=== PATIENT | male | born 1955 | race Caucasian/White ===

== ENCOUNTER → 2016-06-10 | Outpatient (CLI) | payer MEDICARE, BC ==
--- NOTE | 2016-06-11 08:43 | XR ---
Cervical spine HISTORY: Degenerative disc disease 5 views of the cervical spine on 6 images Comparison to previous exam 24 August thousand 13 Patient is status post anterior cervical fusion and discectomy at C5-C7. There is anatomic alignment. Prevertebral soft tissues are normal. Foraminal encroachment due to lateral extension of endplates i s present at C3-4 bilaterally. Cervical vertebral bodies show preserved height and bone mineralizatio n. There is likely facet arthropathy change. IMPRESSION: Postop changes, foraminal encroachment.
== END | disposition home or self-care (01) ==
LOC: RADXRYALE 11:09
PROVIDERS: ATTEND Physical Medicine & Rehabilitation
DX: M50.30 Other cervical disc degeneration, unspecified cervical region (principal); Z98.890 Other specified postprocedural states
CPT/HCPCS: 72050

== ENCOUNTER → 2016-07-29 | Outpatient (CLI) | payer MEDICARE, BC ==
[2016-07-29 11:00] LABS: Basophils % (A) 1 %; CH 27.2; CHCM 32.8; Eosinophils # (A) 0.2 k/uL (0-0.7); Eosinophils % (A) 3 %; HCT 35.3 % (39.0-53.0); HDW 3.25; HGB 11.9 gm/dL (13.0-17.5); Luc # (Auto) 0.16; Luc % (Auto) 2; Lymphocytes # (A) 2.8 k/uL (1.0-4.8); Lymphocytes % (A) 37 %; MCH 28.2 pg (25.0-35.0); MCHC 33.9 g/dL (31.0-37.0); MCV 83.4 fL (80.0-100.0); Mean Platelet Volume 6.6; Monocytes # (A) 0.5 k/uL (0-1.0); Monocytes % (A) 7 %; Neutrophils # (A) 3.8 k/uL (1.3-7.7); Neutrophils % (A) 51 %; RBC 4.23 m/uL (4.30-5.90); RDW 14.1 % (11.5-15.5); WBC 7.5 k/uL (3.8-10.6); WBC (Perox) 7.36
[2016-07-29 11:16] LABS: ALT 19 U/L (21-72); AST 13 U/L (17-59); Alkaline Phosphatase 113 U/L (38-126); Anion Gap 11 mmol/L; Blood Urea Nitrogen 11 mg/dL (9-20); Calcium 8.8 mg/dL (8.4-10.2); Carbon Dioxide 22 mmol/L (22-30); Chloride 106 mmol/L (98-107); Glucose 182 mg/dL (74-99); Non-African American GFR(MDRD) >60 (>60 ml/min/1.73 sqM); Potassium 3.8 mmol/L (3.5-5.1); Sodium 139 mmol/L (137-145); Total Bilirubin 0.5 mg/dL (0.2-1.3); Total Protein 7.6 g/dL (6.3-8.2)
== END | disposition home or self-care (01) ==
LOC: LABWHC1 10:15
PROVIDERS: ATTEND Internal Medicine Gastroenterology
DX: K50.819 Crohn's disease of both small and large intestine with unspecified complications (principal)
CPT/HCPCS: 36415; 80053; 85025; 86480

== ENCOUNTER 2016-08-22 23:13 | Emergency (ER) | payer MEDICARE, BC ==
[~2016-08-22 23:13] MED LIST: LORazepam 2 MG/ML SYRINGE ONE; METOCLOPRAMIDE 5 MG/ML 2 ML VIAL ONE; SODIUM CHLORIDE 0.9% 1,000 ML BAG ONE
[2016-08-23 00:41] LABS: Basophils # (A) 0.1 k/uL (0-0.2); Basophils % (A) 0 %; CH 27.3; CHCM 31.5; Eosinophils % (A) 0 %; HCT 43.4 % (39.0-53.0); HGB 13.5 gm/dL (13.0-17.5); Hypochromasia Slight; Luc % (Auto) 2; Lymphocytes # (A) 2.6 k/uL (1.0-4.8); Lymphocytes % (A) 13 %; MCHC 31.1 g/dL (31.0-37.0); Mean Platelet Volume 6.6; Monocytes % (A) 5 %; Neutrophils # (A) 15.6 k/uL (1.3-7.7); Neutrophils % (A) 80 %; RBC 4.99 m/uL (4.30-5.90); RDW 14.9 % (11.5-15.5); WBC 19.6 k/uL (3.8-10.6); WBC (Perox) 19.58
[2016-08-23 00:42] LABS: Prothrombin Time 10.1 sec (9.0-12.0)
[2016-08-23 00:43] LABS: Partial Thromboplastin Time 21.7 sec (22.0-30.0)
[2016-08-23 00:44] LABS: Creatine Kinase 98 U/L (55-170); Creatine Kinase MB <0.2 ng/mL (0.0-2.4); Troponin I 0.013 ng/mL (0.000-0.034)
[2016-08-23 00:45] LABS: ALT 28 U/L (21-72); AST 29 U/L (17-59); Alkaline Phosphatase 175 U/L (38-126); Amylase 60 U/L (30-110); Anion Gap 24 mmol/L; Blood Urea Nitrogen 15 mg/dL (9-20); Carbon Dioxide 11 mmol/L (22-30); Chloride 104 mmol/L (98-107); Non-African American GFR(MDRD) 44 (>60 ml/min/1.73 sqM); Sodium 139 mmol/L (137-145); Total Bilirubin 0.5 mg/dL (0.2-1.3); Total Protein 8.4 g/dL (6.3-8.2)
[2016-08-23 00:46] LABS: Glucose 451 mg/dL (74-99)
[2016-08-23 00:55] LABS: Amorphous Sediment,Urine Rare /hpf; Appearance,Urine Cloudy (Clear); Bilirubin,Urine Negative (Negative); Glucose,Urine (UA) 4+ (Negative); Granular Casts,Urine 24 /lpf (0); Ketones,Urine Negative (Negative); Leukocyte Esterase,Urine Negative (Negative); Mucus,Urine Rare /hpf; Nitrite,Urine Negative (Negative); PH, Urine 5.5 (5.0-8.0); Particle Count 8661; Protein,Urine 2+ (Negative); RBC,Urine 5 /hpf (0-5); Specific Gravity,Urine 1.017 (1.001-1.035); UA Billing (MACRO vs. MICRO) MICRO; Urobilinogen,Urine <2.0 mg/dL (<2.0); WBC,Urine 10 /hpf (0-5)
[2016-08-23] MEDS ORDERED: INSULIN REGULAR 100 UNIT/ML VIAL ONE (01:00)
[2016-08-23] MEDS ORDERED: HYDROCORTISONE SUCCINATE 100 MG/2 ML VIAL ONE (01:00)
[2016-08-23] MEDS ORDERED: POTASSIUM CHLORIDE 10 MEQ in WATER FOR INJECTION 1 100ML.BAG IVPB SCH (02:00)
[2016-08-23] MEDS ORDERED: HYDROCORTISONE SUCCINATE 100 MG/2 ML VIAL IV STA (02:00)
[2016-08-23 02:22] LABS: ABG Base Excess -5.3 mmol/L; ABG HCO3 19 mmol/L (21-25); ABG PCO2 33 mmHg (35-45); ABG PH 7.38 (7.35-7.45); ABG PO2 115 mmHg (83-108); ABG TCO2 20 mmol/L (19-24)
[2016-08-23] MEDS ORDERED: LORazepam 2 MG/ML SYRINGE ONE (02:52)
--- NOTE | 2016-08-23 03:59 | XR ---
EXAM: XR Chest, 1 View CLINICAL HISTORY: Altered mental status. TECHNIQUE: Frontal view of the chest. COMPARISON: CXR dated 04/24/2016. FINDINGS: Lungs: Slightly low lung volumes with mild prominence of interstitial markings. Retrocardiac opacity. Pleural space: Blunting of costophrenic angles which may represent pleural effusions or pleural-parenchymal disease, also present on prior CXR. No evidence of pneumothorax. Heart: Cardiac silhouette size within normal limits. Mediastinum: Stable postsurgical changes along the left mediastinum. Bones/joints: Stable osseous structures. Anterior spinal fusion hardware in the lower cervical spine. IMPRESSION: 1. Slightly low lung volumes with mild prominence of interstitial markings. 2. Retrocardiac opacity, possibly atelectasis. 3. Blunting of costophrenic angles which may represent small pleural effusions or pleural-parenchymal disease.
[2016-08-23 04:42] LABS: Glucose,Whole Blood 484 mg/dL (75-99)
--- NOTE | 2016-08-23 06:00 | CT ---
EXAM: CT Head Without Intravenous Contrast CLINICAL HISTORY: AMS, restless. TECHNIQUE: Axial computed tomography images of the head/brain without intravenous contrast. Coronal and sagittal reformations provided. DOSE INFORMATION: CTDI is 60.30 mGy and DLP is 1180.90 mGy-cm. This CT exam was performed using one or more of the following dose reduction techniques: automated exposure control, adjustment of the mA and/or kV according to patient size, and/or use of iterative reconstruction technique. COMPARISON: No relevant prior studies available. FINDINGS: Brain: Hyperdense 6 mm focus in the left temporal lobe. Motion artifact somewhat limits evaluation of the supratentorial brain. There is apparent loss of ibarra-white differentiation/sulcation in the right frontal lobe which is favored to be artifactual. Additionally, there is faintly increased attenuation of right frontal sulci which also may be artifactual. No significant white matter disease. No mass effect or midline shift. Ventricles: Unremarkable. No ventriculomegaly. Bones/joints: Unremarkable. No acute fracture. Soft tissues: Unremarkable. Sinuses: Opacity/debris in the left maxillary sinus with air-fluid level. Mild mucosal thickening in the ethmoid sinuses. Remainder of paranasal sinuses otherwise clear. Mastoid air cells: Unremarkable as visualized. No mastoid effusion. IMPRESSION: 1. Hyperdense 6 mm focus in the left temporal lobe. This finding has the appearance of a small cavernous malformation although other lesion or focus of hemorrhage not excluded. MRI with and without contrast recommended for further evaluation. 2. Somewhat limited examination of supratentorial brain due to motion with apparent loss of ibarra-white differentiation/sulcation in the right frontal lobe which may be artifactual. Additionally, there is faintly increased attenuation of right frontal sulci which also may be artifactual with other etiologies such as leptomeningeal vascular congestion or subarachnoid hemorrhage considered less likely. If there is clinical concern for right MCA infarct, CTA and/or MRI can be obtained. 3. Opacity/debris in the left maxillary sinus with air-fluid level. Correlate for acute sinusitis.
== END 2016-08-23 04:23 | disposition other institution (70) ==
LOC: EC 23:46
DX: G40.89 Other seizures (principal); E11.649 Type 2 diabetes mellitus with hypoglycemia without coma; E87.6 Hypokalemia; R41.82 Altered mental status, unspecified; R11.2 Nausea with vomiting, unspecified; Z91.030 Bee allergy status; Z88.8 Allergy status to other drugs, medicaments and biological substances
CPT/HCPCS: 99285; 96374; 96375 ×3; 96361 ×3; 96372; 36415; 36600; 93005; 80053; 82150; 82550; 82553; 82805; 82009; 83690; 84484; 85025; 85610; 85730; 81001; 80306; 71010; 70450; J2060 ×2; J2765; J1720; J3480

== ENCOUNTER → 2017-05-03 | Outpatient (CLI) | payer MEDICARE, BC ==
[2017-05-03 09:12] LABS: HCT 37.6 % (39.0-53.0); HGB 11.3 gm/dL (13.0-17.5); Hypochromasia Moderate; MCH 25.8 pg (25.0-35.0); MCHC 30.2 g/dL (31.0-37.0); MCV 85.3 fL (80.0-100.0); Mean Platelet Volume 6.2; Platelet Count 216 k/uL (150-450); RDW 14.9 % (11.5-15.5); WBC 7.3 k/uL (3.8-10.6)
[2017-05-03 09:30] LABS: Anion Gap 11 mmol/L; Blood Urea Nitrogen 19 mg/dL (9-20); Carbon Dioxide 25 mmol/L (22-30); Chloride 104 mmol/L (98-107); Potassium 3.7 mmol/L (3.5-5.1); Sodium 140 mmol/L (137-145)
== END | disposition home or self-care (01) ==
LOC: LABPAT 08:36 → CATHCVL 09:11
PROVIDERS: ATTEND Internal Medicine Cardiovascular Disease
DX: Z01.812 Encounter for preprocedural laboratory examination (principal); I25.10 Atherosclerotic heart disease of native coronary artery without angina pectoris
CPT/HCPCS: 80051; 82565; 84520; 85027

== ENCOUNTER → 2017-05-03 | Day surgery (SDC) | payer MEDICARE, BC ==
[2017-04-26 09:39] VITALS: BMI 28.3
[~2017-05-03] MED LIST changes: +ALPRAZolam 0.25 MG TAB PO PRN; +ALPRAZolam 0.5 MG TAB PO PRN; +ATORVASTATIN 80 MG TAB PO STA; +HYDROcodone/APAP 5-325MG 1 EACH TAB PO PRN; +HYDROmorphone 0.5 MG/0.5 ML SYRINGE IVP STA; +IOHEXOL 350 MG/ML 125ML BOTTLE INJ ONE; +LIDOCAINE 2% INJ 20 MG/ML (20 ML MDV) ONE; +LIDOCAINE 2% INJ 20 MG/ML SQ ONE; -LORazepam 2 MG/ML SYRINGE ONE; -METOCLOPRAMIDE 5 MG/ML 2 ML VIAL ONE; +MIDAZOLAM 2 MG/2 ML VIAL IV ONE; +MIDAZOLAM 2 MG/2 ML VIAL ONE; +NITROGLYCERIN SL TABS 0.4 MG TAB SUBLINGUAL PRN; +RX INFO: IV CONTRAST WAS GIVEN 1 EACH MISC MISCELLANE PRN; -SODIUM CHLORIDE 0.9% 1,000 ML BAG ONE; +SODIUM CHLORIDE 0.9% 1,000 ML IV SCH; +SODIUM CHLORIDE 0.9% 1,000 ML in EMPTY BAG 1 BAG IV ONE; +fentaNYL (PF) 50 MCG/ML 2 ML AMP IV ONE; +fentaNYL (PF) 50 MCG/ML 2 ML AMP ONE
[2017-05-03 10:29] VITALS: RESP 18
[2017-05-03 10:44] LABS: Glucose,Whole Blood 136 mg/dL (75-99)
[2017-05-03 11:18] LABS: INR 1.1 (<1.2); Prothrombin Time 10.5 sec (9.0-12.0)
--- NOTE | 2017-05-03 13:03 | P.PCN ---
Date of Procedure: 05/03/17 Preoperative Diagnosis: Recurrent chest pains in her multiple risk factors Postoperative Diagnosis: No significant coronary artery disease except mild ectasia in the proximal LAD Procedure(s) Performed: Left heart catheterization without left ventriculography Description of Procedure: HISTORY: This is a 61-year-old gentleman with multiple risk factors including hypertension hypercholesterolemia and diabetes who has been having recurrent chest pains. Though his nuclear stress test was negative, patient was advised to have a cardiac catheterization by Dr. Quispe to rule out underlying ischemic heart disease. CONSENT:I have discussed the risks, benefits and alternative therapies for the above-mentioned procedure and for both sedation/analgesia as well as necessary blood product administration, if indicated, as they pertain to this patient. The patient has indicated understanding and acceptance of the risks and procedures discussed. [] PROCEDURE: Patient was brought to the lab in a fasting state. Patient was given some IV sedation. The right groin is infiltrated with lidocaine and right femoral artery was entered using Seldinger technique. A 6-Indian catheter was left in place and selective coronary arteriography was performed. Patient tolerated the procedure well. Femoral angiogram was performed and Angio-Seal was applied for hemostasis. No immediate complications were noted and patient was transferred to [facility] in a stable condition Conscious Sedation: Versed 1 mg Fentanyl 50 g Duration 18 minutes HEMODYNAMICS: The aortic pressure is about 120/70. Left with an end-diastolic pressure is about 5-10. There was no gradient across the aortic valve SELECTIVE CORONARY ARTERIOGRAPHY: LEFT MAIN: Almost nonexistent with a separate origin of the LAD and circumflex THE LEFT ANTERIOR DESCENDING CORONARY ARTERY:. This is a good caliber vessel with mild to moderate ectatic changes in the proximal portion. No significant focal occlusive disease noted in LAD or its branches. This a good caliber vessel THE LEFT CIRCUMFLEX AND IS CORONARY ARTERY:. This is a good caliber vessel. Free of occlusive disease . circumflex is a dominant vessel THE RIGHT CORONARY ARTERY: Nondominant vessel free of any occlusive disease LEFT VENTRICULOGRAPHY:. Not performed FINAL IMPRESSION:, Mild coronary artery disease with ectasia of the proximal LAD without any significant focal occlusive lesions PLAN: Medical therapy and risk factor modification PROGNOSIS: Fair
[2017-05-03 13:16] LABS: Glucose,Whole Blood 121 mg/dL (75-99)
[2017-05-03 18:04] VITALS: BP 131/79; PULSE 72; TEMP 97.8
== END ==
LOC: CATHCVL 10:30
PROVIDERS: ATTEND Internal Medicine Cardiovascular Disease
DX: I25.10 Atherosclerotic heart disease of native coronary artery without angina pectoris (principal); I42.8 Other cardiomyopathies; I10 Essential (primary) hypertension; Z87.891 Personal history of nicotine dependence; E78.00 Pure hypercholesterolemia, unspecified; E78.5 Hyperlipidemia, unspecified; E11.9 Type 2 diabetes mellitus without complications; Z79.4 Long term (current) use of insulin; Z86.73 Personal history of transient ischemic attack (TIA), and cerebral infarction without residual deficits; J45.909 Unspecified asthma, uncomplicated; Z82.49 Family history of ischemic heart disease and other diseases of the circulatory system; Z79.899 Other long term (current) drug therapy; Z79.51 Long term (current) use of inhaled steroids; Z79.52 Long term (current) use of systemic steroids; Z88.6 Allergy status to analgesic agent; Z88.5 Allergy status to narcotic agent; Z88.0 Allergy status to penicillin; Z88.8 Allergy status to other drugs, medicaments and biological substances
CPT/HCPCS: 93458; 85610; C1760; C1894; C1769; J2001; J2250; J3010; Q9967; J1170; 80051; 82565; 84520; 85027

== ENCOUNTER 2017-06-05 11:38 | Inpatient (IN) | payer MEDICARE, BC ==
[2017-06-05] MEDS ORDERED: IPRATROPIUM-ALBUTEROL 3 ML NEB INHALATION STA (11:58)
[2017-06-05] MEDS ORDERED: SODIUM CHLORIDE 0.9% 1,000 ML IV STA ×2 (11:58)
--- NOTE | 2017-06-05 12:01 | ED ---
Dizziness HPI - General Chief Complaint: Dizziness Stated Complaint: stroke-like symptoms; hx of previous stroke Time Seen by Provider: 06/05/17 11:45 Source: patient, RN notes reviewed Mode of arrival: wheelchair Limitations: no limitations - History of Present Illness Initial Comments: This is a 61-year-old male with a history of a hemorrhagic stroke this previous year who presents with 4 days of onset of lightheadedness dizziness generalized weakness he also states when he tries ambulate he drifts off to the left. He states it feels identical to his previous hemorrhagic stroke that he had last year. He denies any focal deficits to his arms or legs. He does have a generalized headache he also does report that his INR was elevated at over 4 with the last couple days. He is instructed to rest and not take his Coumadin. He is also decreased oral intake he's had nausea vomiting no diarrhea he does however state when he vomits he has been vomiting up dark blood. MD Complaint: dizziness, lightheadedness, difficulty walking, other - Related Data Home Medications Medication Instructions Recorded Confirmed Budesonide-Formot 160-4.5 Mcg 2 puff INHALATION RT-BID 11/13/13 06/05/17 [Symbicort 160-4.5 Mcg Inhaler] Sulfamethox-Tmp 800-160Mg [Bactrim 1 tab PO DAILY 11/13/13 06/05/17 DS 800-160 mg] Tiotropium 18 Mcg/Puff [Spiriva] 1 puff INHALATION RT-DAILY 11/13/13 06/05/17 Promethazine [Phenergan] 25 mg PO Q8HR PRN 02/20/14 06/05/17 Albuterol Inhaler [Ventolin Hfa 2 puff INHALATION RT-Q4H PRN 02/22/17 06/05/17 Inhaler] Atorvastatin [Lipitor] 20 mg PO HS 02/22/17 06/05/17 Esomeprazole Magnesium [NexIUM] 40 mg PO BID 02/22/17 06/05/17 HYDROcodone/APAP 5-325MG [[place] 1 tab PO Q6HR PRN 02/22/17 06/05/17 5-325] Insulin Glargine [Lantus] 24 unit SQ HS 02/22/17 06/05/17 Insulin Lispro [humaLOG Kwikpen] 17 unit SQ QAM 02/22/17 06/05/17 Warfarin [Coumadin] 5 mg PO DAILY 02/22/17 06/05/17 levETIRAcetam [Keppra] 500 mg PO QAM 02/22/17 06/05/17 levETIRAcetam [Keppra] 1,000 mg PO HS 03/10/17 06/05/17 Albuterol Nebulized [Ventolin 2.5 mg INHALATION RT-Q4H PRN 04/26/17 06/05/17 Nebulized] Insulin Lispro [humaLOG Kwikpen] 16 unit SQ W/SUPPER 04/26/17 06/05/17 Insulin Lispro [humaLOG Kwikpen] 17 unit SQ W/LUNCH 04/26/17 06/05/17 LORazepam [Ativan] 0.5 mg PO Q6HR PRN 04/26/17 06/05/17 Nitroglycerin Sl Tabs [Nitrostat] 0.4 mg SUBLINGUAL Q5M PRN 04/26/17 06/05/17 Zolpidem [Ambien] 10 mg PO HS PRN 04/26/17 06/05/17 Allergies Allergy/AdvReac Type Severity Reaction Status Date / Time aspirin Allergy Swelling Verified 06/05/17 12:41 nalbuphine HCl [From Nubain] Allergy Vomiting Verified 06/05/17 12:41 ondansetron HCl [From Zofran] Allergy Unknown Verified 06/05/17 12:41 penicillin G Allergy Rash/Hives Verified 06/05/17 12:41 venom-wasp [Wasp Venom] Allergy Anaphylaxis Verified 06/05/17 12:41 Review of Systems ROS Statement: Those systems with pertinent positive or pertinent negative responses have been documented in the HPI. ROS Other: All systems not noted in ROS Statement are negative. Past Medical History Past Medical History: Asthma, CVA/TIA, Diabetes Mellitus, Deep Vein Thrombosis ( DVT), GERD/Reflux, Osteoarthritis (OA), Skin Disorder Additional Past Medical History / Comment(s): HX OF KIDNEY STONES, CROHNS DISEASE, HX OF BLOOD CLOT RT ARM AND BEHIND RT KNEE, TIA/seizure/brain bleed 2016, see Dr Wright H&P, "spots of dry skin", hx anemia History of Any Multi-Drug Resistant Organisms: MRSA Date of last positivie culture/infection: 2006 MDRO Source:: nose Past Surgical History: Appendectomy, Back Surgery, Bowel Resection, Cholecystectomy, Heart Catheterization, Prostate Surgery Additional Past Surgical History / Comment(s): BOWEL RESECTION X 5, SPINAL SURGERIES X3, LEFT LOBECTOMY. lithotripsy, TURP, neck fusion Past Anesthesia/Blood Transfusion Reactions: No Reported Reaction Past Psychological History: No Psychological Hx Reported Smoking Status: Former smoker Past Alcohol Use History: None Reported Past Drug Use History: None Reported - Past Family History Mother Family Medical History: Deep Vein Thrombosis (DVT) General Exam - General Exam Comments Initial Comments: This is a well-developed well-nourished awake alert oriented 3 male Limitations: no limitations General appearance: alert, in no apparent distress Head exam: Present: atraumatic, normocephalic, normal inspection Eye exam: Present: PERRL, EOMI, other (He does demonstrate some lateral gaze to his right eye which he states is normal for him.). Absent: scleral icterus, conjunctival injection, periorbital swelling ENT exam: Present: mucous membranes dry Neck exam: Present: normal inspection. Absent: tenderness, meningismus, lymphadenopathy Respiratory exam: Present: normal lung sounds bilaterally. Absent: respiratory distress, wheezes, rales, rhonchi, stridor Cardiovascular Exam: Present: normal rhythm, tachycardia, normal heart sounds. Absent: systolic murmur, diastolic murmur, rubs, gallop, clicks GI/Abdominal exam: Present: soft, tenderness (Mild epigastric pain no guarding or rebound), normal bowel sounds. Absent: distended, guarding, rebound, rigid Extremities exam: Present: normal inspection, full ROM, normal capillary refill. Absent: tenderness, pedal edema, joint swelling, calf tenderness Back exam: Present: normal inspection Neurological exam: Present: alert, oriented X3, CN II-XII intact Psychiatric exam: Present: normal affect, normal mood Skin exam: Present: warm, dry, intact, normal color. Absent: rash Course Vital Signs 06/05/17 06/05/17 06/05/17 11:41 12:46 12:54 Temperature 98.1 F Pulse Rate 103 H 100 104 H Respiratory 20 Rate Blood Pressure 92/64 O2 Sat by Pulse 98 Oximetry 06/05/17 13:17 Temperature Pulse Rate 97 Respiratory 20 Rate Blood Pressure 90/52 O2 Sat by Pulse 97 Oximetry EKG Findings - EKG Results: EKG: interpreted by ERMD (Sinus tachycardia rate of 103 appear of 01 76 QRS 96 QT since QTC of 350/468 nonspecific inferior configuration.) Medical Decision Making - Medical Decision Making I did discuss findings with the patient family members patient will be admitted for evaluation he does demonstrate addition to the dizziness dehydration acute renal failure syndrome hypo-ketonemia hypomagnesemia. He did have an episode of hypotension. - Lab Data Result diagrams: 06/05/17 12:20 06/05/17 12:20 Lab Results 06/05/17 06/05/17 06/05/17 Range/Units 12:17 12:20 12:20 WBC (3.8-10.6) k/uL RBC (4.30-5.90) m/uL Hgb (13.0-17.5) gm/dL Hct (39.0-53.0) % MCV (80.0-100.0) fL MCH (25.0-35.0) pg MCHC (31.0-37.0) g/dL RDW (11.5-15.5) % Plt Count (150-450) k/uL Neutrophils % % Lymphocytes % % Monocytes % % Eosinophils % % Basophils % % Neutrophils # (1.3-7.7) k/uL Lymphocytes # (1.0-4.8) k/uL Monocytes # (0-1.0) k/uL Eosinophils # (0-0.7) k/uL Basophils # (0-0.2) k/uL Poikilocytosis Microcytosis PT 29.7 H (9.0-12.0) sec INR 3.3 H (<1.2) Sodium (137-145) mmol/L Potassium (3.5-5.1) mmol/L Chloride (98-107) mmol/L Carbon Dioxide (22-30) mmol/L Anion Gap mmol/L BUN (9-20) mg/dL Creatinine (0.66-1.25) mg/dL Est GFR (MDRD) Af Amer (>60 ml/min/1.73 sqM) Est GFR (MDRD) Non-Af (>60 ml/min/1.73 sqM) Glucose (74-99) mg/dL POC Glucose (mg/dL) 218 H (75-99) mg/dL POC Glu Access Rn ID Alicja Hernández Calcium (8.4-10.2) mg/dL Magnesium (1.6-2.3) mg/dL Total Bilirubin (0.2-1.3) mg/dL AST (17-59) U/L ALT (21-72) U/L Alkaline Phosphatase (38-126) U/L Total Creatine Kinase (55-170) U/L CK-MB (CK-2) (0.0-2.4) ng/mL CK-MB (CK-2) Rel Index Troponin I (0.000-0.034) ng/mL NT-Pro-B Natriuret Pep 46 pg/mL Total Protein (6.3-8.2) g/dL Albumin (3.5-5.0) g/dL Amylase (30-110) U/L Lipase (23-300) U/L 06/05/17 06/05/17 06/05/17 Range/Units 12:20 12:20 12:20 WBC 11.3 H (3.8-10.6) k/uL RBC 5.38 (4.30-5.90) m/uL Hgb 13.3 (13.0-17.5) gm/dL Hct 41.1 (39.0-53.0) % MCV 76.5 L D (80.0-100.0) fL MCH 24.7 L (25.0-35.0) pg MCHC 32.3 (31.0-37.0) g/dL RDW 14.8 (11.5-15.5) % Plt Count 458 H D (150-450) k/uL Neutrophils % 53 % Lymphocytes % 35 % Monocytes % 9 % Eosinophils % 1 % Basophils % 0 % Neutrophils # 5.9 (1.3-7.7) k/uL Lymphocytes # 4.0 (1.0-4.8) k/uL Monocytes # 1.0 (0-1.0) k/uL Eosinophils # 0.2 (0-0.7) k/uL Basophils # 0.1 (0-0.2) k/uL Poikilocytosis Slight Microcytosis Slight PT (9.0-12.0) sec INR (<1.2) Sodium 140 (137-145) mmol/L Potassium 3.2 L (3.5-5.1) mmol/L Chloride 107 (98-107) mmol/L Carbon Dioxide 13 L (22-30) mmol/L Anion Gap 20 mmol/L BUN 45 H (9-20) mg/dL Creatinine 2.11 H (0.66-1.25) mg/dL Est GFR (MDRD) Af Amer 39 (>60 ml/min/1.73 sqM) Est GFR (MDRD) Non-Af 32 (>60 ml/min/1.73 sqM) Glucose 229 H (74-99) mg/dL POC Glucose (mg/dL) (75-99) mg/dL POC Glu Access Rn ID Calcium 10.1 (8.4-10.2) mg/dL Magnesium 1.4 L (1.6-2.3) mg/dL Total Bilirubin 0.7 (0.2-1.3) mg/dL AST 17 (17-59) U/L ALT 22 (21-72) U/L Alkaline Phosphatase 182 H (38-126) U/L Total Creatine Kinase 75 (55-170) U/L CK-MB (CK-2) 0.5 (0.0-2.4) ng/mL CK-MB (CK-2) Rel Index 0.7 Troponin I <0.012 (0.000-0.034) ng/mL NT-Pro-B Natriuret Pep pg/mL Total Protein 8.4 H (6.3-8.2) g/dL Albumin 4.4 (3.5-5.0) g/dL Amylase 56 (30-110) U/L Lipase 214 (23-300) U/L - Radiology Data Radiology results: report reviewed (I did review the imaging and reports no acute findings no evidence of bleed.), image reviewed Critical Care Time Critical Care Time: Yes Critical Care Time: 31 minutes of critical care time which includes initial presentation with history physical labs x-rays reevaluation the patient and discussed with patient family members regarding findings. Discussion with the main physician documentation the above and admission orders. Disposition Clinical Impression: Orthostatic hypotension, Dehydration, Acute renal failure, Hypokalemia, Hypomagnesemia Disposition: ADMITTED IP TO THIS HOSP Condition: Stable Referrals: Adela Lorenz MD [Primary Care Provider] - 1-2 days
--- NOTE | 2017-06-05 12:25 | CT ---
EXAMINATION TYPE: CT brain wo con DATE OF EXAM: 06/05/2017 COMPARISON: Previous study dated 08/23/2016 HISTORY: Weakness, stroke like symptoms CT DLP: 1029 mGycm Automated exposure control for dose reduction was used. FINDINGS: Hyperdense focus in the left temporal lobe has resolved. Central structures are midline. There is no evidence of hydrocephalus. No acute focal lesion, mass ef fect or midline shift is seen. I do not see evidence of intracranial blood. There is a chronic, 2.2 cm retention cyst or polyp in the left maxillary sinus. Visualized portions o f the paranasal sinuses and mastoids are otherwise clear. The bony calvarium is intact. IMPRESSION: 1. NO ACUTE INTRACRANIAL ABNORMALITY. 2. CHRONIC LEFT MAXILLARY SINUS MUCOSAL DISEASE.
[2017-06-05 12:27] LABS: Glucose,Whole Blood 218 mg/dL (75-99)
--- NOTE | 2017-06-05 12:38 | XR ---
EXAMINATION TYPE: XR chest 1V portable DATE OF EXAM: 06/05/2017 HISTORY: pain. REFERENCE: Previous study dated 04/29/2017. FINDINGS: There is a chronic right pleural reaction which may represent pleural fluid or thickening. There is a partial eventration of the right hemidiaphragm. The left lung is clear. Heart size is norm al. Note is made of a previous ACDF in the lower cervical spine. IMPRESSION: CHRONIC RIGHT PLEURAL REACTION.
[2017-06-05 12:45] LABS: INR 3.3 (<1.2); Prothrombin Time 29.7 sec (9.0-12.0)
[2017-06-05] MEDS ORDERED: HYDROmorphone 0.5 MG/0.5 ML SYRINGE IVP STA (13:19)
[2017-06-05] MEDS ORDERED: PROMETHAZINE INJ 25 MG in SODIUM CHLORIDE 0.9% 50 ML IVPB STA (13:26)
[2017-06-05 13:55] LABS: Basophils # (A) 0.1 k/uL (0-0.2); Basophils % (A) 0 %; Eosinophils # (A) 0.2 k/uL (0-0.7); Eosinophils % (A) 1 %; HCT 41.1 % (39.0-53.0); HGB 13.3 gm/dL (13.0-17.5); Lymphocytes % (A) 35 %; MCH 24.7 pg (25.0-35.0); MCHC 32.3 g/dL (31.0-37.0); Microcytosis Slight; Monocytes % (A) 9 %; Neutrophils # (A) 5.9 k/uL (1.3-7.7); Neutrophils % (A) 53 %; Poikilocytosis Slight; RBC 5.38 m/uL (4.30-5.90); RDW 14.8 % (11.5-15.5); WBC 11.3 k/uL (3.8-10.6)
[2017-06-05 14:01] LABS: Creatine Kinase 75 U/L (55-170)
[2017-06-05 14:02] LABS: Albumin 4.4 g/dL (3.5-5.0); Calcium 10.1 mg/dL (8.4-10.2); Magnesium 1.4 mg/dL (1.6-2.3); Potassium 3.2 mmol/L (3.5-5.1); Total Bilirubin 0.7 mg/dL (0.2-1.3); Total Protein 8.4 g/dL (6.3-8.2)
[2017-06-05 14:14] LABS: Creatine Kinase MB 0.5 ng/mL (0.0-2.4); Troponin I <0.012 ng/mL (0.000-0.034)
[2017-06-05 14:20] LABS: MCV 76.5 fL (80.0-100.0)
[2017-06-05 14:21] LABS: Platelet Count 458 k/uL (150-450)
[2017-06-05] MEDS ORDERED: MAGNESIUM SULFATE-D5W PMX 1 GM in DEXTROSE/WATER 1 100ML.BAG IVPB ONE (14:29)
[2017-06-05] MEDS ORDERED: NALOXONE 0.4 MG/ML 1 ML VIAL IV PRN (14:34)
[2017-06-05] MEDS ORDERED: ZOLPIDEM 10 MG TAB PO PRN (14:37)
[2017-06-05] MEDS ORDERED: NITROGLYCERIN SL TABS 0.4 MG TAB SUBLINGUAL PRN (14:37)
[2017-06-05] MEDS ORDERED: LORazepam 0.5 MG TAB PO PRN (14:37)
[2017-06-05] MEDS ORDERED: ALBUTEROL NEBULIZED 2.5 MG/3 ML INHALATION PRN (14:37)
[2017-06-05] MEDS ORDERED: HYDROcodone/APAP 5-325MG 1 EACH TAB PO PRN (14:37)
[2017-06-05] MEDS ORDERED: ALBUTEROL INHALER 60 PUFF/8 GM INHALER INHALATION PRN (17:05)
[2017-06-05 18:30] LABS: Glucose,Whole Blood 169 mg/dL (75-99)
[2017-06-05] MEDS: INSULIN ASPART 100 UNIT/ML 1 ML 10 ML VIAL SQ SCH (18:36)
[2017-06-05] MEDS: 0.9% NACL WITH KCL 20 MEQ/L 1,000 ML IV SCH (19:12)
[2017-06-05] MEDS: HYDROcodone/APAP 10-325MG 1 EACH TAB PO PRN (19:12)
[2017-06-05] MEDS: SYMBICORT 160-4.5 MCG INHALER INHALATION SCH (20:50)
[2017-06-05] MEDS: IPRATROPIUM 0.5 MG/2.5 ML NEBU INHALATION SCH (20:51)
[2017-06-05 21:02] LABS: Glucose,Whole Blood 200 mg/dL (75-99)
[2017-06-05] MEDS: SODIUM BICARBONATE TAB 650 MG TAB PO SCH (22:23)
[2017-06-05] MEDS: PANTOPRAZOLE 40 MG TABLET PO SCH (22:23)
[2017-06-05] MEDS: levETIRAcetam 500 MG TAB PO SCH (22:23)
[2017-06-05] MEDS: ATORVASTATIN 20 MG TAB PO SCH (22:23)
[2017-06-05] MEDS: INSULIN DETEMIR 100 UNIT/ML 10 ML VIAL SQ SCH (22:24)
--- NOTE | 2017-06-05 22:58 | HP ---
HISTORY AND PHYSICAL DATE OF SERVICE: 06/05/2017 CHIEF COMPLAINTS: Dizziness. HISTORY OF PRESENT ILLNESS: This 61-year-old gentleman with a past medical history of multiple problems including asthma, CVA, TIA, history of DVT, GERD, DJD being followed by Dr. Lorenz in the outpatient setting, not feeling well today. For the last 3 or 4 days patient had lightheadedness and dizziness and the patient was in the left side and because of concerns of new stroke, the patient came to [facility] and was admitted to the hospital for further evaluation and treatment. Orthostatic hypotension was suspected. Brain CT showed no acute abnormality. There is no history of fever, rigors or chills. No history of headache, loss of consciousness, seizures. PAST MEDICAL HISTORY: History of fall, CVA, TIA, asthma, diabetes, DVT, GERD, EGD. MEDICATIONS: Prior to admission home medications are: 1. Ambien 10 mg q.h.s. 2. Coumadin 5 mg p.o. daily. 3. Spiriva 1 puff daily. 4. Bactrim DS 1 p.o. daily. 5. Phenergan 25 mg q.8h p.r.n. 6. Nitrostat 0.4 mg sublingual p.r.n. 7. Ativan 0.5 mg every 6 hours p.r.n. 8. Keppra 1000 mg q.h.s. and 500 q.a.m. 9. Humalog 17 units with lunch, 16 with supper, 17 units q.a.m., 24 units subcu q.h.s. 10.Lantus. 11.[place] 5 mg q.6 p.r.n. 12.Nexium 40 mg p.o. b.i.d. 13.Symbicort 160/4.5 two puffs b.i.d. 14.Lipitor 20 mg. 15.Ventolin 2.5 q.4h p.r.n. ALLERGIES: ASPIRIN, NUBAIN, ZOFRAN, PENICILLIN G. WASP VENOM. FAMILY HISTORY: Family history of DVT in the family. SOCIAL HISTORY: Previous history of smoking. No history of current smoking, alcohol intake. REVIEW OF SYSTEMS: ENT: No diminished hearing or vision. CARDIOVASCULAR: No angina or palpitations. Respiratory: No cough or hemoptysis. GI no nausea. no dysuria. Nervous system: As mentioned earlier. Immunology/Allergies: No asthma or hayfever. Musculoskeletal: As mentioned earlier. Hematology/Oncology: No history of anemia. Endocrine: Diabetes. Constitutional: As mentioned. Dermatology: Negative. Rheumatology: Negative. Psychiatric: As mentioned earlier. PHYSICAL EXAMINATION: The patient is alert and oriented times three. Pulse 97, blood pressure 95/52, respiration 20, temperature 98.1, pulse ox 97% on 2 L. HEENT was conjunctivae normal. Oral mucosa moist. Neck is no jugular venous distention. No carotid bruit. No thyroid enlargement. Cardiovascular System: S1, S2 muffled. Respirations: Breath sounds diminished in the bases. No rhonchi. No crackles. ABDOMEN: Soft, nontender. No mass palpable. Legs: No edema and no swelling. Nervous system: Higher functions as mentioned earlier. Moves all 4 limbs. No focal deficits. Lymphatics: No lymph nodes palpable in the neck, axillae or groin. Skin no ulcer, rashes or bleeding. LABS: At this time shows WBC 11.3, hemoglobin is 13.2, sodium 140, potassium 3.2. Creatinine is 2.11. ASSESSMENT: 1. Dizziness and weakness for evaluation possibly dehydration secondary to dehydration. 2. Acute renal failure. 3. Hypomagnesemia. 4. Increased WBC. 5. History of asthma. 6. History of cerebrovascular accident, transient ischemic attack. 7. Diabetes type 2. 8. History of deep vein thrombosis. 9. Gastroesophageal reflux disease. 10.Degenerative joint disease. 11.History of kidney stones. 12.History of Crohn's disease. 13.History of back pain, history of degenerative joint disease. 14.History of seizure disorder. 15.History of intracranial bleed. 16.Remote history of nicotine dependence. RECOMMENDATIONS AND DISCUSSION: In this 61-year-old gentleman who presented with multiple complex medical issues , we will monitor the patient closely, continue the current medications, management and symptomatic treatment. Otherwise, I would recommend cautious IV hydration. Repeat labs. I will hold the Bactrim and I would also recommend nephrology evaluation and repeat labs will be ordered for tomorrow. Orthostatic vitals. Otherwise, there is no indication for an acute stroke, but however, we will monitor the patient closely. Neuro checks. Prognosis guarded because of multiple complex medical issues and further recommendations to follow. The exact etiology of renal failure is not known at this time. I would repeat lytes as well the prognosis guarded because of multiple complex medical issues. Discussed with the patient, understands and agrees. Further recommendations to follow. PIEDAD / IJN: [id number] / RIA
[2017-06-06] MEDS: 0.9% NACL WITH KCL 20 MEQ/L 1,000 ML IV SCH ×2 (06:02→06:34)
[2017-06-06 06:04] LABS: Glucose,Whole Blood 126 mg/dL (75-99)
[2017-06-06] MEDS: HYDROcodone/APAP 10-325MG 1 EACH TAB PO PRN ×2 (06:20→12:31)
[2017-06-06 06:22] LABS: Basophils # (A) 0.1 k/uL (0-0.2); Basophils % (A) 1 %; Eosinophils # (A) 0.3 k/uL (0-0.7); Eosinophils % (A) 3 %; HCT 41.3 % (39.0-53.0); HGB 12.3 gm/dL (13.0-17.5); Hypochromasia Slight; Lymphocytes # (A) 2.8 k/uL (1.0-4.8); Lymphocytes % (A) 32 %; MCH 24.4 pg (25.0-35.0); MCHC 29.8 g/dL (31.0-37.0); Mean Platelet Volume 6.5; Monocytes # (A) 0.8 k/uL (0-1.0); Monocytes % (A) 9 %; Neutrophils # (A) 4.5 k/uL (1.3-7.7); Neutrophils % (A) 52 %; Platelet Count 382 k/uL (150-450); RBC 5.04 m/uL (4.30-5.90); RDW 15.2 % (11.5-15.5); WBC 8.6 k/uL (3.8-10.6)
[2017-06-06] MEDS: PROMETHAZINE 25 MG TAB PO PRN (06:34)
[2017-06-06 06:35] LABS: Calcium 9.1 mg/dL (8.4-10.2); Magnesium 1.9 mg/dL (1.6-2.3); Phosphorus 4.9 mg/dL (2.5-4.5); Potassium 3.3 mmol/L (3.5-5.1)
[2017-06-06] MEDS: IPRATROPIUM 0.5 MG/2.5 ML NEBU INHALATION SCH ×4 (07:02→20:21)
[2017-06-06] MEDS: SYMBICORT 160-4.5 MCG INHALER INHALATION SCH ×2 (07:03→20:21)
[2017-06-06] MEDS ORDERED: SULFAMETHOX-TMP 800-160MG 1 EACH TAB PO SCH (09:00)
[2017-06-06] MEDS: PANTOPRAZOLE 40 MG TABLET PO SCH ×2 (09:22→20:21)
[2017-06-06] MEDS: levETIRAcetam 500 MG TAB PO SCH ×2 (09:22→20:21)
[2017-06-06] MEDS: SODIUM BICARBONATE TAB 650 MG TAB PO SCH ×2 (09:23→20:20)
[2017-06-06] MEDS: INSULIN ASPART 100 UNIT/ML 1 ML 10 ML VIAL SQ SCH ×3 (09:23→20:17)
[2017-06-06] MEDS ORDERED: POTASSIUM CHLORIDE ER 20 MEQ TAB.ER PO STA (09:27)
--- NOTE | 2017-06-06 09:53 | P.NPCON ---
History of Present Illness - Reason for Consult acute renal failure - History of Present Illness Reason for consultation: Acute kidney injury History of present illness: Patient is a 61-year-old male seen in renal consultation for acute kidney injury. His baseline creatinine is 1. Was elevated at 2.1 on admission and is 1.83 today. Patient presented to the hospital with dizziness and gait imbalance. Patient states every time he stood up he was drifting to the left. 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 He is currently maintained on normal saline at 80 mL an hour. Admits to good urine output. No hematuria or dysuria. Denies any chest pain or shortness of breath. Oral intake is good. Denies use of NSAIDs. His blood pressure has been running on the lower side in the systolic 80s to 90s and was a little better at 107/64 this morning. I don't see any diuretics or antihypertensives and his home medications. He does take Bactrim every day which he states his for prophylaxis for lung infection. Denies any family history of renal disease. Vital signs are stable. General: The patient appeared well nourished and normally developed. HEENT: Head exam is unremarkable. Neck is without jugular venous distension. LUNGS: Lungs are clear to auscultation and percussion. Breath sounds decreased. HEART: Rate and Rhythm are regular. First and second heart sounds normal. No murmurs, rubs or gallops. ABDOMEN: Abdominal exam reveals normal bowel sounds. Non-tender and non- distended. No evidence of peritonitis. EXTREMITITES: No clubbing, cyanosis, or edema. Past Medical History Past Medical History: Asthma, CVA/TIA, Diabetes Mellitus, Deep Vein Thrombosis ( DVT), GERD/Reflux, Osteoarthritis (OA), Skin Disorder Additional Past Medical History / Comment(s): HX OF KIDNEY STONES, CROHNS DISEASE, HX OF BLOOD CLOT RT ARM AND BEHIND RT KNEE, TIA/seizure/brain bleed 2016, see Dr Wright H&P, "spots of dry skin", hx anemia History of Any Multi-Drug Resistant Organisms: MRSA Date of last positivie culture/infection: 2006 MDRO Source:: nose Past Surgical History: Appendectomy, Back Surgery, Bowel Resection, Cholecystectomy, Heart Catheterization, Prostate Surgery Additional Past Surgical History / Comment(s): BOWEL RESECTION X 5, SPINAL SURGERIES X3, LEFT LOBECTOMY. lithotripsy, TURP, neck fusion Past Anesthesia/Blood Transfusion Reactions: No Reported Reaction Past Psychological History: No Psychological Hx Reported Smoking Status: Former smoker Past Alcohol Use History: None Reported Additional Past Alcohol Use History / Comment(s): quit smoking 2005, smoked for > 30 yrs. 1-2 PPD Past Drug Use History: None Reported - Past Family History Mother Family Medical History: Deep Vein Thrombosis (DVT) Medications and Allergies Home Medications Medication Instructions Recorded Confirmed Type Budesonide-Formot 160-4.5 Mcg 2 puff INHALATION RT-BID 11/13/13 06/05/17 History [Symbicort 160-4.5 Mcg Inhaler] Sulfamethox-Tmp 800-160Mg [Bactrim 1 tab PO DAILY 11/13/13 06/05/17 History DS 800-160 mg] Tiotropium 18 Mcg/Puff [Spiriva] 1 puff INHALATION RT-DAILY 11/13/13 06/05/17 History Promethazine [Phenergan] 25 mg PO Q8HR PRN 02/20/14 06/05/17 History Albuterol Inhaler [Ventolin Hfa 2 puff INHALATION RT-Q4H PRN 02/22/17 06/05/17 History Inhaler] Atorvastatin [Lipitor] 20 mg PO HS 02/22/17 06/05/17 History Esomeprazole Magnesium [NexIUM] 40 mg PO BID 02/22/17 06/05/17 History HYDROcodone/APAP 5-325MG [[place] 1 tab PO Q6HR PRN 02/22/17 06/05/17 History 5-325] Insulin Glargine [Lantus] 24 unit SQ HS 02/22/17 06/05/17 History Insulin Lispro [humaLOG Kwikpen] 17 unit SQ QAM 02/22/17 06/05/17 History Warfarin [Coumadin] 5 mg PO DAILY 02/22/17 06/05/17 History levETIRAcetam [Keppra] 500 mg PO QAM 02/22/17 06/05/17 History levETIRAcetam [Keppra] 1,000 mg PO HS 03/10/17 06/05/17 History Albuterol Nebulized [Ventolin 2.5 mg INHALATION RT-Q4H PRN 04/26/17 06/05/17 History Nebulized] Insulin Lispro [humaLOG Kwikpen] 16 unit SQ W/SUPPER 04/26/17 06/05/17 History Insulin Lispro [humaLOG Kwikpen] 17 unit SQ W/LUNCH 04/26/17 06/05/17 History LORazepam [Ativan] 0.5 mg PO Q6HR PRN 04/26/17 06/05/17 History Nitroglycerin Sl Tabs [Nitrostat] 0.4 mg SUBLINGUAL Q5M PRN 04/26/17 06/05/17 History Zolpidem [Ambien] 10 mg PO HS PRN 04/26/17 06/05/17 History Allergies Allergy/AdvReac Type Severity Reaction Status Date / Time aspirin Allergy Swelling Verified 06/05/17 12:41 nalbuphine HCl [From Nubain] Allergy Vomiting Verified 06/05/17 12:41 ondansetron HCl [From Zofran] Allergy Unknown Verified 06/05/17 12:41 penicillin G Allergy Rash/Hives Verified 06/05/17 12:41 venom-wasp [Wasp Venom] Allergy Anaphylaxis Verified 06/05/17 12:41 Physical Exam Vitals: Vital Signs Temp Pulse Pulse Resp BP BP Pulse Ox 06/06/17 08:00 97 F L 85 16 107/64 98 06/06/17 07:14 86 06/06/17 07:05 82 96 06/06/17 06:11 93 18 86/50 91 L 06/06/17 06:10 52 L 14 94/64 100 06/06/17 06:09 75 10 L 102/62 97 06/06/17 04:00 96.4 F L 81 12 97/61 99 06/06/17 00:00 96.4 F L 77 10 L 98/63 97 06/05/17 21:03 88 06/05/17 20:50 88 06/05/17 20:00 96.9 F L 86 14 102/66 97 06/05/17 17:00 98.4 F 97 16 114/70 97 06/05/17 16:06 64 18 117/64 95 06/05/17 15:25 97.0 F L 87 16 109/66 96 06/05/17 14:31 90 18 104/70 97 06/05/17 13:17 97 20 90/52 97 06/05/17 12:54 104 H 06/05/17 12:46 100 06/05/17 11:41 98.1 F 103 H 20 92/64 98 Intake and Output 06/05/17 06/06/17 06/06/17 22:59 06:59 14:59 Intake Total 75 360 Balance 75 360 Intake: Intake, IV Titration 75 Amount Sodium Chloride 0.9% 1, 75 000 ml @ 75 mls/hr IV . [id number] STA Rx#:[id number] Oral 360 Other: # Voids 1 1 Weight 97.5 kg 84.1 kg Results - Lab Results Most recent lab results Calcium 9.1 mg/dL (8.4-10.2) 06/06/17 05:52 Phosphorus 4.9 mg/dL (2.5-4.5) H 06/06/17 05:52 Magnesium 1.9 mg/dL (1.6-2.3) 06/06/17 05:52 06/06/17 05:52 06/06/17 05:52 Assessment and Plan Plan: Assessment: #1. Nonoliguric acute kidney injury mostly prerenal secondary to hypotension. Creatinine was 2.1 on admission and is 1.83 today. #2. Metabolic acidosis secondary to acute kidney injury. Improved. #3. Hypokalemia secondary to hypomagnesemia. #4. Hypomagnesemia status post replacement. Improved. #5. Hypotension. Likely related to intravascular volume depletion. Rule out adrenal insufficiency. #6. Insulin-dependent diabetes mellitus. #7. History of hemorrhagic CVA. Plan: Continue normal saline to be run at 80 mL an hour. Replace potassium. 40 mEq today. Maintain oral sodium bicarbonate 1300 mg twice daily. Check orthostatic vital signs. Check TSH and cortisol level. Check urinalysis. Repeat electrolytes in the morning. Encouraged oral intake. Thank you for the consultation. I will continue to follow the patient with you during his hospital stay.
[2017-06-06 11:37] LABS: Glucose,Whole Blood 105 mg/dL (75-99)
[2017-06-06 12:03] LABS: Appearance,Urine Clear (Clear); Bilirubin,Urine Negative (Negative); Blood,Urine Large (Negative); Cellular Casts,Urine 4 /lpf (0); Color,Urine Yellow; Glucose,Urine (UA) Negative (Negative); Hyaline Casts,Urine 14 /lpf (0-2); Ketones,Urine Negative (Negative); Leukocyte Esterase,Urine Negative (Negative); Mucus,Urine Rare /hpf; Nitrite,Urine Negative (Negative); Protein,Urine 1+ (Negative); RBC,Urine >182 /hpf (0-5); Specific Gravity,Urine 1.018 (1.001-1.035); Squamous Epithelial Cell,Urine <1 /hpf (0-4); Urobilinogen,Urine <2.0 mg/dL (<2.0); WBC,Urine 3 /hpf (0-5)
[2017-06-06 16:36] LABS: Glucose,Whole Blood 74 mg/dL (75-99)
[2017-06-06] MEDS: ATORVASTATIN 20 MG TAB PO SCH (20:21)
[2017-06-06 21:08] LABS: Glucose,Whole Blood 192 mg/dL (75-99)
[2017-06-06] MEDS: INSULIN DETEMIR 100 UNIT/ML 10 ML VIAL SQ SCH (21:34)
[2017-06-07 06:18] LABS: Glucose,Whole Blood 119 mg/dL (75-99)
[2017-06-07 06:34] LABS: Basophils % (A) 1 %; Eosinophils # (A) 0.2 k/uL (0-0.7); Eosinophils % (A) 3 %; HCT 35.2 % (39.0-53.0); HGB 10.9 gm/dL (13.0-17.5); Hypochromasia Moderate; Lymphocytes # (A) 2.3 k/uL (1.0-4.8); Lymphocytes % (A) 31 %; MCH 25.2 pg (25.0-35.0); MCHC 31.1 g/dL (31.0-37.0); Mean Platelet Volume 6.6; Monocytes # (A) 0.5 k/uL (0-1.0); Monocytes % (A) 6 %; Neutrophils # (A) 4.2 k/uL (1.3-7.7); Neutrophils % (A) 57 %; Platelet Count 314 k/uL (150-450); RBC 4.34 m/uL (4.30-5.90); RDW 14.7 % (11.5-15.5); WBC 7.3 k/uL (3.8-10.6)
[2017-06-07 06:55] LABS: Anion Gap 11 mmol/L; Blood Urea Nitrogen 38 mg/dL (9-20); Calcium 8.7 mg/dL (8.4-10.2); Carbon Dioxide 19 mmol/L (22-30); Chloride 114 mmol/L (98-107); Glucose 124 mg/dL (74-99); Magnesium 1.6 mg/dL (1.6-2.3); Potassium 3.9 mmol/L (3.5-5.1); Sodium 144 mmol/L (137-145)
[2017-06-07] MEDS: SYMBICORT 160-4.5 MCG INHALER INHALATION SCH (07:45)
[2017-06-07] MEDS: IPRATROPIUM 0.5 MG/2.5 ML NEBU INHALATION SCH ×3 (07:45→16:13)
--- NOTE | 2017-06-07 08:07 | PN ---
PROGRESS NOTE DATE OF SERVICE: 06/06/2017 This 61-year-old gentleman admitted with dizziness no orthostatic hypotension also had acute renal failure. Patient is on IV fluids. The blood pressure is improving. No chest pain or palpitations. Patient is feeling much better. REVIEW OF SYSTEMS: ENT: No diminished hearing or diminished vision. CARDIOVASCULAR SYSTEM: No angina. RESPIRATORY SYSTEM: As mentioned earlier. GI: As mentioned earlier. : As mentioned earlier. MEDICATIONS: The current medications were reviewed and include: 1. [place] 10 mg q.6 p.r.n. 2. Ventolin q.i.d. p.r.n. 3. Lipitor 20 mg q.h.s. 4. Symbicort 160/4.5 two puffs b.i.d. 5. NovoLog scale. 6. Levemir 24 units subcutaneous q.h.s. 7. Albuterol. 8. Keppra 1000 mg q.h.s. 9. Ativan 0.5 mg q.6 p.r.n. 10.Narcan 0.2 q.2. 11.Protonix. 12.Phenergan. 13.Ambien. PHYSICAL EXAM: On exam, alert and oriented x3. Pulse 78, blood pressure 111/64, respiration 14, temperature 96.1, pulse ox 98% on room air. HEENT: Conjunctivae normal. Oral mucosa moist. Neck is no jugular venous distention. No carotid bruit. No lymph node enlargement. CARDIOVASCULAR: S1 and S2 muffled. No S3, no S4. RESPIRATORY: Breath sounds diminished at the bases. No rhonchi, no crackles. ABDOMEN: Soft, nontender. No mass palpable. LEGS: No edema, no swelling. NERVOUS SYSTEM: Higher functions as mentioned earlier, moves all 4 limbs. No focal deficits. LYMPHATICS: No lymphadenopathy of the neck, axillae or groin. SKIN: No ulcer, rash or bleeding. LABS: WBC ntd .Creatinine is to 1.83. UA noted. ASSESSMENT: 1. Dizziness, weakness, possibly dehydration secondary to poor oral intake and orthostatic hypotension. 2. Acute renal failure possibly prerenal renal failure and acute tubular necrosis. 3. Hypomagnesemia. 4. Hypokalemia. 5. Increased WBC. 6. History of asthma. 7. History of cerebrovascular accident, transient ischemic attack. 8. Diabetes mellitus type 2. 9. History of deep venous thrombosis. 10.History of gastroesophageal reflux disease. 11.History of degenerative joint disease. 12.History of kidney stones. 13.History of Crohn disease. 14.History of back pain, degenerative joint disease. 15.History of seizure disorder. 16.History intracranial bleed. 17.Remote history of nicotine dependence. RECOMMENDATIONS AND DISCUSSION: In this 61-year-old gentleman who presented with multiple complex medical issues , will monitor the patient closely. Continue current medications, IV fluids. Monitor blood pressure closely. Otherwise monitor and supplement lytes. Resume the rest of the medications. The creatinine is improved to 1.83 at this time, but will monitor. The patient's magnesium is 1.9 today. Repeat labs. Patient has got hematuria of undetermined significance. Will closely monitor. Prognosis guarded because of multiple complex medical issues. Further recommendations to follow. Daily magnesium has been recommended. Dr. Gerer is following the patient closely. MMODL / IJN: [id number] / MTDD
[2017-06-07] MEDS: PANTOPRAZOLE 40 MG TABLET PO SCH (09:28)
[2017-06-07] MEDS: SODIUM BICARBONATE TAB 650 MG TAB PO SCH (09:28)
[2017-06-07] MEDS: levETIRAcetam 500 MG TAB PO SCH (09:29)
[2017-06-07] MEDS: INSULIN ASPART 100 UNIT/ML 1 ML 10 ML VIAL SQ SCH ×3 (09:29→17:38)
[2017-06-07] MEDS: HYDROcodone/APAP 10-325MG 1 EACH TAB PO PRN ×2 (09:30→15:25)
[2017-06-07] MEDS: PROMETHAZINE 25 MG TAB PO PRN (09:44)
[2017-06-07] MEDS: 0.9% NACL WITH KCL 20 MEQ/L 1,000 ML IV SCH (09:45)
--- NOTE | 2017-06-07 10:17 | P.PN ---
Subjective Patient is seen in follow-up for acute kidney injury. His creatinine was 2.1 on admission and is down to 1.0 today. He is currently maintained on normal saline at 80 mL an hour. He still feels a little dizzy when he stands up. His supine blood pressure was noted to be 112/65 and did drop to 98/62 while standing. No vomiting or diarrhea. Oral intake is good. Vital signs are stable. General: The patient appeared well nourished and normally developed. HEENT: Head exam is unremarkable. Neck is without jugular venous distension. LUNGS: Lungs are clear to auscultation and percussion. Breath sounds decreased. HEART: Rate and Rhythm are regular. First and second heart sounds normal. No murmurs, rubs or gallops. ABDOMEN: Abdominal exam reveals normal bowel sounds. Non-tender and non- distended. No evidence of peritonitis. EXTREMITITES: No clubbing, cyanosis, or edema. Objective - Vital Signs Vital signs: Vital Signs Temp 97 F L 06/07/17 04:00 Pulse 78 06/07/17 07:55 Resp 12 06/07/17 07:52 BP 112/65 06/07/17 06:00 Pulse Ox 96 06/07/17 07:47 Intake & Output 06/06/17 06/07/17 06/07/17 18:59 06:59 18:59 Intake Total 1124 1140 Balance 1124 1140 Weight 85.5 kg Intake: Intake, IV Titration 320 840 Amount 0.9% NaCl with KCl 20 Meq 320 840 /l 1,000 ml @ 80 mls/hr IV .[id number] MONA Rx#: [id number] Sodium Chloride 0.9% 1, 0 000 ml @ 75 mls/hr IV . [id number] STA Rx#:[id number] Oral 804 300 Other: # Voids 2 2 # Bowel Movements 0 - Labs CBC & Chem 7: 06/07/17 05:55 06/07/17 05:55 Labs: Abnormal Lab Results - Last 24 Hours (Table) 06/06/17 06/06/17 06/06/17 Range/Units 11:25 11:33 16:34 Hgb (13.0-17.5) gm/dL Hct (39.0-53.0) % Chloride (98-107) mmol/L Carbon Dioxide (22-30) mmol/L BUN (9-20) mg/dL Glucose (74-99) mg/dL POC Glucose (mg/dL) 105 H 74 L (75-99) mg/dL Urine Protein 1+ H (Negative) Urine Blood Large H (Negative) Urine RBC >182 H (0-5) /hpf Hyaline Casts 14 H (0-2) /lpf Urine Mucus Rare H (None) /hpf 06/06/17 06/07/17 06/07/17 Range/Units 21:07 05:55 05:55 Hgb 10.9 L (13.0-17.5) gm/dL Hct 35.2 L (39.0-53.0) % Chloride 114 H (98-107) mmol/L Carbon Dioxide 19 L (22-30) mmol/L BUN 38 H (9-20) mg/dL Glucose 124 H (74-99) mg/dL POC Glucose (mg/dL) 192 H (75-99) mg/dL Urine Protein (Negative) Urine Blood (Negative) Urine RBC (0-5) /hpf Hyaline Casts (0-2) /lpf Urine Mucus (None) /hpf 06/07/17 Range/Units 06:16 Hgb (13.0-17.5) gm/dL Hct (39.0-53.0) % Chloride (98-107) mmol/L Carbon Dioxide (22-30) mmol/L BUN (9-20) mg/dL Glucose (74-99) mg/dL POC Glucose (mg/dL) 119 H (75-99) mg/dL Urine Protein (Negative) Urine Blood (Negative) Urine RBC (0-5) /hpf Hyaline Casts (0-2) /lpf Urine Mucus (None) /hpf Assessment and Plan Plan: Assessment: #1. Nonoliguric acute kidney injury mostly prerenal secondary to hypotension. Creatinine was 2.1 on admission and is 1.0 today. #2. Metabolic acidosis secondary to acute kidney injury. #3. Hypokalemia secondary to hypomagnesemia. #4. Hypomagnesemia status post replacement. Magnesium level I.6 today. #5. Hypotension. Likely related to intravascular volume depletion. Cortisol level X. #6. Insulin-dependent diabetes mellitus. #7. History of hemorrhagic CVA. #8. Rule out CKD. He does have proteinuria on urinalysis which is likely due to underlying diabetic kidney disease. Will further quantify proteinuria as an outpatient. Plan: Continue normal saline to be run at 80 mL an hour. Maintain oral sodium bicarbonate 1300 mg twice daily. Repeat electrolytes in the morning. Encouraged oral intake. Replace magnesium. 2 g IV today.
[2017-06-07 10:34] VITALS: BMI 25.5
[2017-06-07] MEDS: MAGNESIUM SULFATE-D5W PMX 1 GM in DEXTROSE/WATER 1 100ML.BAG IVPB SCH ×2 (11:25→13:30)
[2017-06-07 12:57] LABS: Glucose,Whole Blood 44 mg/dL (75-99)
[2017-06-07 12:57] LABS: Glucose,Whole Blood 49 mg/dL (75-99)
[2017-06-07] MEDS ORDERED: FLUDROCORTISONE 0.1 MG TAB PO SCH (13:00)
[2017-06-07 14:12] LABS: Glucose,Whole Blood 102 mg/dL (75-99)
[2017-06-07 15:43] VITALS: BP 112/70; RESP 16; TEMP 97.1
[2017-06-07 16:15] VITALS: PULSE 72
[2017-06-07 17:19] LABS: Glucose,Whole Blood 126 mg/dL (75-99)
--- NOTE | 2017-06-08 01:03 | DS ---
DISCHARGE SUMMARY FINAL DIAGNOSES: 1. Dizziness, weakness, possibly dehydration secondary to poor oral intake and orthostatic hypotension. 2. Acute renal failure. possibly prerenal renal failure and acute tubular necrosis, improved. 3. Hypomagnesemia. 4. Hypokalemia. 5. Increased white blood count. 6. History of asthma. 7. History of cerebrovascular accident, transient ischemic attack. 8. Diabetes mellitus type 2. 9. History of deep venous thrombosis. 10.History of gastroesophageal reflux disease. 11.History of degenerative joint disease. 12.History of kidney stones. 13.History of Crohn's disease. 14.History of back pain. 15.Degenerative joint disease. 16.History of seizure disorder. 17.History intracranial bleed. 18.Remote history of nicotine dependence. DISCHARGE DISPOSITION: The patient being discharged in stable condition with guarded prognosis. HISTORY OF PRESENT ILLNESS: This 61-year-old gentleman with a past medical history of multiple medical problems including dizziness, hypotension, renal failure IV fluids. Patient improved significantly. Creatinine improved to 1 and the patient was monitored closely. The patient will be discharged in stable condition with guarded prognosis. On exam, vitals are stable. Cardiovascular: S1 and S2. abdomen is soft. Nervous system: No focal deficits. DISCHARGE ADVICE: 1. Diet is cardiac diet. 2. Activity limited until followup. 3. Followup with Dr. Lorenz in 2-3 days. 4. Followup with Nephrology, Dr. Greer. 5. Followup labs as advised. MEDICATION: 1. Albuterol p.r.n. 2. Albuterol Ventolin 2.5 b.i.d. 3. Lipitor 20 mg q.h.s. 5. Nexium 40 mg p.o. b.i.d. 6. Florinef 0.1 p.o. b.i.d. 7. [place] 5 mg q.6h p.r.n. 8. Lantus 24 units subcu q.h.s. 9. Insulin Humalog 17 units subcu q.a.m. and 16 units with supper and 17 units with lunch. 10.Keppra 500 mg q.a.m. and 1000 mg q.h.s. 11.Ativan 0.5 mg q.h.s. p.r.n. 12.Nitrostat 0.4 mg p.r.n. 13.Phenergan 25 mg q.8h p.r.n. 14.Sodium bicarb 1300 mg p.o. b.i.d. 15.Spiriva 1 puff daily. 16.Coumadin 5 mg p.o. daily. 17.Ambien 10 mg q.h.s. p.r.n. Followup labs CBC, PT/INR with Dr. Lorenz. Once again, the patient will be discharged in stable condition with guarded prognosis. MMODL / IJN: [id number] / MTDD
== END 2017-06-07 18:50 | disposition home or self-care (01) | DRG 683 ==
LOC: EC 11:38 → 6SEL 14:34
PROVIDERS: ADMIT Hospitalist; ATTEND Hospitalist
DX: N17.0 Acute kidney failure with tubular necrosis (principal); E87.2 Acidosis; E11.29 Type 2 diabetes mellitus with other diabetic kidney complication; E83.42 Hypomagnesemia; K50.90 Crohn's disease, unspecified, without complications; E86.9 Volume depletion, unspecified; E87.6 Hypokalemia; G40.909 Epilepsy, unspecified, not intractable, without status epilepticus; Z79.4 Long term (current) use of insulin; Z79.51 Long term (current) use of inhaled steroids; Z79.899 Other long term (current) drug therapy; Z88.0 Allergy status to penicillin; Z88.8 Allergy status to other drugs, medicaments and biological substances; Z88.6 Allergy status to analgesic agent; Z91.030 Bee allergy status; J45.909 Unspecified asthma, uncomplicated; K21.9 Gastro-esophageal reflux disease without esophagitis; M19.90 Unspecified osteoarthritis, unspecified site; Z79.01 Long term (current) use of anticoagulants; Z82.49 Family history of ischemic heart disease and other diseases of the circulatory system; Z86.718 Personal history of other venous thrombosis and embolism; Z86.73 Personal history of transient ischemic attack (TIA), and cerebral infarction without residual deficits; Z87.442 Personal history of urinary calculi; Z87.891 Personal history of nicotine dependence; Z98.1 Arthrodesis status
CPT/HCPCS: 36415; 70450; 71045; 80048; 80053; 81001; 82150; 82533; 82550; 82553; 83690; 83735; 83880; 84100; 84443; 84484; 85025; 85610; 93005; 94640; 94760; 96361; 96365; 96375; 99291

== ENCOUNTER → 2017-06-24 | Outpatient (CLI) | payer BC, MEDICARE ==
[2017-06-24 14:18] LABS: ALT 20 U/L (21-72); AST 15 U/L (17-59); Albumin 3.3 g/dL (3.5-5.0); Alkaline Phosphatase 97 U/L (38-126); Anion Gap 12 mmol/L; Blood Urea Nitrogen 14 mg/dL (9-20); Calcium 8.1 mg/dL (8.4-10.2); Carbon Dioxide 22 mmol/L (22-30); Chloride 108 mmol/L (98-107); Glucose 144 mg/dL (74-99); Potassium 3.4 mmol/L (3.5-5.1); Sodium 142 mmol/L (137-145); Total Bilirubin 0.3 mg/dL (0.2-1.3); Total Protein 6.6 g/dL (6.3-8.2)
[2017-06-24 14:19] LABS: Anisocytosis Slight; Basophils % (A) 0 %; Eosinophils # (A) 0.2 k/uL (0-0.7); Eosinophils % (A) 3 %; HCT 31.2 % (39.0-53.0); HGB 9.8 gm/dL (13.0-17.5); Hypochromasia Moderate; Lymphocytes # (A) 2.2 k/uL (1.0-4.8); Lymphocytes % (A) 33 %; MCH 25.4 pg (25.0-35.0); MCHC 31.4 g/dL (31.0-37.0); Mean Platelet Volume 6.5; Monocytes # (A) 0.4 k/uL (0-1.0); Monocytes % (A) 6 %; Neutrophils # (A) 3.6 k/uL (1.3-7.7); Neutrophils % (A) 56 %; Platelet Count 260 k/uL (150-450); RBC 3.85 m/uL (4.30-5.90); RDW 16.7 % (11.5-15.5); WBC 6.5 k/uL (3.8-10.6)
== END | disposition home or self-care (01) ==
LOC: LABWHC1 13:29
PROVIDERS: ATTEND Internal Medicine Gastroenterology
DX: K50.811 Crohn's disease of both small and large intestine with rectal bleeding (principal)
CPT/HCPCS: 36415; 80053; 85025

== ENCOUNTER → 2017-09-16 | Outpatient (CLI) | payer MEDICARE ==
[2017-09-16 13:02] LABS: Anisocytosis Slight; HGB 10.7 gm/dL (13.0-17.5); MCH 26.8 pg (25.0-35.0); MCHC 32.3 g/dL (31.0-37.0); Mean Platelet Volume 6.7; Platelet Count 275 k/uL (150-450); RBC 3.97 m/uL (4.30-5.90); RDW 16.9 % (11.5-15.5); WBC 8.1 k/uL (3.8-10.6)
[2017-09-16 13:21] LABS: ALT 26 U/L (21-72); AST 17 U/L (17-59); Albumin 4.1 g/dL (3.5-5.0); Alkaline Phosphatase 109 U/L (38-126); Anion Gap 14 mmol/L; Blood Urea Nitrogen 12 mg/dL (9-20); Calcium 8.6 mg/dL (8.4-10.2); Carbon Dioxide 22 mmol/L (22-30); Chloride 105 mmol/L (98-107); Glucose 142 mg/dL (74-99); Potassium 4.3 mmol/L (3.5-5.1); Sodium 141 mmol/L (137-145); Total Bilirubin 0.3 mg/dL (0.2-1.3); Total Protein 7.2 g/dL (6.3-8.2)
== END | disposition home or self-care (01) ==
LOC: LABWHC1 12:06
PROVIDERS: ATTEND Psychiatry & Neurology Neurology
DX: G40.909 Epilepsy, unspecified, not intractable, without status epilepticus (principal)
CPT/HCPCS: 36415; 80053; 80177; 85027

== ENCOUNTER → 2018-09-26 | Outpatient (CLI) | payer MEDICARE ==
[2018-09-26 18:14] LABS: Anisocytosis Slight; HCT 36.5 % (39.0-53.0); HGB 11.6 gm/dL (13.0-17.5); Hypochromasia Slight; MCH 29.9 pg (25.0-35.0); MCHC 31.7 g/dL (31.0-37.0); MCV 94.2 fL (80.0-100.0); Platelet Count 210 k/uL (150-450); RBC 3.87 m/uL (4.30-5.90); RDW 17.1 % (11.5-15.5); WBC 7.6 k/uL (3.8-10.6)
[2018-09-26 19:22] LABS: Erythrocyte Sedimentation Rate 31 mm/hr (0-15)
[2018-09-27 00:47] LABS: ALT 17 U/L (10-49); AST 18 U/L (14-35); African American GFR (CKD) 104.2 (60.0-200.0); Albumin/Globulin Ratio 1.26 (1.60-3.17); Alkaline Phosphatase 112 U/L (41-126); BUN/Creat Ratio 16.67 Ratio (12.00-20.00); C Reactive Protein <0.4 mg/dL (0.0-0.8); Calcium 9.1 mg/dL (8.7-10.3); Carbon Dioxide 25.6 mmol/L (21.6-31.8); Chloride 102 mmol/L (96-109); Globulin 3.4 g/dL (1.6-3.3); Glucose 115 mg/dL (70-110); Potassium 3.9 mmol/L (3.5-5.5); Sodium 139 mmol/L (135-145); Total Bilirubin 0.8 mg/dL (0.3-1.2); Total Protein 7.7 g/dL (6.2-8.2)
== END | disposition home or self-care (01) ==
LOC: LABWHC1 17:12
DX: K50.90 Crohn's disease, unspecified, without complications (principal)
CPT/HCPCS: 36415; 80053; 82306; 85027; 85652; 86140

== ENCOUNTER → 2018-11-04 | Outpatient (CLI) | payer MEDICARE ==
--- NOTE | 2018-11-04 13:26 | XR ---
EXAMINATION TYPE: XR Hip Complete RT DATE OF EXAM: 11/04/2018 CLINICAL HISTORY: pain TECHNIQUE: AP and frogleg views of the right hip are obtained. COMPARISON: None. FINDINGS: There is no acute fracture/dislocation evident. The joint space appears mild degenerativ e joint space narrowing noted.. The overlying soft tissue appears unremarkable. IMPRESSION: 1. There is no acute fracture or dislocation. ICD 10 NO FRACTURE, INITIAL EVALUATION
--- NOTE | 2018-11-04 13:28 | XR ---
EXAMINATION TYPE: XR lumbosacral spine min 4V DATE OF EXAM: 11/04/2018 CLINICAL HISTORY: pain COMPARISON: NONE TECHNIQUE: Frontal, lateral, and oblique images of the lumbar spine are obtained. FINDINGS: There are 5 lumbar type vertebral bodies identified. The lumbar spine shows satisfactory alignment without evidence of acute fracture or dislocation. Vertebral body heights are within normal limits. Postoperative changes of lumbar fusion L5-S1 with normal alignment. Mild degenerative narrow ing L4-5. Mild scattered ventral spondylosis. Bilateral nephrolithiasis. The overlying soft tissue appears unremarkable. IMPRESSION: No acute fracture or dislocation is seen in the lumbar spine.ICD 10 NO FRACTURE, INITIAL EVALUATION
== END | disposition home or self-care (01) ==
LOC: RADXRYALE 11:58
PROVIDERS: ATTEND Internal Medicine
DX: M54.41 Lumbago with sciatica, right side (principal); R10.31 Right lower quadrant pain
CPT/HCPCS: 72110; 73502

== ENCOUNTER → 2019-02-14 | Outpatient (CLI) | payer MEDICARE ==
--- NOTE | 2019-02-14 15:38 | XR ---
Left knee HISTORY: Pain 2 views of the left knee Bone mineralization, joint spaces and alignment are maintained. No fracture or dislocation. Intimal j oint effusion suspected. IMPRESSION: Small joint effusion
== END | disposition home or self-care (01) ==
LOC: RADXRYALE 10:55
PROVIDERS: ATTEND Internal Medicine
DX: M25.462 Effusion, left knee (principal)

== ENCOUNTER 2019-06-16 11:10 | Emergency (ER) | payer MEDICARE ==
[2019-06-16 10:24] LABS: African American GFR (CKD) >90 (>60 ml/min/1.73 sqM); Blood Urea Nitrogen 19 mg/dL (9-20); Non-African American GFR(CKD) >90 (>60 ml/min/1.73 sqM)
[2019-06-16 11:25] VITALS: RESP 20; TEMP 97.8
--- NOTE | 2019-06-16 11:54 | ED ---
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 Patient is having left-sided chest pain worse with deep inspiration. This is been ongoing for several months. No fever. No significant dyspnea. No central chest pain. Patient had been sent for an outpatient CT however IV was not able to be established and the patient was sent to the emergency department for IV access and CT angiography. - Related Data Home Medications Medication Instructions Recorded Confirmed Budesonide-Formot 160-4.5 Mcg 2 puff INHALATION RT-BID 11/13/13 06/05/17 [Symbicort 160-4.5 Mcg Inhaler] Tiotropium 18 Mcg/Puff [Spiriva] 1 puff INHALATION RT-DAILY 11/13/13 06/05/17 Promethazine [Phenergan] 25 mg PO Q8HR PRN 02/20/14 06/05/17 Albuterol Inhaler [Ventolin Hfa 2 puff INHALATION RT-Q4H PRN 02/22/17 06/05/17 Inhaler] Atorvastatin [Lipitor] 20 mg PO HS 02/22/17 06/05/17 Esomeprazole Magnesium [NexIUM] 40 mg PO BID 02/22/17 06/05/17 HYDROcodone/APAP 5-325MG [[place] 1 tab PO Q6HR PRN 02/22/17 06/05/17 5-325] Insulin Glargine [Lantus] 24 unit SQ HS 02/22/17 06/05/17 Insulin Lispro [humaLOG Kwikpen] 17 unit SQ QAM 02/22/17 06/05/17 Warfarin [Coumadin] 5 mg PO DAILY 02/22/17 06/05/17 levETIRAcetam [Keppra] 500 mg PO QAM 02/22/17 06/05/17 levETIRAcetam [Keppra] 1,000 mg PO HS 03/10/17 06/05/17 Albuterol Nebulized [Ventolin 2.5 mg INHALATION RT-Q4H PRN 04/26/17 06/05/17 Nebulized] Insulin Lispro [humaLOG Kwikpen] 16 unit SQ W/SUPPER 04/26/17 06/05/17 Insulin Lispro [humaLOG Kwikpen] 17 unit SQ W/LUNCH 04/26/17 06/05/17 LORazepam [Ativan] 0.5 mg PO Q6HR PRN 04/26/17 06/05/17 Nitroglycerin Sl Tabs [Nitrostat] 0.4 mg SUBLINGUAL Q5M PRN 04/26/17 06/05/17 Zolpidem [Ambien] 10 mg PO HS PRN 04/26/17 06/05/17 Previous Rx's Medication Instructions Recorded Fludrocortisone [Florinef] 0.1 mg PO BID #60 tab 06/07/17 Sodium Bicarbonate Tab 1,300 mg PO BID #60 tab 06/07/17 Allergies Allergy/AdvReac Type Severity Reaction Status Date / Time aspirin Allergy Swelling Verified 06/16/19 11:25 nalbuphine HCl [From Nubain] Allergy Vomiting Verified 06/16/19 11:25 ondansetron HCl [From Zofran] Allergy Unknown Verified 06/16/19 11:25 penicillin G Allergy Rash/Hives Verified 06/16/19 11:25 venom-wasp [Wasp Venom] Allergy Anaphylaxis Verified 06/16/19 11:25 Review of Systems ROS Statement: Those systems with pertinent positive or pertinent negative responses have been documented in the HPI. ROS Other: All systems not noted in ROS Statement are negative. Past Medical History Past Medical History: Asthma, CVA/TIA, Diabetes Mellitus, Deep Vein Thrombosis (DVT), GERD/Reflux, Osteoarthritis (OA), Skin Disorder Additional Past Medical History / Comment(s): HX OF KIDNEY STONES, CROHNS DISEASE, HX OF BLOOD CLOT RT ARM AND BEHIND RT KNEE, TIA/seizure/brain bleed 08/2016, see Dr Wright H&P, "spots of dry skin", hx anemia History of Any Multi-Drug Resistant Organisms: MRSA Date of last positivie culture/infection: 2006 MDRO Source:: nose Past Surgical History: Appendectomy, Back Surgery, Bowel Resection, Cholecystectomy, Heart Catheterization, Prostate Surgery Additional Past Surgical History / Comment(s): BOWEL RESECTION X 5, SPINAL SURGERIES X3, LEFT LOBECTOMY. lithotripsy, TURP, neck fusion Past Anesthesia/Blood Transfusion Reactions: No Reported Reaction Past Psychological History: No Psychological Hx Reported Smoking Status: Former smoker Past Alcohol Use History: None Reported Past Drug Use History: None Reported - Past Family History Mother Family Medical History: Deep Vein Thrombosis (DVT) General Exam Limitations: no limitations General appearance: alert, in no apparent distress Head exam: Present: atraumatic, normocephalic Eye exam: Present: normal appearance, PERRL ENT exam: Present: normal exam Neck exam: Present: normal inspection. Absent: tenderness, meningismus Respiratory exam: Present: normal lung sounds bilaterally. Absent: respiratory distress, wheezes Cardiovascular Exam: Present: regular rate, normal rhythm GI/Abdominal exam: Present: soft. Absent: distended, tenderness, guarding Extremities exam: Present: normal inspection, normal capillary refill. Absent: pedal edema, calf tenderness Neurological exam: Present: alert, oriented X3, CN II-XII intact. Absent: motor sensory deficit Psychiatric exam: Present: normal affect, normal mood Skin exam: Present: warm, dry, intact. Absent: cyanosis, diaphoretic Course Vital Signs 06/16/19 11:23 Temperature 97.8 F Pulse Rate 79 Respiratory 20 Rate Blood Pressure 132/75 O2 Sat by Pulse 99 Oximetry Medical Decision Making - Medical Decision Making 63-year-old male with 2 months of left pleuritic chest pain. Patient sent for outpatient CT angiography. IV was unable to be established and patient was sent to the emergency department for IV access. I did establish a left upper extremi ty ultrasound guided IV. Patient went for CT angiography which was negative. Patient's bus mechanic Dr. Qureshi has been paged. He will continue to follow this patient on an outpatient basis. Patient is eager for discharge. - Lab Data Result diagrams: 06/16/19 09:51 Lab Results 06/16/19 Range/Units 09:51 BUN 19 (9-20) mg/dL Creatinine 0.59 L (0.66-1.25) mg/dL Est GFR (CKD-EPI)AfAm >90 (>60 ml/min/1.73 sqM) Est GFR (CKD-EPI)NonAf >90 (>60 ml/min/1.73 sqM) Disposition Clinical Impression: Pleuritic chest pain Disposition: HOME SELF-CARE Condition: Good Instructions (If sedation given, give patient instructions): Chest Pain (ED) Is patient prescribed a controlled substance at d/c from ED?: No Referrals: Adela Lorenz MD [Primary Care Provider] - 1-2 days Tevin Qureshi MD [STAFF PHYSICIAN] - 1-2 days Time of Disposition: 13:54
--- NOTE | 2019-06-16 13:19 | CT ---
CT CHEST FOR PULMONARY EMBOLISM. EXAMINATION TYPE: CT angio chest DATE OF EXAM: 06/16/2019 INDICATION: Shortness of breath. CT DLP: 429.1 mGycm, Automated exposure control for dose reduction was used. CONTRAST: Patient injected with 100 mL of Isovue 370. COMPARISON: None TECHNIQUE: CT of the chest is performed on a spiral scan at 2 mm thick sections. Study is performed with intravenous contrast timed for evaluation for pulmonary embolism. This will limit additional po rtions of the evaluation. 3-D MIP images reconstructed by the technologist are reviewed on the compu ter in the coronal and sagittal planes. FINDINGS: No persistent filling defects are evident to suggest an acute pulmonary embolism. No mediastinal or hilar adenopathy enlarged by CT criteria is evident. The ascending aorta diameter at the level of the main pulmonary artery is 3.1 cm. The main pulmonary artery diameter at the bifur cation is 2.4 cm. No suspicious consolidations are evident. Emphysematous changes are present. No suspicious nodules. Limited CT section through the upper abdomen are unremarkable. IMPRESSIONS: 1. No acute pulmonary embolism.
[2019-06-16 14:28] VITALS: BP 128/77; PULSE 75
== END 2019-06-16 14:28 | disposition home or self-care (01) ==
LOC: EC 11:10 → EDSTATUS 11:20 → EC 14:28
DX: R07.81 Pleurodynia (principal); J45.909 Unspecified asthma, uncomplicated; K21.9 Gastro-esophageal reflux disease without esophagitis; M19.90 Unspecified osteoarthritis, unspecified site; Z87.891 Personal history of nicotine dependence; Z88.0 Allergy status to penicillin; Z88.5 Allergy status to narcotic agent; Z88.6 Allergy status to analgesic agent; Z88.8 Allergy status to other drugs, medicaments and biological substances; Z91.038 Other insect allergy status; Z79.01 Long term (current) use of anticoagulants; Z79.4 Long term (current) use of insulin; Z79.51 Long term (current) use of inhaled steroids; Z79.891 Long term (current) use of opiate analgesic; Z79.899 Other long term (current) drug therapy; Z86.73 Personal history of transient ischemic attack (TIA), and cerebral infarction without residual deficits; Z86.718 Personal history of other venous thrombosis and embolism; Z86.14 Personal history of Methicillin resistant Staphylococcus aureus infection; Z98.1 Arthrodesis status
CPT/HCPCS: 82565; 84520; 71275; 99284; Q9967

== ENCOUNTER 2019-06-27 06:15 | Day surgery (SDC) | payer MEDICARE ==
[2019-06-23 12:35] VITALS: BMI 28.3
[~2019-06-27 06:15] MED LIST changes: -ALPRAZolam 0.25 MG TAB PO PRN; -ALPRAZolam 0.5 MG TAB PO PRN; -ATORVASTATIN 80 MG TAB PO STA; -HYDROcodone/APAP 5-325MG 1 EACH TAB PO PRN; -HYDROmorphone 0.5 MG/0.5 ML SYRINGE IVP STA; -IOHEXOL 350 MG/ML 125ML BOTTLE INJ ONE; +LACTATED RINGERS 1,000 ML IV SCH; -LIDOCAINE 2% INJ 20 MG/ML (20 ML MDV) ONE; -LIDOCAINE 2% INJ 20 MG/ML SQ ONE; -MIDAZOLAM 2 MG/2 ML VIAL IV ONE; -MIDAZOLAM 2 MG/2 ML VIAL ONE; -NITROGLYCERIN SL TABS 0.4 MG TAB SUBLINGUAL PRN; -RX INFO: IV CONTRAST WAS GIVEN 1 EACH MISC MISCELLANE PRN; -SODIUM CHLORIDE 0.9% 1,000 ML IV SCH; -SODIUM CHLORIDE 0.9% 1,000 ML in EMPTY BAG 1 BAG IV ONE; -fentaNYL (PF) 50 MCG/ML 2 ML AMP IV ONE; -fentaNYL (PF) 50 MCG/ML 2 ML AMP ONE
[2019-06-27 06:47] VITALS: TEMP 97.5
[2019-06-27] MEDS ORDERED: LIDOCAINE 1% (10MG/ML) FOR IV START INTRADERMA ONE (07:13)
[2019-06-27] MEDS ORDERED: HYDROCORTISONE SUCCINATE 100 MG/2 ML VIAL IV ONE (07:18)
[2019-06-27 07:22] LABS: Glucose,Whole Blood 111 mg/dL (75-99)
[2019-06-27 07:22] LABS: Glucose,Whole Blood 79 mg/dL (75-99)
[2019-06-27 07:22] LABS: Glucose,Whole Blood 119 mg/dL (75-99)
[2019-06-27] MEDS ORDERED: PROPOFOL 10 MG/ML 20 ML VIAL IV ONE (07:33)
[2019-06-27] MEDS ORDERED: IV FLUID CONTINUATION 600 ML IV ONE (08:12)
--- NOTE | 2019-06-27 08:17 | P.PCN ---
Date of Procedure: 06/27/19 Description of Procedure: BRIEF HISTORY: Patient is a 63-year-old male with a long-standing history of Crohn's disease presenting for outpatient colonoscopy. The patient reports a history of stricturing Crohn's disease of the small bowel requiring 5 surgeries in the past. Previously the patient had been on biologic therapy with Entyvio and currently is being treated with Entocort. PROCEDURE PERFORMED: Colonoscopy with biopsy. PREOPERATIVE DIAGNOSIS: Crohn's disease. ESTIMATED BLOOD LOSS: Minimal. IV sedation per Anesthesia. PROCEDURE: After informed consent was obtained, the patient, was brought into the endoscopy unit. IV sedation was administered by Anesthesia under continuous monitoring. Digital rectal examination was normal. Initially the Olympus CF-190 flexible video colonoscope was then inserted in the rectum, gradually advanced to ileocolonic anastomosis and then into the neoterminal ileum.. Careful examination was performed as the scope was gradually being withdrawn. There were multiple ulcers in the neoterminal ileum suggestive of moderate ileitis with ulcerations at the anastomotic site also noted with multiple biopsies taken of the ileum. Prep was excellent. Mucosa of the ascending colon, transverse colon, descending colon, sigmoid colon, and rectum appeared normal, with biopsies taken of the transverse colon, descending colon, sigmoid colon and rectum. Retroflexion was performed in the rectum and no lesions were seen. The patient tolerated the procedure well. IMPRESSION: Moderate ileitis with multiple superficial ulcerations noted in the ileum and at the ileocolonic anastomosis with biopsies of ileum taken. Otherwise normal appearing colon with biopsies taken of the transverse colon, descending colon, sigmoid colon and rectum. RECOMMENDATIONS: Findings of this examination were discussed with the patient and his . Okay to resume diet. Okay to resume medications. Continue current medical regimen. Consideration for escalation in therapy in the future if patient continues to have symptoms and inflammatory markers consistent with evidence of moderate ileitis on colonoscopy. Await pathology from biopsies. Would recommend repeat colonoscopy in 2 years for surveillance.
[2019-06-27 08:34] VITALS: BP 97/53; PULSE 63; RESP 20
== END 2019-06-27 09:04 | disposition home or self-care (01) ==
LOC: ORWHC2ENDO 06:15
PROVIDERS: ATTEND Internal Medicine
DX: K50.00 Crohn's disease of small intestine without complications (principal); K52.9 Noninfective gastroenteritis and colitis, unspecified; E11.9 Type 2 diabetes mellitus without complications; I10 Essential (primary) hypertension; J44.9 Chronic obstructive pulmonary disease, unspecified; R56.9 Unspecified convulsions; K21.9 Gastro-esophageal reflux disease without esophagitis; Z88.8 Allergy status to other drugs, medicaments and biological substances; Z88.6 Allergy status to analgesic agent; Z88.0 Allergy status to penicillin; Z88.5 Allergy status to narcotic agent; Z87.891 Personal history of nicotine dependence; Z91.038 Other insect allergy status; Z79.899 Other long term (current) drug therapy; Z79.4 Long term (current) use of insulin; Z79.51 Long term (current) use of inhaled steroids; Z90.49 Acquired absence of other specified parts of digestive tract; Z98.890 Other specified postprocedural states; Z90.2 Acquired absence of lung [part of]; Z97.2 Presence of dental prosthetic device (complete) (partial); Z86.73 Personal history of transient ischemic attack (TIA), and cerebral infarction without residual deficits; Z98.0 Intestinal bypass and anastomosis status; Z82.49 Family history of ischemic heart disease and other diseases of the circulatory system
CPT/HCPCS: 88305; 45380; J1720; J2704

== ENCOUNTER → 2019-07-07 | Outpatient (CLI) | payer MEDICARE ==
[2019-07-07 08:39] LABS: Basophils % (A) 0 %; Eosinophils # (A) 0.2 k/uL (0-0.7); Eosinophils % (A) 3 %; HCT 36.1 % (39.0-53.0); HGB 11.7 gm/dL (13.0-17.5); Lymphocytes # (A) 1.7 k/uL (1.0-4.8); Lymphocytes % (A) 26 %; MCH 31.2 pg (25.0-35.0); MCHC 32.5 g/dL (31.0-37.0); MCV 95.8 fL (80.0-100.0); Mean Platelet Volume 7.1; Monocytes # (A) 0.4 k/uL (0-1.0); Monocytes % (A) 6 %; Neutrophils # (A) 3.9 k/uL (1.3-7.7); Neutrophils % (A) 62 %; Platelet Count 190 k/uL (150-450); RBC 3.77 m/uL (4.30-5.90); RDW 14.9 % (11.5-15.5); WBC 6.4 k/uL (3.8-10.6)
--- NOTE | 2019-07-07 09:41 | XR ---
Left shoulder HISTORY: Decreased range of motion left arm 4 views of left shoulder Arthropathy is present at the acromioclavicular joint. Left lung apex as visualized is normal. Surgic al clips are present in the chest. Bone mineralization and alignment are maintained. There is mild sp urring glenohumeral joint. No fracture or dislocation. IMPRESSION: There are findings of osteoarthritis.
[2019-07-07 16:28] LABS: African American GFR (CKD) 115.6 (60.0-200.0); Albumin 4.1 g/dL (3.80-4.90); Albumin/Globulin Ratio 1.41 (1.60-3.17); Anion Gap 8.3 mmol/L (4.00-12.00); BUN/Creat Ratio 24.29 Ratio (12.00-20.00); Calcium 8.7 mg/dL (8.7-10.3); Carbon Dioxide 24.7 mmol/L (21.6-31.8); Chol/HDL Ratio 3.47; Globulin 2.9 g/dL (1.6-3.3); LDL Cholesterol,Calculated 26.2 mg/dL (0.0-131.0); Non-African American GFR(CKD) 99.7 (60.0-200.0); Potassium 3.7 mmol/L (3.5-5.5); Total Bilirubin 0.4 mg/dL (0.3-1.2); VLDL Calculation 62.8 mg/dL (5.00-40.00)
[2019-07-07 17:21] LABS: Hemoglobin A1C 8.9 % (4.0-6.0)
== END | disposition home or self-care (01) ==
LOC: LABWHC1 07:55
PROVIDERS: ATTEND Internal Medicine
DX: M19.012 Primary osteoarthritis, left shoulder (principal); E78.00 Pure hypercholesterolemia, unspecified; E11.9 Type 2 diabetes mellitus without complications; I10 Essential (primary) hypertension
CPT/HCPCS: 36415; 80053; 80061; 83036; 85025

== ENCOUNTER → 2019-10-06 | Outpatient (CLI) | payer MEDICARE ==
[2019-10-06 12:42] LABS: Basophils % (A) 1 %; Eosinophils # (A) 0.3 k/uL (0-0.7); Eosinophils % (A) 5 %; HCT 37.8 % (39.0-53.0); HGB 12.1 gm/dL (13.0-17.5); Lymphocytes # (A) 1.5 k/uL (1.0-4.8); Lymphocytes % (A) 29 %; MCH 31.7 pg (25.0-35.0); MCHC 32.1 g/dL (31.0-37.0); MCV 98.8 fL (80.0-100.0); Mean Platelet Volume 6.7; Monocytes # (A) 0.3 k/uL (0-1.0); Monocytes % (A) 7 %; Neutrophils # (A) 2.9 k/uL (1.3-7.7); Neutrophils % (A) 57 %; Platelet Count 200 k/uL (150-450); RBC 3.83 m/uL (4.30-5.90); RDW 14.8 % (11.5-15.5); WBC 5.2 k/uL (3.8-10.6)
[2019-10-06 19:15] LABS: African American GFR (CKD) 108.6 (60.0-200.0); Albumin 3.9 g/dL (3.80-4.90); Albumin/Globulin Ratio 1.39 (1.60-3.17); Anion Gap 7.1 mmol/L (4.00-12.00); BUN/Creat Ratio 17.5 Ratio (12.00-20.00); Calcium 8.7 mg/dL (8.7-10.3); Carbon Dioxide 26.9 mmol/L (21.6-31.8); Chol/HDL Ratio 4.48; Globulin 2.8 g/dL (1.6-3.3); LDL Cholesterol,Calculated 7.4 mg/dL (0.0-131.0); Non-African American GFR(CKD) 93.7 (60.0-200.0); Potassium 4.2 mmol/L (3.5-5.5); Total Bilirubin 0.6 mg/dL (0.2-1.2); Total Protein 6.7 g/dL (6.2-8.2); VLDL Calculation 79.6 mg/dL (5.00-40.00)
[2019-10-06 21:12] LABS: Hemoglobin A1C 10.6 % (4.0-6.0)
== END | disposition home or self-care (01) ==
LOC: LABWHC1 11:58
PROVIDERS: ATTEND Internal Medicine
DX: E11.9 Type 2 diabetes mellitus without complications (principal); E78.00 Pure hypercholesterolemia, unspecified; K50.018 Crohn's disease of small intestine with other complication; F41.1 Generalized anxiety disorder; I10 Essential (primary) hypertension
CPT/HCPCS: 36415; 80053; 80061; 83036; 85025

== ENCOUNTER → 2019-10-31 | Outpatient (CLI) | payer MEDICARE | END | disposition home or self-care (01) | LOC: LABWHC1 13:24 | PROVIDERS: ATTEND Internal Medicine | DX: E11.9 Type 2 diabetes mellitus without complications (principal) | CPT/HCPCS: 36415; 82947; 84681 ==

== ENCOUNTER 2020-01-20 22:25 | Inpatient (IN) | payer MEDICARE ==
[2020-01-20 23:21] LABS: Basophils # (A) 0.1 k/uL (0-0.2); Basophils % (A) 1 %; Eosinophils # (A) 0.2 k/uL (0-0.7); Eosinophils % (A) 2 %; HCT 34.2 % (39.0-53.0); HGB 11.7 gm/dL (13.0-17.5); Lymphocytes # (A) 2.1 k/uL (1.0-4.8); Lymphocytes % (A) 30 %; MCH 34.2 pg (25.0-35.0); MCHC 34.3 g/dL (31.0-37.0); MCV 99.7 fL (80.0-100.0); Macrocytosis Slight; Mean Platelet Volume 10.2; Monocytes # (A) 0.5 k/uL (0-1.0); Monocytes % (A) 7 %; Neutrophils % (A) 58 %; Platelet Count 103 k/uL (150-450); RBC 3.43 m/uL (4.30-5.90); RDW 15.9 % (11.5-15.5); WBC 6.8 k/uL (3.8-10.6)
[2020-01-20] MEDS ORDERED: METOCLOPRAMIDE 5 MG/ML 2 ML VIAL IVP STA (23:21)
--- NOTE | 2020-01-20 23:28 | ED ---
Abdominal Pain HPI - General Chief Complaint: Abdominal Pain Stated Complaint: Chrons Flare up - Abd Pain Time Seen by Provider: 01/20/20 23:27 Source: patient Mode of arrival: ambulatory Limitations: no limitations - History of Present Illness Initial Comments: Ky is a very pleasant 64-year-old male with a history of Crohn's disease for which she follows with Dr. Wade and has been relatively well controlled for the past year. Patient presents the ER today for intractable nausea vomiting diarrhea and crampy abdominal pain. Patient reports this is identical to previous Crohn's flares. He is not been on any recent antibiotics or steroids. He's been compliant with all his home medications. He had a colonoscopy in May that was as he reports unremarkable. Patient reports multiple episodes of nonbloody nonbilious emesis and multiple episodes of watery nonbloody diarrhea today. - Related Data Home Medications Medication Instructions Recorded Confirmed Budesonide-Formot 160-4.5 Mcg 2 puff INHALATION RT-BID 11/13/13 06/27/19 [Symbicort 160-4.5 Mcg Inhaler] Tiotropium 18 Mcg/Puff [Spiriva] 1 puff INHALATION RT-DAILY 11/13/13 06/27/19 Promethazine [Phenergan] 25 mg PO Q8HR PRN 02/20/14 06/27/19 Albuterol Inhaler (Mhu) [Ventolin 2 puff INHALATION RT-Q4H PRN 02/22/17 06/27/19 Hfa Inhaler (Mhu)] Atorvastatin [Lipitor] 20 mg PO HS 02/22/17 06/27/19 Esomeprazole Magnesium [NexIUM] 40 mg PO BID 02/22/17 06/27/19 Insulin Glargine [Lantus] 20 unit SQ HS 02/22/17 06/27/19 Insulin Lispro [humaLOG Kwikpen] 4 unit SQ QAM 02/22/17 06/27/19 levETIRAcetam [Keppra] 500 mg PO QAM 02/22/17 06/27/19 levETIRAcetam [Keppra] 1,000 mg PO HS 03/10/17 06/27/19 Albuterol Nebulized [Ventolin 2.5 mg INHALATION RT-Q4H PRN 04/26/17 06/27/19 Nebulized] Insulin Lispro [humaLOG Kwikpen] 5 unit SQ W/LUNCH 04/26/17 06/27/19 Insulin Lispro [humaLOG Kwikpen] 5 unit SQ W/SUPPER 04/26/17 06/27/19 LORazepam [Ativan] 0.5 mg PO Q6HR PRN 04/26/17 06/27/19 Nitroglycerin Sl Tabs [Nitrostat] 0.4 mg SUBLINGUAL Q5M PRN 04/26/17 06/27/19 Nortriptyline [Pamelor] 10 mg PO DAILY 01/21/20 01/21/20 Allergies Allergy/AdvReac Type Severity Reaction Status Date / Time aspirin Allergy Swelling Verified 01/20/20 22:38 nalbuphine HCl [From Nubain] Allergy Vomiting Verified 01/20/20 22:38 ondansetron HCl [From Zofran] Allergy Unknown Verified 01/20/20 22:38 penicillin G Allergy Rash/Hives Verified 01/20/20 22:38 venom-wasp [Wasp Venom] Allergy Anaphylaxis Verified 01/20/20 22:38 Review of Systems ROS Statement: Those systems with pertinent positive or pertinent negative responses have been documented in the HPI. ROS Other: All systems not noted in ROS Statement are negative. Past Medical History Past Medical History: Asthma, CVA/TIA, Diabetes Mellitus, Deep Vein Thrombosis (DVT), GERD/Reflux, Osteoarthritis (OA), Skin Disorder Additional Past Medical History / Comment(s): HX OF KIDNEY STONES, CROHNS DISEASE, HX OF BLOOD CLOT RT ARM AND BEHIND RT KNEE, TIA/seizure/brain bleed 08/2016, see Dr Wright H&P, "spots of dry skin", hx anemia History of Any Multi-Drug Resistant Organisms: MRSA Date of last positivie culture/infection: 2006 MDRO Source:: nose Past Surgical History: Appendectomy, Back Surgery, Bowel Resection, Cholecystectomy, Heart Catheterization, Prostate Surgery Additional Past Surgical History / Comment(s): BOWEL RESECTION X 5, SPINAL SURGERIES X3, LEFT LOBECTOMY. lithotripsy, TURP, neck fusion Past Anesthesia/Blood Transfusion Reactions: No Reported Reaction Past Psychological History: No Psychological Hx Reported Past Alcohol Use History: None Reported Past Drug Use History: None Reported - Past Family History Mother Family Medical History: Deep Vein Thrombosis (DVT) General Exam - General Exam Comments Initial Comments: Physical Exam GENERAL: Patient is well-developed and well-nourished. Patient is nontoxic and well-hydrated and is in no distress. HENT: Normocephalic, Atraumatic. EYES: PERRL, EOMI PULMONARY: Unlabored respirations. No audible rales rhonchi or wheezing was noted. CARDIOVASCULAR: There is a regular rate and rhythm without any murmurs gallops or rubs. ABDOMEN: Multiple surgical scars SKIN: Skin is clear with no lesions or rashes and otherwise unremarkable. : Deferred NEUROLOGIC: Patient is alert and oriented x3. Moving all extremities spontaneously MUSCULOSKELETAL: Normal extremities with adequate strength and full range of motion. No lower extremity swelling or edema. No calf tenderness. PSYCHIATRIC: Normal psychiatric evaluation. Limitations: no limitations Course Vital Signs 01/20/20 01/21/20 01/21/20 22:26 01:08 01:26 Temperature 98.0 F 98.3 F Pulse Rate 105 H 65 Pulse Rate [ 98 Pulse Oximetery ] Respiratory 18 18 16 Rate Blood Pressure 222/90 160/85 Blood Pressure 178/88 [Left Arm] O2 Sat by Pulse 97 98 98 Oximetry Medical Decision Making - Medical Decision Making The patient was seen and evaluated history is obtained from the patient, labs and IV fluids were ordered Patient with an ALLERGY to Zofran will be treated with Reglan Upon reevaluation patient has persistent nausea, has persistent abdominal pain Benadryl was ordered for the nausea and Dilaudid for pain Labs are relatively unremarkable however given the patient's history a computed tomography scan was ordered CT scan with no acute findings Patient will be admitted for Crohn's flair with consult to GI - Lab Data Result diagrams: 01/20/20 23:08 01/20/20 23:08 Lab Results 01/20/20 01/20/20 Range/Units 23:08 23:08 WBC 6.8 (3.8-10.6) k/uL RBC 3.43 L (4.30-5.90) m/uL Hgb 11.7 L (13.0-17.5) gm/dL Hct 34.2 L (39.0-53.0) % MCV 99.7 (80.0-100.0) fL MCH 34.2 (25.0-35.0) pg MCHC 34.3 (31.0-37.0) g/dL RDW 15.9 H (11.5-15.5) % Plt Count 103 L (150-450) k/uL Neutrophils % 58 % Lymphocytes % 30 % Monocytes % 7 % Eosinophils % 2 % Basophils % 1 % Neutrophils # 4.0 (1.3-7.7) k/uL Lymphocytes # 2.1 (1.0-4.8) k/uL Monocytes # 0.5 (0-1.0) k/uL Eosinophils # 0.2 (0-0.7) k/uL Basophils # 0.1 (0-0.2) k/uL Macrocytosis Slight Sodium 136 L (137-145) mmol/L Potassium 3.8 (3.5-5.1) mmol/L Chloride 101 (98-107) mmol/L Carbon Dioxide 27 (22-30) mmol/L Anion Gap 8 mmol/L BUN 14 (9-20) mg/dL Creatinine 0.69 (0.66-1.25) mg/dL Est GFR (CKD-EPI)AfAm >90 (>60 ml/min/1.73 sqM) Est GFR (CKD-EPI)NonAf >90 (>60 ml/min/1.73 sqM) Glucose 151 H (74-99) mg/dL Calcium 9.0 (8.4-10.2) mg/dL Total Bilirubin 0.7 (0.2-1.3) mg/dL AST 19 (17-59) U/L ALT 16 (4-49) U/L Alkaline Phosphatase 95 (38-126) U/L Total Protein 7.2 (6.3-8.2) g/dL Albumin 4.1 (3.5-5.0) g/dL Amylase 68 (30-110) U/L Lipase 175 (23-300) U/L Disposition Clinical Impression: Crohn's disease Disposition: ADMITTED IP TO THIS HOSP Condition: Stable Is patient prescribed a controlled substance at d/c from ED?: No
[2020-01-20 23:30] LABS: ALT 16 U/L (4-49); AST 19 U/L (17-59); African American GFR (CKD) >90 (>60 ml/min/1.73 sqM); Albumin 4.1 g/dL (3.5-5.0); Alkaline Phosphatase 95 U/L (38-126); Amylase 68 U/L (30-110); Anion Gap 8 mmol/L; Blood Urea Nitrogen 14 mg/dL (9-20); Carbon Dioxide 27 mmol/L (22-30); Chloride 101 mmol/L (98-107); Glucose 151 mg/dL (74-99); Non-African American GFR(CKD) >90 (>60 ml/min/1.73 sqM); Potassium 3.8 mmol/L (3.5-5.1); Sodium 136 mmol/L (137-145); Total Bilirubin 0.7 mg/dL (0.2-1.3); Total Protein 7.2 g/dL (6.3-8.2)
--- NOTE | 2020-01-21 | XR ---
EXAMINATION TYPE: XR KUB DATE OF EXAM: 01/20/2020 COMPARISON: 04/29/2015 HISTORY: Abdominal pain TECHNIQUE: FINDINGS: 2 views upright show no sign of intestinal obstruction or pneumoperitoneum. Fecal pattern i s normal. There is 1 cm irregular calcification over the medial lower pole right kidney. This could b e in the proximal right ureter. There are clips from cholecystectomy. There is fusion surgery in the lower lumbar spine. There is L5 laminectomy. There is no evidence of a mass. IMPRESSION: Large calculus could be in the proximal right ureter. Minimal pleural reaction noted at t he lung bases.
[2020-01-21] MEDS ORDERED: SODIUM CHLORIDE 0.9% 1,000 ML IV ONE (00:04)
[2020-01-21] MEDS ORDERED: diphenhydrAMINE 50 MG/ML 1 ML VIAL IVP STA (00:04)
[2020-01-21] MEDS ORDERED: HYDROmorphone 1 MG/ML 1 ML SYRINGE IVP STA (00:04)
[2020-01-21] MEDS: HYDROmorphone 0.5 MG/0.5 ML SYRINGE IVP PRN ×7 (00:11→22:29)
[2020-01-21] MEDS: SODIUM CHLORIDE 0.9% 1,000 ML IV SCH ×3 (00:14→13:28)
--- NOTE | 2020-01-21 00:54 | CT ---
EXAMINATION TYPE: CT abdomen pelvis w con DATE OF EXAM: 01/21/2020 COMPARISON: None HISTORY: Abd. pain CT DLP: 1271.5 mGycm Automated exposure control for dose reduction was used. CONTRAST: Performed with IV Contrast, patient injected with 100 mL of Isovue 300. There is mild subsegmental atelectasis at the lung bases. Heart appears normal. There is no pericardi al effusion. There is no pleural effusion. Liver shows no focal defect. There are clips from cholecys tectomy. There is large common bile duct that measures 2.3 cm. Intrahepatic bile ducts appear normal. Spleen is intact. There is no evidence of pancreatic mass. Stomach appears intact. There is no adrenal mass. Kidneys show satisfactory contrast opacification. There is no hydronephrosi s. There is irregular 1.5 cm calculus lower pole right kidney. The ureters are not dilated. There is no retroperitoneal adenopathy. Bladder distends smoothly. There is prostatic calcification. There is no inguinal hernia. There is no free fluid in the pelvis. There are surgical clips on the splenic fle xure of the colon. There is umbilical hernia that contains small bowel. I see no incarceration. I see no evidence of a bowel obstruction. There are large bowel fluid levels extending to the descending c olon. There is posterior fusion surgery at L5-S1. There is no lumbar compression fracture. Vertebra have no rmal alignment. The bony pelvis is intact. Hip joints are intact. IMPRESSION: Previous surgery. Nonobstructing large right renal calculus. Large bowel fluid levels could relate to some mild diarrhea and ileus. Umbilical hernia. Mild scarring and subsegmental atelectasis at the lung bases.
[2020-01-21] MEDS ORDERED: NALOXONE 0.4 MG/ML 1 ML VIAL IV PRN (00:56)
[2020-01-21] MEDS ORDERED: diphenhydrAMINE 50 MG/ML 1 ML VIAL IVP PRN (00:58)
[2020-01-21 06:01] LABS: Glucose,Whole Blood 154 mg/dL (75-99)
[2020-01-21] MEDS: INSULIN ASPART (NovoLOG) 100 UNIT/ML VIAL SQ SCH ×4 (08:57→20:32)
[2020-01-21] MEDS: METOPROLOL TARTRATE 25 MG TAB PO SCH ×2 (08:57→20:26)
[2020-01-21] MEDS: PANTOPRAZOLE 40 MG/10 ML VIAL IV SCH (08:57)
[2020-01-21] MEDS: METOCLOPRAMIDE 5 MG/ML 2 ML VIAL IVP PRN (09:13)
[2020-01-21 10:20] LABS: Appearance,Urine Clear (Clear); Bilirubin,Urine Negative (Negative); Blood,Urine Negative (Negative); Color,Urine Yellow; Glucose,Urine (UA) Negative (Negative); Ketones,Urine Negative (Negative); Leukocyte Esterase,Urine Negative (Negative); Nitrite,Urine Negative (Negative); PH, Urine 5.5 (5.0-8.0); Protein,Urine Trace (Negative); Specific Gravity,Urine 1.024 (1.001-1.035); Urobilinogen,Urine <2.0 mg/dL (<2.0)
[2020-01-21 12:03] LABS: Glucose,Whole Blood 123 mg/dL (75-99)
[2020-01-21] MEDS: DICYCLOMINE 20 MG TAB PO PRN (12:21)
--- NOTE | 2020-01-21 12:29 | P.CONS ---
History of Present Illness - Reason for Consult Consult date: 01/21/20 Crohn's disease Requesting physician: Adela Lorenz - Chief Complaint Abdominal pain, diarrhea - History of Present Illness 64-year-old male with a history significant for hyperlipidemia, diabetes mellitus and Crohn's disease of the small and large bowel who presented to the hospital with a constellation of symptoms including abdominal pain, diarrhea, nausea and vomiting. The patient has a long-standing history of stricturing Crohn's disease requiring multiple surgeries in the past. Previously the patient had been taking maintained on biologic therapy with Entyvio, however this was stopped in the past due to insurance reasons and the patient has been maintained on budesonide therapy since that time. The patient was seen in 06/2019 for colonoscopy at which time he had been reporting fairly well- controlled symptoms however moderate ileitis was noted on colonoscopy with biopsies of the colon showing mild chronic colitis. The patient did not follow- up in the clinic after the procedure due to the help break of Covid-19, but was scheduled to be seen with Noreen Almodovar this upcoming week. The patient reports that she has been having symptoms of abdominal pain, diarrhea and vomiting which have been present over the past few weeks. He reports that this is worsened prior to presentation. He denies any fevers or chills. He reports that the bowel movements have been nonbloody but frequent describing multiple loose bowel movements daily with associated urgency. He also reports cramping abdominal pain predominantly in the left abdomen. Computed tomography scan performed in evaluation showed evidence of prior surgical interventions as well as a right kidney calculus and fluid in the colon suggestive of diarrhea versus ileus. Laboratory evaluation significant for WBCs 6.8, hemoglobin 11.7, platelet count 503,000, total bilirubin 0.7, alkaline phosphatase 95, AST 19, ALT 16, lipase 178 and amylase 68. Review of Systems REVIEW OF SYSTEMS: CONSTITUTIONAL: Denies any fevers, chills, weight change or fatigue. CARDIOVASCULAR: Denies any chest pain, palpitations high or low blood pressures RESPIRATORY: Denies any shortness of breath, hemoptysis or cough. GENITOURINARY: No dysuria or hematuria. MUSCULOSKELETAL: No weakness reported. SKIN: Denies any new rashes or lesions, jaundice or pallor. PSYCHIATRIC: Denies any depression or anxiety. NEUROLOGY: Denies headache, denies any new focal deficits. EARS/NOSE/THROAT: No recent hearing change, congestion, nasal discharge or sore throat. EYES: No pain in eyes, discharge or change in vision. GASTROINTESTINAL: As per HPI. Past Medical History Past Medical History: Asthma, CVA/TIA, Diabetes Mellitus, Deep Vein Thrombosis (DVT), GERD/Reflux, Osteoarthritis (OA), Skin Disorder Additional Past Medical History / Comment(s): HX OF KIDNEY STONES, CROHNS DISEASE, HX OF BLOOD CLOT RT ARM AND BEHIND RT KNEE, TIA/seizure/brain bleed 08/2016, see Dr Wright H&P, "spots of dry skin", hx anemia History of Any Multi-Drug Resistant Organisms: MRSA Year Discovered:: 2006 MDRO Source:: nose Past Surgical History: Appendectomy, Back Surgery, Bowel Resection, Cholecystectomy, Heart Catheterization, Prostate Surgery Additional Past Surgical History / Comment(s): BOWEL RESECTION X 5, SPINAL SURGERIES X3, LEFT LOBECTOMY. lithotripsy, TURP, neck fusion Past Anesthesia/Blood Transfusion Reactions: No Reported Reaction Past Psychological History: No Psychological Hx Reported Past Alcohol Use History: None Reported Past Drug Use History: None Reported - Past Family History Mother Family Medical History: Deep Vein Thrombosis (DVT) Medications and Allergies Home Medications Medication Instructions Recorded Confirmed Type Atorvastatin [Lipitor] 20 mg PO HS 02/22/17 01/21/20 History Insulin Lispro [humaLOG Kwikpen] 4 unit SQ W/BRKFST 02/22/17 01/21/20 History levETIRAcetam [Keppra] 500 mg PO QAM 02/22/17 01/21/20 History levETIRAcetam [Keppra] 1,000 mg PO HS 03/10/17 01/21/20 History Albuterol Nebulized [Ventolin 2.5 mg INHALATION RT-Q4H PRN 04/26/17 01/21/20 History Nebulized] Insulin Lispro [humaLOG Kwikpen] 5 unit SQ W/LUNCH 04/26/17 01/21/20 History Insulin Lispro [humaLOG Kwikpen] 5 unit SQ W/SUPPER 04/26/17 01/21/20 History LORazepam [Ativan] 0.5 mg PO Q6HR PRN 04/26/17 01/21/20 History Nitroglycerin Sl Tabs [Nitrostat] 0.4 mg SUBLINGUAL Q5M PRN 04/26/17 01/21/20 History Acetaminophen Tab [Tylenol] 1,000 - 1,500 mg PO DAILY PRN 01/21/20 01/21/20 History Albuterol Sulfate [Albuterol 2 puff INHALATION RT-Q4H PRN 01/21/20 01/21/20 History Sulfate Hfa] Baclofen [Lioresal] 20 mg PO BID-W/MEALS 01/21/20 01/21/20 History Budesonide [Budesonide EC] 3 mg PO TID 01/21/20 01/21/20 History Insulin Glargine,Hum.rec.anlog 20 units SQ QAM 01/21/20 01/21/20 History [Lantus Solostar] Insulin Glargine,Hum.rec.anlog 35 units SQ HS 01/21/20 01/21/20 History [Lantus Solostar] Insulin Lispro [humaLOG Kwikpen] See Protocol SQ TID-W/MEALS 01/21/20 01/21/20 History Naproxen [Naprosyn] 500 mg PO BID-W/MEALS 01/21/20 01/21/20 History Nortriptyline [Pamelor] 10 mg PO BID 01/21/20 01/21/20 History Zolpidem [Ambien] 10 mg PO HS PRN 01/21/20 01/21/20 History Allergies Allergy/AdvReac Type Severity Reaction Status Date / Time aspirin Allergy Swelling Verified 01/21/20 09:37 nalbuphine HCl [From Nubain] Allergy Vomiting Verified 01/21/20 09:37 ondansetron HCl [From Zofran] Allergy Unknown Verified 01/21/20 09:37 penicillin G Allergy Rash/Hives Verified 01/21/20 09:37 venom-wasp [Wasp Venom] Allergy Anaphylaxis Verified 01/21/20 09:37 Physical Exam Vitals: Vital Signs Temp Pulse Pulse Resp BP BP Pulse Ox 01/21/20 08:59 168/73 01/21/20 08:54 98.0 F 74 18 196/90 96 01/21/20 02:15 98 16 01/21/20 01:26 98.3 F 98 16 178/88 98 01/21/20 01:08 65 18 160/85 98 01/20/20 22:26 98.0 F 105 H 18 222/90 97 Intake and Output 01/20/20 01/21/20 01/21/20 22:59 06:59 14:59 Other: # Voids 1 Weight 96.162 kg 96.162 kg On physical examination, patient appears comfortable in no apparent distress. HEAD: Normocephalic, atraumatic. EYES: No scleral icterus. No conjunctival injection. MOUTH: No lesions, tongue midline. NECK: Trachea midline, no gross abnormalities. CHEST: Clear to auscultation with no wheezing or rhonchi appreciated. HEART: Regular rate and rhythm. ABDOMEN: Soft, mildly tender to palpation predominantly in the lower abdomen and left lower quadrant. Bowel sounds are positive. No organomegaly. No guarding or rigidity. EXTREMITIES: No pedal edema. SKIN: No rashes, no jaundice. NEUROLOGIC: Alert and oriented x3. No focal deficits. Results CBC & Chem 7: 01/20/20 23:08 01/20/20 23:08 Labs: Abnormal Lab Results - Last 24 Hours (Table) 01/20/20 01/20/20 01/21/20 Range/Units 23:08 23:08 05:56 RBC 3.43 L (4.30-5.90) m/uL Hgb 11.7 L (13.0-17.5) gm/dL Hct 34.2 L (39.0-53.0) % RDW 15.9 H (11.5-15.5) % Plt Count 103 L (150-450) k/uL Sodium 136 L (137-145) mmol/L Glucose 151 H (74-99) mg/dL POC Glucose (mg/dL) 154 H (75-99) mg/dL CT scan - abdomen: report reviewed (Computed tomography scan performed in evaluation showed evidence of prior surgical interventions as well as a right kidney calculus and fluid in the colon suggestive of diarrhea versus ileus. ) Assessment and Plan (1) Diarrhea Narrative/Plan: 64-year-old male with multiple medical comorbidities including a long-standing history of complicated Crohn's disease of the small and large bowel requiring surgery in the past who presented with complaints of abdominal pain, diarrhea and nausea and vomiting. The patient reports 5 surgeries in the past for stricturing disease. Previously he was on biologic therapy this was stopped due to insurance reasons and he is currently maintained on budesonide. His symptoms have been worsening over the past few weeks with multiple loose watery nonbloody bowel movements daily with associated abdominal pain predominantly in the left lower quadrant. No fevers, chills, right murmurs. He denies any recent change in medications or antibiotics. He had been seen in June 2019 at which time colonoscopy was significant for moderate ileitis with biopsy showing mild chronic colitis on random biopsy of the colon. At that time patient was advised to follow up in the clinic for discussion on escalation of medical therapy but has not done so to the outbreak of Patel virus. Patient feels his symptoms are related to exacerbation of underlying Crohn's disease, we'll rule out infection with Clostridium difficile colitis and patient will need follow-up after discharge in the GI clinic. Current Visit: Yes Status: Acute Code(s): R19.7 - DIARRHEA, UNSPECIFIED SNOMED Code(s): 06181000 (2) Abdominal pain Current Visit: Yes Status: Acute Code(s): R10.9 - UNSPECIFIED ABDOMINAL PAIN SNOMED Code(s): 09611177 (3) Crohn's disease Current Visit: Yes Status: Acute Code(s): K50.90 - CROHN'S DISEASE, UNSPECIF IED, WITHOUT COMPLICATIONS SNOMED Code(s): 99579970 Plan: Supportive care Clear liquid diet Testing for clostridium difficile toxin ordered Bentyl as needed for abdominal cramping ESR and CRP ordered If stool testing is negative for C. diff infection okay to initiate Solu-Medrol 20 mg every 8 hours Follow up with GI clinic for discussion on possible escalation of medical therapy after discharge Thank you for allowing us to participate in the care of the patient
[2020-01-21] MEDS ORDERED: ALBUTEROL HFA INHALER INHALATION PRN (12:32)
[2020-01-21] MEDS ORDERED: NITROGLYCERIN SL TABS 0.4 MG TAB SUBLINGUAL PRN (12:32)
[2020-01-21] MEDS ORDERED: ZOLPIDEM 10 MG TAB PO PRN (12:32)
[2020-01-21] MEDS ORDERED: ACETAMINOPHEN TAB 500 MG TAB PO PRN (12:32)
--- NOTE | 2020-01-21 13:22 | P.HPIM ---
History of Present Illness 64-year-old pleasant male came in with complains of left mid abdominal pain mostly crampy in nature and also burning sensation started about 3 days ago moderate severity. Patient has associated diarrhea patient usually has does have diarrhea from his Crohn's disease his diarrhea is worse than his baseline his baseline is about 5 stools per day. Patient will also complaining of nausea vomiting. Patient does have history of Crohn's colitis at one point of time patient was on biologic agent subsequently was switched to oral budesonide because of his insurance issues because of Coumadin 19 was unable to follow. And gastroneurology clinic CT of the abdomen was done which showed mild and nonobstructive right renal calculi. CV for testing was ordered and if that is negative patient will be started on steroids for possible Crohn's exacerbation ESR although is within normal limits. Patient was on antibiotics for about 2-3 days after surgery Review of Systems REVIEW OF SYSTEMS: CONSTITUTIONAL: No fever, no malaise, no fatigue. HEENT: No recent visual problems or hearing problems. Denied any sore throat. CARDIOVASCULAR: No chest pain, orthopnea, PND, no palpitations, no syncope. PULMONARY: No shortness of breath, no cough, no hemoptysis. GASTROINTESTINAL: As mentioned in HPI NEUROLOGICAL: No headaches, no weakness, no numbness. HEMATOLOGICAL: Denies any bleeding or petechiae. GENITOURINARY: Denies any burning micturition, frequency, or urgency. MUSCULOSKELETAL/RHEUMATOLOGICAL: Denies any joint pain, swelling, or any muscle pain. ENDOCRINE: Denies any polyuria or polydipsia. The rest of the 14-point review of systems is negative. Past Medical History Past Medical History: Asthma, CVA/TIA, Diabetes Mellitus, Deep Vein Thrombosis (DVT), GERD/Reflux, Osteoarthritis (OA), Skin Disorder Additional Past Medical History / Comment(s): HX OF KIDNEY STONES, CROHNS DISEASE, HX OF BLOOD CLOT RT ARM AND BEHIND RT KNEE, TIA/seizure/brain bleed 08/2016, see Dr Wright H&P, "spots of dry skin", hx anemia History of Any Multi-Drug Resistant Organisms: MRSA Date of last positivie culture/infection: 2006 MDRO Source:: nose Past Surgical History: Appendectomy, Back Surgery, Bowel Resection, Cholecystectomy, Heart Catheterization, Prostate Surgery Additional Past Surgical History / Comment(s): BOWEL RESECTION X 5, SPINAL SURGERIES X3, LEFT LOBECTOMY. lithotripsy, TURP, neck fusion Past Anesthesia/Blood Transfusion Reactions: No Reported Reaction Past Psychological History: No Psychological Hx Reported Past Alcohol Use History: None Reported Past Drug Use History: None Reported - Past Family History Mother Family Medical History: Deep Vein Thrombosis (DVT) Medications and Allergies Home Medications Medication Instructions Recorded Confirmed Type Atorvastatin [Lipitor] 20 mg PO HS 02/22/17 01/21/20 History Insulin Lispro [humaLOG Kwikpen] 4 unit SQ W/BRKFST 02/22/17 01/21/20 History levETIRAcetam [Keppra] 500 mg PO QAM 02/22/17 01/21/20 History levETIRAcetam [Keppra] 1,000 mg PO HS 03/10/17 01/21/20 History Albuterol Nebulized [Ventolin 2.5 mg INHALATION RT-Q4H PRN 04/26/17 01/21/20 History Nebulized] Insulin Lispro [humaLOG Kwikpen] 5 unit SQ W/LUNCH 04/26/17 01/21/20 History Insulin Lispro [humaLOG Kwikpen] 5 unit SQ W/SUPPER 04/26/17 01/21/20 History LORazepam [Ativan] 0.5 mg PO Q6HR PRN 04/26/17 01/21/20 History Nitroglycerin Sl Tabs [Nitrostat] 0.4 mg SUBLINGUAL Q5M PRN 04/26/17 01/21/20 History Acetaminophen Tab [Tylenol] 1,000 - 1,500 mg PO DAILY PRN 01/21/20 01/21/20 History Albuterol Sulfate [Albuterol 2 puff INHALATION RT-Q4H PRN 01/21/20 01/21/20 History Sulfate Hfa] Baclofen [Lioresal] 20 mg PO BID-W/MEALS 01/21/20 01/21/20 History Budesonide [Budesonide EC] 3 mg PO TID 01/21/20 01/21/20 History Insulin Glargine,Hum.rec.anlog 20 units SQ QAM 01/21/20 01/21/20 History [Lantus Solostar] Insulin Glargine,Hum.rec.anlog 35 units SQ HS 01/21/20 01/21/20 History [Lantus Solostar] Insulin Lispro [humaLOG Kwikpen] See Protocol SQ TID-W/MEALS 01/21/20 01/21/20 History Naproxen [Naprosyn] 500 mg PO BID-W/MEALS 01/21/20 01/21/20 History Nortriptyline [Pamelor] 10 mg PO BID 01/21/20 01/21/20 History Zolpidem [Ambien] 10 mg PO HS PRN 01/21/20 01/21/20 History Allergies Allergy/AdvReac Type Severity Reaction Status Date / Time aspirin Allergy Swelling Verified 01/21/20 09:37 nalbuphine HCl [From Nubain] Allergy Vomiting Verified 01/21/20 09:37 ondansetron HCl [From Zofran] Allergy Unknown Verified 01/21/20 09:37 penicillin G Allergy Rash/Hives Verified 01/21/20 09:37 venom-wasp [Wasp Venom] Allergy Anaphylaxis Verified 01/21/20 09:37 Physical Exam Vitals: Vital Signs Temp Pulse Pulse Resp BP BP Pulse Ox 01/21/20 08:59 168/73 01/21/20 08:54 98.0 F 74 18 196/90 96 01/21/20 02:15 98 16 01/21/20 01:26 98.3 F 98 16 178/88 98 01/21/20 01:08 65 18 160/85 98 01/20/20 22:26 98.0 F 105 H 18 222/90 97 Intake and Output 01/20/20 01/21/20 01/21/20 22:59 06:59 14:59 Other: # Voids 1 1 Weight 96.162 kg 96.162 kg PHYSICAL EXAMINATION: GENERAL: The patient is alert and oriented x3, not in any acute distress. Well developed, well nourished. HEENT: Pupils are round and equally reacting to light. EOMI. No scleral icterus. No conjunctival pallor. Normocephalic, atraumatic. No pharyngeal erythema. No thyromegaly. CARDIOVASCULAR: S1 and S2 present. No murmurs, rubs, or gallops. PULMONARY: Chest is clear to auscultation, no wheezing or crackles. ABDOMEN: Soft, mild tenderness in the left mid and lower abdomen nondistended, normoactive bowel sounds. No palpable organomegaly. MUSCULOSKELETAL: No joint swelling or deformity. EXTREMITIES: No cyanosis, clubbing, or pedal edema. NEUROLOGICAL: Gross neurological examination did not reveal any focal deficits. SKIN: No rashes. Results CBC & Chem 7: 01/20/20 23:08 01/20/20 23:08 Labs: Abnormal Lab Results - Last 24 Hours (Table) 01/20/20 01/20/20 01/21/20 Range/Units 23:08 23:08 05:56 RBC 3.43 L (4.30-5.90) m/uL Hgb 11.7 L (13.0-17.5) gm/dL Hct 34.2 L (39.0-53.0) % RDW 15.9 H (11.5-15.5) % Plt Count 103 L (150-450) k/uL Sodium 136 L (137-145) mmol/L Glucose 151 H (74-99) mg/dL POC Glucose (mg/dL) 154 H (75-99) mg/dL Urine Protein (Negative) 01/21/20 01/21/20 Range/Units 10:15 12:02 RBC (4.30-5.90) m/uL Hgb (13.0-17.5) gm/dL Hct (39.0-53.0) % RDW (11.5-15.5) % Plt Count (150-450) k/uL Sodium (137-145) mmol/L Glucose (74-99) mg/dL POC Glucose (mg/dL) 123 H (75-99) mg/dL Urine Protein Trace H (Negative) Thrombosis Risk Factor Assmnt - Choose All That Apply Any of the Below Risk Factors Present?: Yes Each Factor Represents 1 point: Obesity (BMI >25) Other Risk Factors: Yes Each Risk Factor Represents 3 Points: History of DVT/PE Other congenital or acquired thrombophilia - If yes, enter type in comment: No Thrombosis Risk Factor Assessment Total Risk Factor Score: 4 Thrombosis Risk Factor Assessment Level: Moderate Risk Assessment and Plan Plan: - possibility of Crohn's exacerbation: C. diff will be ruled out after which patient will be started on systemic steroids for possible Crohn's. Patient will be continued on clear liquid diet -Asthma without any acute exacerbation -History of DVT in the past and patient is presently not on anticoagulation Hypertension diabetes mellitus, type II: Patient blood sugars are within normal limits patient is not being started on his regular diet because of which I'll use only one third of his Lantus along with sliding scale -Hyperlipidemia Gastroesophageal reflux disease: Patient is presently on Protonix
[2020-01-21] MEDS: lisinopriL 10 MG TAB PO SCH (13:27)
[2020-01-21 17:01] LABS: Glucose,Whole Blood 125 mg/dL (75-99)
[2020-01-21] MEDS: BACLOFEN 10 MG TAB PO SCH (17:26)
[2020-01-21] MEDS: ALBUTEROL NEBULIZED 2.5 MG/3 ML INHALATION PRN (20:00)
[2020-01-21] MEDS: levETIRAcetam 500 MG TAB PO SCH (20:26)
[2020-01-21] MEDS: ATORVASTATIN 20 MG TAB PO SCH (20:26)
[2020-01-21 20:30] LABS: Glucose,Whole Blood 136 mg/dL (75-99)
[2020-01-21] MEDS: NORTRIPTYLINE 10 MG CAP PO SCH (22:26)
[2020-01-22] MEDS: METOCLOPRAMIDE 5 MG/ML 2 ML VIAL IVP PRN ×2 (00:54→07:49)
[2020-01-22] MEDS: HYDROmorphone 0.5 MG/0.5 ML SYRINGE IVP PRN ×8 (00:54→23:13)
[2020-01-22] MEDS: SODIUM CHLORIDE 0.9% 1,000 ML IV SCH ×3 (01:01→14:10)
[2020-01-22 06:43] LABS: Glucose,Whole Blood 137 mg/dL (75-99)
[2020-01-22] MEDS: INSULIN ASPART (NovoLOG) 100 UNIT/ML VIAL SQ SCH ×4 (07:52→21:00)
[2020-01-22] MEDS: INSULIN DETEMIR (LEVEMIR) 100 UNIT/ML SYR SQ SCH (07:52)
[2020-01-22 07:56] LABS: HCT 32.7 % (39.0-53.0); MCHC 33.7 g/dL (31.0-37.0); MCV 100.9 fL (80.0-100.0); Macrocytosis Slight; Mean Platelet Volume 9.2; Platelet Count 130 k/uL (150-450); RBC 3.24 m/uL (4.30-5.90); RDW 15.9 % (11.5-15.5); WBC 6.8 k/uL (3.8-10.6)
[2020-01-22 08:12] LABS: African American GFR (CKD) >90 (>60 ml/min/1.73 sqM); Anion Gap 4 mmol/L; Blood Urea Nitrogen 9 mg/dL (9-20); Calcium 7.8 mg/dL (8.4-10.2); Carbon Dioxide 31 mmol/L (22-30); Chloride 100 mmol/L (98-107); Glucose 132 mg/dL (74-99); Non-African American GFR(CKD) >90 (>60 ml/min/1.73 sqM); Potassium 3.5 mmol/L (3.5-5.1); Sodium 135 mmol/L (137-145)
[2020-01-22] MEDS: NORTRIPTYLINE 10 MG CAP PO SCH ×2 (08:19→20:15)
[2020-01-22] MEDS: ENOXAPARIN 40 MG/0.4 ML SYRINGE SQ SCH (08:20)
[2020-01-22] MEDS: PANTOPRAZOLE 40 MG/10 ML VIAL IV SCH (08:20)
[2020-01-22] MEDS: METOPROLOL TARTRATE 25 MG TAB PO SCH ×2 (08:21→20:15)
[2020-01-22] MEDS: BACLOFEN 10 MG TAB PO SCH ×2 (08:21→17:06)
[2020-01-22] MEDS: levETIRAcetam 500 MG TAB PO SCH ×2 (08:21→20:15)
[2020-01-22] MEDS: lisinopriL 10 MG TAB PO SCH (08:21)
[2020-01-22] MEDS: methylPREDNISolone SOD SUCCI 40 MG/ML 1 ML VIAL IV SCH ×3 (09:25→23:47)
[2020-01-22 11:43] LABS: Glucose,Whole Blood 169 mg/dL (75-99)
--- NOTE | 2020-01-22 13:12 | P.PN ---
Subjective Progress Note Date: 01/22/20 Principal diagnosis: Crohns exacerbation This is a 64-year-old male with a history significant for Crohn's disease of the small and large bowel presented to the hospital with constellation of symptoms including abdominal pain, diarrhea, nausea and vomiting. He states he was antonio gnosed with Crohn's disease the and has had 6 surgeries in the past related to his Crohn disease and strictures. Today he states he has had about 3 loose nonbloody bowel movements, some left upper quadrant abdominal pain, and nausea. He is tolerating a clear liquid diet, and had no acute changes through the night. His Clostridium difficile testing came back negative. Objective - Vital Signs Vital signs: Vital Signs Temp 98.1 F 01/22/20 07:34 Pulse 72 01/22/20 07:34 Resp 18 01/22/20 07:34 BP 155/85 01/22/20 07:34 Pulse Ox 97 01/22/20 07:34 Intake & Output 01/21/20 01/22/20 01/22/20 18:59 06:59 18:59 Intake Total 100 2120 Balance 100 2120 Intake: Intake, IV Titration 100 1600 Amount Sodium Chloride 0.9% 1, 100 1600 000 ml @ 100 mls/hr IV . Q10H [facility] Rx#:[id number] Oral 520 Other: Voiding Method Toilet # Voids 3 3 1 # Bowel Movements 3 1 - Exam General appearance: The patient is alert, oriented, in no acute distress. HET: Head is normocephalic and atraumatic. Conjunctiva pink. Sclera and icteric. Neck: Supple without lymphadenopathy. Abdomen: Soft, mild left upper and lower quadrant tenderness, nondistended with bowel sounds. No guarding or rigidity. Extremities: Normal skin color and turgor. No pedal edema Neurological: No focal deficits. Alert and oriented 3. - Labs CBC & Chem 7: 01/22/20 07:25 01/22/20 07:25 Labs: Abnormal Lab Results - Last 24 Hours (Table) 01/21/20 01/21/20 01/22/20 Range/Units 16:59 20:28 06:41 RBC (4.30-5.90) m/uL Hgb (13.0-17.5) gm/dL Hct (39.0-53.0) % MCV (80.0-100.0) fL RDW (11.5-15.5) % Plt Count (150-450) k/uL Sodium (137-145) mmol/L Carbon Dioxide (22-30) mmol/L Glucose (74-99) mg/dL POC Glucose (mg/dL) 125 H 136 H 137 H (75-99) mg/dL Calcium (8.4-10.2) mg/dL 01/22/20 01/22/20 01/22/20 Range/Units 07:25 07:25 11:42 RBC 3.24 L (4.30-5.90) m/uL Hgb 11.0 L (13.0-17.5) gm/dL Hct 32.7 L (39.0-53.0) % MCV 100.9 H (80.0-100.0) fL RDW 15.9 H (11.5-15.5) % Plt Count 130 L (150-450) k/uL Sodium 135 L (137-145) mmol/L Carbon Dioxide 31 H (22-30) mmol/L Glucose 132 H (74-99) mg/dL POC Glucose (mg/dL) 169 H (75-99) mg/dL Calcium 7.8 L (8.4-10.2) mg/dL Assessment and Plan (1) Diarrhea Narrative/Plan: 64-year-old male with multiple medical comorbidities including a long-standing history of complicated Crohn's disease of the small and large bowel requiring surgery in the past who presented with complaints of abdominal pain, diarrhea and nausea and vomiting. The patient reports 5 surgeries in the past for stricturing disease. Previously he was on biologic therapy this was stopped due to insurance reasons and he is currently maintained on budesonide. His symptoms have been worsening over the past few weeks with multiple loose watery nonbloody bowel movements daily with associated abdominal pain predominantly in the left lower quadrant. No fevers, chills, right murmurs. He denies any recent change in medications or antibiotics. He had been seen in June 2019 at which time colonoscopy was significant for moderate ileitis with biopsy showing mild chronic colitis on random biopsy of the colon. At that time patient was advised to follow up in the clinic for discussion on escalation of medical therapy but has not done so to the outbreak of Patel virus. Patient feels his symptoms are related to exacerbation of underlying Crohn's disease, Clostridium difficile colitis has been ruled out, the patient is noted on Solu-Medrol 20 mg every 8 hours and patient will need follow-up after discharge in the GI clinic. Current Visit: Yes Status: Acute Code(s): R19.7 - DIARRHEA, UNSPECIFIED SNOMED Code(s): 97868448 (2) Abdominal pain Current Visit: Yes Status: Acute Code(s): R10.9 - UNSPECIFIED ABDOMINAL PAIN SNOMED Code(s): 16780306 (3) Crohn's disease Current Visit: Yes Status: Acute Code(s): K50.90 - CROHN'S DISEASE, UNSPECIFIED, WITHOUT COMPLICATIONS SNOMED Code(s): 52812831 Plan: Supportive care Continue with Clear liquid diet, if symptoms improved will advance to full liquid diet in the morning Testing for clostridium difficile toxin negative Bentyl as needed for abdominal cramping ESR and CRP ordered Solu-Medrol 20 mg IV every 8 hours will transition to oral prednisone at time of discharge Follow up with GI clinic for discussion on further medical therapy after discharge Thank you for allowing us to participate in the care of the patient The impression and plan of care has been dictated as directed. Dr. Radha Wade I performed a history and examination of this patient, discussed the same with the dictator. I agree with the dictator's note ,documented as a scribe. Any additional findings or plans will be noted.
--- NOTE | 2020-01-22 13:17 | P.PN ---
Subjective Patient is admitted for possible Crohn's disease C. diff colitis was ruled out patient was started on IV antibiotics patient still has significant abdominal pain. Constitutional: Denied any fatigue denied any fever. Cardio vascular: denied any chest pain, palpitations Gastrointestinal as mentioned in HPI Pulmonary: Denied any shortness of breath cough Neurologic denied any new focal deficits All inpatient medications were reviewed and appropriate changes in these medications as dictated in the interval history and assessment and plan. Objective - Vital Signs Vital signs: Vital Signs Temp 98.1 F 01/22/20 07:34 Pulse 72 01/22/20 07:34 Resp 18 01/22/20 07:34 BP 155/85 01/22/20 07:34 Pulse Ox 97 01/22/20 07:34 Intake & Output 01/21/20 01/22/20 01/22/20 18:59 06:59 18:59 Intake Total 100 2120 2380 Balance 100 2120 2380 Intake: Intake, IV Titration 100 1600 800 Amount Sodium Chloride 0.9% 1, 100 1600 800 000 ml @ 100 mls/hr IV . Q10H [facility] Rx#:[id number] Oral 520 1580 Other: Voiding Method Toilet # Voids 3 3 3 # Bowel Movements 3 1 1 - Exam PHYSICAL EXAMINATION: GENERAL: The patient is alert and oriented x3, not in any acute distress. Well developed, well nourished. HEENT: Pupils are round and equally reacting to light. EOMI. No scleral icterus. No conjunctival pallor. Normocephalic, atraumatic. No pharyngeal erythema. No thyromegaly. CARDIOVASCULAR: S1 and S2 present. No murmurs, rubs, or gallops. PULMONARY: Chest is clear to auscultation, no wheezing or crackles. ABDOMEN: Soft, mild tenderness in the left mid and lower abdomen nondistended, normoactive bowel sounds. No palpable organomegaly. MUSCULOSKELETAL: No joint swelling or deformity. EXTREMITIES: No cyanosis, clubbing, or pedal edema. NEUROLOGICAL: Gross neurological examination did not reveal any focal deficits. SKIN: No rashes. - Labs CBC & Chem 7: 01/22/20 07:25 01/22/20 07:25 Labs: Abnormal Lab Results - Last 24 Hours (Table) 01/21/20 01/21/20 01/22/20 Range/Units 16:59 20:28 06:41 RBC (4.30-5.90) m/uL Hgb (13.0-17.5) gm/dL Hct (39.0-53.0) % MCV (80.0-100.0) fL RDW (11.5-15.5) % Plt Count (150-450) k/uL Sodium (137-145) mmol/L Carbon Dioxide (22-30) mmol/L Glucose (74-99) mg/dL POC Glucose (mg/dL) 125 H 136 H 137 H (75-99) mg/dL Calcium (8.4-10.2) mg/dL 01/22/20 01/22/20 01/22/20 Range/Units 07:25 07:25 11:42 RBC 3.24 L (4.30-5.90) m/uL Hgb 11.0 L (13.0-17.5) gm/dL Hct 32.7 L (39.0-53.0) % MCV 100.9 H (80.0-100.0) fL RDW 15.9 H (11.5-15.5) % Plt Count 130 L (150-450) k/uL Sodium 135 L (137-145) mmol/L Carbon Dioxide 31 H (22-30) mmol/L Glucose 132 H (74-99) mg/dL POC Glucose (mg/dL) 169 H (75-99) mg/dL Calcium 7.8 L (8.4-10.2) mg/dL Assessment and Plan Plan: - possibility of Crohn's exacerbation: C. diff was ruled out after which patient was started on systemic steroids for possible Crohn's. Patient will be continued on clear liquid diet -Asthma without any acute exacerbation -History of DVT in the past and patient is presently not on anticoagulation Hypertension diabetes mellitus, type II: Patient blood sugars are within normal limits patie nt is not being started on his regular diet because of which I'll use only one third of his Lantus along with sliding scale -Hyperlipidemia Gastroesophageal reflux disease: Patient is presently on Protonix
[2020-01-22] MEDS: DICYCLOMINE 20 MG TAB PO PRN (14:29)
[2020-01-22 16:57] LABS: Glucose,Whole Blood 210 mg/dL (75-99)
[2020-01-22] MEDS: ALBUTEROL NEBULIZED 2.5 MG/3 ML INHALATION PRN (19:59)
[2020-01-22 20:15] LABS: Glucose,Whole Blood 236 mg/dL (75-99)
[2020-01-22] MEDS: ATORVASTATIN 20 MG TAB PO SCH (20:15)
[2020-01-22] MEDS ORDERED: LEVOFLOXACIN 500MG-D5W PMX 500 MG in DEXTROSE/WATER 1 100ML.BAG IVPB SCH (21:00)
[2020-01-22] MEDS ORDERED: ZOLPIDEM 5 MG TAB PO PRN (23:21)
[2020-01-23] MEDS: HYDROmorphone 0.5 MG/0.5 ML SYRINGE IVP PRN ×5 (03:14→17:14)
[2020-01-23 06:26] LABS: Glucose,Whole Blood 220 mg/dL (75-99)
[2020-01-23 08:07] VITALS: RESP 14
[2020-01-23] MEDS: ENOXAPARIN 40 MG/0.4 ML SYRINGE SQ SCH (08:07)
[2020-01-23] MEDS: INSULIN DETEMIR (LEVEMIR) 100 UNIT/ML SYR SQ SCH (08:07)
[2020-01-23] MEDS: SODIUM CHLORIDE 0.9% 1,000 ML IV SCH ×2 (08:07→17:15)
[2020-01-23] MEDS: lisinopriL 10 MG TAB PO SCH (08:08)
[2020-01-23] MEDS: levETIRAcetam 500 MG TAB PO SCH (08:08)
[2020-01-23] MEDS: methylPREDNISolone SOD SUCCI 40 MG/ML 1 ML VIAL IV SCH ×2 (08:08→15:29)
[2020-01-23] MEDS: METOPROLOL TARTRATE 25 MG TAB PO SCH (08:08)
[2020-01-23] MEDS: BACLOFEN 10 MG TAB PO SCH ×2 (08:08→17:14)
[2020-01-23] MEDS: NORTRIPTYLINE 10 MG CAP PO SCH (08:08)
[2020-01-23] MEDS: INSULIN ASPART (NovoLOG) 100 UNIT/ML VIAL SQ SCH ×3 (08:18→17:14)
[2020-01-23] MEDS ORDERED: PANTOPRAZOLE 40 MG TABLET PO SCH (09:00)
--- NOTE | 2020-01-23 11:50 | P.PN ---
Subjective Progress Note Date: 01/23/20 Principal diagnosis: Crohns exacerbation The patient was seen and examined at the bedside. Patient states he has no more nausea or vomiting. His abdominal pain has improved. He is however having approximately 3 episodes of nonbloody diarrhea daily.he has tolerated his clear liquid diet and has been upgraded to a full liquid diet. He denies any fevers or chills. Objective - Vital Signs Vital signs: Vital Signs Temp 97.3 F L 01/23/20 08:06 Pulse 74 01/23/20 08:06 Resp 14 01/23/20 08:06 BP 146/77 01/23/20 08:06 Pulse Ox 96 01/23/20 08:06 Intake & Output 01/22/20 01/23/20 01/23/20 18:59 06:59 18:59 Intake Total 2380 Balance 2380 Intake: Intake, IV Titration 800 Amount Sodium Chloride 0.9% 1, 800 000 ml @ 100 mls/hr IV . Q10H [facility] Rx#:[id number] Oral 1580 Other: Voiding Method Toilet Toilet Toilet # Voids 3 1 # Bowel Movements 1 - Exam General appearance: The patient is alert, oriented, in no acute distress. HET: Head is normocephalic and atraumatic. Conjunctiva pink. Sclera and icteric. Neck: Supple without lymphadenopathy. Abdomen: Soft, mild left upper and lower quadrant tenderness improved, nondistended with bowel sounds. No guarding or rigidity. Extremities: Normal skin color and turgor. No pedal edema Neurological: No focal deficits. Alert and oriented 3. - Labs CBC & Chem 7: 01/22/20 07:25 01/22/20 07:25 Labs: Abnormal Lab Results - Last 24 Hours (Table) 01/22/20 01/22/20 01/23/20 Range/Units 16:55 20:14 06:24 POC Glucose (mg/dL) 210 H 236 H 220 H (75-99) mg/dL Assessment and Plan (1) Diarrhea Narrative/Plan: 64-year-old male with multiple medical comorbidities including a long-standing history of complicated Crohn's disease of the small and large bowel requiring surgery in the past who presented with complaints of abdominal pain, diarrhea and nausea and vomiting. The patient reports 5 surgeries in the past for stricturing disease. Previously he was on biologic therapy this was stopped due to insurance reasons and he is currently maintained on budesonide. His symptoms have been worsening over the past few weeks with multiple loose watery nonbloody bowel movements daily with associated abdominal pain predominantly in the left lower quadrant. No fevers, chills, right murmurs. He denies any recent change in medications or antibiotics. He had been seen in June 2019 at which time colonoscopy was significant for moderate ileitis with biopsy showing mild chronic colitis on random biopsy of the colon. At that time patient was advised to follow up in the clinic for discussion on escalation of medical therapy but has not done so to the outbreak of Patel virus. Patient feels his symptoms are related to exacerbation of underlying Crohn's disease, Clostridium difficile colitis has been ruled out, the patient is noted on Solu-Medrol 20 mg every 8 hours and patient will need follow-up after discharge in the GI clinic. Current Visit: Yes Status: Acute Code(s): R19.7 - DIARRHEA, UNSPECIFIED SNOMED Code(s): 02609454 (2) Abdominal pain Current Visit: Yes Status: Acute Code(s): R10.9 - UNSPECIFIED ABDOMINAL PAIN SNOMED Code(s): 75624815 (3) Crohn's disease Current Visit: Yes Status: Acute Code(s): K50.90 - CROHN'S DISEASE, UNSPECIFIED, WITHOUT COMPLICATIONS SNOMED Code(s): 43128555 Plan: Supportive care advanced to a full liquid diet, if tolerates lunch may advance to a low fiber for dinner Testing for clostridium difficile toxin negative Bentyl as needed for abdominal cramping ESR and CRP ordered Solu-Medrol 20 mg IV every 8 hours will transition to oral prednisone at time of discharge Follow up with GI clinic for discussion on further medical therapy after discharge Thank you for allowing us to participate in the care of the patient The impression and plan of care has been dictated as directed. Dr. Radha Wade I performed a history and examination of this patient, discussed the same with the dictator. I agree with the dictator's note ,documented as a scribe. Any additional findings or plans will be noted.
[2020-01-23 11:58] LABS: Glucose,Whole Blood 258 mg/dL (75-99)
[2020-01-23 15:04] VITALS: BP 171/88; PULSE 67; TEMP 97.7
--- NOTE | 2020-01-23 15:58 | P.DS ---
Providers Date of admission: 01/23/20 09:22 Attending physician: Angy Sosa Consults: 01/21/20 00:57 Consult Physician Urgent Consulting Provider: Johana Wade Consult Reason/Comments: Crohns flair, diarrhea, intractable vomiting, pain, no CT changes Do you want consulting provider notified?: Yes Primary care physician: Adela Kelechi [facility] Hospital Course: Patient is admitted for possible Crohn's disease C. diff colitis was ruled out patient was started on IV steroids patient still has significant abdominal pain. 01/23/2020 Patient still has abdominal pain but the feeling better compared to yesterday. Patient is able to tolerate full liquid diet to soft diet patient will be discharged later today on oral tapering steroids with follow-up with gastroenterology as an outpatient PHYSICAL EXAMINATION: GENERAL: The patient is alert and oriented x3, not in any acute distress. Well developed, well nourished. HEENT: Pupils are round and equally reacting to light. EOMI. No scleral icterus. No conjunctival pallor. Normocephalic, atraumatic. No pharyngeal erythema. No thyromegaly. CARDIOVASCULAR: S1 and S2 present. No murmurs, rubs, or gallops. PULMONARY: Chest is clear to auscultation, no wheezing or crackles. ABDOMEN: Soft, mild tenderness in the left mid and lower abdomen nondistended, normoactive bowel sounds. No palpable organomegaly. MUSCULOSKELETAL: No joint swelling or deformity. EXTREMITIES: No cyanosis, clubbing, or pedal edema. NEUROLOGICAL: Gross neurological examination did not reveal any focal deficits. SKIN: No rashes. Assessment and Plan Plan: - Crohn's exacerbation: C. diff was ruled out after which patient will be discharged onon systemic steroids for possible Crohn's. diet will be advanced will be discharged today -Asthma without any acute exacerbation -History of DVT in the past and patient is presently not on anticoagulation Hypertension diabetes mellitus, type II:patient was actually hypoglycemic patient's long- acting insulin was down titrated in spite of systemic steroids -Hyperlipidemia Gastroesophageal reflux disease: Patient is presently on Protonix Patient Condition at Discharge: Stable Plan - Discharge Summary New Discharge Prescriptions: New Dicyclomine [Bentyl] 20 mg PO QID PRN #60 tab PRN Reason: Dyspepsia Metoprolol Tartrate [Lopressor] 25 mg PO BID #60 tab lisinopriL [Zestril] 10 mg PO DAILY #30 tab predniSONE 10 mg PO DAILY #50 tab HYDROcodone/APAP 7.5-325MG [Soso 7.5-325] 1 tab PO Q4H PRN #20 tab PRN Reason: Pain Continue levETIRAcetam [Keppra] 500 mg PO QAM Insulin Lispro [humaLOG Kwikpen] 4 unit SQ W/BRKFST Atorvastatin [Lipitor] 20 mg PO HS levETIRAcetam [Keppra] 1,000 mg PO HS Albuterol Nebulized [Ventolin Nebulized] 2.5 mg INHALATION RT-Q4H PRN PRN Reason: Shortness Of Breath Insulin Lispro [humaLOG Kwikpen] 5 unit SQ W/SUPPER Insulin Lispro [humaLOG Kwikpen] 5 unit SQ W/LUNCH LORazepam [Ativan] 0.5 mg PO Q6HR PRN PRN Reason: Anxiety Nitroglycerin Sl Tabs [Nitrostat] 0.4 mg SUBLINGUAL Q5M PRN PRN Reason: Chest Pain Nortriptyline [Pamelor] 10 mg PO BID Acetaminophen Tab [Tylenol] 1,000 - 1,500 mg PO DAILY PRN PRN Reason: Pain Albuterol Sulfate [Albuterol Sulfate Hfa] 2 puff INHALATION RT-Q4H PRN PRN Reason: Shortness Of Breath Baclofen [Lioresal] 20 mg PO BID-W/MEALS Insulin Lispro [humaLOG Kwikpen] See Protocol SQ TID-W/MEALS Zolpidem [Ambien] 10 mg PO HS PRN PRN Reason: Insomnia Changed Insulin Glargine,Hum.rec.anlog [Lantus Solostar] 32 units SQ HS #0 Discontinued Budesonide [Budesonide EC] 3 mg PO TID Insulin Glargine,Hum.rec.anlog [Lantus Solostar] 20 units SQ QAM Naproxen [Naprosyn] 500 mg PO BID-W/MEALS Discharge Medication List Atorvastatin [Lipitor] 20 mg PO HS 02/22/17 [History] Insulin Lispro [humaLOG Kwikpen] 4 unit SQ W/BRKFST 02/22/17 [History] levETIRAcetam [Keppra] 500 mg PO QAM 02/22/17 [History] levETIRAcetam [Keppra] 1,000 mg PO HS 03/10/17 [History] Albuterol Nebulized [Ventolin Nebulized] 2.5 mg INHALATION RT-Q4H PRN 04/26/17 [History] Insulin Lispro [humaLOG Kwikpen] 5 unit SQ W/LUNCH 04/26/17 [History] Insulin Lispro [humaLOG Kwikpen] 5 unit SQ W/SUPPER 04/26/17 [History] LORazepam [Ativan] 0.5 mg PO Q6HR PRN 04/26/17 [History] Nitroglycerin Sl Tabs [Nitrostat] 0.4 mg SUBLINGUAL Q5M PRN 04/26/17 [History] Acetaminophen Tab [Tylenol] 1,000 - 1,500 mg PO DAILY PRN 01/21/20 [History] Albuterol Sulfate [Albuterol Sulfate Hfa] 2 puff INHALATION RT-Q4H PRN 01/21/20 [History] Baclofen [Lioresal] 20 mg PO BID-W/MEALS 01/21/20 [History] Insulin Lispro [humaLOG Kwikpen] See Protocol SQ TID-W/MEALS 01/21/20 [History] Nortriptyline [Pamelor] 10 mg PO BID 01/21/20 [History] Zolpidem [Ambien] 10 mg PO HS PRN 01/21/20 [History] Dicyclomine [Bentyl] 20 mg PO QID PRN #60 tab 01/23/20 [Rx] HYDROcodone/APAP 7.5-325MG [Soso 7.5-325] 1 tab PO Q4H PRN #20 tab 01/23/20 [Rx] Insulin Glargine,Hum.rec.anlog [Lantus Solostar] 32 units SQ HS #0 01/23/20 [Rx] Metoprolol Tartrate [Lopressor] 25 mg PO BID #60 tab 01/23/20 [Rx] lisinopriL [Zestril] 10 mg PO DAILY #30 tab 01/23/20 [Rx] predniSONE 10 mg PO DAILY #50 tab 01/23/20 [Rx] Follow up Appointment(s)/Referral(s): Noreen Almodovar PAC [REFERRING] - 1 Week (patient advised to make own appointment, office not answering) Adela Lorenz MD [Primary Care Provider] - 3 Days Patient Instructions/Handouts: Crohn Disease (DC) Activity/Diet/Wound Care/Special Instructions: activity as tolerated consistent carb diet Discharge Disposition: HOME SELF-CARE
[2020-01-23 17:05] LABS: Glucose,Whole Blood 172 mg/dL (75-99)
== END 2020-01-23 18:35 | disposition home or self-care (01) | DRG 387 ==
LOC: EC 22:25 → 1SOBS 01-21 00:56 → OBSVTOIN 01-23 09:22
PROVIDERS: ADMIT Internal Medicine; ATTEND Internal Medicine
DX: K50.10 Crohn's disease of large intestine without complications (principal); E11.9 Type 2 diabetes mellitus without complications; E78.5 Hyperlipidemia, unspecified; J45.909 Unspecified asthma, uncomplicated; K21.9 Gastro-esophageal reflux disease without esophagitis; N20.0 Calculus of kidney; M19.90 Unspecified osteoarthritis, unspecified site; Z79.4 Long term (current) use of insulin; Z79.51 Long term (current) use of inhaled steroids; Z79.899 Other long term (current) drug therapy; Z86.718 Personal history of other venous thrombosis and embolism; Z86.73 Personal history of transient ischemic attack (TIA), and cerebral infarction without residual deficits; Z87.442 Personal history of urinary calculi; Z98.1 Arthrodesis status; Z88.6 Allergy status to analgesic agent; Z88.0 Allergy status to penicillin; Z90.49 Acquired absence of other specified parts of digestive tract; Z87.19 Personal history of other diseases of the digestive system; Z88.8 Allergy status to other drugs, medicaments and biological substances; Z91.048 Other nonmedicinal substance allergy status; Z90.2 Acquired absence of lung [part of]; Z87.09 Personal history of other diseases of the respiratory system; Z86.69 Personal history of other diseases of the nervous system and sense organs; Z86.14 Personal history of Methicillin resistant Staphylococcus aureus infection; Z82.49 Family history of ischemic heart disease and other diseases of the circulatory system
CPT/HCPCS: 36415; 74018; 74177; 80048; 80053; 81003; 82150; 83690; 85025; 85027; 85652; 86140; 87324; 94640; 96361; 96374; 96375; 99285

== ENCOUNTER 2020-05-08 17:31 | Observation (INO) | payer MEDICARE ==
[2020-05-08] MEDS ORDERED: PANTOPRAZOLE 40 MG/10 ML VIAL IVP STA (17:54)
[2020-05-08] MEDS ORDERED: SODIUM CHLORIDE 0.9% 1,000 ML IV STA (17:54)
[2020-05-08] MEDS ORDERED: MORPHINE SULFATE 4 MG/ML SYRINGE IV STA (17:54)
--- NOTE | 2020-05-08 17:59 | ED ---
General Adult HPI - General Chief complaint: Abdominal Pain Stated complaint: abd pain/sob Time Seen by Provider: 05/08/20 17:46 Source: patient, family, RN notes reviewed, old records reviewed Mode of arrival: ambulatory Limitations: no limitations - History of Present Illness Initial comments: 64-year-old male presenting with generalized abdominal pain. History of Crohn's. History of multiple abdominal surgeries in the past. Patient states over the past one week he's had increased abdominal pain, diarrhea, and vomiting. He denies any blood in his vomit or diarrhea. He denies fever. He denies chest pain. Currently following with gastroenterology regarding his Crohn's disease. - Related Data Home Medications Medication Instructions Recorded Confirmed Atorvastatin [Lipitor] 20 mg PO HS 02/22/17 05/08/20 levETIRAcetam [Keppra] 500 mg PO QAM 02/22/17 05/08/20 levETIRAcetam [Keppra] 1,000 mg PO HS 03/10/17 05/08/20 Albuterol Nebulized [Ventolin 2.5 mg INHALATION RT-Q4H PRN 04/26/17 05/08/20 Nebulized] Insulin Lispro [humaLOG Kwikpen] 5 unit SQ AC-TID 04/26/17 05/08/20 LORazepam [Ativan] 0.5 mg PO QID PRN 04/26/17 05/08/20 Nitroglycerin Sl Tabs [Nitrostat] 0.4 mg SUBLINGUAL Q5M PRN 04/26/17 05/08/20 Albuterol Sulfate [Albuterol 2 puff INHALATION RT-Q4H PRN 01/21/20 05/08/20 Sulfate Hfa] Baclofen [Lioresal] 20 mg PO BID-W/MEALS 01/21/20 05/08/20 Insulin Lispro [humaLOG Kwikpen] See Protocol SQ TID-W/MEALS 01/21/20 05/08/20 Nortriptyline [Pamelor] 10 mg PO BID 01/21/20 05/08/20 Zolpidem [Ambien] 10 mg PO HS PRN 01/21/20 05/08/20 Budesonide [Budesonide EC] 9 mg PO DAILY 05/08/20 05/08/20 Budesonide/Formoterol Fumarate 2 puff INHALATION RT-DAILY 05/08/20 05/08/20 [Symbicort 160-4.5 Mcg Inhaler] Insulin Glargine,Hum.rec.anlog 20 unit SQ DAILY 05/08/20 05/08/20 [Lantus Solostar] Naproxen 500 mg PO BID 05/08/20 05/08/20 Pantoprazole Sodium [Protonix] 40 mg PO DAILY 05/08/20 05/08/20 Promethazine [Phenergan] 25 mg PO DAILY PRN 05/08/20 05/08/20 Tiotropium [place] [Spiriva 1 spray INHALATION RT-DAILY 05/08/20 05/08/20 Respimat] Previous Rx's Medication Instructions Recorded Insulin Glargine,Hum.rec.anlog 32 units SQ HS #0 01/23/20 [Lantus Solostar] Metoprolol Tartrate [Lopressor] 25 mg PO BID #60 tab 01/23/20 lisinopriL [Zestril] 10 mg PO DAILY #30 tab 01/23/20 Allergies Allergy/AdvReac Type Severity Reaction Status Date / Time aspirin Allergy Swelling Verified 05/08/20 19:03 nalbuphine HCl [From Nubain] Allergy Vomiting Verified 05/08/20 19:03 ondansetron HCl [From Zofran] Allergy Unknown Verified 05/08/20 19:03 penicillin G Allergy Rash/Hives Verified 05/08/20 19:03 venom-wasp [Wasp Venom] Allergy Anaphylaxis Verified 05/08/20 19:03 Review of Systems ROS Statement: Those systems with pertinent positive or pertinent negative responses have been documented in the HPI. ROS Other: All systems not noted in ROS Statement are negative. Past Medical History Past Medical History: Asthma, CVA/TIA, Diabetes Mellitus, Deep Vein Thrombosis (DVT), GERD/Reflux, Osteoarthritis (OA), Skin Disorder Additional Past Medical History / Comment(s): HX OF KIDNEY STONES, CROHNS DISEASE, HX OF BLOOD CLOT RT ARM AND BEHIND RT KNEE, TIA/seizure/brain bleed 08/2016, see Dr Wright H&P, "spots of dry skin", hx anemia History of Any Multi-Drug Resistant Organisms: MRSA Date of last positivie culture/infection: 2006 MDRO Source:: nose Past Surgical History: Appendectomy, Back Surgery, Bowel Resection, Cholec ystectomy, Heart Catheterization, Prostate Surgery Additional Past Surgical History / Comment(s): BOWEL RESECTION X 5, SPINAL SURGERIES X3, LEFT LOBECTOMY. lithotripsy, TURP, neck fusion Past Anesthesia/Blood Transfusion Reactions: No Reported Reaction Past Psychological History: No Psychological Hx Reported Smoking Status: Former smoker Past Alcohol Use History: None Reported Past Drug Use History: None Reported - Past Family History Mother Family Medical History: Deep Vein Thrombosis (DVT) General Exam Limitations: no limitations General appearance: alert, in no apparent distress Head exam: Present: atraumatic, normocephalic Eye exam: Present: normal appearance, PERRL ENT exam: Present: normal exam Neck exam: Present: normal inspection. Absent: tenderness, meningismus Respiratory exam: Present: normal lung sounds bilaterally. Absent: respiratory distress, wheezes Cardiovascular Exam: Present: regular rate, normal rhythm GI/Abdominal exam: Present: soft, distended, tenderness, other (Midline laparotomy scar) Extremities exam: Present: normal inspection, normal capillary refill. Absent: pedal edema Neurological exam: Present: alert, oriented X3, CN II-XII intact. Absent: motor sensory deficit Psychiatric exam: Present: normal affect, normal mood Skin exam: Present: warm, dry, intact. Absent: cyanosis, diaphoretic Course Vital Signs 05/08/20 05/08/20 17:37 18:51 Temperature 97.7 F 98.2 F Pulse Rate 98 80 Respiratory 18 18 Rate Blood Pressure 128/75 139/88 O2 Sat by Pulse 99 100 Oximetry EKG Findings - EKG Comments: EKG Findings:: EKG: Normal sinus rhythm, rate of 98, NH interval 156, QRS d uration 94, QTC [address] segment elevation Medical Decision Making - Medical Decision Making 64-year-old male history of Crohn's presenting for abdominal pain, nausea vomiting and diarrhea. Patient has distended abdomen, or workup is initiated. He he has stable hemoglobin, normal white blood cell count, he has acute kidney injury with a tripling of his creatinine from baseline. He has CT without evidence of obstruction or acute findings. Patient will be admitted with gastroenterology placed on consult. Case discussed with Dr. Resendez who will admit. - Lab Data Result diagrams: 05/08/20 18:09 05/08/20 18:09 Lab Results 05/08/20 05/08/20 05/08/20 Range/Units 18:09 18:09 18:09 WBC 6.3 (3.8-10.6) k/uL RBC 3.86 L (4.30-5.90) m/uL Hgb 13.2 (13.0-17.5) gm/dL Hct 38.3 L (39.0-53.0) % MCV 99.4 (80.0-100.0) fL MCH 34.3 (25.0-35.0) pg MCHC 34.5 (31.0-37.0) g/dL RDW 15.6 H (11.5-15.5) % Plt Count 173 (150-450) k/uL MPV 7.2 Neutrophils % 48 % Lymphocytes % 32 % Monocytes % 8 % Eosinophils % 9 % Basophils % 1 % Neutrophils # 3.0 (1.3-7.7) k/uL Lymphocytes # 2.0 (1.0-4.8) k/uL Monocytes # 0.5 (0-1.0) k/uL Eosinophils # 0.5 (0-0.7) k/uL Basophils # 0.0 (0-0.2) k/uL Macrocytosis Slight PT 11.1 (9.0-12.0) sec INR 1.0 (<1.2) APTT 23.3 (22.0-30.0) sec Sodium 136 L (137-145) mmol/L Potassium 4.6 (3.5-5.1) mmol/L Chloride 101 (98-107) mmol/L Carbon Dioxide 20 L (22-30) mmol/L Anion Gap 15 mmol/L BUN 34 H (9-20) mg/dL Creatinine 1.54 H (0.66-1.25) mg/dL Est GFR (CKD-EPI)AfAm 54 (>60 ml/min/1.73 sqM) Est GFR (CKD-EPI)NonAf 47 (>60 ml/min/1.73 sqM) Glucose 277 H (74-99) mg/dL Plasma Lactic Acid Jose Miguel (0.7-2.0) mmol/L Calcium 9.3 (8.4-10.2) mg/dL Total Bilirubin 0.9 (0.2-1.3) mg/dL AST 30 (17-59) U/L ALT 24 (4-49) U/L Alkaline Phosphatase 113 (38-126) U/L Total Protein 7.9 (6.3-8.2) g/dL Albumin 4.1 (3.5-5.0) g/dL Amylase 51 (30-110) U/L Lipase 140 (23-300) U/L Urine Color Urine Appearance (Clear) Urine pH (5.0-8.0) Ur Specific [place] (1.001-1.035) Urine Protein (Negative) Urine Glucose (UA) (Negative) Urine Ketones (Negative) Urine Blood (Negative) Urine Nitrite (Negative) Urine Bilirubin (Negative) Urine Urobilinogen (<2.0) mg/dL Ur Leukocyte Esterase (Negative) Urine RBC (0-5) /hpf Urine WBC (0-5) /hpf Ur Squamous Epith Cells (0-4) /hpf Urine Bacteria (None) /hpf Hyaline Casts (0-2) /lpf Urine Mucus (None) /hpf 05/08/20 05/08/20 Range/Units 18:09 18:17 WBC (3.8-10.6) k/uL RBC (4.30-5.90) m/uL Hgb (13.0-17.5) gm/dL Hct (39.0-53.0) % MCV (80.0-100.0) fL MCH (25.0-35.0) pg MCHC (31.0-37.0) g/dL RDW (11.5-15.5) % Plt Count (150-450) k/uL MPV Neutrophils % % Lymphocytes % % Monocytes % % Eosinophils % % Basophils % % Neutrophils # (1.3-7.7) k/uL Lymphocytes # (1.0-4.8) k/uL Monocytes # (0-1.0) k/uL Eosinophils # (0-0.7) k/uL Basophils # (0-0.2) k/uL Macrocytosis PT (9.0-12.0) sec INR (<1.2) APTT (22.0-30.0) sec Sodium (137-145) mmol/L Potassium (3.5-5.1) mmol/L Chloride (98-107) mmol/L Carbon Dioxide (22-30) mmol/L Anion Gap mmol/L BUN (9-20) mg/dL Creatinine (0.66-1.25) mg/dL Est GFR (CKD-EPI)AfAm (>60 ml/min/1.73 sqM) Est GFR (CKD-EPI)NonAf (>60 ml/min/1.73 sqM) Glucose (74-99) mg/dL Plasma Lactic Acid Jose Miguel 1.8 (0.7-2.0) mmol/L Calcium (8.4-10.2) mg/dL Total Bilirubin (0.2-1.3) mg/dL AST (17-59) U/L ALT (4-49) U/L Alkaline Phosphatase (38-126) U/L Total Protein (6.3-8.2) g/dL Albumin (3.5-5.0) g/dL Amylase (30-110) U/L Lipase (23-300) U/L Urine Color Yellow Urine Appearance Cloudy (Clear) Urine pH 5.5 (5.0-8.0) Ur Specific [place] 1.029 (1.001-1.035) Urine Protein 1+ H (Negative) Urine Glucose (UA) 2+ H (Negative) Urine Ketones Negative (Negative) Urine Blood Negative (Negative) Urine Nitrite Negative (Negative) Urine Bilirubin Negative (Negative) Urine Urobilinogen <2.0 (<2.0) mg/dL Ur Leukocyte Esterase Moderate H (Negative) Urine RBC 7 H (0-5) /hpf Urine WBC 30 H (0-5) /hpf Ur Squamous Epith Cells <1 (0-4) /hpf Urine Bacteria Occasional H (None) /hpf Hyaline Casts 21 H (0-2) /lpf Urine Mucus Rare H (None) /hpf Disposition Clinical Impression: Crohn's disease, Abdominal pain, Acute renal failure, Dehydration Dis[facility] Condition: Stable Is patient prescribed a controlled substance at d/c from ED?: No Referrals: Adela Lorenz MD [Primary Care Provider] - 1-2 days Decision to Admit Reason: Admit from EC Decision Date: 05/08/20 Decision Time: 19:46
[2020-05-08 18:17] LABS: Basophils % (A) 1 %; Eosinophils # (A) 0.5 k/uL (0-0.7); Eosinophils % (A) 9 %; HCT 38.3 % (39.0-53.0); HGB 13.2 gm/dL (13.0-17.5); Lymphocytes % (A) 32 %; MCH 34.3 pg (25.0-35.0); MCHC 34.5 g/dL (31.0-37.0); MCV 99.4 fL (80.0-100.0); Macrocytosis Slight; Mean Platelet Volume 7.2; Monocytes # (A) 0.5 k/uL (0-1.0); Monocytes % (A) 8 %; Neutrophils % (A) 48 %; Platelet Count 173 k/uL (150-450); RBC 3.86 m/uL (4.30-5.90); RDW 15.6 % (11.5-15.5); WBC 6.3 k/uL (3.8-10.6)
[2020-05-08 18:28] LABS: Albumin 4.1 g/dL (3.5-5.0); Calcium 9.3 mg/dL (8.4-10.2); Potassium 4.6 mmol/L (3.5-5.1); Total Bilirubin 0.9 mg/dL (0.2-1.3); Total Protein 7.9 g/dL (6.3-8.2)
[2020-05-08 18:39] LABS: Appearance,Urine Cloudy (Clear); Bacteria,Urine Occasional /hpf; Bilirubin,Urine Negative (Negative); Blood,Urine Negative (Negative); Color,Urine Yellow; Glucose,Urine (UA) 2+ (Negative); Hyaline Casts,Urine 21 /lpf (0-2); Ketones,Urine Negative (Negative); Leukocyte Esterase,Urine Moderate (Negative); Mucus,Urine Rare /hpf; Nitrite,Urine Negative (Negative); PH, Urine 5.5 (5.0-8.0); Protein,Urine 1+ (Negative); RBC,Urine 7 /hpf (0-5); Specific Gravity,Urine 1.029 (1.001-1.035); Squamous Epithelial Cell,Urine <1 /hpf (0-4); Urobilinogen,Urine <2.0 mg/dL (<2.0); WBC,Urine 30 /hpf (0-5)
[2020-05-08 18:49] LABS: Partial Thromboplastin Time 23.3 sec (22.0-30.0); Prothrombin Time 11.1 sec (9.0-12.0)
[2020-05-08] MEDS ORDERED: SODIUM CHLORIDE 0.9% 500 ML 500 ML IV ONE (18:56)
--- NOTE | 2020-05-08 19:19 | CT ---
EXAMINATION TYPE: CT abdomen pelvis wo con DATE OF EXAM: 05/08/2020 COMPARISON: 01/21/2020 HISTORY: Abdominal pain and distention CT DLP: 700.4 mGycm Automated exposure control for dose reduction was used. There is mild subsegmental atelectasis at the lung bases. Heart size is normal. There is no pericardi al effusion. Liver spleen pancreas stomach appear intact. The bile ducts are not dilated. There are clips from cho lecystectomy. There is no adrenal mass. Kidneys show normal size. There is 1.5 cm calculus lower pole right kidney. The ureters are not dilated. There is no retroperitoneal adenopathy. Bladder distends smoothly. Ther e is prostatic calcification. There is no inguinal hernia. There is no free fluid in the pelvis. There is no mesenteric edema. There is no ascites or free air. There is previous surgery of the trans verse colon. There is apparent right hemicolectomy. The lumbar vertebra have normal alignment. There is posterior fusion surgery at L5-S1. There is no violette mbar compression fracture. Bony pelvis is intact. The hip joints are intact. There is broad-based umb ilical hernia that contains fat and small bowel. There is no evidence of a bowel obstruction. IMPRESSION: Previous bowel surgery. No evidence of bowel obstruction. No change compared to old exam. large right side nonobstructing renal calculus unchanged. Umbilical hernia unchanged. There is some mild interstitial infiltrate in subsegmental atelectasis at the lung bases increased co mpared to old exam.
[2020-05-08] MEDS ORDERED: methylPREDNISolone SOD SUCCI 125 MG/2 ML VIAL IV STA (19:26)
[2020-05-08] MEDS ORDERED: NALOXONE 0.4 MG/ML 1 ML VIAL IV PRN (19:27)
[2020-05-08] MEDS: SODIUM CHLORIDE 0.9% 1,000 ML IV SCH (19:38)
[2020-05-08] MEDS ORDERED: PROMETHAZINE 25 MG TAB PO PRN (21:35)
[2020-05-08] MEDS ORDERED: ALBUTEROL NEBULIZED 2.5 MG/3 ML INHALATION PRN (21:35)
[2020-05-08] MEDS ORDERED: LORazepam 0.5 MG TAB PO PRN (21:35)
[2020-05-08] MEDS ORDERED: ZOLPIDEM 5 MG TAB PO PRN (21:35)
[2020-05-08] MEDS ORDERED: ALBUTEROL HFA INHALER INHALATION PRN (21:35)
[2020-05-08 22:23] LABS: Glucose,Whole Blood 230 mg/dL (75-99)
[2020-05-08] MEDS: INSULIN DETEMIR (LEVEMIR) 100 UNIT/ML SYR SQ SCH (22:23)
[2020-05-08] MEDS: ATORVASTATIN 20 MG TAB PO SCH (22:23)
[2020-05-08] MEDS: NORTRIPTYLINE 10 MG CAP PO SCH (22:23)
[2020-05-08] MEDS: levETIRAcetam 500 MG TAB PO SCH (22:23)
[2020-05-08] MEDS: MORPHINE SULFATE 4 MG/ML SYRINGE IV PRN (22:23)
[2020-05-09] MEDS: MORPHINE SULFATE 4 MG/ML SYRINGE IV PRN ×5 (02:27→20:39)
[2020-05-09 04:55] LABS: Basophils % (A) 0 %; Eosinophils % (A) 1 %; HCT 33.6 % (39.0-53.0); HGB 11.4 gm/dL (13.0-17.5); Lymphocytes # (A) 0.6 k/uL (1.0-4.8); Lymphocytes % (A) 22 %; MCH 34.3 pg (25.0-35.0); MCV 100.8 fL (80.0-100.0); Macrocytosis Slight; Mean Platelet Volume 7.5; Monocytes # (A) 0.1 k/uL (0-1.0); Monocytes % (A) 2 %; Neutrophils # (A) 2.1 k/uL (1.3-7.7); Neutrophils % (A) 74 %; Platelet Count 164 k/uL (150-450); RBC 3.33 m/uL (4.30-5.90); RDW 15.4 % (11.5-15.5); WBC 2.9 k/uL (3.8-10.6)
[2020-05-09] MEDS: SODIUM CHLORIDE 0.9% 1,000 ML IV SCH ×2 (06:01→15:28)
[2020-05-09 07:00] LABS: Glucose,Whole Blood 276 mg/dL (75-99)
[2020-05-09] MEDS: INSULIN ASPART (NovoLOG) 100 UNIT/ML VIAL SQ SCH ×3 (07:26→17:51)
[2020-05-09] MEDS: INSULIN DETEMIR (LEVEMIR) 100 UNIT/ML SYR SQ SCH ×2 (07:26→20:31)
[2020-05-09] MEDS: BACLOFEN 10 MG TAB PO SCH ×2 (07:27→17:50)
[2020-05-09] MEDS: IPRATROPIUM 0.5 MG/2.5 ML NEBU INHALATION SCH ×4 (07:50→20:08)
[2020-05-09] MEDS: SYMBICORT 160-4.5 MCG INHALER INHALATION SCH (07:50)
[2020-05-09 08:07] VITALS: TEMP 97.7
[2020-05-09] MEDS: levETIRAcetam 500 MG TAB PO SCH ×2 (08:42→20:32)
[2020-05-09] MEDS: NORTRIPTYLINE 10 MG CAP PO SCH ×2 (08:43→20:32)
[2020-05-09] MEDS: PANTOPRAZOLE 40 MG TABLET PO SCH (08:43)
[2020-05-09] MEDS ORDERED: PANTOPRAZOLE 40 MG/10 ML VIAL IV SCH (09:00)
[2020-05-09] MEDS ORDERED: lisinopriL 10 MG TAB PO SCH (09:00)
[2020-05-09] MEDS: METOPROLOL TARTRATE 25 MG TAB PO SCH ×2 (09:17→20:32)
[2020-05-09 09:36] LABS: African American GFR (CKD) 73.1 (60.0-200.0); Albumin 3.9 g/dL (3.80-4.90); Albumin/Globulin Ratio 1.7 (1.60-3.17); Anion Gap 7.5 mmol/L (4.00-12.00); Calcium 8.1 mg/dL (8.7-10.3); Carbon Dioxide 22.5 mmol/L (21.6-31.8); Globulin 2.3 g/dL (1.6-3.3); Non-African American GFR(CKD) 63.1 (60.0-200.0); Potassium 4.5 mmol/L (3.5-5.5); Total Bilirubin 0.4 mg/dL (0.2-1.2); Total Protein 6.2 g/dL (6.2-8.2)
[2020-05-09 10:00] VITALS: RESP 18
[2020-05-09] MEDS: BUDESONIDE 3 MG PO SCH (10:04)
[2020-05-09 11:28] LABS: Glucose,Whole Blood 210 mg/dL (75-99)
--- NOTE | 2020-05-09 12:09 | P.HPIM ---
History of Present Illness 62-year-old pleasant male came in with complaints of abdominal pain in the periumlical area next to his ventral hernia, similar to his Crohn's exacerbation pain sharp in nature moderate severity. Patient had multiple episodes of di arrhea episodes of diarrhea is worse than his usual patient usually has about 6 episodes a day of diarrhea from his Crohn's disease. Patient has multiple abdominal surgeries in the past and patient is supposed to be started on biologic agents and patient is on by mouth budesonide for Crohn's disease. Patient had a CT of the abdomen which did show some mild 1.5 cm nonobstructing nephrolithiasis although doesn't appear to be contributing to his pain. Patient was also having nausea vomiting yesterday patient had elevated creatinine up to 1.54 baseline is normal and was 0.66 in the past. Review of Systems REVIEW OF SYSTEMS: CONSTITUTIONAL: No fever, no malaise, no fatigue. HEENT: No recent visual problems or hearing problems. Denied any sore throat. CARDIOVASCULAR: No chest pain, orthopnea, PND, no palpitations, no syncope. PULMONARY: No shortness of breath, no cough, no hemoptysis. GASTROINTESTINAL: No blood in the stools NEUROLOGICAL: No headaches, no weakness, no numbness. HEMATOLOGICAL: Denies any bleeding or petechiae. GENITOURINARY: Denies any burning micturition, frequency, or urgency. MUSCULOSKELETAL/RHEUMATOLOGICAL: Denies any joint pain, swelling, or any muscle pain. ENDOCRINE: Denies any polyuria or polydipsia. The rest of the 14-point review of systems is negative. Past Medical History Past Medical History: Asthma, CVA/TIA, Diabetes Mellitus, Deep Vein Thrombosis (DVT), GERD/Reflux, Osteoarthritis (OA), Skin Disorder Additional Past Medical History / Comment(s): HX OF KIDNEY STONES, CROHNS DISEASE, HX OF BLOOD CLOT RT ARM AND BEHIND RT KNEE, TIA/seizure/brain bleed 08/2016, see Dr Wright H&P, "spots of dry skin", hx anemia, september 2018 stone removed L kidney History of Any Multi-Drug Resistant Organisms: MRSA Date of last positivie culture/infection: 2006 MDRO Source:: nose Past Surgical History: Appendectomy, Back Surgery, Bowel Resection, Cholec ystectomy, Heart Catheterization, Prostate Surgery Additional Past Surgical History / Comment(s): BOWEL RESECTION X 5, SPINAL SURGERIES X3, LEFT LOBECTOMY. lithotripsy, TURP, neck fusion. Past Anesthesia/Blood Transfusion Reactions: No Reported Reaction Past Psychological History: No Psychological Hx Reported Smoking Status: Former smoker Past Alcohol Use History: None Reported Additional Past Alcohol Use History / Comment(s): quit smoking 2005, smoked for > 30 yrs. 1-2 PPD Past Drug Use History: None Reported - Past Family History Mother Family Medical History: Deep Vein Thrombosis (DVT) Medications and Allergies Home Medications Medication Instructions Recorded Confirmed Type Atorvastatin [Lipitor] 20 mg PO HS 02/22/17 05/08/20 History levETIRAcetam [Keppra] 500 mg PO QAM 02/22/17 05/08/20 History levETIRAcetam [Keppra] 1,000 mg PO HS 03/10/17 05/08/20 History Albuterol Nebulized [Ventolin 2.5 mg INHALATION RT-Q4H PRN 04/26/17 05/08/20 History Nebulized] Insulin Lispro [humaLOG Kwikpen] 5 unit SQ AC-TID 04/26/17 05/08/20 History LORazepam [Ativan] 0.5 mg PO QID PRN 04/26/17 05/08/20 History Nitroglycerin Sl Tabs [Nitrostat] 0.4 mg SUBLINGUAL Q5M PRN 04/26/17 05/08/20 History Albuterol Sulfate [Albuterol 2 puff INHALATION RT-Q4H PRN 01/21/20 05/08/20 History Sulfate Hfa] Baclofen [Lioresal] 20 mg PO BID-W/MEALS 01/21/20 05/08/20 History Insulin Lispro [humaLOG Kwikpen] See Protocol SQ TID-W/MEALS 01/21/20 05/08/20 History Nortriptyline [Pamelor] 10 mg PO BID 01/21/20 05/08/20 History Zolpidem [Ambien] 10 mg PO HS PRN 01/21/20 05/08/20 History Insulin Glargine,Hum.rec.anlog 32 units SQ HS #0 01/23/20 05/08/20 Rx [Lantus Solostar] Metoprolol Tartrate [Lopressor] 25 mg PO BID #60 tab 01/23/20 05/08/20 Rx lisinopriL [Zestril] 10 mg PO DAILY #30 tab 01/23/20 05/08/20 Rx Budesonide [Budesonide EC] 9 mg PO DAILY 05/08/20 05/08/20 History Budesonide/Formoterol Fumarate 2 puff INHALATION RT-DAILY 05/08/20 05/08/20 History [Symbicort 160-4.5 Mcg Inhaler] Insulin Glargine,Hum.rec.anlog 20 unit SQ DAILY 05/08/20 05/08/20 History [Lantus Solostar] Naproxen 500 mg PO BID 05/08/20 05/08/20 History Pantoprazole Sodium [Protonix] 40 mg PO DAILY 05/08/20 05/08/20 History Promethazine [Phenergan] 25 mg PO DAILY PRN 05/08/20 05/08/20 History Tiotropium [place] [Spiriva 1 spray INHALATION RT-DAILY 05/08/20 05/08/20 History Respimat] Allergies Allergy/AdvReac Type Severity Reaction Status Date / Time aspirin Allergy Swelling Verified 05/08/20 19:03 nalbuphine HCl [From Nubain] Allergy Vomiting Verified 05/08/20 19:03 ondansetron HCl [From Zofran] Allergy Unknown Verified 05/08/20 19:03 penicillin G Allergy Rash/Hives Verified 05/08/20 19:03 venom-wasp [Wasp Venom] Allergy Anaphylaxis Verified 05/08/20 19:03 Physical Exam Vitals: Vital Signs Temp Pulse Pulse Resp BP BP Pulse Ox 05/09/20 11:23 68 05/09/20 11:10 72 05/09/20 08:09 71 05/09/20 08:00 97.7 F 85 18 133/76 95 05/09/20 07:51 75 05/09/20 01:59 97.9 F 89 18 125/79 95 05/08/20 20:58 97.5 F L 79 18 118/73 98 05/08/20 19:46 85 18 113/70 98 05/08/20 18:51 98.2 F 80 18 139/88 100 05/08/20 17:37 97.7 F 98 18 128/75 99 Intake and Output 0105/09/20 05/09/20 22:59 06:59 14:59 Intake Total 1200 Balance 1200 Intake: Intake, IV Titration 1200 Amount Sodium Chloride 0.9% 1, 1200 000 ml @ 100 mls/hr IV . Q10H [facility] Rx#:[id number] Other: Voiding Method Toilet # Voids 2 Weight 97.069 kg PHYSICAL EXAMINATION: GENERAL: The patient is alert and oriented x3, not in any acute distress. Well developed, well nourished. HEENT: Pupils are round and equally reacting to light. EOMI. No scleral icterus. No conjunctival pallor. Normocephalic, atraumatic. No pharyngeal erythema. No thyromegaly. CARDIOVASCULAR: S1 and S2 present. No murmurs, rubs, or gallops. PULMONARY: Chest is clear to auscultation, no wheezing or crackles. ABDOMEN: Patient has extensive 2 abdominal scars and patient has midabdomen left-sided ventral hernia next to the midline. Mild tenderness next Hernia. MUSCULOSKELETAL: No joint swelling or deformity. EXTREMITIES: No cyanosis, clubbing, or pedal edema. NEUROLOGICAL: Gross neurological examination did not reveal any focal deficits. SKIN: No rashes. Results CBC & Chem 7: 05/09/20 04:06 05/09/20 04:06 Labs: Abnormal Lab Results - Last 24 Hours (Table) 05/08/20 05/08/20 05/08/20 Range/Units 18:09 18:09 18:17 WBC (3.8-10.6) k/uL RBC 3.86 L (4.30-5.90) m/uL Hgb (13.0-17.5) gm/dL Hct 38.3 L (39.0-53.0) % MCV (80.0-100.0) fL RDW 15.6 H (11.5-15.5) % Lymphocytes # (1.0-4.8) k/uL ESR (0-15) mm/hr Sodium 136 L (137-145) mmol/L Carbon Dioxide 20 L (22-30) mmol/L BUN 34 H (9-20) mg/dL Creatinine 1.54 H (0.66-1.25) mg/dL BUN/Creatinine Ratio (12.00-20.00) Ratio Glucose 277 H (74-99) mg/dL POC Glucose (mg/dL) (75-99) mg/dL Calcium (8.7-10.3) mg/dL AST (14-35) U/L Urine Protein 1+ H (Negative) Urine Glucose (UA) 2+ H (Negative) Ur Leukocyte Esterase Moderate H (Negative) Urine RBC 7 H (0-5) /hpf Urine WBC 30 H (0-5) /hpf Urine Bacteria Occasional H (None) /hpf Hyaline Casts 21 H (0-2) /lpf Urine Mucus Rare H (None) /hpf 05/08/20 05/09/20 05/09/20 Range/Units 22:22 04:06 04:06 WBC 2.9 L (3.8-10.6) k/uL RBC 3.33 L (4.30-5.90) m/uL Hgb 11.4 L (13.0-17.5) gm/dL Hct 33.6 L (39.0-53.0) % MCV 100.8 H (80.0-100.0) fL RDW (11.5-15.5) % Lymphocytes # 0.6 L (1.0-4.8) k/uL ESR (0-15) mm/hr Sodium (137-145) mmol/L Carbon Dioxide (22-30) mmol/L BUN 30.0 H (9-20) mg/dL Creatinine (0.66-1.25) mg/dL BUN/Creatinine Ratio 25.00 H (12.00-20.00) Ratio Glucose 335 H (74-99) mg/dL POC Glucose (mg/dL) 230 H (75-99) mg/dL Calcium 8.1 L (8.7-10.3) mg/dL AST 13 L (14-35) U/L Urine Protein (Negative) Urine Glucose (UA) (Negative) Ur Leukocyte Esterase (Negative) Urine RBC (0-5) /hpf Urine WBC (0-5) /hpf Urine Bacteria (None) /hpf Hyaline Casts (0-2) /lpf Urine Mucus (None) /hpf 05/09/20 05/09/20 05/09/20 Range/Units 04:06 06:54 11:27 WBC (3.8-10.6) k/uL RBC (4.30-5.90) m/uL Hgb (13.0-17.5) gm/dL Hct (39.0-53.0) % MCV (80.0-100.0) fL RDW (11.5-15.5) % Lymphocytes # (1.0-4.8) k/uL ESR 48 H (0-15) mm/hr Sodium (137-145) mmol/L Carbon Dioxide (22-30) mmol/L BUN (9-20) mg/dL Creatinine (0.66-1.25) mg/dL BUN/Creatinine Ratio (12.00-20.00) Ratio Glucose (74-99) mg/dL POC Glucose (mg/dL) 276 H 210 H (75-99) mg/dL Calcium (8.7-10.3) mg/dL AST (14-35) U/L Urine Protein (Negative) Urine Glucose (UA) (Negative) Ur Leukocyte Esterase (Negative) Urine RBC (0-5) /hpf Urine WBC (0-5) /hpf Urine Bacteria (None) /hpf Hyaline Casts (0-2) /lpf Urine Mucus (None) /hpf Microbiology - Last 24 Hours (Table) 05/08/20 18:17 Urine Culture - Preliminary Urine,Voided Thrombosis Risk Factor Assmnt - Choose All That Apply Any of the Below Risk Factors Present?: Yes Each Factor Represents 1 point: Obesity (BMI >25) Other Risk Factors: Yes Each Risk Factor Represents 2 Points: Age 61-74 years Each Risk Factor Represents 3 Points: History of DVT/PE Thrombosis Risk Factor Assessment Total Risk Factor Score: 6 Thrombosis Risk Factor Assessment Level: High Risk Assessment and Plan Plan: -Abdominal pain: Probably secondary to Crohn's exacerbation patient was resumed on oral budesonide I'll leave further management decisions to gastroenterology. Patient pain is better controlled with morphine which will be continued -Acute renal failure: Secondary to nausea vomiting and diarrhea which is again secondary to Crohn's disease leading to prerenal azotemia continue with IV fluids at present rate patient had improved creatinine from 1.5-1.2 will repeat and monitor kidney function -Hypovolemic hyponatremia improved with IV fluids -Incidental finding of right-sided nephrolithiasis nonobstructive doesn't appear to be causing any symptoms at this time no further intervention -CVA/TIA in the past [place]-history of DVT in the past -Gastroesophageal reflux disease -Asthma without any acute exacerbation -Seizure disorder for which patient is on Keppra which will be continued -Hypertension -DVT prophylaxis with sub cutaneous heparin
[2020-05-09] MEDS: HEPARIN SODIUM,PORCINE 5,000 UNIT/ML 1 ML VIAL SQ SCH (15:25)
[2020-05-09] MEDS: methylPREDNISolone SOD SUCCI 40 MG/ML 1 ML VIAL IV SCH (15:26)
[2020-05-09] MEDS ORDERED: DICYCLOMINE 20 MG TAB PO PRN (15:38)
[2020-05-09 16:47] LABS: Glucose,Whole Blood 195 mg/dL (75-99)
[2020-05-09 20:29] LABS: Glucose,Whole Blood 170 mg/dL (75-99)
[2020-05-09] MEDS: ATORVASTATIN 20 MG TAB PO SCH (20:31)
[2020-05-10 00:07] VITALS: BP 106/61
[2020-05-10] MEDS: methylPREDNISolone SOD SUCCI 40 MG/ML 1 ML VIAL IV SCH ×2 (00:23→07:29)
[2020-05-10] MEDS: SODIUM CHLORIDE 0.9% 1,000 ML IV SCH ×2 (00:23→15:00)
[2020-05-10] MEDS: HEPARIN SODIUM,PORCINE 5,000 UNIT/ML 1 ML VIAL SQ SCH ×2 (00:23→07:28)
[2020-05-10] MEDS: MORPHINE SULFATE 4 MG/ML SYRINGE IV PRN ×3 (03:23→13:44)
[2020-05-10] MEDS: SYMBICORT 160-4.5 MCG INHALER INHALATION SCH (07:07)
[2020-05-10] MEDS: IPRATROPIUM 0.5 MG/2.5 ML NEBU INHALATION SCH ×3 (07:07→15:36)
[2020-05-10 07:08] LABS: Glucose,Whole Blood 138 mg/dL (75-99)
[2020-05-10] MEDS: INSULIN DETEMIR (LEVEMIR) 100 UNIT/ML SYR SQ SCH (07:28)
[2020-05-10] MEDS: BACLOFEN 10 MG TAB PO SCH (07:28)
[2020-05-10] MEDS: INSULIN ASPART (NovoLOG) 100 UNIT/ML VIAL SQ SCH ×2 (07:29→12:45)
[2020-05-10 09:26] LABS: African American GFR (CKD) 108.6 (60.0-200.0); Anion Gap 7.4 mmol/L (4.00-12.00); BUN/Creat Ratio 33.75 Ratio (12.00-20.00); C Reactive Protein 0.4 mg/dL (0.0-0.8); Calcium 7.8 mg/dL (8.7-10.3); Carbon Dioxide 21.6 mmol/L (21.6-31.8); Non-African American GFR(CKD) 93.7 (60.0-200.0); Potassium 4.1 mmol/L (3.5-5.5)
[2020-05-10] MEDS: NORTRIPTYLINE 10 MG CAP PO SCH (09:55)
[2020-05-10] MEDS: METOPROLOL TARTRATE 25 MG TAB PO SCH (09:55)
[2020-05-10] MEDS: PANTOPRAZOLE 40 MG TABLET PO SCH (09:55)
[2020-05-10] MEDS: levETIRAcetam 500 MG TAB PO SCH (09:56)
[2020-05-10] MEDS: BUDESONIDE 3 MG PO SCH (09:57)
[2020-05-10 11:29] VITALS: PULSE 72
[2020-05-10 11:58] LABS: Glucose,Whole Blood 125 mg/dL (75-99)
[2020-05-10] MEDS ORDERED: CYANOCOBALAMIN 1,000 MCG/ML 1 ML VIAL IM ONE (12:57)
--- NOTE | 2020-05-10 13:00 | P.DS ---
Providers Date of admission: 05/08/20 19:27 Attending physician: Gracy Resendez Consults: 05/08/20 19:31 Consult Physician Routine Consulting Provider: Johana Wade Consult Reason/Comments: Crohn's, abdominal pain, dehydration Do you want consulting provider notified?: Yes Primary care physician: Adela [facility] Course: 62-year-old pleasant male came in with complaints of abdominal pain in the periumlical area next to his ventral hernia, similar to his Crohn's exacerbation pain sharp in nature moderate severity. Patient had multiple episodes of diarrhea episodes of diarrhea is worse than his usual patient usually has about 6 episodes a day of diarrhea from his Crohn's disease. Patient has multiple abdominal surgeries in the past and patient is supposed to be started on biologic agents and patient is on by mouth budesonide for Crohn's disease. Patient had a CT of the abdomen which did show some mild 1.5 cm nonobstructing nephrolithiasis although doesn't appear to be contributing to his pain. Patient was also having nausea vomiting yesterday patient had elevated creatinine up to 1.54 baseline is normal and was 0.66 in the past. 05/10/2020 Patient's symptoms of diarrhea improved patient is presently on Ventolin IV steroids patient will be changed to weaning doses of oral steroids and probably be discharged later today patient is presently on clear liquid diet and advanced to full liquid diet later in the day and patient will be evaluated for biologic agents as an outpatient. PHYSICAL EXAMINATION: GENERAL: The patient is alert and oriented x3, not in any acute distress. Well developed, well nourished. HEENT: Pupils are round and equally reacting to light. EOMI. No scleral icterus. No conjunctival pallor. Normocephalic, atraumatic. No pharyngeal erythema. No thyromegaly. CARDIOVASCULAR: S1 and S2 present. No murmurs, rubs, or gallops. PULMONARY: Chest is clear to auscultation, no wheezing or crackles. ABDOMEN: Patient has extensive 2 abdominal scars and patient has midabdomen left-sided ventral hernia next to the midline. Mild tenderness next Hernia. MUSCULOSKELETAL: No joint swelling or deformity. EXTREMITIES: No cyanosis, clubbing, or pedal edema. NEUROLOGICAL: Gross neurological examination did not reveal any focal deficits. SKIN: No rashes. Assessment and Plan Plan: -Abdominal pain: Recent symptoms improved with the IV low-dose steroid patient will be discharged on weaning dose of prednisone -Acute renal failure: Her to nausea vomiting and feeling azotemia improved now -Hypovolemic hyponatremia improved with IV fluids -Incidental finding of right-sided nephrolithiasis nonobstructive doesn't appear to be causing any symptoms at this time no further intervention -CVA/TIA in the past -history of DVT in the past -B12 deficiency patient will be given a B12 injection and patient will be discharged on supplementation for B12, folic acid. -Gastroesophageal reflux disease -Asthma without any acute exacerbation -Seizure disorder for which patient is on Keppra which will be continued -Hypertension Patient Condition at Discharge: Stable Plan - Discharge Summary New Discharge Prescriptions: No Action levETIRAcetam [Keppra] 500 mg PO QAM Atorvastatin [Lipitor] 20 mg PO HS levETIRAcetam [Keppra] 1,000 mg PO HS Albuterol Nebulized [Ventolin Nebulized] 2.5 mg INHALATION RT-Q4H PRN PRN Reason: Shortness Of Breath Insulin Lispro [humaLOG Kwikpen] 5 unit SQ AC-TID LORazepam [Ativan] 0.5 mg PO QID PRN PRN Reason: Anxiety Nitroglycerin Sl Tabs [Nitrostat] 0.4 mg SUBLINGUAL Q5M PRN PRN Reason: Chest Pain Nortriptyline [Pamelor] 10 mg PO BID Albuterol Sulfate [Albuterol Sulfate Hfa] 2 puff INHALATION RT-Q4H PRN PRN Reason: Shortness Of Breath Baclofen [Lioresal] 20 mg PO BID-W/MEALS Insulin Lispro [humaLOG Kwikpen] See Protocol SQ TID-W/MEALS Zolpidem [Ambien] 10 mg PO HS PRN PRN Reason: Insomnia Metoprolol Tartrate [Lopressor] 25 mg PO BID #60 tab lisinopriL [Zestril] 10 mg PO DAILY #30 tab Insulin Glargine,Hum.rec.anlog [Lantus Solostar] 32 units SQ HS #0 Budesonide [Budesonide EC] 9 mg PO DAILY Budesonide/Formoterol Fumarate [Symbicort 160-4.5 Mcg Inhaler] 2 puff INHALATION RT-DAILY Insulin Glargine,Hum.rec.anlog [Lantus Solostar] 20 unit SQ DAILY Naproxen 500 mg PO BID Pantoprazole Sodium [Protonix] 40 mg PO DAILY Promethazine [Phenergan] 25 mg PO DAILY PRN PRN Reason: Nausea Tiotropium [place] [Spiriva Respimat] 1 spray INHALATION RT-DAILY Discharge Medication List Atorvastatin [Lipitor] 20 mg PO HS 02/22/17 [History] levETIRAcetam [Keppra] 500 mg PO QAM 02/22/17 [History] levETIRAcetam [Keppra] 1,000 mg PO HS 03/10/17 [History] Albuterol Nebulized [Ventolin Nebulized] 2.5 mg INHALATION RT-Q4H PRN 04/26/17 [History] Insulin Lispro [humaLOG Kwikpen] 5 unit SQ AC-TID 04/26/17 [History] LORazepam [Ativan] 0.5 mg PO QID PRN 04/26/17 [History] Nitroglycerin Sl Tabs [Nitrostat] 0.4 mg SUBLINGUAL Q5M PRN 04/26/17 [History] Albuterol Sulfate [Albuterol Sulfate Hfa] 2 puff INHALATION RT-Q4H PRN 01/21/20 [History] Baclofen [Lioresal] 20 mg PO BID-W/MEALS 01/21/20 [History] Insulin Lispro [humaLOG Kwikpen] See Protocol SQ TID-W/MEALS 01/21/20 [History] Nortriptyline [Pamelor] 10 mg PO BID 01/21/20 [History] Zolpidem [Ambien] 10 mg PO HS PRN 01/21/20 [History] Insulin Glargine,Hum.rec.anlog [Lantus Solostar] 32 units SQ HS #0 01/23/20 [Rx] Metoprolol Tartrate [Lopressor] 25 mg PO BID #60 tab 01/23/20 [Rx] lisinopriL [Zestril] 10 mg PO DAILY #30 tab 01/23/20 [Rx] Budesonide [Budesonide EC] 9 mg PO DAILY 05/08/20 [History] Budesonide/Formoterol Fumarate [Symbicort 160-4.5 Mcg Inhaler] 2 puff INHALATION RT-DAILY 05/08/20 [History] Insulin Glargine,Hum.rec.anlog [Lantus Solostar] 20 unit SQ DAILY 05/08/20 [History] Naproxen 500 mg PO BID 05/08/20 [History] Pantoprazole Sodium [Protonix] 40 mg PO DAILY 05/08/20 [History] Promethazine [Phenergan] 25 mg PO DAILY PRN 05/08/20 [History] Tiotropium [place] [Spiriva Respimat] 1 spray INHALATION RT-DAILY 05/08/20 [History] Follow up Appointment(s)/Referral(s): Adela Lorenz MD [Primary Care Provider] - 1-2 days
--- NOTE | 2020-05-10 13:25 | P.CONS ---
History of Present Illness - Reason for Consult Consult date: 05/09/20 Crohn's disease, nausea/vomiting/diarrhea Requesting physician: Gracy Resendez - Chief Complaint Nausea/vomiting/diarrhea, abdominal pain - History of Present Illness 64-year-old male with multiple medical comorbidities including hyperlipidemia, diabetes mellitus and Crohn's disease of the small enlarged bowel requiring prior surgical resection who presented to the hospital with constellation of symptoms including nausea/vomiting/diarrhea for one week with associated abdominal pain. The patient reports one week symptoms of multiple episodes of nonbloody emesis. He also had multiple loose bowel movements approximately 6-7 daily described as nonbloody and non-melanotic. He reports pain described as continuous and sharp diffusely across his abdomen. Patient had decreased oral intake in association with his symptoms. Computed tomography scan of the abdomen performed in evaluation consistent with prior bowel surgeries and right hemicolectomy with no bowel obstruction noted and a large right sided nonobstructing renal calculi seen. Patient had colonoscopy for evaluation of his toes disease on 06/27/2019 with findings of moderate ileitis with superfici al ulcers in the ileum and ileocolonic anastomosis with normal-appearing colon. The patient previously was on biologic therapy with Entyvio and subsequently maintained on Entocort therapy however he had been off of medications at the time of colonoscopy due to cost. The patient initially had not followed up with GI after the procedure due to the Covid 19 outbreak but did follow-up after his last hospitalization at this time is in the process of trying to be restarted on biologic therapy. Review of Systems REVIEW OF SYSTEMS: CONSTITUTIONAL: Denies any fevers, chills, weight change or fatigue. CARDIOVASCULAR: Denies any chest pain, palpitations high or low blood pressures RESPIRATORY: Denies any shortness of breath, hemoptysis or cough. GENITOURINARY: No dysuria or hematuria. MUSCULOSKELETAL: No weakness reported. SKIN: Denies any new rashes or lesions, jaundice or pallor. PSYCHIATRIC: Denies any depression or anxiety. NEUROLOGY: Denies headache, denies any new focal deficits. EARS/NOSE/THROAT: No recent hearing change, congestion, nasal discharge or sore throat. EYES: No pain in eyes, discharge or change in vision. GASTROINTESTINAL: As per HPI. Past Medical History Past Medical History: Asthma, CVA/TIA, Diabetes Mellitus, Deep Vein Thrombosis (DVT), GERD/Reflux, Osteoarthritis (OA), Skin Disorder Additional Past Medical History / Comment(s): HX OF KIDNEY STONES, CROHNS DISEASE, HX OF BLOOD CLOT RT ARM AND BEHIND RT KNEE, TIA/seizure/brain bleed 08/2016, see Dr Wright H&P, "spots of dry skin", hx anemia, september 2018 stone removed L kidney History of Any Multi-Drug Resistant Organisms: MRSA Year Discovered:: 2006 MDRO Source:: nose Past Surgical History: Appendectomy, Back Surgery, Bowel Resection, Cholecystectomy, Heart Catheterization, Prostate Surgery Additional Past Surgical History / Comment(s): BOWEL RESECTION X 5, SPINAL SURGERIES X3, LEFT LOBECTOMY. lithotripsy, TURP, neck fusion. Past Anesthesia/Blood Transfusion Reactions: No Reported Reaction Past Psychological History: No Psychological Hx Reported Smoking Status: Former smoker Past Alcohol Use History: None Reported Additional Past Alcohol Use History / Comment(s): quit smoking 2005, smoked for > 30 yrs. 1-2 PPD Past Drug Use History: None Reported - Past Family History Mother Family Medical History: Deep Vein Thrombosis (DVT) Medications and Allergies Home Medications Medication Instructions Recorded Confirmed Type Atorvastatin [Lipitor] 20 mg PO HS 02/22/17 05/08/20 History levETIRAcetam [Keppra] 500 mg PO QAM 02/22/17 05/08/20 History levETIRAcetam [Keppra] 1,000 mg PO HS 03/10/17 05/08/20 History Albuterol Nebulized [Ventolin 2.5 mg INHALATION RT-Q4H PRN 04/26/17 05/08/20 History Nebulized] Insulin Lispro [humaLOG Kwikpen] 5 unit SQ AC-TID 04/26/17 05/08/20 History LORazepam [Ativan] 0.5 mg PO QID PRN 04/26/17 05/08/20 History Nitroglycerin Sl Tabs [Nitrostat] 0.4 mg SUBLINGUAL Q5M PRN 04/26/17 05/08/20 History Albuterol Sulfate [Albuterol 2 puff INHALATION RT-Q4H PRN 01/21/20 05/08/20 History Sulfate Hfa] Baclofen [Lioresal] 20 mg PO BID-W/MEALS 01/21/20 05/08/20 History Insulin Lispro [humaLOG Kwikpen] See Protocol SQ TID-W/MEALS 01/21/20 05/08/20 History Nortriptyline [Pamelor] 10 mg PO BID 01/21/20 05/08/20 History Zolpidem [Ambien] 10 mg PO HS PRN 01/21/20 05/08/20 History Insulin Glargine,Hum.rec.anlog 32 units SQ HS #0 01/23/20 05/08/20 Rx [Lantus Solostar] Metoprolol Tartrate [Lopressor] 25 mg PO BID #60 tab 01/23/20 05/08/20 Rx Budesonide [Budesonide EC] 9 mg PO DAILY 05/08/20 05/08/20 History Budesonide/Formoterol Fumarate 2 puff INHALATION RT-DAILY 05/08/20 05/08/20 History [Symbicort 160-4.5 Mcg Inhaler] Insulin Glargine,Hum.rec.anlog 20 unit SQ DAILY 05/08/20 05/08/20 History [Lantus Solostar] Naproxen 500 mg PO BID 05/08/20 05/08/20 History Pantoprazole Sodium [Protonix] 40 mg PO DAILY 05/08/20 05/08/20 History Promethazine [Phenergan] 25 mg PO DAILY PRN 05/08/20 05/08/20 History Tiotropium [place] [Spiriva 1 spray INHALATION RT-DAILY 05/08/20 05/08/20 History Respimat] Cyanocobalamin/Folic AC/Vit B6 1 each PO DAILY #60 tablet 05/10/20 Rx [Fabb Tablet] Dicyclomine [Bentyl] 20 mg PO QID PRN #60 tab 05/10/20 Rx Allergies Allergy/AdvReac Type Severity Reaction Status Date / Time aspirin Allergy Swelling Verified 05/08/20 19:03 nalbuphine HCl [From Nubain] Allergy Vomiting Verified 05/08/20 19:03 ondansetron HCl [From Zofran] Allergy Unknown Verified 05/08/20 19:03 penicillin G Allergy Rash/Hives Verified 05/08/20 19:03 venom-wasp [Wasp Venom] Allergy Anaphylaxis Verified 05/08/20 19:03 Physical Exam Vitals: Vital Signs Temp Pulse Pulse Resp BP BP Pulse Ox 05/09/20 11:23 68 05/09/20 11:10 72 05/09/20 08:09 71 05/09/20 08:00 97.7 F 85 18 133/76 95 05/09/20 07:51 75 05/09/20 01:59 97.9 F 89 18 125/79 95 05/08/20 20:58 97.5 F L 79 18 118/73 98 05/08/20 19:46 85 18 113/70 98 05/08/20 18:51 98.2 F 80 18 139/88 100 05/08/20 17:37 97.7 F 98 18 128/75 99 Intake and Output 05/08/20 05/09/20 05/09/20 22:59 06:59 14:59 Intake Total 1200 Balance 1200 Intake: Intake, IV Titration 1200 Amount Sodium Chloride 0.9% 1, 1200 000 ml @ 100 mls/hr IV . Q10H [facility] Rx#:[id number] Other: Voiding Method Toilet # Voids 2 Weight 97.069 kg On physical examination, patient appears comfortable in no apparent distress. HEAD: Normocephalic, atraumatic. EYES: No scleral icterus. No conjunctival injection. MOUTH: No lesions, tongue midline. NECK: Trachea midline, no gross abnormalities. CHEST: Decreased air entry in all sood. HEART: S1-S2 appreciated. ABDOMEN: Soft, mildly tender to palpation. Bowel sounds are positive. No organomegaly. No guarding or rigidity. EXTREMITIES: No pedal edema. SKIN: No rashes, no jaundice. NEUROLOGIC: Alert and oriented x3. No focal deficits. Results CBC & Chem 7: 05/09/20 04:06 05/10/20 04:39 Labs: Abnormal Lab Results - Last 24 Hours (Table) 05/08/20 05/08/20 05/08/20 Range/Units 18:09 18:09 18:17 WBC (3.8-10.6) k/uL RBC 3.86 L (4.30-5.90) m/uL Hgb (13.0-17.5) gm/dL Hct 38.3 L (39.0-53.0) % MCV (80.0-100.0) fL RDW 15.6 H (11.5-15.5) % Lymphocytes # (1.0-4.8) k/uL ESR (0-15) mm/hr Sodium 136 L (137-145) mmol/L Carbon Dioxide 20 L (22-30) mmol/L BUN 34 H (9-20) mg/dL Creatinine 1.54 H (0.66-1.25) mg/dL BUN/Creatinine Ratio (12.00-20.00) Ratio Glucose 277 H (74-99) mg/dL POC Glucose (mg/dL) (75-99) mg/dL Calcium (8.7-10.3) mg/dL AST (14-35) U/L Urine Protein 1+ H (Negative) Urine Glucose (UA) 2+ H (Negative) Ur Leukocyte Esterase Moderate H (Negative) Urine RBC 7 H (0-5) /hpf Urine WBC 30 H (0-5) /hpf Urine Bacteria Occasional H (None) /hpf Hyaline Casts 21 H (0-2) /lpf Urine Mucus Rare H (None) /hpf 05/08/20 05/09/20 05/09/20 Range/Units 22:22 04:06 04:06 WBC 2.9 L (3.8-10.6) k/uL RBC 3.33 L (4.30-5.90) m/uL Hgb 11.4 L (13.0-17.5) gm/dL Hct 33.6 L (39.0-53.0) % MCV 100.8 H (80.0-100.0) fL RDW (11.5-15.5) % Lymphocytes # 0.6 L (1.0-4.8) k/uL ESR (0-15) mm/hr Sodium (137-145) mmol/L Carbon Dioxide (22-30) mmol/L BUN 30.0 H (9-20) mg/dL Creatinine (0.66-1.25) mg/dL BUN/Creatinine Ratio 25.00 H (12.00-20.00) Ratio Glucose 335 H (74-99) mg/dL POC Glucose (mg/dL) 230 H (75-99) mg/dL Calcium 8.1 L (8.7-10.3) mg/dL AST 13 L (14-35) U/L Urine Protein (Negative) Urine Glucose (UA) (Negative) Ur Leukocyte Esterase (Negative) Urine RBC (0-5) /hpf Urine WBC (0-5) /hpf Urine Bacteria (None) /hpf Hyaline Casts (0-2) /lpf Urine Mucus (None) /hpf 05/09/20 05/09/20 05/09/20 Range/Units 04:06 06:54 11:27 WBC (3.8-10.6) k/uL RBC (4.30-5.90) m/uL Hgb (13.0-17.5) gm/dL Hct (39.0-53.0) % MCV (80.0-100.0) fL RDW (11.5-15.5) % Lymphocytes # (1.0-4.8) k/uL ESR 48 H (0-15) mm/hr Sodium (137-145) mmol/L Carbon Dioxide (22-30) mmol/L BUN (9-20) mg/dL Creatinine (0.66-1.25) mg/dL BUN/Creatinine Ratio (12.00-20.00) Ratio Glucose (74-99) mg/dL POC Glucose (mg/dL) 276 H 210 H (75-99) mg/dL Calcium (8.7-10.3) mg/dL AST (14-35) U/L Urine Protein (Negative) Urine Glucose (UA) (Negative) Ur Leukocyte Esterase (Negative) Urine RBC (0-5) /hpf Urine WBC (0-5) /hpf Urine Bacteria (None) /hpf Hyaline Casts (0-2) /lpf Urine Mucus (None) /hpf Microbiology - Last 24 Hours (Table) 05/08/20 18:17 Urine Culture - Preliminary Urine,Voided CT scan - abdomen: report reviewed (Computed tomography scan of the abdomen with evidence of prior right hemicolectomy with no bowel obstruction noted a large right-sided nonobstructing renal calculi seen.) Assessment and Plan Assessment: 1. Nausea/vomiting/diarrhea: Patient with multiple medical comorbidities including a long-standing history of Crohn's disease of the small and right bowel with multiple surgeries in the past including right hemicolectomy previously on biologic therapy the patient has not been on recent therapy and is in the process of trying to obtain biologic therapy for treatment of his disease after a colonoscopy in 06/2019 showed moderate ileitis. He reports that his symptoms of nausea and vomiting and diarrhea have been present for one week with 2-3 vomitus episodes per day and 6-7 loose watery bowel movements without blood per rectum. He had associated diffuse abdominal pain. Computed tomography scan of the abdomen negative for any acute inflammation or obstructive process with evidence of prior right hemicolectomy and large right-sided nonobstructing renal calculi. Unclear symptoms are secondary to active disease is a patient did have elevation in ESR of 48 and CRP of 9.2, bacterial or viral gastroenteritis, or other etiology. 2. Crohn's disease of the small and large bowel: Long-standing history of bright 5-6 bowel surgeries in the past including right hemicolectomy. Patient follows up with GI in the outpatient setting. 3. Other medical comorbidities per primary team. Plan: Supportive care Okay for full liquid diet, advance as tolerated Continue to monitor CBC, BMP, LFTs Antiemetic therapy as needed Solumedroll 20 mg every 8 hours added, patient does need follow-up with GI after discharge and maintenance medicine, likely would benefit from biologic therapy given history of complicated Crohn's disease requiring surgery in the past and active ileitis noted on colonoscopy Thank you for allowing us to participate in the care of the patient we will continue to follow
--- NOTE | 2020-05-10 13:26 | P.PN ---
Subjective Progress Note Date: 05/10/20 Principal diagnosis: Abdominal pain, Crohn's exacerbation She was seen and examined sitting up in bed. He states his abdominal pain has improved some. He denies any nausea or vomiting. He had 2 loose bowel movements this morning which he reports were nonbloody. Objective - Vital Signs Vital signs: Vital Signs Temp 97.7 F 05/09/20 19:25 Pulse 72 05/10/20 11:38 Resp 18 05/09/20 08:00 BP 106/61 05/09/20 19:25 Pulse Ox 95 05/09/20 19:25 Intake & Output 05/09/20 05/10/20 05/10/20 18:59 06:59 18:59 Other: Voiding Method Toilet # Voids 1 1 - Exam General appearance: The patient is alert, oriented, appears in no acute distress. HET: Head is normocephalic and atraumatic. Conjunctiva pink. Sclera anicteric. Neck: Supple without lymphadenopathy. Abdomen: Soft, nontender, nondistended with bowel sounds. No guarding or rigidity. Extremities: Normal skin color and turgor. No pedal edema Neurological: No focal deficits. Alert and oriented 3. - Labs CBC & Chem 7: 05/09/20 04:06 05/10/20 04:39 Labs: Abnormal Lab Results - Last 24 Hours (Table) 05/09/20 05/09/20 05/09/20 Range/Units 04:06 16:45 20:27 Chloride (96-109) mmol/L BUN/Creatinine Ratio (12.00-20.00) Ratio Glucose (70-110) mg/dL POC Glucose (mg/dL) 195 H 170 H (75-99) mg/dL Calcium (8.7-10.3) mg/dL Vitamin B12 139.0 L (200.0-944.0) pg/mL 05/10/20 05/10/20 05/10/20 Range/Units 04:39 07:07 11:56 Chloride 110 H (96-109) mmol/L BUN/Creatinine Ratio 33.75 H (12.00-20.00) Ratio Glucose 149 H (70-110) mg/dL POC Glucose (mg/dL) 138 H 125 H (75-99) mg/dL Calcium 7.8 L (8.7-10.3) mg/dL Vitamin B12 (200.0-944.0) pg/mL Microbiology - Last 24 Hours (Table) 05/08/20 18:17 Urine Culture - Preliminary Urine,Voided Group D Enterococcus Assessment and Plan (1) Crohn's disease Narrative/Plan: A 62-year-old man who came in with complaints of abdominal pain in the periu mbilical area he states was sharp in nature with moderate severity and similar to his last Crohn's exacerbation. He states he's had nausea and vomiting and diarrhea 1 week with abdominal pain and decreased appetite. He denies any blood in his stool or bloody emesis. He states he's been having 6-7 loose bowel movements daily. His last colonoscopy was June 2019 which showed moderate ileitis with superficial ulcers and ileum and ileocolonic anastomosis. The patient has had multiple bowel surgeries in the past. He has not been on any biologic due to cost. He follows with Noreen Almodovar with gastroenterology and is working on possibly starting him on Cimzia. Current Visit: Yes Status: Acute Code(s): K50.90 - CROHN'S DISEASE, UNSPECIFIED, WITHOUT COMPLICATIONS SNOMED Code(s): 94650931 (2) Abdominal pain Current Visit: Yes Status: Acute Code(s): R10.9 - UNSPECIFIED ABDOMINAL PAIN SNOMED Code(s): 22044865 Plan: Will transition patient from IV Solu-Medrol to prednisone 40 mg taper dose Advance to full liquid diet Antiemetics as needed Patient may be discharged home from a gastroenterology standpoint with close follow-up. Patient is instructed to follow-up with Noreen Almodovar from gastroenterology in 1-[address] Lyle I agree with the dictator's note, documented as a scribe by Colleen Urrutia.
== END 2020-05-10 16:11 | disposition home or self-care (01) ==
LOC: EC 17:31 → 6NMEDSUR 19:27
PROVIDERS: ADMIT Internal Medicine; ATTEND Internal Medicine
DX: R10.84 Generalized abdominal pain (principal); K43.9 Ventral hernia without obstruction or gangrene; K50.90 Crohn's disease, unspecified, without complications; E86.1 Hypovolemia; E87.1 Hypo-osmolality and hyponatremia; N17.9 Acute kidney failure, unspecified; N20.0 Calculus of kidney; E53.8 Deficiency of other specified B group vitamins; J45.909 Unspecified asthma, uncomplicated; K21.9 Gastro-esophageal reflux disease without esophagitis; G40.909 Epilepsy, unspecified, not intractable, without status epilepticus; I10 Essential (primary) hypertension; F41.9 Anxiety disorder, unspecified; G47.00 Insomnia, unspecified; E86.0 Dehydration; D64.9 Anemia, unspecified; E11.9 Type 2 diabetes mellitus without complications; L98.9 Disorder of the skin and subcutaneous tissue, unspecified; M19.90 Unspecified osteoarthritis, unspecified site; E66.9 Obesity, unspecified; Z68.29 Body mass index [BMI] 29.0-29.9, adult; E78.5 Hyperlipidemia, unspecified; Z86.73 Personal history of transient ischemic attack (TIA), and cerebral infarction without residual deficits; Z86.718 Personal history of other venous thrombosis and embolism; Z87.442 Personal history of urinary calculi; Z86.14 Personal history of Methicillin resistant Staphylococcus aureus infection; Z90.49 Acquired absence of other specified parts of digestive tract; Z98.1 Arthrodesis status; Z87.891 Personal history of nicotine dependence; Z86.711 Personal history of pulmonary embolism; Z79.899 Other long term (current) drug therapy; Z79.4 Long term (current) use of insulin; Z79.51 Long term (current) use of inhaled steroids; Z88.5 Allergy status to narcotic agent; Z88.0 Allergy status to penicillin; Z88.8 Allergy status to other drugs, medicaments and biological substances; Z88.6 Allergy status to analgesic agent; Z91.038 Other insect allergy status; Z82.49 Family history of ischemic heart disease and other diseases of the circulatory system
CPT/HCPCS: 96376 ×3; 96361 ×3; 96372 ×2; 96374; 96375; 99285; 36415; 94640 ×4; 80053 ×2; 80048; 85652 ×2; 82607; 82150; 83605; 83690; 85025 ×2; 85610; 85730; 86140 ×2; 81001; 87086; 87077; 87186; 74176; G0378 ×3; J2270 ×3; J1644 ×2; J2920 ×2; J2930; C9113; 93005

== ENCOUNTER 2020-09-20 23:07 | Inpatient (IN) | payer MEDICARE ==
[2020-09-20] MEDS ORDERED: SODIUM CHLORIDE 0.9% 1,000 ML IV STA (23:50)
[2020-09-20] MEDS ORDERED: HYDROmorphone 1 MG/ML 1 ML SYRINGE IVP STA (23:50)
[2020-09-20] MEDS ORDERED: ONDANSETRON 4 MG/2 ML VIAL IVP STA (23:50)
[2020-09-21] MEDS ORDERED: diphenhydrAMINE 50 MG/ML 1 ML VIAL IVP STA (00:18)
[2020-09-21] MEDS ORDERED: METOCLOPRAMIDE 5 MG/ML 2 ML VIAL IVP STA (00:18)
[2020-09-21 00:24] LABS: Basophils # (A) 0.1 k/uL (0-0.2); Basophils % (A) 1 %; Eosinophils # (A) 0.1 k/uL (0-0.7); Eosinophils % (A) 2 %; HCT 35.7 % (39.0-53.0); HGB 11.8 gm/dL (13.0-17.5); Lymphocytes # (A) 2.2 k/uL (1.0-4.8); Lymphocytes % (A) 24 %; MCH 34.5 pg (25.0-35.0); MCHC 33.1 g/dL (31.0-37.0); Macrocytosis Moderate; Mean Platelet Volume 7.2; Monocytes # (A) 0.4 k/uL (0-1.0); Monocytes % (A) 5 %; Neutrophils # (A) 6.2 k/uL (1.3-7.7); Neutrophils % (A) 68 %; Platelet Count 272 k/uL (150-450); RBC 3.43 m/uL (4.30-5.90); RDW 15.9 % (11.5-15.5); WBC 9.1 k/uL (3.8-10.6)
[2020-09-21 00:30] LABS: MCV 104.2 fL (80.0-100.0)
[2020-09-21 00:35] LABS: ALT 18 U/L (4-49); AST 28 U/L (17-59); African American GFR (CKD) >90 (>60 ml/min/1.73 sqM); Albumin 4.3 g/dL (3.5-5.0); Alkaline Phosphatase 125 U/L (38-126); Anion Gap 10 mmol/L; Blood Urea Nitrogen 17 mg/dL (9-20); Calcium 9.5 mg/dL (8.4-10.2); Carbon Dioxide 24 mmol/L (22-30); Chloride 104 mmol/L (98-107); Glucose 160 mg/dL (74-99); Lipase 123 U/L (23-300); Non-African American GFR(CKD) 90 (>60 ml/min/1.73 sqM); Potassium 4.2 mmol/L (3.5-5.1); Sodium 138 mmol/L (137-145); Total Bilirubin 0.9 mg/dL (0.2-1.3); Total Protein 7.7 g/dL (6.3-8.2)
[2020-09-21 00:37] LABS: Appearance,Urine Cloudy (Clear); Bilirubin,Urine 1+ (Negative); Blood,Urine Negative (Negative); Cellular Casts,Urine 1 /lpf (0); Color,Urine Yellow; Glucose,Urine (UA) Negative (Negative); Granular Casts,Urine 3 /lpf (0); Hyaline Casts,Urine 5 /lpf (0-2); Ketones,Urine Negative (Negative); Leukocyte Esterase,Urine Large (Negative); Mucus,Urine Rare /hpf; Nitrite,Urine Negative (Negative); PH, Urine 5.5 (5.0-8.0); Protein,Urine 2+ (Negative); RBC,Urine 4 /hpf (0-5); Squamous Epithelial Cell,Urine 1 /hpf (0-4); WBC,Urine 43 /hpf (0-5)
--- NOTE | 2020-09-21 02:05 | CT ---
EXAM: CT Abdomen and Pelvis With Intravenous Contrast CLINICAL HISTORY: ITS.REASON CT Reason: abdominal pain TECHNIQUE: Axial computed tomography images of the abdomen and pelvis with intravenous contrast. CTDI is 23.47 mGy and DLP is 1092.3 mGy-cm. This CT exam was performed using one or more of the following dose reduction techniques: automated exposure control, adjustment of the mA and/or kV according to patient size, and/or use of iterative reconstruction technique. COMPARISON: 04/18/2020 FINDINGS: Lung bases: Mild bibasilar atelectasis ABDOMEN: Liver: Unremarkable. No mass. Gallbladder and bile ducts: Cholecystectomy. Central biliary dilation may reflect postcholecystectomy changes versus distal common duct obstruction. Similar to the prior. 15 mm common duct. Punctate hyperdensity within the distal common duct may be a small stone. Pancreas: Similar appearance of dilated pancreatic duct, 7 mm. Spleen: Unremarkable. No splenomegaly. Adrenals: Unremarkable. No mass. Kidneys and ureters: Stable nonobstructing right renal calculus, 13 mm. No hydronephrosis. Stomach and bowel: Right hemicolectomy stable. Multiple dilated small bowel loops, notably in the right lower quadrant. Some air-fluid levels. Fecalization of small bowel contents within the dilated loops in the right lower quadrant. Transition point likely in this region. Clustered appearance of these abnormal loops. Mild surrounding fat stranding and fluid. Closed loop obstruction/ischemic component not excluded. Small periumbilical hernias containing nondilated small bowel loops. Although in the vicinity of the transition point, this is not thought to be the cause of obstruction. PELVIS: Appendix: See above. Bladder: Unremarkable. No mass. Reproductive: Unremarkable as visualized. ABDOMEN and PELVIS: Intraperitoneal space: Unremarkable. No free air. No significant fluid collection. Bones/joints: L5-S1 fusion as on the prior. No acute fracture. No dislocation. Soft tissues: See above. Vasculature: Moderate atherosclerotic calcifications of the aorta, iliac arteries. No abdominal aortic aneurysm. Lymph nodes: Unremarkable. No enlarged lymph nodes. IMPRESSION: 1. Right hemicolectomy. Stable. 2. Small bowel obstruction with transition point in the right lower quadrant. Closed loop obstruction/ischemic component not excluded. Small periumbilical hernias containing nondilated small bowel loops. Although in the vicinity of the transition point, this is not thought to be the cause of obstruction. 3. Stable nonobstructing right renal calculus, 13 mm. No hydronephrosis. 4. Cholecystectomy. Central biliary dilation may reflect postcholecystectomy changes versus distal common duct obstruction. Similar to the prior. 15 mm common duct. Punctate hyperdensity within the distal common duct may be a small stone. Similar appearance of dilated pancreatic duct. Correlate and could consider MRCP/ERCP to assess for distal common duct obstruction. <MYCVCSECTION> Communications: 09/21/20 02:00 Call Doctor Regarding Above results, called Luci [facility] on 09/21 02:00 (-04:00)
[2020-09-21] MEDS ORDERED: methylPREDNISolone SOD SUCCI 125 MG/2 ML VIAL IV STA (02:30)
[2020-09-21] MEDS ORDERED: HYDROmorphone 1 MG/ML 1 ML SYRINGE IVP STA (02:30)
[2020-09-21] MEDS ORDERED: NALOXONE 0.4 MG/ML 1 ML VIAL IV PRN (02:46)
[2020-09-21] MEDS ORDERED: ONDANSETRON 4 MG/2 ML VIAL IVP PRN (02:46)
--- NOTE | 2020-09-21 02:53 | ED ---
Abdominal Pain HPI - General Source: patient Mode of arrival: wheelchair Limitations: no limitations <Luci Irene - Last Filed: 09/21/20 03:34> <Obed Yi - Last Filed: 09/30/20 01:56> - General Chief Complaint: Abdominal Pain Stated Complaint: Abdominal Pain Time Seen by Provider: 09/20/20 23:23 - History of Present Illness Initial Comments: 65-year-old male patient with past medical history significant for Crohn's disease status post right hemicolectomy presents to the emergency department today for evaluation of mid upper abdominal pain with vomiting and diarrhea that started yesterday. He denies any hematochezia, melena, or hematemesis. He denies any fever or chills. Denies any sick contacts or recent travel. States home medications are not helping. Generally sees a surgeon at [facility] and Dr. Wade is GI specialist. Patient denies any recent rash, cough, shortness of breath, chest pain, back pain, numbness, tingling, dizziness, weakness, hematuria, dysuria, urinary urgency, urinary frequency, headache, visual changes, or any other complaints. (Luci Irene) - Related Data Home Medications Medication Instructions Recorded Confirmed levETIRAcetam [Keppra] 500 mg PO DAILY 02/22/17 09/21/20 levETIRAcetam [Keppra] 1,000 mg PO HS 03/10/17 09/21/20 Insulin Lispro [humaLOG Kwikpen] 5 unit SQ AC-TID 04/26/17 09/21/20 Nitroglycerin Sl Tabs [Nitrostat] 0.4 mg SUBLINGUAL Q5M PRN 04/26/17 09/21/20 Albuterol Sulfate [Albuterol 2 puff INHALATION RT-Q4H PRN 01/21/20 09/21/20 Sulfate Hfa] Insulin Lispro [humaLOG Kwikpen] See Protocol SQ TID-W/MEALS 01/21/20 09/21/20 Budesonide/Formoterol Fumarate 2 puff INHALATION RT-BID 05/08/20 09/21/20 [Symbicort 160-4.5 Mcg Inhaler] Pantoprazole Sodium [Protonix] 40 mg PO DAILY 05/08/20 09/21/20 Promethazine [Phenergan] 25 mg PO DAILY PRN 05/08/20 09/21/20 Previous Rx's Medication Instructions Recorded predniSONE 10 mg PO DAILY #126 tab 09/27/20 Allergies Allergy/AdvReac Type Severity Reaction Status Date / Time aspirin Allergy Swelling Verified 09/21/20 10:04 nalbuphine HCl [From Nubain] Allergy Vomiting Verified 09/21/20 10:04 ondansetron HCl [From Zofran] Allergy Unknown Verified 09/21/20 10:04 penicillin G Allergy Rash/Hives Verified 09/21/20 10:04 venom-wasp [Wasp Venom] Allergy Anaphylaxis Verified 09/21/20 10:04 Review of Systems ROS Other: All systems not noted in ROS Statement are negative. <Luci Irene - Last Filed: 09/21/20 03:34> ROS Other: All systems not noted in ROS Statement are negative. <Obed Yi - Last Filed: 09/30/20 01:56> ROS Statement: Those systems with pertinent positive or pertinent negative responses have been documented in the HPI. Past Medical History Past Medical History: Asthma, CVA/TIA, Diabetes Mellitus, Deep Vein Thrombosis (DVT), GERD/Reflux, Osteoarthritis (OA), Skin Disorder Additional Past Medical History / Comment(s): HX OF KIDNEY STONES, CROHNS DISEASE, HX OF BLOOD CLOT RT ARM AND BEHIND RT KNEE, TIA/seizure/brain bleed 08/2016, see Dr Wright H&P, "spots of dry skin", hx anemia, september 2018 stone removed L kidney History of Any Multi-Drug Resistant Organisms: MRSA Date of last positivie culture/infection: 2006 MDRO Source:: nose Past Surgical History: Appendectomy, Back Surgery, Bowel Resection, Cholecystectomy, Heart Catheterization, Prostate Surgery Additional Past Surgical History / Comment(s): BOWEL RESECTION X 5, SPINAL SURGERIES X3, LEFT LOBECTOMY. lithotripsy, TURP, neck fusion. Past Anesthesia/Blood Transfusion Reactions: No Reported Reaction Past Psychological History: No Psychological Hx Reported Smoking Status: Former smoker Past Alcohol Use History: None Reported Past Drug Use History: None Reported - Past Family History Mother Family Medical History: Deep Vein Thrombosis (DVT) <Luci Irene - Last Filed: 09/21/20 03:34> General Exam Limitations: no limitations General appearance: alert, in no apparent distress, other (This is a well- developed, well-nourished adult male patient no acute distress. Vital signs upon presentation are temperature 97.8F, pulse 86, respirations 16, blood pressure 112/80, pulse ox 99% on room air.) Eye exam: Present: normal appearance, PERRL, EOMI. Absent: scleral icterus, conjunctival injection, periorbital swelling ENT exam: Present: normal exam, normal oropharynx, mucous membranes moist Respiratory exam: Present: normal lung sounds bilaterally. Absent: respiratory distress, wheezes, rales, rhonchi, stridor Cardiovascular Exam: Present: regular rate, normal rhythm, normal heart sounds. Absent: systolic murmur, diastolic murmur, rubs, gallop, clicks GI/Abdominal exam: Present: soft, tenderness (Midepigastric abdominal tenderness), normal bowel sounds. Absent: distended, guarding, rebound, rigid Neurological exam: Present: alert, oriented X3, CN II-XII intact Psychiatric exam: Present: normal affect, normal mood Skin exam: Present: warm, dry, intact, normal color. Absent: rash <Luci Irene - Last Filed: 09/21/20 03:34> Course Vital Signs 09/20/20 09/21/20 23:17 03:09 Temperature 97.8 F 97.8 F Pulse Rate 86 76 Respiratory 16 16 Rate Blood Pressure 112/80 121/89 O2 Sat by Pulse 99 99 Oximetry Medical Decision Making - Lab Data Result diagrams: 09/21/20 00:04 09/21/20 00:04 - Radiology Data Radiology results: report reviewed, image reviewed <Luci Irene - Last Filed: 09/21/20 03:34> - Lab Data Result diagrams: 09/27/20 05:52 09/27/20 05:52 <Obed Yi - Last Filed: 09/30/20 01:56> - Medical Decision Making 65-year-old male patient with past medical history significant for Crohn's disease with midepigastric abdominal pain, vomiting, diarrhea. Physical examination did reveal midepigastric tenderness. Labs reviewed and revealed normal white blood cell count, lactic acid 1.6. Early ribbon is normal. CT abdomen and pelvis was obtained and did show evidence for small bowel obstruction with transition point in the right lower quadrant, there is some changes that could be ischemic in nature. Also evidence for enlarged common bile duct with possible stone though bilirubin is normal patient has no right upper quadrant tenderness, CT reports that this wasn't much changed from previous. I did discuss the case with Dr. Emerson including findings on CT. He agrees to consult on the case. We will given steroid injection for possible crohn's excerbation. He will be admitted. Nothing by mouth. We discussed NG tube, patient refuses at this time. I did discuss that this would become necessary should he have any further vomiting. He is agreeable with this plan. Dr. Burris is accepting. Case discussed with my attending Dr. Yi. (Luci Irene) I saw this patient in conjunction with the physician corporate administrative assistant. I performed independent history and physical exam. Agree with case management. (Obed Yi) - Lab Data Lab Results 09/21/20 09/21/20 09/21/20 Range/Units 00:04 00:04 00:04 WBC 9.1 (3.8-10.6) k/uL RBC 3.43 L (4.30-5.90) m/uL Hgb 11.8 L (13.0-17.5) gm/dL Hct 35.7 L (39.0-53.0) % MCV 104.2 H (80.0-100.0) fL MCH 34.5 (25.0-35.0) pg MCHC 33.1 (31.0-37.0) g/dL RDW 15.9 H (11.5-15.5) % Plt Count 272 (150-450) k/uL MPV 7.2 Neutrophils % 68 % Lymphocytes % 24 % Monocytes % 5 % Eosinophils % 2 % Basophils % 1 % Neutrophils # 6.2 (1.3-7.7) k/uL Lymphocytes # 2.2 (1.0-4.8) k/uL Monocytes # 0.4 (0-1.0) k/uL Eosinophils # 0.1 (0-0.7) k/uL Basophils # 0.1 (0-0.2) k/uL Macrocytosis Moderate Sodium 138 (137-145) mmol/L Potassium 4.2 (3.5-5.1) mmol/L Chloride 104 (98-107) mmol/L Carbon Dioxide 24 (22-30) mmol/L Anion Gap 10 mmol/L BUN 17 (9-20) mg/dL Creatinine 0.88 (0.66-1.25) mg/dL Est GFR (CKD-EPI)AfAm >90 (>60 ml/min/1.73 sqM) Est GFR (CKD-EPI)NonAf 90 (>60 ml/min/1.73 sqM) Glucose 160 H (74-99) mg/dL Plasma Lactic Acid Jose Miguel (0.7-2.0) mmol/L Calcium 9.5 (8.4-10.2) mg/dL Total Bilirubin 0.9 (0.2-1.3) mg/dL AST 28 (17-59) U/L ALT 18 (4-49) U/L Alkaline Phosphatase 125 (38-126) U/L Total Protein 7.7 (6.3-8.2) g/dL Albumin 4.3 (3.5-5.0) g/dL Lipase 123 (23-300) U/L Urine Color Yellow Urine Appearance Cloudy (Clear) Urine pH 5.5 (5.0-8.0) Ur Specific [place] 1.030 (1.001-1.035) Urine Protein 2+ H (Negative) Urine Glucose (UA) Negative (Negative) Urine Ketones Negative (Negative) Urine Blood Negative (Negative) Urine Nitrite Negative (Negative) Urine Bilirubin 1+ H (Negative) Urine Urobilinogen 2.0 (<2.0) mg/dL Ur Leukocyte Esterase Large H (Negative) Urine RBC 4 (0-5) /hpf Urine WBC 43 H (0-5) /hpf Ur Squamous Epith Cells 1 (0-4) /hpf Cellular Casts 1 (0) /lpf Hyaline Casts 5 H (0-2) /lpf Granular Casts 3 (0) /lpf Urine Mucus Rare H (None) /hpf Coronavirus (PCR) (Not Detectd) 09/21/20 09/21/20 Range/Units 00:04 00:04 WBC (3.8-10.6) k/uL RBC (4.30-5.90) m/uL Hgb (13.0-17.5) gm/dL Hct (39.0-53.0) % MCV (80.0-100.0) fL MCH (25.0-35.0) pg MCHC (31.0-37.0) g/dL RDW (11.5-15.5) % Plt Count (150-450) k/uL MPV Neutrophils % % Lymphocytes % % Monocytes % % Eosinophils % % Basophils % % Neutrophils # (1.3-7.7) k/uL Lymphocytes # (1.0-4.8) k/uL Monocytes # (0-1.0) k/uL Eosinophils # (0-0.7) k/uL Basophils # (0-0.2) k/uL Macrocytosis Sodium (137-145) mmol/L Potassium (3.5-5.1) mmol/L Chloride (98-107) mmol/L Carbon Dioxide (22-30) mmol/L Anion Gap mmol/L BUN (9-20) mg/dL Creatinine (0.66-1.25) mg/dL Est GFR (CKD-EPI)AfAm (>60 ml/min/1.73 sqM) Est GFR (CKD-EPI)NonAf (>60 ml/min/1.73 sqM) Glucose (74-99) mg/dL Plasma Lactic Acid Jose Miguel 1.6 (0.7-2.0) mmol/L Calcium (8.4-10.2) mg/dL Total Bilirubin (0.2-1.3) mg/dL AST (17-59) U/L ALT (4-49) U/L Alkaline Phosphatase (38-126) U/L Total Protein (6.3-8.2) g/dL Albumin (3.5-5.0) g/dL Lipase (23-300) U/L Urine Color Urine Appearance (Clear) Urine pH (5.0-8.0) Ur Specific [place] (1.001-1.035) Urine Protein (Negative) Urine Glucose (UA) (Negative) Urine Ketones (Negative) Urine Blood (Negative) Urine Nitrite (Negative) Urine Bilirubin (Negative) Urine Urobilinogen (<2.0) mg/dL Ur Leukocyte Esterase (Negative) Urine RBC (0-5) /hpf Urine WBC (0-5) /hpf Ur Squamous Epith Cells (0-4) /hpf Cellular Casts (0) /lpf Hyaline Casts (0-2) /lpf Granular Casts (0) /lpf Urine Mucus (None) /hpf Coronavirus (PCR) Not Detected (Not Detectd) - Radiology Data CT abdomen and pelvis with contrast was obtained. Report reviewed in its entirety. Impression by Dr. Blanton shows right hemicolectomy. stable. Small bowel obstruction with transition point in right lower quadrant. Closed loop obstruction/ischemic component not excluded. Small periumbilical hernias containing nondilated small bowel loops. Although in the vicinity of the tr ansition point, this is not thought to be the cause of the obstruction. Stable nonobstructing right renal calculus, 13 mm. No hydronephrosis. Cholecystectomy. Central biliary dilatation may reflect postcholecystectomy changes versus distal common duct obstruction. Somewhat to the prior. 15 mm c ommon duct. Punctate hyperdensity within the distal common bile duct may be a small stone. Similar appearance of dilated pancreatic duct. Correlate could consider MRCP/ERCP to assess for distal common duct construction. (Luci Irene) Disposition Decision to Admit Reason: Admit from EC Decision Date: 09/21/20 Decision Time: 03:47 <Luci Irene - Last Filed: 09/21/20 03:34> <Obed Yi - Last Filed: 09/30/20 01:56> Clinical Impression: Small bowel obstruction, Exacerbation of Crohn's disease Disposition: ADMITTED IP TO THIS HOSP Condition: Serious
[2020-09-21] MEDS: SODIUM CHLORIDE 0.9% 1,000 ML IV SCH ×2 (03:12→19:12)
[2020-09-21] MEDS: HYDROmorphone 1 MG/ML 1 ML SYRINGE IVP PRN ×6 (05:27→22:22)
[2020-09-21] MEDS: METOCLOPRAMIDE 5 MG/ML 2 ML VIAL IVP SCH ×4 (05:27→23:24)
[2020-09-21 07:12] LABS: Glucose,Whole Blood 210 mg/dL (75-99)
--- NOTE | 2020-09-21 09:49 | P.GSCN ---
History of Present Illness Consult date: 09/21/20 Reason for Consult: Bowel obstruction History of present illness: 65-year-old male presents to the hospital with complaints of nausea vomiting and diarrhea. Patient was having symptoms of nausea and diarrhea for the last 5 days. [place] like a exacerbation of his Crohn's disease. Patient states usually he can modify his diet and his symptoms resolve this time however his symptoms persisted. In the ER he had a CAT scan showing evidence of proximal small bowel dilation consistent with bowel obstruction. Patient has a small hernia present that does not appear to be contributing to the obstruction. Patient has had 5 laparotomies in the past. The last one required an open abdomen. Most of his surgeries were performed at [facility]. He is currently in between Crohn's medications. He has been on multiple biologic medications in the past. He sees Dr. Navarro's office David Almodovar. No flatus overnight. No significant pain at this time. Review of Systems The patient denies any acute changes in vision or hearing, no dysphagia or odynophagia, no chest pain or shortness of breath, no dysuria or hematuria, no headache, no runny nose, no rectal bleeding or melena, no unexplained weight loss Past Medical History Past Medical History: Asthma, CVA/TIA, Diabetes Mellitus, Deep Vein Thrombosis (DVT), GERD/Reflux, Osteoarthritis (OA), Skin Disorder Additional Past Medical History / Comment(s): HX OF KIDNEY STONES, CROHNS DISEASE, HX OF BLOOD CLOT RT ARM AND BEHIND RT KNEE, TIA/seizure/brain bleed 08/2016, see Dr Wright H&P, "spots of dry skin", hx anemia, september 2018 stone removed L kidney History of Any Multi-Drug Resistant Organisms: MRSA Year Discovered:: 2006 MDRO Source:: nose Past Surgical History: Appendectomy, Back Surgery, Bowel Resection, Cholecystectomy, Heart Catheterization, Prostate Surgery Additional Past Surgical History / Comment(s): BOWEL RESECTION X 5, SPINAL SURGERIES X3, LEFT LOBECTOMY. lithotripsy, TURP, neck fusion. Past Anesthesia/Blood Transfusion Reactions: No Reported Reaction Past Psychological History: No Psychological Hx Reported Smoking Status: Former smoker Past Alcohol Use History: None Reported Additional Past Alcohol Use History / Comment(s): quit smoking 2005, smoked for > 30 yrs. 1-2 PPD Past Drug Use History: None Reported - Past Family History Mother Family Medical History: Deep Vein Thrombosis (DVT) Medications and Allergies Home Medications Medication Instructions Recorded Confirmed Type Atorvastatin [Lipitor] 20 mg PO HS 02/22/17 05/08/20 History levETIRAcetam [Keppra] 500 mg PO QAM 02/22/17 05/08/20 History levETIRAcetam [Keppra] 1,000 mg PO HS 03/10/17 05/08/20 History Albuterol Nebulized [Ventolin 2.5 mg INHALATION RT-Q4H PRN 04/26/17 05/08/20 History Nebulized] Insulin Lispro [humaLOG Kwikpen] 5 unit SQ AC-TID 04/26/17 05/08/20 History LORazepam [Ativan] 0.5 mg PO QID PRN 04/26/17 05/08/20 History Nitroglycerin Sl Tabs [Nitrostat] 0.4 mg SUBLINGUAL Q5M PRN 04/26/17 05/08/20 History Albuterol Sulfate [Albuterol 2 puff INHALATION RT-Q4H PRN 01/21/20 05/08/20 History Sulfate Hfa] Baclofen [Lioresal] 20 mg PO BID-W/MEALS 01/21/20 05/08/20 History Insulin Lispro [humaLOG Kwikpen] See Protocol SQ TID-W/MEALS 01/21/20 05/08/20 History Nortriptyline [Pamelor] 10 mg PO BID 01/21/20 05/08/20 History Zolpidem [Ambien] 10 mg PO HS PRN 01/21/20 05/08/20 History Insulin Glargine,Hum.rec.anlog 32 units SQ HS #0 01/23/20 05/08/20 Rx [Lantus Solostar] Metoprolol Tartrate [Lopressor] 25 mg PO BID #60 tab 01/23/20 05/08/20 Rx Budesonide [Budesonide EC] 9 mg PO DAILY 05/08/20 05/08/20 History Budesonide/Formoterol Fumarate 2 puff INHALATION RT-DAILY 05/08/20 05/08/20 History [Symbicort 160-4.5 Mcg Inhaler] Insulin Glargine,Hum.rec.anlog 20 unit SQ DAILY 05/08/20 05/08/20 History [Lantus Solostar] Naproxen 500 mg PO BID 05/08/20 05/08/20 History Pantoprazole Sodium [Protonix] 40 mg PO DAILY 05/08/20 05/08/20 History Promethazine [Phenergan] 25 mg PO DAILY PRN 05/08/20 05/08/20 History Tiotropium Cando [Spiriva 1 spray INHALATION RT-DAILY 05/08/20 05/08/20 History Respimat] Cyanocobalamin/Folic AC/Vit B6 1 each PO DAILY #60 tablet 05/10/20 Rx [Fabb Tablet] Dicyclomine [Bentyl] 20 mg PO QID PRN #60 tab 05/10/20 Rx predniSONE 10 mg PO DAILY #74 tab 05/10/20 Rx Allergies Allergy/AdvReac Type Severity Reaction Status Date / Time aspirin Allergy Swelling Verified 09/20/20 23:21 nalbuphine HCl [From Nubain] Allergy Vomiting Verified 09/20/20 23:21 ondansetron HCl [From Zofran] Allergy Unknown Verified 09/20/20 23:21 penicillin G Allergy Rash/Hives Verified 09/20/20 23:21 venom-wasp [Wasp Venom] Allergy Anaphylaxis Verified 09/20/20 23:21 Surgical - Exam Vital Signs Temp Pulse Resp BP Pulse Ox 97.8 F 86 16 112/80 99 09/20/20 23:17 09/20/20 23:17 09/20/20 23:17 09/20/20 23:17 09/20/20 23:17 Physical exam: General: Well-developed, well-nourished HEENT: Normocephalic, sclerae nonicteric Abdomen: Mild distention, large midline scar with small reducible hernia, mini mal tenderness Extremities: No edema Neuro: Alert and oriented Results - Labs 09/21/20 00:04 09/21/20 00:04 Abnormal Lab Results - Last 24 Hours (Table) 09/21/20 09/21/20 09/21/20 Range/Units 00:04 00:04 00:04 RBC 3.43 L (4.30-5.90) m/uL Hgb 11.8 L (13.0-17.5) gm/dL Hct 35.7 L (39.0-53.0) % MCV 104.2 H (80.0-100.0) fL RDW 15.9 H (11.5-15.5) % Glucose 160 H (74-99) mg/dL POC Glucose (mg/dL) (75-99) mg/dL Plasma Lactic Acid Jose Miguel (0.7-2.0) mmol/L Urine Protein 2+ H (Negative) Urine Bilirubin 1+ H (Negative) Ur Leukocyte Esterase Large H (Negative) Urine WBC 43 H (0-5) /hpf Hyaline Casts 5 H (0-2) /lpf Urine Mucus Rare H (None) /hpf 09/21/20 09/21/20 Range/Units 06:06 06:58 RBC (4.30-5.90) m/uL Hgb (13.0-17.5) gm/dL Hct (39.0-53.0) % MCV (80.0-100.0) fL RDW (11.5-15.5) % Glucose (74-99) mg/dL POC Glucose (mg/dL) 210 H (75-99) mg/dL Plasma Lactic Acid Jose Miguel 2.1 H* (0.7-2.0) mmol/L Urine Protein (Negative) Urine Bilirubin (Negative) Ur Leukocyte Esterase (Negative) Urine WBC (0-5) /hpf Hyaline Casts (0-2) /lpf Urine Mucus (None) /hpf Microbiology - Last 24 Hours (Table) 09/21/20 00:04 Urine Culture - Preliminary Urine,Voided Diabetes panel 09/21/20 Range/Units 00:04 Sodium 138 (137-145) mmol/L Potassium 4.2 (3.5-5.1) mmol/L Chloride 104 (98-107) mmol/L Carbon Dioxide 24 (22-30) mmol/L BUN 17 (9-20) mg/dL Creatinine 0.88 (0.66-1.25) mg/dL Glucose 160 H (74-99) mg/dL Calcium 9.5 (8.4-10.2) mg/dL AST 28 (17-59) U/L ALT 18 (4-49) U/L Alkaline Phosphatase 125 (38-126) U/L Total Protein 7.7 (6.3-8.2) g/dL Albumin 4.3 (3.5-5.0) g/dL Calcium panel 09/21/20 Range/Units 00:04 Calcium 9.5 (8.4-10.2) mg/dL Albumin 4.3 (3.5-5.0) g/dL Pituitary panel 09/21/20 Range/Units 00:04 Sodium 138 (137-145) mmol/L Potassium 4.2 (3.5-5.1) mmol/L Chloride 104 (98-107) mmol/L Carbon Dioxide 24 (22-30) mmol/L BUN 17 (9-20) mg/dL Creatinine 0.88 (0.66-1.25) mg/dL Glucose 160 H (74-99) mg/dL Calcium 9.5 (8.4-10.2) mg/dL Adrenal panel 09/21/20 Range/Units 00:04 Sodium 138 (137-145) mmol/L Potassium 4.2 (3.5-5.1) mmol/L Chloride 104 (98-107) mmol/L Carbon Dioxide 24 (22-30) mmol/L BUN 17 (9-20) mg/dL Creatinine 0.88 (0.66-1.25) mg/dL Glucose 160 H (74-99) mg/dL Calcium 9.5 (8.4-10.2) mg/dL Total Bilirubin 0.9 (0.2-1.3) mg/dL AST 28 (17-59) U/L ALT 18 (4-49) U/L Alkaline Phosphatase 125 (38-126) U/L Total Protein 7.7 (6.3-8.2) g/dL Albumin 4.3 (3.5-5.0) g/dL Assessment and Plan (1) Small bowel obstruction Narrative/Plan: 65-year-old male with presentation consistent with exacerbation of Crohn's with small bowel obstruction possibly secondary to stricture or adhesions. Begin IV Solu-Medrol. We'll consult GI when they are back on Wednesday. Keep nothing by mouth with nasogastric tube suction. Repeat abdominal x-rays and labs tomorrow. Will follow. Current Visit: Yes Status: Acute Code(s): K56.609 - UNSP INTESTNL OBST, UNSP TO PARTIAL VERSUS COMPLETE OBST SNOMED Code(s): 182413696
[2020-09-21 11:50] LABS: Glucose,Whole Blood 219 mg/dL (75-99)
[2020-09-21] MEDS: methylPREDNISolone SOD SUCCI 40 MG/ML 1 ML VIAL IV SCH ×3 (12:10→23:24)
[2020-09-21] MEDS: INSULIN ASPART (NovoLOG) 100 UNIT/ML VIAL SQ SCH ×4 (12:10→20:56)
[2020-09-21] MEDS ORDERED: PANTOPRAZOLE 40 MG TABLET PO SCH (12:45)
--- NOTE | 2020-09-21 15:57 | P.HPIM ---
History of Present Illness H&P Date: 09/21/20 Chief Complaint: Abdominal pain nausea vomiting and diarrhea Mr. Hickey is a 65-year-old male with past medical history of asthma, CVA/TIA, diabetes mellitus, DVT, GERD, osteoarthritis, nephrolithiasis, Crohn's disease coming into the hospital with a chief complaint of abdominal pain nausea vomiting and diarrhea for the past couple of days. Patient states that he has history of Crohn's disease and whenever he has exacerbation of his Crohn's disease he would be having nausea vomiting and diarrhea and he thinks it is one of those episodes. Patient denies having any fevers chills or rigors. He denies having any blood in his stools. Patient denies throwing up blood. Denies having any chest pain or palpitations. No cough or difficulty in breathing. No swelling of his lower extremities. He mentions that he had multiple laparotomies done in the past. Patient has been on biologic agents but has been off of them for the past few months. He states he follows with GI Dr. Wade. In the ER, patient's vitals at the time of admission temperature 97.8, heart rat e 86, respiratory 16, blood pressure 112.8, saturating at 99% on room air. He had labs done showing white count of 9.1, hemoglobin 11.8, platelets 272. Sodium 138, potassium 4.2, chloride 104, bicarbonate 24, BUN 17, creatinine 0.88. Lactic acid of 2.1. Urine analysis negative for nitrites and positive for large leukocyte esterase. 43 WBCs. Coronavirus PCR is negative. Urine cultures pending. Patient had a CAT scan of his abdomen and pelvis showing right hemicolectomy, small bowel obstruction with transition point in the right lower quadrant, stable nonobstructing right renal calculus 13 mm no hydronephrosis. 15 mm common bile duct and punctate hyperdensities within the distal common duct that may be a small stone. Similar appearance of dilated pancreatic duct. Review of Systems Review of systems CONSTITUTIONAL: No fever, no malaise, no fatigue. HEENT: No recent visual problems or hearing problems. Denied any sore throat. CARDIOVASCULAR: No orthopnea, PND, no palpitations, no syncope. PULMONARY: No shortness of breath, no cough, no hemoptysis. GASTROINTESTINAL: As per HPI NEUROLOGICAL: No headaches, no weakness, no numbness. HEMATOLOGICAL: Denies any bleeding or petechiae. GENITOURINARY: Denies any burning micturition, frequency, or urgency. MUSCULOSKELETAL/RHEUMATOLOGICAL: Denies any joint pain, swelling, or any muscle pain. ENDOCRINE: Denies any polyuria or polydipsia. Past Medical History Past Medical History: Asthma, CVA/TIA, Diabetes Mellitus, Deep Vein Thrombosis (DVT), GERD/Reflux, Osteoarthritis (OA), Skin Disorder Additional Past Medical History / Comment(s): HX OF KIDNEY STONES, CROHNS DISEASE, HX OF BLOOD CLOT RT ARM AND BEHIND RT KNEE, TIA/seizure/brain bleed 08/2016, see Dr Wright H&P, "spots of dry skin", hx anemia, september 2018 stone removed L kidney History of Any Multi-Drug Resistant Organisms: MRSA Date of last positivie culture/infection: 2006 MDRO Source:: nose Past Surgical History: Appendectomy, Back Surgery, Bowel Resection, Cho lecystectomy, Heart Catheterization, Prostate Surgery Additional Past Surgical History / Comment(s): BOWEL RESECTION X 5, SPINAL SURGERIES X3, LEFT LOBECTOMY. lithotripsy, TURP, neck fusion. Past Anesthesia/Blood Transfusion Reactions: No Reported Reaction Past Psychological History: No Psychological Hx Reported Smoking Status: Former smoker Past Alcohol Use History: None Reported Additional Past Alcohol Use History / Comment(s): quit smoking 2005, smoked for > 30 yrs. 1-2 PPD Past Drug Use History: None Reported - Past Family History Mother Family Medical History: Deep Vein Thrombosis (DVT) Medications and Allergies Home Medications Medication Instructions Recorded Confirmed Type levETIRAcetam [Keppra] 500 mg PO DAILY 02/22/17 09/21/20 History levETIRAcetam [Keppra] 1,000 mg PO HS 03/10/17 09/21/20 History Insulin Lispro [humaLOG Kwikpen] 5 unit SQ AC-TID 04/26/17 09/21/20 History Nitroglycerin Sl Tabs [Nitrostat] 0.4 mg SUBLINGUAL Q5M PRN 04/26/17 09/21/20 History Albuterol Sulfate [Albuterol 2 puff INHALATION RT-Q4H PRN 01/21/20 09/21/20 History Sulfate Hfa] Baclofen [Lioresal] 20 mg PO BID-W/MEALS 01/21/20 09/21/20 History Insulin Lispro [humaLOG Kwikpen] See Protocol SQ TID-W/MEALS 01/21/20 09/21/20 History Nortriptyline [Pamelor] 10 mg PO BID 01/21/20 09/21/20 History Budesonide/Formoterol Fumarate 2 puff INHALATION RT-BID 05/08/20 09/21/20 History [Symbicort 160-4.5 Mcg Inhaler] Naproxen 500 mg PO BID 05/08/20 09/21/20 History Pantoprazole Sodium [Protonix] 40 mg PO DAILY 05/08/20 09/21/20 History Promethazine [Phenergan] 25 mg PO DAILY PRN 05/08/20 09/21/20 History Allergies Allergy/AdvReac Type Severity Reaction Status Date / Time aspirin Allergy Swelling Verified 09/21/20 10:04 nalbuphine HCl [From Nubain] Allergy Vomiting Verified 09/21/20 10:04 ondansetron HCl [From Zofran] Allergy Unknown Verified 09/21/20 10:04 penicillin G Allergy Rash/Hives Verified 09/21/20 10:04 venom-wasp [Wasp Venom] Allergy Anaphylaxis Verified 09/21/20 10:04 Physical Exam Vitals: Vital Signs Temp Pulse Pulse Resp BP BP Pulse Ox 09/21/20 07:50 85 18 09/21/20 07:05 98.2 F 85 18 120/75 94 L 09/21/20 03:58 98.3 F 64 17 115/68 94 L 09/21/20 03:09 97.8 F 76 16 121/89 99 09/20/20 23:17 97.8 F 86 16 112/80 99 Intake and Output 09/20/20 09/21/20 09/21/20 22:59 06:59 14:59 Other: Voiding Method Toilet # Voids 0 0 Weight 84.822 kg GENERAL: The patient is alert and oriented x3, not in any acute distress. Well developed, well nourished. HEENT: Pupils are round and equally reacting to light. EOMI. No scleral icterus. No conjunctival pallor. Normocephalic, atraumatic. No pharyngeal erythema. No thyromegaly. CARDIOVASCULAR: S1 and S2 present. No murmurs, rubs, or gallops. PULMONARY: Chest is clear to auscultation, no wheezing or crackles. -ABDOMEN: Midline abdominal scar with small reducible hernia . Soft, mild abdominal tenderness, no rebound tenderness or guarding, nondistended, normoactive bowel sounds. MUSCULOSKELETAL: No joint swelling or deformity. EXTREMITIES: No cyanosis, clubbing, or pedal edema. NEUROLOGICAL: Gross neurological examination did not reveal any focal deficits. SKIN: No rashes. no petechiae. Results CBC & Chem 7: 09/21/20 00:04 09/21/20 00:04 Labs: Abnormal Lab Results - Last 24 Hours (Table) 09/21/20 09/21/20 09/21/20 Range/Units 00:04 00:04 00:04 RBC 3.43 L (4.30-5.90) m/uL Hgb 11.8 L (13.0-17.5) gm/dL Hct 35.7 L (39.0-53.0) % MCV 104.2 H (80.0-100.0) fL RDW 15.9 H (11.5-15.5) % Glucose 160 H (74-99) mg/dL POC Glucose (mg/dL) (75-99) mg/dL Plasma Lactic Acid Jose Miguel (0.7-2.0) mmol/L Urine Protein 2+ H (Negative) Urine Bilirubin 1+ H (Negative) Ur Leukocyte Esterase Large H (Negative) Urine WBC 43 H (0-5) /hpf Hyaline Casts 5 H (0-2) /lpf Urine Mucus Rare H (None) /hpf 09/21/20 09/21/20 09/21/20 Range/Units 06:06 06:58 11:48 RBC (4.30-5.90) m/uL Hgb (13.0-17.5) gm/dL Hct (39.0-53.0) % MCV (80.0-100.0) fL RDW (11.5-15.5) % Glucose (74-99) mg/dL POC Glucose (mg/dL) 210 H 219 H (75-99) mg/dL Plasma Lactic Acid Jose Miguel 2.1 H* (0.7-2.0) mmol/L Urine Protein (Negative) Urine Bilirubin (Negative) Ur Leukocyte Esterase (Negative) Urine WBC (0-5) /hpf Hyaline Casts (0-2) /lpf Urine Mucus (None) /hpf Microbiology - Last 24 Hours (Table) 09/21/20 00:04 Urine Culture - Preliminary Urine,Voided Thrombosis Risk Factor Assmnt - Choose All That Apply Any of the Below Risk Factors Present?: Yes Each Factor Represents 1 point: Obesity (BMI >25) Other Risk Factors: Yes Each Risk Factor Represents 2 Points: Age 61-74 years Other congenital or acquired thrombophilia - If yes, enter type in comment: No Thrombosis Risk Factor Assessment Total Risk Factor Score: 3 Thrombosis Risk Factor Assessment Level: Moderate Risk Assessment and Plan Assessment: ASSESSMENT -Abdominal pain with vomiting and diarrhea- probably due to exacerbation of Crohn's with small bowel obstruction due to strictures and medications -Lactic acidosis - probably due to above - continue with IV fluids -Incidental finding of right-sided nephrolithiasis nonobstructive doesn't appear to be causing any symptoms at this time no further intervention -CVA/TIA in the past - history of DVT in the past -Gastroesophageal reflux disease -Asthma without any acute exacerbation -Seizure disorder for which patient is on Keppra which will be continued -Hypertension -DVT prophylaxis with sub cutaneous heparin PLAN: Patient has been started on IV fluids, will be continued. Nothing by mouth for now. He has been started on IV Solu-Medrol for exacerbation of Crohn' s disease. Patient has been restarted on his home medications. Heparin for DVT prophylaxis. Protonix for GI prophylaxis. Further recommendations to follow depending on the progress of the patient.
[2020-09-21] MEDS: levETIRAcetam 500 MG TAB PO SCH ×2 (16:15→20:56)
[2020-09-21] MEDS: HEPARIN SODIUM,PORCINE/PF 5,000 UNIT/0.5 ML SYRINGE SQ SCH ×2 (16:15→23:24)
[2020-09-21 16:50] LABS: Glucose,Whole Blood 181 mg/dL (75-99)
[2020-09-21] MEDS ORDERED: BACLOFEN 10 MG TAB PO SCH (17:30)
[2020-09-21] MEDS: SYMBICORT 160-4.5 MCG INHALER INHALATION SCH (19:14)
[2020-09-21 20:14] LABS: Glucose,Whole Blood 189 mg/dL (75-99)
[2020-09-21] MEDS: PANTOPRAZOLE 40 MG/10 ML VIAL IVP SCH (20:57)
[2020-09-21] MEDS ORDERED: NORTRIPTYLINE 10 MG CAP PO SCH (21:00)
[2020-09-22] MEDS: HYDROmorphone 1 MG/ML 1 ML SYRINGE IVP PRN ×8 (01:25→23:59)
[2020-09-22] MEDS: METOCLOPRAMIDE 5 MG/ML 2 ML VIAL IVP SCH ×4 (04:53→23:59)
[2020-09-22] MEDS: SODIUM CHLORIDE 0.9% 1,000 ML IV SCH ×2 (04:54→19:57)
[2020-09-22 07:03] LABS: Glucose,Whole Blood 189 mg/dL (75-99)
[2020-09-22] MEDS: SYMBICORT 160-4.5 MCG INHALER INHALATION SCH ×2 (07:48→19:24)
[2020-09-22] MEDS: HEPARIN SODIUM,PORCINE/PF 5,000 UNIT/0.5 ML SYRINGE SQ SCH ×3 (07:54→23:58)
[2020-09-22] MEDS: INSULIN ASPART (NovoLOG) 100 UNIT/ML VIAL SQ SCH ×7 (07:54→21:02)
[2020-09-22] MEDS: levETIRAcetam 500 MG TAB PO SCH ×2 (07:55→21:01)
[2020-09-22] MEDS: PANTOPRAZOLE 40 MG/10 ML VIAL IVP SCH ×2 (07:55→21:01)
[2020-09-22] MEDS: methylPREDNISolone SOD SUCCI 40 MG/ML 1 ML VIAL IV SCH ×3 (07:55→23:59)
--- NOTE | 2020-09-22 09:51 | P.PN ---
Subjective Progress Note Date: 09/22/20 Principal diagnosis: Small bowel obstruction Patient says he is doing about the same today. He did have a small bowel movement. Says his abdominal pain is present in the epigastrium at this point. He vomited once last night. Today's x-rays show mostly colonic air. Morning l abs pending. Objective - Vital Signs Vital signs: Vital Signs Temp 97.6 F 09/22/20 07:19 Pulse 82 09/22/20 07:34 Resp 16 09/22/20 07:34 BP 116/59 09/22/20 07:19 Pulse Ox 97 09/22/20 07:19 Intake & Output 09/21/20 09/22/20 09/22/20 18:59 06:59 18:59 Intake Total 600 30 Balance 600 30 Intake: Intake, IV Titration 600 Amount Sodium Chloride 0.9% 1, 600 000 ml @ 75 mls/hr IV . [id number] [facility] Rx#:[id number] Oral 30 Other: Voiding Method Toilet Toilet Toilet # Voids 3 2 # Bowel Movements 1 - Exam Abdomen: Soft, nondistended, mild epigastric tenderness, reducible hernia - Labs CBC & Chem 7: 09/21/20 00:04 09/21/20 00:04 Labs: Abnormal Lab Results - Last 24 Hours (Table) 09/21/20 09/21/20 09/21/20 Range/Units 11:48 16:48 20:12 POC Glucose (mg/dL) 219 H 181 H 189 H (75-99) mg/dL 09/22/20 Range/Units 07:00 POC Glucose (mg/dL) 189 H (75-99) mg/dL Microbiology - Last 24 Hours (Table) 09/21/20 00:04 Urine Culture - Preliminary Urine,Voided Assessment and Plan (1) Small bowel obstruction Narrative/Plan: Patient seems to be gradually improving. Continue IV Solu-Medrol. We'll consult GI to see patient in a.m. Keep nothing by mouth except for ice chips at this point. Current Visit: Yes Status: Acute Code(s): K56.609 - UNSP INTESTNL OBST, UNSP TO PARTIAL VERSUS COMPLETE OBST SNOMED Code(s): 753392968
--- NOTE | 2020-09-22 10:20 | XR ---
EXAMINATION TYPE: XR abdomen 2V DATE OF EXAM: 09/22/2020 CLINICAL DATA: 65-year-old male follow-up bowel obstruction, [facility] COMPARISON: CT 09/21/2020 FINDINGS: Small effusions. No evidence for free intraperitoneal air. Multiple colonic air-fluid levels persist. Mildly dilated small bowel in the right upper to mid abdom en with air-fluid levels measuring 4.1 cm. Review of the patient's CT shows that the sigmoid colon is redundant extending up into the right upper quadrant. This seems to have been prior right hemicolect leatha. L5-S1 posterior lumbar fusion with laminectomies. 1.2 cm right renal calculus. IMPRESSION: Consider persistent but improving small bowel obstruction. Increasing air within the colon but with a ir-fluid levels. A couple small bowel loops remain mildly dilated in the right upper quadrant measuri ng up to 4.1 cm versus 4.9 cm on the 09/21/2020 CT. Review of the patient's recent CT suggests prior r ight hemicolectomy and a redundant sigmoid colon extending into the right upper quadrant. Small bilateral pleural effusions.
[2020-09-22 11:28] LABS: Glucose,Whole Blood 150 mg/dL (75-99)
[2020-09-22 12:39] LABS: African American GFR (CKD) 107.9 (60.0-200.0); Anion Gap 9.7 mmol/L (4.00-12.00); BUN/Creat Ratio 31.25 Ratio (12.00-20.00); Calcium 8.1 mg/dL (8.7-10.3); Carbon Dioxide 24.3 mmol/L (21.6-31.8); HCT 27.9 % (39.6-50.0); HGB 9.3 g/dL (13.0-17.0); MCH 35.1 pg (27.0-32.0); MCHC 33.3 g/dL (32.0-37.0); MCV 105.3 fL (80.0-97.0); Mean Platelet Volume 10.1 fL (9.5-12.2); Non-African American GFR(CKD) 93.1 (60.0-200.0); Platelet Count 219 X 10*3/uL (140-440); Potassium 4.1 mmol/L (3.5-5.5); RBC 2.65 X 10*6/uL (4.40-5.60); RDW 14.2 % (11.5-14.5); WBC 11.83 X 10*3/uL (4.50-10.00)
[2020-09-22 13:10] LABS: Basophils # (A) 0 X 10*3/uL (0.00-0.10); Basophils % (A) 0 %; Eosinophils # (A) 0 X 10*3/uL (0.04-0.35); Eosinophils % (A) 0 %; Lymphocytes # (A) 0.85 X 10*3/uL (0.90-5.00); Lymphocytes % (A) 7.2 %; Macrocytosis (M) 2+; Monocytes # (A) 0.35 X 10*3/uL (0.20-1.00); Neutrophils # (A) 10.56 X 10*3/uL (1.80-7.70); Neutrophils % (A) 89.2 %
--- NOTE | 2020-09-22 16:03 | P.PN ---
Subjective Progress Note Date: 09/22/20 Principal diagnosis: Acute exacerbation of Crohn's disease Mr. Hickey is a 65-year-old male with past medical history of asthma, CVA/TIA, diabetes mellitus, DVT, GERD, osteoarthritis, nephrolithiasis, Crohn's disease coming into the hospital with a chief complaint of abdominal pain nausea vomiting and diarrhea for the past couple of days. Patient states that he has history of Crohn's disease and whenever he has exacerbation of his Crohn's disease he would be having nausea vomiting and diarrhea and he thinks it is one of those episodes. Patient denies having any fevers chills or rigors. He denies having any blood in his stools. Patient denies throwing up blood. Den ies having any chest pain or palpitations. No cough or difficulty in breathing. No swelling of his lower extremities. He mentions that he had multiple laparotomies done in the past. Patient has been on biologic agents but has been off of them for the past few months. He states he follows with GI Dr. Wade. In the ER, patient's vitals at the time of admission temperature 97.8, heart rate 86, respiratory 16, blood pressure 112.8, saturating at 99% on room air. He had labs done showing white count of 9.1, hemoglobin 11.8, platelets 272. Sodium 138, potassium 4.2, chloride 104, bicarbonate 24, BUN 17, creatinine 0.88. Lactic acid of 2.1. Urine analysis negative for nitrites and positive for large leukocyte esterase. 43 WBCs. Coronavirus PCR is negative. Urine cultures pending. Patient had a CAT scan of his abdomen and pelvis showing right hemicolectomy, small bowel obstruction with transition point in the right lower quadrant, stable nonobstructing right renal calculus 13 mm no hydronephrosis. 15 mm common bile duct and punctate hyperdensities within the distal common duct that may be a small stone. Similar appearance of dilated pancreatic duct. On 09/22/2020 - patient is seen and examined at the bedside. Patient states his abdominal pain is mostly in the epigastric area and states that he threw up once last night. Denies any blood in his vomitus. He states that he had a small bowel movement, no diarrhea, no blood. Patient denies having any fevers chills or rigors. No chest pain or palpitations. No cough or difficulty in breathing. No dysuria or hematuria. On reviewing his vitals temperature 97.6, ultrasound of abdomen respiratory rate, blood pressure 119/70, saturating at 97% on room air. Reviewing her labs from this morning white count of 11.8 hemoglobin 9.3, macrocytosis with MCV of 105, platelets adequate at 219. Sodium 143, duration 4.1, chloride 109, bicarbonate 24, BUN 25, creatinine 0.8. Abdominal x-ray from this morning showing persistent but improving small bowel obstruction and increasing it within the colon. Active Medications Albuterol Sulfate (Albuterol Nebulized 2.5 Mg/3 Ml) 2.5 mg INHALATION RT-Q4H PRN PRN Reason: Shortness Of Breath Budesonide/Formoterol Fumarate (Symbicort 160-4.5 Mcg Inhaler) 2 puff INHALATION RT-BID [facility] [place] Last Admin: 09/22/20 07:48 Dose: Not Given Documented by: Heparin Sodium (Porcine) (Heparin Sodium,Porcine/Pf 5,000 Unit/0.5 Ml Syringe) 5,000 unit SQ Q8HR [facility] [place] Last Admin: 09/22/20 07:54 Dose: 5,000 unit Documented by: Hydromorphone HCl (Hydromorphone 1 Mg/Ml 1 Ml Syringe) 1 mg IVP Q3HR PRN PRN Reason: Severe Pain Last Admin: 09/22/20 14:57 Dose: 1 mg Documented by: Sodium Chloride (Saline 0.9%) 1,000 mls @ 75 mls/hr IV .[id number] [facility] [place] Last Admin: 09/22/20 04:54 Dose: 75 mls/hr Documented by: Insulin Aspart (Insulin Aspart (Novolog) 100 Unit/Ml Vial) 0 unit SQ ACHS [facility] [place]; Protocol Last Admin: 09/22/20 13:18 Dose: Not Given Documented by: Insulin Aspart (Insulin Aspart (Novolog) 100 Unit/Ml Vial) 5 unit SQ AC-TID [facility] [place] Last Admin: 09/22/20 11:56 Dose: 5 unit Documented by: Levetiracetam (Levetiracetam 500 Mg Tab) 500 mg PO DAILY [facility] [place] Last Admin: 09/22/20 07:55 Dose: 500 mg Documented by: Levetiracetam (Levetiracetam 500 Mg Tab) 1,000 mg PO HS [facility] [place] Last Admin: 09/21/20 20:56 Dose: 1,000 mg Documented by: Methylprednisolone Sodium Succinate (Methylprednisolone Sod Succi 40 Mg/Ml 1 Ml Vial) 40 mg IV Q8HR [facility] [place] Last Admin: 09/22/20 07:55 Dose: 40 mg Documented by: Metoclopramide HCl (Metoclopramide 5 Mg/Ml 2 Ml Vial) 10 mg IVP Q6HR [facility] [place] Last Admin: 09/22/20 11:55 Dose: 10 mg Documented by: Naloxone HCl (Naloxone 0.4 Mg/Ml 1 Ml Vial) 0.2 mg IV Q2M PRN PRN Reason: Opioid Reversal Pantoprazole Sodium (Pantoprazole 40 Mg/10 Ml Vial) 40 mg IVP BID [facility] [place] Last Admin: 09/22/20 07:55 Dose: 40 mg Documented by: Objective - Vital Signs Vital signs: Vital Signs Temp 97.6 F 09/22/20 13:59 Pulse 75 09/22/20 13:59 Resp 18 09/22/20 13:59 BP 119/70 09/22/20 13:59 Pulse Ox 97 09/22/20 13:59 Intake & Output 09/21/20 09/22/20 09/22/20 18:59 06:59 18:59 Intake Total 600 30 Balance 600 30 Intake: Intake, IV Titration 600 Amount Sodium Chloride 0.9% 1, 600 000 ml @ 75 mls/hr IV . [id number] [facility] Rx#:[id number] Oral 30 Other: Voiding Method Toilet Toilet Toilet # Voids 3 2 # Bowel Movements 1 - Exam GENERAL: The patient is alert and oriented x3, not in any acute distress. Well developed, well nourished. HEENT: Pupils are round and equally reacting to light. EOMI. No scleral icterus. No conjunctival pallor. CARDIOVASCULAR: S1 and S2 present. No murmurs, rubs, or gallops. PULMONARY: Chest is clear to auscultation, no wheezing or crackles. -ABDOMEN: Midline abdominal scar with small reducible hernia . Soft, mild abdominal tenderness, no rebound tenderness or guarding, nondistended, normoactive bowel sounds. MUSCULOSKELETAL: No joint swelling or deformity. EXTREMITIES: No cyanosis, clubbing, or pedal edema. NEUROLOGICAL: Gross neurological examination did not reveal any focal deficits. SKIN: No rashes. no petechiae. - Labs CBC & Chem 7: 09/22/20 07:17 09/22/20 07:17 Labs: Abnormal Lab Results - Last 24 Hours (Table) 09/21/20 09/21/20 09/22/20 Range/Units 16:48 20:12 07:00 WBC (4.50-10.00) X 10*3/uL RBC (4.40-5.60) X 10*6/uL Hgb (13.0-17.0) g/dL Hct (39.6-50.0) % MCV (80.0-97.0) fL MCH (27.0-32.0) pg Immature Gran # (0.00-0.04) X 10*3/uL Neutrophils # (1.80-7.70) X 10*3/uL Lymphocytes # (0.90-5.00) X 10*3/uL Eosinophils # (0.04-0.35) X 10*3/uL BUN/Creatinine Ratio (12.00-20.00) Ratio Glucose (70-110) mg/dL POC Glucose (mg/dL) 181 H 189 H 189 H (75-99) mg/dL Calcium (8.7-10.3) mg/dL 09/22/20 09/22/20 09/22/20 Range/Units 07:17 07:17 11:26 WBC 11.83 H (4.50-10.00) X 10*3/uL RBC 2.65 L (4.40-5.60) X 10*6/uL Hgb 9.3 L (13.0-17.0) g/dL Hct 27.9 L (39.6-50.0) % MCV 105.3 H (80.0-97.0) fL MCH 35.1 H (27.0-32.0) pg Immature Gran # 0.07 H (0.00-0.04) X 10*3/uL Neutrophils # 10.56 H (1.80-7.70) X 10*3/uL Lymphocytes # 0.85 L (0.90-5.00) X 10*3/uL Eosinophils # 0 L (0.04-0.35) X 10*3/uL BUN/Creatinine Ratio 31.25 H (12.00-20.00) Ratio Glucose 184 H (70-110) mg/dL POC Glucose (mg/dL) 150 H (75-99) mg/dL Calcium 8.1 L (8.7-10.3) mg/dL Microbiology - Last 24 Hours (Table) 09/21/20 00:04 Urine Culture - Preliminary Urine,Voided Group D Enterococcus Assessment and Plan Assessment: ASSESSMENT -Acute exacerbation of Crohn's with small bowel obstruction due to strictures -Lactic acidosis - probably due to above - continue with IV fluids - Urine cultures positive for group D enterococcus -Incidental finding of right-sided nephrolithiasis nonobstructive -CVA/TIA in the past - history of DVT in the past -Gastroesophageal reflux disease -Asthma without any acute exacerbation -Seizure disorder for which patient is on Keppra which will be continued -Hypertension -DVT prophylaxis with sub cutaneous heparin PLAN: Patient's urine culture is positive for group B enterococcus and patient has penicillin ALLERGIES, so we'll consult ID Dr. Park. Continue with IV fluids. He has been started on IV Solu-Medrol for exacerbation of Crohn's disease. Patient has been restarted on his home medications. Heparin for DVT prophylaxis. Protonix for GI prophylaxis. GI to evaluate the patient tomorrow morning. Further recommendations to follow depending on the progress of the patient.
[2020-09-22] MEDS ORDERED: VANCOMYCIN IV PER PHARMACY 1 EACH MISC MISCELLANE PRN (16:06)
[2020-09-22 16:40] LABS: Glucose,Whole Blood 146 mg/dL (75-99)
[2020-09-22] MEDS: VANCOMYCIN 1,500 MG in SODIUM CHLORIDE 0.9% 250 ML IVPB SCH (16:59)
[2020-09-22 17:05] LABS: Appearance,Urine Clear (Clear); Bilirubin,Urine Negative (Negative); Blood,Urine Moderate (Negative); Color,Urine Yellow; Glucose,Urine (UA) Negative (Negative); Ketones,Urine Negative (Negative); Leukocyte Esterase,Urine Negative (Negative); Nitrite,Urine Negative (Negative); Protein,Urine Negative (Negative); RBC,Urine 16 /hpf (0-5); Squamous Epithelial Cell,Urine <1 /hpf (0-4); Urobilinogen,Urine <2.0 mg/dL (<2.0); WBC,Urine 6 /hpf (0-5)
[2020-09-22] MEDS: ALBUTEROL NEBULIZED 2.5 MG/3 ML INHALATION PRN (19:24)
[2020-09-22 20:42] LABS: Glucose,Whole Blood 155 mg/dL (75-99)
[2020-09-23] MEDS: VANCOMYCIN 1,500 MG in SODIUM CHLORIDE 0.9% 250 ML IVPB SCH ×3 (00:51→19:00)
[2020-09-23] MEDS: HYDROmorphone 1 MG/ML 1 ML SYRINGE IVP PRN ×7 (03:14→21:23)
[2020-09-23] MEDS: METOCLOPRAMIDE 5 MG/ML 2 ML VIAL IVP SCH ×4 (06:06→23:57)
--- NOTE | 2020-09-23 06:22 | CONS ---
CONSULTATION DATE OF SERVICE: 09/22/2020 REASON FOR CONSULTATION: Enterococcus urinary tract infection. HISTORY OF PRESENT ILLNESS: The patient is a 65-year-old male, past medical history significant for Crohn's disease. The patient presented to [facility] ER 2 days ago for evaluation of abdominal pain, vomiting and diarrhea that started the day before presentation to the hospital. The patient describes the pain to be more of a colicky in nature with intensity almost 6 to 7/10 and no radiation associated with nausea, vomiting and did have diarrhea. He denies having any hematochezia. The patient denies having any fever or any chills. Some urinary frequency but no burning suprapubic or flank pain. With these symptoms, the patient has been evaluated by the ER physician. On arrival to the ER, the patient was afebrile. The patient did have a white count 9.1. Repeat is 11.83. Kidney function was normal. Electrolytes normal. Lactic acid was 2.1. Urine did shows large leukocyte esterase with 43 WBCs. Culture now showing Enterococcus. Patient does have PENICILLIN ALLERGY. Infectious Disease was consulted for further management. The patient also had a CT of abdomen and pelvis on admission with evidence of post cholecystectomy syndrome and evidence of small bowel obstruction with transition point in the right lower quadrant for which the patient is currently being monitored by General Surgery. REVIEW OF SYSTEMS: Positive points have been mentioned in HPI. Rest of systems are negative. PAST MEDICAL HISTORY: Asthma, CVA, TIA, diabetes mellitus, DVT, gastroesophageal reflux disease, Crohn's disease, history of kidney stone. PAST SURGICAL HISTORY: Appendectomy, back surgery, bowel resection, cholecystectomy, heart catheterization, prostate surgery. SOCIAL HISTORY: Remote history of smoking. No drinking or drug use. FAMILY HISTORY: Mother with history of DVT. ALLERGIES: ASPIRIN, PENICILLIN with a rash. MEDICATIONS: The patient is currently on Ventolin, Symbicort, heparin, Dilaudid, NovoLog, Keppra, Solu-Medrol, Reglan, Narcan, Protonix. PHYSICAL EXAMINATION: Blood pressure is 145/70 with a pulse of 79, temperature is 97.6. He is 94% on room air. General description: The patient is an elderly male lying in no distress. No tachypnea or accessory muscles of respiration use. HEENT examination is slight pallor. No scleral icterus. Oral mucous membranes dry. NECK: Trachea central. No thyromegaly. LUNGS unlabored breathing. Clear to auscultation anteriorly. No wheeze or crackles. HEART S1, S2. Regular rate and rhythm. ABDOMEN: Soft, no tenderness. No guarding. No rigidity. EXTREMITIES: No edema of the feet. SKIN examination: No rash or mass palpable. NEUROLOGICAL: Patient is awake, alert, oriented times three. Mood and affect normal. LABS: Hemoglobin is 11.1, white count 9.1 on admission. His BUN of 17, creatinine 0.8. Electrolytes have been normal. Liver enzymes are normal. Lactic acid is 2.1. Urine was positive. Culture with group D Enterococcus. DIAGNOSTIC IMPRESSION AND PLAN: 1. Patient admitted to the hospital with abdominal pain and vomiting in this patient who did have history of Crohn's disease and evidence of small bowel obstruction on the CT likely responsible for his symptomatology. The patient does have a positive UA with culture now showing Enterococcus. Did have some urine difficulties but no burning, suprapubic or flank pain. Underlying urinary tract infection less likely but not entirely excluded. 2. Patient with PENICILLIN ALLERGY that will limit the number of antibiotics safe to use. PLAN: 1. We will add vancomycin pharmacy to dose target of 15. 2. Repeat a UA and culture. 3. Depending upon his repeat UA and symptomatology, we will adjust his antibiotic further if needed. Thank you for this consultation. We will follow along with you. MMODL / IJN: [id number] /
[2020-09-23 07:15] LABS: Glucose,Whole Blood 172 mg/dL (75-99)
[2020-09-23 07:57] LABS: African American GFR (CKD) >90 (>60 ml/min/1.73 sqM); Anion Gap 9 mmol/L; Blood Urea Nitrogen 22 mg/dL (9-20); Calcium 7.9 mg/dL (8.4-10.2); Carbon Dioxide 26 mmol/L (22-30); Chloride 106 mmol/L (98-107); Glucose 154 mg/dL (74-99); Non-African American GFR(CKD) >90 (>60 ml/min/1.73 sqM); Potassium 4.2 mmol/L (3.5-5.1); Sodium 141 mmol/L (137-145)
[2020-09-23] MEDS: PANTOPRAZOLE 40 MG/10 ML VIAL IVP SCH ×2 (08:27→21:16)
[2020-09-23] MEDS: HEPARIN SODIUM,PORCINE/PF 5,000 UNIT/0.5 ML SYRINGE SQ SCH ×3 (08:27→23:58)
[2020-09-23] MEDS: INSULIN ASPART (NovoLOG) 100 UNIT/ML VIAL SQ SCH ×7 (08:27→20:45)
[2020-09-23] MEDS: methylPREDNISolone SOD SUCCI 40 MG/ML 1 ML VIAL IV SCH ×3 (08:27→23:57)
[2020-09-23] MEDS: SODIUM CHLORIDE 0.9% 1,000 ML IV SCH ×2 (08:28→20:52)
[2020-09-23] MEDS: levETIRAcetam 500 MG TAB PO SCH ×2 (08:33→21:16)
[2020-09-23] MEDS: SYMBICORT 160-4.5 MCG INHALER INHALATION SCH ×2 (08:43→20:19)
[2020-09-23 10:08] LABS: Total Bilirubin 0.7 mg/dL (0.2-1.3)
--- NOTE | 2020-09-23 10:52 | P.PN ---
Subjective Progress Note Date: 09/23/20 Principal diagnosis: Small bowel obstruction Patient doing about the same. He told me he has not had a bowel movement since Wednesday but apparently told GI he had a small liquid stool yesterday. He told GI he had no flatus but told me he had a small amount of flatus this morning. He denies nausea or vomiting. Still having some epigastric pain apparently he was requesting an EGD. No bloating. No fevers. Objective - Vital Signs Vital signs: Vital Signs Temp 97.2 F L 09/23/20 08:00 Pulse 76 09/23/20 08:00 Resp 17 09/23/20 08:00 BP 150/76 09/23/20 08:00 Pulse Ox 97 09/23/20 08:00 Intake & Output 09/22/20 09/23/20 09/23/20 18:59 06:59 18:59 Intake Total 575 50 Balance 575 50 Intake: Intake, IV Titration 575 Amount Sodium Chloride 0.9% 1, 575 000 ml @ 75 mls/hr IV . [id number] [facility] Rx#:[id number] Oral 50 Other: Voiding Method Toilet Toilet Toilet # Voids 3 1 1 - Exam Abdomen: Soft, nondistended, mild mid abdominal and epigastric tenderness, no rebound or guarding - Labs CBC & Chem 7: 09/22/20 07:17 09/23/20 06:08 Labs: Abnormal Lab Results - Last 24 Hours (Table) 09/22/20 09/22/20 09/22/20 Range/Units 07:17 07:17 11:26 WBC 11.83 H (4.50-10.00) X 10*3/uL RBC 2.65 L (4.40-5.60) X 10*6/uL Hgb 9.3 L (13.0-17.0) g/dL Hct 27.9 L (39.6-50.0) % MCV 105.3 H (80.0-97.0) fL MCH 35.1 H (27.0-32.0) pg Immature Gran # 0.07 H (0.00-0.04) X 10*3/uL Neutrophils # 10.56 H (1.80-7.70) X 10*3/uL Lymphocytes # 0.85 L (0.90-5.00) X 10*3/uL Eosinophils # 0 L (0.04-0.35) X 10*3/uL BUN (9-20) mg/dL BUN/Creatinine Ratio 31.25 H (12.00-20.00) Ratio Glucose 184 H (70-110) mg/dL POC Glucose (mg/dL) 150 H (75-99) mg/dL Calcium 8.1 L (8.7-10.3) mg/dL Urine Blood (Negative) Urine RBC (0-5) /hpf Urine WBC (0-5) /hpf 09/22/20 09/22/20 09/22/20 Range/Units 16:38 16:54 20:40 WBC (4.50-10.00) X 10*3/uL RBC (4.40-5.60) X 10*6/uL Hgb (13.0-17.0) g/dL Hct (39.6-50.0) % MCV (80.0-97.0) fL MCH (27.0-32.0) pg Immature Gran # (0.00-0.04) X 10*3/uL Neutrophils # (1.80-7.70) X 10*3/uL Lymphocytes # (0.90-5.00) X 10*3/uL Eosinophils # (0.04-0.35) X 10*3/uL BUN (9-20) mg/dL BUN/Creatinine Ratio (12.00-20.00) Ratio Glucose (70-110) mg/dL POC Glucose (mg/dL) 146 H 155 H (75-99) mg/dL Calcium (8.7-10.3) mg/dL Urine Blood Moderate H (Negative) Urine RBC 16 H (0-5) /hpf Urine WBC 6 H (0-5) /hpf 09/23/20 09/23/20 Range/Units 06:08 07:14 WBC (4.50-10.00) X 10*3/uL RBC (4.40-5.60) X 10*6/uL Hgb (13.0-17.0) g/dL Hct (39.6-50.0) % MCV (80.0-97.0) fL MCH (27.0-32.0) pg Immature Gran # (0.00-0.04) X 10*3/uL Neutrophils # (1.80-7.70) X 10*3/uL Lymphocytes # (0.90-5.00) X 10*3/uL Eosinophils # (0.04-0.35) X 10*3/uL BUN 22 H (9-20) mg/dL BUN/Creatinine Ratio (12.00-20.00) Ratio Glucose 154 H (70-110) mg/dL POC Glucose (mg/dL) 172 H (75-99) mg/dL Calcium 7.9 L (8.7-10.3) mg/dL Urine Blood (Negative) Urine RBC (0-5) /hpf Urine WBC (0-5) /hpf Microbiology - Last 24 Hours (Table) 09/21/20 00:04 Urine Culture - Preliminary Urine,Voided Group D Enterococcus Assessment and Plan (1) Small bowel obstruction Narrative/Plan: Patient continues to have diminished bowel function and abdominal discomfort. Suspect small bowel obstruction still present. Continue IV steroids. Await formal GI recommendations. Current Visit: Yes Status: Acute Code(s): K56.609 - UNSP INTESTNL OBST, UNSP TO PARTIAL VERSUS COMPLETE OBST SNOMED Code(s): 941570948
--- NOTE | 2020-09-23 11:11 | US ---
EXAMINATION TYPE: US gallbladder DATE OF EXAM: 09/23/2020 COMPARISON: CT 2020 CLINICAL HISTORY: right upper quadrant pain. Abdomen pain, history of cholecystectomy EXAM MEASUREMENTS: Liver Length: 16.6 cm CBD: 1.7 cm Right Kidney: 11.9 x 5.8 x 5.6 cm Pancreas: mostly obscured by overlying midline bowel gas Liver: heterogeneous, increased attenuation, decreased visualization of vessels suggestive of fatty infiltrate Gallbladder: surgically absent Evidence for sonographic Schroeder's sign: no CBD: dilated, obscured distally due to overlying midline bowel gas Right Kidney: 1.2cm stone inferior pole IMPRESSION: 1. Nonspecific pattern seen with hepatitis or hepatocellular disease. 2. 1.2 cm right renal stone. 3. Gallbladder is absent and the common bile duct is dilated 1.7 cm. This appears dilated even for po stcholecystectomy patients. Consider MRCP.
[2020-09-23 11:13] LABS: Basophils # (A) 0.01 X 10*3/uL (0.00-0.10); Basophils % (A) 0.1 %; Eosinophils # (A) 0.01 X 10*3/uL (0.04-0.35); Eosinophils % (A) 0.1 %; HCT 29.6 % (39.6-50.0); HGB 9.6 g/dL (13.0-17.0); Lymphocytes # (A) 0.96 X 10*3/uL (0.90-5.00); Lymphocytes % (A) 8.4 %; MCH 35.4 pg (27.0-32.0); MCHC 32.4 g/dL (32.0-37.0); MCV 109.2 fL (80.0-97.0); Mean Platelet Volume 10.2 fL (9.5-12.2); Monocytes # (A) 0.29 X 10*3/uL (0.20-1.00); Monocytes % (A) 2.5 %; Neutrophils % (A) 87.9 %; Platelet Count 191 X 10*3/uL (140-440); RBC 2.71 X 10*6/uL (4.40-5.60); WBC 11.48 X 10*3/uL (4.50-10.00)
[2020-09-23 11:32] LABS: Glucose,Whole Blood 120 mg/dL (75-99)
--- NOTE | 2020-09-23 13:37 | P.CONS ---
History of Present Illness - Reason for Consult Consult date: 09/23/20 Crohn's exacerbation Requesting physician: Edgar Emerson - Chief Complaint Abdominal pain - History of Present Illness The patient is a 65-year-old white male who presented to the emergency department 3 days ago for abdominal pain with vomiting and diarrhea. The patient has a past medical history significant for Crohn's disease affecting the small and large bowel requiring prior surgical resection, asthma, CVA, diabetes mellitus, deep vein thrombosis, GERD, osteoarthritis, and skin disorder. He states he is in between Biologics, his last biologic was 2 years ago, Cymzia. He states he was also previously on Remicade, Humira, Entyvio and Entocort. He states his last treatment was approximately 2 months ago when he was on steroids. He states his last exacerbation was in 2019. He had a colonoscopy in June 2019 showed moderate ileitis with multiple superficial ulcerations noted in the ileum and at the ileocolonic anastomosis with biopsies of ileum taking, otherwise normal-appearing colon. He's had a EGD a few years ago, history of cholecystectomy in 2014 for cholelithiasis, and a prior ERCP approximately 2015 for biliary obstruction. He states he had nausea and vomiting prior to coming into the hospital, last episode of vomiting was 2 days ago however he still feels nauseous. He is complaining of pain in his right upper quadrant and epigastric region. States no bowel movement today but had a small liquid stool yesterday with no blood. Denies any rectal bleeding, denies passing gas. Patient is currently on vancomycin and Solu-Medrol IV 40 mg every [address] of the abdomen and pelvis show a right hemicolectomy and is stable. Small bowel obstruction with transition point in the right lower quadrant. Closed loop obstruction/ischemic component not excluded. Small. Umbilical hernias containing nondilated small bowel loops. Although in the vicinity of the transition point, this is not thought to be the cause of the obstruction. Stable nonobstructing right renal calculus, 13 mm. No hydro-process. Cholecystectomy central biliary dilation may reflect post Bell cystectomy changes versus distal common bile duct obstruction. Similar to prior. 15 mm common duct. Puncture with hyperdensity within the distal common bile duct may be a small stone. Similar appearance of dilated pancreatic duct. Correlate could consider MRCP ERCP to assess for distal common duct obstruction. Today's labs show WBC 11.48, hemoglobin 9.6, hematocrit 29.6, platelets 191,000, total bilirubin 0.7, alkaline phosphatase 114, AST 42, ALT 47. On admission lipase was 123. Review of Systems REVIEW OF SYSTEMS: CARDIOPULMONARY: No chest pain or shortness of breath. Gastrointestinal: Right upper quadrant and epigastric pain, nausea and vomiting. No hematemesis, coffee-ground emesis. No rectal bleeding, or melena. Diarrhea. GENITOURINARY: No dysuria or hematuria. MUSCULOSKELETAL: Reports normal range of motion., Joint pain. SKIN: No rashes. No jaundice. ENDOCRINE: No chills, fevers. No excessive weight gain or loss. No polydipsia or polyuria. PSYCHIATRIC: Unremarkable. NEUROLOGY: No change in mental status. Denies dizziness, headache. ENT: Vision unremarkable. CONSTITUTIONAL: No recent weight loss. No fever, chills, night sweats. Past Medical History Past Medical History: Asthma, CVA/TIA, Diabetes Mellitus, Deep Vein Thrombosis (DVT), GERD/Reflux, Osteoarthritis (OA), Skin Disorder Additional Past Medical History / Comment(s): HX OF KIDNEY STONES, CROHNS DISEASE, HX OF BLOOD CLOT RT ARM AND BEHIND RT KNEE, TIA/seizure/brain bleed 08/2016, see Dr Wright H&P, "spots of dry skin", hx anemia, september 2018 stone removed L kidney History of Any Multi-Drug Resistant Organisms: MRSA Year Discovered:: 2006 MDRO Source:: nose Past Surgical History: Appendectomy, Back Surgery, Bowel Resection, Cho lecystectomy, Heart Catheterization, Prostate Surgery Additional Past Surgical History / Comment(s): BOWEL RESECTION X 5, SPINAL SURGERIES X3, LEFT LOBECTOMY. lithotripsy, TURP, neck fusion. Past Anesthesia/Blood Transfusion Reactions: No Reported Reaction Past Psychological History: No Psychological Hx Reported Smoking Status: Former smoker Past Alcohol Use History: None Reported Additional Past Alcohol Use History / Comment(s): quit smoking 2005, smoked for > 30 yrs. 1-2 PPD Past Drug Use History: None Reported - Past Family History Mother Family Medical History: Deep Vein Thrombosis (DVT) Medications and Allergies Home Medications Medication Instructions Recorded Confirmed Type levETIRAcetam [Keppra] 500 mg PO DAILY 02/22/17 09/21/20 History levETIRAcetam [Keppra] 1,000 mg PO HS 03/10/17 09/21/20 History Insulin Lispro [humaLOG Kwikpen] 5 unit SQ AC-TID 04/26/17 09/21/20 History Nitroglycerin Sl Tabs [Nitrostat] 0.4 mg SUBLINGUAL Q5M PRN 04/26/17 09/21/20 History Albuterol Sulfate [Albuterol 2 puff INHALATION RT-Q4H PRN 01/21/20 09/21/20 History Sulfate Hfa] Baclofen [Lioresal] 20 mg PO BID-W/MEALS 01/21/20 09/21/20 History Insulin Lispro [humaLOG Kwikpen] See Protocol SQ TID-W/MEALS 01/21/20 09/21/20 History Nortriptyline [Pamelor] 10 mg PO BID 01/21/20 09/21/20 History Budesonide/Formoterol Fumarate 2 puff INHALATION RT-BID 05/08/20 09/21/20 History [Symbicort 160-4.5 Mcg Inhaler] Naproxen 500 mg PO BID 05/08/20 09/21/20 History Pantoprazole Sodium [Protonix] 40 mg PO DAILY 05/08/20 09/21/20 History Promethazine [Phenergan] 25 mg PO DAILY PRN 05/08/20 09/21/20 History Allergies Allergy/AdvReac Type Severity Reaction Status Date / Time aspirin Allergy Swelling Verified 09/21/20 10:04 nalbuphine HCl [From Nubain] Allergy Vomiting Verified 09/21/20 10:04 ondansetron HCl [From Zofran] Allergy Unknown Verified 09/21/20 10:04 penicillin G Allergy Rash/Hives Verified 09/21/20 10:04 venom-wasp [Wasp Venom] Allergy Anaphylaxis Verified 09/21/20 10:04 Physical Exam Vitals: Vital Signs Temp Pulse Pulse Resp BP Pulse Ox 09/23/20 08:00 97.2 F L 76 17 150/76 97 09/23/20 02:54 97.6 F 79 17 136/73 97 09/22/20 20:00 79 18 09/22/20 19:36 75 18 09/22/20 19:34 79 16 145/73 94 L 09/22/20 19:25 73 18 09/22/20 13:59 97.6 F 75 18 119/70 97 Intake and Output 09/22/20 09/23/20 09/23/20 22:59 06:59 14:59 Intake Total 575 50 Balance 575 50 Intake: Intake, IV Titration 575 Amount Sodium Chloride 0.9% 1, 575 000 ml @ 75 mls/hr IV . [id number] [facility] Rx#:[id number] Oral 50 Other: Voiding Method Toilet # Voids 3 1 Results CBC & Chem 7: 09/23/20 06:08 09/23/20 06:08 Labs: Abnormal Lab Results - Last 24 Hours (Table) 09/22/20 09/22/20 09/22/20 Range/Units 07:17 07:17 11:26 WBC 11.83 H (4.50-10.00) X 10*3/uL RBC 2.65 L (4.40-5.60) X 10*6/uL Hgb 9.3 L (13.0-17.0) g/dL Hct 27.9 L (39.6-50.0) % MCV 105.3 H (80.0-97.0) fL MCH 35.1 H (27.0-32.0) pg Immature Gran # 0.07 H (0.00-0.04) X 10*3/uL Neutrophils # 10.56 H (1.80-7.70) X 10*3/uL Lymphocytes # 0.85 L (0.90-5.00) X 10*3/uL Eosinophils # 0 L (0.04-0.35) X 10*3/uL BUN (9-20) mg/dL BUN/Creatinine Ratio 31.25 H (12.00-20.00) Ratio Glucose 184 H (70-110) mg/dL POC Glucose (mg/dL) 150 H (75-99) mg/dL Calcium 8.1 L (8.7-10.3) mg/dL Urine Blood (Negative) Urine RBC (0-5) /hpf Urine WBC (0-5) /hpf 09/22/20 09/22/20 09/22/20 Range/Units 16:38 16:54 20:40 WBC (4.50-10.00) X 10*3/uL RBC (4.40-5.60) X 10*6/uL Hgb (13.0-17.0) g/dL Hct (39.6-50.0) % MCV (80.0-97.0) fL MCH (27.0-32.0) pg Immature Gran # (0.00-0.04) X 10*3/uL Neutrophils # (1.80-7.70) X 10*3/uL Lymphocytes # (0.90-5.00) X 10*3/uL Eosinophils # (0.04-0.35) X 10*3/uL BUN (9-20) mg/dL BUN/Creatinine Ratio (12.00-20.00) Ratio Glucose (70-110) mg/dL POC Glucose (mg/dL) 146 H 155 H (75-99) mg/dL Calcium (8.7-10.3) mg/dL Urine Blood Moderate H (Negative) Urine RBC 16 H (0-5) /hpf Urine WBC 6 H (0-5) /hpf 09/23/20 09/23/20 Range/Units 06:08 07:14 WBC (4.50-10.00) X 10*3/uL RBC (4.40-5.60) X 10*6/uL Hgb (13.0-17.0) g/dL Hct (39.6-50.0) % MCV (80.0-97.0) fL MCH (27.0-32.0) pg Immature Gran # (0.00-0.04) X 10*3/uL Neutrophils # (1.80-7.70) X 10*3/uL Lymphocytes # (0.90-5.00) X 10*3/uL Eosinophils # (0.04-0.35) X 10*3/uL BUN 22 H (9-20) mg/dL BUN/Creatinine Ratio (12.00-20.00) Ratio Glucose 154 H (70-110) mg/dL POC Glucose (mg/dL) 172 H (75-99) mg/dL Calcium 7.9 L (8.7-10.3) mg/dL Urine Blood (Negative) Urine RBC (0-5) /hpf Urine WBC (0-5) /hpf Microbiology - Last 24 Hours (Table) 09/21/20 00:04 Urine Culture - Preliminary Urine,Voided Group D Enterococcus Comments: CT of the abdomen and pelvis show a right hemicolectomy and is stable. Small bowel obstruction with transition point in the right lower quadrant. Closed loop obstruction/ischemic component not excluded. Small. Umbilical hernias containing nondilated small bowel loops. Although in the vicinity of the transition point, this is not thought to be the cause of the obstruction. Stable nonobstructing right renal calculus, 13 mm. No hydro-process. Cholecystectomy central biliary dilation may reflect post Bell cystectomy changes versus distal common bile duct obstruction. Similar to prior. 15 mm common duct. Puncture with hyperdensity within the distal common bile duct may be a small stone. Similar appearance of dilated pancreatic duct. Correlate could consider MRCP ERCP to assess for distal common duct obstruction. Assessment and Plan (1) Exacerbation of Crohn's disease Narrative/Plan: 65-year-old white male who presented to the emergency department 3 days ago for abdominal pain nausea, vomiting, and diarrhea. Patient has a past smoker comorbidities including past medical history of Crohn's disease diagnosed in the 1979. He currently states he is not on any medications. He has been following with care bleeding from gastroenterology and has been in the past on Remicade, Humira, Entivio and Entocort, states his last biologic was Cymzia. He states he has been having problems with coverage on his Biologics. These his last treatment was with steroids approximately 2 months ago. He denies any bright r ed blood or blood in his stool. He is vomiting has improved, patient still has some nausea and pain in the right upper quadrant. He had a small bowel movement yesterday of liquid stool. He had a CT of the abdomen and pelvis that shows small bowel obstruction is stable nonobstructing right renal calculus, and postcholecystectomy with central biliary dilation which may reflect postcholecystectomy change versus distal common duct obstruction. Liver enzymes are normal. He states his last EGD was a few years ago done at [facility]. He underwent a colonoscopy in June 2019 with with moderate ileitis with multiple superficial ulcerations noted in the ileum and at the ileocolonic anastomosis with biopsies of ileum taken. Otherwise normal-looking colon. Gen. surgery is on consult for small bowel obstruction. C-reactive protein and sed rate ordered. Current Visit: Yes Status: Acute Code(s): K50.90 - CROHN'S DISEASE, UNSPECIFIED, WITHOUT COMPLICATIONS SNOMED Code(s): 69606853 (2) Small bowel obstruction Narrative/Plan: Gen. surgery on consult Current Visit: Yes Status: Acute Code(s): K56.609 - UNSP INTESTNL OBST, UNSP TO PARTIAL VERSUS COMPLETE OBST SNOMED Code(s): 464953460 (3) Abdominal pain Current Visit: No Status: Acute Code(s): R10.9 - UNSPECIFIED ABDOMINAL PAIN SNOMED Code(s): 31987763 Plan: 1. Continue symptomatic and supportive care 2. Continue with recommendations from general surgery 3. Decrease Solu-Medrol to 20 mg IV push every 8 hours 4. Continue antibiotics as ordered 5. CRP and sedimentation rate ordered 6. Repeat LFTs 7. CT of abdomen reviewed 8. Ultrasound of gallbladder reviewed 9. Keep NPO 10. CBD dilation likely related to postcholecystectomy, repeat LFTs are within normal limits. No further workup indicated. 11. Patient will need long tapered dose of steroids upon discharge, follow-up with Noreen Almodovar with gastroenterology Dr. Radha Wade I agree with the dictator's note, documented as a scribe by Colleen Urrutia.
--- NOTE | 2020-09-23 15:48 | P.PN ---
Subjective Progress Note Date: 09/23/20 Principal diagnosis: Acute exacerbation of Crohn's disease Mr. Hickey is a 65-year-old male with past medical history of asthma, CVA/TIA, diabetes mellitus, DVT, GERD, osteoarthritis, nephrolithiasis, Crohn's disease coming into the hospital with a chief complaint of abdominal pain nausea vomiting and diarrhea for the past couple of days. Patient states that he has history of Crohn's disease and whenever he has exacerbation of his Crohn's disease he would be having nausea vomiting and diarrhea and he thinks it is one of those episodes. Patient denies having any fevers chills or rigors. He denies having any blood in his stools. Patient denies throwing up blood. Den ies having any chest pain or palpitations. No cough or difficulty in breathing. No swelling of his lower extremities. He mentions that he had multiple laparotomies done in the past. Patient has been on biologic agents but has been off of them for the past few months. He states he follows with GI Dr. Wade. In the ER, patient's vitals at the time of admission temperature 97.8, heart rate 86, respiratory 16, blood pressure 112.8, saturating at 99% on room air. He had labs done showing white count of 9.1, hemoglobin 11.8, platelets 272. Sodium 138, potassium 4.2, chloride 104, bicarbonate 24, BUN 17, creatinine 0.88. Lactic acid of 2.1. Urine analysis negative for nitrites and positive for large leukocyte esterase. 43 WBCs. Coronavirus PCR is negative. Urine cultures pending. Patient had a CAT scan of his abdomen and pelvis showing right hemicolectomy, small bowel obstruction with transition point in the right lower quadrant, stable nonobstructing right renal calculus 13 mm no hydronephrosis. 15 mm common bile duct and punctate hyperdensities within the distal common duct that may be a small stone. Similar appearance of dilated pancreatic duct. On 09/22/2020 - patient is seen and examined at the bedside. Patient states his abdominal pain is mostly in the epigastric area and states that he threw up once last night. Denies any blood in his vomitus. He states that he had a small bowel movement, no diarrhea, no blood. Patient denies having any fevers chills or rigors. No chest pain or palpitations. No cough or difficulty in breathing. No dysuria or hematuria. On reviewing his vitals temperature 97.6, ultrasound of abdomen respiratory rate, blood pressure 119/70, saturating at 97% on room air. Reviewing her labs from this morning white count of 11.8 hemoglobin 9.3, macrocytosis with MCV of 105, platelets adequate at 219. Sodium 143, duration 4.1, chloride 109, bicarbonate 24, BUN 25, creatinine 0.8. Abdominal x-ray from this morning showing persistent but improving small bowel obstruction and increasing it within the colon. On 09/23/2020- patient is seen and examined at the bedside. Patient states that he still has abdominal pain but slightly better than yesterday. He states he had a small bowel movement and is passing gas. He denies having any nausea or vomiting. Patient denies having any fevers chills or rigors. No chest pain or palpitations, no cough or difficulty in breathing. No dysuria or hematuria. On reviewing his vitals temperature of 97.6, heart rate 79, respiratory rate 17, blood pressure 150/76, saturating 97% on room air. Labs from this morning showed white count of 11.4, hemoglobin 9.6, platelets 191. Sodium 141, potassium 4.2, chloride 106, bicarb 26, BUN 20, creatinine 0.6. Active Medications Albuterol Sulfate (Albuterol Nebulized 2.5 Mg/3 Ml) 2.5 mg INHALATION RT-Q4H PRN PRN Reason: Shortness Of Breath Last Admin: 09/22/20 19:24 Dose: 2.5 mg Documented by: Budesonide/Formoterol Fumarate (Symbicort 160-4.5 Mcg Inhaler) 2 puff INHALATION RT-BID [facility] Last Admin: 09/23/20 08:43 Dose: Not Given Documented by: Heparin Sodium (Porcine) (Heparin Sodium,Porcine/Pf 5,000 Unit/0.5 Ml Syringe) 5,000 unit SQ Q8HR [facility] Last Admin: 09/23/20 08:27 Dose: 5,000 unit Documented by: Hydromorphone HCl (Hydromorphone 1 Mg/Ml 1 Ml Syringe) 1 mg IVP Q3HR PRN PRN Reason: Severe Pain Last Admin: 09/23/20 12:18 Dose: 1 mg Documented by: Sodium Chloride (Saline 0.9%) 1,000 mls @ 75 mls/hr IV .[id number] [facility] Last Admin: 09/23/20 08:28 Dose: 75 mls/hr Documented by: Vancomycin HCl 1,500 mg/ (Sodium Chloride) 250 mls @ 125 mls/hr IVPB Q8H [facility] Last Admin: 09/23/20 08:45 Dose: 125 mls/hr Documented by: Insulin Aspart (Insulin Aspart (Novolog) 100 Unit/Ml Vial) 0 unit SQ ACHS [facility]; Protocol Last Admin: 09/23/20 11:35 Dose: Not Given Documented by: Insulin Aspart (Insulin Aspart (Novolog) 100 Unit/Ml Vial) 5 unit SQ AC-TID [facility] Last Admin: 09/23/20 12:20 Dose: Not Given Documented by: Levetiracetam (Levetiracetam 500 Mg Tab) 500 mg PO DAILY [facility] Last Admin: 09/23/20 08:33 Dose: 500 mg Documented by: Levetiracetam (Levetiracetam 500 Mg Tab) 1,000 mg PO HS [facility] Last Admin: 09/22/20 21:01 Dose: 1,000 mg Documented by: Methylprednisolone Sodium Succinate (Methylprednisolone Sod Succi 40 Mg/Ml 1 Ml Vial) 20 mg IV Q8HR [facility] Metoclopramide HCl (Metoclopramide 5 Mg/Ml 2 Ml Vial) 10 mg IVP Q6HR [facility] Last Admin: 09/23/20 12:27 Dose: 10 mg Documented by: Miscellaneous Information (Vancomycin Trough Due 1 Each Misc) 0 each MISCELLANE DIRECTED ONE Stop: 09/23/20 16:01 Naloxone HCl (Naloxone 0.4 Mg/Ml 1 Ml Vial) 0.2 mg IV Q2M PRN PRN Reason: Opioid Reversal Pantoprazole Sodium (Pantoprazole 40 Mg/10 Ml Vial) 40 mg IVP BID [facility] Stop: 09/23/20 23:59 Last Admin: 09/23/20 08:27 Dose: 40 mg Documented by: Pantoprazole Sodium (Pantoprazole 40 Mg Tablet) 40 mg PO BID [facility] Objective - Vital Signs Vital signs: Vital Signs Temp 97.2 F L 09/23/20 08:00 Pulse 76 09/23/20 08:00 Resp 17 09/23/20 08:00 BP 150/76 09/23/20 08:00 Pulse Ox 97 09/23/20 08:00 Intake & Output 09/22/20 09/23/20 09/23/20 18:59 06:59 18:59 Intake Total 575 50 Balance 575 50 Intake: Intake, IV Titration 575 Amount Sodium Chloride 0.9% 1, 575 000 ml @ 75 mls/hr IV . [id number] [facility] Rx#:[id number] Oral 50 Other: Voiding Method Toilet Toilet Toilet # Voids 3 1 1 - Exam GENERAL: The patient is alert and oriented x3, not in any acute distress. Well developed, well nourished. HEENT: Pupils are round and equally reacting to light. EOMI. No scleral icterus. No conjunctival pallor. CARDIOVASCULAR: S1 and S2 present. No murmurs, rubs, or gallops. PULMONARY: Chest is clear to auscultation, no wheezing or crackles. -ABDOMEN: Midline abdominal scar with small reducible hernia . Soft, mild abdominal tenderness, no rebound tenderness or guarding, nondistended, normoactive bowel sounds. MUSCULOSKELETAL: No joint swelling or deformity. EXTREMITIES: No cyanosis, clubbing, or pedal edema. NEUROLOGICAL: Gross neurological examination did not reveal any focal deficits. SKIN: No rashes. no petechiae. - Labs CBC & Chem 7: 09/23/20 06:08 09/23/20 06:08 Labs: Abnormal Lab Results - Last 24 Hours (Table) 09/22/20 09/22/20 09/22/20 Range/Units 07:17 16:38 16:54 WBC (4.50-10.00) X 10*3/uL RBC (4.40-5.60) X 10*6/uL Hgb (13.0-17.0) g/dL Hct (39.6-50.0) % MCV (80.0-97.0) fL MCH (27.0-32.0) pg RDW (11.5-14.5) % Absolute Nucleated RBC (0.00-0.00) X 10*3/uL Immature Gran # 0.07 H (0.00-0.04) X 10*3/uL Neutrophils # 10.56 H (1.80-7.70) X 10*3/uL Lymphocytes # 0.85 L (0.90-5.00) X 10*3/uL Eosinophils # 0 L (0.04-0.35) X 10*3/uL NRBC/100 WBC Diff (0.0-0.0) /100 WBCS BUN (9-20) mg/dL Glucose (74-99) mg/dL POC Glucose (mg/dL) 146 H (75-99) mg/dL Calcium (8.4-10.2) mg/dL Urine Blood Moderate H (Negative) Urine RBC 16 H (0-5) /hpf Urine WBC 6 H (0-5) /hpf 09/22/20 09/23/20 09/23/20 Range/Units 20:40 06:08 06:08 WBC 11.48 H (4.50-10.00) X 10*3/uL RBC 2.71 L (4.40-5.60) X 10*6/uL Hgb 9.6 L (13.0-17.0) g/dL Hct 29.6 L (39.6-50.0) % MCV 109.2 H (80.0-97.0) fL MCH 35.4 H (27.0-32.0) pg RDW 15.0 H (11.5-14.5) % Absolute Nucleated RBC 0.02 H (0.00-0.00) X 10*3/uL Immature Gran # 0.11 H (0.00-0.04) X 10*3/uL Neutrophils # 10.10 H (1.80-7.70) X 10*3/uL Lymphocytes # (0.90-5.00) X 10*3/uL Eosinophils # 0.01 L (0.04-0.35) X 10*3/uL NRBC/100 WBC Diff 0.2 H (0.0-0.0) /100 WBCS BUN 22 H (9-20) mg/dL Glucose 154 H (74-99) mg/dL POC Glucose (mg/dL) 155 H (75-99) mg/dL Calcium 7.9 L (8.4-10.2) mg/dL Urine Blood (Negative) Urine RBC (0-5) /hpf Urine WBC (0-5) /hpf 09/23/20 09/23/20 Range/Units 07:14 11:31 WBC (4.50-10.00) X 10*3/uL RBC (4.40-5.60) X 10*6/uL Hgb (13.0-17.0) g/dL Hct (39.6-50.0) % MCV (80.0-97.0) fL MCH (27.0-32.0) pg RDW (11.5-14.5) % Absolute Nucleated RBC (0.00-0.00) X 10*3/uL Immature Gran # (0.00-0.04) X 10*3/uL Neutrophils # (1.80-7.70) X 10*3/uL Lymphocytes # (0.90-5.00) X 10*3/uL Eosinophils # (0.04-0.35) X 10*3/uL NRBC/100 WBC Diff (0.0-0.0) /100 WBCS BUN (9-20) mg/dL Glucose (74-99) mg/dL POC Glucose (mg/dL) 172 H 120 H (75-99) mg/dL Calcium (8.4-10.2) mg/dL Urine Blood (Negative) Urine RBC (0-5) /hpf Urine WBC (0-5) /hpf Microbiology - Last 24 Hours (Table) 09/21/20 00:04 Urine Culture - Preliminary Urine,Voided Group D Enterococcus Assessment and Plan Assessment: ASSESSMENT -Acute exacerbation of Crohn's with small bowel obstruction due to strictures -Lactic acidosis - probably due to above - continue with IV fluids - Urine cultures positive for group D enterococcus -Incidental finding of right-sided nephrolithiasis nonobstructive -CVA/TIA in the past - history of DVT in the past -Gastroesophageal reflux disease -Asthma without any acute exacerbation -Seizure disorder for which patient is on Keppra which will be continued -Hypertension -DVT prophylaxis with sub cutaneous heparin PLAN: Patient's urine culture is positive for group B enterococcus and patient has penicillin ALLERGIES, ID Dr. Park evaluated the patient and started him on vancomycin. Continue with IV fluids. Patient's Solu-Medrol has been decreased to 20 mg IV every 8 hours by GI this morning and they ordered an ultrasound of the gallbladder-results pending. Heparin for DVT prophylaxis. Protonix for GI prophylaxis. GI to evaluate the patient tomorrow morning. Further recommendations to follow depending on the progress of the patient.
[2020-09-23] MEDS ORDERED: VANCOMYCIN TROUGH DUE 1 EACH MISC MISCELLANE ONE (16:00)
[2020-09-23 16:37] LABS: Glucose,Whole Blood 153 mg/dL (75-99)
--- NOTE | 2020-09-23 19:25 | PN ---
PROGRESS NOTE DATE OF SERVICE: 09/23/2020 REASON FOR FOLLOWUP: Urinary tract infection. INTERVAL HISTORY: Patient is currently afebrile. The patient is breathing comfortably. She denies having any chest pain. No shortness of breath or cough. Abdominal pain is currently controlled. No further vomiting and still having some diarrhea. No urinary symptoms though. PHYSICAL EXAMINATION: Blood pressure 123/65, pulse of 63, temperature is 97.5. He is 97% on room air. General description: The patient is an elderly male lying in no distress. Respiratory system: Unlabored breathing, clear to auscultation anteriorly. Heart S1, S2. Regular rate and rhythm. ABDOMEN: Soft. Mildly distended. No guarding. No rigidity. EXTREMITIES: No edema of the feet. LABS: Repeat urine not significantly positive. Hemoglobin is 9.1, white count 11.4, BUN of 22, creatinine 0.66. DIAGNOSTIC IMPRESSION AND PLAN: Patient with a positive urine culture showing Enterococcus faecalis, possible contaminant as the patient or asymptomatic bacteriuria. Patient does not have significant urinary symptoms. We will go ahead and discontinue his vancomycin and monitor the patient closely off antibiotic therapy. Questions and concerns were answered. MMODL / IJN: [id number] /
[2020-09-23] MEDS: ALBUTEROL NEBULIZED 2.5 MG/3 ML INHALATION PRN (20:16)
[2020-09-23 20:42] LABS: Glucose,Whole Blood 97 mg/dL (75-99)
[2020-09-24] MEDS: HYDROmorphone 1 MG/ML 1 ML SYRINGE IVP PRN ×3 (01:17→07:57)
[2020-09-24] MEDS: METOCLOPRAMIDE 5 MG/ML 2 ML VIAL IVP SCH ×4 (04:59→23:15)
[2020-09-24 05:55] LABS: African American GFR (CKD) >90 (>60 ml/min/1.73 sqM); Anion Gap 10 mmol/L; Blood Urea Nitrogen 19 mg/dL (9-20); Calcium 8.2 mg/dL (8.4-10.2); Carbon Dioxide 26 mmol/L (22-30); Chloride 104 mmol/L (98-107); Glucose 137 mg/dL (74-99); Non-African American GFR(CKD) >90 (>60 ml/min/1.73 sqM); Potassium 3.8 mmol/L (3.5-5.1); Sodium 140 mmol/L (137-145)
[2020-09-24 06:59] LABS: Glucose,Whole Blood 125 mg/dL (75-99)
[2020-09-24] MEDS: HEPARIN SODIUM,PORCINE/PF 5,000 UNIT/0.5 ML SYRINGE SQ SCH ×3 (07:37→22:47)
[2020-09-24] MEDS: INSULIN ASPART (NovoLOG) 100 UNIT/ML VIAL SQ SCH ×7 (07:37→20:46)
[2020-09-24] MEDS: levETIRAcetam 500 MG TAB PO SCH ×2 (07:38→19:44)
[2020-09-24] MEDS: PANTOPRAZOLE 40 MG TABLET PO SCH ×2 (07:38→19:44)
[2020-09-24] MEDS: methylPREDNISolone SOD SUCCI 40 MG/ML 1 ML VIAL IV SCH ×3 (07:38→23:12)
[2020-09-24] MEDS: SYMBICORT 160-4.5 MCG INHALER INHALATION SCH ×2 (09:08→21:13)
[2020-09-24] MEDS: ALBUTEROL NEBULIZED 2.5 MG/3 ML INHALATION PRN ×2 (09:09→12:24)
[2020-09-24 10:27] LABS: Basophils # (A) 0.01 X 10*3/uL (0.00-0.10); Basophils % (A) 0.1 %; Eosinophils # (A) 0 X 10*3/uL (0.04-0.35); Eosinophils % (A) 0 %; HGB 9.7 g/dL (13.0-17.0); Lymphocytes # (A) 1.66 X 10*3/uL (0.90-5.00); Lymphocytes % (A) 15.3 %; MCH 34.8 pg (27.0-32.0); MCHC 32.3 g/dL (32.0-37.0); MCV 107.5 fL (80.0-97.0); Mean Platelet Volume 10.2 fL (9.5-12.2); Monocytes # (A) 0.72 X 10*3/uL (0.20-1.00); Monocytes % (A) 6.7 %; Neutrophils # (A) 8.15 X 10*3/uL (1.80-7.70); Neutrophils % (A) 75.3 %; Platelet Count 230 X 10*3/uL (140-440); RBC 2.79 X 10*6/uL (4.40-5.60); RDW 14.6 % (11.5-14.5); WBC 10.82 X 10*3/uL (4.50-10.00)
[2020-09-24] MEDS: HYDROmorphone 0.5 MG/0.5 ML SYRINGE IVP PRN ×4 (11:18→23:13)
[2020-09-24] MEDS: SODIUM CHLORIDE 0.9% 1,000 ML IV SCH ×2 (11:18→23:15)
[2020-09-24 11:24] LABS: Glucose,Whole Blood 181 mg/dL (75-99)
--- NOTE | 2020-09-24 12:01 | XR ---
EXAMINATION TYPE: XR abdomen 2V DATE OF EXAM: 09/24/2020 COMPARISON: 09/22/2020 HISTORY: Pain TECHNIQUE: One view abdominal series FINDINGS: The osseous structures are intact. The bowel gas pattern is nonspecific. Postsurgical change involvi ng the vertebral column. Surgical clips right upper quadrant. There is bilateral lower lobe infiltrat e and small effusion. Bowel gas pattern remains nonspecific with prominent small and large bowel loop s similar in appearance to the prior exam. Calcification the right upper quadrant could be related to the right renal pelvis measuring 1.2 cm. Calcifications involving the pelvis are suggestive of vascu lar calcifications. Arthropathy of the chest.. IMPRESSION: 1. Nonspecific abdomen. Persistent dilated small and large bowel loops in a nonspecific pattern. 2. Right upper quadrant calcifications stable compatible with known right renal calculus 3. Bilateral lower lobe infiltrate and small effusion.
--- NOTE | 2020-09-24 13:02 | P.PN ---
Subjective Progress Note Date: 09/24/20 Principal diagnosis: Crohn's exacerbation The patient is seen and examined lying in bed. He states he had 2-3 loose nonbloody bowel movements yesterday evening. He states he is still having abdominal pain mostly in the right upper quadrant. He is having some nausea but no vomiting. States he is passing gas today. Inflammatory markers elevated, sed rate 52, C-reactive protein 1.4. Objective - Vital Signs Vital signs: Vital Signs Temp 98.6 F 09/24/20 08:00 Pulse 68 09/24/20 09:23 Resp 18 09/24/20 08:00 BP 153/69 09/24/20 08:00 Pulse Ox 96 09/24/20 08:00 Intake & Output 09/23/20 09/24/20 09/24/20 18:59 06:59 18:59 Intake Total 1150 Balance 1150 Intake: Intake, IV Titration 1150 Amount Sodium Chloride 0.9% 1, 900 000 ml @ 75 mls/hr IV . [id number] [facility] Rx#:[id number] Vancomycin 1,500 mg In 250 Sodium Chloride 0.9% 250 ml @ 125 mls/hr IVPB Q8H [facility] Rx#:[id number] Other: Voiding Method Toilet Toilet Toilet # Voids 3 2 - Exam General appearance: The patient is alert, oriented, appears in no acute distress. HET: Head is normocephalic and atraumatic. Conjunctiva pink. Sclera anicteric. Neck: Supple without lymphadenopathy. Abdomen: Soft, right upper quadrant tenderness, nondistended with bowel sounds. No guarding or rigidity. Extremities: Normal skin color and turgor. No pedal edema Skin: No rashes, no jaundice Neurological: No focal deficits. Alert and oriented 3. - Labs CBC & Chem 7: 09/24/20 04:59 09/24/20 04:59 Labs: Abnormal Lab Results - Last 24 Hours (Table) 09/23/20 09/23/20 09/23/20 Range/Units 06:08 06:08 06:08 WBC 11.48 H (4.50-10.00) X 10*3/uL RBC 2.71 L (4.40-5.60) X 10*6/uL Hgb 9.6 L (13.0-17.0) g/dL Hct 29.6 L (39.6-50.0) % MCV 109.2 H (80.0-97.0) fL MCH 35.4 H (27.0-32.0) pg RDW 15.0 H (11.5-14.5) % Absolute Nucleated RBC 0.02 H (0.00-0.00) X 10*3/uL Immature Gran # 0.11 H (0.00-0.04) X 10*3/uL Neutrophils # 10.10 H (1.80-7.70) X 10*3/uL Eosinophils # 0.01 L (0.04-0.35) X 10*3/uL NRBC/100 WBC Diff 0.2 H (0.0-0.0) /100 WBCS ESR 52 H (0-20) mm/Hr Glucose (74-99) mg/dL POC Glucose (mg/dL) (75-99) mg/dL Calcium (8.4-10.2) mg/dL C-Reactive Protein 1.4 H (0.0-0.8) mg/dL 09/23/20 09/23/20 09/24/20 Range/Units 11:31 16:36 04:59 WBC (4.50-10.00) X 10*3/uL RBC (4.40-5.60) X 10*6/uL Hgb (13.0-17.0) g/dL Hct (39.6-50.0) % MCV (80.0-97.0) fL MCH (27.0-32.0) pg RDW (11.5-14.5) % Absolute Nucleated RBC (0.00-0.00) X 10*3/uL Immature Gran # (0.00-0.04) X 10*3/uL Neutrophils # (1.80-7.70) X 10*3/uL Eosinophils # (0.04-0.35) X 10*3/uL NRBC/100 WBC Diff (0.0-0.0) /100 WBCS ESR (0-20) mm/Hr Glucose 137 H (74-99) mg/dL POC Glucose (mg/dL) 120 H 153 H (75-99) mg/dL Calcium 8.2 L (8.4-10.2) mg/dL C-Reactive Protein (0.0-0.8) mg/dL 09/24/20 09/24/20 Range/Units 04:59 06:58 WBC 10.82 H (4.50-10.00) X 10*3/uL RBC 2.79 L (4.40-5.60) X 10*6/uL Hgb 9.7 L (13.0-17.0) g/dL Hct 30.0 L (39.6-50.0) % MCV 107.5 H (80.0-97.0) fL MCH 34.8 H (27.0-32.0) pg RDW 14.6 H (11.5-14.5) % Absolute Nucleated RBC 0.05 H (0.00-0.00) X 10*3/uL Immature Gran # 0.28 H (0.00-0.04) X 10*3/uL Neutrophils # 8.15 H (1.80-7.70) X 10*3/uL Eosinophils # 0 L (0.04-0.35) X 10*3/uL NRBC/100 WBC Diff 0.5 H (0.0-0.0) /100 WBCS ESR (0-20) mm/Hr Glucose (74-99) mg/dL POC Glucose (mg/dL) 125 H (75-99) mg/dL Calcium (8.4-10.2) mg/dL C-Reactive Protein (0.0-0.8) mg/dL Microbiology - Last 24 Hours (Table) 09/21/20 00:04 Urine Culture - Final Urine,Voided Enterococcus faecalis Assessment and Plan (1) Exacerbation of Crohn's disease Narrative/Plan: 65-year-old white male who presented to the emergency department 3 days ago for abdominal pain nausea, vomiting, and diarrhea. Patient has a past smoker comorbidities including past medical history of Crohn's disease diagnosed in the 1979. He currently states he is not on any medications. He has been following with care bleeding from gastroenterology and has been in the past on Remicade, Humira, Entivio and Entocort, states his last biologic was Cymzia. He states he has been having problems with coverage on his Biologics. These his last treatment was with steroids approximately 2 months ago. He denies any bright red blood or blood in his stool. He is vomiting has improved, patient still has some nausea and pain in the right upper quadrant. He had a small bowel movement yesterday of liquid stool. He had a CT of the abdomen and pelvis that shows small bowel obstruction is stable nonobstructing right renal calculus, and postcholecystectomy with central biliary dilation which may reflect postcholecystectomy change versus distal common duct obstruction. Liver enzymes are normal. He states his last EGD was a few years ago done at [facility]. He underwent a colonoscopy in June 2019 with with moderate ileitis with multiple superficial ulcerations noted in the ileum and at the ileocolonic anastomosis with biopsies of ileum taken. Otherwise normal-looking colon. Gen. surgery is on consult for small bowel obstruction. C-reactive protein and sed rate ordered. Current Visit: Yes Status: Acute Code(s): K50.90 - CROHN'S DISEASE, UNSPECIFIED, WITHOUT COMPLICATIONS SNOMED Code(s): 44643868 (2) Small bowel obstruction Narrative/Plan: Gen. surgery on consult. Repeat abdominal x-ray ordered Current Visit: Yes Status: Acute Code(s): K56.609 - UNSP INTESTNL OBST, UNSP TO PARTIAL VERSUS COMPLETE OBST SNOMED Code(s): 068743391 (3) Abdominal pain Current Visit: No Status: Acute Code(s): R10.9 - UNSPECIFIED ABDOMINAL PAIN SNOMED Code(s): 74871198 Plan: 1. Continue symptomatic and supportive care 2. Continue with recommendations from general surgery 3. Continue Solu-Medrol to 20 mg IV push every 8 hours 4. Continue antibiotics as ordered 5. CRP and sedimentation rate 6. CT of abdomen reviewed 7. Ultrasound of gallbladder reviewed 8. Diet per recommendations from surgical services 9. Abdominal x-ray ordered 10. CBD dilation likely related to postcholecystectomy, repeat LFTs are within normal limits. No further workup indicated. 11. Patient will need long tapered dose of steroids upon discharge, follow-up with Noreen Almodovar with gastroenterology Dr. Radha Wade I agree with the dictator's note, documented as a scribe by Colleen Urrutia.
[2020-09-24 16:33] LABS: Glucose,Whole Blood 150 mg/dL (75-99)
--- NOTE | 2020-09-24 17:18 | P.PN ---
Subjective Progress Note Date: 09/24/20 Principal diagnosis: Small bowel obstruction Patient did have 2 bowel movements that were loose. Some flatus. Still having pain. Says his pain is slightly better. Mild nausea. No vomiting. Today's x- rays noted. Objective - Vital Signs Vital signs: Vital Signs Temp 98.2 F 09/24/20 14:00 Pulse 71 09/24/20 14:00 Resp 16 09/24/20 14:00 BP 135/65 09/24/20 14:00 Pulse Ox 96 09/24/20 14:00 Intake & Output 09/23/20 09/24/20 09/24/20 18:59 06:59 18:59 Intake Total 1150 Balance 1150 Intake: Intake, IV Titration 1150 Amount Sodium Chloride 0.9% 1, 900 000 ml @ 75 mls/hr IV . [id number] [facility] Rx#:[id number] Vancomycin 1,500 mg In 250 Sodium Chloride 0.9% 250 ml @ 125 mls/hr IVPB Q8H [facility] Rx#:[id number] Other: Voiding Method Toilet Toilet Toilet # Voids 3 2 - Exam Abdomen: Soft, nondistended, mild tenderness - Labs CBC & Chem 7: 09/24/20 04:59 09/24/20 04:59 Labs: Abnormal Lab Results - Last 24 Hours (Table) 09/23/20 09/24/20 09/24/20 Range/Units 06:08 04:59 04:59 WBC 10.82 H (4.50-10.00) X 10*3/uL RBC 2.79 L (4.40-5.60) X 10*6/uL Hgb 9.7 L (13.0-17.0) g/dL Hct 30.0 L (39.6-50.0) % MCV 107.5 H (80.0-97.0) fL MCH 34.8 H (27.0-32.0) pg RDW 14.6 H (11.5-14.5) % Absolute Nucleated RBC 0.05 H (0.00-0.00) X 10*3/uL Immature Gran # 0.28 H (0.00-0.04) X 10*3/uL Neutrophils # 8.15 H (1.80-7.70) X 10*3/uL Eosinophils # 0 L (0.04-0.35) X 10*3/uL NRBC/100 WBC Diff 0.5 H (0.0-0.0) /100 WBCS Glucose 137 H (74-99) mg/dL POC Glucose (mg/dL) (75-99) mg/dL Calcium 8.2 L (8.4-10.2) mg/dL C-Reactive Protein 1.4 H (0.0-0.8) mg/dL 09/24/20 09/24/20 09/24/20 Range/Units 06:58 11:23 16:31 WBC (4.50-10.00) X 10*3/uL RBC (4.40-5.60) X 10*6/uL Hgb (13.0-17.0) g/dL Hct (39.6-50.0) % MCV (80.0-97.0) fL MCH (27.0-32.0) pg RDW (11.5-14.5) % Absolute Nucleated RBC (0.00-0.00) X 10*3/uL Immature Gran # (0.00-0.04) X 10*3/uL Neutrophils # (1.80-7.70) X 10*3/uL Eosinophils # (0.04-0.35) X 10*3/uL NRBC/100 WBC Diff (0.0-0.0) /100 WBCS Glucose (74-99) mg/dL POC Glucose (mg/dL) 125 H 181 H 150 H (75-99) mg/dL Calcium (8.4-10.2) mg/dL C-Reactive Protein (0.0-0.8) mg/dL Microbiology - Last 24 Hours (Table) 09/21/20 00:04 Urine Culture - Final Urine,Voided Enterococcus faecalis Assessment and Plan (1) Small bowel obstruction Narrative/Plan: Patient seems to be clinically improving. Continue nothing by mouth except for ice chips today. If further bowel function noted Will begin liquid diet tomorrow. Continue ambulation. Continue IV steroids. Current Visit: Yes Status: Acute Code(s): K56.609 - UNSP INTESTNL OBST, UNSP TO PARTIAL VERSUS COMPLETE OBST SNOMED Code(s): 456610458
--- NOTE | 2020-09-24 20:03 | PN ---
PROGRESS NOTE DATE OF SERVICE: 09/24/2020 REASON FOR FOLLOWUP: Urinary tract infection. INTERVAL HISTORY: The patient is afebrile. The patient is breathing comfortably. Patient denies having any chest pain. No shortness of breath or cough. Still has some nausea and discomfort and diarrhea. No burning or frequency of urine. PHYSICAL EXAMINATION: Blood pressure is 135/65, pulse of 71, temperature 98.2. He is 96% on room air. General description: The patient is an elderly male lying in bed in no distress. Respiratory system: Unlabored breathing. Clear to auscultation anteriorly. Heart S1, S2. Regular rate and rhythm. ABDOMEN: Soft. No tenderness. EXTREMITIES: No edema of the feet. LABS: White count is normal. A repeat UA was not significantly positive. DIAGNOSTIC IMPRESSION AND PLAN: Patient with a positive urine culture with Enterococcus faecalis. Possible contaminant or asymptomatic bacteriuria as the patient did not have any urinary symptoms. We will recommend no antibiotic therapy at this point. Continue supportive care. MMODL / IJN: [id number] /
[2020-09-24 20:26] LABS: Glucose,Whole Blood 87 mg/dL (75-99)
[2020-09-25] MEDS: HYDROmorphone 0.5 MG/0.5 ML SYRINGE IVP PRN ×7 (02:33→21:21)
[2020-09-25] MEDS: METOCLOPRAMIDE 5 MG/ML 2 ML VIAL IVP SCH ×4 (04:53→23:34)
[2020-09-25] MEDS: INSULIN ASPART (NovoLOG) 100 UNIT/ML VIAL SQ SCH ×7 (07:19→21:20)
[2020-09-25 07:45] LABS: Glucose,Whole Blood 125 mg/dL (75-99)
[2020-09-25] MEDS: HEPARIN SODIUM,PORCINE/PF 5,000 UNIT/0.5 ML SYRINGE SQ SCH ×3 (08:29→22:24)
[2020-09-25] MEDS: PANTOPRAZOLE 40 MG TABLET PO SCH ×2 (08:30→21:20)
[2020-09-25] MEDS: methylPREDNISolone SOD SUCCI 40 MG/ML 1 ML VIAL IV SCH ×3 (08:30→23:35)
[2020-09-25] MEDS: levETIRAcetam 500 MG TAB PO SCH ×2 (08:30→21:20)
[2020-09-25] MEDS: SYMBICORT 160-4.5 MCG INHALER INHALATION SCH ×2 (09:19→22:12)
[2020-09-25] MEDS: ALBUTEROL NEBULIZED 2.5 MG/3 ML INHALATION PRN ×2 (09:19→22:12)
[2020-09-25] MEDS: SODIUM CHLORIDE 0.9% 1,000 ML IV SCH (10:39)
--- NOTE | 2020-09-25 11:16 | P.PN ---
<Jessica Bland - Last Filed: 09/25/20 11:11> Subjective Progress Note Date: 09/25/20 CHIEF COMPLAINT: Small bowel obstruction HISTORY OF PRESENT ILLNESS: Surgical service is following regards patient's small bowel obstruction. He is also being treated for Crohn's during this admission and is on steroids. Patient has been having loose stools which he states is his usual because of his Crohn's. He denies any blood in his stools. Having some flatus. He has had decrease in his abdominal pain since admission. Pain is mostly near the umbilicus on the right side. He denies any nausea or vomiting. He was started on clear liquids this morning and tolerated them well. Afebrile. Labs for today are pending PHYSICAL EXAM: VITAL SIGNS: Reviewed. GENERAL: Well-developed in no acute distress. HEENT: No sclera icterus. Extraocular movements grossly intact. Moist buccal mucosa. Head is atraumatic, normocephalic. ABDOMEN: Soft. Nondistended. Mild tenderness with palpation of the mid abdomen on the right side of the umbilicus NEUROLOGIC: Alert and oriented. Cranial nerves II through XII grossly intact. ASSESSMENT: 1. Small bowel obstruction 2. Crohn's exacerbation PLAN: -Patient started on clear liquid diet today -Continue steroids for Crohn's exacerbation per GI recommendations -Continue supportive care -Continue pain medication as needed -Encourage patient to ambulate -GI prophylaxis Protonix and DVT prophylaxis subcu heparin Physician Grain Trimmer note has been reviewed by physician. Signing provider agrees with the documented findings, assessment, and plan of care. Objective - Vital Signs Vital signs: Vital Signs Temp 97.7 F 09/25/20 08:00 Pulse 60 09/25/20 09:30 Resp 16 09/25/20 08:00 BP 151/71 09/25/20 08:00 Pulse Ox 96 09/25/20 08:00 Intake & Output 09/24/20 09/25/20 09/25/20 18:59 06:59 18:59 Intake Total 0 Balance 0 Intake: Oral 0 Other: Voiding Method Toilet Toilet Toilet # Voids 2 6 # Bowel Movements 1 - Labs CBC & Chem 7: 09/24/20 04:59 09/24/20 04:59 Labs: Abnormal Lab Results - Last 24 Hours (Table) 09/24/20 09/24/2021 Range/Units 11:23 16:31 07:44 POC Glucose (mg/dL) 181 H 150 H 125 H (75-99) mg/dL <Edgar Emerson - Last Filed: 09/25/20 19:09> Subjective As above. Patient doing well today. Tolerating clears. Will advance to full liquids tomorrow. Objective - Vital Signs Vital signs: Vital Signs Temp 98.0 F 09/25/20 14:00 Pulse 66 09/25/20 14:00 Resp 16 09/25/20 14:00 BP 132/68 09/25/20 14:00 Pulse Ox 98 09/25/20 14:00 Intake & Output 09/25/20 09/25/20 09/26/20 06:59 18:59 06:59 Intake Total 840 Balance 840 Weight 84.822 kg Intake: Oral 840 Other: Voiding Method Toilet Toilet # Voids 6 3 # Bowel Movements 1 1 - Labs CBC & Chem 7: 09/25/20 05:50 09/25/20 05:50 Labs: Abnormal Lab Results - Last 24 Hours (Table) 09/25/20 09/25/20 09/25/20 Range/Units 05:50 05:50 07:44 RBC 2.67 L (4.40-5.60) X 10*6/uL Hgb 9.2 L (13.0-17.0) g/dL Hct 28.3 L (39.6-50.0) % MCV 106.0 H (80.0-97.0) fL MCH 34.5 H (27.0-32.0) pg RDW 15.2 H (11.5-14.5) % Absolute Nucleated RBC 0.03 H (0.00-0.00) X 10*3/uL Immature Gran # 0.22 H (0.00-0.04) X 10*3/uL Eosinophils # 0.01 L (0.04-0.35) X 10*3/uL NRBC/100 WBC Diff 0.4 H (0.0-0.0) /100 WBCS ESR 34 H (0-20) mm/Hr Anion Gap 12.40 H (4.00-12.00) mmol/L BUN/Creatinine Ratio 22.86 H (12.00-20.00) Ratio Glucose 156 H (70-110) mg/dL POC Glucose (mg/dL) 125 H (75-99) mg/dL Calcium 7.7 L (8.7-10.3) mg/dL 09/25/20 09/25/20 Range/Units 11:33 16:19 RBC (4.40-5.60) X 10*6/uL Hgb (13.0-17.0) g/dL Hct (39.6-50.0) % MCV (80.0-97.0) fL MCH (27.0-32.0) pg RDW (11.5-14.5) % Absolute Nucleated RBC (0.00-0.00) X 10*3/uL Immature Gran # (0.00-0.04) X 10*3/uL Eosinophils # (0.04-0.35) X 10*3/uL NRBC/100 WBC Diff (0.0-0.0) /100 WBCS ESR (0-20) mm/Hr Anion Gap (4.00-12.00) mmol/L BUN/Creatinine Ratio (12.00-20.00) Ratio Glucose (70-110) mg/dL POC Glucose (mg/dL) 257 H 163 H (75-99) mg/dL Calcium (8.7-10.3) mg/dL Assessment and Plan (1) Small bowel obstruction Current Visit: Yes Status: Acute Code(s): K56.609 - UNSP INTESTNL OBST, UNSP TO PARTIAL VERSUS COMPLETE OBST SNOMED Code(s): 606532358
[2020-09-25 11:38] LABS: Glucose,Whole Blood 257 mg/dL (75-99)
[2020-09-25 11:51] LABS: Basophils # (A) 0.01 X 10*3/uL (0.00-0.10); Basophils % (A) 0.1 %; Eosinophils # (A) 0.01 X 10*3/uL (0.04-0.35); Eosinophils % (A) 0.1 %; HCT 28.3 % (39.6-50.0); HGB 9.2 g/dL (13.0-17.0); Lymphocytes # (A) 0.99 X 10*3/uL (0.90-5.00); Lymphocytes % (A) 14.8 %; MCH 34.5 pg (27.0-32.0); MCHC 32.5 g/dL (32.0-37.0); Mean Platelet Volume 11.2 fL (9.5-12.2); Monocytes # (A) 0.47 X 10*3/uL (0.20-1.00); Neutrophils % (A) 74.7 %; Platelet Count 140 X 10*3/uL (140-440); RBC 2.67 X 10*6/uL (4.40-5.60); RDW 15.2 % (11.5-14.5)
--- NOTE | 2020-09-25 11:51 | P.PN ---
Subjective Progress Note Date: 09/25/20 Principal diagnosis: Crohn's exacerbation Patient was seen and examined lying in bed. Patient states abdominal pain has improved, continues to have loose bowel movements, denies any blood in the stool or per rectum. Denies any nausea or vomiting. He is being followed by surgery, he was advanced to ice chips last night. Objective - Vital Signs Vital signs: Vital Signs Temp 97.7 F 09/25/20 08:00 Pulse 59 L 09/25/20 08:00 Resp 16 09/25/20 08:00 BP 151/71 09/25/20 08:00 Pulse Ox 96 09/25/20 08:00 Intake & Output 09/24/20 09/25/20 09/25/20 18:59 06:59 18:59 Intake Total 0 Balance 0 Intake: Oral 0 Other: Voiding Method Toilet Toilet # Voids 2 6 # Bowel Movements 1 - Exam General appearance: The patient is alert, oriented, appears in no acute distress. HET: Head is normocephalic and atraumatic. Conjunctiva pink. Sclera anicteric. Neck: Supple without lymphadenopathy. Abdomen: Soft, nontender,, nondistended with bowel sounds. No guarding or rigidity. Extremities: Normal skin color and turgor. No pedal edema Skin: No rashes, no jaundice Neurological: No focal deficits. Alert and oriented 3. - Labs CBC & Chem 7: 09/24/20 04:59 09/24/20 04:59 Labs: Abnormal Lab Results - Last 24 Hours (Table) 09/24/20 09/24/20 09/24/20 Range/Units 04:59 11:23 16:31 WBC 10.82 H (4.50-10.00) X 10*3/uL RBC 2.79 L (4.40-5.60) X 10*6/uL Hgb 9.7 L (13.0-17.0) g/dL Hct 30.0 L (39.6-50.0) % MCV 107.5 H (80.0-97.0) fL MCH 34.8 H (27.0-32.0) pg RDW 14.6 H (11.5-14.5) % Absolute Nucleated RBC 0.05 H (0.00-0.00) X 10*3/uL Immature Gran # 0.28 H (0.00-0.04) X 10*3/uL Neutrophils # 8.15 H (1.80-7.70) X 10*3/uL Eosinophils # 0 L (0.04-0.35) X 10*3/uL NRBC/100 WBC Diff 0.5 H (0.0-0.0) /100 WBCS POC Glucose (mg/dL) 181 H 150 H (75-99) mg/dL 09/25/20 Range/Units 07:44 WBC (4.50-10.00) X 10*3/uL RBC (4.40-5.60) X 10*6/uL Hgb (13.0-17.0) g/dL Hct (39.6-50.0) % MCV (80.0-97.0) fL MCH (27.0-32.0) pg RDW (11.5-14.5) % Absolute Nucleated RBC (0.00-0.00) X 10*3/uL Immature Gran # (0.00-0.04) X 10*3/uL Neutrophils # (1.80-7.70) X 10*3/uL Eosinophils # (0.04-0.35) X 10*3/uL NRBC/100 WBC Diff (0.0-0.0) /100 WBCS POC Glucose (mg/dL) 125 H (75-99) mg/dL Assessment and Plan (1) Exacerbation of Crohn's disease Narrative/Plan: 65-year-old white male who presented to the emergency department 3 days ago for abdominal pain nausea, vomiting, and diarrhea. Patient has a past smoker co morbidities including past medical history of Crohn's disease diagnosed in the 1979. He currently states he is not on any medications. He has been following with care bleeding from gastroenterology and has been in the past on Remicade, Humira, Entivio and Entocort, states his last biologic was Cymzia. He states he has been having problems with coverage on his Biologics. These his last treatment was with steroids approximately 2 months ago. He denies any bright red blood or blood in his stool. He is vomiting has improved, patient still has some nausea and pain in the right upper quadrant. He had a small bowel movement yesterday of liquid stool. He had a CT of the abdomen and pelvis that shows small bowel obstruction is stable nonobstructing right renal calculus, and postcholecystectomy with central biliary dilation which may reflect postcholecystectomy change versus distal common duct obstruction. Liver enzymes are normal. He states his last EGD was a few years ago done at [facility]. He underwent a colonoscopy in June 2019 with with moderate ileitis with multiple superficial ulcerations noted in the ileum and at the ileocolonic anastomosis with biopsies of ileum taken. Otherwise normal-looking colon. Gen. surgery is on consult for small bowel obstruction. C-reactive protein and sed rate ordered. Current Visit: Yes Status: Acute Code(s): K50.90 - CROHN'S DISEASE, UNSPECI FIED, WITHOUT COMPLICATIONS SNOMED Code(s): 53729337 (2) Small bowel obstruction Narrative/Plan: Gen. surgery on consult. Repeat abdominal x-ray ordered Current Visit: Yes Status: Acute Code(s): K56.609 - UNSP INTESTNL OBST, UNSP TO PARTIAL VERSUS COMPLETE OBST SNOMED Code(s): 062671329 (3) Abdominal pain Current Visit: No Status: Acute Code(s): R10.9 - UNSPECIFIED ABDOMINAL PAIN SNOMED Code(s): 45789413 Plan: 1. Continue symptomatic and supportive care 2. Continue with recommendations from general surgery 3. Continue Solu-Medrol to 20 mg IV push every 8 hours, the patient continues to improve, will transition to prednisone 40 mg by mouth daily tomorrow 4. Continue antibiotics as ordered 5. CT of abdomen reviewed 7. Ultrasound of gallbladder reviewed 8. Advance to clear liquid diet 9. Abdominal x-ray ordered and reviewed 10. CBD dilation likely related to postcholecystectomy, repeat LFTs are within normal limits. No further workup indicated. 11. Patient will need long tapered dose of steroids upon discharge, follow-up with Noreen Almodovar with gastroenterology Dr. Radha Wade I agree with the dictator's note, documented as a scribe by Colleen Urrutia.
[2020-09-25 12:23] VITALS: BMI 25.3
--- NOTE | 2020-09-25 15:48 | PN ---
PROGRESS NOTE DATE OF SERVICE: 09/25/2020 REASON FOR FOLLOWUP: Urinary tract infection. INTERVAL HISTORY: Patient is afebrile. The patient is breathing comfortably. The patient denies any chest pain. No shortness of breath. No cough. No abdominal pain. Still has some . Denies any urinary symptoms. PHYSICAL EXAMINATION: Blood pressure 151/71, pulse of 59. Temperature is 97.7. He is 96% on room air. The patient is an elderly male lying in bed in no distress. Respiratory system: Unlabored breathing, clear to auscultation anteriorly. Heart: S1, S2 regular rate and rhythm. Abdomen soft, no tenderness. LABS: Hemoglobin 11.1, white count 6.70. DIAGNOSTIC IMPRESSION AND PLAN: Patient with positive culture, Enterococcus faecalis, possible colonizer or asymptomatic bacteriuria as the patient does not have any urinary symptoms. Currently monitored off antibiotic therapy with normal white count. ID will sign off. Please call if any questions for infectious disease care. MMODL / IJN: [id number] /
[2020-09-25 16:20] LABS: Glucose,Whole Blood 163 mg/dL (75-99)
[2020-09-25 17:04] LABS: Erythrocyte Sedimentation Rate 34 mm/Hr (0-20)
[2020-09-25 17:56] LABS: C Reactive Protein <0.4 mg/dL (0.0-0.8)
[2020-09-25 17:57] LABS: BUN/Creat Ratio 22.86 Ratio (12.00-20.00); Calcium 7.7 mg/dL (8.7-10.3); Carbon Dioxide 23.6 mmol/L (21.6-31.8); Chloride 103 mmol/L (96-109); Glucose 156 mg/dL (70-110); Non-African American GFR(CKD) 98.3 (60.0-200.0); Potassium 3.7 mmol/L (3.5-5.5); Sodium 139 mmol/L (135-145)
[2020-09-25 20:32] LABS: Glucose,Whole Blood 135 mg/dL (75-99)
--- NOTE | 2020-09-25 23:49 | P.PN ---
Subjective Progress Note Date: 09/24/20 Principal diagnosis: Acute exacerbation of Crohn's disease Mr. Hickey is a 65-year-old male with past medical history of asthma, CVA/TIA, diabetes mellitus, DVT, GERD, osteoarthritis, nephrolithiasis, Crohn's disease coming into the hospital with a chief complaint of abdominal pain nausea vomiting and diarrhea for the past couple of days. Patient states that he has history of Crohn's disease and whenever he has exacerbation of his Crohn's disease he would be having nausea vomiting and diarrhea and he thinks it is one of those episodes. Patient denies having any fevers chills or rigors. He denies having any blood in his stools. Patient denies throwing up blood. Den ies having any chest pain or palpitations. No cough or difficulty in breathing. No swelling of his lower extremities. He mentions that he had multiple laparotomies done in the past. Patient has been on biologic agents but has been off of them for the past few months. He states he follows with GI Dr. Wade. In the ER, patient's vitals at the time of admission temperature 97.8, heart rate 86, respiratory 16, blood pressure 112.8, saturating at 99% on room air. He had labs done showing white count of 9.1, hemoglobin 11.8, platelets 272. Sodium 138, potassium 4.2, chloride 104, bicarbonate 24, BUN 17, creatinine 0.88. Lactic acid of 2.1. Urine analysis negative for nitrites and positive for large leukocyte esterase. 43 WBCs. Coronavirus PCR is negative. Urine cultures pending. Patient had a CAT scan of his abdomen and pelvis showing right hemicolectomy, small bowel obstruction with transition point in the right lower quadrant, stable nonobstructing right renal calculus 13 mm no hydronephrosis. 15 mm common bile duct and punctate hyperdensities within the distal common duct that may be a small stone. Similar appearance of dilated pancreatic duct. On 09/22/2020 - patient is seen and examined at the bedside. Patient states his abdominal pain is mostly in the epigastric area and states that he threw up once last night. Denies any blood in his vomitus. He states that he had a small bowel movement, no diarrhea, no blood. Patient denies having any fevers chills or rigors. No chest pain or palpitations. No cough or difficulty in breathing. No dysuria or hematuria. On reviewing his vitals temperature 97.6, ultrasound of abdomen respiratory rate, blood pressure 119/70, saturating at 97% on room air. Reviewing her labs from this morning white count of 11.8 hemoglobin 9.3, macrocytosis with MCV of 105, platelets adequate at 219. Sodium 143, duration 4.1, chloride 109, bicarbonate 24, BUN 25, creatinine 0.8. Abdominal x-ray from this morning showing persistent but improving small bowel obstruction and increasing it within the colon. On 09/23/2020- patient is seen and examined at the bedside. Patient states that he still has abdominal pain but slightly better than yesterday. He states he had a small bowel movement and is passing gas. He denies having any nausea or vomiting. Patient denies having any fevers chills or rigors. No chest pain or palpitations, no cough or difficulty in breathing. No dysuria or hematuria. On reviewing his vitals temperature of 97.6, heart rate 79, respiratory rate 17, blood pressure 150/76, saturating 97% on room air. Labs from this morning showed white count of 11.4, hemoglobin 9.6, platelets 191. Sodium 141, potassium 4.2, chloride 106, bicarb 26, BUN 20, creatinine 0.6. 09/24/2020 Patient is currently lying in the bed comfortably. Abdominal discomfort is improving but still having right lower quadrant pain. Patient did have 2-3 loose nonbloody bowel movements yesterday evening. Otherwise patient has been afebrile. No complaints of chest pain or shortness of breath. Laboratory data showed WBC 10.8 hemoglobin 9.7 platelets 230 Patient is being continued IV hydration and methylprednisolone 20 mg IV every 8. GI and general surgery is on board. Current medications reviewed. Objective - Vital Signs Vital signs: Vital Signs Temp 98.2 F 09/24/20 14:00 Pulse 71 09/24/20 14:00 Resp 16 09/24/20 14:00 BP 135/65 09/24/20 14:00 Pulse Ox 96 09/24/20 14:00 Intake & Output 09/23/20 09/24/20 09/24/20 18:59 06:59 18:59 Intake Total 1150 Balance 1150 Intake: Intake, IV Titration 1150 Amount Sodium Chloride 0.9% 1, 900 000 ml @ 75 mls/hr IV . [id number] MONA Rx#:[id number] Vancomycin 1,500 mg In 250 Sodium Chloride 0.9% 250 ml @ 125 mls/hr IVPB Q8H MONA Rx#:[id number] Other: Voiding Method Toilet Toilet Toilet # Voids 3 2 - Exam GENERAL: The patient is alert and oriented x3, not in any acute distress. Well developed, well nourished. HEENT: Pupils are round and equally reacting to light. EOMI. No scleral icterus. No conjunctival pallor. CARDIOVASCULAR: S1 and S2 present. No murmurs, rubs, or gallops. PULMONARY: Chest is clear to auscultation, no wheezing or crackles. -ABDOMEN: Midline abdominal scar with small reducible hernia . Soft, mild abdominal tenderness, no rebound tenderness or guarding, nondistended, normoactive bowel sounds. MUSCULOSKELETAL: No joint swelling or deformity. EXTREMITIES: No cyanosis, clubbing, or pedal edema. NEUROLOGICAL: Gross neurological examination did not reveal any focal deficits. SKIN: No rashes. no petechiae. - Labs CBC & Chem 7: 09/25/20 05:50 09/25/20 05:50 Labs: Abnormal Lab Results - Last 24 Hours (Table) 09/23/20 09/23/20 09/24/20 Range/Units 06:08 16:36 04:59 WBC (4.50-10.00) X 10*3/uL RBC (4.40-5.60) X 10*6/uL Hgb (13.0-17.0) g/dL Hct (39.6-50.0) % MCV (80.0-97.0) fL MCH (27.0-32.0) pg RDW (11.5-14.5) % Absolute Nucleated RBC (0.00-0.00) X 10*3/uL Immature Gran # (0.00-0.04) X 10*3/uL Neutrophils # (1.80-7.70) X 10*3/uL Eosinophils # (0.04-0.35) X 10*3/uL NRBC/100 WBC Diff (0.0-0.0) /100 WBCS Glucose 137 H (74-99) mg/dL POC Glucose (mg/dL) 153 H (75-99) mg/dL Calcium 8.2 L (8.4-10.2) mg/dL C-Reactive Protein 1.4 H (0.0-0.8) mg/dL 09/24/20 09/24/20 09/24/20 Range/Units 04:59 06:58 11:23 WBC 10.82 H (4.50-10.00) X 10*3/uL RBC 2.79 L (4.40-5.60) X 10*6/uL Hgb 9.7 L (13.0-17.0) g/dL Hct 30.0 L (39.6-50.0) % MCV 107.5 H (80.0-97.0) fL MCH 34.8 H (27.0-32.0) pg RDW 14.6 H (11.5-14.5) % Absolute Nucleated RBC 0.05 H (0.00-0.00) X 10*3/uL Immature Gran # 0.28 H (0.00-0.04) X 10*3/uL Neutrophils # 8.15 H (1.80-7.70) X 10*3/uL Eosinophils # 0 L (0.04-0.35) X 10*3/uL NRBC/100 WBC Diff 0.5 H (0.0-0.0) /100 WBCS Glucose (74-99) mg/dL POC Glucose (mg/dL) 125 H 181 H (75-99) mg/dL Calcium (8.4-10.2) mg/dL C-Reactive Protein (0.0-0.8) mg/dL Microbiology - Last 24 Hours (Table) 09/21/20 00:04 Urine Culture - Final Urine,Voided Enterococcus faecalis Assessment and Plan Assessment: -Acute exacerbation of Crohn's with small bowel obstruction due to strictures -Lactic acidosis - probably due to above - improved. continue with IV fluids -UTI -Urine cultures positive for group D enterococcus -Incidental finding of right-sided nephrolithiasis nonobstructive -CVA/TIA in the past - history of DVT in the past -Gastroesophageal reflux disease -Asthma without any acute exacerbation -Seizure disorder for which patient is on Keppra which will be continued -Hypertension -DVT prophylaxis with sub cutaneous heparin PLAN: Patient's urine culture is positive for group B enterococcus and patient has penicillin ALLERGIES, ID Dr. Park evaluated the patient and started him on vancomycin. Continue with IV fluids. Patient's Solu-Medrol has been decreased to 20 mg IV every 8 hours by GI this morning and they ordered an ultrasound of the gallbladder-rShowed nonspecific pattern seen with hepatitis or hepatocellular disease. 1.2 cm renal stone right. Gallbladder is absent and common bile duct is dilated 1.7 cm. Abdominal x-ray showed nonspecific abdominal. Persistent dilated small and large bowel loops. Nonspecific pattern. Right upper quadrant calcifications stable compatible with known right renal calculus. Bilateral lower lobe infiltrate and small effusion.. Heparin for DVT prophylaxis. Protonix for GI prophylaxis. GI and Gen surgery is on board. continue to to follow closely.. Time with Patient: Greater than 30
--- NOTE | 2020-09-25 23:54 | P.PN ---
Subjective Progress Note Date: 09/25/20 Principal diagnosis: Acute exacerbation of Crohn's disease Mr. Hickey is a 65-year-old male with past medical history of asthma, CVA/TIA, diabetes mellitus, DVT, GERD, osteoarthritis, nephrolithiasis, Crohn's disease coming into the hospital with a chief complaint of abdominal pain nausea vomiting and diarrhea for the past couple of days. Patient states that he has history of Crohn's disease and whenever he has exacerbation of his Crohn's disease he would be having nausea vomiting and diarrhea and he thinks it is one of those episodes. Patient denies having any fevers chills or rigors. He denies having any blood in his stools. Patient denies throwing up blood. Den ies having any chest pain or palpitations. No cough or difficulty in breathing. No swelling of his lower extremities. He mentions that he had multiple laparotomies done in the past. Patient has been on biologic agents but has been off of them for the past few months. He states he follows with GI Dr. Wade. In the ER, patient's vitals at the time of admission temperature 97.8, heart rate 86, respiratory 16, blood pressure 112.8, saturating at 99% on room air. He had labs done showing white count of 9.1, hemoglobin 11.8, platelets 272. Sodium 138, potassium 4.2, chloride 104, bicarbonate 24, BUN 17, creatinine 0.88. Lactic acid of 2.1. Urine analysis negative for nitrites and positive for large leukocyte esterase. 43 WBCs. Coronavirus PCR is negative. Urine cultures pending. Patient had a CAT scan of his abdomen and pelvis showing right hemicolectomy, small bowel obstruction with transition point in the right lower quadrant, stable nonobstructing right renal calculus 13 mm no hydronephrosis. 15 mm common bile duct and punctate hyperdensities within the distal common duct that may be a small stone. Similar appearance of dilated pancreatic duct. On 09/22/2020 - patient is seen and examined at the bedside. Patient states his abdominal pain is mostly in the epigastric area and states that he threw up once last night. Denies any blood in his vomitus. He states that he had a small bowel movement, no diarrhea, no blood. Patient denies having any fevers chills or rigors. No chest pain or palpitations. No cough or difficulty in breathing. No dysuria or hematuria. On reviewing his vitals temperature 97.6, ultrasound of abdomen respiratory rate, blood pressure 119/70, saturating at 97% on room air. Reviewing her labs from this morning white count of 11.8 hemoglobin 9.3, macrocytosis with MCV of 105, platelets adequate at 219. Sodium 143, duration 4.1, chloride 109, bicarbonate 24, BUN 25, creatinine 0.8. Abdominal x-ray from this morning showing persistent but improving small bowel obstruction and increasing it within the colon. On 09/23/2020- patient is seen and examined at the bedside. Patient states that he still has abdominal pain but slightly better than yesterday. He states he had a small bowel movement and is passing gas. He denies having any nausea or vomiting. Patient denies having any fevers chills or rigors. No chest pain or palpitations, no cough or difficulty in breathing. No dysuria or hematuria. On reviewing his vitals temperature of 97.6, heart rate 79, respiratory rate 17, blood pressure 150/76, saturating 97% on room air. Labs from this morning showed white count of 11.4, hemoglobin 9.6, platelets 191. Sodium 141, potassium 4.2, chloride 106, bicarb 26, BUN 20, creatinine 0.6. 09/24/2020 Patient is currently lying in the bed comfortably. Abdominal discomfort is improving but still having right lower quadrant pain. Patient did have 2-3 loose nonbloody bowel movements yesterday evening. Otherwise patient has been afebrile. No complaints of chest pain or shortness of breath. Laboratory data showed WBC 10.8 hemoglobin 9.7 platelets 230 Patient is being continued IV hydration and methylprednisolone 20 mg IV every 8. GI and general surgery is on board. 09/25/2020 Patient is currently lying in the bed. Abdominal pain is much improved. Patient did have a small bowel movement and denied any blood today. No complaints of nausea or vomiting. Able to pass flatus. Patient was started on liquid diet today. Advance as tolerated. Patient has been afebrile. No chest pain or shortness of breath. Laboratory data showed WBC 6.7 hemoglobin 9.2 platelets 140 BUN 16 and creatinine 0.7 CRP less than 0.4 today. Patient is on IV steroids 20 mg every 8. Current medications reviewed. Objective - Vital Signs Vital signs: Vital Signs Temp 97.8 F 09/25/20 19:11 Pulse 68 09/25/20 22:22 Resp 18 09/25/20 22:22 BP 134/79 09/25/20 19:11 Pulse Ox 98 09/25/20 22:12 Intake & Output 09/25/20 09/25/20 09/26/20 06:59 18:59 06:59 Intake Total 840 Balance 840 Weight 84.822 kg Intake: Oral 840 Other: Voiding Method Toilet Toilet Toilet # Voids 6 3 # Bowel Movements 1 1 - Exam GENERAL: The patient is alert and oriented x3, not in any acute distress. Well developed, well nourished. HEENT: Pupils are round and equally reacting to light. EOMI. No scleral icterus. No conjunctival pallor. CARDIOVASCULAR: S1 and S2 present. No murmurs, rubs, or gallops. PULMONARY: Chest is clear to auscultation, no wheezing or crackles. -ABDOMEN: Midline abdominal scar with small reducible hernia . Soft, mild abdominal tenderness, no rebound tenderness or guarding, nondistended, normoactive bowel sounds. MUSCULOSKELETAL: No joint swelling or deformity. EXTREMITIES: No cyanosis, clubbing, or pedal edema. NEUROLOGICAL: Gross neurological examination did not reveal any focal deficits. SKIN: No rashes. no petechiae. - Labs CBC & Chem 7: 09/25/20 05:50 09/25/20 05:50 Labs: Abnormal Lab Results - Last 24 Hours (Table) 09/25/20 09/25/20 09/25/20 Range/Units 05:50 05:50 07:44 RBC 2.67 L (4.40-5.60) X 10*6/uL Hgb 9.2 L (13.0-17.0) g/dL Hct 28.3 L (39.6-50.0) % MCV 106.0 H (80.0-97.0) fL MCH 34.5 H (27.0-32.0) pg RDW 15.2 H (11.5-14.5) % Absolute Nucleated RBC 0.03 H (0.00-0.00) X 10*3/uL Immature Gran # 0.22 H (0.00-0.04) X 10*3/uL Eosinophils # 0.01 L (0.04-0.35) X 10*3/uL NRBC/100 WBC Diff 0.4 H (0.0-0.0) /100 WBCS ESR 34 H (0-20) mm/Hr Anion Gap 12.40 H (4.00-12.00) mmol/L BUN/Creatinine Ratio 22.86 H (12.00-20.00) Ratio Glucose 156 H (70-110) mg/dL POC Glucose (mg/dL) 125 H (75-99) mg/dL Calcium 7.7 L (8.7-10.3) mg/dL 09/25/20 09/25/20 09/25/20 Range/Units 11:33 16:19 20:30 RBC (4.40-5.60) X 10*6/uL Hgb (13.0-17.0) g/dL Hct (39.6-50.0) % MCV (80.0-97.0) fL MCH (27.0-32.0) pg RDW (11.5-14.5) % Absolute Nucleated RBC (0.00-0.00) X 10*3/uL Immature Gran # (0.00-0.04) X 10*3/uL Eosinophils # (0.04-0.35) X 10*3/uL NRBC/100 WBC Diff (0.0-0.0) /100 WBCS ESR (0-20) mm/Hr Anion Gap (4.00-12.00) mmol/L BUN/Creatinine Ratio (12.00-20.00) Ratio Glucose (70-110) mg/dL POC Glucose (mg/dL) 257 H 163 H 135 H (75-99) mg/dL Calcium (8.7-10.3) mg/dL Assessment and Plan Assessment: -Acute exacerbation of Crohn's with small bowel obstruction due to strictures -Lactic acidosis - probably due to above - improved. continue with IV fluids -UTI -Urine cultures positive for group D enterococcus -Incidental finding of right-sided nephrolithiasis nonobstructive -CVA/TIA in the past - history of DVT in the past -Gastroesophageal reflux disease -Asthma without any acute exacerbation -Seizure disorder for which patient is on Keppra which will be continued -Hypertension -DVT prophylaxis with sub cutaneous heparin PLAN: Patient's urine culture is positive for group B enterococcus and patient has penicillin ALLERGIES, ID Dr. Park evaluated the patient and was initilally started him on vancomycin. Possible colonization. Being monitored off antibiotics. Continue with IV fluids. Patient's Solu-Medrol has been decreased to 20 mg IV every 8 hours by GI this morning and they ordered an ultrasound of the gallbladder-rShowed nonspecific pattern seen with hepatitis or hepatocellular disease. 1.2 cm renal stone right. Gallbladder is absent and common bile duct is dilated 1.7 cm. Abdominal x-ray showed nonspecific abdominal. Persistent dilated small and large bowel loops. Nonspecific pattern. Right upper quadrant calcifications stable compatible with known right renal calculus. Bilateral lower lobe infiltrate and small effusion.. Patient was started on liquid diet and advance as tolerated. Heparin for DVT prophylaxis. Protonix for GI prophylaxis. GI and Gen surgery is on board. continue to to follow closely..
[2020-09-26] MEDS: SODIUM CHLORIDE 0.9% 1,000 ML IV SCH ×2 (02:39→14:58)
[2020-09-26] MEDS: METOCLOPRAMIDE 5 MG/ML 2 ML VIAL IVP SCH ×4 (05:15→23:43)
[2020-09-26 07:05] LABS: Basophils % (A) 0 %; Eosinophils % (A) 0 %; HCT 29.3 % (39.0-53.0); Lymphocytes % (A) 18 %; MCH 36.5 pg (25.0-35.0); MCHC 34.3 g/dL (31.0-37.0); MCV 106.3 fL (80.0-100.0); Macrocytosis Moderate; Mean Platelet Volume 7.2; Monocytes # (A) 0.4 k/uL (0-1.0); Monocytes % (A) 7 %; Neutrophils % (A) 73 %; Platelet Count 204 k/uL (150-450); RBC 2.75 m/uL (4.30-5.90); WBC 5.5 k/uL (3.8-10.6)
[2020-09-26 07:21] LABS: African American GFR (CKD) >90 (>60 ml/min/1.73 sqM); Anion Gap 6 mmol/L; Blood Urea Nitrogen 11 mg/dL (9-20); Calcium 7.7 mg/dL (8.4-10.2); Carbon Dioxide 25 mmol/L (22-30); Chloride 107 mmol/L (98-107); Glucose 159 mg/dL (74-99); Non-African American GFR(CKD) >90 (>60 ml/min/1.73 sqM); Potassium 3.6 mmol/L (3.5-5.1); Sodium 138 mmol/L (137-145)
[2020-09-26] MEDS: methylPREDNISolone SOD SUCCI 40 MG/ML 1 ML VIAL IV SCH ×3 (07:26→23:43)
[2020-09-26] MEDS: HEPARIN SODIUM,PORCINE/PF 5,000 UNIT/0.5 ML SYRINGE SQ SCH ×3 (07:27→23:43)
[2020-09-26] MEDS: PANTOPRAZOLE 40 MG TABLET PO SCH ×2 (07:27→20:52)
[2020-09-26] MEDS: INSULIN ASPART (NovoLOG) 100 UNIT/ML VIAL SQ SCH ×7 (07:27→20:52)
[2020-09-26] MEDS: levETIRAcetam 500 MG TAB PO SCH ×2 (07:27→20:52)
[2020-09-26 07:31] LABS: Glucose,Whole Blood 156 mg/dL (75-99)
[2020-09-26] MEDS: HYDROmorphone 0.5 MG/0.5 ML SYRINGE IVP PRN ×3 (07:43→20:58)
[2020-09-26] MEDS: SYMBICORT 160-4.5 MCG INHALER INHALATION SCH ×2 (09:39→21:31)
[2020-09-26] MEDS: ALBUTEROL NEBULIZED 2.5 MG/3 ML INHALATION PRN ×4 (09:39→21:31)
--- NOTE | 2020-09-26 10:43 | P.PN ---
<Jessica Bland - Last Filed: 09/26/20 10:40> Subjective Progress Note Date: 09/26/20 CHIEF COMPLAINT: Small bowel obstruction HISTORY OF PRESENT ILLNESS: Surgical service is following regards patient's small bowel obstruction. He is also being treated for Crohn's during this admission and is on IV steroids. Discussed case with GI service. They're planning on switching patient from IV steroids to oral prednisone tomorrow. Patient tolerated his full liquid breakfast this morning. He reports minimal pain in the right mid abdomen. Patient has been having loose stools which he states is his usual because of his Crohn's. He denies any blood in his stools. Having some flatus. He has had decrease in his abdominal pain since admission. Pain is mostly near the umbilicus on the right side. He denies any nausea or vomiting. Afebrile WBC 5.5 hemoglobin is 10 platelets 204 PHYSICAL EXAM: VITAL SIGNS: Reviewed. GENERAL: Well-developed in no acute distress. HEENT: No sclera icterus. Extraocular movements grossly intact. Moist buccal mucosa. Head is atraumatic, normocephalic. ABDOMEN: Soft. Nondistended. Mild tenderness with palpation of the mid abdomen on the right side of the umbilicus NEUROLOGIC: Alert and oriented. Cranial nerves II through XII grossly intact. ASSESSMENT: 1. Small bowel obstruction 2. Crohn's exacerbation PLAN: -Continue full liquid diet -Continue steroids for Crohn's exacerbation per GI recommendations -Continue supportive care -Continue pain medication as needed -Encourage patient to ambulate -GI prophylaxis Protonix and DVT prophylaxis subcu heparin Physician A[employer] note has been reviewed by physician. Signing provider agrees with the documented findings, assessment, and plan of care. Objective - Vital Signs Vital signs: Vital Signs Temp 98.0 F 09/26/20 08:00 Pulse 56 L 09/26/20 09:49 Resp 16 09/26/20 08:00 BP 133/75 09/26/20 08:00 Pulse Ox 97 09/26/20 08:00 Intake & Output 09/25/20 09/26/20 09/26/20 18:59 06:59 18:59 Intake Total 840 Balance 840 Weight 84.822 kg Intake: Oral 840 Other: Voiding Method Toilet Toilet Toilet # Voids 3 3 3 # Bowel Movements 1 2 - Labs CBC & Chem 7: 06/17/21 06:36 09/26/20 06:36 Labs: Abnormal Lab Results - Last 24 Hours (Table) 09/25/20 09/25/20 09/25/20 Range/Units 05:50 05:50 11:33 RBC 2.67 L (4.40-5.60) X 10*6/uL Hgb 9.2 L (13.0-17.0) g/dL Hct 28.3 L (39.6-50.0) % MCV 106.0 H (80.0-97.0) fL MCH 34.5 H (27.0-32.0) pg RDW 15.2 H (11.5-14.5) % Absolute Nucleated RBC 0.03 H (0.00-0.00) X 10*3/uL Immature Gran # 0.22 H (0.00-0.04) X 10*3/uL Eosinophils # 0.01 L (0.04-0.35) X 10*3/uL NRBC/100 WBC Diff 0.4 H (0.0-0.0) /100 WBCS ESR 34 H (0-20) mm/Hr Anion Gap 12.40 H (4.00-12.00) mmol/L BUN/Creatinine Ratio 22.86 H (12.00-20.00) Ratio Glucose 156 H (70-110) mg/dL POC Glucose (mg/dL) 257 H (75-99) mg/dL Calcium 7.7 L (8.7-10.3) mg/dL 09/25/20 09/25/20 09/26/20 Range/Units 16:19 20:30 06:36 RBC 2.75 L (4.40-5.60) X 10*6/uL Hgb 10.0 L D (13.0-17.0) g/dL Hct 29.3 L (39.6-50.0) % MCV 106.3 H (80.0-97.0) fL MCH 36.5 H (27.0-32.0) pg RDW 16.0 H (11.5-14.5) % Absolute Nucleated RBC (0.00-0.00) X 10*3/uL Immature Gran # (0.00-0.04) X 10*3/uL Eosinophils # (0.04-0.35) X 10*3/uL NRBC/100 WBC Diff (0.0-0.0) /100 WBCS ESR (0-20) mm/Hr Anion Gap (4.00-12.00) mmol/L BUN/Creatinine Ratio (12.00-20.00) Ratio Glucose (70-110) mg/dL POC Glucose (mg/dL) 163 H 135 H (75-99) mg/dL Calcium (8.7-10.3) mg/dL 09/26/20 09/26/20 Range/Units 06:36 07:20 RBC (4.40-5.60) X 10*6/uL Hgb (13.0-17.0) g/dL Hct (39.6-50.0) % MCV (80.0-97.0) fL MCH (27.0-32.0) pg RDW (11.5-14.5) % Absolute Nucleated RBC (0.00-0.00) X 10*3/uL Immature Gran # (0.00-0.04) X 10*3/uL Eosinophils # (0.04-0.35) X 10*3/uL NRBC/100 WBC Diff (0.0-0.0) /100 WBCS ESR (0-20) mm/Hr Anion Gap (4.00-12.00) mmol/L BUN/Creatinine Ratio (12.00-20.00) Ratio Glucose 159 H (70-110) mg/dL POC Glucose (mg/dL) 156 H (75-99) mg/dL Calcium 7.7 L (8.7-10.3) mg/dL <Edgar Emerson - Last Filed: 09/26/20 14:25> Subjective As above. Patient doing well. He has had multiple loose stools. Tolerated diet. Says his pain is improving. Hopefully discharge tomorrow. Objective - Vital Signs Vital signs: Vital Signs Temp 98.0 F 09/26/20 08:00 Pulse 60 09/26/20 12:54 Resp 16 09/26/20 08:00 BP 133/75 09/26/20 08:00 Pulse Ox 97 09/26/20 08:00 Intake & Output 09/25/20 09/26/20 09/26/20 18:59 06:59 18:59 Intake Total 840 Balance 840 Weight 84.822 kg Intake: Oral 840 Other: Voiding Method Toilet Toilet Toilet # Voids 3 3 3 # Bowel Movements 1 2 - Labs CBC & Chem 7: 09/26/20 06:36 09/26/20 06:36 Labs: Abnormal Lab Results - Last 24 Hours (Table) 09/25/20 09/25/20 09/25/20 Range/Units 05:50 05:50 16:19 RBC (4.30-5.90) m/uL Hgb (13.0-17.5) gm/dL Hct (39.0-53.0) % MCV (80.0-100.0) fL MCH (25.0-35.0) pg RDW (11.5-15.5) % ESR 34 H (0-20) mm/Hr Anion Gap 12.40 H (4.00-12.00) mmol/L BUN/Creatinine Ratio 22.86 H (12.00-20.00) Ratio Glucose 156 H (70-110) mg/dL POC Glucose (mg/dL) 163 H (75-99) mg/dL Calcium 7.7 L (8.7-10.3) mg/dL 09/25/20 09/26/20 09/26/20 Range/Units 20:30 06:36 06:36 RBC 2.75 L (4.30-5.90) m/uL Hgb 10.0 L D (13.0-17.5) gm/dL Hct 29.3 L (39.0-53.0) % MCV 106.3 H (80.0-100.0) fL MCH 36.5 H (25.0-35.0) pg RDW 16.0 H (11.5-15.5) % ESR (0-20) mm/Hr Anion Gap (4.00-12.00) mmol/L BUN/Creatinine Ratio (12.00-20.00) Ratio Glucose 159 H (70-110) mg/dL POC Glucose (mg/dL) 135 H (75-99) mg/dL Calcium 7.7 L (8.7-10.3) mg/dL 09/26/20 09/26/20 Range/Units 07:20 11:31 RBC (4.30-5.90) m/uL Hgb (13.0-17.5) gm/dL Hct (39.0-53.0) % MCV (80.0-100.0) fL MCH (25.0-35.0) pg RDW (11.5-15.5) % ESR (0-20) mm/Hr Anion Gap (4.00-12.00) mmol/L BUN/Creatinine Ratio (12.00-20.00) Ratio Glucose (70-110) mg/dL POC Glucose (mg/dL) 156 H 233 H (75-99) mg/dL Calcium (8.7-10.3) mg/dL Assessment and Plan (1) Small bowel obstruction Current Visit: Yes Status: Acute Code(s): K56.609 - UNSP INTESTNL OBST, UNSP TO PARTIAL VERSUS COMPLETE OBST SNOMED Code(s): 031984581
[2020-09-26 11:33] LABS: Glucose,Whole Blood 233 mg/dL (75-99)
--- NOTE | 2020-09-26 12:37 | P.PN ---
Subjective Progress Note Date: 09/26/20 Principal diagnosis: Crohn's exacerbation She was seen and examined at the bedside. He states abdominal pain continues to improve. He was advanced to a full liquid diet this morning by general surgery, patient states he tolerated it well. He denies any bloody bowel movements, states he had 2 more loose watery stools this morning. He denies any nausea or vomiting. Objective - Vital Signs Vital signs: Vital Signs Temp 98.0 F 09/26/20 08:00 Pulse 56 L 09/26/20 08:00 Resp 16 09/26/20 08:00 BP 133/75 09/26/20 08:00 Pulse Ox 97 09/26/20 08:00 Intake & Output 09/25/20 09/26/20 09/26/20 18:59 06:59 18:59 Intake Total 840 Balance 840 Weight 84.822 kg Intake: Oral 840 Other: Voiding Method Toilet Toilet # Voids 3 3 # Bowel Movements 1 2 - Exam General appearance: The patient is alert, oriented, appears in no acute distress. HET: Head is normocephalic and atraumatic. Conjunctiva pink. Sclera anicteric. Neck: Supple without lymphadenopathy. Abdomen: Soft, right lower quadrant tenderness, nondistended with bowel sounds. No guarding or rigidity. Extremities: Normal skin color and turgor. No pedal edema Skin: No rashes, no jaundice Neurological: No focal deficits. Alert and oriented 3. - Labs CBC & Chem 7: 09/26/20 06:36 09/26/20 06:36 Labs: Abnormal Lab Results - Last 24 Hours (Table) 09/25/20 09/25/20 09/25/20 Range/Units 05:50 05:50 11:33 RBC 2.67 L (4.40-5.60) X 10*6/uL Hgb 9.2 L (13.0-17.0) g/dL Hct 28.3 L (39.6-50.0) % MCV 106.0 H (80.0-97.0) fL MCH 34.5 H (27.0-32.0) pg RDW 15.2 H (11.5-14.5) % Absolute Nucleated RBC 0.03 H (0.00-0.00) X 10*3/uL Immature Gran # 0.22 H (0.00-0.04) X 10*3/uL Eosinophils # 0.01 L (0.04-0.35) X 10*3/uL NRBC/100 WBC Diff 0.4 H (0.0-0.0) /100 WBCS ESR 34 H (0-20) mm/Hr Anion Gap 12.40 H (4.00-12.00) mmol/L BUN/Creatinine Ratio 22.86 H (12.00-20.00) Ratio Glucose 156 H (70-110) mg/dL POC Glucose (mg/dL) 257 H (75-99) mg/dL Calcium 7.7 L (8.7-10.3) mg/dL 09/25/20 09/25/20 09/26/20 Range/Units 16:19 20:30 06:36 RBC 2.75 L (4.40-5.60) X 10*6/uL Hgb 10.0 L D (13.0-17.0) g/dL Hct 29.3 L (39.6-50.0) % MCV 106.3 H (80.0-97.0) fL MCH 36.5 H (27.0-32.0) pg RDW 16.0 H (11.5-14.5) % Absolute Nucleated RBC (0.00-0.00) X 10*3/uL Immature Gran # (0.00-0.04) X 10*3/uL Eosinophils # (0.04-0.35) X 10*3/uL NRBC/100 WBC Diff (0.0-0.0) /100 WBCS ESR (0-20) mm/Hr Anion Gap (4.00-12.00) mmol/L BUN/Creatinine Ratio (12.00-20.00) Ratio Glucose (70-110) mg/dL POC Glucose (mg/dL) 163 H 135 H (75-99) mg/dL Calcium (8.7-10.3) mg/dL 09/26/20 09/26/20 Range/Units 06:36 07:20 RBC (4.40-5.60) X 10*6/uL Hgb (13.0-17.0) g/dL Hct (39.6-50.0) % MCV (80.0-97.0) fL MCH (27.0-32.0) pg RDW (11.5-14.5) % Absolute Nucleated RBC (0.00-0.00) X 10*3/uL Immature Gran # (0.00-0.04) X 10*3/uL Eosinophils # (0.04-0.35) X 10*3/uL NRBC/100 WBC Diff (0.0-0.0) /100 WBCS ESR (0-20) mm/Hr Anion Gap (4.00-12.00) mmol/L BUN/Creatinine Ratio (12.00-20.00) Ratio Glucose 159 H (70-110) mg/dL POC Glucose (mg/dL) 156 H (75-99) mg/dL Calcium 7.7 L (8.7-10.3) mg/dL Assessment and Plan (1) Exacerbation of Crohn's disease Narrative/Plan: 65-year-old white male who presented to the emergency department 3 days ago for abdominal pain nausea, vomiting, and diarrhea. Patient has a past smoker comorbidities including past medical history of Crohn's disease diagnosed in the 1979. He currently states he is not on any medications. He has been following with care bleeding from gastroenterology and has been in the past on Remicade, Humira, Entivio and Entocort, states his last biologic was Cymzia. He states he has been having problems with coverage on his Biologics. These his last treatment was with steroids approximately 2 months ago. He denies any bright red blood or blood in his stool. He is vomiting has improved, patient still has some nausea and pain in the right upper quadrant. He had a small bowel movement yesterday of liquid stool. He had a CT of the abdomen and pelvis that shows small bowel obstruction is stable nonobstructing right renal calculus, and postcholecystectomy with central biliary dilation which may reflect postcholecystectomy change versus distal common duct obstruction. Liver enzymes are normal. He states his last EGD was a few years ago done at [facility]. He underwent a colonoscopy in June 2019 with with moderate ileitis with multiple superficial ulcerations noted in the ileum and at the ileocolonic anastomosis with biopsies of ileum taken. Otherwise normal-looking colon. Gen. surgery is on consult for small bowel obstruction. C-reactive protein and sed rate ordered. Current Visit: Yes Status: Acute Code(s): K50.90 - CROHN'S DISEASE, UNSPECIFIED, WITHOUT COMPLICATIONS SNOMED Code(s): 10629259 (2) Small bowel obstruction Narrative/Plan: Gen. surgery on consult. Repeat abdominal x-ray ordered. Symptoms improving. Current Visit: Yes Status: Acute Code(s): K56.609 - UNSP INTESTNL OBST, UNSP TO PARTIAL VERSUS COMPLETE OBST SNOMED Code(s): 493137132 (3) Abdominal pain Current Visit: No Status: Acute Code(s): R10.9 - UNSPECIFIED ABDOMINAL PAIN SNOMED Code(s): 51750451 Plan: 1. Continue symptomatic and supportive care 2. Continue with recommendations from general surgery 3. Discontinue Solu-Medrol IV this evening, start prednisone 40 mg daily tomorrow 4. Continue antibiotics as ordered 5. CT of abdomen reviewed 7. Ultrasound of gallbladder reviewed 8. Diet was advanced to full liquid diet 9. Abdominal x-ray ordered and reviewed 10. CBD dilation likely related to postcholecystectomy, repeat LFTs are within normal limits. No further workup indicated. 11. Patient will need long tapered dose of steroids upon discharge, follow-up with Noreen Almodovar with gastroenterology Dr. Radha Wade I agree with the dictator's note, documented as a scribe by Colleen Urrutia.
[2020-09-26 17:00] LABS: Glucose,Whole Blood 238 mg/dL (75-99)
[2020-09-26 20:37] LABS: Glucose,Whole Blood 225 mg/dL (75-99)
[2020-09-27] MEDS: HYDROmorphone 0.5 MG/0.5 ML SYRINGE IVP PRN ×2 (03:15→08:31)
[2020-09-27] MEDS: SODIUM CHLORIDE 0.9% 1,000 ML IV SCH (04:53)
[2020-09-27] MEDS: METOCLOPRAMIDE 5 MG/ML 2 ML VIAL IVP SCH ×2 (06:01→13:19)
[2020-09-27 07:09] LABS: Glucose,Whole Blood 163 mg/dL (75-99)
[2020-09-27 07:38] VITALS: RESP 18
[2020-09-27] MEDS: SYMBICORT 160-4.5 MCG INHALER INHALATION SCH (08:14)
[2020-09-27] MEDS: INSULIN ASPART (NovoLOG) 100 UNIT/ML VIAL SQ SCH ×4 (08:24→12:36)
[2020-09-27] MEDS: PANTOPRAZOLE 40 MG TABLET PO SCH (08:24)
[2020-09-27] MEDS: levETIRAcetam 500 MG TAB PO SCH (08:25)
[2020-09-27] MEDS: HEPARIN SODIUM,PORCINE/PF 5,000 UNIT/0.5 ML SYRINGE SQ SCH (08:25)
[2020-09-27] MEDS ORDERED: predniSONE 20 MG TAB PO SCH (09:00)
--- NOTE | 2020-09-27 09:00 | P.PN ---
Subjective Progress Note Date: 09/27/20 Principal diagnosis: Crohn's exacerbation patient is seen and examined lying in bed. He states his pain continues to improve. He continues to have loose bowel movements, nonbloody. He denies any nausea or vomiting. Objective - Vital Signs Vital signs: Vital Signs Temp 97.9 F 09/27/20 07:37 Pulse 58 L 09/27/20 07:37 Resp 18 09/27/20 07:37 BP 150/75 09/27/20 07:37 Pulse Ox 97 09/27/20 07:37 Intake & Output 09/26/20 09/27/20 09/27/20 18:59 06:59 18:59 Other: Voiding Method Toilet Toilet # Voids 3 2 - Exam General appearance: The patient is alert, oriented, appears in no acute distress. HET: Head is normocephalic and atraumatic. Conjunctiva pink. Sclera anicteric. Neck: Supple without lymphadenopathy. Abdomen: Soft, mild right lower quadrant tenderness, nondistended with bowel sounds. No guarding or rigidity. Extremities: Normal skin color and turgor. No pedal edema Skin: No rashes, no jaundice Neurological: No focal deficits. Alert and oriented 3. - Labs CBC & Chem 7: 09/26/20 06:36 09/26/20 06:36 Labs: Abnormal Lab Results - Last 24 Hours (Table) 09/26/20 09/26/20 09/26/20 Range/Units 11:31 16:59 20:35 POC Glucose (mg/dL) 233 H 238 H 225 H (75-99) mg/dL 09/27/20 Range/Units 07:08 POC Glucose (mg/dL) 163 H (75-99) mg/dL Assessment and Plan (1) Exacerbation of Crohn's disease Narrative/Plan: 65-year-old white male who presented to the emergency department 3 days ago for abdominal pain nausea, vomiting, and diarrhea. Patient has a past smoker comorbidities including past medical history of Crohn's disease diagnosed in the 1979. He currently states he is not on any medications. He has been following with care bleeding from gastroenterology and has been in the past on Remicade, Humira, Entivio and Entocort, states his last biologic was Cymzia. He states he has been having problems with coverage on his Biologics. These his last treatment was with steroids approximately 2 months ago. He denies any bright red blood or blood in his stool. He is vomiting has improved, patient still has some nausea and pain in the right upper quadrant. He had a small bowel movement yesterday of liquid stool. He had a CT of the abdomen and pelvis that shows small bowel obstruction is stable nonobstructing right renal calculus, and postcholecystectomy with central biliary dilation which may reflect postcholecystectomy change versus distal common duct obstruction. Liver enzymes are normal. He states his last EGD was a few years ago done at [facility]. He underwent a colonoscopy in June 2019 with with moderate ileitis with multiple superficial ulcerations noted in the ileum and at the ileocolonic anastomosis with biopsies of ileum taken. Otherwise normal-looking colon. Gen. surgery is on consult for small bowel obstruction. C-reactive protein and sed rate ordered. Current Visit: Yes Status: Acute Code(s): K50.90 - CROHN'S DISEASE, UNSPECIFIED, WITHOUT COMPLICATIONS SNOMED Code(s): 43015689 (2) Small bowel obstruction Narrative/Plan: Gen. surgery on consult. Repeat abdominal x-ray ordered. Symptoms improving. Current Visit: Yes Status: Acute Code(s): K56.609 - UNSP INTESTNL OBST, UNSP TO PARTIAL VERSUS COMPLETE OBST SNOMED Code(s): 383005881 (3) Abdominal pain Current Visit: No Status: Acute Code(s): R10.9 - UNSPECIFIED ABDOMINAL PAIN SNOMED Code(s): 80801981 Plan: 1. Continue symptomatic and supportive care 2. Continue with recommendations from general surgery 3. Prednisone 40 mg by mouth daily 4. Advance diet as tolerated 5. Patient will need long tapered dose of steroids upon discharge, follow-up with Noreen Almodovar with gastroenterology Thank you for this consultation, the patient may be discharged home from a gastroenterology standpoint Dr. Radha Wade I agree with the dictator's note, documented as a scribe by Colleen Urrutia.
[2020-09-27 09:09] LABS: HGB 9.3 g/dL (13.0-17.0); MCH 34.8 pg (27.0-32.0); MCHC 33.2 g/dL (32.0-37.0); MCV 104.9 fL (80.0-97.0); Platelet Count 177 X 10*3/uL (140-440); RBC 2.67 X 10*6/uL (4.40-5.60); RDW 14.9 % (11.5-14.5); WBC 5.71 X 10*3/uL (4.50-10.00)
[2020-09-27 09:26] LABS: Anion Gap 7.6 mmol/L (4.00-12.00); BUN/Creat Ratio 15.71 Ratio (12.00-20.00); Calcium 7.8 mg/dL (8.7-10.3); Carbon Dioxide 24.4 mmol/L (21.6-31.8); Non-African American GFR(CKD) 98.3 (60.0-200.0); Potassium 3.8 mmol/L (3.5-5.5)
--- NOTE | 2020-09-27 10:00 | P.PN ---
<Jessica Bland - Last Filed: 09/27/20 09:52> Subjective Progress Note Date: 09/27/20 CHIEF COMPLAINT: Small bowel obstruction HISTORY OF PRESENT ILLNESS: Surgical service is following regards patient's small bowel obstruction. He is also being treated for Crohn's during this admission and was switched over from IV steroids to oral prednisone this morning. Patient tolerated his full liquid diet. He denies any nausea or vomiting. Denies any increase in abdominal pain. He does still have right sided abdominal pain. Patient does report that each day his pain is improving. However, he did require a dose of IV Dilaudid this morning. He is having loose stools which he reports is his normal. He denies any blood in his stools. Having some flatus. Afebrile. WBC 5.71 hemoglobin 9.3 PHYSICAL EXAM: VITAL SIGNS: Reviewed. GENERAL: Well-developed in no acute distress. HEENT: No sclera icterus. Extraocular movements grossly intact. Moist buccal mucosa. Head is atraumatic, normocephalic. ABDOMEN: Soft. Nondistended. Mild tenderness with palpation of the mid abdomen on the right side of the umbilicus NEUROLOGIC: Alert and oriented. Cranial nerves II through XII grossly intact. ASSESSMENT: 1. Small bowel obstruction 2. Crohn's exacerbation PLAN: -Agree with GI services advancement to carb consistent diet -Anticipate discharge possibly today -Continue steroids for Crohn's exacerbation per GI recommendations -Continue supportive care -Continue pain medication as needed -Encourage patient to ambulate -GI prophylaxis Protonix and DVT prophylaxis subcu heparin Physician Agricultural Produce Packer note has been reviewed by physician. Signing provider agrees with the documented findings, assessment, and plan of care. Objective - Vital Signs Vital signs: Vital Signs Temp 97.9 F 09/27/20 07:37 Pulse 58 L 09/27/20 07:37 Resp 18 09/27/20 07:37 BP 150/75 09/27/20 07:37 Pulse Ox 97 09/27/20 07:37 Intake & Output 09/26/20 09/27/20 09/27/20 18:59 06:59 18:59 Other: Voiding Method Toilet Toilet # Voids 3 2 - Labs CBC & Chem 7: 09/27/20 05:52 09/27/20 05:52 Labs: Abnormal Lab Results - Last 24 Hours (Table) 09/26/20 09/26/20 09/26/20 Range/Units 11:31 16:59 20:35 RBC (4.40-5.60) X 10*6/uL Hgb (13.0-17.0) g/dL Hct (39.6-50.0) % MCV (80.0-97.0) fL MCH (27.0-32.0) pg RDW (11.5-14.5) % Absolute Nucleated RBC (0.00-0.00) X 10*3/uL NRBC/100 WBC Diff (0.0-0.0) /100 WBCS Glucose (70-110) mg/dL POC Glucose (mg/dL) 233 H 238 H 225 H (75-99) mg/dL Calcium (8.7-10.3) mg/dL 09/27/20 09/27/20 09/27/20 Range/Units 05:52 05:52 07:08 RBC 2.67 L (4.40-5.60) X 10*6/uL Hgb 9.3 L (13.0-17.0) g/dL Hct 28.0 L (39.6-50.0) % MCV 104.9 H (80.0-97.0) fL MCH 34.8 H (27.0-32.0) pg RDW 14.9 H (11.5-14.5) % Absolute Nucleated RBC 0.06 H (0.00-0.00) X 10*3/uL NRBC/100 WBC Diff 1.1 H (0.0-0.0) /100 WBCS Glucose 170 H (70-110) mg/dL POC Glucose (mg/dL) 163 H (75-99) mg/dL Calcium 7.8 L (8.7-10.3) mg/dL <Edgar Emerson - Last Filed: 09/27/20 10:48> Subjective As above. Patient doing well. He is tolerating his diet. Anticipate discharge today. We'll sign off. Please call if needed. Objective - Vital Signs Vital signs: Vital Signs Temp 97.9 F 09/27/20 07:37 Pulse 58 L 09/27/20 07:37 Resp 18 09/27/20 07:37 BP 150/75 09/27/20 07:37 Pulse Ox 97 09/27/20 07:37 Intake & Output 09/26/20 09/27/20 09/27/20 18:59 06:59 18:59 Other: Voiding Method Toilet Toilet # Voids 3 2 - Labs CBC & Chem 7: 09/27/20 05:52 09/27/20 05:52 Labs: Abnormal Lab Results - Last 24 Hours (Table) 09/26/20 09/26/20 09/26/20 Range/Units 11:31 16:59 20:35 RBC (4.40-5.60) X 10*6/uL Hgb (13.0-17.0) g/dL Hct (39.6-50.0) % MCV (80.0-97.0) fL MCH (27.0-32.0) pg RDW (11.5-14.5) % Absolute Nucleated RBC (0.00-0.00) X 10*3/uL Lymphocytes # (Manual) (0.90-5.00) X 10*3/uL Monocytes # (Manual) (0.20-1.00) X 10*3/uL Eosinophils # (Manual) (0.04-0.35) X 10*3/uL NRBC/100 WBC Diff (0.0-0.0) /100 WBCS Glucose (70-110) mg/dL POC Glucose (mg/dL) 233 H 238 H 225 H (75-99) mg/dL Calcium (8.7-10.3) mg/dL 09/27/20 09/27/20 09/27/20 Range/Units 05:52 05:52 07:08 RBC 2.67 L (4.40-5.60) X 10*6/uL Hgb 9.3 L (13.0-17.0) g/dL Hct 28.0 L (39.6-50.0) % MCV 104.9 H (80.0-97.0) fL MCH 34.8 H (27.0-32.0) pg RDW 14.9 H (11.5-14.5) % Absolute Nucleated RBC 0.06 H (0.00-0.00) X 10*3/uL Lymphocytes # (Manual) 0.63 L (0.90-5.00) X 10*3/uL Monocytes # (Manual) 0.17 L (0.20-1.00) X 10*3/uL Eosinophils # (Manual) 0 L (0.04-0.35) X 10*3/uL NRBC/100 WBC Diff 1.1 H (0.0-0.0) /100 WBCS Glucose 170 H (70-110) mg/dL POC Glucose (mg/dL) 163 H (75-99) mg/dL Calcium 7.8 L (8.7-10.3) mg/dL Assessment and Plan (1) Small bowel obstruction Current Visit: Yes Status: Acute Code(s): K56.609 - UNSP INTESTNL OBST, UNSP TO PARTIAL VERSUS COMPLETE OBST SNOMED Code(s): 308831533
[2020-09-27 10:46] LABS: Basophils # (M) 0 X 10*3/uL (0.00-0.10); Eosinophils # (M) 0 X 10*3/uL (0.04-0.35); Lymphocytes # (M) 0.63 X 10*3/uL (0.90-5.00); Macrocytosis (M) 2+; Monocytes # (M) 0.17 X 10*3/uL (0.20-1.00); Neutrophils # (M) 4.91 X 10*3/uL (2.00-8.90); Neutrophils % (M) 86 %
[2020-09-27 12:01] LABS: Glucose,Whole Blood 174 mg/dL (75-99)
[2020-09-27 14:05] VITALS: BP 165/80; PULSE 60; TEMP 98.2
== END 2020-09-27 15:38 | disposition home or self-care (01) | DRG 386 ==
LOC: EC 23:07 → 4SSUR 09-21 02:45
PROVIDERS: ADMIT Internal Medicine; ATTEND Internal Medicine
DX: K50.90 Crohn's disease, unspecified, without complications (principal); E87.2 Acidosis; K56.609 Unspecified intestinal obstruction, unspecified as to partial versus complete obstruction; K63.3 Ulcer of intestine; N39.0 Urinary tract infection, site not specified; B95.2 Enterococcus as the cause of diseases classified elsewhere; D75.89 Other specified diseases of blood and blood-forming organs; E11.9 Type 2 diabetes mellitus without complications; G40.909 Epilepsy, unspecified, not intractable, without status epilepticus; I10 Essential (primary) hypertension; J45.909 Unspecified asthma, uncomplicated; K21.9 Gastro-esophageal reflux disease without esophagitis; K42.9 Umbilical hernia without obstruction or gangrene; K86.89 Other specified diseases of pancreas; N20.0 Calculus of kidney; K91.5 Postcholecystectomy syndrome; Z79.4 Long term (current) use of insulin; Z20.822 Contact with and (suspected) exposure to COVID-19; Z79.51 Long term (current) use of inhaled steroids; Z79.899 Other long term (current) drug therapy; Z86.718 Personal history of other venous thrombosis and embolism; Z86.73 Personal history of transient ischemic attack (TIA), and cerebral infarction without residual deficits; Z87.442 Personal history of urinary calculi; Z87.891 Personal history of nicotine dependence; Z88.0 Allergy status to penicillin; Z90.49 Acquired absence of other specified parts of digestive tract; Z98.1 Arthrodesis status; Z88.6 Allergy status to analgesic agent; Z88.8 Allergy status to other drugs, medicaments and biological substances; Z83.2 Family history of diseases of the blood and blood-forming organs and certain disorders involving the immune mechanism
CPT/HCPCS: 36415; 74019; 74177; 76705; 80048; 80053; 80202; 81001; 82247; 83605; 83690; 84075; 84450; 84460; 85025; 85652; 86140; 87077; 87086; 87186; 87635; 94640; 96361; 96374; 96375; 99285

== ENCOUNTER → 2020-11-18 | Outpatient (CLI) | payer MEDICARE ==
[2020-11-18 14:53] LABS: Basophils # (A) 0.03 X 10*3/uL (0.00-0.10); Basophils % (A) 0.6 %; Eosinophils # (A) 0.45 X 10*3/uL (0.04-0.35); Eosinophils % (A) 9.7 %; HCT 34.2 % (39.6-50.0); Lymphocytes # (A) 1.89 X 10*3/uL (0.90-5.00); Lymphocytes % (A) 40.6 %; MCH 32.6 pg (27.0-32.0); MCHC 32.2 g/dL (32.0-37.0); MCV 101.5 fL (80.0-97.0); Mean Platelet Volume 9.4 fL (9.5-12.2); Monocytes # (A) 0.47 X 10*3/uL (0.20-1.00); Monocytes % (A) 10.1 %; Neutrophils % (A) 36.4 %; Platelet Count 164 X 10*3/uL (140-440); RBC 3.37 X 10*6/uL (4.40-5.60); RDW 14.4 % (11.5-14.5); WBC 4.66 X 10*3/uL (4.50-10.00)
[2020-11-18 16:16] LABS: African American GFR (CKD) 90.5 (60.0-200.0); Albumin/Globulin Ratio 1.18 (1.60-3.17); Anion Gap 7.8 mmol/L (4.00-12.00); C Reactive Protein 1.6 mg/dL (0.0-0.8); Calcium 9.1 mg/dL (8.7-10.3); Carbon Dioxide 25.2 mmol/L (21.6-31.8); Globulin 3.4 g/dL (1.6-3.3); Non-African American GFR(CKD) 78.1 (60.0-200.0); Total Bilirubin 0.7 mg/dL (0.3-1.2); Total Protein 7.4 g/dL (6.2-8.2)
[2020-11-18 18:12] LABS: Gliadin AB IgA, Deaminated NEGATIVE (NEGATIVE); Gliadin AB IgA, Unit 8.4 U/mL; Gliadin AB IgG, Deaminated NEGATIVE (NEGATIVE); Hepatitis A Antibody IgM Non-Reactive (Non-Reactive); Hepatitis B Core IgM Non-Reactive (Non-Reactive); Hepatitis B Surface Antigen Non-Reactive (Non-Reactive); Hepatitis C IgG Antibody Non-Reactive (Non-Reactive)
[2020-11-18 18:41] LABS: Erythrocyte Sedimentation Rate 63 mm/Hr (0-20)
== END | disposition home or self-care (01) ==
LOC: LABWHC1 09:59
PROVIDERS: ATTEND Physician Assistant
DX: K50.80 Crohn's disease of both small and large intestine without complications (principal)
CPT/HCPCS: 36415; 80053; 80074; 83516; 85025; 85652; 86140

== ENCOUNTER 2020-12-01 11:39 | Inpatient (IN) | payer MEDICARE ==
[2020-12-01] MEDS ORDERED: SODIUM CHLORIDE 0.9% 500 ML 500 ML IV STA (12:20)
[2020-12-01] MEDS ORDERED: SODIUM CHLORIDE 0.9% 1,000 ML IV ONE (12:30)
--- NOTE | 2020-12-01 12:30 | ED ---
Abdominal Pain HPI - General Chief Complaint: Abdominal Pain Stated Complaint: crohn's flare up Source: patient Mode of arrival: ambulatory Limitations: no limitations - History of Present Illness Initial Comments: Pt is a 65 year old male with past medical history of diabetes, DVT, Crohn's disease with 5 bowel resections through [facility] who presents emergency Department with reported abdominal pain x 3 days. She admits to multiple histories of similar when he has an exacerbation of his Crohn's disease. Patient reports to a midepigastric abdominal pain with nausea and vomiting. Patient last ate yesterday however has been unable to hold down any food or water. He has been able to down his medications including Keppra. He denies any fevers admits chills. Has not taken any antiemetics at home. He denies any changes in his bladder habits. Admits to some diarrhea. States his pain is consistent with his recurrent episodes, last of which which was in September. He has a surgeon [facility]. Last surgery was in 2014. He follows with Dr. Wade. Finished a of prednisone about 3 weeks ago. Denies any bloody stools or hematemesis. No other alleviating, precipitating or modifying factors - Related Data Home Medications Medication Instructions Recorded Confirmed levETIRAcetam [Keppra] 500 mg PO DAILY 02/22/17 12/01/20 levETIRAcetam [Keppra] 1,000 mg PO HS 03/10/17 12/01/20 Insulin Lispro [humaLOG Kwikpen] 5 unit SQ AC-TID 04/26/17 12/01/20 Nitroglycerin Sl Tabs [Nitrostat] 0.4 mg SL Q5M PRN 04/26/17 12/01/20 Albuterol Sulfate [Albuterol 2 puff INHALATION RT-Q4H PRN 01/21/20 12/01/20 Sulfate Hfa] Insulin Lispro [humaLOG Kwikpen] See Protocol SQ AC-TID 01/21/20 12/01/20 Budesonide/Formoterol Fumarate 2 puff INHALATION RT-BID 05/08/20 12/01/20 [Symbicort 160-4.5 Mcg Inhaler] Pantoprazole Sodium [Protonix] 40 mg PO DAILY 05/08/20 12/01/20 Atorvastatin [Lipitor] 20 mg PO DAILY 12/01/20 12/01/20 Baclofen [Lioresal] 20 mg PO BID 12/01/20 12/01/20 Certolizumab Pegol [Cimzia] 400 mg SQ Q14D 12/01/20 12/01/20 Insulin Glargine,Hum.rec.anlog 20 unit SQ HS 12/01/20 12/01/20 [Lantus Solostar Pen] Naproxen 500 mg PO BID 12/01/20 12/01/20 Nortriptyline HCl [Pamelor] 10 mg PO BID 12/01/20 12/01/20 Allergies Allergy/AdvReac Type Severity Reaction Status Date / Time aspirin Allergy Swelling Verified 12/01/20 15:01 ondansetron HCl [From Zofran] Allergy Unknown Verified 12/01/20 15:01 penicillin G Allergy Rash/Hives Verified 12/01/20 15:01 venom-wasp [Wasp Venom] Allergy Anaphylaxis Verified 12/01/20 15:01 nalbuphine HCl [From Nubain] AdvReac Vomiting Verified 12/01/20 15:01 Review of Systems ROS Statement: Those systems with pertinent positive or pertinent negative responses have been documented in the HPI. ROS Other: All systems not noted in ROS Statement are negative. Past Medical History Past Medical History: Asthma, CVA/TIA, Diabetes Mellitus, Deep Vein Thrombosis (DVT), GERD/Reflux, Osteoarthritis (OA), Skin Disorder Additional Past Medical History / Comment(s): HX OF KIDNEY STONES, CROHNS DISEASE, HX OF BLOOD CLOT RT ARM AND BEHIND RT KNEE, TIA/seizure/brain bleed 08/2016, see Dr Wright H&P, "spots of dry skin", hx anemia, september 2018 stone removed L kidney History of Any Multi-Drug Resistant Organisms: MRSA Date of last positivie culture/infection: 2006 MDRO Source:: nose Past Surgical History: Appendectomy, Back Surgery, Bowel Resection, Cholecystectomy, Heart Catheterization, Prostate Surgery Additional Past Surgical History / Comment(s): BOWEL RESECTION X 5, SPINAL SURGERIES X3, LEFT LOBECTOMY. lithotripsy, TURP, neck fusion. Past Anesthesia/Blood Transfusion Reactions: No Reported Reaction Past Psychological History: No Psychological Hx Reported Smoking Status: Former smoker Past Alcohol Use History: None Reported Past Drug Use History: None Reported - Past Family History Mother Family Medical History: Deep Vein Thrombosis (DVT) General Exam Limitations: no limitations General appearance: alert, in no apparent distress Head exam: Present: atraumatic, normocephalic, normal inspection Eye exam: Present: normal appearance, PERRL, EOMI. Absent: scleral icterus, conjunctival injection, periorbital swelling ENT exam: Present: normal exam, mucous membranes moist Neck exam: Present: normal inspection. Absent: tenderness, meningismus, lymphadenopathy Respiratory exam: Present: normal lung sounds bilaterally. Absent: respiratory distress, wheezes, rales, rhonchi, stridor Cardiovascular Exam: Present: normal rhythm, tachycardia, normal heart sounds. Absent: systolic murmur, diastolic murmur, rubs, gallop, clicks GI/Abdominal exam: Present: soft, tenderness (Epigastric), normal bowel sounds. Absent: distended, guarding, rebound, rigid Extremities exam: Present: normal inspection, full ROM, normal capillary refill. Absent: tenderness, pedal edema, joint swelling, calf tenderness Back exam: Present: normal inspection Neurological exam: Present: alert, oriented X3, CN II-XII intact Psychiatric exam: Present: normal affect, normal mood Skin exam: Present: warm, dry, intact, normal color. Absent: rash Course Vital Signs 12/01/20 12/01/20 12/01/20 12:02 12:49 13:07 Temperature 98.0 F Pulse Rate 111 H 103 H 101 H Respiratory 16 18 18 Rate Blood Pressure 74/49 93/71 115/60 O2 Sat by Pulse 96 95 95 Oximetry 12/01/20 12/01/20 12/01/20 14:00 15:00 16:00 Temperature Pulse Rate 100 101 H 99 Respiratory 18 18 18 Rate Blood Pressure 110/59 113/69 117/76 O2 Sat by Pulse 95 95 95 Oximetry 12/01/20 12/01/20 17:00 18:00 Temperature Pulse Rate 102 H 105 H Respiratory 18 18 Rate Blood Pressure 118/77 117/75 O2 Sat by Pulse 95 95 Oximetry - Reevaluation(s) Reevaluation #1: 12/01/20 15:52 Dr. Ross recommending I speak with Dr. Emerson in regards to patients care Reevaluation #2: Zeynep Castro diverting all transfers at this time 12/01/20 16:44 Medical Decision Making - Medical Decision Making Upon arrival the patient is placed into room 12. A thorough history and physical exam was performed. I did place an ultrasound-guided IV as we did have much difficulty placing a peripheral IV. The patient was given a liter bolus of normal saline, 0.5 mg of Dilaudid and Compazine for nausea. Laboratory studies are conducted. Patient one for a CT of the abdomen pelvis. Laboratory studies are reviewed. Total bilirubin 1.6. Urinalysis demonstrates 42 red blood cells, 10 white blood cells and moderate leukocyte esterase. CT of the patient's abdomen and pelvis demonstrates a bowel obstruction with dilated loops of small bowel leading to cluster of dilated small bowel loops in the right hemiabdomen which measure up to 4.5 cm in diameter. Closed loop obstruction not entirely excluded. I did order an NG tube. This is placed to wall suction. I spoke with Dr. Ross in regards to the patients symptoms. He recommends that I discussed the case with Dr. Trejo as he has previously taken care of the patient. I speak with Dr. Kirby he states that the patient should be transferred to [facility] where he has had his previous surgeries as we do not have GI on consult. I do call and speak with [facility] however they are deferring all transferred at this time as there are critical capacity. I did speak with Dr. Trejo in regards to this. He is agree that the patient could be admitted as Dr. Navarro will be available in the morning. Patient does agree to be admitted here. He is currently awaiting a bed on the floor - Lab Data Result diagrams: 12/01/20 13:04 12/01/20 13:04 Lab Results 12/01/20 12/01/20 12/01/20 Range/Units 13:04 13:04 13:04 WBC 11.7 H (3.8-10.6) k/uL RBC 4.41 (4.30-5.90) m/uL Hgb 15.0 D (13.0-17.5) gm/dL Hct 43.3 (39.0-53.0) % MCV 98.2 D (80.0-100.0) fL MCH 34.1 (25.0-35.0) pg MCHC 34.7 (31.0-37.0) g/dL RDW 16.1 H (11.5-15.5) % Plt Count 154 (150-450) k/uL MPV 8.7 Neutrophils % 60 % Lymphocytes % 24 % Monocytes % 11 % Eosinophils % 1 % Basophils % 1 % Neutrophils # 7.0 (1.3-7.7) k/uL Lymphocytes # 2.8 (1.0-4.8) k/uL Monocytes # 1.3 H (0-1.0) k/uL Eosinophils # 0.2 (0-0.7) k/uL Basophils # 0.1 (0-0.2) k/uL Manual Slide Review Performed Polychromasia Present Poikilocytosis Slight Anisocytosis Slight Macrocytosis Slight PT (9.0-12.0) sec INR (<1.2) APTT (22.0-30.0) sec Sodium 137 (137-145) mmol/L Potassium 5.1 (3.5-5.1) mmol/L Chloride 103 (98-107) mmol/L Carbon Dioxide 21 L (22-30) mmol/L Anion Gap 13 mmol/L BUN 24 H (9-20) mg/dL Creatinine 1.23 (0.66-1.25) mg/dL Est GFR (CKD-EPI)AfAm 71 (>60 ml/min/1.73 sqM) Est GFR (CKD-EPI)NonAf 61 (>60 ml/min/1.73 sqM) Glucose 162 H (74-99) mg/dL Plasma Lactic Acid Jose Miguel 2.0 (0.7-2.0) mmol/L Calcium 10.3 H (8.4-10.2) mg/dL Total Bilirubin 1.6 H (0.2-1.3) mg/dL AST 39 (17-59) U/L ALT 17 (4-49) U/L Alkaline Phosphatase 141 H (38-126) U/L Total Protein 8.5 H (6.3-8.2) g/dL Albumin 4.7 (3.5-5.0) g/dL Lipase 130 (23-300) U/L Urine Color Urine Appearance (Clear) Urine pH (5.0-8.0) Ur Specific Bob White (1.001-1.035) Urine Protein (Negative) Urine Glucose (UA) (Negative) Urine Ketones (Negative) Urine Blood (Negative) Urine Nitrite (Negative) Urine Bilirubin (Negative) Urine Urobilinogen (<2.0) mg/dL Ur Leukocyte Esterase (Negative) Urine RBC (0-5) /hpf Urine WBC (0-5) /hpf Ur Squamous Epith Cells (0-4) /hpf Hyaline Casts (0-2) /lpf Urine Mucus (None) /hpf 12/01/20 12/01/20 Range/Units 13:52 16:10 WBC (3.8-10.6) k/uL RBC (4.30-5.90) m/uL Hgb (13.0-17.5) gm/dL Hct (39.0-53.0) % MCV (80.0-100.0) fL MCH (25.0-35.0) pg MCHC (31.0-37.0) g/dL RDW (11.5-15.5) % Plt Count (150-450) k/uL MPV Neutrophils % % Lymphocytes % % Monocytes % % Eosinophils % % Basophils % % Neutrophils # (1.3-7.7) k/uL Lymphocytes # (1.0-4.8) k/uL Monocytes # (0-1.0) k/uL Eosinophils # (0-0.7) k/uL Basophils # (0-0.2) k/uL Manual Slide Review Polychromasia Poikilocytosis Anisocytosis Macrocytosis PT 11.4 (9.0-12.0) sec INR 1.1 (<1.2) APTT 24.3 (22.0-30.0) sec Sodium (137-145) mmol/L Potassium (3.5-5.1) mmol/L Chloride (98-107) mmol/L Carbon Dioxide (22-30) mmol/L Anion Gap mmol/L BUN (9-20) mg/dL Creatinine (0.66-1.25) mg/dL Est GFR (CKD-EPI)AfAm (>60 ml/min/1.73 sqM) Est GFR (CKD-EPI)NonAf (>60 ml/min/1.73 sqM) Glucose (74-99) mg/dL Plasma Lactic Acid Jose Miguel (0.7-2.0) mmol/L Calcium (8.4-10.2) mg/dL Total Bilirubin (0.2-1.3) mg/dL AST (17-59) U/L ALT (4-49) U/L Alkaline Phosphatase (38-126) U/L Total Protein (6.3-8.2) g/dL Albumin (3.5-5.0) g/dL Lipase (23-300) U/L Urine Color Yellow Urine Appearance Clear (Clear) Urine pH 5.5 (5.0-8.0) Ur Specific Bob White >1.050 H (1.001-1.035) Urine Protein 1+ H (Negative) Urine Glucose (UA) Negative (Negative) Urine Ketones Trace H (Negative) Urine Blood Moderate H (Negative) Urine Nitrite Negative (Negative) Urine Bilirubin Negative (Negative) Urine Urobilinogen <2.0 (<2.0) mg/dL Ur Leukocyte Esterase Moderate H (Negative) Urine RBC 42 H (0-5) /hpf Urine WBC 10 H (0-5) /hpf Ur Squamous Epith Cells 2 (0-4) /hpf Hyaline Casts 1 (0-2) /lpf Urine Mucus Rare H (None) /hpf - EKG Data EKG Comments: EKG demonstrates a sinus tachycardia with a ventricular rate of 102. RI interval 166. QRS 86. QTC of 440. No acute ST segment elevations or depressions. J-point elevation in the inferior leads Disposition Clinical Impression: Small bowel obstruction, Exacerbation of Crohn's disease, Diarrhea, Abdominal pain Disposition: ADMITTED IP TO THIS HOSP Condition: Stable Is patient prescribed a controlled substance at d/c from ED?: No Decision to Admit Reason: Admit from EC Decision Date: 12/01/20 Decision Time: 17:09
[2020-12-01] MEDS ORDERED: PROCHLORPERAZINE INJ 10 MG/2 ML VIAL IVP STA (12:32)
[2020-12-01] MEDS ORDERED: HYDROmorphone 0.5 MG/0.5 ML SYRINGE IVP STA (12:33)
[2020-12-01 13:23] LABS: Albumin 4.7 g/dL (3.5-5.0); Calcium 10.3 mg/dL (8.4-10.2); Total Bilirubin 1.6 mg/dL (0.2-1.3); Total Protein 8.5 g/dL (6.3-8.2)
[2020-12-01 13:32] LABS: Anisocytosis Slight; Basophils # (A) 0.1 k/uL (0-0.2); Basophils % (A) 1 %; Eosinophils # (A) 0.2 k/uL (0-0.7); Eosinophils % (A) 1 %; HCT 43.3 % (39.0-53.0); Lymphocytes # (A) 2.8 k/uL (1.0-4.8); Lymphocytes % (A) 24 %; MCH 34.1 pg (25.0-35.0); MCHC 34.7 g/dL (31.0-37.0); Macrocytosis Slight; Mean Platelet Volume 8.7; Monocytes # (A) 1.3 k/uL (0-1.0); Monocytes % (A) 11 %; Neutrophils % (A) 60 %; Platelet Count 154 k/uL (150-450); Poikilocytosis Slight; RBC 4.41 m/uL (4.30-5.90); RDW 16.1 % (11.5-15.5); WBC 11.7 k/uL (3.8-10.6)
[2020-12-01 13:33] LABS: Potassium 5.1 mmol/L (3.5-5.1)
[2020-12-01 13:36] LABS: MCV 98.2 fL (80.0-100.0)
[2020-12-01 13:47] LABS: Polychromasia Present
[2020-12-01 14:29] LABS: INR 1.1 (<1.2); Partial Thromboplastin Time 24.3 sec (22.0-30.0); Prothrombin Time 11.4 sec (9.0-12.0)
--- NOTE | 2020-12-01 14:49 | CT ---
EXAMINATION TYPE: CT abdomen pelvis w con DATE OF EXAM: 12/01/2020 COMPARISON: CT abdomen/pelvis most recently dated 09/21/2020 HISTORY: abd pain, crohns disease, hx bowel obstruction CT DLP: 1108 mGycm Automated exposure control for dose reduction was used. TECHNIQUE: Helical acquisition of images was performed from the lung bases through the pelvis. Gener al and coronal reformatted images were obtained. CONTRAST: Performed without Oral Contrast and with IV Contrast, patient injected with 100 mL of Isovue 300. FINDINGS: Progressed focal nodule within the right lung base with adjacent groundglass opacity measuring up to 30 mm. Liver, spleen pancreas and bilateral adrenal glands appear unremarkable. Bladder is surgically absent . Similar-appearing mildly dilated intrahepatic and extrahepatic biliary ducts and main pancreatic du ct. Kidneys are symmetric in size without hydronephrosis. Unchanged right renal calculus in the inferior pole measuring 15 mm. Urinary bladder appears unremarkable. Prostate is mildly enlarged. Right and transverse colectomy changes. Moderately dilated loops of small bowel with transition point in the right hemiabdomen where there is a cluster of dilated small bowel loops similar to prior on , current small bowel dilatation 4.5 cm. Distal small bowel and colon appears underdistended. Mild mesenteric inflammation in the right hemiabdomen around the distended small bowel loops. No jeanie e air. Moderate atherosclerotic calcifications of the abdominal aorta and common iliac arteries without aneu rysm. No intra-abdominal or retroperitoneal lymphadenopathy. Small umbilical hernia containing small bowel loops which appears unrelated to the bowel obstruction. Postsurgical changes of the lumbosacral junction and mild multilevel degenerative changes of the visu alized thoracolumbar spine. IMPRESSION: 1. Similar appearing small bowel obstruction to 09/21/2020 with dilated loops of small bowel leading t o a cluster of dilated small bowel loops in the right hemiabdomen, which measure up to 4.5 cm in diam eter. Closed loop obstruction is not entirely excluded and recommend appropriate clinical laboratory correlation. 2. Mildly progressed focal nodule and groundglass in the right lung base which is nonspecific and may represent infectious inflammatory etiologies such as aspiration if patient is vomiting. Short-term follow-up to ensure resolution.
[2020-12-01] MEDS ORDERED: HYDROmorphone 1 MG/ML 1 ML SYRINGE IVP STA (15:38)
[2020-12-01 16:40] LABS: Appearance,Urine Clear (Clear); Bilirubin,Urine Negative (Negative); Blood,Urine Moderate (Negative); Color,Urine Yellow; Glucose,Urine (UA) Negative (Negative); Hyaline Casts,Urine 1 /lpf (0-2); Ketones,Urine Trace (Negative); Leukocyte Esterase,Urine Moderate (Negative); Mucus,Urine Rare /hpf; Nitrite,Urine Negative (Negative); PH, Urine 5.5 (5.0-8.0); Protein,Urine 1+ (Negative); RBC,Urine 42 /hpf (0-5); Squamous Epithelial Cell,Urine 2 /hpf (0-4); Urobilinogen,Urine <2.0 mg/dL (<2.0); WBC,Urine 10 /hpf (0-5)
[2020-12-01 17:05] LABS: Specific Gravity,Urine >1.050 (1.001-1.035)
[2020-12-01] MEDS ORDERED: NALOXONE 0.4 MG/ML 1 ML VIAL IV PRN (17:11)
[2020-12-01] MEDS ORDERED: PROCHLORPERAZINE INJ 10 MG/2 ML VIAL IVP PRN (17:13)
--- NOTE | 2020-12-01 18:46 | XR ---
EXAMINATION TYPE: XR abdomen 1V DATE OF EXAM: 12/01/2020 COMPARISON: CT abdomen/pelvis same day HISTORY: Crohn's disease, small bowel obstruction, enteric tube placement. TECHNIQUE: Single frontal upright view of the upper abdomen FINDINGS: Enteric tube appears subdiaphragmatic with tip and sidehole overlying the stomach lumen. No pneumoperitoneum. Lung bases demonstrate bibasilar atelectasis. No pleural effusion. Surgical clips overlie the right upper abdomen. IMPRESSION: Satisfactory placement of enteric tube.
[2020-12-01] MEDS: HYDROmorphone 1 MG/ML 1 ML SYRINGE IVP PRN (19:54)
[2020-12-01] MEDS ORDERED: levETIRAcetam IV 1,000 MG in SALINE 1 100ML.BAG IVPB STA (20:18)
[2020-12-01] MEDS: NORTRIPTYLINE 10 MG CAP PO SCH (20:21)
[2020-12-01] MEDS: levETIRAcetam 500 MG TAB PO SCH (20:21)
[2020-12-01] MEDS ORDERED: NON FORMULARY DRUG (Baclofen [Lioresal] 20 MG Tablet) PO SCH (21:00)
[2020-12-01] MEDS: BACLOFEN 10 MG TAB PO SCH (21:18)
[2020-12-02] MEDS: HYDROmorphone 1 MG/ML 1 ML SYRINGE IVP PRN ×4 (02:10→20:38)
[2020-12-02 07:56] LABS: Glucose,Whole Blood 152 mg/dL (75-99)
[2020-12-02] MEDS: ALBUTEROL NEBULIZED 2.5 MG/3 ML INHALATION PRN ×2 (08:08→12:05)
[2020-12-02] MEDS: ATORVASTATIN 20 MG TAB PO SCH (08:52)
[2020-12-02] MEDS: PANTOPRAZOLE 40 MG TABLET PO SCH (08:52)
[2020-12-02] MEDS: NORTRIPTYLINE 10 MG CAP PO SCH ×2 (08:52→21:20)
[2020-12-02] MEDS: levETIRAcetam 500 MG TAB PO SCH ×2 (08:52→20:38)
[2020-12-02] MEDS: BACLOFEN 10 MG TAB PO SCH ×2 (08:52→20:38)
[2020-12-02 11:28] LABS: Glucose,Whole Blood 206 mg/dL (75-99)
--- NOTE | 2020-12-02 11:48 | P.GSCN ---
<Jessica Bland - Last Filed: 12/02/20 11:38> History of Present Illness Consult date: 12/02/20 History of present illness: CHIEF COMPLAINT: Abdominal pain HISTORY OF PRESENT ILLNESS: This is a 65-year-old male with a known history of Crohn's disease with prior bowel obstructions requiring bowel resection. Patient states that he's had about 5 bowel resections through [facility]. Patient presented to the emergency department with complaints of abdominal pain on the right side of the abdomen for about 3 days. He reports this is similar to his previous Crohn's exacerbations. He did have nausea and vomiting. He's been unable to keep his medications down. He did have a small amount of diarrhea. Patient follows with Dr. Wade for his Crohn's and had finished prednisone about 3 weeks ago. Patient denies any blood in his stools. Patient had a computed tomography scan of the abdomen and pelvis showing similar appearing small bowel obstruction to 09/21/2020 with dilated loops of small bowel leading to a cluster of dilated small bowel loops in the right hemiabdomen which measured up to 4.5 cm. Closed loop obstruction is not entirely excluded. Patient has NG tube in place. Patient had improvement in abdominal pain and after NG tube placed. Initially it was recommended that patient be transferred to [facility] where he's had his previous surgeries. However, [facility] is deferring transfers at this time due to them being a critical capacity. Patient also is having some mild tachycardia. PAST MEDICAL HISTORY: See list. PAST SURGICAL HISTORY: See list. MEDICATIONS: See list. ALLERGIES: See list. SOCIAL HISTORY: No illicit drug use. REVIEW OF SYSTEMS: CONSTITUTIONAL: Denies fever or chills. HEENT: Denies blurred vision, vision changes, or eye pain. Denies hemoptysis CARDIOVASCULAR: Denies chest pain or pressure. RESPIRATORY: No shortness of breath. GASTROINTESTINAL: See HPI for pertinent findings HEMATOLOGIC: Denies bleeding disorders. GENITOURINARY: Denies any blood in urine or increased urinary frequency. SKIN: Denies pruitis. Denies rash. PHYSICAL EXAM: VITAL SIGNS: Reviewed GENERAL: Well-developed in no acute distress. HEENT: No sclera icterus. Extraocular movements grossly intact. Moist buccal mucosa. Head is atraumatic, normocephalic. No nasal drainage. ABDOMEN: Soft. Nondistended. Tenderness with palpation of the right side of the abdomen NEUROLOGIC: Alert and oriented. Cranial nerves II through XII grossly intact. LABORATORY DATA: WBC 11.7 hemoglobin 15 platelets 154 INR 1.1 creatinine 1.23 Total bilirubin 1.6 AST ALT normal alk phos 141 lipase 130 IMAGING: CT findings as stated above ASSESSMENT: 1. Small bowel obstruction likely secondary to Crohn's 2. Crohn's exacerbation 3. 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 Signing provider agrees with the documented findings, assessment, and plan of care. Past Medical History Past Medical History: Asthma, CVA/TIA, Diabetes Mellitus, Deep Vein Thrombosis (DVT), GERD/Reflux, Osteoarthritis (OA), Skin Disorder Additional Past Medical History / Comment(s): HX OF KIDNEY STONES, CROHNS DISEASE, HX OF BLOOD CLOT RT ARM AND BEHIND RT KNEE, TIA/seizure/brain bleed 08/2016, see Dr Wright H&P, "spots of dry skin", hx anemia, september 2018 stone removed L kidney History of Any Multi-Drug Resistant Organisms: MRSA Year Discovered:: 2006 MDRO Source:: nose Past Surgical History: Appendectomy, Back Surgery, Bowel Resection, Cholecystectomy, Heart Catheterization, Prostate Surgery Additional Past Surgical History / Comment(s): BOWEL RESECTION X 5, SPINAL SURGERIES X3, LEFT LOBECTOMY. lithotripsy, TURP, neck fusion. Past Anesthesia/Blood Transfusion Reactions: No Reported Reaction Past Psychological History: No Psychological Hx Reported Smoking Status: Former smoker Past Alcohol Use History: None Reported Past Drug Use History: None Reported - Past Family History Mother Family Medical History: Deep Vein Thrombosis (DVT) Medications and Allergies Home Medications Medication Instructions Recorded Confirmed Type levETIRAcetam [Keppra] 500 mg PO DAILY 02/22/17 12/01/20 History levETIRAcetam [Keppra] 1,000 mg PO HS 03/10/17 12/01/20 History Insulin Lispro [humaLOG Kwikpen] 5 unit SQ AC-TID 04/26/17 12/01/20 History Nitroglycerin Sl Tabs [Nitrostat] 0.4 mg SL Q5M PRN 04/26/17 12/01/20 History Albuterol Sulfate [Albuterol 2 puff INHALATION RT-Q4H PRN 01/21/20 12/01/20 History Sulfate Hfa] Insulin Lispro [humaLOG Kwikpen] See Protocol SQ AC-TID 01/21/20 12/01/20 History Budesonide/Formoterol Fumarate 2 puff INHALATION RT-BID 05/08/20 12/01/20 History [Symbicort 160-4.5 Mcg Inhaler] Pantoprazole Sodium [Protonix] 40 mg PO DAILY 05/08/20 12/01/20 History Atorvastatin [Lipitor] 20 mg PO DAILY 12/01/20 12/01/20 History Baclofen [Lioresal] 20 mg PO BID 12/01/20 12/01/20 History Certolizumab Pegol [Cimzia] 400 mg SQ Q14D 12/01/20 12/01/20 History Insulin Glargine,Hum.rec.anlog 20 unit SQ HS 12/01/20 12/01/20 History [Lantus Solostar Pen] Naproxen 500 mg PO BID 12/01/20 12/01/20 History Nortriptyline HCl [Pamelor] 10 mg PO BID 12/01/20 12/01/20 History Allergies Allergy/AdvReac Type Severity Reaction Status Date / Time aspirin Allergy Swelling Verified 12/01/20 15:01 ondansetron HCl [From Zofran] Allergy Unknown Verified 12/01/20 15:01 penicillin G Allergy Rash/Hives Verified 12/01/20 15:01 venom-wasp [Wasp Venom] Allergy Anaphylaxis Verified 12/01/20 15:01 nalbuphine HCl [From Nubain] AdvReac Vomiting Verified 12/01/20 15:01 Surgical - Exam Vital Signs Temp Pulse Resp BP Pulse Ox 98.0 F 111 H 16 74/49 96 12/01/20 12:02 12/01/20 12:02 12/01/20 12:02 12/01/20 12:02 12/01/20 12:02 Results - Labs 12/01/20 13:04 12/01/20 13:04 Abnormal Lab Results - Last 24 Hours (Table) 12/01/20 12/01/20 12/01/20 Range/Units 13:04 13:04 16:10 WBC 11.7 H (3.8-10.6) k/uL RDW 16.1 H (11.5-15.5) % Monocytes # 1.3 H (0-1.0) k/uL Carbon Dioxide 21 L (22-30) mmol/L BUN 24 H (9-20) mg/dL Glucose 162 H (74-99) mg/dL POC Glucose (mg/dL) (75-99) mg/dL Calcium 10.3 H (8.4-10.2) mg/dL Total Bilirubin 1.6 H (0.2-1.3) mg/dL Alkaline Phosphatase 141 H (38-126) U/L Total Protein 8.5 H (6.3-8.2) g/dL Ur Specific [place] >1.050 H (1.001-1.035) Urine Protein 1+ H (Negative) Urine Ketones Trace H (Negative) Urine Blood Moderate H (Negative) Ur Leukocyte Esterase Moderate H (Negative) Urine RBC 42 H (0-5) /hpf Urine WBC 10 H (0-5) /hpf Urine Mucus Rare H (None) /hpf 12/02/20 12/02/20 Range/Units 07:55 11:27 WBC (3.8-10.6) k/uL RDW (11.5-15.5) % Monocytes # (0-1.0) k/uL Carbon Dioxide (22-30) mmol/L BUN (9-20) mg/dL Glucose (74-99) mg/dL POC Glucose (mg/dL) 152 H 206 H (75-99) mg/dL Calcium (8.4-10.2) mg/dL Total Bilirubin (0.2-1.3) mg/dL Alkaline Phosphatase (38-126) U/L Total Protein (6.3-8.2) g/dL Ur Specific [place] (1.001-1.035) Urine Protein (Negative) Urine Ketones (Negative) Urine Blood (Negative) Ur Leukocyte Esterase (Negative) Urine RBC (0-5) /hpf Urine WBC (0-5) /hpf Urine Mucus (None) /hpf Diabetes panel 12/01/20 Range/Units 13:04 Sodium 137 (137-145) mmol/L Potassium 5.1 (3.5-5.1) mmol/L Chloride 103 (98-107) mmol/L Carbon Dioxide 21 L (22-30) mmol/L BUN 24 H (9-20) mg/dL Creatinine 1.23 (0.66-1.25) mg/dL Glucose 162 H (74-99) mg/dL Calcium 10.3 H (8.4-10.2) mg/dL AST 39 (17-59) U/L ALT 17 (4-49) U/L Alkaline Phosphatase 141 H (38-126) U/L Total Protein 8.5 H (6.3-8.2) g/dL Albumin 4.7 (3.5-5.0) g/dL Calcium panel 12/01/20 Range/Units 13:04 Calcium 10.3 H (8.4-10.2) mg/dL Albumin 4.7 (3.5-5.0) g/dL Pituitary panel 12/01/20 Range/Units 13:04 Sodium 137 (137-145) mmol/L Potassium 5.1 (3.5-5.1) mmol/L Chloride 103 (98-107) mmol/L Carbon Dioxide 21 L (22-30) mmol/L BUN 24 H (9-20) mg/dL Creatinine 1.23 (0.66-1.25) mg/dL Glucose 162 H (74-99) mg/dL Calcium 10.3 H (8.4-10.2) mg/dL Adrenal panel 12/01/20 Range/Units 13:04 Sodium 137 (137-145) mmol/L Potassium 5.1 (3.5-5.1) mmol/L Chloride 103 (98-107) mmol/L Carbon Dioxide 21 L (22-30) mmol/L BUN 24 H (9-20) mg/dL Creatinine 1.23 (0.66-1.25) mg/dL Glucose 162 H (74-99) mg/dL Calcium 10.3 H (8.4-10.2) mg/dL Total Bilirubin 1.6 H (0.2-1.3) mg/dL AST 39 (17-59) U/L ALT 17 (4-49) U/L Alkaline Phosphatase 141 H (38-126) U/L Total Protein 8.5 H (6.3-8.2) g/dL Albumin 4.7 (3.5-5.0) g/dL <Edgar Emesron - Last Filed: 12/02/20 11:55> History of Present Illness History of present illness: As above. Patient returns with recurrent complaints of abdominal pain nausea and vomiting. CAT scan reviewed and compared to the CAT scan was performed in September. Patient again has evidence of small bowel obstruction involving a matting of bowel loops in the right midabdomen. Patient states he has had multiple surgeries at [facility] with resections numerous times. Looking at the CAT scan patient has approximately diminished length of small bowel as a result of these previous surgeries. He did respond to conservative therapy last visit. Would try to avoid surgery if at all possible given the concern that he may develop short bowel syndrome with any further surgical intervention. Agree with plans for GI consult. We'll follow with you. Surgical - Exam Vital Signs Temp Pulse Resp BP Pulse Ox 98.0 F 111 H 16 74/49 96 12/01/20 12:02 12/01/20 12:02 12/01/20 12:02 12/01/20 12:02 12/01/20 12:02 Results - Labs 12/01/20 13:04 12/01/20 13:04 Abnormal Lab Results - Last 24 Hours (Table) 12/01/20 12/01/20 12/01/20 Range/Units 13:04 13:04 16:10 WBC 11.7 H (3.8-10.6) k/uL RDW 16.1 H (11.5-15.5) % Monocytes # 1.3 H (0-1.0) k/uL Carbon Dioxide 21 L (22-30) mmol/L BUN 24 H (9-20) mg/dL Glucose 162 H (74-99) mg/dL POC Glucose (mg/dL) (75-99) mg/dL Calcium 10.3 H (8.4-10.2) mg/dL Total Bilirubin 1.6 H (0.2-1.3) mg/dL Alkaline Phosphatase 141 H (38-126) U/L Total Protein 8.5 H (6.3-8.2) g/dL Ur Specific [place] >1.050 H (1.001-1.035) Urine Protein 1+ H (Negative) Urine Ketones Trace H (Negative) Urine Blood Moderate H (Negative) Ur Leukocyte Esterase Moderate H (Negative) Urine RBC 42 H (0-5) /hpf Urine WBC 10 H (0-5) /hpf Urine Mucus Rare H (None) /hpf 12/02/20 12/02/20 Range/Units 07:55 11:27 WBC (3.8-10.6) k/uL RDW (11.5-15.5) % Monocytes # (0-1.0) k/uL Carbon Dioxide (22-30) mmol/L BUN (9-20) mg/dL Glucose (74-99) mg/dL POC Glucose (mg/dL) 152 H 206 H (75-99) mg/dL Calcium (8.4-10.2) mg/dL Total Bilirubin (0.2-1.3) mg/dL Alkaline Phosphatase (38-126) U/L Total Protein (6.3-8.2) g/dL Ur Specific [place] (1.001-1.035) Urine Protein (Negative) Urine Ketones (Negative) Urine Blood (Negative) Ur Leukocyte Esterase (Negative) Urine RBC (0-5) /hpf Urine WBC (0-5) /hpf Urine Mucus (None) /hpf Diabetes panel 12/01/20 Range/Units 13:04 Sodium 137 (137-145) mmol/L Potassium 5.1 (3.5-5.1) mmol/L Chloride 103 (98-107) mmol/L Carbon Dioxide 21 L (22-30) mmol/L BUN 24 H (9-20) mg/dL Creatinine 1.23 (0.66-1.25) mg/dL Glucose 162 H (74-99) mg/dL Calcium 10.3 H (8.4-10.2) mg/dL AST 39 (17-59) U/L ALT 17 (4-49) U/L Alkaline Phosphatase 141 H (38-126) U/L Total Protein 8.5 H (6.3-8.2) g/dL Albumin 4.7 (3.5-5.0) g/dL Calcium panel 12/01/20 Range/Units 13:04 Calcium 10.3 H (8.4-10.2) mg/dL Albumin 4.7 (3.5-5.0) g/dL Pituitary panel 12/01/20 Range/Units 13:04 Sodium 137 (137-145) mmol/L Potassium 5.1 (3.5-5.1) mmol/L Chloride 103 (98-107) mmol/L Carbon Dioxide 21 L (22-30) mmol/L BUN 24 H (9-20) mg/dL Creatinine 1.23 (0.66-1.25) mg/dL Glucose 162 H (74-99) mg/dL Calcium 10.3 H (8.4-10.2) mg/dL Adrenal panel 12/01/20 Range/Units 13:04 Sodium 137 (137-145) mmol/L Potassium 5.1 (3.5-5.1) mmol/L Chloride 103 (98-107) mmol/L Carbon Dioxide 21 L (22-30) mmol/L BUN 24 H (9-20) mg/dL Creatinine 1.23 (0.66-1.25) mg/dL Glucose 162 H (74-99) mg/dL Calcium 10.3 H (8.4-10.2) mg/dL Total Bilirubin 1.6 H (0.2-1.3) mg/dL AST 39 (17-59) U/L ALT 17 (4-49) U/L Alkaline Phosphatase 141 H (38-126) U/L Total Protein 8.5 H (6.3-8.2) g/dL Albumin 4.7 (3.5-5.0) g/dL
[2020-12-02] MEDS: SYMBICORT 160-4.5 MCG INHALER INHALATION SCH ×2 (12:04→19:26)
[2020-12-02 12:08] LABS: African American GFR (CKD) 39.1 (60.0-200.0); Calcium 9.7 mg/dL (8.7-10.3); Carbon Dioxide 16.8 mmol/L (21.6-31.8); Chloride 103 mmol/L (96-109); Glucose 170 mg/dL (70-110); Non-African American GFR(CKD) 33.8 (60.0-200.0); Potassium 4.4 mmol/L (3.5-5.5); Sodium 139 mmol/L (135-145)
[2020-12-02 12:38] LABS: Basophils # (A) 0.06 X 10*3/uL (0.00-0.10); Basophils % (A) 0.6 %; Eosinophils # (A) 0.07 X 10*3/uL (0.04-0.35); Eosinophils % (A) 0.7 %; HCT 42.6 % (39.6-50.0); HGB 13.8 g/dL (13.0-17.0); Lymphocytes % (A) 46.3 %; MCH 32.5 pg (27.0-32.0); MCHC 32.4 g/dL (32.0-37.0); MCV 100.2 fL (80.0-97.0); Mean Platelet Volume 9.7 fL (9.5-12.2); Monocytes # (A) 1.09 X 10*3/uL (0.20-1.00); Monocytes % (A) 11.2 %; Neutrophils # (A) 3.88 X 10*3/uL (1.80-7.70); Neutrophils % (A) 40.1 %; Platelet Count 174 X 10*3/uL (140-440); RBC 4.25 X 10*6/uL (4.40-5.60); RDW 15.1 % (11.5-14.5); WBC 9.71 X 10*3/uL (4.50-10.00)
--- NOTE | 2020-12-02 15:31 | P.CONS ---
History of Present Illness - Reason for Consult Consult date: 12/02/20 Crohn's disease Requesting physician: Jessica Bland - Chief Complaint Abdominal pain - History of Present Illness The patient is a 65-year-old white male who presented to the emergency department with complaints of abdominal pain with seated with nausea and vomiting. The patient has a past medical history significant for Crohn's disease affecting the small and large bowel requiring prior surgical resection, asthma, CVA, diabetes mellitus, deep vein thrombosis, GERD, osteoarthritis, and skin disorder. He was recently started on Cymzia in October of this year his last treatment 11/15/2020. He normally has 4 bowel movements a day, his last bowel movement was Wednesday. Patient reports having for exacerbations and bowel obstructions within the last year. He states he was also previously on Remicade, Humira, Entyvio and Entocort. Prior to his Cymzia he was in between Biologics due to insurance coverage, and was on steroids. He has a history of 5 previous bowel surgeries done at [facility], last one in January 2015. He had a colonoscopy in June 2019 showed moderate ileitis with multiple superficial ulcerations noted in the ileum and at the ileocolonic anastomosis with biopsies of ileum taking, otherwise normal-appearing colon. He's had a EGD a few years ago, history of cholecystectomy in 2014 for cholelithiasis, and a prior ERCP approximately 2015 for biliary obstruction. Currently has an NG tube in with bilous put, denies any nausea or vomiting today, is on clear liquid diet but only taking popsicles and ice chips. Abdominal pain slightly improved, no bowel movement today. WBC 9.7, hemoglobin 13.8, hematocrit 42, platelet count 174,000, total bilirubin 1.6, alkaline phosphatase 141, AST 39, ALT 17. Patient had a CT of the abdomen and pelvis that shows similar appearing small bowel obstruction to 09/21/2020 with dilated loops of small bowel leading to a cluster of dilated small bowel loops in the right hemiabdomen, which measures up to 4.5 cm in diameter. Closed-loop obstruction is not entirely excluded and recommend appropriate clinical laboratory correlation. Mildly progressive focal nodule and groundglass in the right lung which is nonspecific and may represent infectious inflammatory etiologies such as aspiration patient is vomiting. Short-term follow-up to ensure resolution. Review of Systems REVIEW OF SYSTEMS: CARDIOPULMONARY: No chest pain or shortness of breath. Gastrointestinal: Abdominal pain, greatest in the upper abdomen. Nausea and vomiting, now improved.. No hematemesis, coffee-ground emesis. No rectal bleeding, or melena. Normal bowel movements are loose, for a day. GENITOURINARY: No dysuria or hematuria. MUSCULOSKELETAL: Reports normal range of motion., Joint pain. SKIN: No rashes. No jaundice. ENDOCRINE: No chills, fevers. No excessive weight gain or loss. No polydipsia or polyuria. PSYCHIATRIC: Unremarkable. NEUROLOGY: No change in mental status. Denies dizziness, headache. ENT: Vision unremarkable. CONSTITUTIONAL: No recent weight loss. No fever, chills, night sweats. Past Medical History Past Medical History: Asthma, CVA/TIA, Diabetes Mellitus, Deep Vein Thrombosis (DVT), GERD/Reflux, Osteoarthritis (OA), Skin Disorder Additional Past Medical History / Comment(s): HX OF KIDNEY STONES, CROHNS DISEASE, HX OF BLOOD CLOT RT ARM AND BEHIND RT KNEE, TIA/seizure/brain bleed 08/2016, see Dr Wright H&P, "spots of dry skin", hx anemia, september 2018 stone removed L kidney History of Any Multi-Drug Resistant Organisms: MRSA Year Discovered:: 2006 MDRO Source:: nose Past Surgical History: Appendectomy, Back Surgery, Bowel Resection, Cholecystec je, Heart Catheterization, Prostate Surgery Additional Past Surgical History / Comment(s): BOWEL RESECTION X 5, SPINAL SURGERIES X3, LEFT LOBECTOMY. lithotripsy, TURP, neck fusion. Past Anesthesia/Blood Transfusion Reactions: No Reported Reaction Past Psychological History: No Psychological Hx Reported Smoking Status: Former smoker Past Alcohol Use History: None Reported Past Drug Use History: None Reported - Past Family History Mother Family Medical History: Deep Vein Thrombosis (DVT) Medications and Allergies Home Medications Medication Instructions Recorded Confirmed Type levETIRAcetam [Keppra] 500 mg PO DAILY 02/22/17 12/01/20 History levETIRAcetam [Keppra] 1,000 mg PO HS 03/10/17 12/01/20 History Insulin Lispro [humaLOG Kwikpen] 5 unit SQ AC-TID 04/26/17 12/01/20 History Nitroglycerin Sl Tabs [Nitrostat] 0.4 mg SL Q5M PRN 04/26/17 12/01/20 History Albuterol Sulfate [Albuterol 2 puff INHALATION RT-Q4H PRN 01/21/20 12/01/20 History Sulfate Hfa] Insulin Lispro [humaLOG Kwikpen] See Protocol SQ AC-TID 01/21/20 12/01/20 History Budesonide/Formoterol Fumarate 2 puff INHALATION RT-BID 05/08/20 12/01/20 Histor y [Symbicort 160-4.5 Mcg Inhaler] Pantoprazole Sodium [Protonix] 40 mg PO DAILY 05/08/20 12/01/20 History Atorvastatin [Lipitor] 20 mg PO DAILY 12/01/20 12/01/20 History Baclofen [Lioresal] 20 mg PO BID 12/01/20 12/01/20 History Certolizumab Pegol [Cimzia] 400 mg SQ Q14D 12/01/20 12/01/20 History Insulin Glargine,Hum.rec.anlog 20 unit SQ HS 12/01/20 12/01/20 History [Lantus Solostar Pen] Naproxen 500 mg PO BID 12/01/20 12/01/20 History Nortriptyline HCl [Pamelor] 10 mg PO BID 12/01/20 12/01/20 History Allergies Allergy/AdvReac Type Severity Reaction Status Date / Time aspirin Allergy Swelling Verified 12/01/20 15:01 ondansetron HCl [From Zofran] Allergy Unknown Verified 12/01/20 15:01 penicillin G Allergy Rash/Hives Verified 12/01/20 15:01 venom-wasp [Wasp Venom] Allergy Anaphylaxis Verified 12/01/20 15:01 nalbuphine HCl [From Nubain] AdvReac Vomiting Verified 12/01/20 15:01 Physical Exam Vitals: Vital Signs Temp Pulse Pulse Resp BP BP Pulse Ox 12/02/20 08:24 117 H 12/02/20 08:14 107 H 12/02/20 07:53 98.8 F 75 16 103/65 90 L 12/02/20 02:11 87 16 97/56 98 12/01/20 18:00 105 H 18 117/75 95 12/01/20 17:00 102 H 18 118/77 95 12/01/20 16:00 99 18 117/76 95 12/01/20 15:00 101 H 18 113/69 95 12/01/20 14:00 100 18 110/59 95 12/01/20 13:07 101 H 18 115/60 95 12/01/20 12:49 103 H 18 93/71 95 12/01/20 12:02 98.0 F 111 H 16 74/49 96 General appearance: The patient is alert, oriented, appears in no acute distress. HET: Head is normocephalic and atraumatic. Conjunctiva pink. Sclera anicteric. Neck: Supple without lymphadenopathy. Trachea midline. Heart: S1 S2. Regular rate and rhythm. Lungs: Clear to auscultation. Abdomen: Soft, abdominal tenderness, greatest in upper abdomen, nondistended with bowel sounds. No guarding or rigidity. Skin: No rashes. No jaundice. Extremities: Normal skin color and turgor. No pedal edema. Neurological: No focal deficits. Alert and oriented 3.. Results CBC & Chem 7: 12/02/20 05:17 12/02/20 05:17 Labs: Abnormal Lab Results - Last 24 Hours (Table) 12/01/20 12/01/20 12/01/20 Range/Units 13:04 13:04 16:10 WBC 11.7 H (3.8-10.6) k/uL RDW 16.1 H (11.5-15.5) % Monocytes # 1.3 H (0-1.0) k/uL Carbon Dioxide 21 L (22-30) mmol/L BUN 24 H (9-20) mg/dL Glucose 162 H (74-99) mg/dL POC Glucose (mg/dL) (75-99) mg/dL Calcium 10.3 H (8.4-10.2) mg/dL Total Bilirubin 1.6 H (0.2-1.3) mg/dL Alkaline Phosphatase 141 H (38-126) U/L Total Protein 8.5 H (6.3-8.2) g/dL Ur Specific [place] >1.050 H (1.001-1.035) Urine Protein 1+ H (Negative) Urine Ketones Trace H (Negative) Urine Blood Moderate H (Negative) Ur Leukocyte Esterase Moderate H (Negative) Urine RBC 42 H (0-5) /hpf Urine WBC 10 H (0-5) /hpf Urine Mucus Rare H (None) /hpf 12/02/20 Range/Units 07:55 WBC (3.8-10.6) k/uL RDW (11.5-15.5) % Monocytes # (0-1.0) k/uL Carbon Dioxide (22-30) mmol/L BUN (9-20) mg/dL Glucose (74-99) mg/dL POC Glucose (mg/dL) 152 H (75-99) mg/dL Calcium (8.4-10.2) mg/dL Total Bilirubin (0.2-1.3) mg/dL Alkaline Phosphatase (38-126) U/L Total Protein (6.3-8.2) g/dL Ur Specific [place] (1.001-1.035) Urine Protein (Negative) Urine Ketones (Negative) Urine Blood (Negative) Ur Leukocyte Esterase (Negative) Urine RBC (0-5) /hpf Urine WBC (0-5) /hpf Urine Mucus (None) /hpf CT scan - abdomen: report reviewed (CT of the abdomen and pelvis that shows similar appearing small bowel obstruction to 09/21/2020 with dilated loops of small bowel leading to a cluster of dilated small bowel loops in the right hemiabdomen, which measures up to 4.5 cm in diameter. Closed-loop obstruction is not entirely excluded and) Assessment and Plan (1) Crohn's disease Narrative/Plan: 65-year-old male with a long-standing history of Crohn's disease who has undergone 5 previous bowel surgeries done at [facility] last one in January 2015. Patient was recently started onCymzia in October of this year, last dose November 15. Patient presented to the emergency department with complaints of abdominal pain associated with nausea and vomiting, which he describes similar to his previous small bowel obstructions. Patient also reports no bowel movement since Wednesday, normal for him would be to 4 loose bowel movements today. He states no coffee-ground or hematemesis. He states he has had some improvement in his bowel movement since starting the Cymzia he he went from 8 to 4 bowel movements daily. He was recently admitted in September of this year for Crohn's exacerbation and at that time his CT of the abdomen and pelvis is similar to findings from today showing small bowel obstruction similar to that of 09/21/2020 with dilated loops of small bowel leading to a cluster of dilated small bowel loops in the right hemiabdomen, which measures up to 4.5 cm in diameter. Close loop obstruction is not entirely excluded and recommend appropriate clinical laboratory correlation. NG tube is currently in place. Sed rate and CRP ordered, will start patient on high-dose steroids. Gen. surgery is on consult for small bowel obstruction. Current Visit: No Status: Acute Code(s): K50.90 - CROHN'S DISEASE, UNSPECIFIED, WITHOUT COMPLICATIONS SNOMED Code(s): 18596333 (2) Abdominal pain Current Visit: Yes Status: Acute Code(s): R10.9 - UNSPECIFIED ABDOMINAL PAIN SNOMED Code(s): 00451466 (3) Small bowel obstruction Current Visit: Yes Status: Acute Code(s): K56.609 - UNSP INTESTNL OBST, UNSP TO PARTIAL VERSUS COMPLETE OBST SNOMED Code(s): 533800651 Plan: 1. Continue symptomatic and supportive care 2. Pain medications as needed 3. Antiemetics as needed 4. Continue NG tube 5. Continue with ice chips and popsicles 6. CRP and sed rate ordered 7. Repeat CMP 8. Begin Solu-Medrol 20 mg IV every 8 hours 9. Gen. surgery on consult, following patient closely Thank you for this consultation, we will continue to follow closely. Dr. Radha Wade I agree with the dictator's note, documented as a scribe by Colleen Urrutia.
[2020-12-02] MEDS: methylPREDNISolone SOD SUCCI 40 MG/ML 1 ML VIAL IV SCH (16:25)
[2020-12-02] MEDS: SODIUM CHLORIDE 0.9% 1,000 ML IV SCH (16:26)
[2020-12-02 16:48] LABS: Glucose,Whole Blood 197 mg/dL (75-99)
[2020-12-02] MEDS: INSULIN ASPART (NovoLOG) 100 UNIT/ML VIAL SQ SCH ×2 (17:04→20:38)
[2020-12-02 20:01] LABS: Glucose,Whole Blood 190 mg/dL (75-99)
[2020-12-02] MEDS: HEPARIN SODIUM,PORCINE/PF 5,000 UNIT/0.5 ML SYRINGE SQ SCH (20:39)
--- NOTE | 2020-12-02 23:03 | P.HPIM ---
History of Present Illness H&P Date: 12/02/20 Chief Complaint: Nausea, vomiting and abdominal pain Mr. Hickey is a 65-year-old male with a past medical history of CVA/TIA, asthma, diabetes mellitus, DVT, GERD, osteoarthritis, nephrolithiasis, Crohn's disease, right arm DVT, coming in the hospital with a chief complaint of abdominal pain for the past 2 to 3 days. Patient has Crohn's disease with 5 bowel resections done at [facility] in the past. He also has multiple histories of similar admissions in the past for exacerbation of Crohn's disease. Patient complains of pain in his epigastric abdominal area associated with nausea and vomiting, that he is not able to keep his solids or fluids down. Patient denied having any fevers chills or rigors. He denied having any diarrhea. Patient denied having any chest pain or palpitations. No cough or difficulty in breathing. No dysuria or hematuria. He denied having any headaches, blurring of vision or neck pain. In the ED patient's vitals at the time of admission temperature 98, heart rate 110, respiratory 16, blood pressure 74/49 saturating at 96% on room air. Patient had a CAT scan of the abdomen and pelvis showing small bowel obstruction appearance similar to 09/21/2020 with dilated loops of small bowel leading to cluster of dilated small bowel loops in the right hemiabdomen measuring up to 4.5 cm in diameter. There is mild progressive focal nodule and groundglass appearance in the right lung base could be aspiration if patient is vomiting. On reviewing his labs white count of 9.7, hemoglobin 13.8 and platelets 174. Sodium 139, potassium 4.4, chloride 103, bicarb 6 team, BUN 37, creatinine 2. Review of Systems REVIEW OF SYSTEMS: CONSTITUTIONAL: No fever, no malaise, no fatigue. HEENT: No headache, no neck stiffness, no blurring of vision CARDIOVASCULAR: No chest pain, no palpitations PULMONARY: No cough or difficulty in breathing GASTROINTESTINAL: As per HPI NEUROLOGICAL: No weakness of extremities HEMATOLOGICAL: Denies any bleeding or petechiae. GENITOURINARY: Denies any burning micturition, frequency, or urgency. MUSCULOSKELETAL/RHEUMATOLOGICAL: Denies any joint pain, swelling, or any muscle pain. ENDOCRINE: Denies polyuria polydipsia or heat or cold intolerance The rest of the 14-point review of systems is negative. Past Medical History Past Medical History: Asthma, CVA/TIA, Diabetes Mellitus, Deep Vein Thrombosis (DVT), GERD/Reflux, Osteoarthritis (OA), Skin Disorder Additional Past Medical History / Comment(s): HX OF KIDNEY STONES, CROHNS DISEASE, HX OF BLOOD CLOT RT ARM AND BEHIND RT KNEE, TIA/seizure/brain bleed 08/2016, see Dr Wright H&P, "spots of dry skin", hx anemia, september 2018 stone removed L kidney History of Any Multi-Drug Resistant Organisms: MRSA Date of last positivie culture/infection: 2006 MDRO Source:: nose Past Surgical History: Appendectomy, Back Surgery, Bowel Resection, Cholecystectomy, Heart Catheterization, Prostate Surgery Additional Past Surgical History / Comment(s): BOWEL RESECTION X 5, SPINAL SURGERIES X3, LEFT LOBECTOMY. lithotripsy, TURP, neck fusion. Past Anesthesia/Blood Transfusion Reactions: No Reported Reaction Past Psychological History: No Psychological Hx Reported Smoking Status: Former smoker Past Alcohol Use History: None Reported Past Drug Use History: None Reported - Past Family History Mother Family Medical History: Deep Vein Thrombosis (DVT) Medications and Allergies Home Medications Medication Instructions Recorded Confirmed Type levETIRAcetam [Keppra] 500 mg PO DAILY 02/22/17 12/01/20 History levETIRAcetam [Keppra] 1,000 mg PO HS 03/10/17 12/01/20 History Insulin Lispro [humaLOG Kwikpen] 5 unit SQ AC-TID 04/26/17 12/01/20 History Nitroglycerin Sl Tabs [Nitrostat] 0.4 mg SL Q5M PRN 04/26/17 12/01/20 History Albuterol Sulfate [Albuterol 2 puff INHALATION RT-Q4H PRN 01/21/20 12/01/20 History Sulfate Hfa] Insulin Lispro [humaLOG Kwikpen] See Protocol SQ AC-TID 01/21/20 12/01/20 History Budesonide/Formoterol Fumarate 2 puff INHALATION RT-BID 05/08/20 12/01/20 History [Symbicort 160-4.5 Mcg Inhaler] Pantoprazole Sodium [Protonix] 40 mg PO DAILY 05/08/20 12/01/20 History Atorvastatin [Lipitor] 20 mg PO DAILY 12/01/20 12/01/20 History Baclofen [Lioresal] 20 mg PO BID 12/01/20 12/01/20 History Certolizumab Pegol [Cimzia] 400 mg SQ Q14D 12/01/20 12/01/20 History Insulin Glargine,Hum.rec.anlog 20 unit SQ HS 12/01/20 12/01/20 History [Lantus Solostar Pen] Naproxen 500 mg PO BID 12/01/20 12/01/20 History Nortriptyline HCl [Pamelor] 10 mg PO BID 12/01/20 12/01/20 History Allergies Allergy/AdvReac Type Severity Reaction Status Date / Time aspirin Allergy Swelling Verified 12/01/20 15:01 ondansetron HCl [From Zofran] Allergy Unknown Verified 12/01/20 15:01 penicillin G Allergy Rash/Hives Verified 12/01/20 15:01 venom-wasp [Wasp Venom] Allergy Anaphylaxis Verified 12/01/20 15:01 nalbuphine HCl [From Nubain] AdvReac Vomiting Verified 12/01/20 15:01 Physical Exam Vitals: Vital Signs Temp Pulse Pulse Resp BP BP BP 12/02/20 13:54 98.8 F 84 18 107/71 12/02/20 12:18 125 H 12/02/20 12:07 107 H 12/02/20 08:24 117 H 12/02/20 08:14 107 H 12/02/20 07:53 98.8 F 75 16 103/65 12/02/20 02:11 87 16 97/56 12/01/20 18:00 105 H 18 117/75 12/01/20 17:00 102 H 18 118/77 Pulse Ox 12/02/20 13:54 90 L 12/02/20 12:18 12/02/20 12:07 12/02/20 08:24 12/02/20 08:14 12/02/20 07:53 90 L 12/02/20 02:11 98 12/01/20 18:00 95 12/01/20 17:00 95 Intake and Output 12/02/20 12/02/20 12/02/20 06:59 14:59 22:59 Other: Weight 88.451 kg PHYSICAL EXAMINATION: GENERAL: Comfortably lying up in the bed appears to be no acute distress. HEENT: Pupils are round and equally reacting to light. EOMI. No scleral icterus. No conjunctival pallor. NG tube in place for suction. CARDIOVASCULAR: S1 and S2 present. No murmurs, rubs, or gallops. PULMONARY: Bilateral breath sounds positive. No wheeze or crackles.. ABDOMEN: Diatended, Hypoactive bowel sounds MUSCULOSKELETAL: No joint swelling or deformity. EXTREMITIES: No edema NEUROLOGICAL: Gross neurological examination did not reveal any focal deficits. SKIN:No rash Results CBC & Chem 7: 12/02/20 05:17 12/02/20 05:17 Labs: Abnormal Lab Results - Last 24 Hours (Table) 12/01/20 12/02/20 12/02/20 Range/Units 16:10 05:17 05:17 RBC 4.25 L (4.40-5.60) X 10*6/uL MCV 100.2 H (80.0-97.0) fL MCH 32.5 H (27.0-32.0) pg RDW 15.1 H (11.5-14.5) % Absolute Nucleated RBC 0.03 H (0.00-0.00) X 10*3/uL Immature Gran # 0.11 H (0.00-0.04) X 10*3/uL Monocytes # 1.09 H (0.20-1.00) X 10*3/uL NRBC/100 WBC Diff 0.3 H (0.0-0.0) /100 WBCS Carbon Dioxide 16.8 L (21.6-31.8) mmol/L Anion Gap 19.20 H (4.00-12.00) mmol/L BUN 37.0 H (9.0-27.0) mg/dL Creatinine 2.0 H (0.6-1.5) mg/dL Est GFR (CKD-EPI)AfAm 39.1 L (60.0-200.0) Est GFR (CKD-EPI)NonAf 33.8 L (60.0-200.0) Glucose 170 H (70-110) mg/dL POC Glucose (mg/dL) (75-99) mg/dL Ur Specific [place] >1.050 H (1.001-1.035) Urine Protein 1+ H (Negative) Urine Ketones Trace H (Negative) Urine Blood Moderate H (Negative) Ur Leukocyte Esterase Moderate H (Negative) Urine RBC 42 H (0-5) /hpf Urine WBC 10 H (0-5) /hpf Urine Mucus Rare H (None) /hpf 12/02/20 12/02/20 Range/Units 07:55 11:27 RBC (4.40-5.60) X 10*6/uL MCV (80.0-97.0) fL MCH (27.0-32.0) pg RDW (11.5-14.5) % Absolute Nucleated RBC (0.00-0.00) X 10*3/uL Immature Gran # (0.00-0.04) X 10*3/uL Monocytes # (0.20-1.00) X 10*3/uL NRBC/100 WBC Diff (0.0-0.0) /100 WBCS Carbon Dioxide (21.6-31.8) mmol/L Anion Gap (4.00-12.00) mmol/L BUN (9.0-27.0) mg/dL Creatinine (0.6-1.5) mg/dL Est GFR (CKD-EPI)AfAm (60.0-200.0) Est GFR (CKD-EPI)NonAf (60.0-200.0) Glucose (70-110) mg/dL POC Glucose (mg/dL) 152 H 206 H (75-99) mg/dL Ur Specific [place] (1.001-1.035) Urine Protein (Negative) Urine Ketones (Negative) Urine Blood (Negative) Ur Leukocyte Esterase (Negative) Urine RBC (0-5) /hpf Urine WBC (0-5) /hpf Urine Mucus (None) /hpf Thrombosis Risk Factor Assmnt - Choose All That Apply Any of the Below Risk Factors Present?: Yes Other Risk Factors: Yes Each Risk Factor Represents 2 Points: Age 61-74 years Each Risk Factor Represents 3 Points: History of DVT/PE Other congenital or acquired thrombophilia - If yes, enter type in comment: No Thrombosis Risk Factor Assessment Total Risk Factor Score: 5 Thrombosis Risk Factor Assessment Level: High Risk Assessment and Plan Assessment: ASSESSMENT Small bowel obstruction secondary to Crohn's disease Acute Crohn's exacerbation Acute kidney injury due to vomiting History of 5 bowel resections Asthma CVA/TIA Diabetes mellitus History of provoked right arm DVT Multiple joint osteoarthritis GERD History of nephrolithiasis History of prostate surgery History of cholecystectomy Former smoker PLAN : Patient is kept n.p.o. Continue with supportive management, IV fluids NG tube to suction. Patient has been started on high-dose steroids, in view of his Crohn's history. GI and general surgery on board. Continue with Keppra of as the patient has history of seizure disorder. Protonix and heparin for GI and DVT prophylaxis respectively. Continue with the rest of his current medication regimen. Further recommendations to follow depending on the progress of the patient.
[2020-12-03] MEDS: methylPREDNISolone SOD SUCCI 40 MG/ML 1 ML VIAL IV SCH ×3 (00:13→16:35)
[2020-12-03] MEDS: HYDROmorphone 1 MG/ML 1 ML SYRINGE IVP PRN ×4 (05:08→20:28)
[2020-12-03 06:25] LABS: Basophils % (A) 0 %; Eosinophils % (A) 0 %; HGB 13.1 gm/dL (13.0-17.5); Hypochromasia Slight; Lymphocytes # (A) 1.6 k/uL (1.0-4.8); Lymphocytes % (A) 17 %; MCH 33.5 pg (25.0-35.0); MCHC 32.8 g/dL (31.0-37.0); MCV 102.1 fL (80.0-100.0); Macrocytosis Slight; Mean Platelet Volume 8.3; Monocytes # (A) 0.2 k/uL (0-1.0); Monocytes % (A) 2 %; Neutrophils # (A) 7.6 k/uL (1.3-7.7); Neutrophils % (A) 80 %; Platelet Count 198 k/uL (150-450); Poikilocytosis Slight; RBC 3.92 m/uL (4.30-5.90); RDW 15.8 % (11.5-15.5); WBC 9.5 k/uL (3.8-10.6)
[2020-12-03] MEDS: SODIUM CHLORIDE 0.9% 1,000 ML IV SCH ×2 (06:42→14:53)
[2020-12-03 07:18] LABS: Glucose,Whole Blood 253 mg/dL (75-99)
[2020-12-03] MEDS: SYMBICORT 160-4.5 MCG INHALER INHALATION SCH ×2 (08:05→20:17)
[2020-12-03] MEDS: ALBUTEROL NEBULIZED 2.5 MG/3 ML INHALATION PRN (08:05)
[2020-12-03] MEDS: levETIRAcetam 500 MG TAB PO SCH ×2 (08:38→20:28)
[2020-12-03] MEDS: ATORVASTATIN 20 MG TAB PO SCH (08:38)
[2020-12-03] MEDS: PANTOPRAZOLE 40 MG TABLET PO SCH (08:38)
[2020-12-03] MEDS: NORTRIPTYLINE 10 MG CAP PO SCH ×2 (08:38→20:27)
[2020-12-03] MEDS: BACLOFEN 10 MG TAB PO SCH ×2 (08:38→20:27)
[2020-12-03] MEDS: INSULIN ASPART (NovoLOG) 100 UNIT/ML VIAL SQ SCH ×4 (08:40→20:27)
[2020-12-03] MEDS: HEPARIN SODIUM,PORCINE/PF 5,000 UNIT/0.5 ML SYRINGE SQ SCH ×2 (08:40→20:27)
[2020-12-03 10:31] LABS: African American GFR (CKD) 28.5 (60.0-200.0); Anion Gap 17.6 mmol/L (4.00-12.00); BUN/Creat Ratio 24.23 Ratio (12.00-20.00); Calcium 8.5 mg/dL (8.7-10.3); Carbon Dioxide 17.4 mmol/L (21.6-31.8); Non-African American GFR(CKD) 24.6 (60.0-200.0); Potassium 4.8 mmol/L (3.5-5.5)
--- NOTE | 2020-12-03 10:57 | P.PN ---
<Jessica Bland - Last Filed: 12/03/20 10:51> Subjective Progress Note Date: 12/03/20 CHIEF COMPLAINT: Abdominal pain HISTORY OF PRESENT ILLNESS: Patient followed for small bowel obstruction. Patient reports that his pain is the same as yesterday. He is still having sharp pain on the right side of the abdomen. He was started on IV steroids the by GI service for his Crohn's exacerbation. He has NG tube in place with dark greenish output. He denies any bowel movement or flatus. He is afebrile. Denies any nausea or vomiting. WBC is 9.5 hemoglobin 13.1 platelets 198 PHYSICAL EXAM: VITAL SIGNS: Reviewed. GENERAL: Well-developed in no acute distress. HEENT: No sclera icterus. Extraocular movements grossly intact. Moist buccal mucosa. Head is atraumatic, normocephalic. ABDOMEN: Soft. Distended tenderness with palpation of the right side abdomen NEUROLOGIC: Alert and oriented. Cranial nerves II through XII grossly intact. ASSESSMENT: 1. Small bowel obstruction likely secondary to Crohn's 2. Crohn's exacerbation 3. History of multiple bowel resections due to bowel obstructions from his [employer] hn's PLAN: -Continue NG tube for decompression -Continue conservative management. Would try to avoid surgery if at all possible given the concern that patient may develop short bowel syndrome with any further surgical intervention -Keep patient nothing by mouth except for ice chips, popsicles medications -Continue treatment for Crohn's exacerbation per GI service -Continue IV fluids -Continue pain medication as needed Physician Mirror Installer note has been reviewed by physician. Signing provider agrees with the documented findings, assessment, and plan of care. Objective - Vital Signs Vital signs: Vital Signs Temp 97.6 F 12/03/20 04:17 Pulse 86 12/03/20 04:17 Resp 16 12/03/20 04:17 BP 115/77 12/03/20 04:17 Pulse Ox 98 12/03/20 04:17 Intake & Output 12/02/20 12/03/20 12/03/20 18:59 06:59 18:59 Output Total 1413 200 Balance -1413 -200 Weight 88.451 kg Output: Gastric Drainage 1300 200 Post Void Residual 113 Other: Voiding Method Toilet # Voids 2 - Labs CBC & Chem 7: 12/03/20 05:26 12/03/20 05:26 Labs: Abnormal Lab Results - Last 24 Hours (Table) 12/02/20 12/02/20 12/02/20 Range/Units 05:17 05:17 11:27 RBC 4.25 L (4.40-5.60) X 10*6/uL MCV 100.2 H (80.0-97.0) fL MCH 32.5 H (27.0-32.0) pg RDW 15.1 H (11.5-14.5) % Absolute Nucleated RBC 0.03 H (0.00-0.00) X 10*3/uL Immature Gran # 0.11 H (0.00-0.04) X 10*3/uL Monocytes # 1.09 H (0.20-1.00) X 10*3/uL NRBC/100 WBC Diff 0.3 H (0.0-0.0) /100 WBCS Carbon Dioxide 16.8 L (21.6-31.8) mmol/L Anion Gap 19.20 H (4.00-12.00) mmol/L BUN 37.0 H (9.0-27.0) mg/dL Creatinine 2.0 H (0.6-1.5) mg/dL Est GFR (CKD-EPI)AfAm 39.1 L (60.0-200.0) Est GFR (CKD-EPI)NonAf 33.8 L (60.0-200.0) BUN/Creatinine Ratio (12.00-20.00) Ratio Glucose 170 H (70-110) mg/dL POC Glucose (mg/dL) 206 H (75-99) mg/dL Calcium (8.7-10.3) mg/dL 12/02/20 12/02/20 12/03/20 Range/Units 16:46 20:00 05:26 RBC 3.92 L (4.40-5.60) X 10*6/uL MCV 102.1 H (80.0-97.0) fL MCH (27.0-32.0) pg RDW 15.8 H (11.5-14.5) % Absolute Nucleated RBC (0.00-0.00) X 10*3/uL Immature Gran # (0.00-0.04) X 10*3/uL Monocytes # (0.20-1.00) X 10*3/uL NRBC/100 WBC Diff (0.0-0.0) /100 WBCS Carbon Dioxide (21.6-31.8) mmol/L Anion Gap (4.00-12.00) mmol/L BUN (9.0-27.0) mg/dL Creatinine (0.6-1.5) mg/dL Est GFR (CKD-EPI)AfAm (60.0-200.0) Est GFR (CKD-EPI)NonAf (60.0-200.0) BUN/Creatinine Ratio (12.00-20.00) Ratio Glucose (70-110) mg/dL POC Glucose (mg/dL) 197 H 190 H (75-99) mg/dL Calcium (8.7-10.3) mg/dL 12/03/20 12/03/20 Range/Units 05:26 07:04 RBC (4.40-5.60) X 10*6/uL MCV (80.0-97.0) fL MCH (27.0-32.0) pg RDW (11.5-14.5) % Absolute Nucleated RBC (0.00-0.00) X 10*3/uL Immature Gran # (0.00-0.04) X 10*3/uL Monocytes # (0.20-1.00) X 10*3/uL NRBC/100 WBC Diff (0.0-0.0) /100 WBCS Carbon Dioxide 17.4 L (21.6-31.8) mmol/L Anion Gap 17.60 H (4.00-12.00) mmol/L BUN 63.0 H (9.0-27.0) mg/dL Creatinine 2.6 H (0.6-1.5) mg/dL Est GFR (CKD-EPI)AfAm 28.5 L (60.0-200.0) Est GFR (CKD-EPI)NonAf 24.6 L (60.0-200.0) BUN/Creatinine Ratio 24.23 H (12.00-20.00) Ratio Glucose 233 H (70-110) mg/dL POC Glucose (mg/dL) 253 H (75-99) mg/dL Calcium 8.5 L (8.7-10.3) mg/dL <Edgar Emerson - Last Filed: 12/03/20 16:06> Subjective As above. Patient says his pain is improved. Still with moderate nasogastric tube output. Labs noted. He is afebrile. Tachycardia improved. No flatus or bowel movement thus far. Continue conservative approach with IV steroids. If no improvement may require laparotomy. Objective - Vital Signs Vital signs: Vital Signs Temp 97.6 F 12/03/20 12:39 Pulse 89 12/03/20 12:39 Resp 17 12/03/20 12:39 BP 107/70 12/03/20 12:39 Pulse Ox 95 12/03/20 12:39 Intake & Output 12/02/20 12/03/20 12/03/20 18:59 06:59 18:59 Output Total 1413 200 Balance -1413 -200 Weight 88.451 kg Output: Gastric Drainage 1300 200 Post Void Residual 113 Other: Voiding Method Toilet Toilet # Voids 2 - Labs CBC & Chem 7: 12/03/20 05:26 12/03/20 05:26 Labs: Abnormal Lab Results - Last 24 Hours (Table) 12/02/20 12/02/20 12/03/20 Range/Units 16:46 20:00 05:26 RBC 3.92 L (4.30-5.90) m/uL MCV 102.1 H (80.0-100.0) fL RDW 15.8 H (11.5-15.5) % Carbon Dioxide (21.6-31.8) mmol/L Anion Gap (4.00-12.00) mmol/L BUN (9.0-27.0) mg/dL Creatinine (0.6-1.5) mg/dL Est GFR (CKD-EPI)AfAm (60.0-200.0) Est GFR (CKD-EPI)NonAf (60.0-200.0) BUN/Creatinine Ratio (12.00-20.00) Ratio Glucose (70-110) mg/dL POC Glucose (mg/dL) 197 H 190 H (75-99) mg/dL Calcium (8.7-10.3) mg/dL 12/03/20 12/03/20 12/03/20 Range/Units 05:26 07:04 11:50 RBC (4.30-5.90) m/uL MCV (80.0-100.0) fL RDW (11.5-15.5) % Carbon Dioxide 17.4 L (21.6-31.8) mmol/L Anion Gap 17.60 H (4.00-12.00) mmol/L BUN 63.0 H (9.0-27.0) mg/dL Creatinine 2.6 H (0.6-1.5) mg/dL Est GFR (CKD-EPI)AfAm 28.5 L (60.0-200.0) Est GFR (CKD-EPI)NonAf 24.6 L (60.0-200.0) BUN/Creatinine Ratio 24.23 H (12.00-20.00) Ratio Glucose 233 H (70-110) mg/dL POC Glucose (mg/dL) 253 H 229 H (75-99) mg/dL Calcium 8.5 L (8.7-10.3) mg/dL
[2020-12-03 12:01] LABS: Glucose,Whole Blood 229 mg/dL (75-99)
[2020-12-03] MEDS: IPRATROPIUM-ALBUTEROL 3 ML NEB INHALATION SCH ×2 (12:49→20:17)
--- NOTE | 2020-12-03 15:10 | P.PN ---
Subjective Progress Note Date: 12/03/20 Principal diagnosis: Crohn's disease 65-year-old male who presented to the emergency department 2 days ago with complaints of abdominal pain associated with nausea and vomiting. Patient has significant history of Crohn's disease affecting the small large bowel requiring prior surgical resection. He was recently started on Cymzia in October of this year as treatment 11/15/2020 with some improvement in amount of bowel movements. Patient states abdominal pain has improved slightly, he is not having any nausea or vomiting. NG tube is in place. He is tolerating popsicles and ice chips. No bowel movement, did pass some gas this afternoon. Gen. surgery is following patient. He remains on IV Solu-Medrol. Objective - Vital Signs Vital signs: Vital Signs Temp 97.6 F 12/03/20 12:39 Pulse 89 12/03/20 12:39 Resp 17 12/03/20 12:39 BP 107/70 12/03/20 12:39 Pulse Ox 95 12/03/20 12:39 Intake & Output 12/02/20 12/03/20 12/03/20 18:59 06:59 18:59 Output Total 1413 200 Balance -1413 -200 Weight 88.451 kg Output: Gastric Drainage 1300 200 Post Void Residual 113 Other: Voiding Method Toilet # Voids 2 - Exam General appearance: The patient is alert, oriented, appears in no acute distr ess. HET: Head is normocephalic and atraumatic. Conjunctiva pink. Sclera anicteric. Neck: Supple without lymphadenopathy. Abdomen: Soft, mild tenderness, incisional scar mid abdomen, nondistended with bowel sounds. No guarding or rigidity. Extremities: Normal skin color and turgor. No pedal edema Skin: No rashes, no jaundice Neurological: No focal deficits. Alert and oriented 3. - Labs CBC & Chem 7: 12/03/20 05:26 12/03/20 05:26 Labs: Abnormal Lab Results - Last 24 Hours (Table) 12/02/20 12/02/20 12/03/20 Range/Units 16:46 20:00 05:26 RBC 3.92 L (4.30-5.90) m/uL MCV 102.1 H (80.0-100.0) fL RDW 15.8 H (11.5-15.5) % Carbon Dioxide (21.6-31.8) mmol/L Anion Gap (4.00-12.00) mmol/L BUN (9.0-27.0) mg/dL Creatinine (0.6-1.5) mg/dL Est GFR (CKD-EPI)AfAm (60.0-200.0) Est GFR (CKD-EPI)NonAf (60.0-200.0) BUN/Creatinine Ratio (12.00-20.00) Ratio Glucose (70-110) mg/dL POC Glucose (mg/dL) 197 H 190 H (75-99) mg/dL Calcium (8.7-10.3) mg/dL 12/03/20 12/03/20 12/03/20 Range/Units 05:26 07:04 11:50 RBC (4.30-5.90) m/uL MCV (80.0-100.0) fL RDW (11.5-15.5) % Carbon Dioxide 17.4 L (21.6-31.8) mmol/L Anion Gap 17.60 H (4.00-12.00) mmol/L BUN 63.0 H (9.0-27.0) mg/dL Creatinine 2.6 H (0.6-1.5) mg/dL Est GFR (CKD-EPI)AfAm 28.5 L (60.0-200.0) Est GFR (CKD-EPI)NonAf 24.6 L (60.0-200.0) BUN/Creatinine Ratio 24.23 H (12.00-20.00) Ratio Glucose 233 H (70-110) mg/dL POC Glucose (mg/dL) 253 H 229 H (75-99) mg/dL Calcium 8.5 L (8.7-10.3) mg/dL Assessment and Plan (1) Crohn's disease Narrative/Plan: 65-year-old male with a long-standing history of Crohn's disease who has undergone 5 previous bowel surgeries done at [facility] last one in January 2015. Patient was recently started onCymzia in October of this year, last dose November 15. Patient presented to the emergency department with complaints of abdominal pain associated with nausea and vomiting, which he describes similar to his previous small bowel obstructions. Patient also reports no bowel movement since Wednesday, normal for him would be to 4 loose bowel movements today. He states no coffee-ground or hematemesis. He states he has had some improvement in his bowel movement since starting the Cymzia he he went from 8 to 4 bowel movements daily. He was recently admitted in September of this year for Crohn's exacerbation and at that time his CT of the abdomen and pelvis is similar to findings from today showing small bowel obstruction similar to that of 09/21/2020 with dilated loops of small bowel leading to a cluster of dilated small bowel loops in the right hemiabdomen, which measures up to 4.5 cm in diameter. Close loop obstruction is not entirely excluded and recommend ap propriate clinical laboratory correlation. NG tube is currently in place. Sed rate and CRP ordered, will start patient on high-dose steroids. Gen. surgery is on consult for small bowel obstruction. Patient symptoms improving, continue IV Solu-Medrol 20 mg every 8 hours Current Visit: No Status: Acute Code(s): K50.90 - CROHN'S DISEASE, UNSPECIFIED, WITHOUT COMPLICATIONS SNOMED Code(s): 52033650 (2) Abdominal pain Current Visit: Yes Status: Acute Code(s): R10.9 - UNSPECIFIED ABDOMINAL PAIN SNOMED Code(s): 46628568 (3) Small bowel obstruction Current Visit: Yes Status: Acute Code(s): K56.609 - UNSP INTESTNL OBST, UNSP TO PARTIAL VERSUS COMPLETE OBST SNOMED Code(s): 537960396 Plan: 1. Continue symptomatic and supportive care 2. Pain medications as needed 3. Antiemetics as needed 4. Continue NG tube per recommendations from surgery 5. Continue with ice chips and popsicles 6. CRP and sed rate ordered, pending 7. Repeat CMP 8. Continue Solu-Medrol 20 mg IV every 8 hours 9. Gen. surgery on consult, following patient closely Thank you for this consultation, we will continue to follow closely. Dr. Radha Wade I agree with the dictator's note, documented as a scribe by Colleen Urrutia.
--- NOTE | 2020-12-03 15:44 | P.PN ---
Subjective Progress Note Date: 12/03/20 Mr. Hickey is a 65-year-old male with a past medical history of CVA/TIA, asthma, diabetes mellitus, DVT, GERD, osteoarthritis, nephrolithiasis, Crohn's disease, right arm DVT, coming in the hospital with a chief complaint of abdominal pain for the past 2 to 3 days. Patient has Crohn's disease with 5 bowel resections done at [facility] in the past. He also has multiple histories of similar admissions in the past for exacerbation of Crohn's disease. Patient complains of pain in his epigastric abdominal area associated with nausea and vomiting, that he is not able to keep his solids or fluids down. Patient denied having any fevers chills or rigors. He denied having any diarrhea. Patient denied having any chest pain or palpitations. No cough or difficulty in breathing. No dysuria or hematuria. He denied having any headaches, blurring of vision or neck pain. In the ED patient's vitals at the time of admission temperature 98, heart rate 110, respiratory 16, blood pressure 74/49 saturating at 96% on room air. Patient had a CAT scan of the abdomen and pelvis showing small bowel obstruction appearance similar to 09/21/2020 with dilated loops of small bowel leading to cluster of dilated small bowel loops in the right hemiabdomen measuring up to 4.5 cm in diameter. There is mild progressive focal nodule and groundglass appearance in the right lung base could be aspiration if patient is vomiting. On reviewing his labs white count of 9.7, hemoglobin 13.8 and platelets 174. Sodium 139, potassium 4.4, chloride 103, bicarb 6 team, BUN 37, creatinine 2. 12/03/2020 Patient is seen in follow-up this morning and is being closely monitored by surgery along with GI and patient is maintained on nothing by mouth diet except for ice chips and popsicles and has continued NG tube placed. Patient denies any passing of gas or bowel movements but did have positive bowel sounds this morning. Patient is also continued on normal saline along with home medications. Patient continues on sliding scale as well as he is on IV steroids and will continue to monitor Accu-Cheks before meals and at bedtime. Patient denies any nausea or vomiting. Abdomen is mildly distended but soft with no guarding or rigidity noted. White blood count is 9.5, hemoglobin is 13.1, sodium is 139 with a potassium of 4.8 current BUN is 63 and creatinine is 2.6. Review of systems: Constitutional: No reports of fatigue, fever, or chills Cardiovascular: No reports of chest pain or palpitations Respiratory: No reports of shortness of breath or cough GI: No reports of nausea, vomiting, or diarrhea, reports gurgling heard in his stomach with no reports of passing gas or bowel movement : No reports of dysuria or retention Neurovascular: No reports of weakness or numbness All medications have been reviewed Active Medications Albuterol Sulfate (Albuterol Nebulized 2.5 Mg/3 Ml) 2.5 mg INHALATION RT-Q4H PRN PRN Reason: Shortness Of Breath Last Admin: 12/03/20 08:05 Dose: 2.5 mg Documented by: Albuterol/Ipratropium (Ipratropium-Albuterol 3 Ml Neb) 3 ml INHALATION RT-TID [facility] Last Admin: 12/03/20 12:49 Dose: 3 ml Documented by: Atorvastatin Calcium (Atorvastatin 20 Mg Tab) 20 mg PO DAILY [facility] Last Admin: 12/03/20 08:38 Dose: 20 mg Documented by: Baclofen (Baclofen 10 Mg Tab) 20 mg PO BID [facility] Last Admin: 12/03/20 08:38 Dose: 20 mg Documented by: Budesonide/Formoterol Fumarate (Symbicort 160-4.5 Mcg Inhaler) 2 puff INHALATION RT-BID [facility] Last Admin: 12/03/20 08:05 Dose: 2 puff Documented by: Heparin Sodium (Porcine) (Heparin Sodium,Porcine/Pf 5,000 Unit/0.5 Ml Syringe) 5,000 unit SQ Q12HR [facility] Last Admin: 12/03/20 08:40 Dose: 5,000 unit Documented by: Hydromorphone HCl (Hydromorphone 1 Mg/Ml 1 Ml Syringe) 1 mg IVP Q3HR PRN PRN Reason: Severe Pain Last Admin: 12/03/20 14:49 Dose: 1 mg Documented by: Sodium Chloride (Saline 0.9%) 1,000 mls @ 75 mls/hr IV .[id number] [facility] Last Admin: 12/03/20 14:53 Dose: Not Given Documented by: Insulin Aspart (Insulin Aspart (Novolog) 100 Unit/Ml Vial) 0 unit SQ ACHS [facility]; Protocol Last Admin: 12/03/20 12:26 Dose: 7 unit Documented by: Levetiracetam (Levetiracetam 500 Mg Tab) 1,000 mg PO HS [facility] Last Admin: 12/02/20 20:38 Dose: 1,000 mg Documented by: Levetiracetam (Levetiracetam 500 Mg Tab) 500 mg PO DAILY [facility] Last Admin: 12/03/20 08:38 Dose: 500 mg Documented by: Methylprednisolone Sodium Succinate (Methylprednisolone Sod Succi 40 Mg/Ml 1 Ml Vial) 20 mg IV Q8HR [facility] Last Admin: 12/03/20 08:39 Dose: 20 mg Documented by: Naloxone HCl (Naloxone 0.4 Mg/Ml 1 Ml Vial) 0.2 mg IV Q2M PRN PRN Reason: Opioid Reversal Nortriptyline HCl (Nortriptyline 10 Mg Cap) 10 mg PO BID [facility] Last Admin: 12/03/20 08:38 Dose: 10 mg Documented by: Pantoprazole Sodium (Pantoprazole 40 Mg Tablet) 40 mg PO AC-BRKFST [facility] Last Admin: 12/03/20 08:38 Dose: 40 mg Documented by: Prochlorperazine Edisylate (Prochlorperazine Inj 10 Mg/2 Ml Vial) 10 mg IVP Q6HR PRN PRN Reason: Nausea And Vomiting Objective - Vital Signs Vital signs: Vital Signs Temp 97.6 F 12/03/20 04:17 Pulse 86 12/03/20 04:17 Resp 16 12/03/20 04:17 BP 115/77 12/03/20 04:17 Pulse Ox 98 12/03/20 04:17 Intake & Output 12/02/20 12/03/20 12/03/20 18:59 06:59 18:59 Output Total 1413 200 Balance -1413 -200 Weight 88.451 kg Output: Gastric Drainage 1300 200 Post Void Residual 113 Other: Voiding Method Toilet # Voids 2 - Exam GENERAL: Comfortably lying up in the bed appears to be no acute distress. HEENT: Pupils are round and equally reacting to light. EOMI. No scleral icterus. No conjunctival pallor. NG tube in place with continued intermittent low suction CARDIOVASCULAR: S1 and S2 present. No murmurs, rubs, or gallops. PULMONARY: Bilateral breath sounds positive. No wheeze or crackles.. ABDOMEN: Diatended, Hypoactive bowel sounds MUSCULOSKELETAL: No joint swelling or deformity. EXTREMITIES: No edema NEUROLOGICAL: Gross neurological examination did not reveal any focal deficits. SKIN:No rash - Labs CBC & Chem 7: 12/03/20 05:26 12/03/20 05:26 Labs: Abnormal Lab Results - Last 24 Hours (Table) 12/02/20 12/02/20 12/02/20 Range/Units 05:17 05:17 11:27 RBC 4.25 L (4.40-5.60) X 10*6/uL MCV 100.2 H (80.0-97.0) fL MCH 32.5 H (27.0-32.0) pg RDW 15.1 H (11.5-14.5) % Absolute Nucleated RBC 0.03 H (0.00-0.00) X 10*3/uL Immature Gran # 0.11 H (0.00-0.04) X 10*3/uL Monocytes # 1.09 H (0.20-1.00) X 10*3/uL NRBC/100 WBC Diff 0.3 H (0.0-0.0) /100 WBCS Carbon Dioxide 16.8 L (21.6-31.8) mmol/L Anion Gap 19.20 H (4.00-12.00) mmol/L BUN 37.0 H (9.0-27.0) mg/dL Creatinine 2.0 H (0.6-1.5) mg/dL Est GFR (CKD-EPI)AfAm 39.1 L (60.0-200.0) Est GFR (CKD-EPI)NonAf 33.8 L (60.0-200.0) Glucose 170 H (70-110) mg/dL POC Glucose (mg/dL) 206 H (75-99) mg/dL 12/02/20 12/02/20 12/03/20 Range/Units 16:46 20:00 05:26 RBC 3.92 L (4.40-5.60) X 10*6/uL MCV 102.1 H (80.0-97.0) fL MCH (27.0-32.0) pg RDW 15.8 H (11.5-14.5) % Absolute Nucleated RBC (0.00-0.00) X 10*3/uL Immature Gran # (0.00-0.04) X 10*3/uL Monocytes # (0.20-1.00) X 10*3/uL NRBC/100 WBC Diff (0.0-0.0) /100 WBCS Carbon Dioxide (21.6-31.8) mmol/L Anion Gap (4.00-12.00) mmol/L BUN (9.0-27.0) mg/dL Creatinine (0.6-1.5) mg/dL Est GFR (CKD-EPI)AfAm (60.0-200.0) Est GFR (CKD-EPI)NonAf (60.0-200.0) Glucose (70-110) mg/dL POC Glucose (mg/dL) 197 H 190 H (75-99) mg/dL 12/03/20 Range/Units 07:04 RBC (4.40-5.60) X 10*6/uL MCV (80.0-97.0) fL MCH (27.0-32.0) pg RDW (11.5-14.5) % Absolute Nucleated RBC (0.00-0.00) X 10*3/uL Immature Gran # (0.00-0.04) X 10*3/uL Monocytes # (0.20-1.00) X 10*3/uL NRBC/100 WBC Diff (0.0-0.0) /100 WBCS Carbon Dioxide (21.6-31.8) mmol/L Anion Gap (4.00-12.00) mmol/L BUN (9.0-27.0) mg/dL Creatinine (0.6-1.5) mg/dL Est GFR (CKD-EPI)AfAm (60.0-200.0) Est GFR (CKD-EPI)NonAf (60.0-200.0) Glucose (70-110) mg/dL POC Glucose (mg/dL) 253 H (75-99) mg/dL Assessment and Plan Assessment: Small bowel obstruction secondary to Crohn's disease Acute Crohn's exacerbation Acute kidney injury due to vomiting History of 5 bowel resections Asthma CVA/TIA Diabetes mellitus History of provoked right arm DVT Multiple joint osteoarthritis GERD History of nephrolithiasis History of prostate surgery History of cholecystectomy Former smoker GI prophylaxis DVT prophylaxis Full code PLAN : Patient is nothing by mouth except ice chips and popsicles and does have a continued NG tube noted. This morning there was noted bowel sounds heard in all 4 quadrants although patient denies passing gas or having bowel movements. This afternoon shows decreased bowel sounds noted in patient denies any further abdominal pain or nausea and vomiting and has been tolerating ice chips and popsicles. Patient's kidney functions are worsening and current creatinine is 2.6 and maintained on IV fluids. Patient also continues on high-dose IV steroids with GI following closely. Surgery following as well recommending conservative management for now. Will consult nephrology and obtain a renal ultrasound. Patient states he is urinating with no difficulties and denies any diminished urinary output or difficulty with urination. Further recommendations to follow depending on the progress of the patient. Prognosis is guarded.
--- NOTE | 2020-12-03 16:21 | US ---
EXAMINATION TYPE: US kidneys/renal and bladder DATE OF EXAM: 12/03/2020 COMPARISON: CT 12/01/2020 CLINICAL HISTORY: Worsening creatinine. history of kidney stone EXAM MEASUREMENTS: Right Kidney: 11.7 x 4.8 x 4.9 cm Left Kidney: 11.6 x 6.0 x 4.3 cm Right Kidney: stone lower pole = 1.5cm Left Kidney: no evidence of hydronephrosis Bladder: appears wnl Bilateral Jets seen: no, not evaluated under color Doppler There is no evidence for hydronephrosis at this point in time. Cortical medullary differentiation is maintained bilaterally.. No masses are identified. The urinary bladder is anechoic. IMPRESSION: Right-sided nephrolithiasis correlates with patient's CT is nonobstructive, no hydronephrosis
[2020-12-03 17:10] LABS: Glucose,Whole Blood 212 mg/dL (75-99)
[2020-12-03 18:43] LABS: Erythrocyte Sedimentation Rate 66 mm/Hr (0-20)
[2020-12-03 20:21] LABS: Glucose,Whole Blood 194 mg/dL (75-99)
[2020-12-04] MEDS: HYDROmorphone 1 MG/ML 1 ML SYRINGE IVP PRN ×5 (00:21→22:41)
[2020-12-04] MEDS: methylPREDNISolone SOD SUCCI 40 MG/ML 1 ML VIAL IV SCH ×3 (00:21→15:59)
[2020-12-04 06:35] LABS: ALT 16 U/L (4-49); AST 40 U/L (17-59); African American GFR (CKD) 54 (>60 ml/min/1.73 sqM); Albumin 4.1 g/dL (3.5-5.0); Albumin/Globulin Ratio 1.1; Alkaline Phosphatase 95 U/L (38-126); Anion Gap 13 mmol/L; Blood Urea Nitrogen 76 mg/dL (9-20); Calcium 8.4 mg/dL (8.4-10.2); Carbon Dioxide 17 mmol/L (22-30); Chloride 109 mmol/L (98-107); Globulin 3.8 g/dL; Glucose 299 mg/dL (74-99); Non-African American GFR(CKD) 47 (>60 ml/min/1.73 sqM); Potassium 5.4 mmol/L (3.5-5.1); Sodium 139 mmol/L (137-145); Total Bilirubin 1.2 mg/dL (0.2-1.3); Total Protein 7.9 g/dL (6.3-8.2)
[2020-12-04] MEDS: SYMBICORT 160-4.5 MCG INHALER INHALATION SCH ×2 (06:59→19:32)
[2020-12-04] MEDS: IPRATROPIUM-ALBUTEROL 3 ML NEB INHALATION SCH ×3 (06:59→19:32)
[2020-12-04 07:17] LABS: Glucose,Whole Blood 271 mg/dL (75-99)
[2020-12-04] MEDS: INSULIN ASPART (NovoLOG) 100 UNIT/ML VIAL SQ SCH ×4 (07:57→21:03)
[2020-12-04] MEDS: HEPARIN SODIUM,PORCINE/PF 5,000 UNIT/0.5 ML SYRINGE SQ SCH ×2 (07:57→21:02)
[2020-12-04] MEDS: NORTRIPTYLINE 10 MG CAP PO SCH ×2 (07:58→21:02)
[2020-12-04] MEDS: PANTOPRAZOLE 40 MG TABLET PO SCH (07:58)
[2020-12-04] MEDS: ATORVASTATIN 20 MG TAB PO SCH (07:59)
[2020-12-04] MEDS: BACLOFEN 10 MG TAB PO SCH ×2 (07:59→21:02)
[2020-12-04] MEDS: levETIRAcetam 500 MG TAB PO SCH ×2 (07:59→21:02)
[2020-12-04] MEDS: SODIUM CHLORIDE 0.9% 1,000 ML IV SCH (08:04)
[2020-12-04] MEDS ORDERED: SODIUM BICARB 8.4% 50 ML SYR (1 MEQ/ML) IV STA (09:49)
--- NOTE | 2020-12-04 09:51 | P.NPCON ---
History of Present Illness - Reason for Consult acute renal failure - History of Present Illness Reason for consultation: Acute kidney injury History of present illness: Patient is a 65-year-old male seen in renal consultation for acute kidney injury. Patient presented to the hospital with nausea and vomiting. He was noted to have small bowel obstruction. He does have history of Crohn's disease and has undergone multiple bowel resections in the past. No evidence of hydronephrosis was noted. He had an NG tube in place which has now been removed. He is currently nothing by mouth. He is receiving IV fluids. No vomiting or diarrhea. He does have long-standing history of diabetes mellitus. He was taking naproxen at home but is currently not on any nonsteroidals. Denies family history of renal disease. Good urine output. No hematuria or dysuria. Patient's baseline creatinine is near 1 and peaked at 2.6 this admission. It is down to 1.53 today. Vital signs are stable. General: The patient appeared well nourished and normally developed. HEENT: Head exam is unremarkable. Neck is without jugular venous distension. LUNGS: Breath sounds decreased. HEART: Rate and Rhythm are regular. ABDOMEN: Soft, no distention. Nontender. EXTREMITITES: No edema. Past Medical History Past Medical History: Asthma, CVA/TIA, Diabetes Mellitus, Deep Vein Thrombosis (DVT), GERD/Reflux, Osteoarthritis (OA), Skin Disorder Additional Past Medical History / Comment(s): HX OF KIDNEY STONES, CROHNS DISEASE, HX OF BLOOD CLOT RT ARM AND BEHIND RT KNEE, TIA/seizure/brain bleed 08/2016, see Dr Wright H&P, "spots of dry skin", hx anemia, september 2018 stone removed L kidney History of Any Multi-Drug Resistant Organisms: MRSA Date of last positivie culture/infection: 2006 MDRO Source:: nose Past Surgical History: Appendectomy, Back Surgery, Bowel Resection, Cholecystectomy, Heart Catheterization, Prostate Surgery Additional Past Surgical History / Comment(s): BOWEL RESECTION X 5, SPINAL SURGERIES X3, LEFT LOBECTOMY. lithotripsy, TURP, neck fusion. Past Anesthesia/Blood Transfusion Reactions: No Reported Reaction Past Psychological History: No Psychological Hx Reported Smoking Status: Former smoker Past Alcohol Use History: None Reported Past Drug Use History: None Reported - Past Family History Mother Family Medical History: Deep Vein Thrombosis (DVT) Medications and Allergies Home Medications Medication Instructions Recorded Confirmed Type levETIRAcetam [Keppra] 500 mg PO DAILY 02/22/17 12/01/20 History levETIRAcetam [Keppra] 1,000 mg PO HS 03/10/17 12/01/20 History Insulin Lispro [humaLOG Kwikpen] 5 unit SQ AC-TID 04/26/17 12/01/20 History Nitroglycerin Sl Tabs [Nitrostat] 0.4 mg SL Q5M PRN 04/26/17 12/01/20 History Albuterol Sulfate [Albuterol 2 puff INHALATION RT-Q4H PRN 01/21/20 12/01/20 History Sulfate Hfa] Insulin Lispro [humaLOG Kwikpen] See Protocol SQ AC-TID 01/21/20 12/01/20 History Budesonide/Formoterol Fumarate 2 puff INHALATION RT-BID 05/08/20 12/01/20 History [Symbicort 160-4.5 Mcg Inhaler] Pantoprazole Sodium [Protonix] 40 mg PO DAILY 05/08/20 12/01/20 History Atorvastatin [Lipitor] 20 mg PO DAILY 12/01/20 12/01/20 History Baclofen [Lioresal] 20 mg PO BID 12/01/20 12/01/20 History Certolizumab Pegol [Cimzia] 400 mg SQ Q14D 12/01/20 12/01/20 History Insulin Glargine,Hum.rec.anlog 20 unit SQ HS 12/01/20 12/01/20 History [Lantus Solostar Pen] Naproxen 500 mg PO BID 12/01/20 12/01/20 History Nortriptyline HCl [Pamelor] 10 mg PO BID 12/01/20 12/01/20 History Allergies Allergy/AdvReac Type Severity Reaction Status Date / Time aspirin Allergy Swelling Verified 12/01/20 15:01 ondansetron HCl [From Zofran] Allergy Unknown Verified 12/01/20 15:01 penicillin G Allergy Rash/Hives Verified 12/01/20 15:01 venom-wasp [Wasp Venom] Allergy Anaphylaxis Verified 12/01/20 15:01 nalbuphine HCl [From Nubain] AdvReac Vomiting Verified 12/01/20 15:01 Physical Exam Vitals: Vital Signs Temp Pulse Resp BP Pulse Ox 12/04/20 04:44 98 F 100 16 145/82 91 L 12/03/20 19:20 97.9 F 90 14 119/77 95 12/03/20 12:39 97.6 F 89 17 107/70 95 Intake and Output 12/03/20 12/04/20 12/04/20 22:59 06:59 14:59 Intake Total 1500 Output Total 800 Balance 700 Intake: Intake, IV Titration 900 Amount Sodium Chloride 0.9% 1, 900 000 ml @ 75 mls/hr IV . [id number] [facility] Rx#:[id number] Oral 600 Output: Gastric Drainage 800 Other: Voiding Method Toilet # Voids 5 Results - Lab Results Most recent lab results Calcium 8.4 mg/dL (8.4-10.2) 12/04/20 05:34 12/03/20 05:26 12/04/20 05:34 Assessment and Plan Plan: Assessment: 1. Acute kidney injury mostly prerenal secondary to hypovolemia and hypotension. Baseline creatinine is near 1 and peaked at 2.6 this admission. 1.53 today. Kidneys are normal in size without any evidence of hydronephrosis. 2. History of Crohn's disease status post multiple bowel resections. 3. Small bowel obstruction. Surgery following. 4. Rule out chronic kidney disease. He does have proteinuria on UA which is most likely secondary to underlying diabetic kidney disease. Further workup outpatient. 5. Metabolic acidosis secondary to acute kidney injury and IV fluids. 6. Mild hyperkalemia secondary to hyperglycemia and metabolic acidosis. 7. Diabetes mellitus. Plan: Maintain normal saline. 2 A of sodium bicarb IV push now. Tighter blood sugar control. Avoid nephrotoxins. Continue to monitor renal function and urine output. Repeat potassium level this evening. Thank you for the consultation. I will continue to follow the patient with you during his hospital stay.
--- NOTE | 2020-12-04 11:49 | P.PN ---
Subjective Progress Note Date: 12/04/20 CHIEF COMPLAINT: Abdominal pain HISTORY OF PRESENT ILLNESS: Patient followed for small bowel obstruction. Patient's NG tube actually came out last night. He reports minimal improvement in his abdominal pain. He denies any nausea or vomiting. He feels that his abdominal distention is slightly decreased since admission. He denies any flatus or BM. Afebrile. Sodium 139 potassium 5.4 CO2 17 creatinine 1.53 PHYSICAL EXAM: VITAL SIGNS: Reviewed. GENERAL: Well-developed in no acute distress. HEENT: No sclera icterus. Extraocular movements grossly intact. Moist buccal mucosa. Head is atraumatic, normocephalic. ABDOMEN: Soft. Distended tenderness with palpation of the right side abdomen NEUROLOGIC: Alert and oriented. Cranial nerves II through XII grossly intact. ASSESSMENT: 1. Small bowel obstruction likely secondary to Crohn's 2. Crohn's exacerbation 3. History of multiple bowel resections due to bowel obstructions from his Crohn's PLAN: -We will observe patient without NG tube. If abdominal distention, pain worsen or develops nausea and vomiting NG tube will likely need to be reinserted -Continue conservative management. Would try to avoid surgery if at all possible given the concern that patient may develop short bowel syndrome with any further surgical intervention -Keep patient nothing by mouth except for ice chips, popsicles medications -Continue treatment for Crohn's exacerbation per GI service -Continue IV fluids -Continue pain medication as needed -Encourage patient to ambulate Physician Heart Nurse note has been reviewed by physician. Signing provider agrees with the documented findings, assessment, and plan of care. Objective - Vital Signs Vital signs: Vital Signs Temp 98 F 12/04/20 04:44 Pulse 88 12/04/20 07:07 Resp 16 12/04/20 07:07 BP 145/82 12/04/20 04:44 Pulse Ox 91 L 12/04/20 04:44 Intake & Output 12/03/20 12/04/20 12/04/20 18:59 06:59 18:59 Intake Total 1860 Output Total 800 Balance 1060 Intake: Intake, IV Titration 900 Amount Sodium Chloride 0.9% 1, 900 000 ml @ 75 mls/hr IV . [id number] [facility] Rx#:[id number] Oral 960 Output: Gastric Drainage 800 Other: Voiding Method Toilet Toilet # Voids 5 - Labs CBC & Chem 7: 08/24/21 05:26 12/04/20 05:34 Labs: Abnormal Lab Results - Last 24 Hours (Table) 12/03/20 12/03/20 12/03/20 Range/Units 05:26 11:50 17:04 ESR 66 H (0-20) mm/Hr Potassium (3.5-5.1) mmol/L Chloride (98-107) mmol/L Carbon Dioxide (22-30) mmol/L BUN (9-20) mg/dL Creatinine (0.66-1.25) mg/dL Glucose (74-99) mg/dL POC Glucose (mg/dL) 229 H 212 H (75-99) mg/dL 12/03/20 12/04/20 12/04/20 Range/Units 20:18 05:34 07:15 ESR (0-20) mm/Hr Potassium 5.4 H (3.5-5.1) mmol/L Chloride 109 H (98-107) mmol/L Carbon Dioxide 17 L (22-30) mmol/L BUN 76 H (9-20) mg/dL Creatinine 1.53 H (0.66-1.25) mg/dL Glucose 299 H (74-99) mg/dL POC Glucose (mg/dL) 194 H 271 H (75-99) mg/dL
[2020-12-04 12:24] LABS: Glucose,Whole Blood 199 mg/dL (75-99)
[2020-12-04 12:50] LABS: C Reactive Protein 4.9 mg/dL (<1.0)
--- NOTE | 2020-12-04 14:56 | P.PN ---
Subjective Progress Note Date: 12/04/20 Principal diagnosis: Crohn's disease 65-year-old male who presented to the emergency department 2 days ago with complaints of abdominal pain associated with nausea and vomiting. Patient has significant history of Crohn's disease affecting the small large bowel requiring prior surgical resection. He was recently started on Cymzia in October of this year as treatment 11/15/2020 with some improvement in amount of bowel movements. Patient states abdominal pain has improved slightly, he is not having any nausea or vomiting. NG tube discontinued. He is tolerating popsicles and ice chips. No bowel movement, did pass some gas. Gen. surgery is following patient. He remains on IV Solu-Medrol. Objective - Vital Signs Vital signs: Vital Signs Temp 98 F 12/04/20 04:44 Pulse 88 12/04/20 07:07 Resp 16 12/04/20 07:07 BP 145/82 12/04/20 04:44 Pulse Ox 91 L 12/04/20 04:44 Intake & Output 12/03/20 12/04/20 12/04/20 18:59 06:59 18:59 Intake Total 1860 Output Total 800 Balance 1060 Intake: Intake, IV Titration 900 Amount Sodium Chloride 0.9% 1, 900 000 ml @ 75 mls/hr IV . [id number] [facility] Rx#:[id number] Oral 960 Output: Gastric Drainage 800 Other: Voiding Method Toilet Toilet # Voids 5 - Exam General appearance: The patient is alert, oriented, appears in no acute distress. HET: Head is normocephalic and atraumatic. Conjunctiva pink. Sclera anicteric. Neck: Supple without lymphadenopathy. Abdomen: Soft, mild tenderness, incisional scar mid abdomen, nondistended with bowel sounds. No guarding or rigidity. Extremities: Normal skin color and turgor. No pedal edema Skin: No rashes, no jaundice Neurological: No focal deficits. Alert and oriented 3. - Labs CBC & Chem 7: 12/03/20 05:26 12/04/20 05:34 Labs: Abnormal Lab Results - Last 24 Hours (Table) 12/03/20 12/03/20 12/03/20 Range/Units 05:26 11:50 17:04 ESR 66 H (0-20) mm/Hr Potassium (3.5-5.1) mmol/L Chloride (98-107) mmol/L Carbon Dioxide (22-30) mmol/L BUN (9-20) mg/dL Creatinine (0.66-1.25) mg/dL Glucose (74-99) mg/dL POC Glucose (mg/dL) 229 H 212 H (75-99) mg/dL 12/03/20 12/04/20 12/04/20 Range/Units 20:18 05:34 07:15 ESR (0-20) mm/Hr Potassium 5.4 H (3.5-5.1) mmol/L Chloride 109 H (98-107) mmol/L Carbon Dioxide 17 L (22-30) mmol/L BUN 76 H (9-20) mg/dL Creatinine 1.53 H (0.66-1.25) mg/dL Glucose 299 H (74-99) mg/dL POC Glucose (mg/dL) 194 H 271 H (75-99) mg/dL Assessment and Plan (1) Crohn's disease Narrative/Plan: 65-year-old male with a long-standing history of Crohn's disease who has unde rgone 5 previous bowel surgeries done at [facility] last one in January 2015. Patient was recently started onCymzia in October of this year, last dose November 15. Patient presented to the emergency department with complaints of abdominal pain associated with nausea and vomiting, which he describes similar to his previous small bowel obstructions. Patient also reports no bowel movement since , normal for him would be to 4 loose bowel movements today. He states no coffee-ground or hematemesis. He states he has had some improvement in his bowel movement since starting the Cymzia he he went from 8 to 4 bowel movements daily. He was recently admitted in September of this year for Crohn's exacerbation and at that time his CT of the abdomen and pelvis is similar to findings from today showing small bowel obstruction similar to that of 09/21/2020 with dilated loops of small bowel leading to a cluster of dilated small bowel loops in the right hemiabdomen, which measures up to 4.5 cm in diameter. Close loop obstruction is not entirely excluded and recommend appropriate clinical laborat ory correlation. NG tube is currently in place. Sed rate and CRP ordered, will start patient on high-dose steroids. Gen. surgery is on consult for small bowel obstruction. Patient symptoms improving, continue IV Solu-Medrol 20 mg every 8 hours Current Visit: No Status: Acute Code(s): K50.90 - CROHN'S DISEASE, UNSPEC IFIED, WITHOUT COMPLICATIONS SNOMED Code(s): 91619792 (2) Abdominal pain Current Visit: Yes Status: Acute Code(s): R10.9 - UNSPECIFIED ABDOMINAL PAIN SNOMED Code(s): 93213352 (3) Small bowel obstruction Current Visit: Yes Status: Acute Code(s): K56.609 - UNSP INTESTNL OBST, UNSP TO PARTIAL VERSUS COMPLETE OBST SNOMED Code(s): 415124627 Plan: 1. Continue symptomatic and supportive care 2. Pain medications as needed 3. Antiemetics as needed 4. Diet per surgical recommendations, Continue with ice chips and popsicle 5. Continue Solu-Medrol 20 mg IV every 8 hours 6. Gen. surgery on consult, following patient closely and continuing with conservative management. Thank you for this consultation, we will continue to follow closely. Dr. Radha Wade I agree with the dictator's note, documented as a scribe by Colleen Urrutia.
--- NOTE | 2020-12-04 15:19 | P.PN ---
Subjective Progress Note Date: 12/04/20 Mr. Hickey is a 65-year-old male with a past medical history of CVA/TIA, asthma, diabetes mellitus, DVT, GERD, osteoarthritis, nephrolithiasis, Crohn's disease, right arm DVT, coming in the hospital with a chief complaint of abdominal pain for the past 2 to 3 days. Patient has Crohn's disease with 5 bowel resections done at [facility] in the past. He also has multiple histories of similar admissions in the past for exacerbation of Crohn's disease. Patient complains of pain in his epigastric abdominal area associated with nausea and vomiting, that he is not able to keep his solids or fluids down. Patient denied having any fevers chills or rigors. He denied having any diarrhea. Patient denied having any chest pain or palpitations. No cough or difficulty in breathing. No dysuria or hematuria. He denied having any headaches, blurring of vision or neck pain. In the ED patient's vitals at the time of admission temperature 98, heart rate 110, respiratory 16, blood pressure 74/49 saturating at 96% on room air. Patient had a CAT scan of the abdomen and pelvis showing small bowel obstruction appearance similar to 09/21/2020 with dilated loops of small bowel leading to cluster of dilated small bowel loops in the right hemiabdomen measuring up to 4.5 cm in diameter. There is mild progressive focal nodule and groundglass appearance in the right lung base could be aspiration if patient is vomiting. On reviewing his labs white count of 9.7, hemoglobin 13.8 and platelets 174. Sodium 139, potassium 4.4, chloride 103, bicarb 6 team, BUN 37, creatinine 2. 12/03/2020 Patient is seen in follow-up this morning and is being closely monitored by surgery along with GI and patient is maintained on nothing by mouth diet except for ice chips and popsicles and has continued NG tube placed. Patient denies any passing of gas or bowel movements but did have positive bowel sounds this morning. Patient is also continued on normal saline along with home medications. Patient continues on sliding scale as well as he is on IV steroids and will continue to monitor Accu-Cheks before meals and at bedtime. Patient denies any nausea or vomiting. Abdomen is mildly distended but soft with no guarding or rigidity noted. White blood count is 9.5, hemoglobin is 13.1, sodium is 139 with a potassium of 4.8 current BUN is 63 and creatinine is 2.6. 12/04/2020 Patient is seen and evaluated in follow-up this morning and is being closely monitored for small bowel obstruction. Patient did have an NG tube which was accidentally removed again during position changes and had minimal output noted and okay to keep out per surgery and will need to replace his abdomen continues to be more distended with increasing nausea and vomiting and abdominal pain. Patient reports that he has continued abdominal discomfort but denies any nausea or vomiting. Patient is not passing gas or has had any bowel movements. Bowel sounds noted on exam. Nephrology was consulted for worsening creatinine and repeat creatinine today is 1.53 with a BUN of 76, sodium is 139 with a potassium of 5.4. CRP is 4.9. Patient is receiving sodium bicarb IV push today. Review of systems: Constitutional: No reports of fatigue, fever, or chills Cardiovascular: No reports of chest pain or palpitations Respiratory: No reports of shortness of breath or cough GI: No reports of nausea, vomiting, or diarrhea, reports gurgling heard in his stomach with no reports of passing gas or bowel movement : No reports of dysuria or retention Neurovascular: No reports of weakness or numbness All medications have been reviewed Active Medications Albuterol Sulfate (Albuterol Nebulized 2.5 Mg/3 Ml) 2.5 mg INHALATION RT-Q4H PRN PRN Reason: Shortness Of Breath Last Admin: 12/03/20 08:05 Dose: 2.5 mg Documented by: Albuterol/Ipratropium (Ipratropium-Albuterol 3 Ml Neb) 3 ml INHALATION RT-TID [facility] Last Admin: 12/04/20 12:32 Dose: Not Given Documented by: Atorvastatin Calcium (Atorvastatin 20 Mg Tab) 20 mg PO DAILY [facility] Last Admin: 12/04/20 07:59 Dose: 20 mg Documented by: Baclofen (Baclofen 10 Mg Tab) 20 mg PO BID [facility] Last Admin: 12/04/20 07:59 Dose: 20 mg Documented by: Budesonide/Formoterol Fumarate (Symbicort 160-4.5 Mcg Inhaler) 2 puff INHALATION RT-BID [facility] Last Admin: 12/04/20 06:59 Dose: 2 puff Documented by: Heparin Sodium (Porcine) (Heparin Sodium,Porcine/Pf 5,000 Unit/0.5 Ml Syringe) 5,000 unit SQ Q12HR [facility] Last Admin: 12/04/20 07:57 Dose: 5,000 unit Documented by: Hydromorphone HCl (Hydromorphone 1 Mg/Ml 1 Ml Syringe) 1 mg IVP Q3HR PRN PRN Reason: Severe Pain Last Admin: 12/04/20 11:27 Dose: 1 mg Documented by: Sodium Chloride (Saline 0.9%) 1,000 mls @ 75 mls/hr IV .[id number] [facility] Last Admin: 12/04/20 08:04 Dose: 75 mls/hr Documented by: Insulin Aspart (Insulin Aspart (Novolog) 100 Unit/Ml Vial) 0 unit SQ ACHS [facility]; Protocol Last Admin: 12/04/20 12:54 Dose: 5 unit Documented by: Levetiracetam (Levetiracetam 500 Mg Tab) 1,000 mg PO HS [facility] Last Admin: 12/03/20 20:28 Dose: 1,000 mg Documented by: Levetiracetam (Levetiracetam 500 Mg Tab) 500 mg PO DAILY [facility] Last Admin: 12/04/20 07:59 Dose: 500 mg Documented by: Methylprednisolone Sodium Succinate (Methylprednisolone Sod Succi 40 Mg/Ml 1 Ml Vial) 20 mg IV Q8HR [facility] Last Admin: 12/04/20 07:58 Dose: 20 mg Documented by: Naloxone HCl (Naloxone 0.4 Mg/Ml 1 Ml Vial) 0.2 mg IV Q2M PRN PRN Reason: Opioid Reversal Nortriptyline HCl (Nortriptyline 10 Mg Cap) 10 mg PO BID [facility] Last Admin: 12/04/20 07:58 Dose: 10 mg Documented by: Pantoprazole Sodium (Pantoprazole 40 Mg Tablet) 40 mg PO AC-BRKFST [facility] Last Admin: 12/04/20 07:58 Dose: 40 mg Documented by: Prochlorperazine Edisylate (Prochlorperazine Inj 10 Mg/2 Ml Vial) 10 mg IVP Q6HR PRN PRN Reason: Nausea And Vomiting Objective - Vital Signs Vital signs: Vital Signs Temp 98 F 12/04/20 04:44 Pulse 88 12/04/20 07:07 Resp 16 12/04/20 07:07 BP 145/82 12/04/20 04:44 Pulse Ox 91 L 12/04/20 04:44 Intake & Output 12/03/20 12/04/20 12/04/20 18:59 06:59 18:59 Intake Total 1860 Output Total 800 Balance 1060 Intake: Intake, IV Titration 900 Amount Sodium Chloride 0.9% 1, 900 000 ml @ 75 mls/hr IV . [id number] [facility] Rx#:[id number] Oral 960 Output: Gastric Drainage 800 Other: Voiding Method Toilet Toilet # Voids 5 - Exam GENERAL: Comfortably lying up in the bed appears to be no acute distress. HEENT: Pupils are round and equally reacting to light. EOMI. No scleral icterus. No conjunctival pallor. CARDIOVASCULAR: S1 and S2 present. No murmurs, rubs, or gallops. PULMONARY: Bilateral breath sounds positive. No wheeze or crackles.. ABDOMEN: Diatended, Hypoactive bowel sounds MUSCULOSKELETAL: No joint swelling or deformity. EXTREMITIES: No edema NEUROLOGICAL: Gross neurological examination did not reveal any focal deficits. SKIN:No rash - Labs CBC & Chem 7: 12/03/20 05:26 12/04/20 05:34 Labs: Abnormal Lab Results - Last 24 Hours (Table) 12/03/20 12/03/20 12/03/20 Range/Units 05:26 17:04 20:18 ESR 66 H (0-20) mm/Hr Potassium (3.5-5.1) mmol/L Chloride (98-107) mmol/L Carbon Dioxide (22-30) mmol/L BUN (9-20) mg/dL Creatinine (0.66-1.25) mg/dL Glucose (74-99) mg/dL POC Glucose (mg/dL) 212 H 194 H (75-99) mg/dL C-Reactive Protein (<1.0) mg/dL 12/04/20 12/04/20 12/04/20 Range/Units 05:34 07:15 12:22 ESR (0-20) mm/Hr Potassium 5.4 H (3.5-5.1) mmol/L Chloride 109 H (98-107) mmol/L Carbon Dioxide 17 L (22-30) mmol/L BUN 76 H (9-20) mg/dL Creatinine 1.53 H (0.66-1.25) mg/dL Glucose 299 H (74-99) mg/dL POC Glucose (mg/dL) 271 H 199 H (75-99) mg/dL C-Reactive Protein 4.9 H (<1.0) mg/dL Assessment and Plan Assessment: Small bowel obstruction secondary to Crohn's disease Acute Crohn's exacerbation Acute kidney injury most likely prerenal azotemia secondary to hypovolemia and vomiting History of 5 bowel resections Asthma CVA/TIA Diabetes mellitus History of provoked right arm DVT Multiple joint osteoarthritis GERD History of nephrolithiasis History of prostate surgery History of cholecystectomy Former smoker GI prophylaxis DVT prophylaxis Full code PLAN: Patient is nothing by mouth except ice chips and popsicles and had an NG tube but was accidentally removed by patient and per surgery okay to continue without unless further abdominal distention is noted or increasing in nausea and vomi ting develops. Patient's kidney functions improving today at 1.53 and nephrology now following. Renal ultrasound within normal limits with no hydronephrosis noted. Patient receiving sodium bicarb and potassium is slightly elevated and will repeat labs. Patient also continues on high-dose IV steroids with GI following closely. Surgery following as well recommending conservative management for now. Patient continues with abdominal discomfort but denies any nausea or vomiting and continues to have no gas or bowel movements noted as of yet today. Further recommendations to follow depending on the progress of the patient. Prognosis is guarded.
[2020-12-04 17:25] LABS: Glucose,Whole Blood 181 mg/dL (75-99)
[2020-12-04 20:50] LABS: Glucose,Whole Blood 186 mg/dL (75-99)
[2020-12-05] MEDS: SODIUM CHLORIDE 0.9% 1,000 ML IV SCH ×2 (01:16→08:26)
[2020-12-05] MEDS: methylPREDNISolone SOD SUCCI 40 MG/ML 1 ML VIAL IV SCH ×4 (01:19→23:40)
[2020-12-05] MEDS: HYDROmorphone 1 MG/ML 1 ML SYRINGE IVP PRN ×5 (02:54→22:05)
[2020-12-05] MEDS: IPRATROPIUM-ALBUTEROL 3 ML NEB INHALATION SCH ×3 (07:25→20:19)
[2020-12-05] MEDS: SYMBICORT 160-4.5 MCG INHALER INHALATION SCH ×2 (07:25→20:19)
[2020-12-05 07:50] LABS: Glucose,Whole Blood 213 mg/dL (75-99)
[2020-12-05] MEDS: BACLOFEN 10 MG TAB PO SCH ×2 (08:12→21:36)
[2020-12-05] MEDS: INSULIN ASPART (NovoLOG) 100 UNIT/ML VIAL SQ SCH ×4 (08:12→21:41)
[2020-12-05] MEDS: HEPARIN SODIUM,PORCINE/PF 5,000 UNIT/0.5 ML SYRINGE SQ SCH ×2 (08:12→21:36)
[2020-12-05] MEDS: ATORVASTATIN 20 MG TAB PO SCH (08:12)
[2020-12-05] MEDS: NORTRIPTYLINE 10 MG CAP PO SCH ×2 (08:12→21:46)
[2020-12-05] MEDS: levETIRAcetam 500 MG TAB PO SCH ×2 (08:13→21:36)
[2020-12-05] MEDS: PANTOPRAZOLE 40 MG TABLET PO SCH (08:13)
[2020-12-05 09:51] LABS: African American GFR (CKD) 72.6 (60.0-200.0); Anion Gap 13.5 mmol/L (4.00-12.00); BUN/Creat Ratio 54.17 Ratio (12.00-20.00); Calcium 8.4 mg/dL (8.7-10.3); Carbon Dioxide 23.5 mmol/L (21.6-31.8); Non-African American GFR(CKD) 62.6 (60.0-200.0); Potassium 4.7 mmol/L (3.5-5.5)
--- NOTE | 2020-12-05 10:32 | P.PN ---
Subjective Patient is seen in follow-up for acute kidney injury. Renal function continues to improve with IV fluids. Receiving IV fluids. No vomiting or diarrhea. Good urine output. Vital signs are stable. General: The patient appeared well nourished and normally developed. HEENT: Head exam is unremarkable. Neck is without jugular venous distension. LUNGS: Breath sounds decreased. HEART: Rate and Rhythm are regular. ABDOMEN: Soft, no tenderness. EXTREMITITES: No edema. Objective - Vital Signs Vital signs: Vital Signs Temp 97.0 F L 12/05/20 04:49 Pulse 82 12/05/20 07:35 Resp 16 12/05/20 07:35 BP 138/81 12/05/20 04:49 Pulse Ox 97 12/05/20 04:49 Intake & Output 12/04/20 12/05/20 12/05/20 18:59 06:59 18:59 Intake Total 900 0 Balance 900 0 Intake: Intake, IV Titration 900 Amount Sodium Chloride 0.9% 1, 900 000 ml @ 75 mls/hr IV . [id number] [facility] Rx#:[id number] Oral 0 Other: Voiding Method Toilet # Voids 1 - Labs CBC & Chem 7: 12/03/20 05:26 12/05/20 05:09 Labs: Abnormal Lab Results - Last 24 Hours (Table) 12/04/20 12/04/20 12/04/20 Range/Units 05:34 12:22 17:24 Sodium (135-145) mmol/L Potassium 5.4 H (3.5-5.1) mmol/L Chloride 109 H (98-107) mmol/L Carbon Dioxide 17 L (22-30) mmol/L Anion Gap (4.00-12.00) mmol/L BUN 76 H (9-20) mg/dL Creatinine 1.53 H (0.66-1.25) mg/dL BUN/Creatinine Ratio (12.00-20.00) Ratio Glucose 299 H (74-99) mg/dL POC Glucose (mg/dL) 199 H 181 H (75-99) mg/dL Calcium (8.7-10.3) mg/dL C-Reactive Protein 4.9 H (<1.0) mg/dL 12/04/20 12/05/20 12/05/20 Range/Units 20:43 05:09 07:49 Sodium 146 H (135-145) mmol/L Potassium (3.5-5.1) mmol/L Chloride (98-107) mmol/L Carbon Dioxide (22-30) mmol/L Anion Gap 13.50 H (4.00-12.00) mmol/L BUN 65.0 H (9-20) mg/dL Creatinine (0.66-1.25) mg/dL BUN/Creatinine Ratio 54.17 H (12.00-20.00) Ratio Glucose 201 H (74-99) mg/dL POC Glucose (mg/dL) 186 H 213 H (75-99) mg/dL Calcium 8.4 L (8.7-10.3) mg/dL C-Reactive Protein (<1.0) mg/dL Assessment and Plan Plan: Assessment: 1. Acute kidney injury mostly prerenal secondary to hypovolemia and hypotension. Baseline creatinine is near 1 and peaked at 2.6 this admission. 1.2 today. Kidneys are normal in size without any evidence of hydronephrosis. 2. History of Crohn's disease status post multiple bowel resections. 3. Small bowel obstruction. Surgery following. 4. Rule out chronic kidney disease. He does have proteinuria on UA which is most likely secondary to underlying diabetic kidney disease. Further workup outpatient. 5. Metabolic acidosis secondary to acute kidney injury and IV fluids. Improved. 6. Mild hyperkalemia secondary to hyperglycemia and metabolic acidosis. Improved. 7. Diabetes mellitus. 8. Mild hypernatremia from lack of oral water intake. Plan: I will change IV fluids to half-normal saline to be run at 75 mL an hour. Avoid nephrotoxins. Continue to monitor renal function and urine output. Repeat UA.
[2020-12-05] MEDS: SODIUM CHLORIDE 0.45% 1,000 ML IV SCH (11:26)
--- NOTE | 2020-12-05 11:40 | P.PN ---
Subjective Progress Note Date: 12/05/20 CHIEF COMPLAINT: Abdominal pain HISTORY OF PRESENT ILLNESS: Patient followed for small bowel obstruction. Patient's NG tube was able to remain out. He did admit to some nausea this morning. But he is feeling better today he's had decrease in abdominal pain. Still had no bowel movement or flatus. Denies any vomiting. Afebrile sodium 146 creatinine 1. PHYSICAL EXAM: VITAL SIGNS: Reviewed. GENERAL: Well-developed in no acute distress. HEENT: No sclera icterus. Extraocular movements grossly intact. Moist buccal mucosa. Head is atraumatic, normocephalic. ABDOMEN: Soft. Nondistended. Mild tenderness with palpation of the right side NEUROLOGIC: Alert and oriented. Cranial nerves II through XII grossly intact. ASSESSMENT: 1. Small bowel obstruction likely secondary to Crohn's 2. Crohn's exacerbation 3. History of multiple bowel resections due to bowel obstructions from his Crohn's PLAN: -Continue conservative management. Would try to avoid surgery if at all possible given the concern that patient may develop short bowel syndrome with any further surgical intervention -Keep patient nothing by mouth except for ice chips, popsicles medications -Continue treatment for Crohn's exacerbation per GI service -Continue IV fluids -Continue pain medication as needed -Encourage patient to ambulate Physician Broadcast Operations Manager note has been reviewed by physician. Signing provider agrees with the documented findings, assessment, and plan of care. Objective - Vital Signs Vital signs: Vital Signs Temp 97.0 F L 12/05/20 04:49 Pulse 82 12/05/20 07:35 Resp 16 12/05/20 07:35 BP 138/81 12/05/20 04:49 Pulse Ox 97 12/05/20 04:49 Intake & Output 12/04/20 12/05/20 12/05/20 18:59 06:59 18:59 Intake Total 900 0 Balance 900 0 Intake: Intake, IV Titration 900 Amount Sodium Chloride 0.9% 1, 900 000 ml @ 75 mls/hr IV . [id number] [facility] Rx#:[id number] Oral 0 Other: Voiding Method Toilet # Voids 1 1 - Labs CBC & Chem 7: 12/03/20 05:26 12/05/20 05:09 Labs: Abnormal Lab Results - Last 24 Hours (Table) 12/04/20 12/04/20 12/04/20 Range/Units 05:34 12:22 17:24 Sodium (135-145) mmol/L Potassium 5.4 H (3.5-5.1) mmol/L Chloride 109 H (98-107) mmol/L Carbon Dioxide 17 L (22-30) mmol/L Anion Gap (4.00-12.00) mmol/L BUN 76 H (9-20) mg/dL Creatinine 1.53 H (0.66-1.25) mg/dL BUN/Creatinine Ratio (12.00-20.00) Ratio Glucose 299 H (74-99) mg/dL POC Glucose (mg/dL) 199 H 181 H (75-99) mg/dL Calcium (8.7-10.3) mg/dL C-Reactive Protein 4.9 H (<1.0) mg/dL 12/04/20 12/05/20 12/05/20 Range/Units 20:43 05:09 07:49 Sodium 146 H (135-145) mmol/L Potassium (3.5-5.1) mmol/L Chloride (98-107) mmol/L Carbon Dioxide (22-30) mmol/L Anion Gap 13.50 H (4.00-12.00) mmol/L BUN 65.0 H (9-20) mg/dL Creatinine (0.66-1.25) mg/dL BUN/Creatinine Ratio 54.17 H (12.00-20.00) Ratio Glucose 201 H (74-99) mg/dL POC Glucose (mg/dL) 186 H 213 H (75-99) mg/dL Calcium 8.4 L (8.7-10.3) mg/dL C-Reactive Protein (<1.0) mg/dL
--- NOTE | 2020-12-05 12:16 | XR ---
EXAMINATION TYPE: XR chest 1V portable DATE OF EXAM: 12/05/2020 Comparison: 06/05/2017 and 12/26/2019 Clinical History: 65-year-old male shortness of breath Findings: Heart normal size. Continued blunting of the lateral right costophrenic angle. Mild patchy density pe riphery of the left base. Impression: Continued blunting of the lateral right costophrenic angle suggesting pleural parenchymal scarring. M inimal opacity peripheral left base could represent atelectasis or early infiltrate. The former is fa vored. Clinically correlate.
[2020-12-05 12:17] LABS: Appearance,Urine Cloudy (Clear); Bilirubin,Urine Negative (Negative); Blood,Urine Large (Negative); Color,Urine Yellow; Glucose,Urine (UA) Negative (Negative); Ketones,Urine Negative (Negative); Leukocyte Esterase,Urine Small (Negative); Mucus,Urine Rare /hpf; Nitrite,Urine Negative (Negative); PH, Urine 5.5 (5.0-8.0); Protein,Urine Trace (Negative); RBC,Urine 134 /hpf (0-5); Specific Gravity,Urine 1.022 (1.001-1.035); Squamous Epithelial Cell,Urine <1 /hpf (0-4); Uric Acid Crystals,Urine Occasional /hpf; Urobilinogen,Urine <2.0 mg/dL (<2.0); WBC,Urine 8 /hpf (0-5)
[2020-12-05 12:36] LABS: Glucose,Whole Blood 154 mg/dL (75-99)
[2020-12-05 13:09] VITALS: BMI 26.4
--- NOTE | 2020-12-05 13:54 | P.PN ---
Subjective Progress Note Date: 12/05/20 Mr. Hickey is a 65-year-old male with a past medical history of CVA/TIA, asthma, diabetes mellitus, DVT, GERD, osteoarthritis, nephrolithiasis, Crohn's disease, right arm DVT, coming in the hospital with a chief complaint of abdominal pain for the past 2 to 3 days. Patient has Crohn's disease with 5 bowel resections done at [facility] in the past. He also has multiple histories of similar admissions in the past for exacerbation of Crohn's disease. Patient complains of pain in his epigastric abdominal area associated with nausea and vomiting, that he is not able to keep his solids or fluids down. Patient denied having any fevers chills or rigors. He denied having any diarrhea. Patient denied having any chest pain or palpitations. No cough or difficulty in breathing. No dysuria or hematuria. He denied having any headaches, blurring of vision or neck pain. In the ED patient's vitals at the time of admission temperature 98, heart rate 110, respiratory 16, blood pressure 74/49 saturating at 96% on room air. Patient had a CAT scan of the abdomen and pelvis showing small bowel obstruction appearance similar to 09/21/2020 with dilated loops of small bowel leading to cluster of dilated small bowel loops in the right hemiabdomen measuring up to 4.5 cm in diameter. There is mild progressive focal nodule and groundglass appearance in the right lung base could be aspiration if patient is vomiting. On reviewing his labs white count of 9.7, hemoglobin 13.8 and platelets 174. Sodium 139, potassium 4.4, chloride 103, bicarb 6 team, BUN 37, creatinine 2. 12/03/2020 Patient is seen in follow-up this morning and is being closely monitored by surgery along with GI and patient is maintained on nothing by mouth diet except for ice chips and popsicles and has continued NG tube placed. Patient denies any passing of gas or bowel movements but did have positive bowel sounds this morning. Patient is also continued on normal saline along with home medications. Patient continues on sliding scale as well as he is on IV steroids and will continue to monitor Accu-Cheks before meals and at bedtime. Patient denies any nausea or vomiting. Abdomen is mildly distended but soft with no guarding or rigidity noted. White blood count is 9.5, hemoglobin is 13.1, sodium is 139 with a potassium of 4.8 current BUN is 63 and creatinine is 2.6. 12/04/2020 Patient is seen and evaluated in follow-up this morning and is being closely monitored for small bowel obstruction. Patient did have an NG tube which was accidentally removed again during position changes and had minimal output noted and okay to keep out per surgery and will need to replace his abdomen continues to be more distended with increasing nausea and vomiting and abdominal pain. Patient reports that he has continued abdominal discomfort but denies any nausea or vomiting. Patient is not passing gas or has had any bowel movements. Bowel sounds noted on exam. Nephrology was consulted for worsening creatinine and repeat creatinine today is 1.53 with a BUN of 76, sodium is 139 with a potassium of 5.4. CRP is 4.9. Patient is receiving sodium bicarb IV push today. 12/05/2020 Patient is seen in follow-up this morning continues to have no gas noted in no reports of bowel movement. Patient continues with abdominal tenderness. Patient is urinating with no difficulties. Patient continues with no NG tube patient denies any further abdominal distention noted. Sodium today is elevated at 146 with a potassium of 4.7 current creatinine is 1.2. Magnesium is 2.0. Patient was maintained on IV normal saline and being transitioned to half-normal saline and will repeat labs. Surgery also following and patient will be starting TPN and will be receiving a PICC line. Patient states he was having some mild shortness of breath in the middle of the night and will obtain chest x-ray. Patient is maintained on breathing inhalational treatments along with IV steroids and will continue. Review of systems: Constitutional: No reports of fatigue, fever, or chills Cardiovascular: No reports of chest pain or palpitations Respiratory: Reported some intermittent shortness in the middle of the night with no further reports of shortness of breath today GI: No reports of nausea, vomiting, or diarrhea, reports gurgling heard in his stomach with no reports of passing gas or bowel movement : No reports of dysuria or retention Neurovascular: No reports of weakness or numbness All medications have been reviewed Active Medications Albuterol Sulfate (Albuterol Nebulized 2.5 Mg/3 Ml) 2.5 mg INHALATION RT-Q4H PRN PRN Reason: Shortness Of Breath Last Admin: 12/03/20 08:05 Dose: 2.5 mg Documented by: Albuterol/Ipratropium (Ipratropium-Albuterol 3 Ml Neb) 3 ml INHALATION RT-TID [facility] Last Admin: 12/05/20 07:25 Dose: 3 ml Documented by: Atorvastatin Calcium (Atorvastatin 20 Mg Tab) 20 mg PO DAILY [facility] Last Admin: 12/05/20 08:12 Dose: 20 mg Documented by: Baclofen (Baclofen 10 Mg Tab) 20 mg PO BID [facility] Last Admin: 12/05/20 08:12 Dose: 20 mg Documented by: Budesonide/Formoterol Fumarate (Symbicort 160-4.5 Mcg Inhaler) 2 puff INHALATION RT-BID [facility] Last Admin: 12/05/20 07:25 Dose: 2 puff Documented by: Heparin Sodium (Porcine) (Heparin Sodium,Porcine/Pf 5,000 Unit/0.5 Ml Syringe) 5,000 unit SQ Q12HR [facility] Last Admin: 12/05/20 08:12 Dose: 5,000 unit Documented by: Hydromorphone HCl (Hydromorphone 1 Mg/Ml 1 Ml Syringe) 1 mg IVP Q3HR PRN PRN Reason: Severe Pain Last Admin: 12/05/20 12:58 Dose: 1 mg Documented by: Sodium Chloride (Saline 0.45%) 1,000 mls @ 75 mls/hr IV .[id number] [facility] Last Admin: 12/05/20 11:26 Dose: 75 mls/hr Documented by: Insulin Aspart (Insulin Aspart (Novolog) 100 Unit/Ml Vial) 0 unit SQ ACHS [facility]; Protocol Last Admin: 12/05/20 12:58 Dose: 2 unit Documented by: Levetiracetam (Levetiracetam 500 Mg Tab) 1,000 mg PO HS [facility] Last Admin: 12/04/20 21:02 Dose: 1,000 mg Documented by: Levetiracetam (Levetiracetam 500 Mg Tab) 500 mg PO DAILY [facility] Last Admin: 12/05/20 08:13 Dose: 500 mg Documented by: Methylprednisolone Sodium Succinate (Methylprednisolone Sod Succi 40 Mg/Ml 1 Ml Vial) 20 mg IV Q8HR [facility] Last Admin: 12/05/20 08:13 Dose: 20 mg Documented by: Naloxone HCl (Naloxone 0.4 Mg/Ml 1 Ml Vial) 0.2 mg IV Q2M PRN PRN Reason: Opioid Reversal Nortriptyline HCl (Nortriptyline 10 Mg Cap) 10 mg PO BID [facility] Last Admin: 12/05/20 08:12 Dose: 10 mg Documented by: Pantoprazole Sodium (Pantoprazole 40 Mg Tablet) 40 mg PO AC-BRKFST [facility] Last Admin: 12/05/20 08:13 Dose: 40 mg Documented by: Prochlorperazine Edisylate (Prochlorperazine Inj 10 Mg/2 Ml Vial) 10 mg IVP Q6HR PRN PRN Reason: Nausea And Vomiting Objective - Vital Signs Vital signs: Vital Signs Temp 97.0 F L 12/05/20 04:49 Pulse 82 12/05/20 07:35 Resp 16 12/05/20 07:35 BP 138/81 12/05/20 04:49 Pulse Ox 97 12/05/20 04:49 Intake & Output 12/04/20 12/05/20 12/05/20 18:59 06:59 18:59 Intake Total 900 0 Balance 900 0 Intake: Intake, IV Titration 900 Amount Sodium Chloride 0.9% 1, 900 000 ml @ 75 mls/hr IV . [id number] [facility] Rx#:[id number] Oral 0 Other: Voiding Method Toilet # Voids 1 - Exam GENERAL: Currently walking the halls, appears to be no acute distress. Alert and oriented 2-3. HEENT: Pupils are round and equally reacting to light. EOMI. No scleral icterus. No conjunctival pallor. CARDIOVASCULAR: S1 and S2 present. No murmurs, rubs, or gallops. PULMONARY: Bilateral breath sounds diminished with some scattered rhonchi in the lung bases. No wheeze or crackles.. ABDOMEN: Mildly distended, Hypoactive bowel sounds MUSCULOSKELETAL: No joint swelling or deformity. EXTREMITIES: No edema NEUROLOGICAL: Gross neurological examination did not reveal any focal deficits. SKIN:No rash - Labs CBC & Chem 7: 12/03/20 05:26 12/05/20 05:09 Labs: Abnormal Lab Results - Last 24 Hours (Table) 12/04/20 12/04/20 12/04/20 Range/Units 05:34 12:22 17:24 Sodium (135-145) mmol/L Potassium 5.4 H (3.5-5.1) mmol/L Chloride 109 H (98-107) mmol/L Carbon Dioxide 17 L (22-30) mmol/L Anion Gap (4.00-12.00) mmol/L BUN 76 H (9-20) mg/dL Creatinine 1.53 H (0.66-1.25) mg/dL BUN/Creatinine Ratio (12.00-20.00) Ratio Glucose 299 H (74-99) mg/dL POC Glucose (mg/dL) 199 H 181 H (75-99) mg/dL Calcium (8.7-10.3) mg/dL C-Reactive Protein 4.9 H (<1.0) mg/dL 12/04/20 12/05/20 12/05/20 Range/Units 20:43 05:09 07:49 Sodium 146 H (135-145) mmol/L Potassium (3.5-5.1) mmol/L Chloride (98-107) mmol/L Carbon Dioxide (22-30) mmol/L Anion Gap 13.50 H (4.00-12.00) mmol/L BUN 65.0 H (9-20) mg/dL Creatinine (0.66-1.25) mg/dL BUN/Creatinine Ratio 54.17 H (12.00-20.00) Ratio Glucose 201 H (74-99) mg/dL POC Glucose (mg/dL) 186 H 213 H (75-99) mg/dL Calcium 8.4 L (8.7-10.3) mg/dL C-Reactive Protein (<1.0) mg/dL Assessment and Plan Assessment: Small bowel obstruction secondary to Crohn's disease Acute Crohn's exacerbation Acute kidney injury most likely prerenal azotemia secondary to hypovolemia and vomiting History of 5 bowel resections Asthma CVA/TIA Diabetes mellitus History of provoked right arm DVT Multiple joint osteoarthritis GERD History of nephrolithiasis History of prostate surgery History of cholecystectomy Former smoker GI prophylaxis DVT prophylaxis Full code PLAN: Patient is nothing by mouth except ice chips and popsicles and surgery discussing TPN. Sodium elevated today and being transitioned to half-normal saline with nephrology following closely. Patient was having some shortness of breath throughout the night and chest x-ray shows continued blunting of the lateral right costophrenic angle suggesting pleural parenchymal scarring with minimal opacification peripheral left base that could represent atelectasis or early infiltrate although the former is favored. Patient is on room air and continued on breathing inhalational treatments and inhalers and will continue. Patient also continues on IV steroids with GI following closely for Crohn's exacerbation. Surgery following as well recommending conservative management for now. TPN is being planned and patient will need PICC line. Patient continu es with abdominal discomfort but denies any nausea or vomiting and continues to have no gas or bowel movements noted as of yet today. Encouraged increase activity as tolerated and patient has been up and walking the halls frequently today. Will also add incentive spirometer and encourage the patient to use at least 10 times every hour while awake. Will repeat a.m. labs and continue to monitor closely. Further recommendations to follow depending on the progress of the patient. Prognosis is guarded.
[2020-12-05] MEDS ORDERED: LIDOCAINE 1% INJ 10MG/ML (20 ML MDV) SQ ONE (14:17)
--- NOTE | 2020-12-05 14:42 | P.PN ---
Subjective Progress Note Date: 12/05/20 Principal diagnosis: Crohn's disease 65-year-old male who presented to the emergency department 2 days ago with complaints of abdominal pain associated with nausea and vomiting. Patient has significant history of Crohn's disease affecting the small large bowel requiring prior surgical resection. He was recently started on Cymzia in October of this year as treatment 11/15/2020 with some improvement in amount of bowel movements. Patient states abdominal pain at the same, he is not having any nausea or vomiting. He is tolerating popsicles and ice chips. No bowel movement, no flatus. Gen. surgery is following patient. He remains on IV Solu-Medrol. He is up ambulating in the hallway. Objective - Vital Signs Vital signs: Vital Signs Temp 97.0 F L 12/05/20 04:49 Pulse 82 12/05/20 07:35 Resp 16 12/05/20 07:35 BP 138/81 12/05/20 04:49 Pulse Ox 97 12/05/20 04:49 Intake & Output 12/04/20 12/05/20 12/05/20 18:59 06:59 18:59 Intake Total 900 0 Balance 900 0 Intake: Intake, IV Titration 900 Amount Sodium Chloride 0.9% 1, 900 000 ml @ 75 mls/hr IV . [id number] [facility] Rx#:[id number] Oral 0 Other: Voiding Method Toilet # Voids 1 1 - Exam General appearance: The patient is alert, oriented, appears in no acute distress. HET: Head is normocephalic and atraumatic. Conjunctiva pink. Sclera anicteric. Neck: Supple without lymphadenopathy. Abdomen: Soft, mild tenderness, incisional scar mid abdomen, mild distention with bowel sounds. No guarding or rigidity. Extremities: Normal skin color and turgor. No pedal edema Skin: No rashes, no jaundice Neurological: No focal deficits. Alert and oriented 3. - Labs CBC & Chem 7: 12/03/20 05:26 12/05/20 05:09 Labs: Abnormal Lab Results - Last 24 Hours (Table) 12/04/20 12/04/20 12/04/20 Range/Units 05:34 12:22 17:24 Sodium (135-145) mmol/L Potassium 5.4 H (3.5-5.1) mmol/L Chloride 109 H (98-107) mmol/L Carbon Dioxide 17 L (22-30) mmol/L Anion Gap (4.00-12.00) mmol/L BUN 76 H (9-20) mg/dL Creatinine 1.53 H (0.66-1.25) mg/dL BUN/Creatinine Ratio (12.00-20.00) Ratio Glucose 299 H (74-99) mg/dL POC Glucose (mg/dL) 199 H 181 H (75-99) mg/dL Calcium (8.7-10.3) mg/dL C-Reactive Protein 4.9 H (<1.0) mg/dL 12/04/20 12/05/20 12/05/20 Range/Units 20:43 05:09 07:49 Sodium 146 H (135-145) mmol/L Potassium (3.5-5.1) mmol/L Chloride (98-107) mmol/L Carbon Dioxide (22-30) mmol/L Anion Gap 13.50 H (4.00-12.00) mmol/L BUN 65.0 H (9-20) mg/dL Creatinine (0.66-1.25) mg/dL BUN/Creatinine Ratio 54.17 H (12.00-20.00) Ratio Glucose 201 H (74-99) mg/dL POC Glucose (mg/dL) 186 H 213 H (75-99) mg/dL Calcium 8.4 L (8.7-10.3) mg/dL C-Reactive Protein (<1.0) mg/dL Assessment and Plan (1) Crohn's disease Narrative/Plan: 65-year-old male with a long-standing history of Crohn's disease who has und ergone 5 previous bowel surgeries done at [facility] last one in January 2015. Patient was recently started onCymzia in October of this year, last dose November 15. Patient presented to the emergency department with complaints of abdominal pain associated with nausea and vomiting, which he describes similar to his previous small bowel obstructions. Patient also reports no bowel movement since Wednesday, normal for him would be to 4 loose bowel movements today. He states no coffee-ground or hematemesis. He states he has had some improvement in his bowel movement since starting the Cymzia he he went from 8 to 4 bowel movements daily. He was recently admitted in September of this year for Crohn's exacerbation and at that time his CT of the abdomen and pelvis is similar to findings from today showing small bowel obstruction similar to that of 09/21/2020 with dilated loops of small bowel leading to a cluster of dilated small bowel loops in the right hemiabdomen, which measures up to 4.5 cm in diameter. Close loop obstruction is not entirely excluded and recommend appropriate clinical laboratory correlation. NG tube is currently in place. Sed rate and CRP ordered, will start patient on high-dose steroids. Gen. surgery is on consult for small bowel obstruction. Patient symptoms improving, continue IV Solu-Medrol 20 mg every 8 hours Current Visit: No Status: Acute Code(s): K50.90 - CROHN'S DISEASE, UNSPE CIFIED, WITHOUT COMPLICATIONS SNOMED Code(s): 97881446 (2) Abdominal pain Current Visit: Yes Status: Acute Code(s): R10.9 - UNSPECIFIED ABDOMINAL PAIN SNOMED Code(s): 08095529 (3) Small bowel obstruction Narrative/Plan: Gen. surgery following closely Current Visit: Yes Status: Acute Code(s): K56.609 - UNSP INTESTNL OBST, UNSP TO PARTIAL VERSUS COMPLETE OBST SNOMED Code(s): 445999713 Plan: 1. Continue symptomatic and supportive care 2. Pain medications as needed 3. Antiemetics as needed 4. Diet per surgical recommendations, Continue with ice chips and popsicle 5. Continue Solu-Medrol 20 mg IV every 8 hours 6. Gen. surgery on consult, following patient closely and continuing with conservative management 7. Agree with PICC line and TPN Thank you for this consultation, we will continue to follow closely. Dr. Radha Wade I agree with the dictator's note, documented as a scribe by Colleen Urrutia.
--- NOTE | 2020-12-05 14:56 | IR ---
EXAMINATION TYPE: IR cvc insert >=5 years DATE OF EXAM: 12/05/2020 COMPARISON: NONE CLINICAL HISTORY: Small bowel obstruction Needs long-term intravenous access for total parenteral nut rition. PROCEDURE: Hand hygiene obtained with soap and water and alcohol-based hand rub. After informed consent, the skin overlying the left brachial vein was localized with ultrasound and n oted to be compressible and patent. An ultrasound image was obtained and submitted on the patient's chart. The overlying skin was prepped and draped and Lidocaine was used for local anesthesia. A ski n cony was made with a scalpel. Access was gained to the vein under ultrasound guidance with a 21 ga uge needle and a 0.018 inch wire was advanced. Access site was dilated with Peel-Away sheath and cat heter tailored to the appropriate length and advanced such that the distal tip is at the cavoatrial j unction. Spot image was obtained verifying placement. Catheter was fixed to the skin and a sterile dressing was placed following hemostasis. Catheter was aspirated and flushed with saline. Patient w as discharged in stable condition without complication.Maximal barrier technique is utilized. Ultras ound image is documented on the chart. Ultrasound used with sterile technique. Fluoro time and fluoroscopic images submitted to document procedure: 43 intraoperative C-arm images, 0.1 minutes fluoroscopy time IMPRESSION: STATUS POST ULTRASOUND AND FLUOROSCOPIC GUIDED PICC LINE PLACEMENT, READY FOR USE. THIS PROCEDURE WAS PERFORMED BY THE UNDERSIGNED.
[2020-12-05 17:25] LABS: Glucose,Whole Blood 178 mg/dL (75-99)
[2020-12-05] MEDS ORDERED: CALCIUM GLUCONATE 1 GM in SODIUM CHLORIDE 0.9% 100 ML IVPB ONE (18:00)
[2020-12-05] MEDS ORDERED: MVI, ADULT NO.4 WITH VIT K 10 ML, TRACE (CONC-1ML/DOSE) 1 ML in AMINO ACID 5%-D15W+LYTE... IV SCH ×3 (19:00)
[2020-12-05 22:03] LABS: Glucose,Whole Blood 182 mg/dL (75-99)
[2020-12-06] MEDS: SODIUM CHLORIDE 0.45% 1,000 ML IV SCH ×2 (03:48→23:13)
[2020-12-06] MEDS: HYDROmorphone 1 MG/ML 1 ML SYRINGE IVP PRN ×5 (04:42→23:44)
[2020-12-06 05:56] LABS: Ionized Calcium 4.9 mg/dL (4.5-5.3)
[2020-12-06 06:18] LABS: African American GFR (CKD) >90 (>60 ml/min/1.73 sqM); Anion Gap 8 mmol/L; Blood Urea Nitrogen 44 mg/dL (9-20); Calcium 8.7 mg/dL (8.4-10.2); Carbon Dioxide 22 mmol/L (22-30); Chloride 113 mmol/L (98-107); Glucose 276 mg/dL (74-99); Magnesium 2.1 mg/dL (1.6-2.3); Non-African American GFR(CKD) 90 (>60 ml/min/1.73 sqM); Phosphorus 2.9 mg/dL (2.5-4.5); Potassium 4.9 mmol/L (3.5-5.1); Sodium 143 mmol/L (137-145)
[2020-12-06 07:30] LABS: Glucose,Whole Blood 225 mg/dL (75-99)
[2020-12-06] MEDS: PANTOPRAZOLE 40 MG TABLET PO SCH (07:47)
[2020-12-06] MEDS: INSULIN ASPART (NovoLOG) 100 UNIT/ML VIAL SQ SCH ×3 (07:47→18:22)
[2020-12-06] MEDS: methylPREDNISolone SOD SUCCI 40 MG/ML 1 ML VIAL IV SCH ×3 (07:48→23:56)
[2020-12-06] MEDS: BACLOFEN 10 MG TAB PO SCH ×2 (07:51→20:13)
[2020-12-06] MEDS: ATORVASTATIN 20 MG TAB PO SCH (07:51)
[2020-12-06] MEDS: HEPARIN SODIUM,PORCINE/PF 5,000 UNIT/0.5 ML SYRINGE SQ SCH ×2 (07:51→20:14)
[2020-12-06] MEDS: NORTRIPTYLINE 10 MG CAP PO SCH ×2 (07:52→20:12)
[2020-12-06] MEDS: levETIRAcetam 500 MG TAB PO SCH ×2 (07:52→20:13)
[2020-12-06] MEDS: SYMBICORT 160-4.5 MCG INHALER INHALATION SCH ×2 (08:00→20:50)
[2020-12-06] MEDS: IPRATROPIUM-ALBUTEROL 3 ML NEB INHALATION SCH ×3 (08:00→20:50)
[2020-12-06] MEDS ORDERED: FAT EMULSION 20% 500 ML in EMPTY BAG 1 BAG IV SCH (09:00)
--- NOTE | 2020-12-06 09:53 | P.PN ---
Subjective Patient is seen in follow-up for acute kidney injury. Renal function continues to improve with IV fluids. Receiving TPN. No vomiting or diarrhea. Good urine output. Vital signs are stable. General: The patient appeared well nourished and normally developed. HEENT: Head exam is unremarkable. Neck is without jugular venous distension. LUNGS: Breath sounds decreased. HEART: Rate and Rhythm are regular. ABDOMEN: Soft, no tenderness. EXTREMITITES: No edema. Objective - Vital Signs Vital signs: Vital Signs Temp 97.8 F 12/06/20 04:59 Pulse 88 12/06/20 08:10 Resp 18 12/06/20 04:59 BP 145/75 12/06/20 04:59 Pulse Ox 99 12/06/20 04:59 Intake & Output 12/05/20 12/06/20 12/06/20 18:59 06:59 18:59 Intake Total 450 Balance 450 Weight 88.451 kg Intake: Intake, IV Titration 450 Amount Sodium Chloride 0.45% 1, 450 000 ml @ 75 mls/hr IV . [id number] [facility] Rx#:[id number] Other: Voiding Method Toilet # Voids 1 2 - Labs CBC & Chem 7: 12/03/20 05:26 12/06/20 04:58 Labs: Abnormal Lab Results - Last 24 Hours (Table) 12/05/20 12/05/20 12/05/20 Range/Units 05:09 11:25 12:35 Sodium 146 H (135-145) mmol/L Chloride (98-107) mmol/L Anion Gap 13.50 H (4.00-12.00) mmol/L BUN 65.0 H (9.0-27.0) mg/dL BUN/Creatinine Ratio 54.17 H (12.00-20.00) Ratio Glucose 201 H (70-110) mg/dL POC Glucose (mg/dL) 154 H (75-99) mg/dL Calcium 8.4 L (8.7-10.3) mg/dL Triglycerides (0.0-149.0) mg/dL Urine Protein Trace H (Negative) Urine Blood Large H (Negative) Ur Leukocyte Esterase Small H (Negative) Urine RBC 134 H (0-5) /hpf Urine WBC 8 H (0-5) /hpf Uric Acid Crystals Occasional H (None) /hpf Urine Mucus Rare H (None) /hpf 08/26/21 08/26/21 08/26/21 Range/Units 15:56 17:22 21:35 Sodium (135-145) mmol/L Chloride (98-107) mmol/L Anion Gap (4.00-12.00) mmol/L BUN (9.0-27.0) mg/dL BUN/Creatinine Ratio (12.00-20.00) Ratio Glucose (70-110) mg/dL POC Glucose (mg/dL) 178 H 182 H (75-99) mg/dL Calcium (8.7-10.3) mg/dL Triglycerides 232.0 H (0.0-149.0) mg/dL Urine Protein (Negative) Urine Blood (Negative) Ur Leukocyte Esterase (Negative) Urine RBC (0-5) /hpf Urine WBC (0-5) /hpf Uric Acid Crystals (None) /hpf Urine Mucus (None) /hpf 12/06/20 12/06/20 Range/Units 04:58 07:25 Sodium (135-145) mmol/L Chloride 113 H (98-107) mmol/L Anion Gap (4.00-12.00) mmol/L BUN 44 H (9.0-27.0) mg/dL BUN/Creatinine Ratio (12.00-20.00) Ratio Glucose 276 H (70-110) mg/dL POC Glucose (mg/dL) 225 H (75-99) mg/dL Calcium (8.7-10.3) mg/dL Triglycerides (0.0-149.0) mg/dL Urine Protein (Negative) Urine Blood (Negative) Ur Leukocyte Esterase (Negative) Urine RBC (0-5) /hpf Urine WBC (0-5) /hpf Uric Acid Crystals (None) /hpf Urine Mucus (None) /hpf Assessment and Plan Plan: Assessment: 1. Acute kidney injury mostly prerenal secondary to hypovolemia and hypotension. Baseline creatinine is near 1 and peaked at 2.6 this admission - 0.88 today. Kidneys are normal in size without any evidence of hydronephrosis. 2. History of Crohn's disease status post multiple bowel resections. 3. Small bowel obstruction. Surgery following. 4. Rule out chronic kidney disease. He does have proteinuria on UA which is most likely secondary to underlying diabetic kidney disease. Further workup outpatient. 5. Metabolic acidosis secondary to acute kidney injury and IV fluids. Improved. 6. Mild hyperkalemia secondary to hyperglycemia and metabolic acidosis. Improved. 7. Diabetes mellitus. 8. Mild hypernatremia from lack of oral water intake. Improved. Plan: Decrease rate of IV fluids to 50 mL an hour. TPN/lipids per surgery recommendations. Avoid nephrotoxins. Continue to monitor renal function and urine output. Quantify proteinuria. Check serologies due to hematuria.
--- NOTE | 2020-12-06 11:40 | P.PN ---
Subjective Progress Note Date: 12/06/20 CHIEF COMPLAINT: Abdominal pain HISTORY OF PRESENT ILLNESS: Patient followed for small bowel obstruction. Patient did have a bowel movement this morning. He reports a decrease in his abdominal pain. He is feeling better each day. He denies any nausea or vomiting. He has been started on TPN for nutrition support. Afebrile. Sodium 143 potassium 4.9 creatinine 0.88 glucose 225 PHYSICAL EXAM: VITAL SIGNS: Reviewed. GENERAL: Well-developed in no acute distress. HEENT: No sclera icterus. Extraocular movements grossly intact. Moist buccal mucosa. Head is atraumatic, normocephalic. ABDOMEN: Soft. Nondistended. Mild tenderness with palpation of the right side NEUROLOGIC: Alert and oriented. Cranial nerves II through XII grossly intact. ASSESSMENT: 1. Small bowel obstruction likely secondary to Crohn's showing improvement with conservative management 2. Crohn's exacerbation 3. History of multiple bowel resections due to bowel obstructions from his Crohn's PLAN: -Continue conservative management. Would try to avoid surgery if at all possible given the concern that patient may develop short bowel syndrome with any further surgical intervention -Advance diet to full liquids -Continue TPN for now until oral intake increases -Continue treatment for Crohn's exacerbation per GI service -Continue pain medication as needed -Encourage patient to ambulate Physician Dementia Program Director note has been reviewed by physician. Signing provider agrees with the documented findings, assessment, and plan of care. Objective - Vital Signs Vital signs: Vital Signs Temp 98.3 F 12/06/20 11:19 Pulse 80 12/06/20 11:19 Resp 18 12/06/20 11:19 BP 143/67 12/06/20 11:19 Pulse Ox 96 12/06/20 11:19 Intake & Output 12/05/20 12/06/20 12/06/20 18:59 06:59 18:59 Intake Total 450 Balance 450 Weight 88.451 kg Intake: Intake, IV Titration 450 Amount Sodium Chloride 0.45% 1, 450 000 ml @ 75 mls/hr IV . [id number] [facility] Rx#:[id number] Other: Voiding Method Toilet # Voids 1 2 - Labs CBC & Chem 7: 12/03/20 05:26 12/06/20 04:58 Labs: Abnormal Lab Results - Last 24 Hours (Table) 12/05/20 12/05/20 12/05/20 Range/Units 11:25 12:35 15:56 Chloride (98-107) mmol/L BUN (9-20) mg/dL Glucose (74-99) mg/dL POC Glucose (mg/dL) 154 H (75-99) mg/dL Triglycerides 232.0 H (0.0-149.0) mg/dL Urine Protein Trace H (Negative) Urine Blood Large H (Negative) Ur Leukocyte Esterase Small H (Negative) Urine RBC 134 H (0-5) /hpf Urine WBC 8 H (0-5) /hpf Uric Acid Crystals Occasional H (None) /hpf Urine Mucus Rare H (None) /hpf 12/05/20 12/05/20 12/06/20 Range/Units 17:22 21:35 04:58 Chloride 113 H (98-107) mmol/L BUN 44 H (9-20) mg/dL Glucose 276 H (74-99) mg/dL POC Glucose (mg/dL) 178 H 182 H (75-99) mg/dL Triglycerides (0.0-149.0) mg/dL Urine Protein (Negative) Urine Blood (Negative) Ur Leukocyte Esterase (Negative) Urine RBC (0-5) /hpf Urine WBC (0-5) /hpf Uric Acid Crystals (None) /hpf Urine Mucus (None) /hpf 12/06/20 Range/Units 07:25 Chloride (98-107) mmol/L BUN (9-20) mg/dL Glucose (74-99) mg/dL POC Glucose (mg/dL) 225 H (75-99) mg/dL Triglycerides (0.0-149.0) mg/dL Urine Protein (Negative) Urine Blood (Negative) Ur Leukocyte Esterase (Negative) Urine RBC (0-5) /hpf Urine WBC (0-5) /hpf Uric Acid Crystals (None) /hpf Urine Mucus (None) /hpf
[2020-12-06 11:43] LABS: Glucose,Whole Blood 174 mg/dL (75-99)
--- NOTE | 2020-12-06 15:33 | P.PN ---
Subjective Progress Note Date: 12/06/20 Mr. Hickey is a 65-year-old male with a past medical history of CVA/TIA, asthma, diabetes mellitus, DVT, GERD, osteoarthritis, nephrolithiasis, Crohn's disease, right arm DVT, coming in the hospital with a chief complaint of abdominal pain for the past 2 to 3 days. Patient has Crohn's disease with 5 bowel resections done at [facility] in the past. He also has multiple histories of similar admissions in the past for exacerbation of Crohn's disease. Patient complains of pain in his epigastric abdominal area associated with nausea and vomiting, that he is not able to keep his solids or fluids down. Patient denied having any fevers chills or rigors. He denied having any diarrhea. Patient denied having any chest pain or palpitations. No cough or difficulty in breathing. No dysuria or hematuria. He denied having any headaches, blurring of vision or neck pain. In the ED patient's vitals at the time of admission temperature 98, heart rate 110, respiratory 16, blood pressure 74/49 saturating at 96% on room air. Patient had a CAT scan of the abdomen and pelvis showing small bowel obstruction appearance similar to 09/21/2020 with dilated loops of small bowel leading to cluster of dilated small bowel loops in the right hemiabdomen measuring up to 4.5 cm in diameter. There is mild progressive focal nodule and groundglass appearance in the right lung base could be aspiration if patient is vomiting. On reviewing his labs white count of 9.7, hemoglobin 13.8 and platelets 174. Sodium 139, potassium 4.4, chloride 103, bicarb 6 team, BUN 37, creatinine 2. 12/03/2020 Patient is seen in follow-up this morning and is being closely monitored by surgery along with GI and patient is maintained on nothing by mouth diet except for ice chips and popsicles and has continued NG tube placed. Patient denies any passing of gas or bowel movements but did have positive bowel sounds this morning. Patient is also continued on normal saline along with home medications. Patient continues on sliding scale as well as he is on IV steroids and will continue to monitor Accu-Cheks before meals and at bedtime. Patient denies any nausea or vomiting. Abdomen is mildly distended but soft with no guarding or rigidity noted. White blood count is 9.5, hemoglobin is 13.1, sodium is 139 with a potassium of 4.8 current BUN is 63 and creatinine is 2.6. 12/04/2020 Patient is seen and evaluated in follow-up this morning and is being closely monitored for small bowel obstruction. Patient did have an NG tube which was accidentally removed again during position changes and had minimal output noted and okay to keep out per surgery and will need to replace his abdomen continues to be more distended with increasing nausea and vomiting and abdominal pain. Patient reports that he has continued abdominal discomfort but denies any nausea or vomiting. Patient is not passing gas or has had any bowel movements. Bowel sounds noted on exam. Nephrology was consulted for worsening creatinine and repeat creatinine today is 1.53 with a BUN of 76, sodium is 139 with a potassium of 5.4. CRP is 4.9. Patient is receiving sodium bicarb IV push today. 12/05/2020 Patient is seen in follow-up this morning continues to have no gas noted in no reports of bowel movement. Patient continues with abdominal tenderness. Patient is urinating with no difficulties. Patient continues with no NG tube patient denies any further abdominal distention noted. Sodium today is elevated at 146 with a potassium of 4.7 current creatinine is 1.2. Magnesium is 2.0. Patient was maintained on IV normal saline and being transitioned to half-normal saline and will repeat labs. Surgery also following and patient will be starting TPN and will be receiving a PICC line. Patient states he was having some mild shortness of breath in the middle of the night and will obtain chest x-ray. Patient is maintained on breathing inhalational treatments along with IV steroids and will continue. 12/06/2020 Patient is seen and evaluated in follow-up this morning and reports passing gas and did have a bowel movement today. Patient was started on TPN and did receive a PICC line. Nephrology along with surgery following closely. Surgery recommends continuing with TPN and continue to monitor bowel function. Encouraged increased activity as tolerated and patient has been walking multiple times throughout the day. Sodium improved today at 143 with a potassium of 4.9 current creatinine is 0.88 and magnesium is 2.1. Blood Sugars slightly elevated and will continue with Accu-Cheks every 6 and sliding scale and will add low- dose long-acting at night and monitor closely. Vital signs have been stable and patient is afebrile. Patient denies any chest pain or increasing shortness of breath. Review of systems: Constitutional: No reports of fatigue, fever, or chills Cardiovascular: No reports of chest pain or palpitations Respiratory: Reported some intermittent shortness in the middle of the night wi th no further reports of shortness of breath today GI: No reports of nausea, vomiting, or diarrhea, reports passing gas and had a small bowel movement today : No reports of dysuria or retention Neurovascular: No reports of weakness or numbness All medications have been reviewed Active Medications Albuterol Sulfate (Albuterol Nebulized 2.5 Mg/3 Ml) 2.5 mg INHALATION RT-Q4H PRN PRN Reason: Shortness Of Breath Last Admin: 12/03/20 08:05 Dose: 2.5 mg Documented by: Albuterol/Ipratropium (Ipratropium-Albuterol 3 Ml Neb) 3 ml INHALATION RT-TID [facility] Last Admin: 12/06/20 11:38 Dose: 3 ml Documented by: Atorvastatin Calcium (Atorvastatin 20 Mg Tab) 20 mg PO DAILY [facility] Last Admin: 12/06/20 07:51 Dose: 20 mg Documented by: Baclofen (Baclofen 10 Mg Tab) 20 mg PO BID [facility] Last Admin: 12/06/20 07:51 Dose: 20 mg Documented by: Budesonide/Formoterol Fumarate (Symbicort 160-4.5 Mcg Inhaler) 2 puff INHALATION RT-BID [facility] Last Admin: 12/06/20 08:00 Dose: 2 puff Documented by: Heparin Sodium (Porcine) (Heparin Sodium,Porcine/Pf 5,000 Unit/0.5 Ml Syringe) 5,000 unit SQ Q12HR [facility] Last Admin: 12/06/20 07:51 Dose: 5,000 unit Documented by: Hydromorphone HCl (Hydromorphone 1 Mg/Ml 1 Ml Syringe) 1 mg IVP Q3HR PRN PRN Reason: Severe Pain Last Admin: 12/06/20 08:05 Dose: 1 mg Documented by: Sodium Chloride (Saline 0.45%) 1,000 mls @ 50 mls/hr IV .Q20H [facility] Last Admin: 12/06/20 03:48 Dose: Not Given Documented by: Fat Emulsion Intravenous 500 (ml/ IV Solution) 500 mls @ 21 mls/hr IV TuFr [facility] Last Admin: 12/06/20 07:51 Dose: 21 mls/hr Documented by: Parenteral Vitamin Supplement 10 ml/ Zinc/Copper/Manganese/Selenium 1 ml/ Amino Ac/Electrol/Dextrose/Calcium 1,011 mls @ 30 mls/hr IV .Q24H [facility] Stop: 12/06/20 18:59 Last Admin: 12/05/20 19:24 Dose: 30 mls/hr Documented by: Parenteral Vitamin Supplement 10 ml/ Zinc/Copper/Manganese/Selenium 1 ml/ Amino Ac/Electrol/Dextrose/Calcium 1,011 mls @ 80 mls/hr IV .BY DURATION [facility] Amino Ac/Electrol/Dextrose/Calcium (Clinimix E 5%-D15% Solution) 1,000 mls @ 80 mls/hr IV .BY DURATION [facility] Insulin Aspart (Insulin Aspart (Novolog) 100 Unit/Ml Vial) 0 unit SQ Q6H [facility]; Protocol Last Admin: 12/06/20 12:32 Dose: 4 unit Documented by: Insulin Detemir (Insulin Detemir (Levemir) 100 Unit/Ml Syr) 5 unit SQ [facility] Levetiracetam (Levetiracetam 500 Mg Tab) 1,000 mg PO [facility] Last Admin: 12/05/20 21:36 Dose: 1,000 mg Documented by: Levetiracetam (Levetiracetam 500 Mg Tab) 500 mg PO DAILY [facility] Last Admin: 12/06/20 07:52 Dose: 500 mg Documented by: Methylprednisolone Sodium Succinate (Methylprednisolone Sod Succi 40 Mg/Ml 1 Ml Vial) 20 mg IV Q8HR [facility] Last Admin: 12/06/20 07:48 Dose: 20 mg Documented by: Naloxone HCl (Naloxone 0.4 Mg/Ml 1 Ml Vial) 0.2 mg IV Q2M PRN PRN Reason: Opioid Reversal Nortriptyline HCl (Nortriptyline 10 Mg Cap) 10 mg PO BID [facility] Last Admin: 12/06/20 07:52 Dose: 10 mg Documented by: Pantoprazole Sodium (Pantoprazole 40 Mg Tablet) 40 mg PO AC-BRKFST [facility] Last Admin: 12/06/20 07:47 Dose: 40 mg Documented by: Prochlorperazine Edisylate (Prochlorperazine Inj 10 Mg/2 Ml Vial) 10 mg IVP Q6HR PRN PRN Reason: Nausea And Vomiting Sodium Chloride (Sodium Chloride 0.9% Flush 10 Ml Syringe) 10 ml IV Q4HR PRN PRN Reason: PICC Line Sodium Chloride (Sodium Chloride 0.9% Flush 10 Ml Syringe) 10 ml IV WEEKLY [facility] Sodium Chloride (Sodium Chloride 0.9% Flush 10 Ml Syringe) 20 ml IV Q4HR PRN PRN Reason: PICC Line Objective - Vital Signs Vital signs: Vital Signs Temp 97.8 F 12/06/20 04:59 Pulse 88 12/06/20 08:10 Resp 18 12/06/20 04:59 BP 145/75 12/06/20 04:59 Pulse Ox 99 12/06/20 04:59 Intake & Output 12/05/20 12/06/20 12/06/20 18:59 06:59 18:59 Intake Total 450 Balance 450 Weight 88.451 kg Intake: Intake, IV Titration 450 Amount Sodium Chloride 0.45% 1, 450 000 ml @ 75 mls/hr IV . [id number] [facility] Rx#:[id number] Other: Voiding Method Toilet # Voids 1 2 - Exam GENERAL: Currently walking the halls, appears to be no acute distress. Alert and oriented 2-3. HEENT: Pupils are round and equally reacting to light. EOMI. No scleral icterus. No conjunctival pallor. CARDIOVASCULAR: S1 and S2 present. No murmurs, rubs, or gallops. PULMONARY: Bilateral breath sounds diminished with some scattered rhonchi in the lung bases. No wheeze or crackles.. ABDOMEN: Mildly distended, bowel sounds noted MUSCULOSKELETAL: No joint swelling or deformity. EXTREMITIES: No edema NEUROLOGICAL: Gross neurological examination did not reveal any focal deficits. SKIN:No rash - Labs CBC & Chem 7: 12/03/20 05:26 12/06/20 04:58 Labs: Abnormal Lab Results - Last 24 Hours (Table) 12/05/20 12/05/20 12/05/20 Range/Units 11:25 12:35 15:56 Chloride (98-107) mmol/L BUN (9-20) mg/dL Glucose (74-99) mg/dL POC Glucose (mg/dL) 154 H (75-99) mg/dL Triglycerides 232.0 H (0.0-149.0) mg/dL Urine Protein Trace H (Negative) Urine Blood Large H (Negative) Ur Leukocyte Esterase Small H (Negative) Urine RBC 134 H (0-5) /hpf Urine WBC 8 H (0-5) /hpf Uric Acid Crystals Occasional H (None) /hpf Urine Mucus Rare H (None) /hpf 12/05/20 12/05/20 12/06/20 Range/Units 17:22 21:35 04:58 Chloride 113 H (98-107) mmol/L BUN 44 H (9-20) mg/dL Glucose 276 H (74-99) mg/dL POC Glucose (mg/dL) 178 H 182 H (75-99) mg/dL Triglycerides (0.0-149.0) mg/dL Urine Protein (Negative) Urine Blood (Negative) Ur Leukocyte Esterase (Negative) Urine RBC (0-5) /hpf Urine WBC (0-5) /hpf Uric Acid Crystals (None) /hpf Urine Mucus (None) /hpf 12/06/20 Range/Units 07:25 Chloride (98-107) mmol/L BUN (9-20) mg/dL Glucose (74-99) mg/dL POC Glucose (mg/dL) 225 H (75-99) mg/dL Triglycerides (0.0-149.0) mg/dL Urine Protein (Negative) Urine Blood (Negative) Ur Leukocyte Esterase (Negative) Urine RBC (0-5) /hpf Urine WBC (0-5) /hpf Uric Acid Crystals (None) /hpf Urine Mucus (None) /hpf Assessment and Plan Assessment: Small bowel obstruction secondary to Crohn's disease Acute Crohn's exacerbation Acute kidney injury most likely prerenal azotemia secondary to hypovolemia and vomiting History of 5 bowel resections Asthma CVA/TIA Diabetes mellitus History of provoked right arm DVT Multiple joint osteoarthritis GERD History of nephrolithiasis History of prostate surgery History of cholecystectomy Former smoker GI prophylaxis DVT prophylaxis Full code PLAN: Patient is continued on TPN and is having bowel sounds noted with passing gas and reported bowel movement today. Patient continues without NG tube and surgery recommending advancing diet slowly as tolerated. Patient on full liquid s and will continue TPN for now. Nephrology and GI also following and will repeat abdominal x-ray in the morning. Sodium improved at 143 with a potassium of 4.9 current creatinine is 0.88 and magnesium is 2.1. Patient continues on half normal saline and will continue for now. Pharmacy dosing TPN. Will repeat labs and continue to monitor closely. Encouraged increased activity and patient continues to walk the halls frequently throughout the day. Will continue with breathing inhalational treatments as well. Incentive spirometer encouraged 10 times every hour. Blood sugar slightly elevated and will continue with Accu- Cheks every 6 and sliding scale and will add low-dose long-acting insulin and monitor closely. Further recommendations to follow based on the clinical course of the patient. Prognosis remains guarded.
--- NOTE | 2020-12-06 17:13 | P.PN ---
Subjective Progress Note Date: 12/06/20 Principal diagnosis: Crohn's disease 65-year-old male who presented to the emergency department with complaints of abdominal pain associated with nausea and vomiting. Patient has significant history of Crohn's disease affecting the small large bowel requiring prior surgical resection. CT abdomen and pelvis showed small bowel obstruction. He was recently started on Cymzia in October of this year as treatment 11/15/2020 with some improvement in amount of bowel movements. Patient states pain improving, continues to have no nausea or vomiting. He did have a loose bowel movement this morning. Denies any fever or chills. Denies any blood in his stool. Objective - Vital Signs Vital signs: Vital Signs Temp 97.1 F L 12/06/20 15:58 Pulse 80 12/06/20 15:58 Resp 16 12/06/20 15:58 BP 149/80 12/06/20 15:58 Pulse Ox 99 12/06/20 16:01 Intake & Output 12/05/20 12/06/20 12/06/20 18:59 06:59 18:59 Intake Total 450 Balance 450 Weight 88.451 kg 88.451 kg Intake: Intake, IV Titration 450 Amount Sodium Chloride 0.45% 1, 450 000 ml @ 75 mls/hr IV . [id number] [facility] Rx#:[id number] Other: Voiding Method Toilet # Voids 1 2 - Exam General appearance: The patient is alert, oriented, appears in no acute distress. HET: Head is normocephalic and atraumatic. Conjunctiva pink. Sclera anicteric. Neck: Supple without lymphadenopathy. Abdomen: Soft, mild tenderness, incisional scar mid abdomen, mild distention with bowel sounds. No guarding or rigidity. Extremities: Normal skin color and turgor. No pedal edema Skin: No rashes, no jaundice Neurological: No focal deficits. Alert and oriented 3. - Labs CBC & Chem 7: 12/03/20 05:26 12/06/20 04:58 Labs: Abnormal Lab Results - Last 24 Hours (Table) 12/05/20 12/05/20 12/05/20 Range/Units 15:56 17:22 21:35 Chloride (98-107) mmol/L BUN (9-20) mg/dL Glucose (74-99) mg/dL POC Glucose (mg/dL) 178 H 182 H (75-99) mg/dL Triglycerides 232.0 H (0.0-149.0) mg/dL 12/06/20 12/06/20 12/06/20 Range/Units 04:58 07:25 11:36 Chloride 113 H (98-107) mmol/L BUN 44 H (9-20) mg/dL Glucose 276 H (74-99) mg/dL POC Glucose (mg/dL) 225 H 174 H (75-99) mg/dL Triglycerides (0.0-149.0) mg/dL Assessment and Plan (1) Crohn's disease Narrative/Plan: 65-year-old male with a long-standing history of Crohn's disease who has undergone 5 previous bowel surgeries done at [facility] last one in January 2015. Patient was recently started onCymzia in October of this year, last dose November 15. Patient presented to the emergency department with complaints of abdominal pain associated with nausea and vomiting, which he describes similar to his previous small bowel obstructions. Patient also reports no bowel move ment since Wednesday, normal for him would be to 4 loose bowel movements today. He states no coffee-ground or hematemesis. He states he has had some improvement in his bowel movement since starting the Cymzia he he went from 8 to 4 bowel movements daily. He was recently admitted in September of this year for Crohn's exacerbation and at that time his CT of the abdomen and pelvis is similar to findings from today showing small bowel obstruction similar to that of 09/21/2020 with dilated loops of small bowel leading to a cluster of dilated small bowel loops in the right hemiabdomen, which measures up to 4.5 cm in diameter. Close loop obstruction is not entirely excluded and recommend appropriate clinical laboratory correlation. NG tube is currently in place. Sed rate and CRP ordered, will start patient on high-dose steroids. Gen. surgery is on consult for small bowel obstruction. Patient symptoms improving, continue IV Solu-Medrol 20 mg every 8 hours Current Visit: No Status: Acute Code(s): K50.90 - CROHN'S DISEASE, UNSPECIFIED, WITHOUT COMPLICATIONS SNOMED Code(s): 53920721 (2) Abdominal pain Current Visit: Yes Status: Acute Code(s): R10.9 - UNSPECIFIED ABDOMINAL PAIN SNOMED Code(s): 80906411 (3) Small bowel obstruction Narrative/Plan: Gen. surgery following closely Current Visit: Yes Status: Acute Code(s): K56.609 - UNSP INTESTNL OBST, UNSP TO PARTIAL VERSUS COMPLETE OBST SNOMED Code(s): 633456471 Plan: 1. Continue symptomatic and supportive care 2. Pain medications as needed 3. Antiemetics as needed 4. Diet per surgical recommendations 5. Continue Solu-Medrol 20 mg IV every 8 hours, will transition to oral prednisone tomorrow 6. Gen. surgery on consult, following patient closely and continuing with conservative management 7. Agree with PICC line and TPN 8. Abdominal x-ray ordered for tomorrow Thank you for this consultation, we will continue to follow closely. Dr. Radha Wade I agree with the dictator's note, documented as a scribe by Colleen Urrutia.
[2020-12-06 17:38] LABS: Glucose,Whole Blood 269 mg/dL (75-99)
[2020-12-06 17:59] LABS: Creatinine,Urine Random 55.3 mg/dL; Protein/Creatinine Ratio,Urine 0.235
[2020-12-06] MEDS ORDERED: INSULIN ASPART (NovoLOG) 100 UNIT/ML VIAL SQ ONE (18:07)
[2020-12-06] MEDS: INSULIN DETEMIR (LEVEMIR) 100 UNIT/ML SYR SQ SCH (21:05)
[2020-12-06 21:33] LABS: Anti-DNA, DS unit <1.0 IU/mL; DNA Double-Stranded NEGATIVE (NEGATIVE)
[2020-12-06] MEDS: 1: MVI, ADULT NO.4 WITH VIT K 10 ML, TRACE (CONC-1ML/DOSE) 1 ML in AMINO ACID 5%-D15W+LY IV SCH ×3 (23:10)
[2020-12-07] MEDS: INSULIN ASPART (NovoLOG) 100 UNIT/ML VIAL SQ SCH ×4 (00:01→18:24)
[2020-12-07 00:13] LABS: Glucose,Whole Blood 338 mg/dL (75-99)
[2020-12-07] MEDS ORDERED: INSULIN ASPART (NovoLOG) 100 UNIT/ML VIAL SQ ONE ×2 (00:26→18:20)
[2020-12-07] MEDS ORDERED: INSULIN DETEMIR (LEVEMIR) 100 UNIT/ML SYR SQ ONE (00:30)
[2020-12-07] MEDS: HYDROmorphone 1 MG/ML 1 ML SYRINGE IVP PRN ×4 (04:20→21:12)
[2020-12-07 06:35] LABS: Glucose,Whole Blood 227 mg/dL (75-99)
[2020-12-07] MEDS: SYMBICORT 160-4.5 MCG INHALER INHALATION SCH ×2 (07:20→20:14)
[2020-12-07] MEDS: IPRATROPIUM-ALBUTEROL 3 ML NEB INHALATION SCH ×3 (07:20→20:14)
[2020-12-07] MEDS: PANTOPRAZOLE 40 MG TABLET PO SCH (07:36)
[2020-12-07] MEDS: methylPREDNISolone SOD SUCCI 40 MG/ML 1 ML VIAL IV SCH (07:36)
--- NOTE | 2020-12-07 07:52 | XR ---
KUB HISTORY: Bowel obstruction KUB submitted on 2 images, correlation prior exam abdomen, CT 12/01/2020 The calcification seen at the level of the lower pole the right kidney is again noted. There are phle boliths within the pelvis, prostate calcifications. Postop change noted at the lumbosacral junction. Gas-filled loops of bowel are again noted. Surgical clips present right upper quadrant. Probable basi lar atelectatic changes noted at the lung bases. Suture material noted in the left hemiabdomen within the bowel. NG tube has been removed. IMPRESSION: Some prominent bowel loops again noted within the left hemidiaphragm abdomen, correlate f or obstruction, ileus. Follow-up as indicated. Right-sided nephrolithiasis.
--- NOTE | 2020-12-07 08:59 | P.PN ---
Subjective Patient is seen in follow-up for acute kidney injury. Renal function improved with IV fluids. Receiving TPN. Now on full liquid diet. No vomiting or diarrhea. Good urine output. Vital signs are stable. General: The patient appeared well nourished and normally developed. HEENT: Head exam is unremarkable. Neck is without jugular venous distension. LUNGS: Breath sounds decreased. HEART: Rate and Rhythm are regular. ABDOMEN: Soft, no tenderness. EXTREMITITES: No edema. Objective - Vital Signs Vital signs: Vital Signs Temp 97.6 F 12/07/20 04:36 Pulse 59 L 12/07/20 07:34 Resp 18 12/07/20 04:36 BP 141/48 12/07/20 04:36 Pulse Ox 98 12/07/20 04:36 Intake & Output 12/06/20 12/07/20 12/07/20 18:59 06:59 18:59 Intake Total 1049 1362 Balance 1049 1362 Weight 88.451 kg Intake: Intake, IV Titration 1049 1362 Amount Fat Emulsion 20% 500 ml 189 252 In Empty Bag 1 bag @ 21 mls/hr IV TuFr [facility] Rx#: [id number] Mvi, Adult No.4 with Vit 360 150 K 10 ml Trace (Conc-1Ml/ Dose) 1 ml In Amino Acid 5%-D15w+Lytes*E* 1,000 ml @ 30 mls/hr IV .Q24H [facility] Rx#:[id number] Mvi, Adult No.4 with Vit 560 K 10 ml Trace (Conc-1Ml/ Dose) 1 ml In Amino Acid 5%-D15w+Lytes*E* 1,000 ml @ 80 mls/hr IV .BY DURATION [facility] Rx#: [id number] Sodium Chloride 0.45% 1, 500 400 000 ml @ 50 mls/hr IV . Q20H [facility] Rx#:[id number] Other: Voiding Method Toilet Toilet - Labs CBC & Chem 7: 12/03/20 05:26 12/06/20 04:58 Labs: Abnormal Lab Results - Last 24 Hours (Table) 12/06/20 12/06/20 12/06/20 Range/Units 11:36 17:34 23:54 POC Glucose (mg/dL) 174 H 269 H 338 H (75-99) mg/dL 12/07/20 Range/Units 06:21 POC Glucose (mg/dL) 227 H (75-99) mg/dL Assessment and Plan Plan: Assessment: 1. Acute kidney injury mostly prerenal secondary to hypovolemia and hypotension. Baseline creatinine is near 1 and peaked at 2.6 this admission - 0.88 yesterday. Kidneys are normal in size without any evidence of hydronephrosis. 2. History of Crohn's disease status post multiple bowel resections. 3. Small bowel obstruction. Surgery following. 4. Rule out chronic kidney disease. He does have proteinuria on UA which is most likely secondary to underlying diabetic kidney disease. UPC 0.2. 5. Metabolic acidosis secondary to acute kidney injury and IV fluids. Improved. 6. Mild hyperkalemia secondary to hyperglycemia and metabolic acidosis. Improved. 7. Diabetes mellitus. 8. Mild hypernatremia from lack of oral water intake. Improved. 9. History of TURP. Plan: Hep-Lock IV fluids. TPN/lipids per surgery recommendations. Avoid nephrotoxins. Continue to monitor renal function and urine output. Follow-up pending serologies. Negative so far.
[2020-12-07] MEDS: ATORVASTATIN 20 MG TAB PO SCH (09:25)
[2020-12-07] MEDS: BACLOFEN 10 MG TAB PO SCH ×2 (09:25→21:02)
[2020-12-07] MEDS: HEPARIN SODIUM,PORCINE/PF 5,000 UNIT/0.5 ML SYRINGE SQ SCH ×2 (09:26→21:02)
[2020-12-07] MEDS: NORTRIPTYLINE 10 MG CAP PO SCH ×2 (09:27→21:02)
[2020-12-07] MEDS: levETIRAcetam 500 MG TAB PO SCH ×2 (09:27→21:02)
[2020-12-07] MEDS: SODIUM CHLORIDE 0.45% 1,000 ML IV SCH (09:28)
--- NOTE | 2020-12-07 11:23 | P.PN ---
Progress Note - Text Progress Note Date: 12/07/20 Patient's feeling well. He's had another couple of bowel movements. On exam vital signs are stable. Abdomen soft. Resolving small bowel obstruction. Patient will most likely be discharged home with medicine service next week 4 hours
--- NOTE | 2020-12-07 11:56 | PN ---
PROGRESS NOTE DATE OF SERVICE: 12/07/2020. HISTORY: The patient is a 65-year-old pleasant white male with history of Crohn disease, recurrent small-bowel obstruction, admitted to the hospital with small-bowel obstruction and currently on IV steroids with Solu-Medrol 20 mg q.8 hours. For the last 2 days. He is doing much better. He had about 3 bowel movements yesterday and 1 this morning. Abdominal pain has improved. Abdominal distention has resolved. He remains on TPN currently. PHYSICAL EXAMINATION: Appears comfortable, no apparent distress. Vital signs stable blood pressure 141/48, pulse rate 63, temperature 97.6. HEENT examination unremarkable sclerae anicteric. Oral cavity no lesions. Neck no JVD abdomen chest was clear to auscultation. Heart regular rate and rhythm. Abdomen is soft, it was slightly tender but was benign. Extremities no pedal edema. Neuro alert and oriented x3. No focal deficits. LABS: No labs available from today. Abdominal x-rays today showed nonspecific bowel gas pattern. IMPRESSION: Small-bowel obstruction secondary to Crohn disease. The patient on IV Solu-Medrol 20 mg q.8 hours day #5. Symptoms gradually improving. Small bowel obstruction is resolving. On a full liquid diet tolerating well. The patient has been maintained on Cimzia on an outpatient basis for the last 3 months. RECOMMENDATIONS: 1. DC IV Solu-Medrol. 2. Start oral prednisone 40 mg daily and patient was advised to taper it by 5 mg every week. 3. Advance diet as tolerated as per surgery. 4. We will follow with you closely. Thank you for this consultation. MMODL / IJN: [id number] /
[2020-12-07] MEDS: predniSONE 20 MG TAB PO SCH (12:12)
[2020-12-07 12:26] LABS: Glucose,Whole Blood 312 mg/dL (75-99)
[2020-12-07] MEDS: 1: MVI, ADULT NO.4 WITH VIT K 10 ML, TRACE (CONC-1ML/DOSE) 1 ML in AMINO ACID 5%-D15W+LY IV SCH ×3 (12:57)
[2020-12-07 17:39] LABS: Glucose,Whole Blood 394 mg/dL (75-99)
[2020-12-07] MEDS: INSULIN DETEMIR (LEVEMIR) 100 UNIT/ML SYR SQ SCH (21:06)
[2020-12-07 23:52] LABS: Glucose,Whole Blood 361 mg/dL (75-99)
[2020-12-08] MEDS ORDERED: INSULIN DETEMIR (LEVEMIR) 100 UNIT/ML SYR SQ ONE (00:27)
[2020-12-08] MEDS ORDERED: INSULIN ASPART (NovoLOG) 100 UNIT/ML VIAL SQ ONE ×3 (00:29→21:16)
[2020-12-08] MEDS: INSULIN ASPART (NovoLOG) 100 UNIT/ML VIAL SQ SCH ×5 (00:35→21:47)
[2020-12-08] MEDS: 1: MVI, ADULT NO.4 WITH VIT K 10 ML, TRACE (CONC-1ML/DOSE) 1 ML in AMINO ACID 5%-D15W+LY IV SCH ×9 (00:37→21:49)
[2020-12-08] MEDS: HYDROmorphone 1 MG/ML 1 ML SYRINGE IVP PRN ×5 (05:16→21:37)
[2020-12-08 05:48] LABS: Glucose,Whole Blood 247 mg/dL (75-99)
[2020-12-08 07:08] LABS: African American GFR (CKD) >90 (>60 ml/min/1.73 sqM); Anion Gap 7 mmol/L; Blood Urea Nitrogen 22 mg/dL (9-20); Calcium 8.6 mg/dL (8.4-10.2); Carbon Dioxide 23 mmol/L (22-30); Chloride 104 mmol/L (98-107); Glucose 247 mg/dL (74-99); Magnesium 1.7 mg/dL (1.6-2.3); Non-African American GFR(CKD) >90 (>60 ml/min/1.73 sqM); Potassium 4.3 mmol/L (3.5-5.1); Sodium 134 mmol/L (137-145)
[2020-12-08] MEDS: PANTOPRAZOLE 40 MG TABLET PO SCH (07:28)
[2020-12-08] MEDS: IPRATROPIUM-ALBUTEROL 3 ML NEB INHALATION SCH ×3 (08:31→19:17)
[2020-12-08] MEDS: SYMBICORT 160-4.5 MCG INHALER INHALATION SCH ×2 (08:31→19:17)
[2020-12-08] MEDS: levETIRAcetam 500 MG TAB PO SCH ×2 (08:44→21:31)
[2020-12-08] MEDS: ATORVASTATIN 20 MG TAB PO SCH (08:44)
[2020-12-08] MEDS: BACLOFEN 10 MG TAB PO SCH ×2 (08:44→21:31)
[2020-12-08] MEDS: HEPARIN SODIUM,PORCINE/PF 5,000 UNIT/0.5 ML SYRINGE SQ SCH ×2 (08:44→21:31)
[2020-12-08] MEDS: predniSONE 20 MG TAB PO SCH (08:45)
[2020-12-08] MEDS: NORTRIPTYLINE 10 MG CAP PO SCH ×2 (08:45→21:31)
[2020-12-08] MEDS: SODIUM CHLORIDE 0.45% 1,000 ML IV SCH (08:49)
--- NOTE | 2020-12-08 09:15 | P.PN ---
Subjective Patient is seen in follow-up for acute kidney injury. Renal function improved with IV fluids. Receiving TPN. Now on regular diet. No vomiting or diarrhea. Good urine output. Vital signs are stable. General: The patient appeared well nourished and normally developed. HEENT: Head exam is unremarkable. Neck is without jugular venous distension. LUNGS: Breath sounds decreased. HEART: Rate and Rhythm are regular. ABDOMEN: Soft, no tenderness. EXTREMITITES: No edema. Objective - Vital Signs Vital signs: Vital Signs Temp 97.4 F L 12/08/20 04:54 Pulse 69 12/08/20 08:44 Resp 16 12/07/20 20:05 BP 147/78 12/08/20 04:54 Pulse Ox 96 12/08/20 04:54 Intake & Output 12/07/20 12/08/20 12/08/20 18:59 06:59 18:59 Intake Total 1011 1620 Balance 1011 1620 Intake: Intake, IV Titration 1011 1080 Amount Amino Acid 5%-D15w+Lytes* 880 E* 1,000 ml @ 80 mls/hr IV .BY DURATION [facility] Rx#: [id number] Mvi, Adult No.4 with Vit 1011 K 10 ml Trace (Conc-1Ml/ Dose) 1 ml In Amino Acid 5%-D15w+Lytes*E* 1,000 ml @ 80 mls/hr IV .BY DURATION [facility] Rx#: [id number] Sodium Chloride 0.45% 1, 200 000 ml @ 20 mls/hr IV . Q24H [facility] Rx#:[id number] Oral 540 Other: Voiding Method Toilet Toilet Toilet # Voids 1 2 - Labs CBC & Chem 7: 12/03/20 05:26 12/08/20 06:14 Labs: Abnormal Lab Results - Last 24 Hours (Table) 12/07/20 12/07/20 12/07/20 Range/Units 12:25 17:37 23:49 Sodium (137-145) mmol/L BUN (9-20) mg/dL Creatinine (0.66-1.25) mg/dL Glucose (74-99) mg/dL POC Glucose (mg/dL) 312 H 394 H 361 H (75-99) mg/dL 12/08/20 12/08/20 Range/Units 05:46 06:14 Sodium 134 L (137-145) mmol/L BUN 22 H (9-20) mg/dL Creatinine 0.64 L (0.66-1.25) mg/dL Glucose 247 H (74-99) mg/dL POC Glucose (mg/dL) 247 H (75-99) mg/dL Assessment and Plan Plan: Assessment: 1. Acute kidney injury mostly prerenal secondary to hypovolemia and hyp otension. Baseline creatinine is near 1 and peaked at 2.6 this admission - GFR back to baseline. Kidneys are normal in size without any evidence of hydronephrosis. 2. History of Crohn's disease status post multiple bowel resections. 3. Small bowel obstruction. Surgery following. 4. Rule out chronic kidney disease. He does have proteinuria on UA which is most likely secondary to underlying diabetic kidney disease. UPC 0.2. 5. Metabolic acidosis secondary to acute kidney injury and IV fluids. Improved. 6. Mild hyperkalemia secondary to hyperglycemia and metabolic acidosis. Improved. 7. Diabetes mellitus. 8. Mild hypernatremia from lack of oral water intake. Resolved. 9. History of TURP. Plan: Remains off IV fluids. TPN per surgery recommendations. Avoid nephrotoxins. Continue to monitor renal function and urine output. Follow-up pending serologies. Negative so far.
--- NOTE | 2020-12-08 11:38 | PN ---
PROGRESS NOTE DATE OF DICTATION: 12/08/2020 Patient is a 65-year-old pleasant white male with history of Crohn's disease who has been maintained on Cimzia on an outpatient basis for the last 2 months, admitted to the hospital small bowel obstruction, and symptoms are gradually improving. He was started on oral prednisone yesterday at 40 mg daily. He is doing well. Abdominal pain has resolved. On a regular diet, tolerating well. Had 2 bowel movements yesterday. PHYSICAL EXAMINATION: Appears comfortable. VITAL SIGNS: Stable blood pressure 147/78, pulse rate 56, temperature 97.4. HEENT EXAMINATION: Unremarkable. Conjunctivae pink. Sclerae anicteric. Oral cavity no lesions. NECK: No JVD. No lymph node enlargement. CHEST: Clear to auscultation. HEART: Regular rate and rhythm. ABDOMEN: Soft. Bowel sounds are positive. No organomegaly. EXTREMITIES: No pedal edema. NEURO: Alert and oriented x3. No focal deficits. LABS: Labs from today: basic metabolic panel is within normal limits. IMPRESSION: Exacerbation of Crohn's disease with recurrent small-bowel obstruction. The patient had 4 episodes in the last one year. He is currently on Cimzia on an outpatient basis that was started 2 months ago. IV steroids have been tapered and he is currently on oral prednisone 40 mg daily and doing well. RECOMMENDATIONS: 1. Advance diet as tolerated as per surgical team. 2. Continue with oral prednisone 40 mg daily, and patient was advised to taper the prednisone by 5 mg every week on an outpatient basis. 3. He will continue Cimzia once a month. 4. He will follow up in office in 3-4 weeks. We will sign off at this time. No GI Service available from tomorrow. Thank you for this consultation. MMODL / IJN: [id number] /
[2020-12-08 12:16] LABS: Glucose,Whole Blood 334 mg/dL (75-99)
[2020-12-08 17:37] LABS: Glucose,Whole Blood 315 mg/dL (75-99)
[2020-12-08 20:44] LABS: Glucose,Whole Blood 328 mg/dL (75-99)
[2020-12-08] MEDS ORDERED: INSULIN DETEMIR (LEVEMIR) 100 UNIT/ML SYR SQ SCH ×2 (21:00→21:30)
[2020-12-08 21:05] VITALS: RESP 18
[2020-12-09] MEDS: HYDROmorphone 1 MG/ML 1 ML SYRINGE IVP PRN ×2 (03:33→08:08)
[2020-12-09 05:30] LABS: African American GFR (CKD) >90 (>60 ml/min/1.73 sqM); Anion Gap 7 mmol/L; Blood Urea Nitrogen 21 mg/dL (9-20); Calcium 8.4 mg/dL (8.4-10.2); Carbon Dioxide 26 mmol/L (22-30); Chloride 100 mmol/L (98-107); Glucose 94 mg/dL (74-99); Magnesium 1.5 mg/dL (1.6-2.3); Non-African American GFR(CKD) >90 (>60 ml/min/1.73 sqM); Phosphorus 3.8 mg/dL (2.5-4.5); Sodium 133 mmol/L (137-145)
[2020-12-09 05:34] LABS: Potassium 4.5 mmol/L (3.5-5.1)
[2020-12-09] MEDS: IPRATROPIUM-ALBUTEROL 3 ML NEB INHALATION SCH ×2 (07:20→11:40)
[2020-12-09] MEDS: SYMBICORT 160-4.5 MCG INHALER INHALATION SCH (07:21)
[2020-12-09] MEDS: levETIRAcetam 500 MG TAB PO SCH (08:06)
[2020-12-09] MEDS: BACLOFEN 10 MG TAB PO SCH (08:06)
[2020-12-09] MEDS: predniSONE 20 MG TAB PO SCH (08:06)
[2020-12-09] MEDS: INSULIN ASPART (NovoLOG) 100 UNIT/ML VIAL SQ SCH ×4 (08:07→12:33)
[2020-12-09] MEDS: ATORVASTATIN 20 MG TAB PO SCH (08:07)
[2020-12-09] MEDS: HEPARIN SODIUM,PORCINE/PF 5,000 UNIT/0.5 ML SYRINGE SQ SCH (08:07)
[2020-12-09] MEDS: PANTOPRAZOLE 40 MG TABLET PO SCH (08:07)
[2020-12-09 08:09] LABS: Glucose,Whole Blood 99 mg/dL (75-99)
[2020-12-09] MEDS: NORTRIPTYLINE 10 MG CAP PO SCH (08:17)
--- NOTE | 2020-12-09 09:02 | P.PN ---
Subjective Progress Note Date: 12/09/20 Principal diagnosis: Small bowel obstruction Patient doing well today. He is tolerating solid foods. No nausea or vomiting. Having good bowel function. Minimal upper and mid abdominal discomfort intermittently. Patient says he would like to go home. Objective - Vital Signs Vital signs: Vital Signs Temp 97.4 F L 12/09/20 05:00 Pulse 80 12/09/20 07:37 Resp 18 12/09/20 05:00 BP 121/81 12/09/20 05:00 Pulse Ox 97 12/09/20 05:00 Intake & Output 12/08/20 12/09/20 12/09/20 18:59 06:59 18:59 Intake Total 1000 2260 Output Total 0 0 Balance 1000 2260 0 Intake: Intake, IV Titration 1000 220 Amount Amino Acid 5%-D15w+Lytes* 1000 E* 1,000 ml @ 80 mls/hr IV .BY DURATION [facility] Rx#: [id number] Sodium Chloride 0.45% 1, 220 000 ml @ 20 mls/hr IV . Q24H [facility] Rx#:[id number] Oral 2040 Output: Stool 0 0 Other: Voiding Method Toilet Toilet Toilet # Voids 2 2 - Exam Abdomen: Soft, nontender, nondistended - Labs CBC & Chem 7: 12/03/20 05:26 12/09/20 05:02 Labs: Abnormal Lab Results - Last 24 Hours (Table) 12/08/20 12/08/20 12/08/20 Range/Units 12:14 17:36 20:37 Sodium (137-145) mmol/L BUN (9-20) mg/dL Creatinine (0.66-1.25) mg/dL POC Glucose (mg/dL) 334 H 315 H 328 H (75-99) mg/dL Magnesium (1.6-2.3) mg/dL 12/09/20 Range/Units 05:02 Sodium 133 L (137-145) mmol/L BUN 21 H (9-20) mg/dL Creatinine 0.65 L (0.66-1.25) mg/dL POC Glucose (mg/dL) (75-99) mg/dL Magnesium 1.5 L (1.6-2.3) mg/dL Assessment and Plan (1) Small bowel obstruction Narrative/Plan: Patient doing better at this time. Continue oral steroids post discharge. Continue Biologics per GI. May discharge. Follow-up as needed. Current Visit: Yes Status: Acute Code(s): K56.609 - UNSP INTESTNL OBST, UNSP TO PARTIAL VERSUS COMPLETE OBST SNOMED Code(s): 674724566
--- NOTE | 2020-12-09 09:28 | P.PN ---
Subjective Patient is seen in follow-up for acute kidney injury. Renal function improved with IV fluids. TPN discontinued. Now on regular diet. No vomiting or diarrhea. Good urine output. Vital signs are stable. General: The patient appeared well nourished and normally developed. HEENT: Head exam is unremarkable. Neck is without jugular venous distension. LUNGS: Breath sounds decreased. HEART: Rate and Rhythm are regular. ABDOMEN: Soft, no tenderness. EXTREMITITES: No edema. Objective - Vital Signs Vital signs: Vital Signs Temp 97.4 F L 12/09/20 05:00 Pulse 80 12/09/20 07:37 Resp 18 12/09/20 05:00 BP 121/81 12/09/20 05:00 Pulse Ox 97 12/09/20 05:00 Intake & Output 12/08/20 12/09/20 12/09/20 18:59 06:59 18:59 Intake Total 1000 2260 Output Total 0 0 Balance 1000 2260 0 Intake: Intake, IV Titration 1000 220 Amount Amino Acid 5%-D15w+Lytes* 1000 E* 1,000 ml @ 80 mls/hr IV .BY DURATION [facility] Rx#: [id number] Sodium Chloride 0.45% 1, 220 000 ml @ 20 mls/hr IV . Q24H [facility] Rx#:[id number] Oral 2040 Output: Stool 0 0 Other: Voiding Method Toilet Toilet Toilet # Voids 2 2 - Labs CBC & Chem 7: 12/03/20 05:26 12/09/20 05:02 Labs: Abnormal Lab Results - Last 24 Hours (Table) 12/08/20 12/08/20 12/08/20 Range/Units 12:14 17:36 20:37 Sodium (137-145) mmol/L BUN (9-20) mg/dL Creatinine (0.66-1.25) mg/dL POC Glucose (mg/dL) 334 H 315 H 328 H (75-99) mg/dL Magnesium (1.6-2.3) mg/dL 12/09/20 Range/Units 05:02 Sodium 133 L (137-145) mmol/L BUN 21 H (9-20) mg/dL Creatinine 0.65 L (0.66-1.25) mg/dL POC Glucose (mg/dL) (75-99) mg/dL Magnesium 1.5 L (1.6-2.3) mg/dL Assessment and Plan Plan: Assessment: 1. Acute kidney injury mostly prerenal secondary to hypovolemia and hypotension. Baseline creatinine is near 1 and peaked at 2.6 this admission - GFR back to baseline. Kidneys are normal in size without any evidence of hydronephrosis. 2. History of Crohn's disease status post multiple bowel resections. 3. Small bowel obstruction. Surgery following. 4. Rule out chronic kidney disease. He does have proteinuria on UA which is most likely secondary to underlying diabetic kidney disease. UPC 0.2. 5. Metabolic acidosis secondary to acute kidney injury and IV fluids. Improved. 6. Mild hyperkalemia secondary to hyperglycemia and metabolic acidosis. Improved. 7. Diabetes mellitus. 8. Mild hypernatremia from lack of oral water intake. Resolved. Now slightly hyponatremic. 9. History of TURP. Plan: Remains off IV fluids. TPN discontinued. Oral intake is good. Avoid nephrotoxins. Continue to monitor renal function and urine output. Follow-up pending serologies. Negative so far.
[2020-12-09] MEDS ORDERED: HYDROcodone/APAP 5-325MG 1 EACH TAB PO PRN (11:33)
[2020-12-09 12:07] LABS: Glucose,Whole Blood 240 mg/dL (75-99)
[2020-12-09 12:14] VITALS: BP 135/73; PULSE 89; TEMP 98.1
[2020-12-09] MEDS: SODIUM CHLORIDE 0.45% 1,000 ML IV SCH (12:20)
[2020-12-09] MEDS: MAGNESIUM SULFATE-D5W PMX 1 GM in DEXTROSE/WATER 1 100ML.BAG IVPB SCH ×2 (12:23→13:34)
[2020-12-09 13:16] LABS: Albumin 3.25 g/dL (3.80-4.90); Gamma Globulin 1.62 g/dL (0.70-1.50)
[2020-12-09 14:11] LABS: C-ANCA <1:20 Titer (<1:20)
== END 2020-12-09 16:16 | disposition home or self-care (01) | DRG 386 ==
LOC: EC 11:39 → 4SSUR 17:11 → 1SOBS 12-02 07:34 → 5NMEDONC 12-02 18:16
PROVIDERS: ADMIT Internal Medicine; ATTEND Internal Medicine
PROC: 0D9670Z Drainage of Stomach with Drainage Device, Via Natural or Artificial Opening (ICD-10-PCS; principal; 2020-12-01)
PROC: 05HA33Z Insertion of Infusion Device into Left Brachial Vein, Percutaneous Approach (ICD-10-PCS; 2020-12-02)
PROC: 02HV33Z Insertion of Infusion Device into Superior Vena Cava, Percutaneous Approach (ICD-10-PCS; 2020-12-05)
PROC: 3E0436Z Introduction of Nutritional Substance into Central Vein, Percutaneous Approach (ICD-10-PCS; 2020-12-05)
DX: K50.012 Crohn's disease of small intestine with intestinal obstruction (principal); N17.9 Acute kidney failure, unspecified; E87.2 Acidosis; E87.0 Hyperosmolality and hypernatremia; E87.1 Hypo-osmolality and hyponatremia; Z16.24 Resistance to multiple antibiotics; K21.9 Gastro-esophageal reflux disease without esophagitis; Z79.4 Long term (current) use of insulin; M19.90 Unspecified osteoarthritis, unspecified site; Z86.718 Personal history of other venous thrombosis and embolism; Z86.73 Personal history of transient ischemic attack (TIA), and cerebral infarction without residual deficits; Z87.891 Personal history of nicotine dependence; Z79.51 Long term (current) use of inhaled steroids; G40.909 Epilepsy, unspecified, not intractable, without status epilepticus; R00.0 Tachycardia, unspecified; E86.1 Hypovolemia; I95.9 Hypotension, unspecified; E11.29 Type 2 diabetes mellitus with other diabetic kidney complication; E11.65 Type 2 diabetes mellitus with hyperglycemia; J45.909 Unspecified asthma, uncomplicated; Z90.49 Acquired absence of other specified parts of digestive tract; Z87.442 Personal history of urinary calculi; E87.5 Hyperkalemia; Z79.52 Long term (current) use of systemic steroids; Z79.899 Other long term (current) drug therapy; Z90.79 Acquired absence of other genital organ(s); Z98.1 Arthrodesis status
CPT/HCPCS: 36410; 36415; 36573; 71045; 74018; 74177; 76770; 76937; 80048; 80053; 81001; 82330; 82570; 83605; 83690; 83735; 84100; 84132; 84156; 84165; 84478; 85025; 85610; 85652; 85730; 86038; 86140; 86160; 86162; 86225; 86255; 86334; 86335; 93005; 94640; 96361; 96374; 96375; 99285

== ENCOUNTER 2021-03-15 15:38 | Emergency (ER) | payer MEDICARE ==
[2021-03-15 18:01] VITALS: RESP 16; TEMP 97.9
[2021-03-15] MEDS ORDERED: METOCLOPRAMIDE 5 MG/ML 2 ML VIAL IVP STA (19:33)
[2021-03-15] MEDS ORDERED: HYDROmorphone 0.5 MG/0.5 ML SYRINGE IVP STA (19:33)
[2021-03-15] MEDS ORDERED: SODIUM CHLORIDE 0.9% 1,000 ML IV STA (19:33)
--- NOTE | 2021-03-15 19:43 | ED ---
Abdominal Pain HPI - General Chief Complaint: Abdominal Pain Stated Complaint: Crohns flare up Time Seen by Provider: 03/15/21 19:30 Source: patient, RN notes reviewed, old records reviewed Mode of arrival: ambulatory Limitations: no limitations - History of Present Illness Initial Comments: 65-year-old male patient ambulatory to the ER with complaints of right sided abdominal pain for the past 10 days. He states it feels similar to his Crohn's flareups in the past. He has had 5 bowel resections and was told by Dr. Emerson that the next time he may need surgery again. Patient delayed coming in because he is afraid of having surgery. He denies any fevers but he states he has been having nausea vomiting and diarrhea. He states that he has brown watery diarrhea. He has history of appendectomy, 5 bowel resections, cholecystectomy and a left lobectomy related to a fungal infection. He also has a history of asthma, GERD, anemia, DVT, kidney stones and diabetes. MD Complaint: abdominal pain Location: RUQ, RLQ Radiation: none Severity: severe Severity scale (1-10): 8 Quality: stabbing, sharp Consistency: constant Improves With: nothing Context: other (History of Crohn's) Associated Symptoms: nausea, vomiting, diarrhea - Related Data Home Medications Medication Instructions Recorded Confirmed levETIRAcetam [Keppra] 500 mg PO DAILY 02/22/17 03/15/21 levETIRAcetam [Keppra] 1,000 mg PO HS 03/10/17 03/15/21 Nitroglycerin Sl Tabs [Nitrostat] 0.4 mg SL Q5M PRN 04/26/17 03/15/21 Albuterol Sulfate [Albuterol 2 puff INHALATION RT-Q4H PRN 01/21/20 03/15/21 Sulfate Hfa] Insulin Lispro [humaLOG Kwikpen] See Protocol SQ AC-TID 01/21/20 03/15/21 Budesonide/Formoterol Fumarate 2 puff INHALATION RT-BID 05/08/20 03/15/21 [Symbicort 160-4.5 Mcg Inhaler] Pantoprazole Sodium [Protonix] 40 mg PO DAILY 05/08/20 03/15/21 Atorvastatin [Lipitor] 20 mg PO DAILY 12/01/20 03/15/21 Baclofen [Lioresal] 20 mg PO BID 12/01/20 03/15/21 Certolizumab Pegol [Cimzia] 400 mg SQ Q14D 12/01/20 03/15/21 Nortriptyline HCl [Pamelor] 10 mg PO BID 12/01/20 03/15/21 Previous Rx's Medication Instructions Recorded Insulin Glargine,Hum.rec.anlog 25 unit SQ HS #0 12/09/20 [Lantus Solostar Pen] Insulin Lispro [humaLOG Kwikpen] 7 unit SQ AC-TID #0 12/09/20 Sulfamethox-Tmp 800-160Mg [Bactrim 1 each PO Q12HR 7 Days #14 tab 03/15/21 Ds] Allergies Allergy/AdvReac Type Severity Reaction Status Date / Time aspirin Allergy Swelling Verified 03/15/21 20:12 ondansetron HCl [From Zofran] Allergy Unknown Verified 03/15/21 20:12 penicillin G Allergy Rash/Hives Verified 03/15/21 20:12 venom-wasp [Wasp Venom] Allergy Anaphylaxis Verified 03/15/21 20:12 nalbuphine HCl [From Nubain] AdvReac Vomiting Verified 03/15/21 20:12 Review of Systems ROS Statement: Those systems with pertinent positive or pertinent negative responses have been documented in the HPI. ROS Other: All systems not noted in ROS Statement are negative. Past Medical History Past Medical History: Asthma, CVA/TIA, Diabetes Mellitus, Deep Vein Thrombosis (DVT), GERD/Reflux, Osteoarthritis (OA), Skin Disorder Additional Past Medical History / Comment(s): HX OF KIDNEY STONES, CROHNS DISEASE, HX OF BLOOD CLOT RT ARM AND BEHIND RT KNEE, TIA/seizure/brain bleed 08/2016, see Dr Wright H&P, "spots of dry skin", hx anemia, september 2018 stone removed L kidney History of Any Multi-Drug Resistant Organisms: MRSA Date of last positivie culture/infection: 2006 MDRO Source:: nose Past Surgical History: Appendectomy, Back Surgery, Bowel Resection, Cholecystectomy, Heart Catheterization, Prostate Surgery Additional Past Surgical History / Comment(s): BOWEL RESECTION X 5, SPINAL SURGERIES X3, LEFT LOBECTOMY. lithotripsy, TURP, neck fusion. Past Anesthesia/Blood Transfusion Reactions: No Reported Reaction Past Psychological History: No Psychological Hx Reported Smoking Status: Former smoker Past Alcohol Use History: None Reported Past Drug Use History: None Reported - Past Family History Mother Family Medical History: Deep Vein Thrombosis (DVT) General Exam Limitations: no limitations General appearance: alert, in no apparent distress Head exam: Present: atraumatic, normocephalic, normal inspection ENT exam: Present: mucous membranes dry Neck exam: Present: normal inspection, full ROM. Absent: tenderness, menin gismus, lymphadenopathy Respiratory exam: Present: normal lung sounds bilaterally. Absent: respiratory distress, wheezes, rales, rhonchi, stridor, chest wall tenderness, accessory muscle use, decreased breath sounds Cardiovascular Exam: Present: regular rate, normal rhythm, normal heart sounds. Absent: systolic murmur, diastolic murmur, rubs, gallop, clicks GI/Abdominal exam: Present: tenderness (Diffuse), hyperactive bowel sounds, other (Multiple scars from multiple bowel resections). Absent: distended, guarding, rebound, rigid Extremities exam: Present: normal inspection, full ROM, normal capillary refill. Absent: tenderness, pedal edema, joint swelling, calf tenderness Back exam: Present: normal inspection, full ROM. Absent: tenderness, CVA tenderness (R), CVA tenderness (L), rash noted Neurological exam: Present: alert, oriented X3, normal gait Psychiatric exam: Present: normal affect, normal mood Skin exam: Present: warm, dry, intact, normal color. Absent: rash, diaphoretic, erythema Course Vital Signs 03/15/21 17:59 Temperature 97.9 F Pulse Rate 87 Respiratory 16 Rate Blood Pressure 111/70 O2 Sat by Pulse 100 Oximetry - Reevaluation(s) Reevaluation #1: 03/15/21 22:10 Patient feeling better after Reglan and Dilaudid. Awaiting labs to send to CT Time: 22:10 Medical Decision Making - Medical Decision Making This is a well-appearing 65-year-old male who presents to the emergency room with abdominal pain. He states that this feels like a Crohn's flareup. He has had 5 out resections in the past. He also has a history of kidney stones. Labs show no evidence of leukocytosis. Patient's chloride is 109, carbon dioxide is 15, BUN is 22, creat. is 1.34. This is likely related to his persistent vomiting and diarrhea for the past several days. His urinalysis shows 1+ protein, 1+ ketones, large amounts of blood, and [address] the abdomen and pelvis shows a 1.5 cm calculus lower pole of the right kidney has a 1 mm calculus at lower pole left kidney there is no evidence of free air. There is no ascites. There is evidence for some intestinal ileus. Small bowel dilation is improved compared to old exam. Due to the blood in the urine and history of kidney stones this is likely caused from passing a kidney stone. He was encouraged to increase fluid intake and urinate every few hours to prevent blood clots in the bladder. He was placed on antibiotics for urinary tract infection. Patient states that he is feeling better discharge. He has had no nausea vomiting or diarrhea in the emergency room his medications were given. States that he will follow-up with his urologist Dr. Wheatley next week. Instructed to return to the emergency room with any new or worsening symptoms. Case discussed with Dr. Angeles - Lab Data Result diagrams: 03/15/21 21:48 03/15/21 21:48 Lab Results 03/15/21 03/15/21 03/15/21 Range/Units 21:48 21:48 21:48 WBC 5.7 (3.8-10.6) k/uL RBC 4.29 L (4.30-5.90) m/uL Hgb 13.7 (13.0-17.5) gm/dL Hct 40.5 (39.0-53.0) % MCV 94.4 (80.0-100.0) fL MCH 31.9 (25.0-35.0) pg MCHC 33.8 (31.0-37.0) g/dL RDW 16.2 H (11.5-15.5) % Plt Count 167 (150-450) k/uL MPV 7.5 Neutrophils % 43 % Lymphocytes % 46 % Monocytes % 8 % Eosinophils % 1 % Basophils % 1 % Neutrophils # 2.5 (1.3-7.7) k/uL Lymphocytes # 2.6 (1.0-4.8) k/uL Monocytes # 0.5 (0-1.0) k/uL Eosinophils # 0.0 (0-0.7) k/uL Basophils # 0.0 (0-0.2) k/uL Poikilocytosis Slight Anisocytosis Slight ESR 72 H (0-15) mm/hr Sodium 139 (137-145) mmol/L Potassium 3.6 (3.5-5.1) mmol/L Chloride 109 H (98-107) mmol/L Carbon Dioxide 15 L (22-30) mmol/L Anion Gap 15 mmol/L BUN 22 H (9-20) mg/dL Creatinine 1.34 H (0.66-1.25) mg/dL Est GFR (CKD-EPI)AfAm 64 (>60 ml/min/1.73 sqM) Est GFR (CKD-EPI)NonAf 55 (>60 ml/min/1.73 sqM) Glucose 116 H (74-99) mg/dL Plasma Lactic Acid Jose Miguel (0.7-2.0) mmol/L Calcium 8.3 L (8.4-10.2) mg/dL Total Bilirubin 0.6 (0.2-1.3) mg/dL AST 24 (17-59) U/L ALT 17 (4-49) U/L Alkaline Phosphatase 144 H (38-126) U/L C-Reactive Protein 0.5 (<1.0) mg/dL Total Protein 8.0 (6.3-8.2) g/dL Albumin 4.0 (3.5-5.0) g/dL Amylase 52 (30-110) U/L Lipase 60 (23-300) U/L Urine Color Red Urine Appearance Cloudy (Clear) Urine pH 5.5 (5.0-8.0) Ur Specific [place] 1.029 (1.001-1.035) Urine Protein 1+ H (Negative) Urine Glucose (UA) Negative (Negative) Urine Ketones 1+ H (Negative) Urine Blood Large H (Negative) Urine Nitrite Negative (Negative) Urine Bilirubin Negative (Negative) Urine Urobilinogen <2.0 (<2.0) mg/dL Ur Leukocyte Esterase Moderate H (Negative) Urine RBC >182 H (0-5) /hpf Urine WBC 117 H (0-5) /hpf Urine WBC Clumps Few H (None) /hpf Ur Squamous Epith Cells 2 (0-4) /hpf Hyaline Casts 17 H (0-2) /lpf Urine Yeast (Budding) Occasional H (None) /hpf 03/15/21 Range/Units 21:48 WBC (3.8-10.6) k/uL RBC (4.30-5.90) m/uL Hgb (13.0-17.5) gm/dL Hct (39.0-53.0) % MCV (80.0-100.0) fL MCH (25.0-35.0) pg MCHC (31.0-37.0) g/dL RDW (11.5-15.5) % Plt Count (150-450) k/uL MPV Neutrophils % % Lymphocytes % % Monocytes % % Eosinophils % % Basophils % % Neutrophils # (1.3-7.7) k/uL Lymphocytes # (1.0-4.8) k/uL Monocytes # (0-1.0) k/uL Eosinophils # (0-0.7) k/uL Basophils # (0-0.2) k/uL Poikilocytosis Anisocytosis ESR (0-15) mm/hr Sodium (137-145) mmol/L Potassium (3.5-5.1) mmol/L Chloride (98-107) mmol/L Carbon Dioxide (22-30) mmol/L Anion Gap mmol/L BUN (9-20) mg/dL Creatinine (0.66-1.25) mg/dL Est GFR (CKD-EPI)AfAm (>60 ml/min/1.73 sqM) Est GFR (CKD-EPI)NonAf (>60 ml/min/1.73 sqM) Glucose (74-99) mg/dL Plasma Lactic Acid Jose Miguel 1.3 (0.7-2.0) mmol/L Calcium (8.4-10.2) mg/dL Total Bilirubin (0.2-1.3) mg/dL AST (17-59) U/L ALT (4-49) U/L Alkaline Phosphatase (38-126) U/L C-Reactive Protein (<1.0) mg/dL Total Protein (6.3-8.2) g/dL Albumin (3.5-5.0) g/dL Amylase (30-110) U/L Lipase (23-300) U/L Urine Color Urine Appearance (Clear) Urine pH (5.0-8.0) Ur Specific [place] (1.001-1.035) Urine Protein (Negative) Urine Glucose (UA) (Negative) Urine Ketones (Negative) Urine Blood (Negative) Urine Nitrite (Negative) Urine Bilirubin (Negative) Urine Urobilinogen (<2.0) mg/dL Ur Leukocyte Esterase (Negative) Urine RBC (0-5) /hpf Urine WBC (0-5) /hpf Urine WBC Clumps (None) /hpf Ur Squamous Epith Cells (0-4) /hpf Hyaline Casts (0-2) /lpf Urine Yeast (Budding) (None) /hpf Disposition Clinical Impression: Abdominal pain, Calculus of kidney, UTI (urinary tract infection) Disposition: HOME SELF-CARE Condition: Good Instructions (If sedation given, give patient instructions): Kidney Stones (ED), Urinary Tract Infection in Men (ED), Abdominal Pain (ED) Additional Instructions: Take antibiotics as prescribed, follow-up with your primary care doctor and urologist next week. Return to the emergency room with any new or concerning symptoms. Increase your fluid intake. Prescriptions: Sulfamethox-Tmp 800-160Mg [Bactrim Ds] 1 each PO Q12HR 7 Days #14 tab Is patient prescribed a controlled substance at d/c from ED?: No Referrals: Adela Lorenz MD [Primary Care Provider] - 1-2 days Fransico Dumont MD [STAFF PHYSICIAN] - 1-2 days Time of Disposition: 23:32
[2021-03-15 22:29] LABS: Appearance,Urine Cloudy (Clear); Bilirubin,Urine Negative (Negative); Blood,Urine Large (Negative); Budding Yeast,Urine Occasional /hpf; Color,Urine Red; Glucose,Urine (UA) Negative (Negative); Hyaline Casts,Urine 17 /lpf (0-2); Ketones,Urine 1+ (Negative); Leukocyte Esterase,Urine Moderate (Negative); Nitrite,Urine Negative (Negative); PH, Urine 5.5 (5.0-8.0); Protein,Urine 1+ (Negative); RBC,Urine >182 /hpf (0-5); Specific Gravity,Urine 1.029 (1.001-1.035); Squamous Epithelial Cell,Urine 2 /hpf (0-4); Urobilinogen,Urine <2.0 mg/dL (<2.0); WBC,Urine 117 /hpf (0-5)
[2021-03-15 22:39] LABS: Anisocytosis Slight; Basophils % (A) 1 %; Eosinophils % (A) 1 %; HCT 40.5 % (39.0-53.0); HGB 13.7 gm/dL (13.0-17.5); Lymphocytes # (A) 2.6 k/uL (1.0-4.8); Lymphocytes % (A) 46 %; MCH 31.9 pg (25.0-35.0); MCHC 33.8 g/dL (31.0-37.0); MCV 94.4 fL (80.0-100.0); Mean Platelet Volume 7.5; Monocytes # (A) 0.5 k/uL (0-1.0); Monocytes % (A) 8 %; Neutrophils # (A) 2.5 k/uL (1.3-7.7); Neutrophils % (A) 43 %; Platelet Count 167 k/uL (150-450); Poikilocytosis Slight; RBC 4.29 m/uL (4.30-5.90); RDW 16.2 % (11.5-15.5); WBC 5.7 k/uL (3.8-10.6)
[2021-03-15 22:40] LABS: C Reactive Protein 0.5 mg/dL (<1.0); Calcium 8.3 mg/dL (8.4-10.2); Potassium 3.6 mmol/L (3.5-5.1); Total Bilirubin 0.6 mg/dL (0.2-1.3)
--- NOTE | 2021-03-15 23:23 | CT ---
EXAMINATION TYPE: CT abdomen pelvis wo con DATE OF EXAM: 03/15/2021 COMPARISON: HISTORY: pain CT DLP: 613.9 mGycm Automated exposure control for dose reduction was used. Images obtained from the diaphragm to the floor the pelvis with no contrast. There is minimal fibrotic changes at the lung bases. There is no pleural effusion. There is no perica rdial effusion. Heart size is fairly normal. There is probably some pulmonary emphysema. There are clips from cholecystectomy. Common bile duct is large and measures 2 cm. Intrahepatic bile ducts are nondilated. Spleen is intact. There is no pancreatic mass. The stomach is intact. There is no adrenal mass. Kidneys show normal size and contour. There is no hydronephrosis. There is 1.5 cm calculus lower pole right kidney. There is 1 mm calculus lower pole left kidney. There is no r etroperitoneal adenopathy. Ureters are not dilated. Abdominal aorta shows mild atheromatous changes. Bladder distends smoothly. There is prostatic calcification. There is air-fluid levels in the small d own to the rectum. There is no evidence of free air. There is no ascites. There are distended small b owel loops. There is apparent total colectomy.. Small bowel dilated in some places up to 5 cm. Lumbar vertebra have normal alignment. There is posterior fusion surgery at L5-S1. There is no compre ssion fracture. Bony pelvis appears intact. The hip joints are intact. IMPRESSION: There is evidence for some intestinal ileus. Fluid levels down to the rectum. Small bowel dilation is improved slightly compared to old exam. Nonobstructing renal calculi.
[2021-03-15 23:30] LABS: Erythrocyte Sedimentation Rate 72 mm/hr (0-15)
[2021-03-15 23:57] VITALS: BP 114/70; PULSE 82
== END 2021-03-15 23:57 | disposition home or self-care (01) ==
LOC: EC 15:38
DX: N20.0 Calculus of kidney (principal); N39.0 Urinary tract infection, site not specified; J45.909 Unspecified asthma, uncomplicated; E11.9 Type 2 diabetes mellitus without complications; K21.9 Gastro-esophageal reflux disease without esophagitis; M19.90 Unspecified osteoarthritis, unspecified site; Z87.440 Personal history of urinary (tract) infections; Z79.4 Long term (current) use of insulin; Z88.0 Allergy status to penicillin; Z86.73 Personal history of transient ischemic attack (TIA), and cerebral infarction without residual deficits; Z86.718 Personal history of other venous thrombosis and embolism; Z90.49 Acquired absence of other specified parts of digestive tract; Z87.891 Personal history of nicotine dependence
CPT/HCPCS: 99284; 96374; 96375; 36415; 80053; 85652; 82150; 83605; 83690; 85025; 86140; 81001; 87086; 87077; 87186; 74176; J2765; J1170

== ENCOUNTER 2021-03-29 12:40 | Inpatient (IN) | payer MEDICARE ==
[2021-03-29] MEDS ORDERED: ALBUTEROL HFA INHALER INHALATION STA (13:04)
--- NOTE | 2021-03-29 13:08 | ED ---
SOB HPI - General Chief Complaint: Shortness of Breath Stated Complaint: SOB Time Seen by Provider: 03/29/21 12:50 Source: patient, RN notes reviewed Mode of arrival: wheelchair - History of Present Illness Initial Comments: 65-year-old male history of COPD who states she's had cough and shortness of breath or past 2 weeks plus he states he has exertional dyspnea he can walk ac ross a room without getting very short of breath he denies any chest pain he's had chills no overt fevers when he coughs he has yellow phlegm. No palpitations reported no other complaints or modifying factors he denies any exposure to cold and he did have the COVID-19 shots in the spring of this year. MD Complaint: shortness of breath - Related Data Home Medications Medication Instructions Recorded Confirmed levETIRAcetam [Keppra] 500 mg PO DAILY 02/22/17 03/29/21 levETIRAcetam [Keppra] 1,000 mg PO HS 03/10/17 03/29/21 Nitroglycerin Sl Tabs [Nitrostat] 0.4 mg SL Q5M PRN 04/26/17 03/29/21 Albuterol Sulfate [Albuterol 2 puff INHALATION RT-Q4H PRN 01/21/20 03/29/21 Sulfate Hfa] Insulin Lispro [humaLOG Kwikpen] See Protocol SQ AC-TID 01/21/20 03/29/21 Budesonide/Formoterol Fumarate 2 puff INHALATION RT-BID 05/08/20 03/29/21 [Symbicort 160-4.5 Mcg Inhaler] Pantoprazole Sodium [Protonix] 40 mg PO DAILY 05/08/20 03/29/21 Atorvastatin [Lipitor] 20 mg PO DAILY 12/01/20 03/29/21 Baclofen [Lioresal] 20 mg PO BID 12/01/20 03/29/21 Certolizumab Pegol [Cimzia] 400 mg SQ Q28D 12/01/20 03/29/21 Nortriptyline HCl [Pamelor] 10 mg PO BID 12/01/20 03/29/21 Insulin Lispro [humaLOG Kwikpen] 5 unit SQ AC-TID 03/29/21 03/29/21 Previous Rx's Medication Instructions Recorded Insulin Glargine,Hum.rec.anlog 25 unit SQ HS #0 12/09/20 [Lantus Solostar Pen] Ciprofloxacin HCl [Cipro] 500 mg PO BID 10 Days #20 tab 03/19/21 Allergies Allergy/AdvReac Type Severity Reaction Status Date / Time aspirin Allergy Swelling Verified 03/29/21 13:44 ondansetron HCl [From Zofran] Allergy Unknown Verified 03/29/21 13:44 penicillin G Allergy Rash/Hives Verified 03/29/21 13:44 venom-wasp [Wasp Venom] Allergy Anaphylaxis Verified 03/29/21 13:44 nalbuphine HCl [From Nubain] AdvReac Vomiting Verified 03/29/21 13:44 Review of Systems ROS Statement: Those systems with pertinent positive or pertinent negative responses have been documented in the HPI. ROS Other: All systems not noted in ROS Statement are negative. Past Medical History Past Medical History: Asthma, CVA/TIA, Diabetes Mellitus, Deep Vein Thrombosis (DVT), GERD/Reflux, Osteoarthritis (OA), Skin Disorder Additional Past Medical History / Comment(s): HX OF KIDNEY STONES, CROHNS DISEASE, HX OF BLOOD CLOT RT ARM AND BEHIND RT KNEE, TIA/seizure/brain bleed 08/2016, see Dr Wright H&P, "spots of dry skin", hx anemia, september 2018 stone removed L kidney History of Any Multi-Drug Resistant Organisms: MRSA Date of last positivie culture/infection: 2006 MDRO Source:: nose Past Surgical History: Appendectomy, Back Surgery, Bowel Resection, Cholecystectomy, Heart Catheterization, Prostate Surgery Additional Past Surgical History / Comment(s): BOWEL RESECTION X 5, SPINAL SURGERIES X3, LEFT LOBECTOMY. lithotripsy, TURP, neck fusion. Past Anesthesia/Blood Transfusion Reactions: No Reported Reaction Past Psychological History: No Psychological Hx Reported Smoking Status: Former smoker Past Alcohol Use History: None Reported Past Drug Use History: None Reported - Past Family History Mother Family Medical History: Deep Vein Thrombosis (DVT) General Exam - General Exam Comments Initial Comments: This is a well-developed well-nourished awake alert oriented 3 male General appearance: alert, in no apparent distress Head exam: Present: atraumatic, normocephalic, normal inspection Eye exam: Present: normal appearance, PERRL, EOMI. Absent: scleral icterus, conjunctival injection, periorbital swelling ENT exam: Present: mucous membranes dry Neck exam: Present: normal inspection. Absent: tenderness, meningismus, lymphadenopathy Respiratory exam: Present: decreased breath sounds. Absent: respiratory distress, wheezes, rales, rhonchi, stridor Cardiovascular Exam: Present: regular rate, normal rhythm, normal heart sounds. Absent: systolic murmur, diastolic murmur, rubs, gallop, clicks GI/Abdominal exam: Present: soft, normal bowel sounds. Absent: distended, tenderness, guarding, rebound, rigid Extremities exam: Present: normal inspection, full ROM, normal capillary refill. Absent: tenderness, pedal edema, joint swelling, calf tenderness Back exam: Present: normal inspection Neurological exam: Present: alert, oriented X3, CN II-XII intact Psychiatric exam: Present: normal affect, normal mood Skin exam: Present: warm, dry, intact, normal color. Absent: rash Course Vital Signs 03/29/21 03/29/21 03/29/21 12:43 13:48 15:46 Temperature 97.9 F Pulse Rate 110 H 84 Respiratory 20 19 20 Rate Blood Pressure 88/63 94/70 O2 Sat by Pulse 92 L 97 Oximetry 03/29/21 17:20 Temperature Pulse Rate 81 Respiratory 18 Rate Blood Pressure 100/83 O2 Sat by Pulse 99 Oximetry - Reevaluation(s) Reevaluation #1: 03/29/21 13:39 The patient informs staff that he has not taken his Keppra medication for past several days no seizure activity and therefore thus far however. Medical Decision Making - Medical Decision Making I did discuss findings the patient as well as with Dr. Gonsalez the patient be admitted - Lab Data Result diagrams: 03/29/21 16:40 03/29/21 16:40 Lab Results 03/29/21 03/29/21 03/29/21 Range/Units 13:10 16:40 16:40 WBC 12.9 H (3.8-10.6) k/uL RBC 4.54 (4.30-5.90) m/uL Hgb 14.4 (13.0-17.5) gm/dL Hct 43.9 (39.0-53.0) % MCV 96.5 (80.0-100.0) fL MCH 31.7 (25.0-35.0) pg MCHC 32.8 (31.0-37.0) g/dL RDW 16.3 H (11.5-15.5) % Plt Count 331 (150-450) k/uL MPV 7.8 Neutrophils % 56 % Lymphocytes % 34 % Monocytes % 6 % Eosinophils % 1 % Basophils % 1 % Neutrophils # 7.3 (1.3-7.7) k/uL Lymphocytes # 4.4 (1.0-4.8) k/uL Monocytes # 0.7 (0-1.0) k/uL Eosinophils # 0.2 (0-0.7) k/uL Basophils # 0.1 (0-0.2) k/uL Hypochromasia Slight Poikilocytosis Slight Anisocytosis Slight PT 12.2 H (9.0-12.0) sec INR 1.2 H (<1.2) APTT 20.7 L (22.0-30.0) sec D-Dimer 0.63 H (<0.60) mg/L FEU Chloride Plasma Lactic Acid Jose Miguel (0.7-2.0) mmol/L Troponin I (0.000-0.034) ng/mL NT-Pro-B Natriuret Pep pg/mL Influenza Type A (PCR) Not Detected (Not Detectd) Influenza Type B (PCR) Not Detected (Not Detectd) RSV (PCR) Not Detected (Not Detectd) SARS-CoV-2 (PCR) Detected A (Not Detectd) 03/29/21 03/29/21 03/29/21 Range/Units 16:40 16:40 16:40 WBC (3.8-10.6) k/uL RBC (4.30-5.90) m/uL Hgb (13.0-17.5) gm/dL Hct (39.0-53.0) % MCV (80.0-100.0) fL MCH (25.0-35.0) pg MCHC (31.0-37.0) g/dL RDW (11.5-15.5) % Plt Count (150-450) k/uL MPV Neutrophils % % Lymphocytes % % Monocytes % % Eosinophils % % Basophils % % Neutrophils # (1.3-7.7) k/uL Lymphocytes # (1.0-4.8) k/uL Monocytes # (0-1.0) k/uL Eosinophils # (0-0.7) k/uL Basophils # (0-0.2) k/uL Hypochromasia Poikilocytosis Anisocytosis PT (9.0-12.0) sec INR (<1.2) APTT (22.0-30.0) sec D-Dimer (<0.60) mg/L FEU Chloride [employer] Plasma Lactic Acid Jose Miguel 1.5 (0.7-2.0) mmol/L Troponin I 0.021 (0.000-0.034) ng/mL NT-Pro-B Natriuret Pep pg/mL Influenza Type A (PCR) (Not Detectd) Influenza Type B (PCR) (Not Detectd) RSV (PCR) (Not Detectd) SARS-CoV-2 (PCR) (Not Detectd) 03/29/21 Range/Units 17:12 WBC (3.8-10.6) k/uL RBC (4.30-5.90) m/uL Hgb (13.0-17.5) gm/dL Hct (39.0-53.0) % MCV (80.0-100.0) fL MCH (25.0-35.0) pg MCHC (31.0-37.0) g/dL RDW (11.5-15.5) % Plt Count (150-450) k/uL MPV Neutrophils % % Lymphocytes % % Monocytes % % Eosinophils % % Basophils % % Neutrophils # (1.3-7.7) k/uL Lymphocytes # (1.0-4.8) k/uL Monocytes # (0-1.0) k/uL Eosinophils # (0-0.7) k/uL Basophils # (0-0.2) k/uL Hypochromasia Poikilocytosis Anisocytosis PT (9.0-12.0) sec INR (<1.2) APTT (22.0-30.0) sec D-Dimer (<0.60) mg/L FEU Chloride Plasma Lactic Acid Jose Miguel (0.7-2.0) mmol/L Troponin I (0.000-0.034) ng/mL NT-Pro-B Natriuret Pep 81 pg/mL Influenza Type A (PCR) (Not Detectd) Influenza Type B (PCR) (Not Detectd) RSV (PCR) (Not Detectd) SARS-CoV-2 (PCR) (Not Detectd) - EKG Data -: EKG Interpreted by Me EKG shows normal: sinus rhythm EKG Comments: Sinus rhythm of 85 180 QRS duration 110 daily since QTC 412/494 QT noted no acute ST-T wave changes - Radiology Data Radiology results: report reviewed (Imaging reviewed evidence of a small right sided pleural effusion), image reviewed Disposition Clinical Impression: Acute exacerbation of chronic obstructive pulmonary disease, COVID-19, Pleural effusion, right Disposition: ADMITTED IP TO THIS HOSP Condition: Fair Referrals: Adela Lorenz MD [Primary Care Provider] - 1-2 days
--- NOTE | 2021-03-29 13:29 | XR ---
EXAMINATION TYPE: XR chest 2V DATE OF EXAM: 03/29/2021 COMPARISON: 12/05/2020 HISTORY: Shortness of breath. TECHNIQUE: Frontal and lateral views of the chest are obtained. FINDINGS: There is a small right pleural effusion which was seen previously and is stable. The lungs are clear consolidative or interstitial opacity. There is no pneumothorax. Heart size and vasculature are normal. The osseous structures are intact. IMPRESSION: Persistent small right pleural effusion with no other significant abnormality seen.
[2021-03-29] MEDS ORDERED: levETIRAcetam IV 1,000 MG in SALINE 1 100ML.BAG IVPB STA (13:39)
[2021-03-29] MEDS ORDERED: HYDROmorphone 1 MG/ML 1 ML SYRINGE IVP STA (16:09)
[2021-03-29 17:02] LABS: Anisocytosis Slight; Basophils # (A) 0.1 k/uL (0-0.2); Basophils % (A) 1 %; Eosinophils # (A) 0.2 k/uL (0-0.7); Eosinophils % (A) 1 %; HCT 43.9 % (39.0-53.0); HGB 14.4 gm/dL (13.0-17.5); Hypochromasia Slight; Lymphocytes # (A) 4.4 k/uL (1.0-4.8); Lymphocytes % (A) 34 %; MCH 31.7 pg (25.0-35.0); MCHC 32.8 g/dL (31.0-37.0); MCV 96.5 fL (80.0-100.0); Mean Platelet Volume 7.8; Monocytes # (A) 0.7 k/uL (0-1.0); Monocytes % (A) 6 %; Neutrophils # (A) 7.3 k/uL (1.3-7.7); Neutrophils % (A) 56 %; Platelet Count 331 k/uL (150-450); Poikilocytosis Slight; RBC 4.54 m/uL (4.30-5.90); RDW 16.3 % (11.5-15.5); WBC 12.9 k/uL (3.8-10.6)
[2021-03-29 17:14] LABS: INR 1.2 (<1.2); Partial Thromboplastin Time 20.7 sec (22.0-30.0); Prothrombin Time 12.2 sec (9.0-12.0)
[2021-03-29] MEDS ORDERED: CERTOLIZUMAB PEGOL 400 MG/2 ML SQ SCH (18:00)
--- NOTE | 2021-03-29 18:17 | HP ---
HISTORY AND PHYSICAL DATE OF SERVICE: 03/29/2021 CHIEF COMPLAINT: Shortness of breath. HISTORY OF PRESENT ILLNESS: This 65-year-old gentleman with a past medical history of asthma, history of CVA, TIA, diabetes mellitus, DVT, GERD, DJD, being followed by Dr. Lorenz in the outpatient setting, was complaining of increasing shortness of breath over the past several days. The patient was unable to even walk across the room without getting extremely short of breath, and the patient came to [facility] and was admitted for evaluation and treatment. The patient did have a COVID shot a few months ago, J and J, according to him. The patient came to [facility] and was found to be COVID positive. The basic labs are awaited at this time. The chest x-ray which I reviewed personally showed some right pleural effusion and lower lobe lesions, possibly indicative of some COVID pneumonia as well. There is no history of any fever, rigor or chills at this time. The patient is also followed by Dr. Qureshi in the outpatient setting. PAST MEDICAL HISTORY: History of asthma, COPD, history of GERD, DJD, back surgery. HOME MEDICATIONS: Keppra, Protonix, Pamelor, Nitrostat, Humalog, Lantus, Cipro, Symbicort, Lioresal, Lipitor and albuterol. ALLERGIES: ASPIRIN, ZOFRAN, PENICILLIN, AND NUBAIN. FAMILY HISTORY: History of DVT in the family. SOCIAL HISTORY: History of smoking. Occasional alcohol intake. REVIEW OF SYSTEMS: ENT: Diminished hearing. Diminished vision. CARDIOVASCULAR SYSTEM: As mentioned earlier. RESPIRATORY SYSTEM: As mentioned earlier. GI: As mentioned earlier. : No dysuria. NERVOUS SYSTEM: No numbness, weakness. ALLERGY/IMMUNOLOGY: As mentioned earlier. MUSCULOSKELETAL: As mentioned earlier. HEMATOLOGY/ONCOLOGY: No history of anemia. ENDOCRINE: As mentioned earlier. CONSTITUTIONAL: As mentioned earlier. DERMATOLOGY: Negative. RHEUMATOLOGY: Negative. PSYCHIATRY: As mentioned earlier. PHYSICAL EXAMINATION: Patient alert and oriented x3. Pulse is 84, blood pressure is 88/60, respiration 20, temperature 97.2, pulse ox 92% on room air and 97% on 3 L. HEENT: Conjunctivae normal. Oral mucosa moist. NECK: No jugular venous distention. No carotid bruit. No lymph node enlargement. CARDIOVASCULAR: S1, S2 muffled. RESPIRATION: Breath sounds diminished at the bases. Bilateral scattered rhonchi and crackles. Expiratory wheezing also present. ABDOMEN: Soft, nontender. No mass palpable. LEGS: No edema. No swelling. NERVOUS SYSTEM: Higher functions as mentioned earlier. Moves all 4 limbs. No focal motor or sensory deficit. LYMPHATICS: No lymph node palpable in neck, axillae or groin. SKIN: No ulcer, rash, bleeding. JOINTS: No active deforming arthropathy. LABS: Labs at this time show COVID-19 is positive. Other labs are awaited. ASSESSMENT: 1. Chronic obstructive pulmonary disease, acute exacerbation, with acute bibasilar bronchopneumonia. 2. Acute COVID-19 infection with possible acute bilateral COVID-19 interstitial pneumonia. 3. History of asthma, acute exacerbation. 4. Diabetes mellitus, type 2. 5. History of deep vein thrombosis. 6. Gastroesophageal reflux disease. 7. History of degenerative joint disease. 8. History of skin disorder. 9. History of kidney stones. 10.History of Crohn's disease. 11.History of blood clot in the arm and behind the right knee. 12.History of transient ischemic attack. 13.History of MRSA. 14.History of back pain. 15.History of appendectomy. 16.History of cholecystectomy. 17.History of left lobectomy. 18.History of bowel resection. 19.History of nicotine dependence. RECOMMENDATIONS AND DISCUSSION: In this 65-year-old gentleman who presented with multiple complex medical issues, we will monitor the patient closely, continue the current medications, continue symptomatic treatment, bronchodilators, IV steroids. I would also recommend D- dimer and further evaluation for the COVID-19 with inflammatory markers. If the D- dimer is elevated, recommend CT angio of the chest to rule out the possibility of pulmonary embolism. We will follow the patient closely. Prognosis guarded. Discussed with the patient, who understands and agrees. We will consult Pulmonary and Infectious Disease also. A copy of this dictation is being forwarded to Dr. Lorenz, who is the primary physician. MMVANGIE / JENS: [id number] / MTDD
[2021-03-29] MEDS: ALBUTEROL HFA INHALER INHALATION SCH ×2 (19:36→19:42)
[2021-03-29] MEDS: SYMBICORT 160-4.5 MCG INHALER INHALATION SCH ×2 (19:37→19:40)
[2021-03-29 21:35] LABS: ALT 25 U/L (4-49); AST 27 U/L (17-59); African American GFR (CKD) 24 (>60 ml/min/1.73 sqM); Alkaline Phosphatase 173 U/L (38-126); Anion Gap 19 mmol/L; Blood Urea Nitrogen 79 mg/dL (9-20); Calcium 9.5 mg/dL (8.4-10.2); Carbon Dioxide 11 mmol/L (22-30); Chloride 107 mmol/L (98-107); Globulin 4.2 g/dL; Glucose 243 mg/dL (74-99); Non-African American GFR(CKD) 21 (>60 ml/min/1.73 sqM); Potassium 3.1 mmol/L (3.5-5.1); Sodium 137 mmol/L (137-145); Total Bilirubin 0.6 mg/dL (0.2-1.3); Total Protein 8.2 g/dL (6.3-8.2)
[2021-03-29] MEDS: methylPREDNISolone SOD SUCCI 125 MG/2 ML VIAL IV SCH (22:53)
[2021-03-29 23:01] LABS: Glucose,Whole Blood 209 mg/dL (75-99)
[2021-03-29] MEDS ORDERED: TRIMETHOBENZAMIDE 100 MG/ML 2 ML VIAL IM STA (23:07)
[2021-03-29] MEDS: INSULIN ASPART (NovoLOG) 100 UNIT/ML VIAL SQ SCH (23:11)
[2021-03-29] MEDS: CHOLECALCIFEROL 25 MCG (1000 IU) TABLET PO SCH (23:12)
[2021-03-29] MEDS: ZINC SULFATE 220 MG CAP PO SCH (23:13)
[2021-03-29] MEDS: ASCORBIC ACID 500 MG TAB PO SCH (23:13)
[2021-03-30] MEDS: ALBUTEROL HFA INHALER INHALATION SCH ×8 (00:05→23:23)
[2021-03-30] MEDS: methylPREDNISolone SOD SUCCI 125 MG/2 ML VIAL IV SCH ×3 (00:16→11:56)
[2021-03-30] MEDS: ENOXAPARIN 40 MG/0.4 ML SYRINGE SQ SCH ×2 (00:17→08:06)
[2021-03-30] MEDS: BACLOFEN 10 MG TAB PO SCH ×3 (00:17→22:20)
[2021-03-30] MEDS: INSULIN DETEMIR (LEVEMIR) 100 UNIT/ML SYR SQ SCH ×2 (00:17→22:07)
[2021-03-30] MEDS: NORTRIPTYLINE 10 MG CAP PO SCH ×3 (00:18→22:20)
[2021-03-30] MEDS: levETIRAcetam 500 MG TAB PO SCH ×2 (00:48→08:08)
[2021-03-30 07:21] LABS: ALT 27 U/L (4-49); AST 28 U/L (17-59); African American GFR (CKD) 21 (>60 ml/min/1.73 sqM); Albumin 4.1 g/dL (3.5-5.0); Alkaline Phosphatase 197 U/L (38-126); Anion Gap 18 mmol/L; Blood Urea Nitrogen 81 mg/dL (9-20); Calcium 9.8 mg/dL (8.4-10.2); Carbon Dioxide 12 mmol/L (22-30); Chloride 108 mmol/L (98-107); Globulin 4.3 g/dL; Glucose 271 mg/dL (74-99); Non-African American GFR(CKD) 18 (>60 ml/min/1.73 sqM); Potassium 3.2 mmol/L (3.5-5.1); Sodium 138 mmol/L (137-145); Total Bilirubin 0.7 mg/dL (0.2-1.3); Total Protein 8.4 g/dL (6.3-8.2)
[2021-03-30 07:58] LABS: Glucose,Whole Blood 297 mg/dL (75-99)
[2021-03-30 08:01] LABS: Anisocytosis Slight; Basophils # (A) 0.1 k/uL (0-0.2); Basophils % (A) 0 %; Eosinophils % (A) 0 %; HCT 41.9 % (39.0-53.0); HGB 14.1 gm/dL (13.0-17.5); Lymphocytes # (A) 1.6 k/uL (1.0-4.8); Lymphocytes % (A) 13 %; MCH 31.9 pg (25.0-35.0); MCHC 33.7 g/dL (31.0-37.0); MCV 94.7 fL (80.0-100.0); Mean Platelet Volume 8.4; Monocytes # (A) 0.2 k/uL (0-1.0); Monocytes % (A) 2 %; Neutrophils # (A) 10.2 k/uL (1.3-7.7); Neutrophils % (A) 83 %; Platelet Count 341 k/uL (150-450); Poikilocytosis Slight; RBC 4.42 m/uL (4.30-5.90); RDW 17.2 % (11.5-15.5); WBC 12.2 k/uL (3.8-10.6)
[2021-03-30] MEDS: INSULIN ASPART (NovoLOG) 100 UNIT/ML VIAL SQ SCH ×8 (08:06→22:20)
[2021-03-30] MEDS: ZINC SULFATE 220 MG CAP PO SCH (08:07)
[2021-03-30] MEDS: CHOLECALCIFEROL 25 MCG (1000 IU) TABLET PO SCH (08:07)
[2021-03-30] MEDS: ASCORBIC ACID 500 MG TAB PO SCH ×2 (08:07→21:55)
[2021-03-30] MEDS: ATORVASTATIN 20 MG TAB PO SCH (08:07)
[2021-03-30] MEDS ORDERED: PANTOPRAZOLE 40 MG TABLET PO SCH (09:00)
[2021-03-30] MEDS ORDERED: AZITHROMYCIN 500 MG TAB PO SCH (09:00)
[2021-03-30] MEDS: SYMBICORT 160-4.5 MCG INHALER INHALATION SCH ×2 (09:27→21:43)
[2021-03-30 11:47] LABS: Glucose,Whole Blood 333 mg/dL (75-99)
[2021-03-30] MEDS ORDERED: SODIUM BICARB 8.4% 50 ML SYR (1 MEQ/ML) IV STA (13:06)
[2021-03-30] MEDS ORDERED: SODIUM CHLORIDE 0.9% 1,000 ML IV ONE ×2 (13:06→19:16)
[2021-03-30] MEDS ORDERED: Potassium Replacement Protocol 1 EACH MISC MISCELLANE PRN ×2 (13:09→13:29)
[2021-03-30] MEDS ORDERED: IOPAMIDOL CONTRAST (ORAL USE) VIAL PO PRN (13:26)
[2021-03-30 13:27] LABS: Glucose,Whole Blood 279 mg/dL (75-99)
[2021-03-30 13:33] LABS: ABG Base Excess -14.9 mmol/L; ABG Oxygen Saturation 98.7 % (94-97); ABG PO2 180 mmHg (83-108); ABG TCO2 10 mmol/L (19-24); Allen Test Performed? Yes
--- NOTE | 2021-03-30 13:44 | P.CNPUL ---
History of Present Illness Consult date: 03/30/21 Reason for consult: dyspnea, other Chief complaint: COVID-19, severe dehydration, nausea and vomiting History of present illness: 68-year-old male patient with past medical history of Crohn's disease status post multiple bowel resections, history of recent hospitalization for acute kidney injury related to hypovolemia and small bowel obstruction, diabetes mellitus type 2, history of BPH status post TURP, remote history of smoking who presented to the emergency department on 03/29/2021 with complaints of weakness for the past 2 weeks. According to the ED record patient was also complaining of some dyspnea on presentation. He was having a difficult time walking across a room without getting very short of breath. He denied any chest pain, no fever or chills. He reports some yellow colored phlegm production. He is vaccinated with Artemio & Artemio vaccine, single dose. The dates are unknown, patient is a patient of Dr. Lorenz, he is short of breath, he is confused this morning, he is a poor historian. His chest x-ray on admission showed persistent small right pleural effusion with no other significant abnormality. Patient denies any chronic lung problems. He is on Symbicort at home on a regular basis, he was started on IV Solu-Medrol, azithromycin in the emergency department. In addition patient reportedly had extensive nausea, vomiting and diarrhea at home. She tested positive for COVID-19 in the emergency department, he is RSV and influenza A and B were negative, his renal function was significantly abnormal with evidence of acute kidney injury and the BUN of 79 and creatinine of 2.9, potassium level was 3.1, sodium was 137, right was 107, CO2 was 11, d-dimer 0.63, INR is 1.2, BUN of 12.9, hemoglobin of 14.4. Earlier this morning he was on room air, maintaining O2 saturations at 92-98%, afebrile, blood pressures were on the lower side with systolic in the 90s and diastolic in the 50s. During my evaluation patient is restless very confused, he is dyspneic, and this was a change from earlier exam according to the nursing staff. He required to be placed on supplemental oxygen and he was satting 82% on 3 L and FiO2 has subsequently been increased to 6 L. This morning's labs revealed worsening renal function, with BUN of 81 and creatinine 3.37, potassium is 3.2, CO2 is onl y 12. Abdomen is soft, nontender, the patient did have vomiting on midnight shift. Appears very dehydrated Review of Systems All systems: negative Constitutional: Denies chills, Denies fever Eyes: denies blurred vision, denies pain Ears, nose, mouth and throat: Denies headache, Denies sore throat Cardiovascular: Denies chest pain, Denies shortness of breath Respiratory: Reports dyspnea, Denies cough Gastrointestinal: Reports diarrhea, Reports nausea, Reports vomiting, Denies abdominal pain Musculoskeletal: Denies myalgias Integumentary: Denies pruritus, Denies rash Neurological: Denies numbness, Denies weakness Psychiatric: Denies anxiety, Denies depression Endocrine: Denies fatigue, Denies weight change Past Medical History Past Medical History: Asthma, CVA/TIA, Diabetes Mellitus, Deep Vein Thrombosis (DVT), GERD/Reflux, Osteoarthritis (OA), Skin Disorder Additional Past Medical History / Comment(s): HX OF KIDNEY STONES, CROHNS DISEASE, HX OF BLOOD CLOT RT ARM AND BEHIND RT KNEE, TIA/seizure/brain bleed 08/2016, see Dr Wright H&P, "spots of dry skin", hx anemia, september 2018 stone removed L kidney History of Any Multi-Drug Resistant Organisms: MRSA Date of last positivie culture/infection: 2006 MDRO Source:: nose Past Surgical History: Appendectomy, Back Surgery, Bowel Resection, Cholecystectomy, Heart Catheterization, Prostate Surgery Additional Past Surgical History / Comment(s): BOWEL RESECTION X 5, SPINAL SURGERIES X3, LEFT LOBECTOMY. lithotripsy, TURP, neck fusion. Past Anesthesia/Blood Transfusion Reactions: No Reported Reaction Past Psychological History: No Psychological Hx Reported Smoking Status: Former smoker Past Alcohol Use History: None Reported Additional Past Alcohol Use History / Comment(s): quit smoking 2005, smoked for > 30 yrs. 1-2 PPD Past Drug Use History: None Reported - Past Family History Mother Family Medical History: Deep Vein Thrombosis (DVT) Medications and Allergies Home Medications Medication Instructions Recorded Confirmed Type levETIRAcetam [Keppra] 500 mg PO DAILY 02/22/17 03/29/21 History levETIRAcetam [Keppra] 1,000 mg PO HS 03/10/17 03/29/21 History Nitroglycerin Sl Tabs [Nitrostat] 0.4 mg SL Q5M PRN 04/26/17 03/29/21 History Albuterol Sulfate [Albuterol 2 puff INHALATION RT-Q4H PRN 01/21/20 03/29/21 History Sulfate Hfa] Insulin Lispro [humaLOG Kwikpen] See Protocol SQ AC-TID 01/21/20 03/29/21 History Budesonide/Formoterol Fumarate 2 puff INHALATION RT-BID 05/08/20 03/29/21 History [Symbicort 160-4.5 Mcg Inhaler] Pantoprazole Sodium [Protonix] 40 mg PO DAILY 05/08/20 03/29/21 History Atorvastatin [Lipitor] 20 mg PO DAILY 12/01/20 03/29/21 History Baclofen [Lioresal] 20 mg PO BID 12/01/20 03/29/21 History Certolizumab Pegol [Cimzia] 400 mg SQ Q28D 12/01/20 03/29/21 History Nortriptyline HCl [Pamelor] 10 mg PO BID 12/01/20 03/29/21 History Insulin Glargine,Hum.rec.anlog 25 unit SQ HS #0 12/09/20 03/29/21 Rx [Lantus Solostar Pen] Ciprofloxacin HCl [Cipro] 500 mg PO BID 10 Days #20 tab 03/19/21 03/29/21 Rx Insulin Lispro [humaLOG Kwikpen] 5 unit SQ AC-TID 03/29/21 03/29/21 History Allergies Allergy/AdvReac Type Severity Reaction Status Date / Time aspirin Allergy Swelling Verified 03/29/21 13:44 ondansetron HCl [From Zofran] Allergy Unknown Verified 03/29/21 13:44 penicillin G Allergy Rash/Hives Verified 03/29/21 13:44 venom-wasp [Wasp Venom] Allergy Anaphylaxis Verified 03/29/21 13:44 nalbuphine HCl [From Nubain] AdvReac Vomiting Verified 03/29/21 13:44 Physical Exam Vitals: Vital Signs Temp Pulse Pulse Resp BP BP Pulse Ox 03/30/21 10:08 98.6 F 80 18 104/74 92 L 03/30/21 09:28 98 03/30/21 08:32 20 03/30/21 06:00 97.1 F L 79 16 93/59 100 03/30/21 03:22 97.6 F 88 97/68 97 03/29/21 17:57 78 20 102/72 99 03/29/21 17:20 81 18 100/83 99 03/29/21 15:46 84 20 94/70 97 03/29/21 13:48 19 Intake and Output 03/29/21 03/30/21 03/30/21 22:59 06:59 14:59 Intake Total 200 Balance 200 Intake: Oral 200 Other: # Voids 1 1 Weight 89.811 kg GENERAL EXAM: Alert, very confused, restless, 65-year-old white male, on 6 L of oxygen pulse ox is 92%, but patient is dyspneic, and tachypneic comfortable in no apparent distress. HEAD: Normocephalic/atraumatic. EYES: Normal reaction of pupils, equal size. Conjunctiva pink, sclera white. NOSE: Clear with pink turbinates. MOUTH: dry oral mucous membranes THROAT: No erythema or exudates. NECK: No masses, no JVD, no thyroid enlargement, no adenopathy. CHEST: No chest wall deformity. Symmetrical expansion. LUNGS: Equal air entry with diminished breath sounds at bilateral bases, no crackles CVS: Regular rate and rhythm, normal S1 and S2, no gallops, no murmurs, no rubs ABDOMEN: Soft, nontender. No hepatosplenomegaly, normal bowel sounds, no guarding or rigidity. Midabdominal healed abdominal incision from previous history of Crohn's disease and bowel resections EXTREMITIES: No clubbing, no edema, no cyanosis, 2+ pulses and upper and lower extremities. MUSCULOSKELETAL: Muscle strength and tone normal. SPINE: No scoliosis or deformity SKIN: No rashes CENTRAL NERVOUS SYSTEM: Alert and oriented -3. No focal deficits, tone is normal in all 4 extremities. PSYCHIATRIC: Alert and oriented -2, confused, restless. Results - Laboratory Findings CBC and BMP: 03/30/21 06:37 03/30/21 06:37 PT/INR, D-dimer PT 12.2 sec (9.0-12.0) H 03/29/21 16:40 INR 1.2 (<1.2) H 03/29/21 16:40 D-Dimer 0.63 mg/L FEU (<0.60) H 03/29/21 16:40 Abnormal lab findings: Abnormal Labs 03/29/21 03/29/21 03/29/21 13:10 16:40 16:40 WBC 12.9 H RDW 16.3 H Neutrophils # PT 12.2 H INR 1.2 H APTT 20.7 L D-Dimer 0.63 H Potassium Chloride Carbon Dioxide BUN Creatinine Glucose POC Glucose (mg/dL) Alkaline Phosphatase Total Protein SARS-CoV-2 (PCR) Detected A 03/29/21 03/29/21 03/30/21 20:33 22:59 06:37 WBC 12.2 H RDW 17.2 H Neutrophils # 10.2 H PT INR APTT D-Dimer Potassium 3.1 L Chloride Carbon Dioxide 11 L BUN 79 H Creatinine 2.99 H Glucose 243 H POC Glucose (mg/dL) 209 H Alkaline Phosphatase 173 H Total Protein SARS-CoV-2 (PCR) 03/30/21 03/30/21 03/30/21 06:37 07:57 11:44 WBC RDW Neutrophils # PT INR APTT D-Dimer Potassium 3.2 L Chloride 108 H Carbon Dioxide 12 L BUN 81 H Creatinine 3.37 H Glucose 271 H POC Glucose (mg/dL) 297 H 333 H Alkaline Phosphatase 197 H Total Protein 8.4 H SARS-CoV-2 (PCR) - Diagnostic Findings Chest x-ray: report reviewed, image reviewed Assessment and Plan Plan: Assessment: #1. Acute COVID-19 infection, without evidence of pneumonia on the chest x-ray, chest x-ray shows persistent small right pleural effusion without other significant abnormality. Onset of symptoms is approximately 2 weeks ago. Patient is vaccinated with Artemio & Artemio vaccine. Not a candidate for Remdesivir related to length of symptoms, no evidence of pneumonia on the chest x-ray and acute kidney injury #2. Nausea and vomiting, rule out possibility of small bowel obstruction #3. Acute kidney injury related to ATN, and severe dehydration #4. Previous history of Crohn's disease with multiple bowel resections #5. Recent hospitalization in November for dehydration, small bowel obstruction, and acute kidney injury #6. Possible component of chronic kidney disease, most recently recovered from his recent episode in November, was seen by nephrology during that admission #7. Questionable history of COPD, remote history of smoking, patient denies any chronic lung disease #8. Confusion, dyspnea, possibly related to metabolic encephalopathy #9. Acute metabolic acidosis, related to severe dehydration and ATN and acute kidney injury #10. Diabetes mellitus type 2 #11. History of CVA/TIA #12. GERD/reflux #13. History of back surgery #14. Possible history of seizures, patient has Keppra on his home med list Plan: Blood gas has been reviewed showing pO2 of 180, pCO2 of 16, and pH of 7.39, consistent with severe metabolic acidosis with respiratory compensation No need for BiPAP right now the patient needs to get IV access established and start fluid resuscitation and 2 A of sodium bicarbonate No evidence of pneumonia on the chest x-ray Patient's symptoms likely related to acute kidney injury, nausea and vomiting, and severe metabolic acidosis We can stop the IV steroids right now Name patient nothing by mouth Consult nephrology Obtain CT of abdomen with oral contrast We'll continue to closely follow I performed a history & physical examination of the patient and discussed their management with my nurse practitioner, Malini Wooten. I reviewed the nurse practitioner's note and agree with the documented findings and plan of care. Tigist ng sounds are positive for dim breath sounds throughout the lung sood. The findings and the impression was discussed with the patient. I attest to the documentation by the nurse practitioner. Time with Patient: Greater than 30
[2021-03-30 13:49] LABS: ABG HCO3 10 mmol/L (21-25); ABG PCO2 16 mmHg (35-45)
[2021-03-30] MEDS ORDERED: POTASSIUM CHLORIDE ER 20 MEQ TAB.ER PO SCH (14:00)
[2021-03-30] MEDS: POTASSIUM CHLORIDE 10 MEQ in WATER FOR INJECTION 1 100ML.BAG IVPB SCH ×4 (14:53→19:09)
[2021-03-30] MEDS: SODIUM CHLORIDE 0.9% 1,000 ML IV SCH (14:59)
[2021-03-30 15:10] LABS: Glucose,Whole Blood 246 mg/dL (75-99)
[2021-03-30] MEDS ORDERED: methylPREDNISolone SOD SUCCI 40 MG/ML 1 ML VIAL IV SCH (16:00)
[2021-03-30 16:47] LABS: Glucose,Whole Blood 194 mg/dL (75-99)
[2021-03-30] MEDS: PANTOPRAZOLE 40 MG/10 ML VIAL IVP SCH (17:43)
[2021-03-30] MEDS ORDERED: VANCOMYCIN IV PER PHARMACY 1 EACH MISC MISCELLANE PRN (18:04)
[2021-03-30] MEDS ORDERED: VANCOMYCIN 1,750 MG in SODIUM CHLORIDE 0.9% 500 ML 500 ML IVPB ONE (19:00)
--- NOTE | 2021-03-30 19:00 | PN ---
PROGRESS NOTE DATE OF SERVICE: 03/30/2021 This 65-year-old gentleman who was admitted with COPD, acute exacerbation, acute bibasilar bronchopneumonia, also had acute COVID-19 infection. Patient also had COVID- related pneumonia. The patient is mildly confused. No chest pain. No palpitations. No fever. The patient is on 6 L nasal cannula. Multiple consultants are following the patient closely. The patient is being followed by Pulmonary as well as Infectious Disease. No chest pain. No palpitations. No fever. REVIEW OF SYSTEMS: CARDIOVASCULAR SYSTEM: No angina. RESPIRATION: As mentioned earlier. GI: As mentioned earlier. : No dysuria. NERVOUS SYSTEM: No numbness, weakness. PHYSICAL EXAMINATION: Alert and oriented . Pulse 77, blood pressure 126/70, respiration 18, temperature 97.2, pulse ox 100% on 6 L. HEENT: Conjunctivae normal. NECK: No jugular venous distention. CARDIOVASCULAR: S1, S2 muffled. RESPIRATION: Breath sounds diminished at the bases. A few scattered rhonchi and crackles. ABDOMEN: Soft, nontender. LEGS: No edema. No swelling. NERVOUS SYSTEM: No focal deficit. LABS: ABGs show pH of 7.4. Sodium 138, potassium 3.2. CURRENT MEDICATIONS: Reviewed. They include Ventolin, vitamin C, Lipitor, lioresal. Doses and other medications are reviewed. ASSESSMENT: 1. Chronic obstructive pulmonary disease, acute exacerbation, with acute bibasilar bronchopneumonia. 2. Acute COVID-19 infection with possible acute bilateral COVID-19 interstitial pneumonia with acute hypoxic respiratory failure. 3. History of asthma, acute exacerbation. 4. Diabetes mellitus, type 2. 5. History of deep vein thrombosis. 6. Gastroesophageal reflux disease. 7. History of degenerative joint disease. 8. History of skin disorder. 9. History of kidney stones. 10.History of Crohn's disease. 11.History of blood clot in the hand and behind the right knee. 12.History of transient ischemic attack. 13.History of MRSA. 14.History of back pain. 15.History of appendectomy. 16.History of cholecystectomy. 17.History of left lobectomy. 18.History of bowel resection. 19.History of nicotine dependence. RECOMMENDATIONS AND DISCUSSION: I recommend to continue current medications, continue with the monitoring, symptomatic treatment. Otherwise at this time I would recommend monitoring the pulse ox closely. Continue with the Lovenox. Continue with Solu-Medrol. Guarded prognosis because of multiple complex medical issues. Further recommendations to follow. See orders for further details. Monitor the blood sugars also. Continue with dexamethasone Solu- Medrol. PIEDAD / JENS: [id number] / MTDD
[2021-03-30] MEDS: DEXAMETHASONE SOD PHOSPHATE 10 MG/ML 1 ML VIAL IVP SCH (19:11)
[2021-03-30 19:39] LABS: African American GFR (CKD) 19 (>60 ml/min/1.73 sqM); Anion Gap 17 mmol/L; Blood Urea Nitrogen 91 mg/dL (9-20); Calcium 9.1 mg/dL (8.4-10.2); Carbon Dioxide 11 mmol/L (22-30); Chloride 111 mmol/L (98-107); Glucose 224 mg/dL (74-99); Non-African American GFR(CKD) 17 (>60 ml/min/1.73 sqM); Sodium 139 mmol/L (137-145)
[2021-03-30 20:52] LABS: Glucose,Whole Blood 254 mg/dL (75-99)
--- NOTE | 2021-03-30 21:36 | CT ---
EXAMINATION TYPE: CT abdomen pelvis wo con DATE OF EXAM: 03/30/2021 COMPARISON: 03/15/2021 HISTORY: Nausea and vomiting. CT DLP: 691 mGycm Automated exposure control for dose reduction was used. Images obtained from the diaphragm to the floor the pelvis with no contrast. Heart size is normal. There is mild subsegmental atelectasis at the right lung base. Liver spleen pancreas appear intact. There are clips from cholecystectomy. Bile ducts are not dilated . Stomach is intact. There is no adrenal mass. Kidneys show normal size and contour. There is no hydr onephrosis. There is 1.5 cm calculus lower pole right kidney. There is 2 mm calculus lower pole left kidney. There is no hydronephrosis. Ureters are not dilated. There is no retroperitoneal adenopathy. There is Curran catheter in the urinary bladder. Bladder is empty. There is no inguinal hernia. There is mild prostatic calcification. There is no free fluid in the pelvis. There is no evidence of a pelv ic mass. The lumbar vertebra have normal alignment. The disc spaces are normal. There is posterior fusion surg orion at L5-S1. The bony pelvis is intact. The hip joints are intact. There is no mesenteric edema. There is no ascites or free air. There is no evidence of a bowel obstru ction. There is fluid levels in the large bowel down to the distal sigmoid colon. There is broad-based umbilical hernia containing transverse colon. There is a periumbilical incarcera phillip hernia containing transverse colon. No definite obstruction seen. IMPRESSION: Large bowel fluid levels consistent with ileus and diarrhea. This appears not significantly different than recent exam. I do not see evidence for mechanical bowel obstruction. Minimal scarring and subse gmental atelectasis at the lung bases without change. Bilateral nonobstructing renal calcifications without change. Umbilical and periumbilical hernias without sign of an obstruction.
[2021-03-30] MEDS: levETIRAcetam IV 1,000 MG in SALINE 1 100ML.BAG IVPB SCH (22:21)
[2021-03-31] MEDS: SODIUM CHLORIDE 0.9% 1,000 ML IV SCH (03:18)
[2021-03-31] MEDS: levETIRAcetam 500 MG TAB PO SCH ×2 (03:19→07:43)
[2021-03-31] MEDS: ALBUTEROL HFA INHALER INHALATION SCH ×5 (04:32→20:08)
[2021-03-31 07:03] LABS: Glucose,Whole Blood 97 mg/dL (75-99)
[2021-03-31] MEDS: INSULIN ASPART (NovoLOG) 100 UNIT/ML VIAL SQ SCH ×7 (07:31→20:37)
[2021-03-31] MEDS: ENOXAPARIN 40 MG/0.4 ML SYRINGE SQ SCH (07:41)
[2021-03-31] MEDS: PANTOPRAZOLE 40 MG/10 ML VIAL IVP SCH (07:41)
[2021-03-31] MEDS: DEXAMETHASONE SOD PHOSPHATE 10 MG/ML 1 ML VIAL IVP SCH (07:41)
[2021-03-31] MEDS: BACLOFEN 10 MG TAB PO SCH (07:42)
[2021-03-31] MEDS: ZINC SULFATE 220 MG CAP PO SCH (07:42)
[2021-03-31] MEDS: ASCORBIC ACID 500 MG TAB PO SCH ×2 (07:42→19:46)
[2021-03-31] MEDS: ATORVASTATIN 20 MG TAB PO SCH (07:42)
[2021-03-31] MEDS: CHOLECALCIFEROL 25 MCG (1000 IU) TABLET PO SCH (07:42)
[2021-03-31] MEDS: NORTRIPTYLINE 10 MG CAP PO SCH ×2 (07:43→19:46)
[2021-03-31] MEDS: SYMBICORT 160-4.5 MCG INHALER INHALATION SCH ×2 (08:24→20:09)
--- NOTE | 2021-03-31 08:34 | P.CONS ---
History of Present Illness - Reason for Consult Consult date: 03/30/21 covid 19 infection Requesting physician: Shirley Gonsalez - Chief Complaint weakness and shortness of breath x 2 weeks - History of Present Illness History of present illness : Patient is 65-year-old male with a past medical history of anal Crohn's disease and did have multiple bowel obstruction history of type 2 diabetes and renal prostatic hypertrophy patient presenting to the ER at [facility] yesterday for evaluation of weakness that has been getting worse for the last 2 days before presentation to the hospital patient also complaining of shortness of breath on exertion no chest pain no fever patient also have a cough which is mild to moderate intensity with some yellow sputum patient has received 1 dose of Artemio & Artemio vaccine patient o n presentation to the hospital was afebrile and no fever has been recorded subsequently patient did have mild hypoxemia with O2 sats of 92% on room air on presentation is currently 98% on 4 L nasal cannula patient did have an elevated white count and no lymphopenia D-dimer was mildly elevated did have elevated BUN and creatinine liver exams are normal patient did have positive Covid test influenza and RSV were negative patient did have a chest x-ray persistent small right effusion with no other significant abnormality patient did have a CT of abdominal pelvis large bowel fluid levels consistent with ileus and diarrhea bilateral nasal polyps unlikely perirectal hernia without signs of obstruction infectious was consulted for further management patient himself evaluated good historian so most information has been extracted from review the chart and talking to the nursing staff , patient blood pressure subsequently came up positive with gram-positive cocci Review of system: Positive point has been mentioned in HPI complete review could not be obtained because of underlying mental status Past medical history : Reviewed, documented below Past surgical history : Reviewed, documented below Social history: Reviewed, documented below Medications: Reviewed, as documented below EXAMINATION: Vital sigans= Reviewed and documented below GENERAL DESCRIPTION: Elderly male lying in bed, no distress. No tachypnea or accessory muscle of respiration use. HEENT: Shows Pallor , no scleral icterus. Oral mucous membrane is dry. NECK: Trachea central, no thyromegaly. LUNGS: Unlabored breathing. Decreased breath sound at the base. No wheeze or crackle. HEART: S1, S2, regular rate and rhythm. ABDOMEN: Soft, mild distention and tenderness , guarding or rigidity EXTREMITIES: No edema of feet. SKIN: No rash, no masses palpable. NEUROLOGICAL: The patient is lethargic orientation but undetermined LABS AND RADIOLOGY: Reviewed results see below Assessment : 1-patient presented to hospital with weakness shortness of breath and this patient did have evidence of left-sided effusion patient with no fever did have mildly elevated white count with abdominal distention symptoms are more like related to his ileus but no evidence of any mechanical small bowel obstruction and will need to call for the enteric gram-negative both aerobes and anaerobes. 2patient with a positive Covid test however symptom has been going on for more than 2 weeks and a chest x-ray showing mostly effusion not the groundglass opacities pathognomonic forr Covid pneumonia treatment is supportive 3-positive blood culture with gram-positive cocci question of skin contaminant versus pathogen 4-renal insufficiency and high risk of nephrotoxicity Plan: 1-patient is started on cefepime and Flagyl to cover for the intra- abdominal pathogen 2-vancomycin pharmacy to dose with a target trough of 15 while watching kidney function and Vanco trough closely. 3-droplet isolation We will follow on clinical condition and cultures to further adjust medication if needed Thank you for this consultation we will follow the patient along with you Past Medical History Past Medical History: Asthma, CVA/TIA, Diabetes Mellitus, Deep Vein Thrombosis (DVT), GERD/Reflux, Osteoarthritis (OA), Skin Disorder Additional Past Medical History / Comment(s): HX OF KIDNEY STONES, CROHNS DISEASE, HX OF BLOOD CLOT RT ARM AND BEHIND RT KNEE, TIA/seizure/brain bleed 08/2016, see Dr Wright H&P, "spots of dry skin", hx anemia, september 2018 stone removed L kidney History of Any Multi-Drug Resistant Organisms: MRSA Year Discovered:: 2006 MDRO Source:: nose Past Surgical History: Appendectomy, Back Surgery, Bowel Resection, Cholecystectomy, Heart Catheterization, Prostate Surgery Additional Past Surgical History / Comment(s): BOWEL RESECTION X 5, SPINAL SURGERIES X3, LEFT LOBECTOMY. lithotripsy, TURP, neck fusion. Past Anesthesia/Blood Transfusion Reactions: No Reported Reaction Past Psychological History: No Psychological Hx Reported Smoking Status: Former smoker Past Alcohol Use History: None Reported Additional Past Alcohol Use History / Comment(s): quit smoking 2005, smoked for > 30 yrs. 1-2 PPD Past Drug Use History: None Reported - Past Family History Mother Family Medical History: Deep Vein Thrombosis (DVT) Medications and Allergies Home Medications Medication Instructions Recorded Confirmed Type levETIRAcetam [Keppra] 500 mg PO DAILY 02/22/17 03/29/21 History levETIRAcetam [Keppra] 1,000 mg PO HS 03/10/17 03/29/21 History Nitroglycerin Sl Tabs [Nitrostat] 0.4 mg SL Q5M PRN 04/26/17 03/29/21 History Albuterol Sulfate [Albuterol 2 puff INHALATION RT-Q4H PRN 01/21/20 03/29/21 History Sulfate Hfa] Insulin Lispro [humaLOG Kwikpen] See Protocol SQ AC-TID 01/21/20 03/29/21 History Budesonide/Formoterol Fumarate 2 puff INHALATION RT-BID 05/08/20 03/29/21 History [Symbicort 160-4.5 Mcg Inhaler] Pantoprazole Sodium [Protonix] 40 mg PO DAILY 05/08/20 03/29/21 History Atorvastatin [Lipitor] 20 mg PO DAILY 12/01/20 03/29/21 History Baclofen [Lioresal] 20 mg PO BID 12/01/20 03/29/21 History Certolizumab Pegol [Cimzia] 400 mg SQ Q28D 12/01/20 03/29/21 History Nortriptyline HCl [Pamelor] 10 mg PO BID 12/01/20 03/29/21 History Insulin Glargine,Hum.rec.anlog 25 unit SQ HS #0 12/09/20 03/29/21 Rx [Lantus Solostar Pen] Ciprofloxacin HCl [Cipro] 500 mg PO BID 10 Days #20 tab 03/19/21 03/29/21 Rx Insulin Lispro [humaLOG Kwikpen] 5 unit SQ AC-TID 03/29/21 03/29/21 History Allergies Allergy/AdvReac Type Severity Reaction Status Date / Time aspirin Allergy Swelling Verified 03/29/21 13:44 ondansetron HCl [From Zofran] Allergy Unknown Verified 03/29/21 13:44 penicillin G Allergy Rash/Hives Verified 03/29/21 13:44 venom-wasp [Wasp Venom] Allergy Anaphylaxis Verified 03/29/21 13:44 nalbuphine HCl [From Nubain] AdvReac Vomiting Verified 03/29/21 13:44 Physical Exam Vitals: Vital Signs Temp Pulse Pulse Resp BP BP Pulse Ox 03/30/21 10:08 98.6 F 80 18 104/74 92 L 03/30/21 09:28 98 03/30/21 08:32 20 03/30/21 06:00 97.1 F L 79 16 93/59 100 03/30/21 03:22 97.6 F 88 97/68 97 03/29/21 17:57 78 20 102/72 99 03/29/21 17:20 81 18 100/83 99 03/29/21 15:46 84 20 94/70 97 Intake and Output 03/29/21 03/30/21 03/30/21 22:59 06:59 14:59 Intake Total 200 Balance 200 Intake: Oral 200 Other: # Voids 1 1 Weight 89.811 kg Results CBC & Chem 7: 03/30/21 06:37 03/30/21 18:58 Labs: Abnormal Lab Results - Last 24 Hours (Table) 03/29/21 03/29/21 03/29/21 Range/Units 13:10 16:40 16:40 WBC 12.9 H (3.8-10.6) k/uL RDW 16.3 H (11.5-15.5) % Neutrophils # (1.3-7.7) k/uL PT 12.2 H (9.0-12.0) sec INR 1.2 H (<1.2) APTT 20.7 L (22.0-30.0) sec D-Dimer 0.63 H (<0.60) mg/L FEU Potassium (3.5-5.1) mmol/L Chloride (98-107) mmol/L Carbon Dioxide (22-30) mmol/L BUN (9-20) mg/dL Creatinine (0.66-1.25) mg/dL Glucose (74-99) mg/dL POC Glucose (mg/dL) (75-99) mg/dL Alkaline Phosphatase (38-126) U/L Total Protein (6.3-8.2) g/dL SARS-CoV-2 (PCR) Detected A (Not Detectd) 03/29/21 03/29/21 03/30/21 Range/Units 20:33 22:59 06:37 WBC 12.2 H (3.8-10.6) k/uL RDW 17.2 H (11.5-15.5) % Neutrophils # 10.2 H (1.3-7.7) k/uL PT (9.0-12.0) sec INR (<1.2) APTT (22.0-30.0) sec D-Dimer (<0.60) mg/L FEU Potassium 3.1 L (3.5-5.1) mmol/L Chloride (98-107) mmol/L Carbon Dioxide 11 L (22-30) mmol/L BUN 79 H (9-20) mg/dL Creatinine 2.99 H (0.66-1.25) mg/dL Glucose 243 H (74-99) mg/dL POC Glucose (mg/dL) 209 H (75-99) mg/dL Alkaline Phosphatase 173 H (38-126) U/L Total Protein (6.3-8.2) g/dL SARS-CoV-2 (PCR) (Not Detectd) 03/30/21 03/30/21 03/30/21 Range/Units 06:37 07:57 11:44 WBC (3.8-10.6) k/uL RDW (11.5-15.5) % Neutrophils # (1.3-7.7) k/uL PT (9.0-12.0) sec INR (<1.2) APTT (22.0-30.0) sec D-Dimer (<0.60) mg/L FEU Potassium 3.2 L (3.5-5.1) mmol/L Chloride 108 H (98-107) mmol/L Carbon Dioxide 12 L (22-30) mmol/L BUN 81 H (9-20) mg/dL Creatinine 3.37 H (0.66-1.25) mg/dL Glucose 271 H (74-99) mg/dL POC Glucose (mg/dL) 297 H 333 H (75-99) mg/dL Alkaline Phosphatase 197 H (38-126) U/L Total Protein 8.4 H (6.3-8.2) g/dL SARS-CoV-2 (PCR) (Not Detectd) 12/19/21 Range/Units 13:07 WBC (3.8-10.6) k/uL RDW (11.5-15.5) % Neutrophils # (1.3-7.7) k/uL PT (9.0-12.0) sec INR (<1.2) APTT (22.0-30.0) sec D-Dimer (<0.60) mg/L FEU Potassium (3.5-5.1) mmol/L Chloride (98-107) mmol/L Carbon Dioxide (22-30) mmol/L BUN (9-20) mg/dL Creatinine (0.66-1.25) mg/dL Glucose (74-99) mg/dL POC Glucose (mg/dL) 279 H (75-99) mg/dL Alkaline Phosphatase (38-126) U/L Total Protein (6.3-8.2) g/dL SARS-CoV-2 (PCR) (Not Detectd)
[2021-03-31] MEDS ORDERED: CEFEPIME 2 GM in SODIUM CHLORIDE 0.9% 100 ML IVPB SCH (09:00)
[2021-03-31] MEDS: metroNIDAZOLE 500 MG TAB PO SCH ×3 (09:23→19:46)
--- NOTE | 2021-03-31 09:27 | P.NPCON ---
History of Present Illness - Reason for Consult acute renal failure - History of Present Illness Reason for consultation: Acute kidney injury History of present illness: This time patient is a 65-year-old male seen in consultation for acute kidney injury. Patient's baseline creatinine is near 1. It was elevated at 2.99 on admission and was up to 3.61 as of yesterday. Patient presented to the hospital on 03/29/2021 with cough and shortness of breath going on for about 2 weeks. He denies chest pain or shortness of breath. He is currently resting in bed and is somewhat confused. He tested positive for coronavirus. Blood pressure is stable. However patient was hypotensive with systolic blood pressure in the 80s to 90s on admission. He is currently on 3 L nasal cannula. He's currently receiving normal saline at 75 mL an hour. He has a Curran catheter and urine output is documented as 600 mL since yesterday. No hydronephrosis was noted on CAT scan. Patient was noted to be quite acidotic yesterday and did receive 2 A of bicarb IV push. Potassium was also replaced. This morning labs are pending. Patient does have history of diabetes. I don't see any nonsteroidals and his home medication list. Vital signs are stable. General: Agitated. Confused. HEENT: On nasal cannula. LUNGS: Breath sounds decreased. HEART: Rate and Rhythm are regular. ABDOMEN: Soft, no distention. EXTREMITITES: No edema. Past Medical History Past Medical History: Asthma, CVA/TIA, Diabetes Mellitus, Deep Vein Thrombosis (DVT), GERD/Reflux, Osteoarthritis (OA), Skin Disorder Additional Past Medical History / Comment(s): HX OF KIDNEY STONES, CROHNS DISEASE, HX OF BLOOD CLOT RT ARM AND BEHIND RT KNEE, TIA/seizure/brain bleed 08/2016, see Dr Wright H&P, "spots of dry skin", hx anemia, september 2018 stone removed L kidney History of Any Multi-Drug Resistant Organisms: MRSA Date of last positivie culture/infection: 2006 MDRO Source:: nose Past Surgical History: Appendectomy, Back Surgery, Bowel Resection, Cholecystectomy, Heart Catheterization, Prostate Surgery Additional Past Surgical History / Comment(s): BOWEL RESECTION X 5, SPINAL SURGERIES X3, LEFT LOBECTOMY. lithotripsy, TURP, neck fusion. Past Anesthesia/Blood Transfusion Reactions: No Reported Reaction Past Psychological History: No Psychological Hx Reported Smoking Status: Former smoker Past Alcohol Use History: None Reported Additional Past Alcohol Use History / Comment(s): quit smoking 2005, smoked for > 30 yrs. 1-2 PPD Past Drug Use History: None Reported - Past Family History Mother Family Medical History: Deep Vein Thrombosis (DVT) Medications and Allergies Home Medications Medication Instructions Recorded Confirmed Type levETIRAcetam [Keppra] 500 mg PO DAILY 02/22/17 03/29/21 History levETIRAcetam [Keppra] 1,000 mg PO HS 03/10/17 03/29/21 History Nitroglycerin Sl Tabs [Nitrostat] 0.4 mg SL Q5M PRN 04/26/17 03/29/21 History Albuterol Sulfate [Albuterol 2 puff INHALATION RT-Q4H PRN 01/21/20 03/29/21 History Sulfate Hfa] Insulin Lispro [humaLOG Kwikpen] See Protocol SQ AC-TID 01/21/20 03/29/21 History Budesonide/Formoterol Fumarate 2 puff INHALATION RT-BID 05/08/20 03/29/21 History [Symbicort 160-4.5 Mcg Inhaler] Pantoprazole Sodium [Protonix] 40 mg PO DAILY 05/08/20 03/29/21 History Atorvastatin [Lipitor] 20 mg PO DAILY 12/01/20 03/29/21 History Baclofen [Lioresal] 20 mg PO BID 12/01/20 03/29/21 History Certolizumab Pegol [Cimzia] 400 mg SQ Q28D 12/01/20 03/29/21 History Nortriptyline HCl [Pamelor] 10 mg PO BID 12/01/20 03/29/21 History Insulin Glargine,Hum.rec.anlog 25 unit SQ HS #0 12/09/20 03/29/21 Rx [Lantus Solostar Pen] Ciprofloxacin HCl [Cipro] 500 mg PO BID 10 Days #20 tab 03/19/21 03/29/21 Rx Insulin Lispro [humaLOG Kwikpen] 5 unit SQ AC-TID 03/29/21 03/29/21 History Allergies Allergy/AdvReac Type Severity Reaction Status Date / Time aspirin Allergy Swelling Verified 03/29/21 13:44 ondansetron HCl [From Zofran] Allergy Unknown Verified 03/29/21 13:44 penicillin G Allergy Rash/Hives Verified 03/29/21 13:44 venom-wasp [Wasp Venom] Allergy Anaphylaxis Verified 03/29/21 13:44 nalbuphine HCl [From Nubain] AdvReac Vomiting Verified 03/29/21 13:44 Physical Exam Vitals: Vital Signs Temp Pulse Resp BP Pulse Ox 03/31/21 08:24 94 L 03/31/21 05:49 97.8 F 77 18 157/72 98 03/31/21 02:30 98.2 F 84 127/80 100 03/30/21 21:00 99 03/30/21 20:00 98.4 F 82 19 129/74 100 03/30/21 17:48 98.2 F 78 16 118/89 100 03/30/21 16:24 77 18 126/79 100 03/30/21 15:10 97.4 F L 80 18 101/66 100 03/30/21 10:08 98.6 F 80 18 104/74 92 L 03/30/21 09:28 98 Intake and Output 03/30/21 03/31/21 03/31/21 22:59 06:59 14:59 Output Total 300 300 Balance -300 -300 Output: Urine 300 300 Other: Voiding Method Indwelling Catheter Results - Lab Results Most recent lab results ABG pH 7.40 (7.35-7.45) 03/30/21 13:29 ABG pCO2 16 mmHg (35-45) L* 03/30/21 13:29 ABG pO2 180 mmHg (83-108) H 03/30/21 13:29 ABG HCO3 10 mmol/L (21-25) L* 03/30/21 13:29 ABG O2 Saturation 98.7 % (94-97) H 03/30/21 13:29 Calcium 9.1 mg/dL (8.4-10.2) 03/30/21 18:58 03/30/21 06:37 03/30/21 18:58 Assessment and Plan Plan: Assessment: 1. Acute kidney injury secondary to ATN secondary to severe sepsis. Baseline creatinine near 1 and up to 3.6 on yesterday. 2. Acute hypoxic respiratory failure secondary to COVID-19 pneumonia. 3. Hypokalemia from poor intake. Replace. 4. Respiratory alkalosis and metabolic acidosis. 5. Diabetes mellitus. 6. Staph epi bacteremia. Possible contamination. Infectious disease following. Plan: Maintain normal saline. Maintain Curran catheter. Strict I's and O's. Follow-up morning labs. Check urinalysis. Check renal ultrasound. Continue to assess for potential need for renal replacement therapy. Thank you for the consultation. I will continue to follow the patient with you during his hospital stay.
--- NOTE | 2021-03-31 10:06 | US ---
EXAMINATION TYPE: US kidneys/renal and bladder DATE OF EXAM: 03/31/2021 COMPARISON: CT yesterday. CLINICAL HISTORY: nanci. EXAM MEASUREMENTS: Right Kidney: 11.6x6.5x5.6 cm Left Kidney: 11.1x5.6x6.5 cm Difficult due to uncooperative patient. Right Kidney: Inferior pole calcification measuring 1.4cm Left Kidney: Left inferior pole calcification measuring 0.5cm Bladder: Curran IMPRESSION: Nonobstructing bilateral nephrolithiasis.
--- NOTE | 2021-03-31 10:20 | XR ---
EXAMINATION TYPE: XR chest 1V portable DATE OF EXAM: 03/31/2021 COMPARISON: 03/29/2021 HISTORY: Cough TECHNIQUE: Single frontal view of the chest is obtained. FINDINGS: Postsurgical change overlying the cervical spine. There is bibasilar subsegmental consolid ation with pleural thickening or tiny effusions. Underlying COPD noted. Heart size normal. Atheroscle rotic change aorta. No pneumothorax. Postsurgical changes involving the left hilum. IMPRESSION: Bilateral lower lobe infiltrate and small effusion. Correlate for COPD.
[2021-03-31 11:06] LABS: Basophils # (A) 0.02 X 10*3/uL (0.00-0.10); Basophils % (A) 0.1 %; Eosinophils # (A) 0.01 X 10*3/uL (0.04-0.35); Eosinophils % (A) 0.1 %; HCT 30.1 % (39.6-50.0); HGB 10.4 g/dL (13.0-17.0); Lymphocytes # (A) 2.44 X 10*3/uL (0.90-5.00); Lymphocytes % (A) 16.8 %; MCH 31.4 pg (27.0-32.0); MCHC 34.6 g/dL (32.0-37.0); MCV 90.9 fL (80.0-97.0); Mean Platelet Volume 9.9 fL (9.5-12.2); Monocytes % (A) 7.6 %; Neutrophils # (A) 10.77 X 10*3/uL (1.80-7.70); Neutrophils % (A) 74.3 %; Platelet Count 292 X 10*3/uL (140-440); RBC 3.31 X 10*6/uL (4.40-5.60); RDW 15.7 % (11.5-14.5)
[2021-03-31 11:40] LABS: ALT 22 U/L (10-49); AST 19 U/L (14-35); African American GFR (CKD) 25.6 (60.0-200.0); Albumin 3.5 g/dL (3.8-4.9); Albumin/Globulin Ratio 1.07 (1.60-3.17); Alkaline Phosphatase 135 U/L (41-126); BUN/Creat Ratio 27.71 Ratio (12.00-20.00); Blood Urea Nitrogen 78.7 mg/dL (9.0-27.0); Calcium 8.1 mg/dL (8.7-10.3); Carbon Dioxide 14.4 mmol/L (20.0-27.5); Chloride 115 mmol/L (96-109); Globulin 3.2 g/dL (1.6-3.3); Glucose 110 mg/dL (70-110); LDH 174 U/L (120-246); Non-African American GFR(CKD) 22.1 (60.0-200.0); Potassium 3.1 mmol/L (3.5-5.5); Sodium 144 mmol/L (135-145); Total Protein 6.7 g/dL (6.2-8.2)
[2021-03-31 11:44] LABS: C Reactive Protein <0.30 mg/dL (0.00-0.80)
[2021-03-31 12:01] LABS: Glucose,Whole Blood 156 mg/dL (75-99)
[2021-03-31 12:09] LABS: Appearance,Urine Cloudy (Clear); Bacteria,Urine Few /hpf; Bilirubin,Urine Negative (Negative); Blood,Urine Large (Negative); Color,Urine Yellow; Glucose,Urine (UA) Negative (Negative); Hyaline Casts,Urine 4 /lpf (0-2); Ketones,Urine Negative (Negative); Leukocyte Esterase,Urine Large (Negative); Mucus,Urine Rare /hpf; Nitrite,Urine Negative (Negative); Protein,Urine 1+ (Negative); RBC,Urine 54 /hpf (0-5); Specific Gravity,Urine 1.016 (1.001-1.035); Squamous Epithelial Cell,Urine <1 /hpf (0-4); Urobilinogen,Urine <2.0 mg/dL (<2.0); WBC,Urine >182 /hpf (0-5)
--- NOTE | 2021-03-31 12:14 | CT ---
EXAMINATION TYPE: CT brain wo con DATE OF EXAM: 03/31/2021 HISTORY: altered mental status CT DLP: 1143.4 mGycm. Automated Exposure Control for Dose Reduction was Utilized. TECHNIQUE: CT scan of the head is performed without contrast. COMPARISON: CT brain June 05, 2017. FINDINGS: There is no acute intracranial hemorrhage or midline shift identified. There is mild diff use ventricular and sulcal prominence consistent with diffuse age-related cerebral atrophy. Lombardi-whit e matter differentiation is fairly well maintained. New dependent fluid in the right maxillary sinus. Remainder paranasal sinuses are clear. Empty sella morphology is redemonstrated. IMPRESSION: No acute intracranial hemorrhage or midline shift. There is mild diffuse age-related ce rebral atrophy redemonstrated. New right acute maxillary sinusitis.
[2021-03-31] MEDS: POTASSIUM CHLORIDE ER 20 MEQ TAB.ER PO SCH ×2 (12:23→12:38)
[2021-03-31 12:40] LABS: ABG Base Excess -10.4 mmol/L; ABG HCO3 16 mmol/L (21-25); ABG PCO2 29 mmHg (35-45); ABG PH 7.33 (7.35-7.45); ABG PO2 140 mmHg (83-108); ABG TCO2 16 mmol/L (19-24); Allen Test Performed? Yes
[2021-03-31 13:01] LABS: INR 1.4 (<1.2); Prothrombin Time 13.9 sec (9.0-12.0)
--- NOTE | 2021-03-31 13:47 | P.PN ---
Subjective Progress Note Date: 03/31/21 68-year-old male patient with past medical history of Crohn's disease status post multiple bowel resections, history of recent hospitalization for acute kidney injury related to hypovolemia and small bowel obstruction, diabetes mellitus type 2, history of BPH status post TURP, remote history of smoking who presented to the emergency department on 03/29/2021 with complaints of weakness for the past 2 weeks. According to the ED record patient was also complaining of some dyspnea on presentation. He was having a difficult time walking across a room without getting very short of breath. He denied any chest pain, no fever or chills. He reports some yellow colored phlegm production. He is vaccinated with Artemio & Artemio vaccine, single dose. The dates are unknown, patient is a patient of Dr. Lorenz, he is short of breath, he is confused this morning, he is a poor historian. His chest x-ray on admission showed persistent small right pleural effusion with no other significant abnormality. Patient denies any chronic lung problems. He is on Symbicort at home on a regular basis, he was started on IV Solu-Medrol, azithromycin in the emergency department. In addition patient reportedly had extensive nausea, vomiting and diarrhea at home. She tested positive for COVID-19 in the emergency department, he is RSV and influenza A and B were negative, his renal function was significantly abnormal with evidence of acute kidney injury and the BUN of 79 and creatinine of 2.9, potassium level was 3.1, sodium was 137, right was 107, CO2 was 11, d-dimer 0.63, INR is 1.2, BUN of 12.9, hemoglobin of 14.4. Earlier this morning he was on room air, maintaining O2 saturations at 92-98%, afebrile, blood pressures were on the lower side with systolic in the 90s and diastolic in the 50s. During my evaluation patient is restless very confused, he is dyspneic, and this was a change from earlier exam according to the nursing staff. He required to be placed on supplemental oxygen and he was satting 82% on 3 L and FiO2 has subsequently been increased to 6 L. This morning's labs revealed worsening renal function, with BUN of 81 and creatinine 3.37, potassium is 3.2, CO2 is only 12. Abdomen is soft, nontender, the patient did have vomiting on midnight shift. Appears very dehydrated On 03/31/2021 patient seen in follow-up on medical surgical floor, he is lethargic, and he is confused, but appears to be in no acute distress. Currently on 3 L of oxygen pulse ox of 94-100%, he is afebrile, hemodynamically he is stable, breathing is nonlabored, lung sounds reveal diminished breath sounds at bilateral bases, no crackles. Indwelling Curran catheter has been placed, patient has produced 600 mL and urine output the last 24 hours. He remains on 0.9 normal saline at a rate of 75 ML per hour, he was fluid resuscitated yesterday with 2 L of IV fluid boluses. He has had no further nausea and vomiting overnight, CT of the abdomen and pelvis showed large bowel fluid levels consistent with ileus and diarrhea not significantly different from recent exam, and no evidence of mechanical bowel obstruction. There was minimal scarring and subsegmental atelectasis at the lung bases without change. Nephrology has been consulted, repeat blood gas today has been reviewed showing pO2 of 140, pCO2 of 29, and pH of 7.33, this was done and FiO2 of 20%, and this is an improved acid-base balance with residual metabolic acidosis. Overnight one of patient's blood cultures also showed gram-positive cocci in clusters, and patient was started on empiric antibiotics and he is currently on cefepime, vancomycin, and Flagyl. On today's labs, his white count is 14.5, hemoglobin is 10.4, INR is 1.4, sodium is 144, potassium is 3.1, chloride is 1:15, CO2 is 14.4, BUN is 78, creatinine is 2.8, slightly improved renal profile compared yesterday's level. Glucose level is 110, he Medrol has been discontinued and patient is currently on once daily dose of Decadron 6 mg daily. His AST and ALT are within normal limits, alk phos is improving and is down to 135. Procan SR level is 0.38, his urinalysis showed possibility of urinary tract infection. CT of the brain showed mild diffuse age-related cerebral atrophy Objective - Vital Signs Vital signs: Vital Signs Temp 97.6 F 03/31/21 10:31 Pulse 79 03/31/21 10:31 Resp 17 03/31/21 10:31 BP 125/70 03/31/21 10:31 Pulse Ox 100 12/20/21 10:31 Intake & Output 03/30/21 03/31/21 03/31/21 18:59 06:59 18:59 Intake Total 200 Output Total 300 300 Balance -100 -300 Intake: Oral 200 Output: Urine 300 300 Other: Voiding Method Indwelling Catheter Indwelling Catheter # Voids 1 - Exam GENERAL EXAM: Alert, very confused, restless, 65-year-old white male, on 3 L of oxygen pulse ox is 100%, mildly dyspneic HEAD: Normocephalic/atraumatic. EYES: Normal reaction of pupils, equal size. Conjunctiva pink, sclera white. NOSE: Clear with pink turbinates. MOUTH: dry oral mucous membranes THROAT: No erythema or exudates. NECK: No masses, no JVD, no thyroid enlargement, no adenopathy. CHEST: No chest wall deformity. Symmetrical expansion. LUNGS: Equal air entry with diminished breath sounds at bilateral bases, no crackles CVS: Regular rate and rhythm, normal S1 and S2, no gallops, no murmurs, no rubs ABDOMEN: Soft, nontender. No hepatosplenomegaly, normal bowel sounds, no guarding or rigidity. Midabdominal healed abdominal incision from previous history of Crohn's disease and bowel resections EXTREMITIES: No clubbing, no edema, no cyanosis, 2+ pulses and upper and lower extremities. MUSCULOSKELETAL: Muscle strength and tone normal. SPINE: No scoliosis or deformity SKIN: No rashes CENTRAL NERVOUS SYSTEM: Alert and oriented -3. No focal deficits, tone is normal in all 4 extremities. PSYCHIATRIC: Alert and oriented -2, confused, restless. - Labs CBC & Chem 7: 03/31/21 07:55 03/31/21 07:55 Labs: Abnormal Lab Results - Last 24 Hours (Table) 03/30/21 03/30/21 03/30/21 Range/Units 06:37 13:29 15:08 WBC (4.50-10.00) X 10*3/uL RBC (4.40-5.60) X 10*6/uL Hgb (13.0-17.0) g/dL Hct (39.6-50.0) % RDW (11.5-14.5) % Immature Gran # (0.00-0.04) X 10*3/uL Neutrophils # (1.80-7.70) X 10*3/uL Monocytes # (0.20-1.00) X 10*3/uL Eosinophils # (0.04-0.35) X 10*3/uL PT (9.0-12.0) sec INR (<1.2) ABG pH (7.35-7.45) ABG pCO2 16 L* (35-45) mmHg ABG pO2 180 H (83-108) mmHg ABG HCO3 10 L* (21-25) mmol/L ABG Total CO2 10 L (19-24) mmol/L ABG O2 Saturation 98.7 H (94-97) % Potassium (3.5-5.1) mmol/L Chloride (98-107) mmol/L Carbon Dioxide (22-30) mmol/L BUN (9-20) mg/dL Creatinine (0.66-1.25) mg/dL Est GFR (CKD-EPI)AfAm (60.0-200.0) Est GFR (CKD-EPI)NonAf (60.0-200.0) BUN/Creatinine Ratio (12.00-20.00) Ratio Glucose (74-99) mg/dL POC Glucose (mg/dL) 246 H (75-99) mg/dL Calcium (8.7-10.3) mg/dL Alkaline Phosphatase (41-126) U/L Albumin (3.8-4.9) g/dL Albumin/Globulin Ratio (1.60-3.17) g/dL Procalcitonin 0.38 H (0.02-0.09) ng/mL Urine Protein (Negative) Urine Blood (Negative) Ur Leukocyte Esterase (Negative) Urine RBC (0-5) /hpf Urine WBC (0-5) /hpf Urine WBC Clumps (None) /hpf Urine Bacteria (None) /hpf Hyaline Casts (0-2) /lpf Urine Mucus (None) /hpf 03/30/21 03/30/21 03/30/21 Range/Units 16:46 18:58 20:49 WBC (4.50-10.00) X 10*3/uL RBC (4.40-5.60) X 10*6/uL Hgb (13.0-17.0) g/dL Hct (39.6-50.0) % RDW (11.5-14.5) % Immature Gran # (0.00-0.04) X 10*3/uL Neutrophils # (1.80-7.70) X 10*3/uL Monocytes # (0.20-1.00) X 10*3/uL Eosinophils # (0.04-0.35) X 10*3/uL PT (9.0-12.0) sec INR (<1.2) ABG pH (7.35-7.45) ABG pCO2 (35-45) mmHg ABG pO2 (83-108) mmHg ABG HCO3 (21-25) mmol/L ABG Total CO2 (19-24) mmol/L ABG O2 Saturation (94-97) % Potassium 3.0 L (3.5-5.1) mmol/L Chloride 111 H (98-107) mmol/L Carbon Dioxide 11 L (22-30) mmol/L BUN 91 H (9-20) mg/dL Creatinine 3.61 H (0.66-1.25) mg/dL Est GFR (CKD-EPI)AfAm (60.0-200.0) Est GFR (CKD-EPI)NonAf (60.0-200.0) BUN/Creatinine Ratio (12.00-20.00) Ratio Glucose 224 H (74-99) mg/dL POC Glucose (mg/dL) 194 H 254 H (75-99) mg/dL Calcium (8.7-10.3) mg/dL Alkaline Phosphatase (41-126) U/L Albumin (3.8-4.9) g/dL Albumin/Globulin Ratio (1.60-3.17) g/dL Procalcitonin (0.02-0.09) ng/mL Urine Protein (Negative) Urine Blood (Negative) Ur Leukocyte Esterase (Negative) Urine RBC (0-5) /hpf Urine WBC (0-5) /hpf Urine WBC Clumps (None) /hpf Urine Bacteria (None) /hpf Hyaline Casts (0-2) /lpf Urine Mucus (None) /hpf 03/31/21 03/31/21 03/31/21 Range/Units 07:55 07:55 10:24 WBC 14.50 H (4.50-10.00) X 10*3/uL RBC 3.31 L (4.40-5.60) X 10*6/uL Hgb 10.4 L (13.0-17.0) g/dL Hct 30.1 L (39.6-50.0) % RDW 15.7 H (11.5-14.5) % Immature Gran # 0.16 H (0.00-0.04) X 10*3/uL Neutrophils # 10.77 H (1.80-7.70) X 10*3/uL Monocytes # 1.10 H (0.20-1.00) X 10*3/uL Eosinophils # 0.01 L (0.04-0.35) X 10*3/uL PT (9.0-12.0) sec INR (<1.2) ABG pH (7.35-7.45) ABG pCO2 (35-45) mmHg ABG pO2 (83-108) mmHg ABG HCO3 (21-25) mmol/L ABG Total CO2 (19-24) mmol/L ABG O2 Saturation (94-97) % Potassium 3.1 L (3.5-5.1) mmol/L Chloride 115 H (98-107) mmol/L Carbon Dioxide 14.4 L (22-30) mmol/L BUN 78.7 H (9-20) mg/dL Creatinine 2.8 H (0.66-1.25) mg/dL Est GFR (CKD-EPI)AfAm 25.6 L (60.0-200.0) Est GFR (CKD-EPI)NonAf 22.1 L (60.0-200.0) BUN/Creatinine Ratio 27.71 H (12.00-20.00) Ratio Glucose (74-99) mg/dL POC Glucose (mg/dL) (75-99) mg/dL Calcium 8.1 L (8.7-10.3) mg/dL Alkaline Phosphatase 135 H (41-126) U/L Albumin 3.5 L (3.8-4.9) g/dL Albumin/Globulin Ratio 1.07 L (1.60-3.17) g/dL Procalcitonin (0.02-0.09) ng/mL Urine Protein 1+ H (Negative) Urine Blood Large H (Negative) Ur Leukocyte Esterase Large H (Negative) Urine RBC 54 H (0-5) /hpf Urine WBC >182 H (0-5) /hpf Urine WBC Clumps Few H (None) /hpf Urine Bacteria Few H (None) /hpf Hyaline Casts 4 H (0-2) /lpf Urine Mucus Rare H (None) /hpf 03/31/21 03/31/21 03/31/21 Range/Units 11:58 12:32 12:39 WBC (4.50-10.00) X 10*3/uL RBC (4.40-5.60) X 10*6/uL Hgb (13.0-17.0) g/dL Hct (39.6-50.0) % RDW (11.5-14.5) % Immature Gran # (0.00-0.04) X 10*3/uL Neutrophils # (1.80-7.70) X 10*3/uL Monocytes # (0.20-1.00) X 10*3/uL Eosinophils # (0.04-0.35) X 10*3/uL PT 13.9 H (9.0-12.0) sec INR 1.4 H (<1.2) ABG pH 7.33 L (7.35-7.45) ABG pCO2 29 L (35-45) mmHg ABG pO2 140 H (83-108) mmHg ABG HCO3 16 L (21-25) mmol/L ABG Total CO2 16 L (19-24) mmol/L ABG O2 Saturation 98.0 H (94-97) % Potassium (3.5-5.1) mmol/L Chloride (98-107) mmol/L Carbon Dioxide (22-30) mmol/L BUN (9-20) mg/dL Creatinine (0.66-1.25) mg/dL Est GFR (CKD-EPI)AfAm (60.0-200.0) Est GFR (CKD-EPI)NonAf (60.0-200.0) BUN/Creatinine Ratio (12.00-20.00) Ratio Glucose (74-99) mg/dL POC Glucose (mg/dL) 156 H (75-99) mg/dL Calcium (8.7-10.3) mg/dL Alkaline Phosphatase (41-126) U/L Albumin (3.8-4.9) g/dL Albumin/Globulin Ratio (1.60-3.17) g/dL Procalcitonin (0.02-0.09) ng/mL Urine Protein (Negative) Urine Blood (Negative) Ur Leukocyte Esterase (Negative) Urine RBC (0-5) /hpf Urine WBC (0-5) /hpf Urine WBC Clumps (None) /hpf Urine Bacteria (None) /hpf Hyaline Casts (0-2) /lpf Urine Mucus (None) /hpf Microbiology - Last 24 Hours (Table) 03/29/21 16:40 Blood Culture Gram Stain - Preliminary Blood Blood Culture - Preliminary Staphylococcus epidermidis 03/29/21 16:40 Blood Culture - Preliminary Blood No Growth after 24 hours 03/29/21 16:40 Blood Culture - Final Blood Assessment and Plan Plan: Assessment: #1. Acute COVID-19 infection, without evidence of pneumonia on the chest x-ray, chest x-ray shows persistent small right pleural effusion without other significant abnormality. Onset of symptoms is approximately 2 weeks ago. Patient is vaccinated with Artemio & Artemio vaccine. Not a candidate for Remdesivir related to length of symptoms, no evidence of pneumonia on the chest x-ray and acute kidney injury #2. Nausea and vomiting, CT of abdomen showed possible ileus, but no evidence of mechanical obstruction #3. Acute kidney injury related to ATN, and severe dehydration, improving #4. Acute metabolic acidosis, related to severe dehydration and ATN and acute kidney injury #5. Previous history of Crohn's disease with multiple bowel resections #6. Recent hospitalization in November for dehydration, small bowel obstruction, and acute kidney injury #7. Possible component of chronic kidney disease, most recently recovered from his recent episode in November, was seen by nephrology during that admission #8. Questionable history of COPD, remote history of smoking, patient denies any chronic lung disease #9. Confusion, dyspnea, possibly related to metabolic encephalopathy #10. Diabetes mellitus type 2 #11. History of CVA/TIA #12. GERD/reflux #13. History of back surgery #14. Possible history of seizures, patient has Keppra on his home med list Plan: Continue Decadron 6 mg daily Continue inhaled bronchodilators Patient has been started on antibiotics by ID service for possibility of urinary tract infection Renal profile is improving, Blood gas has been reviewed showing improvement metabolic acidosis Maintaining safety precautions CT of the abdomen showed ileus but no evidence of obstruction Bicarb infusion has been started We'll continue to follow his condition, Insert PICC line for better IV access Discontinue foot IV I performed a history & physical examination of the patient and discussed their management with my nurse practitioner, Malini Wooten. I reviewed the nurse marilu avalos's note and agree with the documented findings and plan of care. Lung sounds are positive for dim breath sounds throughout the lung sood. The findings and the impression was discussed with the patient. I attest to the documentation by the nurse practitioner. Time with Patient: Less than 30
[2021-03-31] MEDS: DEXTROSE 5% IN WATER 1,000 ML with SODIUM BICARB (1 MEQ/ML) 150 ML IV SCH (14:32)
--- NOTE | 2021-03-31 14:39 | P.PN ---
Subjective Progress Note Date: 03/31/21 03/31/2021 Patient is evaluated today resting in bed. He is alert 0 he is lethargic and also is agitated at times. However there is no respiratory distress and his oxygen saturation was actually 97% on room air however he 2 L oxygen on him. He was able to tell me is that he does have a headache. Pupils are dilated they are reactive to light and accommodating to distance. Apparently during this hospital stay patient has had increasing confusion and family is concerned, we did order a brain CT without contrast today there was no acute intracranial hemorrhage or midline shift there is mild diffuse age-related cerebral atrophy redemonstrated. There is a new right acute maxillary sinusitis. Chest x-ray today shows bilateral lower lobe infiltrate and small effusion and correlation for COPD. Abdomen/Pelvis US shows nonobstructing bilateral nephrolithiasis. Patient was evaluated by nephrology today. Patient is also being followed closely by pulmonary services. Repeat blood gases today, additional labs include white count of 14.5, hemoglobin 10.4, INR 1.4, potassium 3.1, chloride 115, CO2 14.4, BUN 78.7, creatinine 2.8, glucose in the 150s, alk phos 135, CRP less than 0.30, LDH 174, pro calcitonin 0.38. Urinalysis today shows 1+ protein, large ketones, large leukocyte esterase, greater than 182 WBCs, few bacteria. Blood culture performed on the show Staphylococcus epidermidis, however 1 taken at the same time as negative. This is most likely contamination. Patient continues on IV cefepime, zinc, vitamin C, vitamin D, IV Decadron daily, Lovenox. He is on D5 with sodium bicarbonate at 75 mL per hour. Vanco was discontinued. Prognosis is guarded for this patient. Review of system is difficult to assess as patient is lethargic and uncooperative at times. He did complain of a headache when asked if he is having any pain anywhere. All inpatient medications were reviewed and appropriate changes in these medications as dictated in the interval history and assessment and plan. PHYSICAL EXAMINATION: GENERAL: The patient is alert and oriented x0-1, he does not appear to be in distress, he is lethargic and agitated. Well developed, well nourished. HEENT: Pupils are round and equally reacting to light. Pupils are dilated to 4mm. EOMI. No scleral icterus. No conjunctival pallor. Normocephalic, atraumatic. No pharyngeal erythema. No thyromegaly. CARDIOVASCULAR: S1 and S2 present. No murmurs, rubs, or gallops. PULMONARY: Chest is clear to auscultation, no wheezing or crackles. Diminished aeration. ABDOMEN: Soft, nontender, nondistended, normoactive bowel sounds. No palpable organomegaly. MUSCULOSKELETAL: No joint swelling or deformity. EXTREMITIES: No cyanosis, clubbing, or pedal edema. NEUROLOGICAL: Gross neurological examination did not reveal any focal deficits. SKIN: No rashes. Kerlex wrapped around foot where IV access is. Assessment and plan Assessment Acute COVID-19 infection, there is no evidence of pneumonia on chest x-ray he is maintaining on 2-3 L nasal cannula Respiratory alkalosis secondary to above Acute metabolic encephalopathy related to COVID-19 infection as well as component of metabolic acidosis secondary to dehydration, uremia. Nausea and vomiting, improving, CT of abdomen showed possible ileus, no evidence for mechanical obstruction Acute kidney injury related to acute tubular necrosis secondary to dehydration w hich is slightly improving, on IV fluids Acute metabolic acidosis secondary to severe dehydration as well as kidney injury and tubular necrosis Hypokalemia, secondary to poor oral intake Positive blood culture with staph epi, possible contamination History of Crohn's disease History of bowel resection Possible history of COPD, demonstrated on x-ray, normal history of smoking History of CVA/TIA with residual weakness Diabetes Mellitus type 2 with hyperglycemia History of DVT History of seizure/brain bleed in 2017 GERD GI Prophylaxis: Protonix DVT Prophylaxis: Lovenox Plan Continue on Decadron, zinc, vitamins Continue on IV antibiotics, bicarb infusion Replace potassium Neuro checks Continue all other supportive care Multiple consultations including ID pulmonary and nephrology PICC line insertion Prognosis guarded for this patient Objective - Vital Signs Vital signs: Vital Signs Temp 97.8 F 03/31/21 05:49 Pulse 77 03/31/21 05:49 Resp 18 03/31/21 05:49 BP 157/72 03/31/21 05:49 Pulse Ox 94 L 03/31/21 08:24 Intake & Output 03/30/21 03/31/21 03/31/21 18:59 06:59 18:59 Intake Total 200 Output Total 300 300 Balance -100 -300 Intake: Oral 200 Output: Urine 300 300 Other: Voiding Method Indwelling Catheter # Voids 1 - Labs CBC & Chem 7: 03/31/21 07:55 03/31/21 07:55 Labs: Abnormal Lab Results - Last 24 Hours (Table) 03/30/21 03/30/21 03/30/21 Range/Units 06:37 11:44 13:07 ABG pCO2 (35-45) mmHg ABG pO2 (83-108) mmHg ABG HCO3 (21-25) mmol/L ABG Total CO2 (19-24) mmol/L ABG O2 Saturation (94-97) % Potassium (3.5-5.1) mmol/L Chloride (98-107) mmol/L Carbon Dioxide (22-30) mmol/L BUN (9-20) mg/dL Creatinine (0.66-1.25) mg/dL Glucose (74-99) mg/dL POC Glucose (mg/dL) 333 H 279 H (75-99) mg/dL Procalcitonin 0.38 H (0.02-0.09) ng/mL 03/30/21 03/30/21 03/30/21 Range/Units 13:29 15:08 16:46 ABG pCO2 16 L* (35-45) mmHg ABG pO2 180 H (83-108) mmHg ABG HCO3 10 L* (21-25) mmol/L ABG Total CO2 10 L (19-24) mmol/L ABG O2 Saturation 98.7 H (94-97) % Potassium (3.5-5.1) mmol/L Chloride (98-107) mmol/L Carbon Dioxide (22-30) mmol/L BUN (9-20) mg/dL Creatinine (0.66-1.25) mg/dL Glucose (74-99) mg/dL POC Glucose (mg/dL) 246 H 194 H (75-99) mg/dL Procalcitonin (0.02-0.09) ng/mL 03/30/21 03/30/21 Range/Units 18:58 20:49 ABG pCO2 (35-45) mmHg ABG pO2 (83-108) mmHg ABG HCO3 (21-25) mmol/L ABG Total CO2 (19-24) mmol/L ABG O2 Saturation (94-97) % Potassium 3.0 L (3.5-5.1) mmol/L Chloride 111 H (98-107) mmol/L Carbon Dioxide 11 L (22-30) mmol/L BUN 91 H (9-20) mg/dL Creatinine 3.61 H (0.66-1.25) mg/dL Glucose 224 H (74-99) mg/dL POC Glucose (mg/dL) 254 H (75-99) mg/dL Procalcitonin (0.02-0.09) ng/mL Microbiology - Last 24 Hours (Table) 03/29/21 16:40 Blood Culture Gram Stain - Preliminary Blood Blood Culture - Preliminary Staphylococcus epidermidis 03/29/21 16:40 Blood Culture - Preliminary Blood No Growth after 24 hours 03/29/21 16:40 Blood Culture - Final Blood Assessment and Plan Time with Patient: Greater than 30
[2021-03-31] MEDS ORDERED: POTASSIUM CHLORIDE 10 MEQ in WATER FOR INJECTION 1 100ML.BAG IVPB SCH (15:00)
[2021-03-31] MEDS ORDERED: VANCOMYCIN 1,750 MG in SODIUM CHLORIDE 0.9% 500 ML 500 ML IVPB ONE (16:00)
[2021-03-31 17:01] LABS: Glucose,Whole Blood 212 mg/dL (75-99)
[2021-03-31] MEDS: POTASSIUM CHLORIDE 10 MEQ in WATER FOR INJECTION 1 100ML.BAG IVPB SCH ×2 (18:01→20:35)
[2021-03-31] MEDS: levETIRAcetam IV 1,000 MG in SALINE 1 100ML.BAG IVPB SCH (20:09)
[2021-03-31 20:18] LABS: Glucose,Whole Blood 143 mg/dL (75-99)
[2021-03-31] MEDS: INSULIN DETEMIR (LEVEMIR) 100 UNIT/ML SYR SQ SCH (20:37)
[2021-03-31] MEDS: BACLOFEN 10 MG TAB PO PRN (20:44)
[2021-03-31] MEDS: CEFEPIME 1 GM in SODIUM CHLORIDE 0.9% 50 ML IVPB SCH (21:55)
--- NOTE | 2021-03-31 23:19 | PN ---
PROGRESS NOTE DATE OF SERVICE: 03/31/2021 REASON FOR FOLLOWUP: 1. Positive Covid test. 2. Small bowel ileus. 3. Positive blood culture. INTERVAL HISTORY: Patient is afebrile. The patient is currently breathing comfortably on room air. Slightly lethargic and unable to give any history. No vomiting or diarrhea reported by nursing staff. PHYSICAL EXAMINATION: Blood pressure 128/73 with a pulse of 79, temperature 97.4, he is 98% on room air. General description is an elderly male lying in bed in no distress. Respiratory system: Unlabored breathing, decreased intensity in breath sounds. No wheeze. Heart S1, S2. Regular rate and rhythm. Abdomen: Soft, mildly tender. No guarding. No rigidity. Extremities are no edema of the feet. LABS: Hemoglobin is 10.4, white count 14.50, BUN of 78, creatinine is 2.8. Blood culture with Staph epi. DIAGNOSTIC IMPRESSION/PLAN: 1. This patient with positive blood culture, Staph epi likely skin contamination. Repeat culture so far negative. No need for vancomycin. 2. Patient with ileus, also with positive UA covered with cefepime and Flagyl to continue while monitoring clinical course closely. Continue supportive care. MMODL / IJN: [id number] /
[2021-04-01] MEDS: POTASSIUM CHLORIDE 10 MEQ in WATER FOR INJECTION 1 100ML.BAG IVPB SCH ×2 (02:03→03:09)
[2021-04-01] MEDS: ALBUTEROL HFA INHALER INHALATION SCH ×6 (03:22→20:05)
[2021-04-01] MEDS: DEXTROSE 5% IN WATER 1,000 ML with SODIUM BICARB (1 MEQ/ML) 150 ML IV SCH (04:55)
[2021-04-01 07:06] LABS: Glucose,Whole Blood 87 mg/dL (75-99)
[2021-04-01] MEDS: INSULIN ASPART (NovoLOG) 100 UNIT/ML VIAL SQ SCH ×7 (07:27→21:36)
[2021-04-01] MEDS: SYMBICORT 160-4.5 MCG INHALER INHALATION SCH ×2 (07:42→20:05)
--- NOTE | 2021-04-01 09:21 | P.PN ---
Subjective Patient is seen in follow for acute kidney injury. Creatinine 2.8 yesterday. Maintain on bicarb drip. Currently on room air. Blood pressure stable. Nonoliguric. Not a reliable historian. Vital signs are stable. HEENT: Head exam is unremarkable. LUNGS: Breath sounds decreased. HEART: Rate and Rhythm are regular. ABDOMEN: Soft, no distention. EXTREMITITES: No edema. Objective - Vital Signs Vital signs: Vital Signs Temp 98.5 F 04/01/21 05:02 Pulse 85 04/01/21 05:02 Resp 18 04/01/21 05:02 BP 134/76 04/01/21 05:02 Pulse Ox 94 L 04/01/21 07:43 Intake & Output 03/31/21 04/01/21 04/01/21 18:59 06:59 18:59 Output Total 650 1000 Balance -650 -1000 Output: Urine 650 1000 Other: Voiding Method Indwelling Catheter Indwelling Catheter - Labs CBC & Chem 7: 03/31/21 07:55 03/31/21 15:27 Labs: Abnormal Lab Results - Last 24 Hours (Table) 03/31/21 03/31/21 03/31/21 Range/Units 07:55 07:55 10:24 WBC 14.50 H (4.50-10.00) X 10*3/uL RBC 3.31 L (4.40-5.60) X 10*6/uL Hgb 10.4 L (13.0-17.0) g/dL Hct 30.1 L (39.6-50.0) % RDW 15.7 H (11.5-14.5) % Immature Gran # 0.16 H (0.00-0.04) X 10*3/uL Neutrophils # 10.77 H (1.80-7.70) X 10*3/uL Monocytes # 1.10 H (0.20-1.00) X 10*3/uL Eosinophils # 0.01 L (0.04-0.35) X 10*3/uL PT (9.0-12.0) sec INR (<1.2) ABG pH (7.35-7.45) ABG pCO2 (35-45) mmHg ABG pO2 (83-108) mmHg ABG HCO3 (21-25) mmol/L ABG Total CO2 (19-24) mmol/L ABG O2 Saturation (94-97) % Potassium 3.1 L (3.5-5.5) mmol/L Chloride 115 H (96-109) mmol/L Carbon Dioxide 14.4 L (20.0-27.5) mmol/L BUN 78.7 H (9.0-27.0) mg/dL Creatinine 2.8 H (0.6-1.5) mg/dL Est GFR (CKD-EPI)AfAm 25.6 L (60.0-200.0) Est GFR (CKD-EPI)NonAf 22.1 L (60.0-200.0) BUN/Creatinine Ratio 27.71 H (12.00-20.00) Ratio POC Glucose (mg/dL) (75-99) mg/dL Calcium 8.1 L (8.7-10.3) mg/dL Alkaline Phosphatase 135 H (41-126) U/L Albumin 3.5 L (3.8-4.9) g/dL Albumin/Globulin Ratio 1.07 L (1.60-3.17) g/dL Urine Protein 1+ H (Negative) Urine Blood Large H (Negative) Ur Leukocyte Esterase Large H (Negative) Urine RBC 54 H (0-5) /hpf Urine WBC >182 H (0-5) /hpf Urine WBC Clumps Few H (None) /hpf Urine Bacteria Few H (None) /hpf Hyaline Casts 4 H (0-2) /lpf Urine Mucus Rare H (None) /hpf 03/31/21 03/31/21 03/31/21 Range/Units 11:58 12:32 12:39 WBC (4.50-10.00) X 10*3/uL RBC (4.40-5.60) X 10*6/uL Hgb (13.0-17.0) g/dL Hct (39.6-50.0) % RDW (11.5-14.5) % Immature Gran # (0.00-0.04) X 10*3/uL Neutrophils # (1.80-7.70) X 10*3/uL Monocytes # (0.20-1.00) X 10*3/uL Eosinophils # (0.04-0.35) X 10*3/uL PT 13.9 H (9.0-12.0) sec INR 1.4 H (<1.2) ABG pH 7.33 L (7.35-7.45) ABG pCO2 29 L (35-45) mmHg ABG pO2 140 H (83-108) mmHg ABG HCO3 16 L (21-25) mmol/L ABG Total CO2 16 L (19-24) mmol/L ABG O2 Saturation 98.0 H (94-97) % Potassium (3.5-5.5) mmol/L Chloride (96-109) mmol/L Carbon Dioxide (20.0-27.5) mmol/L BUN (9.0-27.0) mg/dL Creatinine (0.6-1.5) mg/dL Est GFR (CKD-EPI)AfAm (60.0-200.0) Est GFR (CKD-EPI)NonAf (60.0-200.0) BUN/Creatinine Ratio (12.00-20.00) Ratio POC Glucose (mg/dL) 156 H (75-99) mg/dL Calcium (8.7-10.3) mg/dL Alkaline Phosphatase (41-126) U/L Albumin (3.8-4.9) g/dL Albumin/Globulin Ratio (1.60-3.17) g/dL Urine Protein (Negative) Urine Blood (Negative) Ur Leukocyte Esterase (Negative) Urine RBC (0-5) /hpf Urine WBC (0-5) /hpf Urine WBC Clumps (None) /hpf Urine Bacteria (None) /hpf Hyaline Casts (0-2) /lpf Urine Mucus (None) /hpf 03/31/21 03/31/21 03/31/21 Range/Units 15:27 17:00 20:16 WBC (4.50-10.00) X 10*3/uL RBC (4.40-5.60) X 10*6/uL Hgb (13.0-17.0) g/dL Hct (39.6-50.0) % RDW (11.5-14.5) % Immature Gran # (0.00-0.04) X 10*3/uL Neutrophils # (1.80-7.70) X 10*3/uL Monocytes # (0.20-1.00) X 10*3/uL Eosinophils # (0.04-0.35) X 10*3/uL PT (9.0-12.0) sec INR (<1.2) ABG pH (7.35-7.45) ABG pCO2 (35-45) mmHg ABG pO2 (83-108) mmHg ABG HCO3 (21-25) mmol/L ABG Total CO2 (19-24) mmol/L ABG O2 Saturation (94-97) % Potassium 3.2 L (3.5-5.5) mmol/L Chloride (96-109) mmol/L Carbon Dioxide (20.0-27.5) mmol/L BUN (9.0-27.0) mg/dL Creatinine (0.6-1.5) mg/dL Est GFR (CKD-EPI)AfAm (60.0-200.0) Est GFR (CKD-EPI)NonAf (60.0-200.0) BUN/Creatinine Ratio (12.00-20.00) Ratio POC Glucose (mg/dL) 212 H 143 H (75-99) mg/dL Calcium (8.7-10.3) mg/dL Alkaline Phosphatase (41-126) U/L Albumin (3.8-4.9) g/dL Albumin/Globulin Ratio (1.60-3.17) g/dL Urine Protein (Negative) Urine Blood (Negative) Ur Leukocyte Esterase (Negative) Urine RBC (0-5) /hpf Urine WBC (0-5) /hpf Urine WBC Clumps (None) /hpf Urine Bacteria (None) /hpf Hyaline Casts (0-2) /lpf Urine Mucus (None) /hpf Microbiology - Last 24 Hours (Table) 03/30/21 18:58 Blood Culture Gram Stain - Preliminary Blood 03/29/21 16:40 Blood Culture - Preliminary Blood No Growth after 48 hours 03/30/21 18:58 Blood Culture - Final Blood 03/29/21 16:40 Blood Culture Gram Stain - Final Blood Blood Culture - Final Staphylococcus epidermidis Assessment and Plan Plan: Assessment: 1. Acute kidney injury secondary to ATN secondary to severe sepsis. Baseline creatinine near 1 and peaked at 3.6 this admission - 2.8 yesterday. Nonoliguri c. UA suggestive of UTI. No evidence of hydronephrosis noted on kidney ultrasound. 2. Acute hypoxic respiratory failure secondary to COVID-19 pneumonia. 3. Hypokalemia from poor intake. Replaced. 4. Respiratory alkalosis and metabolic acidosis. Better. Repeat ABG from 03/31/2021 showed metabolic acidosis. 5. Diabetes mellitus. 6. Staph epi bacteremia. Possible contamination. Infectious disease following. On antibiotics. Plan: Maintain bicarb drip. Follow-up morning labs. Check urine culture. Avoid nephrotoxins. Continue to monitor renal function and urine output.
[2021-04-01] MEDS: PANTOPRAZOLE 40 MG/10 ML VIAL IVP SCH (09:44)
[2021-04-01] MEDS: BACLOFEN 10 MG TAB PO PRN (09:45)
[2021-04-01] MEDS: ENOXAPARIN 30 MG/0.3 ML SYRINGE SQ SCH (09:45)
[2021-04-01] MEDS: ASCORBIC ACID 500 MG TAB PO SCH ×2 (09:45→20:29)
[2021-04-01] MEDS: metroNIDAZOLE 500 MG TAB PO SCH ×3 (09:45→20:29)
[2021-04-01] MEDS: DEXAMETHASONE SOD PHOSPHATE 10 MG/ML 1 ML VIAL IVP SCH (09:45)
[2021-04-01] MEDS: NORTRIPTYLINE 10 MG CAP PO SCH ×2 (09:45→20:44)
[2021-04-01] MEDS: levETIRAcetam 500 MG TAB PO SCH (09:45)
[2021-04-01] MEDS: ZINC SULFATE 220 MG CAP PO SCH (09:46)
[2021-04-01] MEDS: ATORVASTATIN 20 MG TAB PO SCH (09:46)
[2021-04-01] MEDS: CEFEPIME 1 GM in SODIUM CHLORIDE 0.9% 50 ML IVPB SCH (09:46)
[2021-04-01] MEDS: CHOLECALCIFEROL 25 MCG (1000 IU) TABLET PO SCH (09:46)
[2021-04-01] MEDS ORDERED: LIDOCAINE 1% INJ 10MG/ML (20 ML MDV) ONE (10:24)
[2021-04-01 11:21] LABS: Basophils # (A) 0.03 X 10*3/uL (0.00-0.10); Basophils % (A) 0.3 %; Eosinophils # (A) 0.01 X 10*3/uL (0.04-0.35); Eosinophils % (A) 0.1 %; HGB 9.7 g/dL (13.0-17.0); Lymphocytes # (A) 2.83 X 10*3/uL (0.90-5.00); MCH 31.1 pg (27.0-32.0); MCHC 33.4 g/dL (32.0-37.0); MCV 92.9 fL (80.0-97.0); Monocytes # (A) 0.73 X 10*3/uL (0.20-1.00); Monocytes % (A) 6.4 %; Neutrophils # (A) 7.53 X 10*3/uL (1.80-7.70); Neutrophils % (A) 66.3 %; Platelet Count 296 X 10*3/uL (140-440); RBC 3.12 X 10*6/uL (4.40-5.60); RDW 16.2 % (11.5-14.5); WBC 11.34 X 10*3/uL (4.50-10.00)
[2021-04-01 11:44] LABS: Glucose,Whole Blood 85 mg/dL (75-99)
[2021-04-01 12:03] LABS: African American GFR (CKD) 55.4 (60.0-200.0); Albumin 3.5 g/dL (3.8-4.9); Albumin/Globulin Ratio 1.09 (1.60-3.17); Anion Gap 15.2 mmol/L (10.00-18.00); BUN/Creat Ratio 43.53 Ratio (12.00-20.00); Blood Urea Nitrogen 65.3 mg/dL (9.0-27.0); Calcium 8.1 mg/dL (8.7-10.3); Carbon Dioxide 16.8 mmol/L (20.0-27.5); Globulin 3.2 g/dL (1.6-3.3); Magnesium 1.9 mg/dL (1.5-2.4); Non-African American GFR(CKD) 47.8 (60.0-200.0); Potassium 3.2 mmol/L (3.5-5.5); Total Bilirubin 0.5 mg/dL (0.30-1.20); Total Protein 6.7 g/dL (6.2-8.2)
[2021-04-01 12:06] LABS: INR 1.5 (<1.2)
[2021-04-01] MEDS ORDERED: POTASSIUM CHLORIDE ER 20 MEQ TAB.ER PO STA ×2 (13:33→14:16)
[2021-04-01] MEDS ORDERED: SODIUM BICARB 8.4% 50 ML SYR (1 MEQ/ML) IV STA (13:34)
--- NOTE | 2021-04-01 14:24 | P.PN ---
Subjective Progress Note Date: 04/01/21 68-year-old male patient with past medical history of Crohn's disease status post multiple bowel resections, history of recent hospitalization for acute kidney injury related to hypovolemia and small bowel obstruction, diabetes mellitus type 2, history of BPH status post TURP, remote history of smoking who presented to the emergency department on 03/29/2021 with complaints of weakness for the past 2 weeks. According to the ED record patient was also complaining of some dyspnea on presentation. He was having a difficult time walking across a room without getting very short of breath. He denied any chest pain, no fever or chills. He reports some yellow colored phlegm production. He is vaccinated with Artemio & Artemio vaccine, single dose. The dates are unknown, patient is a patient of Dr. Lorenz, he is short of breath, he is confused this morning, he is a poor historian. His chest x-ray on admission showed persistent small right pleural effusion with no other significant abnormality. Patient denies any chronic lung problems. He is on Symbicort at home on a regular basis, he was started on IV Solu-Medrol, azithromycin in the emergency department. In addition patient reportedly had extensive nausea, vomiting and diarrhea at home. She tested positive for COVID-19 in the emergency department, he is RSV and influenza A and B were negative, his renal function was significantly abnormal with evidence of acute kidney injury and the BUN of 79 and creatinine of 2.9, potassium level was 3.1, sodium was 137, right was 107, CO2 was 11, d-dimer 0.63, INR is 1.2, BUN of 12.9, hemoglobin of 14.4. Earlier this morning he was on room air, maintaining O2 saturations at 92-98%, afebrile, blood pressures were on the lower side with systolic in the 90s and diastolic in the 50s. During my evaluation patient is restless very confused, he is dyspneic, and this was a change from earlier exam according to the nursing staff. He required to be placed on supplemental oxygen and he was satting 82% on 3 L and FiO2 has subsequently been increased to 6 L. This morning's labs revealed worsening renal function, with BUN of 81 and creatinine 3.37, potassium is 3.2, CO2 is only 12. Abdomen is soft, nontender, the patient did have vomiting on midnight shift. Appears very dehydrated On 03/31/2021 patient seen in follow-up on medical surgical floor, he is lethargic, and he is confused, but appears to be in no acute distress. Currently on 3 L of oxygen pulse ox of 94-100%, he is afebrile, hemodynamically he is stable, breathing is nonlabored, lung sounds reveal diminished breath sounds at bilateral bases, no crackles. Indwelling Curran catheter has been placed, patient has produced 600 mL and urine output the last 24 hours. He remains on 0.9 normal saline at a rate of 75 ML per hour, he was fluid resuscitated yesterday with 2 L of IV fluid boluses. He has had no further nausea and vomiting overnight, CT of the abdomen and pelvis showed large bowel fluid levels consistent with ileus and diarrhea not significantly different from recent exam, and no evidence of mechanical bowel obstruction. There was minimal scarring and subsegmental atelectasis at the lung bases without change. Nephrology has been consulted, repeat blood gas today has been reviewed showing pO2 of 140, pCO2 of 29, and pH of 7.33, this was done and FiO2 of 20%, and this is an improved acid-base balance with residual metabolic acidosis. Overnight one of patient's blood cultures also showed gram-positive cocci in clusters, and patient was started on empiric antibiotics and he is currently on cefepime, vancomycin, and Flagyl. On today's labs, his white count is 14.5, hemoglobin is 10.4, INR is 1.4, sodium is 144, potassium is 3.1, chloride is 1:15, CO2 is 14.4, BUN is 78, creatinine is 2.8, slightly improved renal profile compared yesterday's level. Glucose level is 110, he Medrol has been discontinued and patient is currently on once daily dose of Decadron 6 mg daily. His AST and ALT are within normal limits, alk phos is improving and is down to 135. Procan SR level is 0.38, his urinalysis showed possibility of urinary tract infection. CT of the brain showed mild diffuse age-related cerebral atrophy On 04/01/2021 patient seen in follow-up on medical surgical floor. he is more awake, however he still very confused, he keeps repeating the same words, on room air, with a pulse ox of 96%, vital signs are stable, no fever or chills. Lung sounds are positive for diminished breath sounds at the bases, mild crackles at the bases. 7 reviewed, white blood cell count is down to 11.3, hemoglobin is 9.7, INR is elevated at 1.5, serum sodium is 152, potassium is 3.2, chloride is 120, CO2 is 16.8, BUN 65, and creatinine is down to 1.5. Pro- calcitonin level was negative at 0.38 however patient had positive blood cultures and was initially covered with a combination of cefepime, vancomycin and Flagyl. Also found to have a positive urinary tract infection, urine culture is pending, blood cultures resulted and Staphylococcus epidermidis, followup blood cultures from 03/30/2021 again showed gram-positive cocci in clusters. ID service is following, nephrology is following. Yesterday patient had a CT of the brain showed no acute intracranial hemorrhage or midline shift, mild diffuse age-related cerebral atrophy. Otherwise stable from pulmonary perspective, breathing comfortably. Patient still has a right foot IV, and PICC line placement attempt was unsuccessful, currently awaiting midline placement. Objective - Vital Signs Vital signs: Vital Signs Temp 98.4 F 04/01/21 09:58 Pulse 79 04/01/21 09:58 Resp 18 04/01/21 09:58 BP 136/68 04/01/21 09:58 Pulse Ox 96 04/01/21 09:58 Intake & Output 03/31/21 04/01/21 04/01/21 18:59 06:59 18:59 Output Total 650 1000 Balance -650 -1000 Output: Urine 650 1000 Other: Voiding Method Indwelling Catheter Indwelling Catheter Diaper Incontinent - Exam GENERAL EXAM: Alert, very confused, restless, 65-year-old white male, on room air, with a pulse ox of 96% HEAD: Normocephalic/atraumatic. EYES: Normal reaction of pupils, equal size. Conjunctiva pink, sclera white. NOSE: Clear with pink turbinates. MOUTH: dry oral mucous membranes THROAT: No erythema or exudates. NECK: No masses, no JVD, no thyroid enlargement, no adenopathy. CHEST: No chest wall deformity. Symmetrical expansion. LUNGS: Equal air entry with diminished breath sounds at bilateral bases, no crac kles CVS: Regular rate and rhythm, normal S1 and S2, no gallops, no murmurs, no rubs ABDOMEN: Soft, nontender. No hepatosplenomegaly, normal bowel sounds, no guarding or rigidity. Midabdominal healed abdominal incision from previous history of Crohn's disease and bowel resections EXTREMITIES: No clubbing, no edema, no cyanosis, 2+ pulses and upper and lower extremities. MUSCULOSKELETAL: Muscle strength and tone normal. SPINE: No scoliosis or deformity SKIN: No rashes CENTRAL NERVOUS SYSTEM: Alert and oriented -3. No focal deficits, tone is normal in all 4 extremities. PSYCHIATRIC: Alert and oriented -2, confused, restless. - Labs CBC & Chem 7: 04/01/21 06:06 04/01/21 06:06 Labs: Abnormal Lab Results - Last 24 Hours (Table) 03/31/21 03/31/21 03/31/21 Range/Units 15:27 17:00 20:16 WBC (4.50-10.00) X 10*3/uL RBC (4.40-5.60) X 10*6/uL Hgb (13.0-17.0) g/dL Hct (39.6-50.0) % RDW (11.5-14.5) % Absolute Nucleated RBC (0.00-0.00) X 10*3/uL Immature Gran # (0.00-0.04) X 10*3/uL Eosinophils # (0.04-0.35) X 10*3/uL NRBC/100 WBC Diff (0.0-0.0) /100 WBCS PT (9.0-12.0) sec INR (<1.2) Sodium (135-145) mmol/L Potassium 3.2 L (3.5-5.1) mmol/L Chloride (96-109) mmol/L Carbon Dioxide (20.0-27.5) mmol/L BUN (9.0-27.0) mg/dL Est GFR (CKD-EPI)AfAm (60.0-200.0) Est GFR (CKD-EPI)NonAf (60.0-200.0) BUN/Creatinine Ratio (12.00-20.00) Ratio POC Glucose (mg/dL) 212 H 143 H (75-99) mg/dL Calcium (8.7-10.3) mg/dL Albumin (3.8-4.9) g/dL Albumin/Globulin Ratio (1.60-3.17) g/dL 04/01/21 04/01/21 04/01/21 Range/Units 06:06 06:06 11:30 WBC 11.34 H (4.50-10.00) X 10*3/uL RBC 3.12 L (4.40-5.60) X 10*6/uL Hgb 9.7 L (13.0-17.0) g/dL Hct 29.0 L (39.6-50.0) % RDW 16.2 H (11.5-14.5) % Absolute Nucleated RBC 0.03 H (0.00-0.00) X 10*3/uL Immature Gran # 0.21 H (0.00-0.04) X 10*3/uL Eosinophils # 0.01 L (0.04-0.35) X 10*3/uL NRBC/100 WBC Diff 0.3 H (0.0-0.0) /100 WBCS PT 15.0 H (9.0-12.0) sec INR 1.5 H (<1.2) Sodium 152 H (135-145) mmol/L Potassium 3.2 L (3.5-5.1) mmol/L Chloride 120 H (96-109) mmol/L Carbon Dioxide 16.8 L (20.0-27.5) mmol/L BUN 65.3 H (9.0-27.0) mg/dL Est GFR (CKD-EPI)AfAm 55.4 L (60.0-200.0) Est GFR (CKD-EPI)NonAf 47.8 L (60.0-200.0) BUN/Creatinine Ratio 43.53 H (12.00-20.00) Ratio POC Glucose (mg/dL) (75-99) mg/dL Calcium 8.1 L (8.7-10.3) mg/dL Albumin 3.5 L (3.8-4.9) g/dL Albumin/Globulin Ratio 1.09 L (1.60-3.17) g/dL Microbiology - Last 24 Hours (Table) 03/30/21 18:58 Blood Culture Gram Stain - Preliminary Blood 03/29/21 16:40 Blood Culture - Preliminary Blood No Growth after 48 hours 03/30/21 18:58 Blood Culture - Final Blood 03/29/21 16:40 Blood Culture Gram Stain - Final Blood Blood Culture - Final Staphylococcus epidermidis Assessment and Plan Plan: Assessment: #1. Acute COVID-19 infection, without evidence of pneumonia on the chest x-ray, chest x-ray shows persistent small right pleural effusion without other significant abnormality. Onset of symptoms is approximately 2 weeks ago. Patient is vaccinated with Artemio & Artemio vaccine. Not a candidate for Remdesivir related to length of symptoms, no evidence of pneumonia on the chest x-ray and acute kidney injury #2. Gram-positive bacteremia, with a gram-positive cocci in clusters, blood culture resulted in staph epidermidis, however patient follow blood culture is still positive for gram-positive cocci in clusters, current antibiotic coverage is with cefepime and Flagyl. Was covered with vancomycin initially. ID service is following and managing #3. Nausea and vomiting, CT of abdomen showed possible ileus, but no evidence of mechanical obstruction #4. Acute kidney injury related to ATN, and severe dehydration, improving #5. Acute metabolic acidosis, related to severe dehydration and ATN and acute kidney injury, improving #6. Previous history of Crohn's disease with multiple bowel resections #7. Recent hospitalization in November for dehydration, small bowel obstruction, and acute kidney injury #8. Possible component of chronic kidney disease, most recently recovered from his recent episode in November, was seen by nephrology during that admission #9. Questionable history of COPD, remote history of smoking, patient denies any chronic lung disease #10. Confusion, dyspnea, possibly related to metabolic encephalopathy, CT of the brain showed no acute findings #11. Diabetes mellitus type 2 #12. History of CVA/TIA #13. GERD/reflux #14. History of back surgery #15. Possible history of seizures, patient has Keppra on his home med list #16. Hypernatremia, , multifactorial, possibly related to infusion of 0.9 normal saline, and dehydration, currently being switched over to D5W at 75 ML per hour Number Plan: From pulmonary perspective patient has remained stable Currently on room air, no worsening dyspnea or cough Today's labs have been reviewed, renal function is improving, IV fluids will be switched to D5W in view of rising sodium Continue Decadron 6 mg daily Continue inhaled bronchodilators Antibiotics per ID service recommendations Currently on a combination of cefepime and Flagyl, awaiting final results of the urine and blood cultures Maintaining safety precautions, aspiration precautions PICC line placement attempt was unsuccessful Awaiting midline placement We'll need to discontinue the right foot IV after midline placement Continue supportive treatment I performed a history & physical examination of the patient and discussed their management with my nurse practitioner, Malini Wooten. I reviewed the nurse practitioner's note and agree with the documented findings and plan of care. Lung sounds are positive for dim breath sounds throughout the lung sood. The findings and the impression was discussed with the patient. I attest to the documentation by the nurse practitioner. Time with Patient: Less than 30
--- NOTE | 2021-04-01 14:34 | P.CNNES ---
History of Present Illness Consult date: 04/01/21 Requesting physician: Malini Wooten Reason for Consult: altered mental status, COVID 19, MEL History of Present Illness: This is 65-year-old gentleman with medical history of seizure, DM, chronic kidney disease, previous Crohn's disease with multiple bowel resection resented emergency department on 03/29/2021 for shortness of breath. Neurology is consulted for altered mental status. During this hospitalization the patient was found to have COVID-19 pneumonia. Patient is unable to provide history since his confusion. History is obtained from the patient's . I spoke with the patient (Jenny) via phone and she stated that at baseline the patient is alert oriented 4 he walks independently without using any assistance. She stated he had one seizure in 2017 and was found to have brain bleed. She stated he was taken to [facility] and no intervention for hemorrhage and they started the patient on Keppra. Unsure cause of hemorrhage but no aneurysm that was notified to patient's . She does not know the exact detail of hemorrhage. Patient follows up with a neurologist over at [facility] on yearly basis and the patient was notified to continue Keppra 500 mg daily and 1000 mg daily at bedtime and the patient has been compliant on the medication. The patient is not on any antiplatelet or anticoagulation according to the . Patient stated that the patient has not had any seizures since 2017 and she stated that the seizure was one that EMS came to take the patient and they noticed a seizure-like activity. During this hospital stay at as I mentioned the patient the has COVID-19 pneumonia and he is on Decadron. There is no seizure-like activity noticed by the nurse. Patient has acute kidney injury. Of note patient had a CT of the head in our facility on 08/23/2016 it's mentioned that the patient has hyperdense 6 mm focus in the left temporal lobe. 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 MRI with and without contrast reviewed demonstrated for further evaluation. Somewhat limited examination of supratentorial brain due to motion with apparent loss of ibarra-white matter differentiation sulcation in the right frontal lobe which may be artifactual. Additionally there is a fairly increased attenuation in the right frontal sulci which may be artifactual with other etiologies such as leptomeningeal vascular congestion or subarachnoid hemorrhage considered less likely. Some other workup in the hospital consisted of: Most latest vitals his blood pressure of 136/68, heart rate of 79, temperature of 98.4 Fahrenheit oral, respiratory rate of 18 and pulse ox of 96% room air. During the hospital stay at his initial blood pressure was 88/63 and a repeat it was 94/70. Patient has been afebrile. Wbc initially 12.9K and most recent is 11.3KThe hemoglobin was resected is 9.7 hematocrit is 29.0 Most recent sodium is 152, creatinine is 1.5 and the BUN 65.3, serum glucose is a 71, calcium is 8.1, magnesium is 1.9, AST of 25 and ALT of 24 Urine analysis is the leukocyte esterase was large, urine white blood cells more than 182, urine white blood cell clumps is FUO, urine bacteria is that a few SARS Covid to PCR is detected. RSV PCR and Influeza A/B are not detected. Initial ABG is the pCO2 was 16, bicarbonate is 10, pH is 7.4, pO2 is 180 CT of the head is reported as no acute intracranial hemorrhage or midline shift. There is mild diffuse age-related cerebral atrophy redemonstrated. New acute maxillary sinusitis. I personally reviewed the CT of the head and there is no acute or subacute ischemia and there is no interictal parenchymal hemorrhages se en. Review of Systems Review of system: The 12 point system was limited because of patient's confusion but the pertinent positive and negative as per HPI. Past Medical History Past Medical History: Asthma, CVA/TIA, Diabetes Mellitus, Deep Vein Thrombosis (DVT), GERD/Reflux, Osteoarthritis (OA), Skin Disorder Additional Past Medical History / Comment(s): HX OF KIDNEY STONES, CROHNS D ISEASE, HX OF BLOOD CLOT RT ARM AND BEHIND RT KNEE, TIA/seizure/brain bleed 08/2016, see Dr Wright H&P, "spots of dry skin", hx anemia, september 2018 stone removed L kidney History of Any Multi-Drug Resistant Organisms: MRSA Date of last positivie culture/infection: 2006 MDRO Source:: nose Past Surgical History: Appendectomy, Back Surgery, Bowel Resection, Cholecystectomy, Heart Catheterization, Prostate Surgery Additional Past Surgical History / Comment(s): BOWEL RESECTION X 5, SPINAL SURGERIES X3, LEFT LOBECTOMY. lithotripsy, TURP, neck fusion. Past Anesthesia/Blood Transfusion Reactions: No Reported Reaction Past Psychological History: No Psychological Hx Reported Smoking Status: Former smoker Past Alcohol Use History: None Reported Additional Past Alcohol Use History / Comment(s): quit smoking 2005, smoked for > 30 yrs. 1-2 PPD Past Drug Use History: None Reported - Past Family History Mother Family Medical History: Deep Vein Thrombosis (DVT) Medications and Allergies Home Medications Medication Instructions Recorded Confirmed Type levETIRAcetam [Keppra] 500 mg PO DAILY 02/22/17 03/29/21 History levETIRAcetam [Keppra] 1,000 mg PO HS 03/10/17 03/29/21 History Nitroglycerin Sl Tabs [Nitrostat] 0.4 mg SL Q5M PRN 04/26/17 03/29/21 History Albuterol Sulfate [Albuterol 2 puff INHALATION RT-Q4H PRN 01/21/20 03/29/21 History Sulfate Hfa] Insulin Lispro [humaLOG Kwikpen] See Protocol SQ AC-TID 01/21/20 03/29/21 History Budesonide/Formoterol Fumarate 2 puff INHALATION RT-BID 05/08/20 03/29/21 History [Symbicort 160-4.5 Mcg Inhaler] Pantoprazole Sodium [Protonix] 40 mg PO DAILY 05/08/20 03/29/21 History Atorvastatin [Lipitor] 20 mg PO DAILY 12/01/20 03/29/21 History Baclofen [Lioresal] 20 mg PO BID 12/01/20 03/29/21 History Certolizumab Pegol [Cimzia] 400 mg SQ Q28D 12/01/20 03/29/21 History Nortriptyline HCl [Pamelor] 10 mg PO BID 12/01/20 03/29/21 History Insulin Glargine,Hum.rec.anlog 25 unit SQ HS #0 12/09/20 03/29/21 Rx [Lantus Solostar Pen] Ciprofloxacin HCl [Cipro] 500 mg PO BID 10 Days #20 tab 03/19/21 03/29/21 Rx Insulin Lispro [humaLOG Kwikpen] 5 unit SQ AC-TID 03/29/21 03/29/21 History Allergies Allergy/AdvReac Type Severity Reaction Status Date / Time aspirin Allergy Swelling Verified 03/29/21 13:44 ondansetron HCl [From Zofran] Allergy Unknown Verified 03/29/21 13:44 penicillin G Allergy Rash/Hives Verified 03/29/21 13:44 venom-wasp [Wasp Venom] Allergy Anaphylaxis Verified 03/29/21 13:44 nalbuphine HCl [From Nubain] AdvReac Vomiting Verified 03/29/21 13:44 Physical Examination - Vital Signs Vital Signs: Vital Signs Temp Pulse Resp BP Pulse Ox 04/01/21 09:58 98.4 F 79 18 136/68 96 04/01/21 08:00 17 04/01/21 07:43 94 L 04/01/21 05:02 98.5 F 85 18 134/76 98 04/01/21 02:12 97.7 F 83 18 149/74 100 03/31/21 21:00 98 03/31/21 20:54 97.4 F L 79 22 128/73 98 03/31/21 20:00 79 22 03/31/21 18:22 97.5 F L 73 16 116/65 100 03/31/21 15:49 99 03/31/21 14:05 97.3 F L 80 16 118/76 92 L Intake and Output 03/31/21 04/01/21 04/01/21 22:59 06:59 14:59 Output Total 650 1000 Balance -650 -1000 Output: Urine 650 1000 Other: Voiding Method Indwelling Catheter Diaper Incontinent GENERAL: The patient is lying in bed and does not seem in acute distress. CHEST: The heart rate is regular rate rhythm. No murmurs to auscultation. LUNG: Clear to auscultation bilaterally no wheezing noted throughout. Not labored breathing. ABDOMEN/GI: Bowel sounds present in all 4 quadrants. No tenderness to palpation throughout. NEUROLOGICAL: Is limited because of his cooperation. Higher mental function: The patient is awake, alert, oriented to self. He did not respond to place or time. He was able to name few objects (pen and spoon) correctly. He was able follow some simple commands. Language is limited. No neglect. Cranial nerves: The pupils are round, equal and reactive to light. His left seems slight laterally deviate (not sure if baseline disconjugate gaze). Visual sood could not assess. EOM he was tracking throught the room and no obvious nystagmus. No facial weakness. Rest of cranial nerves are limited because of his condition. Motor: Gait is deferred. The strength is lifting all extremities above gravity and no obvious focal weakness (could not assess individual muscle). Normal tone and bulk. No spontaneous movement. Cerebellum: Could not assess. Sensation: Could not assess. Reflexes (right/left): 1+ throughout. Plantars are mute bilaterally. Results - Laboratory Findings CBC and BMP: 04/01/21 06:06 04/01/21 06:06 Abnormal Lab Findings: Abnormal Labs 03/29/21 03/29/21 03/29/21 13:10 16:40 16:40 WBC 12.9 H RBC Hgb Hct RDW 16.3 H Absolute Nucleated RBC Immature Gran # Neutrophils # Monocytes # Eosinophils # NRBC/100 WBC Diff PT 12.2 H INR 1.2 H APTT 20.7 L D-Dimer 0.63 H ABG pH ABG pCO2 ABG pO2 ABG HCO3 ABG Total CO2 ABG O2 Saturation Sodium Potassium Chloride Carbon Dioxide BUN Creatinine Est GFR (CKD-EPI)AfAm Est GFR (CKD-EPI)NonAf BUN/Creatinine Ratio Glucose POC Glucose (mg/dL) Calcium Alkaline Phosphatase Total Protein Albumin Albumin/Globulin Ratio Procalcitonin Urine Protein Urine Blood Ur Leukocyte Esterase Urine RBC Urine WBC Urine WBC Clumps Urine Bacteria Hyaline Casts Urine Mucus SARS-CoV-2 (PCR) Detected A 03/29/21 03/29/21 03/30/21 20:33 22:59 06:37 WBC 12.2 H RBC Hgb Hct RDW 17.2 H Absolute Nucleated RBC Immature Gran # Neutrophils # 10.2 H Monocytes # Eosinophils # NRBC/100 WBC Diff PT INR APTT D-Dimer ABG pH ABG pCO2 ABG pO2 ABG HCO3 ABG Total CO2 ABG O2 Saturation Sodium Potassium 3.1 L Chloride Carbon Dioxide 11 L BUN 79 H Creatinine 2.99 H Est GFR (CKD-EPI)AfAm Est GFR (CKD-EPI)NonAf BUN/Creatinine Ratio Glucose 243 H POC Glucose (mg/dL) 209 H Calcium Alkaline Phosphatase 173 H Total Protein Albumin Albumin/Globulin Ratio Procalcitonin Urine Protein Urine Blood Ur Leukocyte Esterase Urine RBC Urine WBC Urine WBC Clumps Urine Bacteria Hyaline Casts Urine Mucus SARS-CoV-2 (PCR) 03/30/21 03/30/21 03/30/21 06:37 06:37 07:57 WBC RBC Hgb Hct RDW Absolute Nucleated RBC Immature Gran # Neutrophils # Monocytes # Eosinophils # NRBC/100 WBC Diff PT INR APTT D-Dimer ABG pH ABG pCO2 ABG pO2 ABG HCO3 ABG Total CO2 ABG O2 Saturation Sodium Potassium 3.2 L Chloride 108 H Carbon Dioxide 12 L BUN 81 H Creatinine 3.37 H Est GFR (CKD-EPI)AfAm Est GFR (CKD-EPI)NonAf BUN/Creatinine Ratio Glucose 271 H POC Glucose (mg/dL) 297 H Calcium Alkaline Phosphatase 197 H Total Protein 8.4 H Albumin Albumin/Globulin Ratio Procalcitonin 0.38 H Urine Protein Urine Blood Ur Leukocyte Esterase Urine RBC Urine WBC Urine WBC Clumps Urine Bacteria Hyaline Casts Urine Mucus SARS-CoV-2 (PCR) 03/30/21 03/30/21 03/30/21 11:44 13:07 13:29 WBC RBC Hgb Hct RDW Absolute Nucleated RBC Immature Gran # Neutrophils # Monocytes # Eosinophils # NRBC/100 WBC Diff PT INR APTT D-Dimer ABG pH ABG pCO2 16 L* ABG pO2 180 H ABG HCO3 10 L* ABG Total CO2 10 L ABG O2 Saturation 98.7 H Sodium Potassium Chloride Carbon Dioxide BUN Creatinine Est GFR (CKD-EPI)AfAm Est GFR (CKD-EPI)NonAf BUN/Creatinine Ratio Glucose POC Glucose (mg/dL) 333 H 279 H Calcium Alkaline Phosphatase Total Protein Albumin Albumin/Globulin Ratio Procalcitonin Urine Protein Urine Blood Ur Leukocyte Esterase Urine RBC Urine WBC Urine WBC Clumps Urine Bacteria Hyaline Casts Urine Mucus SARS-CoV-2 (PCR) 03/30/21 03/30/21 03/30/21 15:08 16:46 18:58 WBC RBC Hgb Hct RDW Absolute Nucleated RBC Immature Gran # Neutrophils # Monocytes # Eosinophils # NRBC/100 WBC Diff PT INR APTT D-Dimer ABG pH ABG pCO2 ABG pO2 ABG HCO3 ABG Total CO2 ABG O2 Saturation Sodium Potassium 3.0 L Chloride 111 H Carbon Dioxide 11 L BUN 91 H Creatinine 3.61 H Est GFR (CKD-EPI)AfAm Est GFR (CKD-EPI)NonAf BUN/Creatinine Ratio Glucose 224 H POC Glucose (mg/dL) 246 H 194 H Calcium Alkaline Phosphatase Total Protein Albumin Albumin/Globulin Ratio Procalcitonin Urine Protein Urine Blood Ur Leukocyte Esterase Urine RBC Urine WBC Urine WBC Clumps Urine Bacteria Hyaline Casts Urine Mucus SARS-CoV-2 (PCR) 03/30/21 03/31/21 03/31/21 20:49 07:55 07:55 WBC 14.50 H RBC 3.31 L Hgb 10.4 L Hct 30.1 L RDW 15.7 H Absolute Nucleated RBC Immature Gran # 0.16 H Neutrophils # 10.77 H Monocytes # 1.10 H Eosinophils # 0.01 L NRBC/100 WBC Diff PT INR APTT D-Dimer ABG pH ABG pCO2 ABG pO2 ABG HCO3 ABG Total CO2 ABG O2 Saturation Sodium Potassium 3.1 L Chloride 115 H Carbon Dioxide 14.4 L BUN 78.7 H Creatinine 2.8 H Est GFR (CKD-EPI)AfAm 25.6 L Est GFR (CKD-EPI)NonAf 22.1 L BUN/Creatinine Ratio 27.71 H Glucose POC Glucose (mg/dL) 254 H Calcium 8.1 L Alkaline Phosphatase 135 H Total Protein Albumin 3.5 L Albumin/Globulin Ratio 1.07 L Procalcitonin Urine Protein Urine Blood Ur Leukocyte Esterase Urine RBC Urine WBC Urine WBC Clumps Urine Bacteria Hyaline Casts Urine Mucus SARS-CoV-2 (PCR) 03/31/21 03/31/21 03/31/21 10:24 11:58 12:32 WBC RBC Hgb Hct RDW Absolute Nucleated RBC Immature Gran # Neutrophils # Monocytes # Eosinophils # NRBC/100 WBC Diff PT 13.9 H INR 1.4 H APTT D-Dimer ABG pH ABG pCO2 ABG pO2 ABG HCO3 ABG Total CO2 ABG O2 Saturation Sodium Potassium Chloride Carbon Dioxide BUN Creatinine Est GFR (CKD-EPI)AfAm Est GFR (CKD-EPI)NonAf BUN/Creatinine Ratio Glucose POC Glucose (mg/dL) 156 H Calcium Alkaline Phosphatase Total Protein Albumin Albumin/Globulin Ratio Procalcitonin Urine Protein 1+ H Urine Blood Large H Ur Leukocyte Esterase Large H Urine RBC 54 H Urine WBC >182 H Urine WBC Clumps Few H Urine Bacteria Few H Hyaline Casts 4 H Urine Mucus Rare H SARS-CoV-2 (PCR) 03/31/21 03/31/21 03/31/21 12:39 15:27 17:00 WBC RBC Hgb Hct RDW Absolute Nucleated RBC Immature Gran # Neutrophils # Monocytes # Eosinophils # NRBC/100 WBC Diff PT INR APTT D-Dimer ABG pH 7.33 L ABG pCO2 29 L ABG pO2 140 H ABG HCO3 16 L ABG Total CO2 16 L ABG O2 Saturation 98.0 H Sodium Potassium 3.2 L Chloride Carbon Dioxide BUN Creatinine Est GFR (CKD-EPI)AfAm Est GFR (CKD-EPI)NonAf BUN/Creatinine Ratio Glucose POC Glucose (mg/dL) 212 H Calcium Alkaline Phosphatase Total Protein Albumin Albumin/Globulin Ratio Procalcitonin Urine Protein Urine Blood Ur Leukocyte Esterase Urine RBC Urine WBC Urine WBC Clumps Urine Bacteria Hyaline Casts Urine Mucus SARS-CoV-2 (PCR) 03/31/21 04/01/21 04/01/21 20:16 06:06 06:06 WBC 11.34 H RBC 3.12 L Hgb 9.7 L Hct 29.0 L RDW 16.2 H Absolute Nucleated RBC 0.03 H Immature Gran # 0.21 H Neutrophils # Monocytes # Eosinophils # 0.01 L NRBC/100 WBC Diff 0.3 H PT INR APTT D-Dimer ABG pH ABG pCO2 ABG pO2 ABG HCO3 ABG Total CO2 ABG O2 Saturation Sodium 152 H Potassium 3.2 L Chloride 120 H Carbon Dioxide 16.8 L BUN 65.3 H Creatinine Est GFR (CKD-EPI)AfAm 55.4 L Est GFR (CKD-EPI)NonAf 47.8 L BUN/Creatinine Ratio 43.53 H Glucose POC Glucose (mg/dL) 143 H Calcium 8.1 L Alkaline Phosphatase Total Protein Albumin 3.5 L Albumin/Globulin Ratio 1.09 L Procalcitonin Urine Protein Urine Blood Ur Leukocyte Esterase Urine RBC Urine WBC Urine WBC Clumps Urine Bacteria Hyaline Casts Urine Mucus SARS-CoV-2 (PCR) 04/01/21 11:30 WBC RBC Hgb Hct RDW Absolute Nucleated RBC Immature Gran # Neutrophils # Monocytes # Eosinophils # NRBC/100 WBC Diff PT 15.0 H INR 1.5 H APTT D-Dimer ABG pH ABG pCO2 ABG pO2 ABG HCO3 ABG Total CO2 ABG O2 Saturation Sodium Potassium Chloride Carbon Dioxide BUN Creatinine Est GFR (CKD-EPI)AfAm Est GFR (CKD-EPI)NonAf BUN/Creatinine Ratio Glucose POC Glucose (mg/dL) Calcium Alkaline Phosphatase Total Protein Albumin Albumin/Globulin Ratio Procalcitonin Urine Protein Urine Blood Ur Leukocyte Esterase Urine RBC Urine WBC Urine WBC Clumps Urine Bacteria Hyaline Casts Urine Mucus SARS-CoV-2 (PCR) Assessment and Plan Assessment: * Altered mental status likely due to multifactorial: Metabolic encephalopathy as well as hypoxic encephalopathy from the COVID-19 pneumonia and medication use (Steroids) * History of seizure (had on seizure in 2017) from intraparechymal bleed and is on Keppra * History of intraparenchymal bleed (was evaluated by [facility]) and no intervention according to * Acute kidney injury * Type 2 diabetes * History of chronic kidney disease * Previous Crohn's disease with multiple bowel resection Plan: * I ordered an routine EEG. * Continue home dose of Keppra 500mg daily and 1000mg qhs. * CT of the head on 03/31/21 is reported as no acute intracranial hemorrhage or midline shift. There is mild diffuse age-related cerebral atrophy redemonstrated. New acute maxillary sinusitis. I personally reviewed the CT of the head and there is no acute or subacute ischemia and there is no interictal parenchymal hemorrhages seen. * Ammonia level is ordered by primary team. I ordered TSH. * Q4 hour neuro checks. * Possibly patient has Urinary tract infection Urine cultures are pending. Defer the management to primary team. * Pulmonary team is on board. * Will defer the rest of medical management to the primary team. * Upon discharge, patient to continue to follow-up with his neurologist (over at [facility]). The plan is discussed with the patient (via phone) and his nurse. Thank you for the consultation. Steven Ballard M.D. Neuro-Hospitalist Time with Patient: Greater than 30
--- NOTE | 2021-04-01 14:46 | CDI ---
Documentation Clarification Form Date: 04/01/2021 02:26:12 PM From: Trudy Galindo CCS, CCDS Admit Date: 03/29/2021 05:54:00 PM Patient Name: Ky Michaels Visit Number: [id number] Discharge Date: ATTENTION: The Clinical Documentation Specialists (CDI) and [facility] Coding Staff appreciate your assistance in clarifying documentation. Please respond to the clarification below the line at the bottom and electronically sign. The CDI & [facility] Coding staff will review the response and follow-up if needed. Please note: Queries are made part of the Legal Health Record. If you have any questions, please contact the author of this message via ITS. Dr. Shirley Gonsalez or Dr. Gracy Resendez: Severe Sepsis is documented in the 03/31 Nephrology Consult and subsequent Nephrology Progress Note. Additional clarification regarding the etiology/cause of the clinical indicators is requested. History/Risk Factors per the 03/29 H/P: Asthma, COPD, CVA, DM, DVT, GERD, Kidney Stones, DJD, MRSA. Former smoker. Clinical Indicators: Presented to the ED on 03/29 with SOB and cough x2 weeks. Admitted with Acute Exacerbation of COPD, COVID 19, Right Pleural Effusion 03/29 VS: T 97.9, P 110, R 20 (sob), BP 88/63, PO 92 RA - 97 3Lnc, BMI 26.9 03/29 LAB: WBC 12.9, Neut 7.3, D Dimer 0.63, K 3.1, CO2 11, BUN 79, Creatinine 2.99, Glucose 243, Alk Phos 173 03/29 Influenza A/B: Negative 03/29 RSV: Negative 03/29 COVID: Positive 03/31 VS: T 97.3, P 80, R 16, BP 118/76, PO 92 3Lnc 03/31 LAB: WBC 14.50, Hgb 10.4, K 3.1, Cl 115<O2 14.4, BUN 78.7, Cr 2.8, Calcium 8.1, Lactic Acid 0.8, Alk Phos 135, Albumin 3.5 03/31 UA: Cloudy, 1+ Protein, Large Blood, Large Esterase, RBC 54, WBC >182 03/31 Blood Gas (ABG: pH 7.33, pCO2 29, pO2 140, HCO3 140, HCO3 16, Total CO2 16 Treatment 03/29: Telemetry, Insulin sl sc, Blood culture, Sputum Culture, O2 3L- 6Lnc, INH Ventolin, IV Keppra, IV Dilaudid, po Vit D3, Lovenox sq, IV Solumedrol, po Orazinc, INH Ventolin, INH Symbicort, po Vit C. 03/30: Curran Cath placed, po Zithromax, IV Na Bicarb, IV Na Cl 999 mls/hr q1Hr, IV Kcl, IV Decadron, IV Vancomycin 03/31: PICC line attempted, procedure canceled; IV Cefepime, IV Dextrose/Water w/Na bicarb, IV Kcl, IV Vancomycin, O2 2-3Lnc - Room air. 04/01: Urine Culture In your professional opinion, please clarify if these findings signify one of the following conditions: [ ] Sepsis POA, please specify cause if known: [ ] Sepsis, Not POA [ ] Sepsis ruled out [ ] Severe Sepsis with organ failure [ ] Other, please specify [ ] Unable to determine (Template Last Reviewed: May 2020) My impression as per my documentation MTDD
[2021-04-01 14:58] VITALS: BMI 26.8
--- NOTE | 2021-04-01 16:32 | EEG ---
ELECTROENCEPHALOGRAM REPORT DATE OF SERVICE: 04/01/2021 CLINICAL HISTORY: This is a 65-year-old gentleman with a history of seizure who has acute COVID-19 pneumonia and has altered mental status. The video EEG is obtained to evaluate for seizure epileptiform activity. RELEVANT MEDICATION: Keppra. EEG TYPE: A routine 21-channel EEG is performed with video using the 10/20 electrode placement system. DESCRIPTION: Wakefulness is only obtained. During wakefulness, the background consists of low to moderate voltage of 1.5 to 2.5 hertz delta activity that is nonrhythmic. There is no physiological stage 2 sleep architecture. There is no focal slowing seen. There is moderate to significant diffuse myogenic artifact throughout the study. Interictal and ictal is none. ACTIVATION PROCEDURE: Photic stimulation and hyperventilation are not performed. CLINICAL INTERPRETATION: This is an abnormal routine EEG. The background slowing is suggestive of severe encephalopathy. There is no focal slowing, epileptiform discharges or seizure on the EEG. Clinical correlation is recommended. PIEDAD / ENRIQUETAN: [id number] / RIA
[2021-04-01] MEDS: SODIUM BICARBONATE TAB 650 MG TAB PO SCH ×3 (16:33→20:49)
[2021-04-01] MEDS: DEXTROSE 5% IN WATER 1,000 ML IV SCH (16:35)
[2021-04-01 16:57] LABS: Glucose,Whole Blood 100 mg/dL (75-99)
--- NOTE | 2021-04-01 18:44 | P.PN ---
Subjective Progress Note Date: 04/01/21 03/31/2021 Patient is evaluated today resting in bed. He is alert 0 he is lethargic and also is agitated at times. However there is no respiratory distress and his oxygen saturation was actually 97% on room air however he 2 L oxygen on him. He was able to tell me is that he does have a headache. Pupils are dilated they are reactive to light and accommodating to distance. Apparently during this hospital stay patient has had increasing confusion and family is concerned, we did order a brain CT without contrast today there was no acute intracranial hemorrhage or midline shift there is mild diffuse age-related cerebral atrophy redemonstrated. There is a new right acute maxillary sinusitis. Chest x-ray today shows bilateral lower lobe infiltrate and small effusion and correlation for COPD. Abdomen/Pelvis US shows nonobstructing bilateral nephrolithiasis. Patient was evaluated by nephrology today. Patient is also being followed closely by pulmonary services. Repeat blood gases today, additional labs include white count of 14.5, hemoglobin 10.4, INR 1.4, potassium 3.1, chloride 115, CO2 14.4, BUN 78.7, creatinine 2.8, glucose in the 150s, alk phos 135, CRP less than 0.30, LDH 174, pro calcitonin 0.38. Urinalysis today shows 1+ protein, large ketones, large leukocyte esterase, greater than 182 WBCs, few bacteria. Blood culture performed on the show Staphylococcus epidermidis, however 1 taken at the same time as negative. This is most likely contamination. Patient continues on IV cefepime, zinc, vitamin C, vitamin D, IV Decadron daily, Lovenox. He is on D5 with sodium bicarbonate at 75 mL per hour. Vanco was discontinued. Prognosis is guarded for this patient. 04/01/2021 Patient evaluated today resting in bed, he is more alert than yesterday, alert and oriented x 1. He is more cooperative, however, does not respond to commands well. Pupils are normal size today 3mm and equal reactive. Neurology consult was placed today and patient underwent an EEG which revealed background slowing suggestive of severe encephalopathy. There is no epileptiform discharges or seizure evident on EEG. Patient is now on room air with oxygen saturation of 97%, afebrile, heart rate 90 normal sinus rhythm, blood pressure 156/82. Repeat blood culture is positive for coagulase negative staph. Labs today reveal wbc count of 11.34, hemoglobin 9.7, INR of 1.5, sodium 152, potassium 3.2, chloride 120, CO2 6.8, BUN 65.3, creatinine 1.5, sugars in the 100s, magnesium 1.9. Ammonia level 9. Nursing staff is unclear if patient had a bowel movement this admission, however, there are positive bowel sounds and abdomen is soft and nontender. Patient does not appear to have a headache anymore today. Urinalysis revealed cloudy urine with 1+ protein, large blood, large luekocyte esterase, >182 WBC. Culture is currently pending. Failed attempt to place a PICC line today. Midline ordered. Nursing staff spoke with family today, denies any alcohol use, apparently since patients stroke his baseline mentation as family describes has been waxing and waning. Patient also has not been able to eat, we did consult speech therapy today for a bedside swallow exam, hopefully he can eat tomorrow, as he would also benefit from free water to help reduce serum sodium levels. Prognosis remains guarded. Review of system is difficult to assess as patient is lethargic and unable to give appropriate verbal responses. All inpatient medications were reviewed and appropriate changes in these me dications as dictated in the interval history and assessment and plan. PHYSICAL EXAMINATION: GENERAL: The patient is alert and oriented x1, he does not appear to be in distress, he is lethargic. Well developed, well nourished. HEENT: Pupils are round and equally reacting to light. Pupils are 3mm. EOMI. No scleral icterus. No conjunctival pallor. Normocephalic, atraumatic. No pharyngeal erythema. No thyromegaly. CARDIOVASCULAR: S1 and S2 present. No murmurs, rubs, or gallops. PULMONARY: Chest is clear to auscultation, no wheezing or crackles. Diminished aeration. ABDOMEN: Soft, nontender, nondistended, normoactive bowel sounds. No palpable organomegaly. MUSCULOSKELETAL: No joint swelling or deformity. EXTREMITIES: No cyanosis, clubbing, or pedal edema. NEUROLOGICAL: Gross neurological examination did not reveal any focal deficits. SKIN: No rashes. Kerlex wrapped around foot where IV access is. Assessment and plan Assessment Acute COVID-19 infection, there is no evidence of pneumonia on chest x-ray he is now on room air. Respiratory alkalosis secondary to above Acute metabolic encephalopathy related to COVID-19 infection as well as component of metabolic acidosis secondary to dehydration, uremia. Nausea and vomiting, improving, CT of abdomen showed possible ileus, no evidence for mechanical obstruction Acute kidney injury related to acute tubular necrosis secondary to dehydration which is slightly improving, on IV fluids Acute metabolic acidosis secondary to severe dehydration as well as kidney injury and tubular necrosis Hypokalemia, secondary to poor oral intake Hypernatremia Positive blood culture with staph epi, possible contamination, repeat blood culture showing coagulase negative staph History of Crohn's disease History of bowel resection Possible history of COPD, demonstrated on x-ray, normal history of smoking History of CVA/TIA with residual weakness 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 GERD GI Prophylaxis: Protonix DVT Prophylaxis: Lovenox Plan Continue on Decadron, zinc, vitamins Continue on IV antibiotics, D5 with bicarb infusion Replace potassium Neuro checks Continue all other supportive care Multiple consultations including ID pulmonary and nephrology, and neurology Midline insertion PT/OT consultation Speech consultation Prognosis guarded for this patient Objective - Vital Signs Vital signs: Vital Signs Temp 98.5 F 04/01/21 05:02 Pulse 85 04/01/21 05:02 Resp 18 04/01/21 05:02 BP 134/76 04/01/21 05:02 Pulse Ox 94 L 04/01/21 07:43 Intake & Output 03/31/21 04/01/21 04/01/21 18:59 06:59 18:59 Output Total 650 1000 Balance -650 -1000 Output: Urine 650 1000 Other: Voiding Method Indwelling Catheter Indwelling Catheter - Labs CBC & Chem 7: 04/01/21 06:06 04/01/21 06:06 Labs: Abnormal Lab Results - Last 24 Hours (Table) 03/31/21 03/31/21 03/31/21 Range/Units 07:55 07:55 10:24 WBC 14.50 H (4.50-10.00) X 10*3/uL RBC 3.31 L (4.40-5.60) X 10*6/uL Hgb 10.4 L (13.0-17.0) g/dL Hct 30.1 L (39.6-50.0) % RDW 15.7 H (11.5-14.5) % Immature Gran # 0.16 H (0.00-0.04) X 10*3/uL Neutrophils # 10.77 H (1.80-7.70) X 10*3/uL Monocytes # 1.10 H (0.20-1.00) X 10*3/uL Eosinophils # 0.01 L (0.04-0.35) X 10*3/uL PT (9.0-12.0) sec INR (<1.2) ABG pH (7.35-7.45) ABG pCO2 (35-45) mmHg ABG pO2 (83-108) mmHg ABG HCO3 (21-25) mmol/L ABG Total CO2 (19-24) mmol/L ABG O2 Saturation (94-97) % Potassium 3.1 L (3.5-5.5) mmol/L Chloride 115 H (96-109) mmol/L Carbon Dioxide 14.4 L (20.0-27.5) mmol/L BUN 78.7 H (9.0-27.0) mg/dL Creatinine 2.8 H (0.6-1.5) mg/dL Est GFR (CKD-EPI)AfAm 25.6 L (60.0-200.0) Est GFR (CKD-EPI)NonAf 22.1 L (60.0-200.0) BUN/Creatinine Ratio 27.71 H (12.00-20.00) Ratio POC Glucose (mg/dL) (75-99) mg/dL Calcium 8.1 L (8.7-10.3) mg/dL Alkaline Phosphatase 135 H (41-126) U/L Albumin 3.5 L (3.8-4.9) g/dL Albumin/Globulin Ratio 1.07 L (1.60-3.17) g/dL Urine Protein 1+ H (Negative) Urine Blood Large H (Negative) Ur Leukocyte Esterase Large H (Negative) Urine RBC 54 H (0-5) /hpf Urine WBC >182 H (0-5) /hpf Urine WBC Clumps Few H (None) /hpf Urine Bacteria Few H (None) /hpf Hyaline Casts 4 H (0-2) /lpf Urine Mucus Rare H (None) /hpf 03/31/21 03/31/21 03/31/21 Range/Units 11:58 12:32 12:39 WBC (4.50-10.00) X 10*3/uL RBC (4.40-5.60) X 10*6/uL Hgb (13.0-17.0) g/dL Hct (39.6-50.0) % RDW (11.5-14.5) % Immature Gran # (0.00-0.04) X 10*3/uL Neutrophils # (1.80-7.70) X 10*3/uL Monocytes # (0.20-1.00) X 10*3/uL Eosinophils # (0.04-0.35) X 10*3/uL PT 13.9 H (9.0-12.0) sec INR 1.4 H (<1.2) ABG pH 7.33 L (7.35-7.45) ABG pCO2 29 L (35-45) mmHg ABG pO2 140 H (83-108) mmHg ABG HCO3 16 L (21-25) mmol/L ABG Total CO2 16 L (19-24) mmol/L ABG O2 Saturation 98.0 H (94-97) % Potassium (3.5-5.5) mmol/L Chloride (96-109) mmol/L Carbon Dioxide (20.0-27.5) mmol/L BUN (9.0-27.0) mg/dL Creatinine (0.6-1.5) mg/dL Est GFR (CKD-EPI)AfAm (60.0-200.0) Est GFR (CKD-EPI)NonAf (60.0-200.0) BUN/Creatinine Ratio (12.00-20.00) Ratio POC Glucose (mg/dL) 156 H (75-99) mg/dL Calcium (8.7-10.3) mg/dL Alkaline Phosphatase (41-126) U/L Albumin (3.8-4.9) g/dL Albumin/Globulin Ratio (1.60-3.17) g/dL Urine Protein (Negative) Urine Blood (Negative) Ur Leukocyte Esterase (Negative) Urine RBC (0-5) /hpf Urine WBC (0-5) /hpf Urine WBC Clumps (None) /hpf Urine Bacteria (None) /hpf Hyaline Casts (0-2) /lpf Urine Mucus (None) /hpf 03/31/21 03/31/21 03/31/21 Range/Units 15:27 17:00 20:16 WBC (4.50-10.00) X 10*3/uL RBC (4.40-5.60) X 10*6/uL Hgb (13.0-17.0) g/dL Hct (39.6-50.0) % RDW (11.5-14.5) % Immature Gran # (0.00-0.04) X 10*3/uL Neutrophils # (1.80-7.70) X 10*3/uL Monocytes # (0.20-1.00) X 10*3/uL Eosinophils # (0.04-0.35) X 10*3/uL PT (9.0-12.0) sec INR (<1.2) ABG pH (7.35-7.45) ABG pCO2 (35-45) mmHg ABG pO2 (83-108) mmHg ABG HCO3 (21-25) mmol/L ABG Total CO2 (19-24) mmol/L ABG O2 Saturation (94-97) % Potassium 3.2 L (3.5-5.5) mmol/L Chloride (96-109) mmol/L Carbon Dioxide (20.0-27.5) mmol/L BUN (9.0-27.0) mg/dL Creatinine (0.6-1.5) mg/dL Est GFR (CKD-EPI)AfAm (60.0-200.0) Est GFR (CKD-EPI)NonAf (60.0-200.0) BUN/Creatinine Ratio (12.00-20.00) Ratio POC Glucose (mg/dL) 212 H 143 H (75-99) mg/dL Calcium (8.7-10.3) mg/dL Alkaline Phosphatase (41-126) U/L Albumin (3.8-4.9) g/dL Albumin/Globulin Ratio (1.60-3.17) g/dL Urine Protein (Negative) Urine Blood (Negative) Ur Leukocyte Esterase (Negative) Urine RBC (0-5) /hpf Urine WBC (0-5) /hpf Urine WBC Clumps (None) /hpf Urine Bacteria (None) /hpf Hyaline Casts (0-2) /lpf Urine Mucus (None) /hpf Microbiology - Last 24 Hours (Table) 03/30/21 18:58 Blood Culture Gram Stain - Preliminary Blood 03/29/21 16:40 Blood Culture - Preliminary Blood No Growth after 48 hours 03/30/21 18:58 Blood Culture - Final Blood 03/29/21 16:40 Blood Culture Gram Stain - Final Blood Blood Culture - Final Staphylococcus epidermidis
[2021-04-01] MEDS: CEFEPIME 2 GM in SODIUM CHLORIDE 0.9% 100 ML IVPB SCH (20:30)
[2021-04-01] MEDS: levETIRAcetam IV 1,000 MG in SALINE 1 100ML.BAG IVPB SCH (20:48)
[2021-04-01 21:19] LABS: Glucose,Whole Blood 162 mg/dL (75-99)
[2021-04-01] MEDS: INSULIN DETEMIR (LEVEMIR) 100 UNIT/ML SYR SQ SCH (21:36)
--- NOTE | 2021-04-01 22:37 | PN ---
PROGRESS NOTE DATE OF SERVICE: 04/01/2021 REASON FOR FOLLOWUP: 1. Positive blood culture, likely contamination. 2. Patient with UTI and ileus. INTERVAL HISTORY: The patient is afebrile. The patient is more awake and alert today. He is breathing comfortably on room air. The patient denies having any chest pain. No worsening cough or sputum production. Abdominal pain is currently controlled. No vomiting or diarrhea. PHYSICAL EXAMINATION: Blood pressure 156/82 with a pulse of 90, temperature 97.5. He is 97% on room air. General description is an elderly male lying in bed in no distress. Respiratory system: Unlabored breathing, decreased intensity of breath sounds. No wheeze. Heart S1, S2. Regular rate and rhythm. Abdomen soft, mildly distended. No guarding or rigidity. Extremities no edema of the feet. LABS: INR is 1.5. Urine culture is pending. Blood culture with coagulase-negative staph. DIAGNOSTIC IMPRESSION AND PLAN: 1. Patient with a positive blood culture with coag-negative Staphylococcus, likely skin contaminant. Repeat blood culture to document clearance of bacteremia. 2. Patient with an ileus and urinary tract infection, covered with cefepime and Flagyl; to continue while monitoring clinical course closely. Continue with supportive care. MMODL / IJN: [id number] /
[2021-04-02] MEDS: BACLOFEN 10 MG TAB PO PRN (02:09)
[2021-04-02] MEDS: DEXTROSE 5% IN WATER 1,000 ML IV SCH ×2 (06:55→16:18)
[2021-04-02 07:16] LABS: Glucose,Whole Blood 76 mg/dL (75-99)
[2021-04-02] MEDS: INSULIN ASPART (NovoLOG) 100 UNIT/ML VIAL SQ SCH ×7 (07:17→21:07)
[2021-04-02] MEDS: ALBUTEROL HFA INHALER INHALATION SCH ×4 (07:39→20:00)
[2021-04-02] MEDS: SYMBICORT 160-4.5 MCG INHALER INHALATION SCH ×2 (07:39→20:00)
[2021-04-02] MEDS: ATORVASTATIN 20 MG TAB PO SCH (08:05)
[2021-04-02] MEDS: ZINC SULFATE 220 MG CAP PO SCH (08:05)
[2021-04-02] MEDS: CHOLECALCIFEROL 25 MCG (1000 IU) TABLET PO SCH (08:05)
[2021-04-02] MEDS: metroNIDAZOLE 500 MG TAB PO SCH ×3 (08:05→23:04)
[2021-04-02] MEDS: SODIUM BICARBONATE TAB 650 MG TAB PO SCH (08:05)
[2021-04-02] MEDS: ENOXAPARIN 30 MG/0.3 ML SYRINGE SQ SCH (08:05)
[2021-04-02] MEDS: DEXAMETHASONE SOD PHOSPHATE 10 MG/ML 1 ML VIAL IVP SCH (08:05)
[2021-04-02] MEDS: ASCORBIC ACID 500 MG TAB PO SCH ×2 (08:05→23:04)
[2021-04-02] MEDS: CEFEPIME 2 GM in SODIUM CHLORIDE 0.9% 100 ML IVPB SCH ×2 (08:05→23:04)
[2021-04-02] MEDS: NORTRIPTYLINE 10 MG CAP PO SCH ×2 (08:06→23:06)
[2021-04-02] MEDS: PANTOPRAZOLE 40 MG/10 ML VIAL IVP SCH (08:06)
[2021-04-02] MEDS: levETIRAcetam 500 MG TAB PO SCH ×2 (08:06→23:04)
[2021-04-02 08:31] LABS: African American GFR (CKD) >90 (>60 ml/min/1.73 sqM); Anion Gap 7 mmol/L; Blood Urea Nitrogen 39 mg/dL (9-20); Calcium 8.6 mg/dL (8.4-10.2); Carbon Dioxide 24 mmol/L (22-30); Chloride 130 mmol/L (98-107); Glucose 62 mg/dL (74-99); Magnesium 1.7 mg/dL (1.6-2.3); Non-African American GFR(CKD) 81 (>60 ml/min/1.73 sqM)
[2021-04-02 08:33] LABS: Sodium 161 mmol/L (137-145)
[2021-04-02] MEDS ORDERED: Magnesium Replacement Protocol 1 EACH MISC MISCELLANE PRN (09:37)
[2021-04-02] MEDS ORDERED: POTASSIUM CHLORIDE ER 20 MEQ TAB.ER PO ONE ×2 (09:37→21:00)
--- NOTE | 2021-04-02 09:47 | P.PN ---
Subjective Patient is seen in follow for acute kidney injury. Renal function is back to baseline. Sodium level is up to 161. He is currently receiving D5W at 75 mL an hour. Currently on room air. Blood pressure stable. Nonoliguric. Oral intake is poor. Not a reliable historian. Vital signs are stable. HEENT: Head exam is unremarkable. LUNGS: Breath sounds decreased. HEART: Rate and Rhythm are regular. ABDOMEN: Soft, no distention. EXTREMITITES: No edema. Objective - Vital Signs Vital signs: Vital Signs Temp 97.5 F L 04/02/21 06:00 Pulse 77 04/02/21 06:00 Resp 17 04/02/21 06:00 BP 154/83 04/02/21 06:00 Pulse Ox 100 04/02/21 06:00 Intake & Output 04/01/21 04/02/21 04/02/21 18:59 06:59 18:59 Intake Total 1100 Output Total 700 Balance -700 1100 Weight 89.811 kg Intake: Intake, IV Titration 1100 Amount Cefepime 2 gm In Sodium 100 Chloride 0.9% 100 ml @ 25 mls/hr IVPB Q12HR [facility] Rx #:[id number] Dextrose 5% in Water 1, 900 000 ml @ 75 mls/hr IV . [id number] [facility] with Sodium Bicarb (1 Meq/ml) 150 ml Rx#:[id number] levETIRAcetam IV 1,000 mg 100 In Saline 1 100ml.bag @ 400 mls/hr IVPB HS [facility] Rx #:[id number] Output: Urine 700 Other: Voiding Method Diaper Diaper Incontinent Incontinent # Voids 2 - Labs CBC & Chem 7: 04/01/21 06:06 04/02/21 06:34 Labs: Abnormal Lab Results - Last 24 Hours (Table) 04/01/21 04/01/21 04/01/21 Range/Units 06:06 06:06 11:30 WBC 11.34 H (4.50-10.00) X 10*3/uL RBC 3.12 L (4.40-5.60) X 10*6/uL Hgb 9.7 L (13.0-17.0) g/dL Hct 29.0 L (39.6-50.0) % RDW 16.2 H (11.5-14.5) % Absolute Nucleated RBC 0.03 H (0.00-0.00) X 10*3/uL Immature Gran # 0.21 H (0.00-0.04) X 10*3/uL Eosinophils # 0.01 L (0.04-0.35) X 10*3/uL NRBC/100 WBC Diff 0.3 H (0.0-0.0) /100 WBCS PT 15.0 H (9.0-12.0) sec INR 1.5 H (<1.2) Sodium 152 H (135-145) mmol/L Potassium 3.2 L (3.5-5.5) mmol/L Chloride 120 H (96-109) mmol/L Carbon Dioxide 16.8 L (20.0-27.5) mmol/L BUN 65.3 H (9.0-27.0) mg/dL Est GFR (CKD-EPI)AfAm 55.4 L (60.0-200.0) Est GFR (CKD-EPI)NonAf 47.8 L (60.0-200.0) BUN/Creatinine Ratio 43.53 H (12.00-20.00) Ratio Glucose (74-99) mg/dL POC Glucose (mg/dL) (75-99) mg/dL Calcium 8.1 L (8.7-10.3) mg/dL Albumin 3.5 L (3.8-4.9) g/dL Albumin/Globulin Ratio 1.09 L (1.60-3.17) g/dL 04/01/21 04/01/21 04/02/21 Range/Units 16:55 21:16 06:34 WBC (4.50-10.00) X 10*3/uL RBC (4.40-5.60) X 10*6/uL Hgb (13.0-17.0) g/dL Hct (39.6-50.0) % RDW (11.5-14.5) % Absolute Nucleated RBC (0.00-0.00) X 10*3/uL Immature Gran # (0.00-0.04) X 10*3/uL Eosinophils # (0.04-0.35) X 10*3/uL NRBC/100 WBC Diff (0.0-0.0) /100 WBCS PT (9.0-12.0) sec INR (<1.2) Sodium 161 H* (135-145) mmol/L Potassium 3.0 L (3.5-5.5) mmol/L Chloride 130 H (96-109) mmol/L Carbon Dioxide (20.0-27.5) mmol/L BUN 39 H (9.0-27.0) mg/dL Est GFR (CKD-EPI)AfAm (60.0-200.0) Est GFR (CKD-EPI)NonAf (60.0-200.0) BUN/Creatinine Ratio (12.00-20.00) Ratio Glucose 62 L (74-99) mg/dL POC Glucose (mg/dL) 100 H 162 H (75-99) mg/dL Calcium (8.7-10.3) mg/dL Albumin (3.8-4.9) g/dL Albumin/Globulin Ratio (1.60-3.17) g/dL Microbiology - Last 24 Hours (Table) 03/29/21 16:40 Blood Culture - Preliminary Blood No Growth after 72 hours 03/30/21 18:58 Blood Culture Gram Stain - Preliminary Blood Blood Culture - Preliminary Coagulase Negative Staph 04/01/21 11:17 Urine Culture - Preliminary Urine,Catheterized Assessment and Plan Plan: Assessment: 1. Acute kidney injury secondary to ATN secondary to severe sepsis. Baseline creatinine near 1 and peaked at 3.6 this admission - 0.98 today. Nonoliguric. UA suggestive of UTI. No evidence of hydronephrosis noted on kidney ultrasound. 2. Acute hypoxic respiratory failure secondary to COVID-19 pneumonia. 3. Hypokalemia from poor intake. 4. Respiratory alkalosis and metabolic acidosis. Better. Repeat ABG from 03/31/2021 showed metabolic acidosis. Status post bicarb drip. Resolved. 5. Diabetes mellitus. 6. Staph epi bacteremia. Possible contamination. Infectious disease following. On antibiotics. Plan: Increase rate of D5W to 130 mL an hour. Repeat sodium level this afternoon. Avoid nephrotoxins. Continue to monitor renal function and urine output. Potassium and magnesium being replaced. Decreased oral bicarb to once daily.
[2021-04-02] MEDS: MAGNESIUM SULFATE-D5W PMX 1 GM in DEXTROSE/WATER 1 100ML.BAG IVPB SCH ×2 (09:50→10:56)
[2021-04-02 11:48] LABS: Glucose,Whole Blood 133 mg/dL (75-99)
--- NOTE | 2021-04-02 14:01 | P.PN ---
Subjective Progress Note Date: 04/02/21 68-year-old male patient with past medical history of Crohn's disease status post multiple bowel resections, history of recent hospitalization for acute kidney injury related to hypovolemia and small bowel obstruction, diabetes mellitus type 2, history of BPH status post TURP, remote history of smoking who presented to the emergency department on 03/29/2021 with complaints of weakness for the past 2 weeks. According to the ED record patient was also complaining of some dyspnea on presentation. He was having a difficult time walking across a room without getting very short of breath. He denied any chest pain, no fever or chills. He reports some yellow colored phlegm production. He is vaccinated with Artemio & Artemio vaccine, single dose. The dates are unknown, patient is a patient of Dr. Lorenz, he is short of breath, he is confused this morning, he is a poor historian. His chest x-ray on admission showed persistent small right pleural effusion with no other significant abnormality. Patient denies any chronic lung problems. He is on Symbicort at home on a regular basis, he was started on IV Solu-Medrol, azithromycin in the emergency department. In addition patient reportedly had extensive nausea, vomiting and diarrhea at home. She tested positive for COVID-19 in the emergency department, he is RSV and influenza A and B were negative, his renal function was significantly abnormal with evidence of acute kidney injury and the BUN of 79 and creatinine of 2.9, potassium level was 3.1, sodium was 137, right was 107, CO2 was 11, d-dimer 0.63, INR is 1.2, BUN of 12.9, hemoglobin of 14.4. Earlier this morning he was on room air, maintaining O2 saturations at 92-98%, afebrile, blood pressures were on the lower side with systolic in the 90s and diastolic in the 50s. During my evaluation patient is restless very confused, he is dyspneic, and this was a change from earlier exam according to the nursing staff. He required to be placed on supplemental oxygen and he was satting 82% on 3 L and FiO2 has subsequently been increased to 6 L. This morning's labs revealed worsening renal function, with BUN of 81 and creatinine 3.37, potassium is 3.2, CO2 is only 12. Abdomen is soft, nontender, the patient did have vomiting on midnight shift. Appears very dehydrated On 03/31/2021 patient seen in follow-up on medical surgical floor, he is lethargic, and he is confused, but appears to be in no acute distress. Currently on 3 L of oxygen pulse ox of 94-100%, he is afebrile, hemodynamically he is stable, breathing is nonlabored, lung sounds reveal diminished breath sounds at bilateral bases, no crackles. Indwelling Curran catheter has been placed, patient has produced 600 mL and urine output the last 24 hours. He remains on 0.9 normal saline at a rate of 75 ML per hour, he was fluid resuscitated yesterday with 2 L of IV fluid boluses. He has had no further nausea and vomiting overnight, CT of the abdomen and pelvis showed large bowel fluid levels consistent with ileus and diarrhea not significantly different from recent exam, and no evidence of mechanical bowel obstruction. There was minimal scarring and subsegmental atelectasis at the lung bases without change. Nephrology has been consulted, repeat blood gas today has been reviewed showing pO2 of 140, pCO2 of 29, and pH of 7.33, this was done and FiO2 of 20%, and this is an improved acid-base balance with residual metabolic acidosis. Overnight one of patient's blood cultures also showed gram-positive cocci in clusters, and patient was started on empiric antibiotics and he is currently on cefepime, vancomycin, and Flagyl. On today's labs, his white count is 14.5, hemoglobin is 10.4, INR is 1.4, sodium is 144, potassium is 3.1, chloride is 1:15, CO2 is 14.4, BUN is 78, creatinine is 2.8, slightly improved renal profile compared yesterday's level. Glucose level is 110, he Medrol has been discontinued and patient is currently on once daily dose of Decadron 6 mg daily. His AST and ALT are within normal limits, alk phos is improving and is down to 135. Procan SR level is 0.38, his urinalysis showed possibility of urinary tract infection. CT of the brain showed mild diffuse age-related cerebral atrophy On 04/01/2021 patient seen in follow-up on medical surgical floor. he is more awake, however he still very confused, he keeps repeating the same words, on room air, with a pulse ox of 96%, vital signs are stable, no fever or chills. Lung sounds are positive for diminished breath sounds at the bases, mild crackles at the bases. 7 reviewed, white blood cell count is down to 11.3, hemoglobin is 9.7, INR is elevated at 1.5, serum sodium is 152, potassium is 3.2, chloride is 120, CO2 is 16.8, BUN 65, and creatinine is down to 1.5. Pro- calcitonin level was negative at 0.38 however patient had positive blood cultures and was initially covered with a combination of cefepime, vancomycin and Flagyl. Also found to have a positive urinary tract infection, urine culture is pending, blood cultures resulted and Staphylococcus epidermidis, followup blood cultures from 03/30/2021 again showed gram-positive cocci in clusters. ID service is following, nephrology is following. Yesterday patient had a CT of the brain showed no acute intracranial hemorrhage or midline shift, mild diffuse age-related cerebral atrophy. Otherwise stable from pulmonary perspective, breathing comfortably. Patient still has a right foot IV, and PICC line placement attempt was unsuccessful, currently awaiting midline placement. On 04/02/2021 patient is seen in follow-up on medical surgical floor. He remains confused, but does not appear to be in any respiratory distress. Is currently on room air with pulse ox of 98-100%, afebrile, hemodynamically he is stable, his renal function is improving however his sodium is significantly increased up to 161, patient is currently on D5W infusion at a rate of 1:30 ML per hour, he remains on empiric antibiotics in the form of cefepime and oral Flagyl. The blood culture showed staph epidermidis, and coag is negative staph, urine culture has shown no growth. Has had no fever or chills, lung sounds are clear. Today's CBC is still pending. His pro-calcitonin level from 3 days ago on 03/30/2021 was not significantly elevated at 0.38. Abdomen is soft, no nausea or vomiting, patient is indwelling catheter in, he has produced 700 mL and urine output over the last 24 hours. He continues on prophylactic Lovenox 30 mg daily, his Decadron can be discontinued as there is no significant evidence of pneumonia. Objective - Vital Signs Vital signs: Vital Signs Temp 97.3 F L 04/02/21 10:00 Pulse 87 04/02/21 10:00 Resp 16 04/02/21 10:00 BP 134/84 04/02/21 10:00 Pulse Ox 98 04/02/21 10:00 Intake & Output 04/01/21 04/02/21 04/02/21 18:59 06:59 18:59 Intake Total 1100 1340 Output Total 700 Balance -700 1100 1340 Weight 89.811 kg Intake: Intake, IV Titration 1100 1340 Amount Cefepime 2 gm In Sodium 100 100 Chloride 0.9% 100 ml @ 25 mls/hr IVPB Q12HR [facility] Rx #:[id number] Dextrose 5% in Water 1, 1040 000 ml @ 130 mls/hr IV . [id number] [facility] Rx#:[id number] Dextrose 5% in Water 1, 900 000 ml @ 75 mls/hr IV . [id number] [facility] with Sodium Bicarb (1 Meq/ml) 150 ml Rx#:[id number] Magnesium Sulfate-D5w Pmx 200 1 gm In Dextrose/Water 1 100ml.bag @ 100 mls/hr IVPB Q1H [facility] Rx#: [id number] levETIRAcetam IV 1,000 mg 100 In Saline 1 100ml.bag @ 400 mls/hr IVPB HS [facility] Rx #:[id number] Output: Urine 700 Other: Voiding Method Diaper Diaper Indwelling Catheter Incontinent Incontinent # Voids 2 - Exam GENERAL EXAM: Alert, confused, but breathing comfortably, 65-year-old white male, on room air, with a pulse ox of 96% HEAD: Normocephalic/atraumatic. EYES: Normal reaction of pupils, equal size. Conjunctiva pink, sclera white. NOSE: Clear with pink turbinates. MOUTH: dry oral mucous membranes THROAT: No erythema or exudates. NECK: No masses, no JVD, no thyroid enlargement, no adenopathy. CHEST: No chest wall deformity. Symmetrical expansion. LUNGS: Equal air entry with diminished breath sounds at bilateral bases, no crackles CVS: Regular rate and rhythm, normal S1 and S2, no gallops, no murmurs, no rubs ABDOMEN: Soft, nontender. No hepatosplenomegaly, normal bowel sounds, no guarding or rigidity. Midabdominal healed abdominal incision from previous history of Crohn's disease and bowel resections EXTREMITIES: No clubbing, no edema, no cyanosis, 2+ pulses and upper and lower extremities. MUSCULOSKELETAL: Muscle strength and tone normal. SPINE: No scoliosis or deformity SKIN: No rashes CENTRAL NERVOUS SYSTEM: Alert and oriented -3. No focal deficits, tone is normal in all 4 extremities. PSYCHIATRIC: Alert and oriented -2, confused - Labs CBC & Chem 7: 04/01/21 06:06 04/02/21 06:34 Labs: Abnormal Lab Results - Last 24 Hours (Table) 04/01/21 04/01/21 04/02/21 Range/Units 16:55 21:16 06:34 Sodium 161 H* (137-145) mmol/L Potassium 3.0 L (3.5-5.1) mmol/L Chloride 130 H (98-107) mmol/L BUN 39 H (9-20) mg/dL Glucose 62 L (74-99) mg/dL POC Glucose (mg/dL) 100 H 162 H (75-99) mg/dL 04/02/21 Range/Units 11:47 Sodium (137-145) mmol/L Potassium (3.5-5.1) mmol/L Chloride (98-107) mmol/L BUN (9-20) mg/dL Glucose (74-99) mg/dL POC Glucose (mg/dL) 133 H (75-99) mg/dL Microbiology - Last 24 Hours (Table) 04/01/21 11:17 Urine Culture - Final Urine,Catheterized 03/29/21 16:40 Blood Culture - Preliminary Blood No Growth after 72 hours 03/30/21 18:58 Blood Culture Gram Stain - Preliminary Blood Blood Culture - Preliminary Coagulase Negative Staph Assessment and Plan Plan: Assessment: #1. Acute COVID-19 infection, without evidence of pneumonia on the chest x-ray, chest x-ray shows persistent small right pleural effusion without other significant abnormality. Onset of symptoms is approximately 2 weeks ago. Patient is vaccinated with Artemio & Artemio vaccine. Not a candidate for Remdesivir related to length of symptoms, no evidence of pneumonia on the chest x-ray and acute kidney injury #2. Gram-positive bacteremia, with a gram-positive cocci in clusters, blood culture resulted in staph epidermidis, however patient follow blood culture is still positive for gram-positive cocci in clusters, current antibiotic coverage is with cefepime and Flagyl. Was covered with vancomycin initially. ID service is following and managing #3. Nausea and vomiting, CT of abdomen showed possible ileus, but no evidence of mechanical obstruction, improved #4. Hypernatremia, related to dehydration, and normal saline IV infusion, nephrology is following, patient is currently on D5W at a rate of 1:30 ML per hour #5. Acute kidney injury related to ATN, and severe dehydration, improving #6. Acute metabolic acidosis, related to severe dehydration and ATN and acute kidney injury, improving #7. Previous history of Crohn's disease with multiple bowel resections #8. Recent hospitalization in November for dehydration, small bowel obstruction, and acute kidney injury #9. Possible component of chronic kidney disease, most recently recovered from his recent episode in November, was seen by nephrology during that admission #10. Questionable history of COPD, remote history of smoking, patient denies any chronic lung disease #11. Confusion, dyspnea, possibly related to metabolic encephalopathy, CT of the brain showed no acute findings #12. Diabetes mellitus type 2 #13. History of CVA/TIA #14. GERD/reflux #15. History of back surgery #16. History of seizures following a brain bleed in 2017 Plan: From pulmonary perspective patient has remained stable Remains on room air, no worsening dyspnea or cough We can discontinue the IV Decadron Today's labs have been reviewed, renal function is improving, Serum sodium is up significantly, patient is on D5W at 1:30 ML per hour, Nephrology recommendations for IV fluid management No fever or chills, Antibiotics per ID service recommendations No significant pulmonary complaints Pulmonary service will sign off and follow on as-needed basis Neuroloogy is following in regards to altered mentation please refer to the consultation note I performed a history & physical examination of the patient and discussed their management with my nurse practitioner, Malini Wooten. I reviewed the nurse practitioner's note and agree with the documented findings and plan of care. Lung sounds are positive for dim breath sounds throughout the lung sood. The findings and the impression was discussed with the patient. I attest to the documentation by the nurse practitioner. Time with Patient: Less than 30
--- NOTE | 2021-04-02 14:21 | P.PN ---
Subjective Progress Note Date: 04/02/21 03/31/2021 Patient is evaluated today resting in bed. He is alert 0 he is lethargic and also is agitated at times. However there is no respiratory distress and his oxygen saturation was actually 97% on room air however he 2 L oxygen on him. He was able to tell me is that he does have a headache. Pupils are dilated they are reactive to light and accommodating to distance. Apparently during this hospital stay patient has had increasing confusion and family is concerned, we did order a brain CT without contrast today there was no acute intracranial hemorrhage or midline shift there is mild diffuse age-related cerebral atrophy redemonstrated. There is a new right acute maxillary sinusitis. Chest x-ray today shows bilateral lower lobe infiltrate and small effusion and correlation for COPD. Abdomen/Pelvis US shows nonobstructing bilateral nephrolithiasis. Patient was evaluated by nephrology today. Patient is also being followed closely by pulmonary services. Repeat blood gases today, additional labs include white count of 14.5, hemoglobin 10.4, INR 1.4, potassium 3.1, chloride 115, CO2 14.4, BUN 78.7, creatinine 2.8, glucose in the 150s, alk phos 135, CRP less than 0.30, LDH 174, pro calcitonin 0.38. Urinalysis today shows 1+ protein, large ketones, large leukocyte esterase, greater than 182 WBCs, few bacteria. Blood culture performed on the show Staphylococcus epidermidis, however 1 taken at the same time as negative. This is most likely contamination. Patient continues on IV cefepime, zinc, vitamin C, vitamin D, IV Decadron daily, Lovenox. He is on D5 with sodium bicarbonate at 75 mL per hour. Vanco was discontinued. Prognosis is guarded for this patient. 04/01/2021 Patient evaluated today resting in bed, he is more alert than yesterday, alert and oriented x 1. He is more cooperative, however, does not respond to commands well. Pupils are normal size today 3mm and equal reactive. Neurology consult was placed today and patient underwent an EEG which revealed background slowing suggestive of severe encephalopathy. There is no epileptiform discharges or seizure evident on EEG. Patient is now on room air with oxygen saturation of 97%, afebrile, heart rate 90 normal sinus rhythm, blood pressure 156/82. Repeat blood culture is positive for coagulase negative staph. Labs today reveal wbc count of 11.34, hemoglobin 9.7, INR of 1.5, sodium 152, potassium 3.2, chloride 120, CO2 6.8, BUN 65.3, creatinine 1.5, sugars in the 100s, magnesium 1.9. Ammonia level 9. Nursing staff is unclear if patient had a bowel movement this admission, however, there are positive bowel sounds and abdomen is soft and nontender. Patient does not appear to have a headache anymore today. Urinalysis revealed cloudy urine with 1+ protein, large blood, large luekocyte esterase, >182 WBC. Culture is currently pending. Failed attempt to place a PICC line today. Midline ordered. Nursing staff spoke with family today, denies any alcohol use, apparently since patients stroke his baseline mentation as family describes has been waxing and waning. Patient also has not been able to eat, we did consult speech therapy today for a bedside swallow exam, hopefully he can eat tomorrow, as he would also benefit from free water to help reduce serum sodium levels. Prognosis remains guarded. 04/02/2021 Patient evaluated today sitting up in the chair. He is alert 1 he does respond to his name however he is unable to state his name or date of . He is not responding to where he is or the date. Sodium level today is 161, D5W was increased to 1:30 and also an hour and oral bicarbonate was decreased to once daily. Sodium recheck later on this afternoon. Additional labs today, potassium 3.0, chloride 1:30, BUN 39, creatinine 0.98, blood sugar 133, magnesium 1.7. TSH was 1.80. Urine culture negative, UTI since been asymptomatic bacteriuria. Blood cultures were finalized as Streptococcus epidermidis and coagulase-negative staph preliminary, we will repeat blood cu ltures again. Continues on IV cefepime and by mouth Flagyl per ID services. PT evaluation recommends subacute rehab with 24/7 care. Speech therapy evaluation today recommends pured diet with nectar thick liquids, one-to-one, aspiration precautions sitting upright 90 with meds crushed in applesauce or yogurt. As patient is able to take his medications crushed with yogurt, okay by neurology, we'll recommend discontinuing Decadron as he is 98% on room air. Patient remains afebrile, heart rate 67, pressure 134/84. Prognosis remains guarded continue with neuro checks. Review of system is difficult to assess as patient is lethargic and unable to give appropriate verbal responses. All inpatient medications were reviewed and appropriate changes in these medications as dictated in the interval history and assessment and plan. PHYSICAL EXAMINATION: GENERAL: The patient is alert and oriented x1, he does not appear to be in distress, he is lethargic. Well developed, well nourished. HEENT: Pupils are round and equally reacting to light. Pupils are 3mm. EOMI. No scleral icterus. No conjunctival pallor. Normocephalic, atraumatic. No pharyngeal erythema. No thyromegaly. CARDIOVASCULAR: S1 and S2 present. No murmurs, rubs, or gallops. PULMONARY: Chest is clear to auscultation, no wheezing or crackles. Diminished aeration. ABDOMEN: Soft, nontender, nondistended, normoactive bowel sounds. No palpable organomegaly. MUSCULOSKELETAL: No joint swelling or deformity. EXTREMITIES: No cyanosis, clubbing, or pedal edema. NEUROLOGICAL: Gross neurological examination did not reveal any focal deficits. SKIN: No rashes. Kerlex wrapped around foot where IV access is. Assessment and plan Assessment Acute COVID-19 infection, there is no evidence of pneumonia on chest x-ray he is now on room air. Respiratory alkalosis secondary to above, improving Acute metabolic encephalopathy related to COVID-19 infection as well as component of metabolic acidosis secondary to dehydration, uremia. Nausea and vomiting, improving, CT of abdomen showed possible ileus, no evidence for mechanical obstruction Acute kidney injury related to acute tubular necrosis secondary to dehydration which is improved, creatinine today 0.98 Acute metabolic acidosis secondary to severe dehydration as well as kidney injury and tubular necrosis Hypokalemia, secondary to poor oral intake Hypernatremia Positive blood culture with staph epi, possible contamination, repeat blood culture showing coagulase negative staph, will repeat cultures again for clearing of infection. History of Crohn's disease History of bowel resection Possible history of COPD, demonstrated on x-ray, normal history of smoking History of CVA/TIA with residual weakness 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 GERD GI Prophylaxis: Protonix DVT Prophylaxis: Lovenox Plan Continue zinc vitamins, Decadron discontinued Continue on IV antibiotics, D5 infusion increased Sodium bicarbonate oral decreased to oral. Replace potassium Neuro checks Continue all other supportive care Multiple consultations including ID pulmonary and nephrology, and neurology Midline insertion PT/OT consultation Speech consultation Diet advanced to Puree with nectar thick liquis Subacute rehab on discharge once medically stable Prognosis guarded for this patient Objective - Vital Signs Vital signs: Vital Signs Temp 97.5 F L 04/02/21 06:00 Pulse 77 04/02/21 06:00 Resp 17 04/02/21 06:00 BP 154/83 04/02/21 06:00 Pulse Ox 100 04/02/21 06:00 Intake & Output 04/01/21 04/02/21 04/02/21 18:59 06:59 18:59 Intake Total 1100 Output Total 700 Balance -700 1100 Weight 89.811 kg Intake: Intake, IV Titration 1100 Amount Cefepime 2 gm In Sodium 100 Chloride 0.9% 100 ml @ 25 mls/hr IVPB Q12HR [facility] Rx #:[id number] Dextrose 5% in Water 1, 900 000 ml @ 75 mls/hr IV . [id number] [facility] with Sodium Bicarb (1 Meq/ml) 150 ml Rx#:[id number] levETIRAcetam IV 1,000 mg 100 In Saline 1 100ml.bag @ 400 mls/hr IVPB HS [facility] Rx #:[id number] Output: Urine 700 Other: Voiding Method Diaper Diaper Incontinent Incontinent # Voids 2 - Labs CBC & Chem 7: 04/01/21 06:06 04/02/21 06:34 Labs: Abnormal Lab Results - Last 24 Hours (Table) 04/01/21 04/01/21 04/01/21 Range/Units 06:06 06:06 11:30 WBC 11.34 H (4.50-10.00) X 10*3/uL RBC 3.12 L (4.40-5.60) X 10*6/uL Hgb 9.7 L (13.0-17.0) g/dL Hct 29.0 L (39.6-50.0) % RDW 16.2 H (11.5-14.5) % Absolute Nucleated RBC 0.03 H (0.00-0.00) X 10*3/uL Immature Gran # 0.21 H (0.00-0.04) X 10*3/uL Eosinophils # 0.01 L (0.04-0.35) X 10*3/uL NRBC/100 WBC Diff 0.3 H (0.0-0.0) /100 WBCS PT 15.0 H (9.0-12.0) sec INR 1.5 H (<1.2) Sodium 152 H (135-145) mmol/L Potassium 3.2 L (3.5-5.5) mmol/L Chloride 120 H (96-109) mmol/L Carbon Dioxide 16.8 L (20.0-27.5) mmol/L BUN 65.3 H (9.0-27.0) mg/dL Est GFR (CKD-EPI)AfAm 55.4 L (60.0-200.0) Est GFR (CKD-EPI)NonAf 47.8 L (60.0-200.0) BUN/Creatinine Ratio 43.53 H (12.00-20.00) Ratio Glucose (74-99) mg/dL POC Glucose (mg/dL) (75-99) mg/dL Calcium 8.1 L (8.7-10.3) mg/dL Albumin 3.5 L (3.8-4.9) g/dL Albumin/Globulin Ratio 1.09 L (1.60-3.17) g/dL 04/01/21 04/01/21 04/02/21 Range/Units 16:55 21:16 06:34 WBC (4.50-10.00) X 10*3/uL RBC (4.40-5.60) X 10*6/uL Hgb (13.0-17.0) g/dL Hct (39.6-50.0) % RDW (11.5-14.5) % Absolute Nucleated RBC (0.00-0.00) X 10*3/uL Immature Gran # (0.00-0.04) X 10*3/uL Eosinophils # (0.04-0.35) X 10*3/uL NRBC/100 WBC Diff (0.0-0.0) /100 WBCS PT (9.0-12.0) sec INR (<1.2) Sodium 161 H* (135-145) mmol/L Potassium 3.0 L (3.5-5.5) mmol/L Chloride 130 H (96-109) mmol/L Carbon Dioxide (20.0-27.5) mmol/L BUN 39 H (9.0-27.0) mg/dL Est GFR (CKD-EPI)AfAm (60.0-200.0) Est GFR (CKD-EPI)NonAf (60.0-200.0) BUN/Creatinine Ratio (12.00-20.00) Ratio Glucose 62 L (74-99) mg/dL POC Glucose (mg/dL) 100 H 162 H (75-99) mg/dL Calcium (8.7-10.3) mg/dL Albumin (3.8-4.9) g/dL Albumin/Globulin Ratio (1.60-3.17) g/dL Microbiology - Last 24 Hours (Table) 03/29/21 16:40 Blood Culture - Preliminary Blood No Growth after 72 hours 03/30/21 18:58 Blood Culture Gram Stain - Preliminary Blood Blood Culture - Preliminary Coagulase Negative Staph 04/01/21 11:17 Urine Culture - Preliminary Urine,Catheterized
--- NOTE | 2021-04-02 15:48 | P.PN ---
Subjective Progress Note Date: 04/02/21 The patient is seen at bedside and per nurse his condition is about the same. Objective - Vital Signs Vital signs: Vital Signs Temp 97.9 F 04/02/21 13:14 Pulse 85 04/02/21 13:14 Resp 22 04/02/21 13:14 BP 150/81 04/02/21 13:14 Pulse Ox 100 04/02/21 13:14 Intake & Output 04/01/21 04/02/21 04/02/21 18:59 06:59 18:59 Intake Total 1100 1340 Output Total 700 750 Balance -700 1100 590 Weight 89.811 kg Intake: Intake, IV Titration 1100 1340 Amount Cefepime 2 gm In Sodium 100 100 Chloride 0.9% 100 ml @ 25 mls/hr IVPB Q12HR [facility] Rx #:[id number] Dextrose 5% in Water 1, 1040 000 ml @ 130 mls/hr IV . Q7H42M [facility] Rx#:[id number] Dextrose 5% in Water 1, 900 000 ml @ 75 mls/hr IV . [id number] [facility]A with Sodium Bicarb (1 Meq/ml) 150 ml Rx#:[id number] Magnesium Sulfate-D5w Pmx 200 1 gm In Dextrose/Water 1 100ml.bag @ 100 mls/hr IVPB Q1H [facility] Rx#: [id number] levETIRAcetam IV 1,000 mg 100 In Saline 1 100ml.bag @ 400 mls/hr IVPB HS [facility]A Rx #:[id number] Output: Urine 700 750 Other: Voiding Method Diaper Diaper Indwelling Catheter Incontinent Incontinent # Voids 2 - Exam GENERAL: The patient is lying in bed and does not seem in acute distress. NEUROLOGICAL: Is limited because of his cooperation. Higher mental function: The patient is awake, alert, oriented to self. He did not respond to place or time. He kept repeating his name. He was able follow some simple commands. Language is limited. No neglect. Cranial nerves: The pupils are round, equal and reactive to light. Visual sood could not assess. EOM he was tracking throught the room and no obvious nystagmus. No facial weakness. Rest of cranial nerves are limited because of his condition. Motor: Gait is deferred. The strength is lifting all extremities above gravity and no obvious focal weakness (could not assess individual muscle). Normal tone and bulk. No spontaneous movement. Cerebellum: Could not assess. Sensation: Could not assess. Reflexes (right/left): 1+ throughout. Plantars are mute bilaterally. WORK-UP: Na+ is 161 (prior to that 152 and on presentation 137) TSH: 1.880 Ammnia is 9 Urine analysis is the leukocyte esterase was large, urine white blood cells more than 182, urine white blood cell clumps is FUO, urine bacteria is that a few SARS Covid to PCR is detected. RSV PCR and Influeza A/B are not detected. Initial ABG is the pCO2 was 16, bicarbonate is 10, pH is 7.4, pO2 is 180 CT of the head is reported as no acute intracranial hemorrhage or midline shift. There is mild diffuse age-related cerebral atrophy redemonstrated. New acute maxillary sinusitis. I personally reviewed the CT of the head and there is no acute or subacute ischemia and there is no interictal parenchymal hemorrhages seen. Routine EEG on 04/01/21: Abnormal routine EEG. The background slowing is suggestive of Severe Encephalopathy. There Is No Focal Slowing, Epileptiform Discharges or Seizure in the EEG. Clinical Correlation Is Recommended - Labs CBC & Chem 7: 04/01/21 06:06 04/02/21 06:34 Labs: Abnormal Lab Results - Last 24 Hours (Table) 04/01/21 04/01/21 04/02/21 Range/Units 16:55 21:16 06:34 Sodium 161 H* (137-145) mmol/L Potassium 3.0 L (3.5-5.1) mmol/L Chloride 130 H (98-107) mmol/L BUN 39 H (9-20) mg/dL Glucose 62 L (74-99) mg/dL POC Glucose (mg/dL) 100 H 162 H (75-99) mg/dL 04/02/21 Range/Units 11:47 Sodium (137-145) mmol/L Potassium (3.5-5.1) mmol/L Chloride (98-107) mmol/L BUN (9-20) mg/dL Glucose (74-99) mg/dL POC Glucose (mg/dL) 133 H (75-99) mg/dL Microbiology - Last 24 Hours (Table) 04/01/21 11:17 Urine Culture - Final Urine,Catheterized 03/29/21 16:40 Blood Culture - Preliminary Blood No Growth after 72 hours 03/30/21 18:58 Blood Culture Gram Stain - Preliminary Blood Blood Culture - Preliminary Coagulase Negative Staph Assessment and Plan Assessment: * Altered mental status likely due to multifactorial: Metabolic encephalopathy as well as hypoxic encephalopathy from the COVID-19 pneumonia and medication use (Steroids) * Acute hypernateremia likely from dehydration * History of seizure (had on seizure in 2017) from intraparechymal bleed and is on Keppra * History of intraparenchymal bleed (was evaluated by [facility]) and no intervention according to * Acute kidney injury * Type 2 diabetes * History of chronic kidney disease * Previous Crohn's disease with multiple bowel resection Plan: * Continue home dose of Keppra 500mg daily and 1000mg qhs. * CT of the head on 03/31/21 is reported as no acute intracranial hemorrhage or midline shift. There is mild diffuse age-related cerebral atrophy redemonstrated. New acute maxillary sinusitis. I personally reviewed the CT of the head and there is no acute or subacute ischemia and there is no interictal parenchymal hemorrhages seen. * Routine EEG on 04/01/21: Abnormal routine EEG. The background slowing is suggestive of Severe Encephalopathy. There Is No Focal Slowing, Epileptiform Discharges or Seizure in the EEG. * Q4 hour neuro checks. * Regarding hypernatremia will defer management to Nephrology and Primary team. * Pulmonary team is on board. * Will defer the rest of medical management to the primary team. * Upon discharge, patient to continue to follow-up with his neurologist (over at [facility]). The plan is discussed with the patient's nurse and primary team (nurse practioner). Will follow-up sporadically. Steven Ballard M.D. Neuro-Hospitalist Time with Patient: Less than 30
[2021-04-02 16:42] LABS: Glucose,Whole Blood 199 mg/dL (75-99)
[2021-04-02 18:30] LABS: African American GFR (CKD) >90 (>60 ml/min/1.73 sqM); Anion Gap 11 mmol/L; Blood Urea Nitrogen 33 mg/dL (9-20); Calcium 8.3 mg/dL (8.4-10.2); Carbon Dioxide 23 mmol/L (22-30); Chloride 126 mmol/L (98-107); Glucose 191 mg/dL (74-99); Non-African American GFR(CKD) 89 (>60 ml/min/1.73 sqM); Potassium 3.2 mmol/L (3.5-5.1); Sodium 160 mmol/L (137-145)
[2021-04-02 20:38] LABS: Glucose,Whole Blood 97 mg/dL (75-99)
[2021-04-02] MEDS: INSULIN DETEMIR (LEVEMIR) 100 UNIT/ML SYR SQ SCH (21:07)
--- NOTE | 2021-04-02 23:24 | PN ---
PROGRESS NOTE DATE OF SERVICE: 04/02/2021 REASON FOR FOLLOWUP: Ileus and UTI. INTERVAL HISTORY: The patient is afebrile. The patient is currently breathing comfortably on room air. The patient denies having any chest pain, shortness of breath or cough. Abdominal pain is currently controlled. No diarrhea. PHYSICAL EXAMINATION: Blood pressure 119/82 with a pulse of 90, temperature 97.9. He is 98% on room air. General description is an elderly male lying in bed in no distress. Respiratory system: Unlabored breathing, decreased intensity of breath sounds. No wheeze. Heart S1, S2. Regular rate and rhythm. Abdomen soft, no tenderness. Extremities with no edema of the feet. LABS: Blood culture with Staphylococcus epidermidis. DIAGNOSTIC IMPRESSION AND PLAN: 1. Patient with positive blood culture with Staphylococcus epidermidis, likely skin contaminant. Patient has no clinical disease to go along with it. No need for vancomycin. 2. Patient with an ileus and a question of a urinary tract infection; however, urine cultures came back negative as well. The patient is on empiric cefepime and Flagyl. Transition to oral antibiotic provided his symptoms improve. Continue with supportive care. MMODL / IJN: [id number] /
[2021-04-03] MEDS: DEXTROSE 5% IN WATER 1,000 ML IV SCH ×3 (00:22→22:11)
[2021-04-03 07:20] LABS: Glucose,Whole Blood 175 mg/dL (75-99)
[2021-04-03] MEDS: ENOXAPARIN 30 MG/0.3 ML SYRINGE SQ SCH (08:31)
[2021-04-03] MEDS: PANTOPRAZOLE 40 MG/10 ML VIAL IVP SCH (08:31)
[2021-04-03] MEDS: CHOLECALCIFEROL 25 MCG (1000 IU) TABLET PO SCH (08:31)
[2021-04-03] MEDS: ASCORBIC ACID 500 MG TAB PO SCH ×2 (08:31→22:09)
[2021-04-03] MEDS: metroNIDAZOLE 500 MG TAB PO SCH ×3 (08:31→22:09)
[2021-04-03] MEDS: ATORVASTATIN 20 MG TAB PO SCH (08:31)
[2021-04-03] MEDS: CEFEPIME 2 GM in SODIUM CHLORIDE 0.9% 100 ML IVPB SCH ×2 (08:31→22:10)
[2021-04-03] MEDS: ZINC SULFATE 220 MG CAP PO SCH (08:31)
[2021-04-03] MEDS: INSULIN ASPART (NovoLOG) 100 UNIT/ML VIAL SQ SCH ×7 (08:32→22:10)
[2021-04-03] MEDS: levETIRAcetam 500 MG TAB PO SCH ×2 (08:33→22:09)
[2021-04-03] MEDS: NORTRIPTYLINE 10 MG CAP PO SCH ×2 (08:33→22:10)
[2021-04-03] MEDS ORDERED: SODIUM BICARBONATE TAB 650 MG TAB PO SCH (09:00)
[2021-04-03] MEDS: SYMBICORT 160-4.5 MCG INHALER INHALATION SCH ×2 (09:10→20:34)
[2021-04-03] MEDS: ALBUTEROL HFA INHALER INHALATION SCH ×4 (09:10→20:34)
[2021-04-03 10:45] LABS: Basophils # (A) 0.02 X 10*3/uL (0.00-0.10); Basophils % (A) 0.2 %; Eosinophils # (A) 0.03 X 10*3/uL (0.04-0.35); Eosinophils % (A) 0.3 %; HCT 30.7 % (39.6-50.0); HGB 9.7 g/dL (13.0-17.0); Lymphocytes # (A) 3.07 X 10*3/uL (0.90-5.00); Lymphocytes % (A) 34.5 %; MCH 30.2 pg (27.0-32.0); MCHC 31.6 g/dL (32.0-37.0); MCV 95.6 fL (80.0-97.0); Mean Platelet Volume 10.5 fL (9.5-12.2); Monocytes # (A) 1.08 X 10*3/uL (0.20-1.00); Monocytes % (A) 12.1 %; Neutrophils # (A) 4.62 X 10*3/uL (1.80-7.70); Neutrophils % (A) 52.1 %; Platelet Count 188 X 10*3/uL (140-440); RBC 3.21 X 10*6/uL (4.40-5.60); RDW 17.2 % (11.5-14.5); WBC 8.89 X 10*3/uL (4.50-10.00)
[2021-04-03 10:56] LABS: C Reactive Protein 0.4 mg/dL (0.00-0.80); Magnesium 1.7 mg/dL (1.5-2.4)
[2021-04-03 11:47] LABS: Glucose,Whole Blood 185 mg/dL (75-99)
--- NOTE | 2021-04-03 12:12 | P.PN ---
Subjective Progress Note Date: 04/03/21 68-year-old male patient with past medical history of Crohn's disease status post multiple bowel resections, history of recent hospitalization for acute kidney injury related to hypovolemia and small bowel obstruction, diabetes mellitus type 2, history of BPH status post TURP, remote history of smoking who presented to the emergency department on 03/29/2021 with complaints of weakness for the past 2 weeks. According to the ED record patient was also complaining of some dyspnea on presentation. He was having a difficult time walking across a room without getting very short of breath. He denied any chest pain, no fever or chills. He reports some yellow colored phlegm production. He is vaccinated with Artemio & Artemio vaccine, single dose. The dates are unknown, patient is a patient of Dr. Lorenz, he is short of breath, he is confused this morning, he is a poor historian. His chest x-ray on admission showed persistent small right pleural effusion with no other significant abnormality. Patient denies any chronic lung problems. He is on Symbicort at home on a regular basis, he was started on IV Solu-Medrol, azithromycin in the emergency department. In addition patient reportedly had extensive nausea, vomiting and diarrhea at home. She tested positive for COVID-19 in the emergency department, he is RSV and influenza A and B were negative, his renal function was significantly abnormal with evidence of acute kidney injury and the BUN of 79 and creatinine of 2.9, potassium level was 3.1, sodium was 137, right was 107, CO2 was 11, d-dimer 0.63, INR is 1.2, BUN of 12.9, hemoglobin of 14.4. Earlier this morning he was on room air, maintaining O2 saturations at 92-98%, afebrile, blood pressures were on the lower side with systolic in the 90s and diastolic in the 50s. During my evaluation patient is restless very confused, he is dyspneic, and this was a change from earlier exam according to the nursing staff. He required to be placed on supplemental oxygen and he was satting 82% on 3 L and FiO2 has subsequently been increased to 6 L. This morning's labs revealed worsening renal function, with BUN of 81 and creatinine 3.37, potassium is 3.2, CO2 is only 12. Abdomen is soft, nontender, the patient did have vomiting on midnight shift. Appears very dehydrated On 03/31/2021 patient seen in follow-up on medical surgical floor, he is lethargic, and he is confused, but appears to be in no acute distress. Currently on 3 L of oxygen pulse ox of 94-100%, he is afebrile, hemodynamically he is stable, breathing is nonlabored, lung sounds reveal diminished breath sounds at bilateral bases, no crackles. Indwelling Curran catheter has been placed, patient has produced 600 mL and urine output the last 24 hours. He remains on 0.9 normal saline at a rate of 75 ML per hour, he was fluid resuscitated yesterday with 2 L of IV fluid boluses. He has had no further nausea and vomiting overnight, CT of the abdomen and pelvis showed large bowel fluid levels consistent with ileus and diarrhea not significantly different from recent exam, and no evidence of mechanical bowel obstruction. There was minimal scarring and subsegmental atelectasis at the lung bases without change. Nephrology has been consulted, repeat blood gas today has been reviewed showing pO2 of 140, pCO2 of 29, and pH of 7.33, this was done and FiO2 of 20%, and this is an improved acid-base balance with residual metabolic acidosis. Overnight one of patient's blood cultures also showed gram-positive cocci in clusters, and patient was started on empiric antibiotics and he is currently on cefepime, vancomycin, and Flagyl. On today's labs, his white count is 14.5, hemoglobin is 10.4, INR is 1.4, sodium is 144, potassium is 3.1, chloride is 1:15, CO2 is 14.4, BUN is 78, creatinine is 2.8, slightly improved renal profile compared yesterday's level. Glucose level is 110, he Medrol has been discontinued and patient is currently on once daily dose of Decadron 6 mg daily. His AST and ALT are within normal limits, alk phos is improving and is down to 135. Procan SR level is 0.38, his urinalysis showed possibility of urinary tract infection. CT of the brain showed mild diffuse age-related cerebral atrophy On 04/01/2021 patient seen in follow-up on medical surgical floor. he is more awake, however he still very confused, he keeps repeating the same words, on room air, with a pulse ox of 96%, vital signs are stable, no fever or chills. Lung sounds are positive for diminished breath sounds at the bases, mild crackles at the bases. 7 reviewed, white blood cell count is down to 11.3, hemoglobin is 9.7, INR is elevated at 1.5, serum sodium is 152, potassium is 3.2, chloride is 120, CO2 is 16.8, BUN 65, and creatinine is down to 1.5. Pro- calcitonin level was negative at 0.38 however patient had positive blood cultures and was initially covered with a combination of cefepime, vancomycin and Flagyl. Also found to have a positive urinary tract infection, urine culture is pending, blood cultures resulted and Staphylococcus epidermidis, followup blood cultures from 03/30/2021 again showed gram-positive cocci in clusters. ID service is following, nephrology is following. Yesterday patient had a CT of the brain showed no acute intracranial hemorrhage or midline shift, mild diffuse age-related cerebral atrophy. Otherwise stable from pulmonary perspective, breathing comfortably. Patient still has a right foot IV, and PICC line placement attempt was unsuccessful, currently awaiting midline placement. On 04/02/2021 patient is seen in follow-up on medical surgical floor. He remains confused, but does not appear to be in any respiratory distress. Is currently on room air with pulse ox of 98-100%, afebrile, hemodynamically he is stable, his renal function is improving however his sodium is significantly increased up to 161, patient is currently on D5W infusion at a rate of 1:30 ML per hour, he remains on empiric antibiotics in the form of cefepime and oral Flagyl. The blood culture showed staph epidermidis, and coag is negative staph, urine culture has shown no growth. Has had no fever or chills, lung sounds are clear. Today's CBC is still pending. His pro-calcitonin level from 3 days ago on 03/30/2021 was not significantly elevated at 0.38. Abdomen is soft, no nausea or vomiting, patient is indwelling catheter in, he has produced 700 mL and urine output over the last 24 hours. He continues on prophylactic Lovenox 30 mg daily, his Decadron can be discontinued as there is no significant evidence of pneumonia. On 04/03/2021 patient seen in follow-up on medical surgical floor, she is sitting up in the recliner, his mentation is improving, he was able to tell me he is on [facility], and that the month is March. A bit slow to answer, still a bit foggy, however she is improving. Afebrile, hemodynamically he is stable, denies any shortness of breath, lung sounds reveal minimal crackles at the right base. No rhonchi or wheezing, we stopped his steroids yesterday, he remains on D5 W at 130 ML per hour, he is currently on Flagyl, and cefepime for empiric antibiotic coverage, his blood cultures resulted and staph epidermidis secondary to skin contamination. His vancomycin has been discontinued, abdomen is soft, no nausea or vomiting, his been tolerating oral intake, he is on a modified diet. Curran catheter is in place, and has produced 1.3 L in urine output over last 24 hours, he still has the 18-gauge in his right foot, and the Batting Machine Operator has not been able to put a midline catheter in place, and she was unsuccessful PICC line placement. Urine is soft, nontender. His BMP results are still pending for today. Objective - Vital Signs Vital signs: Vital Signs Temp 98.1 F 04/03/21 10:00 Pulse 86 04/03/21 10:00 Resp 18 04/03/21 10:00 BP 118/71 04/03/21 10:00 Pulse Ox 99 04/03/21 10:00 Intake & Output 04/02/21 04/03/21 04/03/21 18:59 06:59 18:59 Intake Total 1340 Output Total 750 625 Balance 590 -625 Intake: Intake, IV Titration 1340 Amount Cefepime 2 gm In Sodium 100 Chloride 0.9% 100 ml @ 25 mls/hr IVPB Q12HR [facility] Rx #:[id number] Dextrose 5% in Water 1, 1040 000 ml @ 130 mls/hr IV . Q7H42M [facility] Rx#:[id number] Magnesium Sulfate-D5w Pmx 200 1 gm In Dextrose/Water 1 100ml.bag @ 100 mls/hr IVPB Q1H [facility] Rx#: [id number] Output: Urine 750 625 Other: Voiding Method Indwelling Catheter Indwelling Catheter Indwelling Catheter # Bowel Movements 0 - Exam GENERAL EXAM: Alert, slow to respond, but orientation has improved, and patient is able to tell me he is in the hospital, and the month is March, breathing comfortably, 65-year-old white male, on room air, with a pulse ox of 96% HEAD: Normocephalic/atraumatic. EYES: Normal reaction of pupils, equal size. Conjunctiva pink, sclera white. NOSE: Clear with pink turbinates. MOUTH: dry oral mucous membranes THROAT: No erythema or exudates. NECK: No masses, no JVD, no thyroid enlargement, no adenopathy. CHEST: No chest wall deformity. Symmetrical expansion. LUNGS: Equal air entry with diminished breath sounds at bilateral bases, no crackles CVS: Regular rate and rhythm, normal S1 and S2, no gallops, no murmurs, no rubs ABDOMEN: Soft, nontender. No hepatosplenomegaly, normal bowel sounds, no guarding or rigidity. Midabdominal healed abdominal incision from previous history of Crohn's disease and bowel resections EXTREMITIES: No clubbing, no edema, no cyanosis, 2+ pulses and upper and lower extremities. Right foot 18-gauge peripheral IV with 5% dextrose solution infus ing at a rate of 1:30 ML per hour MUSCULOSKELETAL: Muscle strength and tone normal. SPINE: No scoliosis or deformity SKIN: No rashes CENTRAL NERVOUS SYSTEM: Alert and oriented -3. No focal deficits, tone is normal in all 4 extremities. PSYCHIATRIC: Alert and oriented -2, confused - Labs CBC & Chem 7: 04/03/21 07:04 04/02/21 17:44 Labs: Abnormal Lab Results - Last 24 Hours (Table) 04/02/21 04/02/21 04/03/21 Range/Units 16:39 17:44 07:04 RBC 3.21 L (4.40-5.60) X 10*6/uL Hgb 9.7 L (13.0-17.0) g/dL Hct 30.7 L (39.6-50.0) % MCHC 31.6 L (32.0-37.0) g/dL RDW 17.2 H (11.5-14.5) % Absolute Nucleated RBC 0.03 H (0.00-0.00) X 10*3/uL Immature Gran # 0.07 H (0.00-0.04) X 10*3/uL Monocytes # 1.08 H (0.20-1.00) X 10*3/uL Eosinophils # 0.03 L (0.04-0.35) X 10*3/uL NRBC/100 WBC Diff 0.3 H (0.0-0.0) /100 WBCS Sodium 160 H (137-145) mmol/L Potassium 3.2 L (3.5-5.1) mmol/L Chloride 126 H (98-107) mmol/L BUN 33 H (9-20) mg/dL Glucose 191 H (74-99) mg/dL POC Glucose (mg/dL) 199 H (75-99) mg/dL Calcium 8.3 L (8.4-10.2) mg/dL 04/03/21 04/03/21 Range/Units 07:18 11:32 RBC (4.40-5.60) X 10*6/uL Hgb (13.0-17.0) g/dL Hct (39.6-50.0) % MCHC (32.0-37.0) g/dL RDW (11.5-14.5) % Absolute Nucleated RBC (0.00-0.00) X 10*3/uL Immature Gran # (0.00-0.04) X 10*3/uL Monocytes # (0.20-1.00) X 10*3/uL Eosinophils # (0.04-0.35) X 10*3/uL NRBC/100 WBC Diff (0.0-0.0) /100 WBCS Sodium (137-145) mmol/L Potassium (3.5-5.1) mmol/L Chloride (98-107) mmol/L BUN (9-20) mg/dL Glucose (74-99) mg/dL POC Glucose (mg/dL) 175 H 185 H (75-99) mg/dL Calcium (8.4-10.2) mg/dL Microbiology - Last 24 Hours (Table) 03/29/21 16:40 Blood Culture - Preliminary Blood No Growth after 96 hours 03/30/21 18:58 Blood Culture Gram Stain - Final Blood Blood Culture - Final Staphylococcus epidermidis 04/01/21 11:17 Urine Culture - Final Urine,Catheterized Assessment and Plan Plan: Assessment: #1. Acute COVID-19 infection, without evidence of pneumonia on the chest x-ray, chest x-ray shows persistent small right pleural effusion without other significant abnormality. Onset of symptoms is approximately 2 weeks ago. Patient is vaccinated with Artemio & Artmeio vaccine. Not a candidate for Remdesivir related to length of symptoms, no evidence of pneumonia on the chest x-ray and acute kidney injury #2. Gram-positive bacteremia, with a gram-positive cocci in clusters, blood culture resulted in staph epidermidis, however patient follow blood culture is still positive for gram-positive cocci in clusters, current antibiotic coverage is with cefepime and Flagyl. Was covered with vancomycin initially. ID service is following and managing #3. Nausea and vomiting, CT of abdomen showed possible ileus, but no evidence of mechanical obstruction, improved #4. Hypernatremia, related to dehydration, and normal saline IV infusion, nephrology is following, patient is currently on D5W at a rate of 130 ML per hour #5. Acute kidney injury related to ATN, and severe dehydration, improving #6. Acute metabolic acidosis, related to severe dehydration and ATN and acute kidney injury, improving #7. Previous history of Crohn's disease with multiple bowel resections #8. Recent hospitalization in November for dehydration, small bowel obstruction, and acute kidney injury #9. Possible component of chronic kidney disease, most recently recovered from his recent episode in November, was seen by nephrology during that admission #10. Questionable history of COPD, remote history of smoking, patient denies any chronic lung disease #11. Confusion, dyspnea, possibly related to metabolic encephalopathy, CT of the brain showed no acute findings, improving #12. Diabetes mellitus type 2 #13. History of CVA/TIA #14. GERD/reflux #15. History of back surgery #16. History of seizures following a brain bleed in 2017 Plan: No worsening dyspnea or cough Patient remains on room air, and maintaining stable O2 saturations above 95% We discontinued his Decadron yesterday His mentation is improving, awaiting results of today's serum sodium and other electrolytes IV fluids per nephrology Breathing is comfortable, Vital signs are stable, no fever or chills Provide supervision with meals, maintain aspiration precautions Patient continues on modified diet No nausea or vomiting abdomen is soft Pulmonary service will sign off and follow on as-needed basis I performed a history & physical examination of the patient and discussed their management with my nurse practitioner, Malini Wooten. I reviewed the nurse practitioner's note and agree with the documented findings and plan of care. Lung sounds are positive for dim breath sounds throughout the lung sood. The findings and the impression was discussed with the patient. I attest to the documentation by the nurse practitioner. Time with Patient: Less than 30
--- NOTE | 2021-04-03 12:53 | P.PN ---
Subjective Progress Note Date: 04/03/21 Follow for hypernatremia. Sitting in the chair. Objective - Vital Signs Vital signs: Vital Signs Temp 98.1 F 04/03/21 10:00 Pulse 86 04/03/21 10:00 Resp 18 04/03/21 10:00 BP 118/71 04/03/21 10:00 Pulse Ox 99 04/03/21 10:00 Intake & Output 04/02/21 04/03/21 04/03/21 18:59 06:59 18:59 Intake Total 1340 Output Total 750 625 Balance 590 -625 Intake: Intake, IV Titration 1340 Amount Cefepime 2 gm In Sodium 100 Chloride 0.9% 100 ml @ 25 mls/hr IVPB Q12HR [facility] Rx #:[id number] Dextrose 5% in Water 1, 1040 000 ml @ 130 mls/hr IV . Q7H42M [facility]A Rx#:[id number] Magnesium Sulfate-D5w Pmx 200 1 gm In Dextrose/Water 1 100ml.bag @ 100 mls/hr IVPB Q1H [facility] Rx#: [id number] Output: Urine 750 625 Other: Voiding Method Indwelling Catheter Indwelling Catheter Indwelling Catheter # Bowel Movements 0 - Exam No acute distress S1-S2 heard Lungs clear No edema - Labs CBC & Chem 7: 04/03/21 07:04 04/02/21 17:44 Labs: Abnormal Lab Results - Last 24 Hours (Table) 04/02/21 04/02/21 04/03/21 Range/Units 16:39 17:44 07:04 RBC 3.21 L (4.40-5.60) X 10*6/uL Hgb 9.7 L (13.0-17.0) g/dL Hct 30.7 L (39.6-50.0) % MCHC 31.6 L (32.0-37.0) g/dL RDW 17.2 H (11.5-14.5) % Absolute Nucleated RBC 0.03 H (0.00-0.00) X 10*3/uL Immature Gran # 0.07 H (0.00-0.04) X 10*3/uL Monocytes # 1.08 H (0.20-1.00) X 10*3/uL Eosinophils # 0.03 L (0.04-0.35) X 10*3/uL NRBC/100 WBC Diff 0.3 H (0.0-0.0) /100 WBCS Sodium 160 H (137-145) mmol/L Potassium 3.2 L (3.5-5.1) mmol/L Chloride 126 H (98-107) mmol/L BUN 33 H (9-20) mg/dL Glucose 191 H (74-99) mg/dL POC Glucose (mg/dL) 199 H (75-99) mg/dL Calcium 8.3 L (8.4-10.2) mg/dL 04/03/21 04/03/21 Range/Units 07:18 11:32 RBC (4.40-5.60) X 10*6/uL Hgb (13.0-17.0) g/dL Hct (39.6-50.0) % MCHC (32.0-37.0) g/dL RDW (11.5-14.5) % Absolute Nucleated RBC (0.00-0.00) X 10*3/uL Immature Gran # (0.00-0.04) X 10*3/uL Monocytes # (0.20-1.00) X 10*3/uL Eosinophils # (0.04-0.35) X 10*3/uL NRBC/100 WBC Diff (0.0-0.0) /100 WBCS Sodium (137-145) mmol/L Potassium (3.5-5.1) mmol/L Chloride (98-107) mmol/L BUN (9-20) mg/dL Glucose (74-99) mg/dL POC Glucose (mg/dL) 175 H 185 H (75-99) mg/dL Calcium (8.4-10.2) mg/dL Microbiology - Last 24 Hours (Table) 03/29/21 16:40 Blood Culture - Preliminary Blood No Growth after 96 hours 03/30/21 18:58 Blood Culture Gram Stain - Final Blood Blood Culture - Final Staphylococcus epidermidis 04/01/21 11:17 Urine Culture - Final Urine,Catheterized Assessment and Plan Assessment: #1 acute kidney injury secondary to septic ATN resolved. #2 hypernatremia secondary to decreased by mouth intake. Doubt diabetes insipidus with no polyuria. #3 metabolic acidosis resolved #4 hypokalemia on replacement #5 staph epi bacteremia Plan: #1 D5 water increase to 130 ML's an hour yesterday. Continue with the current rate. #2 encourage by mouth intake. #3 DDAVP 1 g today, for hypernatremia correction.
[2021-04-03 13:45] LABS: African American GFR (CKD) >90 (>60 ml/min/1.73 sqM); Anion Gap 9 mmol/L; Blood Urea Nitrogen 22 mg/dL (9-20); Carbon Dioxide 19 mmol/L (22-30); Chloride 125 mmol/L (98-107); Glucose 160 mg/dL (74-99); Non-African American GFR(CKD) 88 (>60 ml/min/1.73 sqM); Sodium 153 mmol/L (137-145)
[2021-04-03 13:56] LABS: Potassium 4.2 mmol/L (3.5-5.1)
[2021-04-03] MEDS: DESMOPRESSIN ACETATE 4 MCG/ML VIAL (MDV) IV SCH (14:21)
--- NOTE | 2021-04-03 14:47 | P.DS ---
Providers Date of admission: 03/29/21 17:54 Attending physician: Shirley Gonsalez Consults: 03/29/21 19:10 Consult Physician Routine Consulting Provider: Juan F Ballard Consult Reason/Comments: copd Do you want consulting provider notified?: Yes 03/29/21 19:12 Consult Physician Stat Consulting Provider: Jacob Park Consult Reason/Comments: covid Do you want consulting provider notified?: Yes 03/30/21 13:07 Consult Physician Urgent Consulting Provider: Luther Greer Consult Reason/Comments: acute kidney injury, COVID infection Do you want consulting provider notified?: Yes 04/01/21 11:57 Consult Physician Routine Consulting Provider: Steven Ballard Consult Reason/Comments: altered mental status, COVID 19, MEL Do you want consulting provider notified?: Yes Primary care physician: Adela Lorenz [facility] Course: 03/31/2021 Patient is evaluated today resting in bed. He is alert 0 he is lethargic and also is agitated at times. However there is no respiratory distress and his oxygen saturation was actually 97% on room air however he 2 L oxygen on him. He was able to tell me is that he does have a headache. Pupils are dilated they are reactive to light and accommodating to distance. Apparently during this hospital stay patient has had increasing confusion and family is concerned, we did order a brain CT without contrast today there was no acute intracranial hemorrhage or midline shift there is mild diffuse age-related cerebral atrophy redemonstrated. There is a new right acute maxillary sinusitis. Chest x-ray today shows bilateral lower lobe infiltrate and small effusion and correlation for COPD. Abdomen/Pelvis US shows nonobstructing bilateral nephrolithiasis. Patient was evaluated by nephrology today. Patient is also being followed closely by pulmonary services. Repeat blood gases today, additional labs include white count of 14.5, hemoglobin 10.4, INR 1.4, potassium 3.1, chloride 115, CO2 14.4, BUN 78.7, creatinine 2.8, glucose in the 150s, alk phos 135, CRP less than 0.30, LDH 174, pro calcitonin 0.38. Urinalysis today shows 1+ protein, large ketones, large leukocyte esterase, greater than 182 WBCs, few bacteria. Blood culture performed on the show Staphylococcus epidermidis, however 1 taken at the same time as negative. This is most likely contamination. Patient continues on IV cefepime, zinc, vitamin C, vitamin D, IV Decadron daily, Lovenox. He is on D5 with sodium bicarbonate at 75 mL per hour. Vanco was discontinued. Prognosis is guarded for this patient. 04/01/2021 Patient evaluated today resting in bed, he is more alert than yesterday, alert and oriented x 1. He is more cooperative, however, does not respond to commands well. Pupils are normal size today 3mm and equal reactive. Neurology consult was placed today and patient underwent an EEG which revealed background slowing suggestive of severe encephalopathy. There is no epileptiform discharges or seizure evident on EEG. Patient is now on room air with oxygen saturation of 97%, afebrile, heart rate 90 normal sinus rhythm, blood pressure 156/82. Repeat blood culture is positive for coagulase negative staph. Labs today reveal wbc count of 11.34, hemoglobin 9.7, INR of 1.5, sodium 152, potassium 3.2, chloride 120, CO2 6.8, BUN 65.3, creatinine 1.5, sugars in the 100s, magnesium 1.9. Ammonia level 9. Nursing staff is unclear if patient had a bowel movement this admission, however, there are positive bowel sounds and abdomen is soft and nontender. Patient does not appear to have a headache anymore today. Urinalysis revealed cloudy urine with 1+ protein, large blood, large luekocyte esterase, >182 WBC. Culture is currently pending. Failed attempt to place a PICC line today. Midline ordered. Nursing staff spoke with family today, denies any alcohol use, apparently since patients stroke his baseline mentation as family describes has been waxing and waning. Patient also has not been able to eat, we did consult speech therapy today for a bedside swallow exam, hopefully he can eat tomorrow, as he would also benefit from free water to help reduce serum sodium levels. Prognosis remains guarded. 04/02/2021 Patient evaluated today sitting up in the chair. He is alert 1 he does respond to his name however he is unable to state his name or date of . He is not responding to where he is or the date. Sodium level today is 161, D5W was increased to 1:30 and also an hour and oral bicarbonate was decreased to once daily. Sodium recheck later on this afternoon. Additional labs today, potassium 3.0, chloride 1:30, BUN 39, creatinine 0.98, blood sugar 133, magnesium 1.7. TSH was 1.80. Urine culture negative, UTI since been asymptomatic bacteriuria. Blood cultures were finalized as Streptococcus epidermidis and coagulase-negative staph preliminary, we will repeat blood cultures again. Continues on IV cefepime and by mouth Flagyl per ID services. PT evaluation recommends subacute rehab with 24/7 care. Speech therapy evaluation today recommends pured diet with nectar thick liquids, one-to-one, aspiration precautions sitting upright 90 with meds crushed in applesauce or yogurt. As patient is able to take his medications crushed with yogurt, okay by neurology, we'll recommend discontinuing Decadron as he is 98% on room air. Patient remains afebrile, heart rate 67, pressure 134/84. Prognosis remains guarded continue with neuro checks. 04/03/2021 Patient's mental status changes were secondary to polypharmacy including baclofen dose of which was cut down. Patient's Decadron was his continued with significant improvement in his mental status today patient is at his baseline patient will be discharged home with home care or the extended care facility depending on physical therapy and occupational therapy evaluation and case management evaluation. Kidney function did improve. Patient will be discharged on Ceftin for 5 more days completing total 10 day of therapy. is not requiring any oxygen patient doesn't have any significant symptoms from Covid 19 PHYSICAL EXAMINATION: GENERAL: The patient is alert and oriented x1-2. Well developed, well nourished. HEENT: Pupils are round and equally reacting to light. Pupils are 3mm. EOMI. No scleral icterus. No conjunctival pallor. Normocephalic, atraumatic. No pharyngeal erythema. No thyromegaly. CARDIOVASCULAR: S1 and S2 present. No murmurs, rubs, or gallops. PULMONARY: Chest is clear to auscultation, no wheezing or crackles. Diminished aeration. ABDOMEN: Soft, nontender, nondistended, normoactive bowel sounds. No palpable or ganomegaly. MUSCULOSKELETAL: No joint swelling or deformity. EXTREMITIES: No cyanosis, clubbing, or pedal edema. NEUROLOGICAL: Gross neurological examination did not reveal any focal deficits. SKIN: No rashes. Kerlex wrapped around foot where IV access is. Assessment and plan Assessment COVID-19 infection, there is no evidence of pneumonia on chest x-ray he is now on room air. Respiratory alkalosis secondary to above, improving Acute metabolic encephalopathy related to COVID-19 infection, patient appears to have toxic encephalopathy from a high dose of baclofen and Decadron Decadron was discontinued baclofen dose was decreased Acute kidney injury related to acute tubular necrosis secondary to dehydration which is improved, creatinine today 0.98 Acute metabolic acidosis secondary to severe dehydration as well as kidney injury and tubular necrosis Hypokalemia, secondary to poor oral intake Hypernatremia Jean-Paul secondary to poor by mouth intake improved now Positive blood culture with staph epi, which is a contamination History of Crohn's disease CVA/TIA past with residual weakness appears to have some vascular dementia from that as well. 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 GERD GI Prophylaxis: Protonix DVT Prophylaxis: Lovenox Patient Condition at Discharge: Fair Plan - Discharge Summary New Discharge Prescriptions: New Ascorbic Acid [Vitamin C] 500 mg PO BID #30 tab Cefuroxime Axetil [Ceftin] 500 mg PO BID 4 Days #8 tab Zinc Sulfate [Orazinc] 220 mg PO DAILY #30 cap Cholecalciferol [Vitamin D3 (25 Mcg = 1000 Iu)] 25 mcg PO DAILY #30 tablet Baclofen [Lioresal] 5 mg PO BID PRN #20 tab PRN Reason: Mild Spasms Continue levETIRAcetam [Keppra] 500 mg PO DAILY levETIRAcetam [Keppra] 1,000 mg PO HS Nitroglycerin Sl Tabs [Nitrostat] 0.4 mg SL Q5M PRN PRN Reason: Chest Pain Albuterol Sulfate [Albuterol Sulfate Hfa] 2 puff INHALATION RT-Q4H PRN PRN Reason: Shortness Of Breath Insulin Lispro [humaLOG Kwikpen] See Protocol SQ AC-TID Budesonide/Formoterol Fumarate [Symbicort 160-4.5 Mcg Inhaler] 2 puff INHALATION RT-BID Pantoprazole Sodium [Protonix] 40 mg PO DAILY Nortriptyline HCl [Pamelor] 10 mg PO BID Atorvastatin [Lipitor] 20 mg PO DAILY Certolizumab Pegol [Cimzia] 400 mg SQ Q28D Insulin Glargine,Hum.rec.anlog [Lantus Solostar Pen] 25 unit SQ HS #0 Insulin Lispro [humaLOG Kwikpen] 5 unit SQ AC-TID Discontinued Baclofen [Lioresal] 20 mg PO BID Ciprofloxacin HCl [Cipro] 500 mg PO BID 10 Days #20 tab Discharge Medication List levETIRAcetam [Keppra] 500 mg PO DAILY 02/22/17 [History] levETIRAcetam [Keppra] 1,000 mg PO HS 03/10/17 [History] Nitroglycerin Sl Tabs [Nitrostat] 0.4 mg SL Q5M PRN 04/26/17 [History] Albuterol Sulfate [Albuterol Sulfate Hfa] 2 puff INHALATION RT-Q4H PRN 01/21/20 [History] Insulin Lispro [humaLOG Kwikpen] See Protocol SQ AC-TID 01/21/20 [History] Budesonide/Formoterol Fumarate [Symbicort 160-4.5 Mcg Inhaler] 2 puff INHALATION RT-BID 05/08/20 [History] Pantoprazole Sodium [Protonix] 40 mg PO DAILY 05/08/20 [History] Atorvastatin [Lipitor] 20 mg PO DAILY 12/01/20 [History] Certolizumab Pegol [Cimzia] 400 mg SQ Q28D 12/01/20 [History] Nortriptyline HCl [Pamelor] 10 mg PO BID 12/01/20 [History] Insulin Glargine,Hum.rec.anlog [Lantus Solostar Pen] 25 unit SQ HS #0 12/09/20 [Rx] Insulin Lispro [humaLOG Kwikpen] 5 unit SQ AC-TID 03/29/21 [History] Ascorbic Acid [Vitamin C] 500 mg PO BID #30 tab 04/03/21 [Rx] Baclofen [Lioresal] 5 mg PO BID PRN #20 tab 04/03/21 [Rx] Cefuroxime Axetil [Ceftin] 500 mg PO BID 4 Days #8 tab 04/03/21 [Rx] Cholecalciferol [Vitamin D3 (25 Mcg = 1000 Iu)] 25 mcg PO DAILY #30 tablet 04/03/21 [Rx] Zinc Sulfate [Orazinc] 220 mg PO DAILY #30 cap 04/03/21 [Rx] Follow up Appointment(s)/Referral(s): TatyanaLoCayden, [NON-STAFF] - As Needed Adela Lorenz MD [Primary Care Provider] - 1-2 days
[2021-04-03 15:49] LABS: African American GFR (CKD) 80.6 (60.0-200.0); Anion Gap 17.7 mmol/L (10.00-18.00); BUN/Creat Ratio 22.27 Ratio (12.00-20.00); Blood Urea Nitrogen 24.5 mg/dL (9.0-27.0); Carbon Dioxide 15.3 mmol/L (20.0-27.5); Non-African American GFR(CKD) 69.6 (60.0-200.0); Potassium 3.7 mmol/L (3.5-5.5)
[2021-04-03 16:43] LABS: Glucose,Whole Blood 155 mg/dL (75-99)
--- NOTE | 2021-04-03 18:19 | P.PN ---
Subjective Progress Note Date: 04/03/21 The patient is seen at bedside and he feels he is doing better. Per nurse she was notified he is doing better by overnight nurse. Objective - Vital Signs Vital signs: Vital Signs Temp 98.1 F 04/03/21 10:00 Pulse 86 04/03/21 10:00 Resp 18 04/03/21 10:00 BP 118/71 04/03/21 10:00 Pulse Ox 99 04/03/21 10:00 Intake & Output 04/02/21 04/03/21 04/03/21 18:59 06:59 18:59 Intake Total 1340 Output Total 750 625 Balance 590 -625 Intake: Intake, IV Titration 1340 Amount Cefepime 2 gm In Sodium 100 Chloride 0.9% 100 ml @ 25 mls/hr IVPB Q12HR [facility]A Rx #:[id number] Dextrose 5% in Water 1, 1040 000 ml @ 130 mls/hr IV . Q7H42M [facility]A Rx#:[id number] Magnesium Sulfate-D5w Pmx 200 1 gm In Dextrose/Water 1 100ml.bag @ 100 mls/hr IVPB Q1H [facility]A Rx#: [id number] Output: Urine 750 625 Other: Voiding Method Indwelling Catheter Indwelling Catheter Indwelling Catheter # Bowel Movements 0 - Exam GENERAL: The patient is sitting in a chair and does not seem in acute distress. NEUROLOGICAL: Is limited because of his cooperation. Higher mental function: The patient is awake, alert, oriented to self. He stated he was in the hospital and stated the month is March. He stated the year is 2000. He was able follow some simple commands. No aphasia or neglect. Cranial nerves: The pupils are round, equal and reactive to light. Primary gaze for right eye is midline while left is exotropia. Visual sood are full to confrontation. EOM he was tracking throught the room and no obvious nystagmus. No facial weakness. Rest of cranial nerves are limited because of his condition. Motor: Gait is deferred. The strength is lifting all extremities above gravity and no obvious focal weakness Normal tone and bulk. No spontaneous movement. Cerebellum: Could not assess. Sensation: Could not assess. Reflexes (right/left): 1+ throughout. Plantars are mute bilaterally. WORK-UP: Na+ is 161 (prior to that 152 and on presentation 137) TSH: 1.880 Ammnia is 9 Urine analysis is the leukocyte esterase was large, urine white blood cells more than 182, urine white blood cell clumps is FUO, urine bacteria is that a few SARS Covid to PCR is detected. RSV PCR and Influeza A/B are not detected. Initial ABG is the pCO2 was 16, bicarbonate is 10, pH is 7.4, pO2 is 180 CT of the head is reported as no acute intracranial hemorrhage or midline shift. There is mild diffuse age-related cerebral atrophy redemonstrated. New acute maxillary sinusitis. I personally reviewed the CT of the head and there is no acute or subacute ischemia and there is no interictal parenchymal hemorrhages seen. Routine EEG on 04/01/21: Abnormal routine EEG. The background slowing is suggestive of Severe Encephalopathy. There Is No Focal Slowing, Epileptiform Discharges or Seizure in the EEG. Clinical Correlation Is Recommended - Labs CBC & Chem 7: 04/03/21 07:04 04/02/21 17:44 Labs: Abnormal Lab Results - Last 24 Hours (Table) 04/02/21 04/02/21 04/03/21 Range/Units 16:39 17:44 07:04 RBC 3.21 L (4.40-5.60) X 10*6/uL Hgb 9.7 L (13.0-17.0) g/dL Hct 30.7 L (39.6-50.0) % MCHC 31.6 L (32.0-37.0) g/dL RDW 17.2 H (11.5-14.5) % Absolute Nucleated RBC 0.03 H (0.00-0.00) X 10*3/uL Immature Gran # 0.07 H (0.00-0.04) X 10*3/uL Monocytes # 1.08 H (0.20-1.00) X 10*3/uL Eosinophils # 0.03 L (0.04-0.35) X 10*3/uL NRBC/100 WBC Diff 0.3 H (0.0-0.0) /100 WBCS Sodium 160 H (137-145) mmol/L Potassium 3.2 L (3.5-5.1) mmol/L Chloride 126 H (98-107) mmol/L BUN 33 H (9-20) mg/dL Glucose 191 H (74-99) mg/dL POC Glucose (mg/dL) 199 H (75-99) mg/dL Calcium 8.3 L (8.4-10.2) mg/dL 04/03/21 04/03/21 Range/Units 07:18 11:32 RBC (4.40-5.60) X 10*6/uL Hgb (13.0-17.0) g/dL Hct (39.6-50.0) % MCHC (32.0-37.0) g/dL RDW (11.5-14.5) % Absolute Nucleated RBC (0.00-0.00) X 10*3/uL Immature Gran # (0.00-0.04) X 10*3/uL Monocytes # (0.20-1.00) X 10*3/uL Eosinophils # (0.04-0.35) X 10*3/uL NRBC/100 WBC Diff (0.0-0.0) /100 WBCS Sodium (137-145) mmol/L Potassium (3.5-5.1) mmol/L Chloride (98-107) mmol/L BUN (9-20) mg/dL Glucose (74-99) mg/dL POC Glucose (mg/dL) 175 H 185 H (75-99) mg/dL Calcium (8.4-10.2) mg/dL Microbiology - Last 24 Hours (Table) 03/29/21 16:40 Blood Culture - Preliminary Blood No Growth after 96 hours 03/30/21 18:58 Blood Culture Gram Stain - Final Blood Blood Culture - Final Staphylococcus epidermidis 04/01/21 11:17 Urine Culture - Final Urine,Catheterized Assessment and Plan Assessment: * Altered mental status likely due to multifactorial: Metabolic encephalopathy as well as hypoxic encephalopathy from the COVID-19 pneumonia and medication use (Steroids)--mentation improving * Acute hypernateremia likely from dehydration * History of seizure (had on seizure in 2017) from intraparechymal bleed and is on Keppra * History of intraparenchymal bleed (was evaluated by [facility]) and no intervention according to * Acute kidney injury * Type 2 diabetes * History of chronic kidney disease * Previous Crohn's disease with multiple bowel resection Plan: * Continue home dose of Keppra 500mg daily and 1000mg qhs. * CT of the head on 03/31/21 is reported as no acute intracranial hemorrhage or midline shift. There is mild diffuse age-related cerebral atrophy redemonstrated. New acute maxillary sinusitis. I personally reviewed the CT of the head and there is no acute or subacute ischemia and there is no interictal parenchymal hemorrhages seen. * Routine EEG on 04/01/21: Abnormal routine EEG. The background slowing is suggestive of Severe Encephalopathy. There Is No Focal Slowing, Epileptiform Discharges or Seizure in the EEG. * Q4 hour neuro checks. * Regarding hypernatremia will defer management to Nephrology and Primary team. * Pulmonary team is on board. * Will defer the rest of medical management to the primary team. * Upon discharge, patient to continue to follow-up with his neurologist (over at [facility]). The plan is discussed with the patient's nurse. There is no further work-up from neurological perspective. Steven Ballard M.D. Neuro-Hospitalist Time with Patient: Less than 30
[2021-04-03 20:19] LABS: Glucose,Whole Blood 167 mg/dL (75-99)
[2021-04-03] MEDS: INSULIN DETEMIR (LEVEMIR) 100 UNIT/ML SYR SQ SCH (22:10)
--- NOTE | 2021-04-03 23:10 | PN ---
PROGRESS NOTE DATE OF SERVICE: 04/03/2021 REASON FOR FOLLOWUP: 1. Positive blood culture, likely contaminant. 2. UTI, ileus. INTERVAL HISTORY: The patient is afebrile. The patient is breathing more comfortably. He is currently on room air. Patient denies having any chest pain or no worsening cough or sputum production. Abdominal pain is currently controlled. No diarrhea. PHYSICAL EXAMINATION: Blood pressure 108/67, pulse of 80, temperature 98. He is 95% on room air. General description is an elderly male lying in bed in no distress. Respiratory system: Unlabored breathing, decreased breath sounds at the base. No wheeze. Heart S1, S2. Regular rate and rhythm. Abdomen soft, no tenderness. LABS: BUN of 22, creatinine 0.91. Blood culture repeat has been negative. DIAGNOSTIC IMPRESSION AND PLAN: 1. Patient with a positive blood culture, Staphylococcus epidermidis, likely skin contaminant. Repeat culture negative. Currently being monitored off vancomycin. 2. Patient with an ileus positive and there was concern for possible urinary tract infection. Culture has been negative. He is on flagyl and cefepime. Will transition to a short course of oral antibiotic on discharge. Continue with supportive care. MMODL / IJN: [id number] /
[2021-04-04] MEDS: DEXTROSE 5% IN WATER 1,000 ML IV SCH ×2 (01:30→08:44)
[2021-04-04 06:55] LABS: Glucose,Whole Blood 48 mg/dL (75-99)
[2021-04-04 07:04] LABS: Glucose,Whole Blood 78 mg/dL (75-99)
[2021-04-04] MEDS: SYMBICORT 160-4.5 MCG INHALER INHALATION SCH (08:02)
[2021-04-04] MEDS: ALBUTEROL HFA INHALER INHALATION SCH ×2 (08:02→11:43)
[2021-04-04] MEDS: CHOLECALCIFEROL 25 MCG (1000 IU) TABLET PO SCH (08:34)
[2021-04-04] MEDS: PANTOPRAZOLE 40 MG/10 ML VIAL IVP SCH (08:34)
[2021-04-04] MEDS: ATORVASTATIN 20 MG TAB PO SCH (08:34)
[2021-04-04] MEDS: INSULIN ASPART (NovoLOG) 100 UNIT/ML VIAL SQ SCH ×4 (08:34→12:08)
[2021-04-04] MEDS: metroNIDAZOLE 500 MG TAB PO SCH (08:34)
[2021-04-04] MEDS: ASCORBIC ACID 500 MG TAB PO SCH (08:34)
[2021-04-04] MEDS: ZINC SULFATE 220 MG CAP PO SCH (08:34)
[2021-04-04] MEDS: CEFEPIME 2 GM in SODIUM CHLORIDE 0.9% 100 ML IVPB SCH (08:35)
[2021-04-04] MEDS: ENOXAPARIN 30 MG/0.3 ML SYRINGE SQ SCH (08:35)
[2021-04-04] MEDS: NORTRIPTYLINE 10 MG CAP PO SCH (08:37)
[2021-04-04] MEDS: levETIRAcetam 500 MG TAB PO SCH (08:40)
[2021-04-04 09:29] VITALS: BP 121/75; PULSE 88; RESP 18; TEMP 98.1
--- NOTE | 2021-04-04 10:20 | P.DS ---
Providers Date of admission: 03/29/21 17:54 Attending physician: Shirley Gonsalez Consults: 03/29/21 19:10 Consult Physician Routine Consulting Provider: Juan F Ballard Consult Reason/Comments: copd Do you want consulting provider notified?: Yes 03/29/21 19:12 Consult Physician Stat Consulting Provider: Jacob Park Consult Reason/Comments: covid Do you want consulting provider notified?: Yes 03/30/21 13:07 Consult Physician Urgent Consulting Provider: Luther Greer Consult Reason/Comments: acute kidney injury, COVID infection Do you want consulting provider notified?: Yes 04/01/21 11:57 Consult Physician Routine Consulting Provider: Steven Ballard Consult Reason/Comments: altered mental status, COVID 19, MEL Do you want consulting provider notified?: Yes Primary care physician: Adela Lorenz [facility] Course: 03/31/2021 Patient is evaluated today resting in bed. He is alert 0 he is lethargic and also is agitated at times. However there is no respiratory distress and his oxygen saturation was actually 97% on room air however he 2 L oxygen on him. He was able to tell me is that he does have a headache. Pupils are dilated they are reactive to light and accommodating to distance. Apparently during this hospital stay patient has had increasing confusion and family is concerned, we did order a brain CT without contrast today there was no acute intracranial hemorrhage or midline shift there is mild diffuse age-related cerebral atrophy redemonstrated. There is a new right acute maxillary sinusitis. Chest x-ray today shows bilateral lower lobe infiltrate and small effusion and correlation for COPD. Abdomen/Pelvis US shows nonobstructing bilateral nephrolithiasis. Patient was evaluated by nephrology today. Patient is also being followed closely by pulmonary services. Repeat blood gases today, additional labs include white count of 14.5, hemoglobin 10.4, INR 1.4, potassium 3.1, chloride 115, CO2 14.4, BUN 78.7, creatinine 2.8, glucose in the 150s, alk phos 135, CRP less than 0.30, LDH 174, pro calcitonin 0.38. Urinalysis today shows 1+ protein, large ketones, large leukocyte esterase, greater than 182 WBCs, few bacteria. Blood culture performed on the show Staphylococcus epidermidis, however 1 taken at the same time as negative. This is most likely contamination. Patient continues on IV cefepime, zinc, vitamin C, vitamin D, IV Decadron daily, Lovenox. He is on D5 with sodium bicarbonate at 75 mL per hour. Vanco was discontinued. Prognosis is guarded for this patient. 04/01/2021 Patient evaluated today resting in bed, he is more alert than yesterday, alert and oriented x 1. He is more cooperative, however, does not respond to commands well. Pupils are normal size today 3mm and equal reactive. Neurology consult was placed today and patient underwent an EEG which revealed background slowing suggestive of severe encephalopathy. There is no epileptiform discharges or seizure evident on EEG. Patient is now on room air with oxygen saturation of 97%, afebrile, heart rate 90 normal sinus rhythm, blood pressure 156/82. Repeat blood culture is positive for coagulase negative staph. Labs today reveal wbc count of 11.34, hemoglobin 9.7, INR of 1.5, sodium 152, potassium 3.2, chloride 120, CO2 6.8, BUN 65.3, creatinine 1.5, sugars in the 100s, magnesium 1.9. Ammonia level 9. Nursing staff is unclear if patient had a bowel movement this admission, however, there are positive bowel sounds and abdomen is soft and nontender. Patient does not appear to have a headache anymore today. Urinalysis revealed cloudy urine with 1+ protein, large blood, large luekocyte esterase, >182 WBC. Culture is currently pending. Failed attempt to place a PICC line today. Midline ordered. Nursing staff spoke with family today, denies any alcohol use, apparently since patients stroke his baseline mentation as family describes has been waxing and waning. Patient also has not been able to eat, we did consult speech therapy today for a bedside swallow exam, hopefully he can eat tomorrow, as he would also benefit from free water to help reduce serum sodium levels. Prognosis remains guarded. 04/02/2021 Patient evaluated today sitting up in the chair. He is alert 1 he does respond to his name however he is unable to state his name or date of . He is not responding to where he is or the date. Sodium level today is 161, D5W was increased to 1:30 and also an hour and oral bicarbonate was decreased to once daily. Sodium recheck later on this afternoon. Additional labs today, potassium 3.0, chloride 1:30, BUN 39, creatinine 0.98, blood sugar 133, magnesium 1.7. TSH was 1.80. Urine culture negative, UTI since been asymptomatic bacteriuria. Blood cultures were finalized as Streptococcus epidermidis and coagulase-negative staph preliminary, we will repeat blood cultures again. Continues on IV cefepime and by mouth Flagyl per ID services. PT evaluation recommends subacute rehab with 24/7 care. Speech therapy evaluation today recommends pured diet with nectar thick liquids, one-to-one, aspiration precautions sitting upright 90 with meds crushed in applesauce or yogurt. As patient is able to take his medications crushed with yogurt, okay by neurology, we'll recommend discontinuing Decadron as he is 98% on room air. Patient remains afebrile, heart rate 67, pressure 134/84. Prognosis remains guarded continue with neuro checks. 04/03/2021 Patient's mental status changes were secondary to polypharmacy including baclofen dose of which was cut down. Patient's Decadron was his continued with significant improvement in his mental status today patient is at his baseline patient will be discharged home with home care or the extended care facility depending on physical therapy and occupational therapy evaluation and case management evaluation. Kidney function did improve. Patient will be discharged on Ceftin for 5 more days completing total 10 day of therapy. is not requiring any oxygen patient doesn't have any significant symptoms from Covid 19 04/04/2021 Patient is a on biologic agent for Crohn's disease which is pretty expensive and patient receives this injection once a month last received on 26 of March. This reason I'm unable to place him in subacute rehabilitation. The better plan would be hold off this medication as this only once a month and patient will follow-up with Dr. Wade and PCP as an outpatient, by the time if he is still requiring physical therapy we need to figure out alternate medication for Crohn's disease so that he can you his stay at subacute rehabitation for physical therapy needs. Now will hold off this biologic agent. PHYSICAL EXAMINATION: GENERAL: The patient is alert and oriented x1-2. Well developed, well nourished. HEENT: Pupils are round and equally reacting to light. Pupils are 3mm. EOMI. No scleral icterus. No conjunctival pallor. Normocephalic, atraumatic. No pharyngeal erythema. No thyromegaly. CARDIOVASCULAR: S1 and S2 present. No murmurs, rubs, or gallops. PULMONARY: Chest is clear to auscultation, no wheezing or crackles. Diminished aeration. ABDOMEN: Soft, nontender, nondistended, normoactive bowel sounds. No palpable organomegaly. MUSCULOSKELETAL: No joint swelling or deformity. EXTREMITIES: No cyanosis, clubbing, or pedal edema. NEUROLOGICAL: Gross neurological examination did not reveal any focal deficits. SKIN: No rashes. Kerlex wrapped around foot where IV access is. Assessment and plan Assessment COVID-19 infection, there is no evidence of pneumonia on chest x-ray he is now on room air. Respiratory alkalosis secondary to above, improving Acute metabolic encephalopathy related to COVID-19 infection, patient appears to have toxic encephalopathy from a high dose of baclofen and Decadron Decadron was discontinued baclofen dose was decreased Acute kidney injury related to acute tubular necrosis secondary to dehydration which is improved, creatinine today 0.98 Acute metabolic acidosis secondary to severe dehydration as well as kidney injury and tubular necrosis Hypokalemia, secondary to poor oral intake Hypernatremia :secondary to poor by mouth intake improved now Positive blood culture with staph epi, which is a contamination History of Crohn's disease CVA/TIA past with residual weakness appears to have some vascular dementia from that as well. 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 GERD GI Prophylaxis: Protonix DVT Prophylaxis: Lovenox Patient Condition at Discharge: Fair Plan - Discharge Summary New Discharge Prescriptions: New Ascorbic Acid [Vitamin C] 500 mg PO BID #30 tab Cefuroxime Axetil [Ceftin] 500 mg PO BID 4 Days #8 tab Zinc Sulfate [Orazinc] 220 mg PO DAILY #30 cap Cholecalciferol [Vitamin D3 (25 Mcg = 1000 Iu)] 25 mcg PO DAILY #30 tablet Baclofen [Lioresal] 5 mg PO BID PRN #20 tab PRN Reason: Mild Spasms Continue levETIRAcetam [Keppra] 500 mg PO DAILY levETIRAcetam [Keppra] 1,000 mg PO HS Nitroglycerin Sl Tabs [Nitrostat] 0.4 mg SL Q5M PRN PRN Reason: Chest Pain Albuterol Sulfate [Albuterol Sulfate Hfa] 2 puff INHALATION RT-Q4H PRN PRN Reason: Shortness Of Breath Insulin Lispro [humaLOG Kwikpen] See Protocol SQ AC-TID Budesonide/Formoterol Fumarate [Symbicort 160-4.5 Mcg Inhaler] 2 puff INHALATION RT-BID Pantoprazole Sodium [Protonix] 40 mg PO DAILY Nortriptyline HCl [Pamelor] 10 mg PO BID Atorvastatin [Lipitor] 20 mg PO DAILY Insulin Glargine,Hum.rec.anlog [Lantus Solostar Pen] 25 unit SQ HS #0 Insulin Lispro [humaLOG Kwikpen] 5 unit SQ AC-TID Discontinued Baclofen [Lioresal] 20 mg PO BID Certolizumab Pegol [Cimzia] 400 mg SQ Q28D Ciprofloxacin HCl [Cipro] 500 mg PO BID 10 Days #20 tab Discharge Medication List levETIRAcetam [Keppra] 500 mg PO DAILY 02/22/17 [History] levETIRAcetam [Keppra] 1,000 mg PO HS 03/10/17 [History] Nitroglycerin Sl Tabs [Nitrostat] 0.4 mg SL Q5M PRN 04/26/17 [History] Albuterol Sulfate [Albuterol Sulfate Hfa] 2 puff INHALATION RT-Q4H PRN 01/21/20 [History] Insulin Lispro [humaLOG Kwikpen] See Protocol SQ AC-TID 01/21/20 [History] Budesonide/Formoterol Fumarate [Symbicort 160-4.5 Mcg Inhaler] 2 puff INHALATION RT-BID 05/08/20 [History] Pantoprazole Sodium [Protonix] 40 mg PO DAILY 05/08/20 [History] Atorvastatin [Lipitor] 20 mg PO DAILY 12/01/20 [History] Nortriptyline HCl [Pamelor] 10 mg PO BID 12/01/20 [History] Insulin Glargine,Hum.rec.anlog [Lantus Solostar Pen] 25 unit SQ HS #0 12/09/20 [Rx] Insulin Lispro [humaLOG Kwikpen] 5 unit SQ AC-TID 03/29/21 [History] Ascorbic Acid [Vitamin C] 500 mg PO BID #30 tab 12/23/21 [Rx] Baclofen [Lioresal] 5 mg PO BID PRN #20 tab 04/03/21 [Rx] Cefuroxime Axetil [Ceftin] 500 mg PO BID 4 Days #8 tab 04/03/21 [Rx] Cholecalciferol [Vitamin D3 (25 Mcg = 1000 Iu)] 25 mcg PO DAILY #30 tablet 04/03/21 [Rx] Zinc Sulfate [Orazinc] 220 mg PO DAILY #30 cap 04/03/21 [Rx] Follow up Appointment(s)/Referral(s): Johana Wade MD [STAFF PHYSICIAN] - [facility]29[facility] - As Needed Adela Lorenz MD [Primary Care Provider] - 1-2 days Discharge Disposition: TRANSFER TO SNF/ECF
[2021-04-04 10:25] LABS: African American GFR (CKD) 107.9 (60.0-200.0); Anion Gap 12.6 mmol/L (10.00-18.00); BUN/Creat Ratio 20.13 Ratio (12.00-20.00); Blood Urea Nitrogen 16.1 mg/dL (9.0-27.0); Calcium 7.4 mg/dL (8.7-10.3); Carbon Dioxide 19.4 mmol/L (20.0-27.5); Non-African American GFR(CKD) 93.1 (60.0-200.0); Potassium 3.2 mmol/L (3.5-5.5)
[2021-04-04] MEDS: DESMOPRESSIN ACETATE 4 MCG/ML VIAL (MDV) IV SCH (10:26)
[2021-04-04 11:19] LABS: Glucose,Whole Blood 102 mg/dL (75-99)
--- NOTE | 2021-04-04 11:56 | P.PN ---
Subjective Progress Note Date: 04/04/21 Follow for hypernatremia. Sitting in the chair. Objective - Vital Signs Vital signs: Vital Signs Temp 98.1 F 04/04/21 08:51 Pulse 88 04/04/21 08:51 Resp 18 04/04/21 08:51 BP 121/75 04/04/21 08:51 Pulse Ox 100 04/04/21 08:51 Intake & Output 04/03/21 04/04/21 04/04/21 18:59 06:59 18:59 Intake Total 1560 Output Total 300 300 Balance 1260 -300 Weight 89.811 kg Intake: Intake, IV Titration 1560 Amount Dextrose 5% in Water 1, 1560 000 ml @ 130 mls/hr IV . Q7H42M [facility] Rx#:[id number] Output: Urine 300 300 Other: Voiding Method Indwelling Catheter Indwelling Catheter Indwelling Catheter # Bowel Movements 1 - Exam No acute distress S1-S2 heard Lungs clear No edema - Labs CBC & Chem 7: 04/03/21 07:04 04/04/21 05:50 Labs: Abnormal Lab Results - Last 24 Hours (Table) 04/03/21 04/03/21 04/03/21 Range/Units 07:04 12:48 16:41 Sodium 160 H 153 H (135-145) mmol/L Potassium (3.5-5.5) mmol/L Chloride 127 H 125 H (96-109) mmol/L Carbon Dioxide 15.3 L 19 L (20.0-27.5) mmol/L BUN 22 H (9-20) mg/dL BUN/Creatinine Ratio 22.27 H (12.00-20.00) Ratio Glucose 180 H 160 H (70-110) mg/dL POC Glucose (mg/dL) 155 H (75-99) mg/dL Calcium 8.0 L 8.0 L (8.7-10.3) mg/dL 04/03/21 04/04/21 04/04/21 Range/Units 20:18 05:50 06:42 Sodium 150 H (135-145) mmol/L Potassium 3.2 L (3.5-5.5) mmol/L Chloride 118 H (96-109) mmol/L Carbon Dioxide 19.4 L (20.0-27.5) mmol/L BUN (9-20) mg/dL BUN/Creatinine Ratio 20.13 H (12.00-20.00) Ratio Glucose 40 L* (70-110) mg/dL POC Glucose (mg/dL) 167 H 48 L (75-99) mg/dL Calcium 7.4 L (8.7-10.3) mg/dL 04/04/21 Range/Units 11:17 Sodium (135-145) mmol/L Potassium (3.5-5.5) mmol/L Chloride (96-109) mmol/L Carbon Dioxide (20.0-27.5) mmol/L BUN (9-20) mg/dL BUN/Creatinine Ratio (12.00-20.00) Ratio Glucose (70-110) mg/dL POC Glucose (mg/dL) 102 H (75-99) mg/dL Calcium (8.7-10.3) mg/dL Microbiology - Last 24 Hours (Table) 04/03/21 07:04 Blood Culture - Preliminary Blood No Growth after 24 hours 04/02/21 17:44 Blood Culture - Preliminary Blood No Growth after 24 hours 03/29/21 16:40 Blood Culture - Preliminary Blood No Growth after 120 hours 04/02/21 15:22 Blood Culture - Preliminary Blood No Growth after 24 hours Assessment and Plan Assessment: #1 acute kidney injury secondary to septic ATN resolved. #2 hypernatremia secondary to decreased by mouth intake. Doubt diabetes insipidus with no polyuria. #3 metabolic acidosis resolved #4 hypokalemia on replacement #5 staph epi bacteremia Plan: #1 D5 water at 130 ML's an hour. #2 encourage by mouth intake. #3 DDAVP 1 g today, for hypernatremia correction yesterday. #4 stable from nephrology for discharge
--- NOTE | 2021-04-04 13:02 | P.PN ---
Subjective Progress Note Date: 04/04/21 68-year-old male patient with past medical history of Crohn's disease status post multiple bowel resections, history of recent hospitalization for acute kidney injury related to hypovolemia and small bowel obstruction, diabetes mellitus type 2, history of BPH status post TURP, remote history of smoking who presented to the emergency department on 03/29/2021 with complaints of weakness for the past 2 weeks. According to the ED record patient was also complaining of some dyspnea on presentation. He was having a difficult time walking across a room without getting very short of breath. He denied any chest pain, no fever or chills. He reports some yellow colored phlegm production. He is vaccinated with Artemio & Artemio vaccine, single dose. The dates are unknown, patient is a patient of Dr. Lorenz, he is short of breath, he is confused this morning, he is a poor historian. His chest x-ray on admission showed persistent small right pleural effusion with no other significant abnormality. Patient denies any chronic lung problems. He is on Symbicort at home on a regular basis, he was started on IV Solu-Medrol, azithromycin in the emergency department. In addition patient reportedly had extensive nausea, vomiting and diarrhea at home. She tested positive for COVID-19 in the emergency department, he is RSV and influenza A and B were negative, his renal function was significantly abnormal with evidence of acute kidney injury and the BUN of 79 and creatinine of 2.9, potassium level was 3.1, sodium was 137, right was 107, CO2 was 11, d-dimer 0.63, INR is 1.2, BUN of 12.9, hemoglobin of 14.4. Earlier this morning he was on room air, maintaining O2 saturations at 92-98%, afebrile, blood pressures were on the lower side with systolic in the 90s and diastolic in the 50s. During my evaluation patient is restless very confused, he is dyspneic, and this was a change from earlier exam according to the nursing staff. He required to be placed on supplemental oxygen and he was satting 82% on 3 L and FiO2 has subsequently been increased to 6 L. This morning's labs revealed worsening renal function, with BUN of 81 and creatinine 3.37, potassium is 3.2, CO2 is only 12. Abdomen is soft, nontender, the patient did have vomiting on midnight shift. Appears very dehydrated On 03/31/2021 patient seen in follow-up on medical surgical floor, he is lethargic, and he is confused, but appears to be in no acute distress. Currently on 3 L of oxygen pulse ox of 94-100%, he is afebrile, hemodynamically he is stable, breathing is nonlabored, lung sounds reveal diminished breath sounds at bilateral bases, no crackles. Indwelling Curran catheter has been placed, patient has produced 600 mL and urine output the last 24 hours. He remains on 0.9 normal saline at a rate of 75 ML per hour, he was fluid resuscitated yesterday with 2 L of IV fluid boluses. He has had no further nausea and vomiting overnight, CT of the abdomen and pelvis showed large bowel fluid levels consistent with ileus and diarrhea not significantly different from recent exam, and no evidence of mechanical bowel obstruction. There was minimal scarring and subsegmental atelectasis at the lung bases without change. Nephrology has been consulted, repeat blood gas today has been reviewed showing pO2 of 140, pCO2 of 29, and pH of 7.33, this was done and FiO2 of 20%, and this is an improved acid-base balance with residual metabolic acidosis. Overnight one of patient's blood cultures also showed gram-positive cocci in clusters, and patient was started on empiric antibiotics and he is currently on cefepime, vancomycin, and Flagyl. On today's labs, his white count is 14.5, hemoglobin is 10.4, INR is 1.4, sodium is 144, potassium is 3.1, chloride is 1:15, CO2 is 14.4, BUN is 78, creatinine is 2.8, slightly improved renal profile compared yesterday's level. Glucose level is 110, he Medrol has been discontinued and patient is currently on once daily dose of Decadron 6 mg daily. His AST and ALT are within normal limits, alk phos is improving and is down to 135. Procan SR level is 0.38, his urinalysis showed possibility of urinary tract infection. CT of the brain showed mild diffuse age-related cerebral atrophy On 04/01/2021 patient seen in follow-up on medical surgical floor. he is more awake, however he still very confused, he keeps repeating the same words, on room air, with a pulse ox of 96%, vital signs are stable, no fever or chills. Lung sounds are positive for diminished breath sounds at the bases, mild crackles at the bases. 7 reviewed, white blood cell count is down to 11.3, hemoglobin is 9.7, INR is elevated at 1.5, serum sodium is 152, potassium is 3.2, chloride is 120, CO2 is 16.8, BUN 65, and creatinine is down to 1.5. Pro- calcitonin level was negative at 0.38 however patient had positive blood cultures and was initially covered with a combination of cefepime, vancomycin and Flagyl. Also found to have a positive urinary tract infection, urine culture is pending, blood cultures resulted and Staphylococcus epidermidis, followup blood cultures from 03/30/2021 again showed gram-positive cocci in clusters. ID service is following, nephrology is following. Yesterday patient had a CT of the brain showed no acute intracranial hemorrhage or midline shift, mild diffuse age-related cerebral atrophy. Otherwise stable from pulmonary perspective, breathing comfortably. Patient still has a right foot IV, and PICC line placement attempt was unsuccessful, currently awaiting midline placement. On 04/02/2021 patient is seen in follow-up on medical surgical floor. He remains confused, but does not appear to be in any respiratory distress. Is currently on room air with pulse ox of 98-100%, afebrile, hemodynamically he is stable, his renal function is improving however his sodium is significantly increased up to 161, patient is currently on D5W infusion at a rate of 1:30 ML per hour, he remains on empiric antibiotics in the form of cefepime and oral Flagyl. The blood culture showed staph epidermidis, and coag is negative staph, urine culture has shown no growth. Has had no fever or chills, lung sounds are clear. Today's CBC is still pending. His pro-calcitonin level from 3 days ago on 03/30/2021 was not significantly elevated at 0.38. Abdomen is soft, no nausea or vomiting, patient is indwelling catheter in, he has produced 700 mL and urine output over the last 24 hours. He continues on prophylactic Lovenox 30 mg daily, his Decadron can be discontinued as there is no significant evidence of pneumonia. On 04/03/2021 patient seen in follow-up on medical surgical floor, she is sitting up in the recliner, his mentation is improving, he was able to tell me he is on [facility], and that the month is March. A bit slow to answer, still a bit foggy, however she is improving. Afebrile, hemodynamically he is stable, denies any shortness of breath, lung sounds reveal minimal crackles at the right base. No rhonchi or wheezing, we stopped his steroids yesterday, he remains on D5 W at 130 ML per hour, he is currently on Flagyl, and cefepime for empiric antibiotic coverage, his blood cultures resulted and staph epidermidis secondary to skin contamination. His vancomycin has been discontinued, abdomen is soft, no nausea or vomiting, his been tolerating oral intake, he is on a modified diet. Curran catheter is in place, and has produced 1.3 L in urine output over last 24 hours, he still has the 18-gauge in his right foot, and the [employer] has not been able to put a midline catheter in place, and she was unsuccessful PICC line placement. Urine is soft, nontender. His BMP results are still pending for today. On 04/04/2021 patient seen in follow-up on medical surgical floor. He sitting up in bed, he is awake and alert, oriented 3, his confusion has significantly improved, he thinks he is being discharged to rehab today. Denies any shortness of breath, room air pulse ox is 100%, vital signs are stable, blood pressures 121/75, no fever or chills, lung sounds are clear, slightly diminished at the bases. No nausea or vomiting, his appetite has improved, he had a midline placed in his right before meals, he remains on D5W at 1:30 ML per hour, nephrology has been following, mentation has significantly improved. His labs have been reviewed, his serum sodium is down to 150, improving, potassium is 3.2, chloride is 118, BUN is 16.1, creatinine 0.8. His last LDH on 03/31/2021 was within normal limits at 174, CRP was less than 0.30. Pro-calcitonin level was negative at 0.09. Patient continues on combination of cefepime and Flagyl, follow blood cultures have been negative, urine culture has shown no growth. His blood cultures from 03/30/2021 showed Staphylococcus epidermidis possibly skin contaminant. ID service has been following. Objective - Vital Signs Vital signs: Vital Signs Temp 98.1 F 04/04/21 08:51 Pulse 88 04/04/21 08:51 Resp 18 04/04/21 08:51 BP 121/75 04/04/21 08:51 Pulse Ox 100 04/04/21 08:51 Intake & Output 04/03/21 04/04/21 04/04/21 18:59 06:59 18:59 Intake Total 1560 Output Total 300 300 Balance 1260 -300 Weight 89.811 kg Intake: Intake, IV Titration 1560 Amount Dextrose 5% in Water 1, 1560 000 ml @ 130 mls/hr IV . [id number] [facility] Rx#:[id number] Output: Urine 300 300 Other: Voiding Method Indwelling Catheter Indwelling Catheter Indwelling Catheter # Bowel Movements 1 - Exam GENERAL EXAM: Alert, oriented 3, 65-year-old white male, on room air with a pulse ox of 100%, breathing comfortably HEAD: Normocephalic/atraumatic. EYES: Normal reaction of pupils, equal size. Conjunctiva pink, sclera white. NOSE: Clear with pink turbinates. MOUTH: dry oral mucous membranes THROAT: No erythema or exudates. NECK: No masses, no JVD, no thyroid enlargement, no adenopathy. CHEST: No chest wall deformity. Symmetrical expansion. LUNGS: Equal air entry with diminished breath sounds at bilateral bases, no crackles CVS: Regular rate and rhythm, normal S1 and S2, no gallops, no murmurs, no rubs ABDOMEN: Soft, nontender. No hepatosplenomegaly, normal bowel sounds, no guarding or rigidity. Midabdominal healed abdominal incision from previous history of Crohn's disease and bowel resections EXTREMITIES: No clubbing, no edema, no cyanosis, 2+ pulses and upper and lower extremities. Right foot peripheral IV has been discontinued, patient currently has a right before meals midline catheter MUSCULOSKELETAL: Muscle strength and tone normal. SPINE: No scoliosis or deformity SKIN: No rashes CENTRAL NERVOUS SYSTEM: Alert and oriented -3. No focal deficits, tone is normal in all 4 extremities. PSYCHIATRIC: Alert and oriented -2, confused - Labs CBC & Chem 7: 04/03/21 07:04 04/04/21 05:50 Labs: Abnormal Lab Results - Last 24 Hours (Table) 04/03/21 04/03/21 04/03/21 Range/Units 07:04 12:48 16:41 Sodium 160 H 153 H (135-145) mmol/L Potassium (3.5-5.5) mmol/L Chloride 127 H 125 H (96-109) mmol/L Carbon Dioxide 15.3 L 19 L (20.0-27.5) mmol/L BUN 22 H (9-20) mg/dL BUN/Creatinine Ratio 22.27 H (12.00-20.00) Ratio Glucose 180 H 160 H (70-110) mg/dL POC Glucose (mg/dL) 155 H (75-99) mg/dL Calcium 8.0 L 8.0 L (8.7-10.3) mg/dL 04/03/21 04/04/21 04/04/21 Range/Units 20:18 05:50 06:42 Sodium 150 H (135-145) mmol/L Potassium 3.2 L (3.5-5.5) mmol/L Chloride 118 H (96-109) mmol/L Carbon Dioxide 19.4 L (20.0-27.5) mmol/L BUN (9-20) mg/dL BUN/Creatinine Ratio 20.13 H (12.00-20.00) Ratio Glucose 40 L* (70-110) mg/dL POC Glucose (mg/dL) 167 H 48 L (75-99) mg/dL Calcium 7.4 L (8.7-10.3) mg/dL 04/04/21 Range/Units 11:17 Sodium (135-145) mmol/L Potassium (3.5-5.5) mmol/L Chloride (96-109) mmol/L Carbon Dioxide (20.0-27.5) mmol/L BUN (9-20) mg/dL BUN/Creatinine Ratio (12.00-20.00) Ratio Glucose (70-110) mg/dL POC Glucose (mg/dL) 102 H (75-99) mg/dL Calcium (8.7-10.3) mg/dL Microbiology - Last 24 Hours (Table) 04/03/21 07:04 Blood Culture - Preliminary Blood No Growth after 24 hours 04/02/21 17:44 Blood Culture - Preliminary Blood No Growth after 24 hours 03/29/21 16:40 Blood Culture - Preliminary Blood No Growth after 120 hours 04/02/21 15:22 Blood Culture - Preliminary Blood No Growth after 24 hours Assessment and Plan Plan: Assessment: #1. Acute COVID-19 infection, without evidence of pneumonia on the chest x-ray, chest x-ray shows persistent small right pleural effusion without other significant abnormality. Onset of symptoms is approximately 2 weeks ago. Patient is vaccinated with Artemio & Artemio vaccine. Not a candidate for Remdesivir related to length of symptoms, no evidence of pneumonia on the chest x-ray and acute kidney injury #2. Gram-positive bacteremia, with a gram-positive cocci in clusters, blood culture resulted in staph epidermidis, however patient follow blood culture is still positive for gram-positive cocci in clusters, current antibiotic coverage is with cefepime and Flagyl. Was covered with vancomycin initially. ID service is following and managing #3. Nausea and vomiting, CT of abdomen showed possible ileus, but no evidence of mechanical obstruction, improved #4. Hypernatremia, related to dehydration, and normal saline IV infusion, nephrology is following, patient is currently on D5W at a rate of 130 ML per hour. Today's serum sodium is 150 #5. Acute kidney injury related to ATN, and severe dehydration, improving #6. Acute metabolic acidosis, related to severe dehydration and ATN and acute kidney injury, improving #7. Previous history of Crohn's disease with multiple bowel resections #8. Recent hospitalization in November for dehydration, small bowel obstruction, and acute kidney injury #9. Possible component of chronic kidney disease, most recently recovered from his recent episode in November, was seen by nephrology during that admission #10. Questionable history of COPD, remote history of smoking, patient denies any chronic lung disease #11. Confusion, dyspnea, possibly related to metabolic encephalopathy, CT of the brain showed no acute findings, significantly improved #12. Diabetes mellitus type 2 #13. History of CVA/TIA #14. GERD/reflux #15. History of back surgery #16. History of seizures following a brain bleed in 2017 Plan: Remains asymptomatic from pulmonary perspective Steroids have been discontinued Patient remains on room air, and maintaining stable O2 saturations above 95% His mentation has significantly improved, and patient is close to his baseline probably, he is oriented 3, IV fluids per nephrology, patient has had no further nausea or vomiting, he remains on D5W at 130 ML per hour Breathing is comfortable, Possible discharge to rehab today Pulmonary service will sign off and follow on as-needed basis I performed a history & physical examination of the patient and discussed their management with my nurse practitioner, Malini Wooten. I reviewed the nurse practitioner's note and agree with the documented findings and plan of care. Lung sounds are positive for dim breath sounds throughout the lung sood. The findings and the impression was discussed with the patient. I attest to the documentation by the nurse practitioner. Time with Patient: Less than 30
[2021-04-05] MEDS ORDERED: ENOXAPARIN 40 MG/0.4 ML SYRINGE SQ SCH (09:00)
--- NOTE | 2021-04-08 08:01 | CDI ---
Documentation Clarification Form Date: 04/08/2021 07:54:00 AM From: Trudy Galindo CCS, CCDS Admit Date: 03/29/2021 05:54:00 PM Patient Name: Ky Michaels Visit Number: [id number] Discharge Date: 04/04/2021 12:54:00 PM ATTENTION: The Clinical Documentation Specialists (CDI) and [facility] Coding Staff appreciate your assistance in clarifying documentation. Please respond to the clarification below the line at the bottom and electronically sign. The CDI & [facility] Coding staff will review the response and follow-up if needed. Please note: Queries are made part of the Legal Health Record. If you have any questions, please contact the author of this message via ITS. Dr. Luther Greer: Severe Sepsis is documented in the 03/31 Nephrology Consult and subsequent Nephrology Progress Note. Sepsis is not documented by the Attending Physician or elsewhere in the record. Additional clarification regarding the diagnosis of Sepsis and Severe Sepsis is requested. History/Risk Factors per the 03/29 H/P: Asthma, COPD, CVA, DM, DVT, GERD, Kidney Stones, DJD, MRSA. Former smoker. Clinical Indicators: Presented to the ED on 03/29 with SOB and cough x2 weeks. Admitted with Acute Exacerbation of COPD, COVID 19, Right Pleural Effusion 03/29 VS: T 97.9, P 110, R 20 (sob), BP 88/63, PO 92 RA - 97 3Lnc, BMI 26.9 03/29 LAB: WBC 12.9, Neut 7.3, D Dimer 0.63, K 3.1, CO2 11, BUN 79, Creatinine 2.99, Glucose 243, Alk Phos 173 03/29 Influenza A/B: Negative 03/29 RSV: Negative 03/29 COVID: Positive 03/31 VS: T 97.3, P 80, R 16, BP 118/76, PO 92 3Lnc 03/31 LAB: WBC 14.50, Hgb 10.4, K 3.1, Cl 115<O2 14.4, BUN 78.7, Cr 2.8, Calcium 8.1, Lactic Acid 0.8, Alk Phos 135, Albumin 3.5 03/31 UA: Cloudy, 1+ Protein, Large Blood, Large Esterase, RBC 54, WBC >182 03/29 & 03/30 Blood Cultures: 1/3 positive for Staphylococcus epidermidis, possible contaminant per the Infectious Disease documentation: 04/09 Consult and subsequent Progress Notes. 04/02 Blood Cultures x3: Negative 03/31 Blood Gas (ABG: pH 7.33, pCO2 29, pO2 140, HCO3 140, HCO3 16, Total CO2 16 Treatment 03/29: Telemetry, Insulin sl sc, Blood culture, Sputum Culture, O2 3L- 6Lnc, INH Ventolin, IV Keppra, IV Dilaudid, po Vit D3, Lovenox sq, IV Solumedrol, po Orazinc, INH Ventolin, INH Symbicort, po Vit C. 03/30: Curran Cath placed, po Zithromax, IV Na Bicarb, IV Na Cl 999 mls/hr q1Hr, IV Kcl, IV Decadron, IV Vancomycin 03/31: PICC line attempted, procedure canceled; IV Cefepime, IV Dextrose/Water w/Na bicarb, IV Kcl, IV Vancomycin, O2 2-3Lnc - Room air. 04/01: Urine Culture In your professional opinion, please clarify if these findings signify one of the following conditions: [ ] Sepsis POA, please specify cause if known: [ ] With Severe Sepsis with organ failure [ ] Sepsis, Not POA [ ] Severe Sepsis with organ failure [ ] Severe Sepsis ruled out [ ] Other, please specify [ ] Unable to determine covid 19 infection (Template Last Reviewed: May 2020) RIA
== END 2021-04-04 12:54 | DRG 177 ==
LOC: EC 12:40 → 4SSUR 17:54
PROVIDERS: ADMIT Hospitalist; ATTEND Hospitalist
PROC: 05H933Z Insertion of Infusion Device into Right Brachial Vein, Percutaneous Approach (ICD-10-PCS; principal; 2021-04-03 14:00)
DX: U07.1 COVID-19 (principal); G93.41 Metabolic encephalopathy; J12.82 Pneumonia due to coronavirus disease 2019; J96.01 Acute respiratory failure with hypoxia; N17.0 Acute kidney failure with tubular necrosis; E87.0 Hyperosmolality and hypernatremia; E87.4 Mixed disorder of acid-base balance; J44.0 Chronic obstructive pulmonary disease with (acute) lower respiratory infection; J44.1 Chronic obstructive pulmonary disease with (acute) exacerbation; K50.90 Crohn's disease, unspecified, without complications; K56.7 Ileus, unspecified; N39.0 Urinary tract infection, site not specified; Z16.24 Resistance to multiple antibiotics; G93.1 Anoxic brain damage, not elsewhere classified; E11.22 Type 2 diabetes mellitus with diabetic chronic kidney disease; E11.65 Type 2 diabetes mellitus with hyperglycemia; E86.0 Dehydration; E87.6 Hypokalemia; F01.50 Vascular dementia, unspecified severity, without behavioral disturbance, psychotic disturbance, mood disturbance, and anxiety; F02.80 Dementia in other diseases classified elsewhere, unspecified severity, without behavioral disturbance, psychotic disturbance, mood disturbance, and anxiety; J01.00 Acute maxillary sinusitis, unspecified; K21.9 Gastro-esophageal reflux disease without esophagitis; M19.90 Unspecified osteoarthritis, unspecified site; N18.9 Chronic kidney disease, unspecified; N20.0 Calculus of kidney; N40.0 Benign prostatic hyperplasia without lower urinary tract symptoms; Z98.1 Arthrodesis status; Z90.79 Acquired absence of other genital organ(s); Z90.49 Acquired absence of other specified parts of digestive tract; Z87.891 Personal history of nicotine dependence; Z87.442 Personal history of urinary calculi; Z86.73 Personal history of transient ischemic attack (TIA), and cerebral infarction without residual deficits; Z86.718 Personal history of other venous thrombosis and embolism; Z86.14 Personal history of Methicillin resistant Staphylococcus aureus infection; Z79.899 Other long term (current) drug therapy; Z79.51 Long term (current) use of inhaled steroids; Z79.4 Long term (current) use of insulin; R56.9 Unspecified convulsions; M54.9 Dorsalgia, unspecified
CPT/HCPCS: 36410; 36415; 36573; 36600; 70450; 71045; 71046; 74176; 76770; 76937; 80048; 80053; 81001; 82140; 82805; 83605; 83615; 83735; 83880; 84132; 84145; 84443; 84484; 85025; 85379; 85610; 85730; 86140; 87040; 87077; 87086; 87186; 87636; 93005; 94640; 94760; 95816; 96374; 96375; 99285

== ENCOUNTER 2021-07-10 23:10 | Emergency (ER) | payer MEDICARE ==
[2021-07-11] MEDS ORDERED: MORPHINE SULFATE 4 MG/ML SYRINGE IV STA (01:17)
[2021-07-11] MEDS ORDERED: SODIUM CHLORIDE 0.9% 500 ML 500 ML IV STA (01:17)
[2021-07-11] MEDS ORDERED: METOCLOPRAMIDE 5 MG/ML 2 ML VIAL IVP STA (01:17)
--- NOTE | 2021-07-11 01:35 | ED ---
Abdominal Pain HPI - General Chief Complaint: Abdominal Pain Stated Complaint: Abd Pain Time Seen by Provider: 07/11/21 00:52 Source: patient Mode of arrival: ambulatory - History of Present Illness Initial Comments: Patient is 65-year-old man presenting to have evaluation of epigastric and periumbilical pain. Patient is not sure if this is same as his previous Crohn's flares or if perhaps he may be developing an ulcer. He is also has some nausea. No hematemesis. No bright red blood or dark tarry stools. MD Complaint: abdominal pain -: days(s) Location: periumbilical Radiation: none Migration to: no migration Severity scale (1-10): 0 Quality: cramping Consistency: intermittent Improves With: nothing Worsens With: nothing Associated Symptoms: denies other symptoms - Related Data Home Medications Medication Instructions Recorded Confirmed levETIRAcetam [Keppra] 500 mg PO DAILY 02/22/17 03/29/21 levETIRAcetam [Keppra] 1,000 mg PO HS 03/10/17 03/29/21 Nitroglycerin Sl Tabs [Nitrostat] 0.4 mg SL Q5M PRN 04/26/17 03/29/21 Albuterol Sulfate [Albuterol 2 puff INHALATION RT-Q4H PRN 01/21/20 03/29/21 Sulfate Hfa] Insulin Lispro [humaLOG Kwikpen] See Protocol SQ AC-TID 01/21/20 03/29/21 Budesonide/Formoterol Fumarate 2 puff INHALATION RT-BID 05/08/20 03/29/21 [Symbicort 160-4.5 Mcg Inhaler] Pantoprazole Sodium [Protonix] 40 mg PO DAILY 05/08/20 03/29/21 Atorvastatin [Lipitor] 20 mg PO DAILY 12/01/20 03/29/21 Nortriptyline HCl [Pamelor] 10 mg PO BID 12/01/20 03/29/21 Insulin Lispro [humaLOG Kwikpen] 5 unit SQ AC-TID 03/29/21 03/29/21 Previous Rx's Medication Instructions Recorded Insulin Glargine,Hum.rec.anlog 25 unit SQ HS #0 12/09/20 [Lantus Solostar Pen] Ascorbic Acid [Vitamin C] 500 mg PO BID #30 tab 04/03/21 Baclofen [Lioresal] 5 mg PO BID PRN #20 tab 04/03/21 Cefuroxime Axetil [Ceftin] 500 mg PO BID 4 Days #8 tab 04/03/21 Cholecalciferol [Vitamin D3 (25 25 mcg PO DAILY #30 tablet 04/03/21 Mcg = 1000 Iu)] Zinc Sulfate [Orazinc] 220 mg PO DAILY #30 cap 04/03/21 Famotidine [Pepcid] 20 mg PO BID #14 tablet 07/11/21 Allergies Allergy/AdvReac Type Severity Reaction Status Date / Time aspirin Allergy Swelling Verified 07/10/21 23:59 ondansetron HCl [From Zofran] Allergy Unknown Verified 07/10/21 23:59 penicillin G Allergy Rash/Hives Verified 07/10/21 23:59 venom-wasp [Wasp Venom] Allergy Anaphylaxis Verified 07/10/21 23:59 nalbuphine HCl [From Nubain] AdvReac Vomiting Verified 07/10/21 23:59 Review of Systems ROS Statement: Those systems with pertinent positive or pertinent negative responses have been documented in the HPI. ROS Other: All systems not noted in ROS Statement are negative. Constitutional: Denies: fever, chills Respiratory: Denies: cough, dyspnea Cardiovascular: Denies: chest pain, palpitations Gastrointestinal: Reports: abdominal pain, nausea. Denies: vomiting, diarrhea, constipation, melena, hematochezia Genitourinary: Denies: dysuria, hematuria, testicular pain Musculoskeletal: Denies: back pain Skin: Denies: rash Neurological: Denies: headache Past Medical History Past Medical History: Asthma, CVA/TIA, Diabetes Mellitus, Deep Vein Thrombosis (DVT), GERD/Reflux, Osteoarthritis (OA), Skin Disorder Additional Past Medical History / Comment(s): HX OF KIDNEY STONES, CROHNS DISEASE, HX OF BLOOD CLOT RT ARM AND BEHIND RT KNEE, TIA/seizure/brain bleed 08/2016, see Dr Wright H&P, "spots of dry skin", hx anemia, september 2018 stone removed L kidney History of Any Multi-Drug Resistant Organisms: MRSA Date of last positivie culture/infection: 2006 MDRO Source:: nose Past Surgical History: Appendectomy, Back Surgery, Bowel Resection, Cholecyst ectomy, Heart Catheterization, Prostate Surgery Additional Past Surgical History / Comment(s): BOWEL RESECTION X 5, SPINAL SURGERIES X3, LEFT LOBECTOMY. lithotripsy, TURP, neck fusion. Past Anesthesia/Blood Transfusion Reactions: No Reported Reaction Past Psychological History: No Psychological Hx Reported Smoking Status: Former smoker Past Alcohol Use History: None Reported Past Drug Use History: None Reported - Past Family History Mother Family Medical History: Deep Vein Thrombosis (DVT) General Exam General appearance: alert, in no apparent distress Head exam: Present: atraumatic, normocephalic Eye exam: Present: normal appearance. Absent: scleral icterus, conjunctival injection Neck exam: Present: normal inspection Respiratory exam: Present: normal lung sounds bilaterally. Absent: respiratory distress, wheezes, rales, rhonchi, stridor Cardiovascular Exam: Present: regular rate, normal rhythm, normal heart sounds. Absent: systolic murmur, diastolic murmur, rubs, gallop GI/Abdominal exam: Present: soft. Absent: distended, tenderness, guarding, rebound, rigid, mass, pulsatile mass Extremities exam: Present: normal inspection, normal capillary refill. Absent: pedal edema, calf tenderness Back exam: Present: normal inspection. Absent: CVA tenderness (R), CVA tenderness (L) Neurological exam: Present: alert Skin exam: Present: warm, dry, intact, normal color. Absent: rash Course Vital Signs 07/10/21 07/11/21 07/11/21 23:54 01:40 04:34 Temperature 98.1 F Pulse Rate 81 74 Respiratory 19 18 16 Rate Blood Pressure 146/75 160/94 139/78 O2 Sat by Pulse 100 99 Oximetry 07/11/21 06:39 Temperature 97.8 F Pulse Rate 79 Respiratory 18 Rate Blood Pressure 139/78 O2 Sat by Pulse 99 Oximetry Medical Decision Making - Medical Decision Making Patient is feeling better following medications. He would like to go home. 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 We discussed appropriate further care and return parameters. - Lab Data Result diagrams: 07/11/21 00:53 07/11/21 00:53 Lab Results 07/11/21 07/11/21 Range/Units 00:53 00:53 WBC 9.6 (3.8-10.6) k/uL RBC 3.30 L (4.30-5.90) m/uL Hgb 11.7 L (13.0-17.5) gm/dL Hct 36.4 L (39.0-53.0) % MCV 110.2 H (80.0-100.0) fL MCH 35.3 H (25.0-35.0) pg MCHC 32.0 (31.0-37.0) g/dL RDW 15.6 H (11.5-15.5) % Plt Count 228 (150-450) k/uL MPV 7.3 Neutrophils % 65 % Lymphocytes % 26 % Monocytes % 6 % Eosinophils % 2 % Basophils % 0 % Neutrophils # 6.2 (1.3-7.7) k/uL Lymphocytes # 2.5 (1.0-4.8) k/uL Monocytes # 0.5 (0-1.0) k/uL Eosinophils # 0.2 (0-0.7) k/uL Basophils # 0.0 (0-0.2) k/uL Manual Slide Review Performed Poikilocytosis (manual Present Anisocytosis (manual) Present Macrocytosis Marked A Sodium 138 (137-145) mmol/L Potassium 4.2 (3.5-5.1) mmol/L Chloride 104 (98-107) mmol/L Carbon Dioxide 25 (22-30) mmol/L Anion Gap 9 mmol/L BUN 16 (9-20) mg/dL Creatinine 0.67 (0.66-1.25) mg/dL Est GFR (CKD-EPI)AfAm >90 (>60 ml/min/1.73 sqM) Est GFR (CKD-EPI)NonAf >90 (>60 ml/min/1.73 sqM) Glucose 97 (74-99) mg/dL Calcium 9.1 (8.4-10.2) mg/dL Total Bilirubin 1.0 (0.2-1.3) mg/dL AST 32 (17-59) U/L ALT 16 (4-49) U/L Alkaline Phosphatase 107 (38-126) U/L C-Reactive Protein <0.5 (<1.0) mg/dL Total Protein 8.4 H (6.3-8.2) g/dL Albumin 4.4 (3.5-5.0) g/dL Amylase 69 (30-110) U/L Lipase 108 (23-300) U/L Disposition Clinical Impression: Abdominal pain Disposition: HOME SELF-CARE Condition: Good Instructions (If sedation given, give patient instructions): Abdominal Pain (ED) Prescriptions: Famotidine [Pepcid] 20 mg PO BID #14 tablet Is patient prescribed a controlled substance at d/c from ED?: No Referrals: Adela Lorenz MD [Primary Care Provider] - 1-2 days Johana Wade MD [STAFF PHYSICIAN] - 1-2 days
--- NOTE | 2021-07-11 01:48 | XR ---
EXAMINATION TYPE: XR KUB DATE OF EXAM: 07/11/2021 COMPARISON: 12/07/2020 HISTORY: Abdominal pain TECHNIQUE: 2 views upright FINDINGS: There is no sign of intestinal obstruction or pneumoperitoneum. There rods and screws fusin g the lower lumbar spine. There are clips from cholecystectomy. There is 1 cm calcification over the lower pole right kidney. There is a 3 mm calcification over the left kidney. IMPRESSION: Possible right renal calculus without change. Non acute bowel gas pattern. Possible left renal calculus.
[2021-07-11 01:58] LABS: ALT 16 U/L (4-49); African American GFR (CKD) >90 (>60 ml/min/1.73 sqM); Albumin 4.4 g/dL (3.5-5.0); Amylase 69 U/L (30-110); Anion Gap 9 mmol/L; Blood Urea Nitrogen 16 mg/dL (9-20); Calcium 9.1 mg/dL (8.4-10.2); Carbon Dioxide 25 mmol/L (22-30); Chloride 104 mmol/L (98-107); Glucose 97 mg/dL (74-99); Lipase 108 U/L (23-300); Non-African American GFR(CKD) >90 (>60 ml/min/1.73 sqM); Sodium 138 mmol/L (137-145); Total Protein 8.4 g/dL (6.3-8.2)
[2021-07-11 02:00] LABS: Basophils % (A) 0 %; Eosinophils # (A) 0.2 k/uL (0-0.7); Eosinophils % (A) 2 %; HCT 36.4 % (39.0-53.0); HGB 11.7 gm/dL (13.0-17.5); Lymphocytes # (A) 2.5 k/uL (1.0-4.8); Lymphocytes % (A) 26 %; MCH 35.3 pg (25.0-35.0); MCV 110.2 fL (80.0-100.0); Macrocytosis Marked; Mean Platelet Volume 7.3; Monocytes # (A) 0.5 k/uL (0-1.0); Monocytes % (A) 6 %; Neutrophils # (A) 6.2 k/uL (1.3-7.7); Neutrophils % (A) 65 %; Platelet Count 228 k/uL (150-450); RDW 15.6 % (11.5-15.5); WBC 9.6 k/uL (3.8-10.6)
[2021-07-11 02:31] LABS: AST 32 U/L (17-59); Alkaline Phosphatase 107 U/L (38-126); C Reactive Protein <0.5 mg/dL (<1.0); Potassium 4.2 mmol/L (3.5-5.1)
[2021-07-11 02:55] LABS: Anisocytosis (M) Present
[2021-07-11 02:57] LABS: Poikilocytosis (M) Present
[2021-07-11] MEDS ORDERED: HYDROmorphone 0.5 MG/0.5 ML SYRINGE IVP STA ×2 (04:09→04:53)
[2021-07-11 04:34] VITALS: BP 139/78
[2021-07-11] MEDS ORDERED: FAMOTIDINE 20 MG/2 ML VIAL IV STA (04:53)
[2021-07-11 06:42] VITALS: PULSE 79; RESP 18; TEMP 97.8
== END 2021-07-11 06:42 | disposition home or self-care (01) ==
LOC: EC 23:10
DX: R10.33 Periumbilical pain (principal); R10.13 Epigastric pain; E11.9 Type 2 diabetes mellitus without complications; J45.909 Unspecified asthma, uncomplicated; K21.9 Gastro-esophageal reflux disease without esophagitis; M19.90 Unspecified osteoarthritis, unspecified site; Z87.891 Personal history of nicotine dependence; Z79.4 Long term (current) use of insulin; Z79.51 Long term (current) use of inhaled steroids; Z79.899 Other long term (current) drug therapy
CPT/HCPCS: 36415; 80053; 82150; 83690; 85025; 86140; 74018; 99284; 96374; 96375 ×3; J2270; J2765; J1170

== ENCOUNTER 2021-07-22 06:14 | Day surgery (SDC) | payer MEDICARE ==
[2021-07-17 15:47] VITALS: BMI 23.3
[2021-07-22 06:38] VITALS: TEMP 97
[2021-07-22] MEDS ORDERED: LACTATED RINGERS 1,000 ML IV ONE (06:38)
[2021-07-22 06:51] LABS: Glucose,Whole Blood 110 mg/dL (75-99)
[2021-07-22] MEDS ORDERED: PROPOFOL 10 MG/ML 20 ML VIAL IV ONE (07:31)
[2021-07-22] MEDS ORDERED: LIDOCAINE 1% INJ 10MG/ML (20 ML MDV) ONE (07:31)
[2021-07-22] MEDS ORDERED: GLYCOPYRROLATE 0.2 MG/ML 2 ML VIAL ONE (07:31)
[2021-07-22] MEDS ORDERED: PHENYLEPHRINE-0.9% NACL SYG 1,000 MCG/10 ML SYRINGE ONE (07:31)
[2021-07-22 08:26] VITALS: RESP 20
--- NOTE | 2021-07-22 08:28 | P.PCN ---
Date of Procedure: 07/22/21 Procedure(s) Performed: Brief history: Patient is a pleasant 65-year-old white male scheduled for an elective upper endoscopy as well as colonoscopy as a part of evaluation of abdominal pain, nausea vomiting and long-standing history of Crohn's disease that was diagnosed in 1982. He had history of terminal ileal resection several years ago. Patient has been treated with Remicade with AcipHex failed Humira and anterior the past and dysphagia treatments. His been on Sierra since June 2020. He had recent hospitalization with exacerbation of Crohn's ileitis requiring IVC her therapy on 2 different occasions in the last 3 months. Because of the persistent symptoms he scheduled for an upper endoscopy as well as colonoscopy to evaluate further. Procedure performed: Esophagogastroduodenoscopy with biopsy Colonoscopy with biopsy Preoperative diagnosis: Long-standing history of Crohn's ileitis Nausea vomiting and diarrhea Anesthesia: MAC Procedure: After informed consent was obtained from the patient was brought into the endoscopy unit and IV sedation was administered by anesthesia under continuous monitoring. Initially upper endoscopy was done. The Olympus GF 160 video endoscope was inserted inserted into the mouth and esophagus intubated without any difficulty and was gradually advanced into the stomach and duodenum and carefully examined. The bulb and second part of the duodenum appeared normal. The scope was then withdrawn into the stomach adequately insufflated with air a nd upon careful examination the antrum and body, cardia and fundus appeared normal. The scope was then withdrawn into the esophagus. The GE junction was located at 40 cm to the incisors. It appeared regular with no erythema erosions or ulcerations. Rest of the esophagus appeared normal. Patient tolerated the procedure well. At this time the patient continued to remain sedation. Initial digital rectal examination was normal. Olympus CF 160 video colonoscope was then inserted into the rectum and gradually advanced to the right colon with moderate to severe difficulty because of extent before prep. The liquid anastomosis was visualized in the right colon which appeared narrowed with multiple superficial erosions and ulcerations and biopsies were done from this area. The scope could not be advanced to the Monster anastomosis. Mucosa of the, transverse colon, descending colon, sigmoid colon and rectum appeared normal. It was extremely poor and several areas of the colon. Retroflexion was performed in the rectum and no lesions were noted. Patient tolerated the procedure well. Impression: 1. Upper endoscopy revealed mild antral gastritis but no evidence of esophagitis or peptic ulcer disease 2. Colonoscopy revealed a tight stricture of the liquid anastomosis located in the right colon with multiple superficial erosions and ulcerations status post biopsy. The scope could not be advanced into the distal ileum. Colon appeared normal except for poor prep. Recommendations: Findings of this examination were discussed with the patient as well as his family. He was advised to follow with the biopsy results. He will continue with current medications and be seen in office in 2-3 weeks.
[2021-07-22 09:07] VITALS: BP 113/72; PULSE 70
== END 2021-07-22 09:05 | disposition home or self-care (01) ==
LOC: ORWHC2ENDO 06:14
PROVIDERS: ATTEND Internal Medicine Gastroenterology
DX: K29.70 Gastritis, unspecified, without bleeding (principal); K22.10 Ulcer of esophagus without bleeding; I10 Essential (primary) hypertension; E78.5 Hyperlipidemia, unspecified; J45.909 Unspecified asthma, uncomplicated; J44.9 Chronic obstructive pulmonary disease, unspecified; Z86.73 Personal history of transient ischemic attack (TIA), and cerebral infarction without residual deficits; Z79.4 Long term (current) use of insulin; Z79.899 Other long term (current) drug therapy; Z86.69 Personal history of other diseases of the nervous system and sense organs; Z88.0 Allergy status to penicillin; Z88.8 Allergy status to other drugs, medicaments and biological substances
CPT/HCPCS: 45380; 43239; 88305; 88342; J2001; J2370; J2704

== ENCOUNTER 2021-10-08 14:58 | Emergency (ER) | payer MEDICARE ==
[2021-10-08 15:13] VITALS: RESP 16; TEMP 98
[2021-10-08] MEDS ORDERED: HYDROmorphone 0.5 MG/0.5 ML SYRINGE IVP STA (16:27)
[2021-10-08] MEDS ORDERED: SODIUM CHLORIDE 0.9% 2,000 ML IV STA (16:27)
[2021-10-08] MEDS ORDERED: PROCHLORPERAZINE INJ 10 MG/2 ML VIAL IVP STA (16:28)
[2021-10-08 17:07] LABS: Anisocytosis Slight; Basophils # (A) 0.2 k/uL (0-0.2); Basophils % (A) 1 %; Eosinophils # (A) 0.2 k/uL (0-0.7); Eosinophils % (A) 1 %; HCT 47.1 % (39.0-53.0); HGB 15.2 gm/dL (13.0-17.5); Lymphocytes # (A) 3.4 k/uL (1.0-4.8); Lymphocytes % (A) 29 %; MCH 32.7 pg (25.0-35.0); MCHC 32.2 g/dL (31.0-37.0); MCV 101.6 fL (80.0-100.0); Macrocytosis Moderate; Mean Platelet Volume 7.2; Monocytes # (A) 0.6 k/uL (0-1.0); Monocytes % (A) 6 %; Neutrophils # (A) 7.3 k/uL (1.3-7.7); Neutrophils % (A) 62 %; Platelet Count 235 k/uL (150-450); RBC 4.64 m/uL (4.30-5.90); RDW 16.9 % (11.5-15.5); WBC 11.7 k/uL (3.8-10.6)
[2021-10-08 17:18] LABS: INR 1.1 (<1.2); Partial Thromboplastin Time 24.1 sec (22.0-30.0); Prothrombin Time 11.6 sec (9.0-12.0)
[2021-10-08 17:21] LABS: Albumin 5.1 g/dL (3.5-5.0); Total Bilirubin 2.3 mg/dL (0.2-1.3); Total Protein 9.6 g/dL (6.3-8.2)
[2021-10-08 17:22] LABS: Potassium 4.2 mmol/L (3.5-5.1)
--- NOTE | 2021-10-08 18:08 | ED ---
Abdominal Pain HPI - General Chief Complaint: Abdominal Pain Stated Complaint: Crohn's Flare up Time Seen by Provider: 10/08/21 16:17 Source: patient Mode of arrival: wheelchair Limitations: no limitations - History of Present Illness Initial Comments: Patient is a 66-year-old male with a past medical history of Crohn's disease who presents to the emergency department with a chief complaint of abdominal pain, nausea, vomiting, and diarrhea. Patient states symptoms started last night, feeling like a Crohn's flare up. States the abdominal pain is right-sided, constant and severe aching in nature. Patient not tolerating oral intake. Denies fever and chills. States he had a recent colonoscopy with Dr. Wade which showed an ileal stricture. Patient states he has history multiple bowel resections as well as appendectomy and cholecystectomy. States his last Crohn's flare up was last month and at this time Dr. Emerson told him next time he has a bowel resection he will likely need a ostomy bag. - Related Data Home Medications Medication Instructions Recorded Confirmed levETIRAcetam [Keppra] 500 mg PO QAM 02/22/17 07/17/21 levETIRAcetam [Keppra] 1,000 mg PO HS 03/10/17 07/17/21 Nitroglycerin Sl Tabs [Nitrostat] 0.4 mg SL Q5M PRN 04/26/17 07/17/21 Albuterol Sulfate [Albuterol 2 puff INHALATION RT-Q4H PRN 01/21/20 07/17/21 Sulfate Hfa] Insulin Lispro [humaLOG Kwikpen] See Protocol SQ AC-TID 01/21/20 07/17/21 Budesonide/Formoterol Fumarate 2 puff INHALATION RT-BID 05/08/20 07/17/21 [Symbicort 160-4.5 Mcg Inhaler] Atorvastatin [Lipitor] 20 mg PO DAILY 12/01/20 07/17/21 Certolizumab Pegol [Cimzia] 400 mg SQ Q30D 07/17/21 07/17/21 Insulin Glargine,Hum.rec.anlog 26 unit SQ HS 07/17/21 07/17/21 [Lantus Solostar Pen] Tiotropium [place] [Spiriva] 1 cap INHALATION QAM 07/17/21 07/17/21 Allergies Allergy/AdvReac Type Severity Reaction Status Date / Time aspirin Allergy Swelling Verified 10/08/21 15:13 ondansetron HCl [From Zofran] Allergy severe Verified 10/08/21 15:13 vomiting penicillin G Allergy Rash/Hives Verified 10/08/21 15:13 venom-wasp [Wasp Venom] Allergy Anaphylaxis Verified 10/08/21 15:13 nalbuphine HCl [From Nubain] AdvReac Vomiting Verified 10/08/21 15:13 Review of Systems ROS Statement: Those systems with pertinent positive or pertinent negative responses have been documented in the HPI. ROS Other: All systems not noted in ROS Statement are negative. Past Medical History Past Medical History: Asthma, CVA/TIA, Diabetes Mellitus, Deep Vein Thrombosis (DVT), GERD/Reflux, Osteoarthritis (OA), Skin Disorder Additional Past Medical History / Comment(s): HX OF KIDNEY STONES, CROHNS DISEASE, HX OF BLOOD CLOT RT ARM AND BEHIND RT KNEE, TIA/seizure/brain bleed 08/2016, see Dr Wright H&P, "spots of dry skin", hx anemia, september 2018 stone removed L kidney History of Any Multi-Drug Resistant Organisms: MRSA Date of last positivie culture/infection: 2006 MDRO Source:: nose Past Surgical History: Appendectomy, Back Surgery, Bowel Resection, Cholecystectomy, Heart Catheterization, Prostate Surgery Additional Past Surgical History / Comment(s): BOWEL RESECTION X 5, SPINAL SURGERIES X3, LEFT LOBECTOMY. lithotripsy, TURP, neck fusion. Past Anesthesia/Blood Transfusion Reactions: No Reported Reaction Past Psychological History: No Psychological Hx Reported Smoking Status: Former smoker Past Alcohol Use History: None Reported Past Drug Use History: None Reported - Past Family History Mother Family Medical History: Deep Vein Thrombosis (DVT) General Exam Limitations: no limitations General appearance: alert, in no apparent distress Head exam: Present: atraumatic, normocephalic, normal inspection Eye exam: Present: normal appearance, PERRL, EOMI. Absent: scleral icterus, conjunctival injection, periorbital swelling Respiratory exam: Present: normal lung sounds bilaterally. Absent: respiratory distress, wheezes, rales, rhonchi, stridor Cardiovascular Exam: Present: regular rate, normal rhythm, normal heart sounds. Absent: systolic murmur, diastolic murmur, rubs, gallop, clicks GI/Abdominal exam: Present: soft, tenderness (RUQ, periumblical ), normal bowel sounds. Absent: distended, guarding, rebound, rigid Neurological exam: Present: alert, oriented X3, CN II-XII intact Psychiatric exam: Present: normal affect, normal mood Skin exam: Present: warm, dry, intact, normal color. Absent: rash Course Vital Signs 10/08/21 15:11 Temperature 98 F Pulse Rate 99 Respiratory 16 Rate Blood Pressure 90/64 O2 Sat by Pulse 99 Oximetry Medical Decision Making - Medical Decision Making This is a 66-year-old male who presents for evaluation of possible Crohn's fl are. Thorough history and examination were performed. Patient is hypotensive at 90/64. Afebrile. Well-appearing however he does verbalize that he is in severe pain. The abdomen is soft. There is tenderness in the right upper quadrant and periumbilical region. Patient has history of cholecystectomy. I will obtain laboratory studies as well as CT of the abdomen and pelvis with contrast. Pain and nausea controlled with Dilaudid and Zofran. Laboratory studies significant for leukocytosis at 11.7. Alk phos is elevated at 160. AST and ALT are within normal limits. Bilirubin is elevated at 2.3. CT shows a small bowel obstruction which appears to transition at the anterior abdominal wall p eriumbilical hernia. There is dilation of the common bile duct and pancreatic duct. Results discussed with patient. Unfortunately we do not have GI services. Patient states he had prior bowel resection at [facility]. He would like to be transferred there. NPO until further notice. Case discussed with Dr. Glass at [facility]. Patient will be transferred there for further evaluation and management. He is agreeable to transfer. He was transferred in stable condition. Dr. Parra is my attending. - Lab Data Result diagrams: 10/08/21 16:36 10/08/21 16:36 Lab Results 10/08/21 10/08/21 10/08/21 Range/Units 16:36 16:36 16:36 WBC 11.7 H (3.8-10.6) k/uL RBC 4.64 (4.30-5.90) m/uL Hgb 15.2 (13.0-17.5) gm/dL Hct 47.1 (39.0-53.0) % MCV 101.6 H (80.0-100.0) fL MCH 32.7 (25.0-35.0) pg MCHC 32.2 (31.0-37.0) g/dL RDW 16.9 H (11.5-15.5) % Plt Count 235 (150-450) k/uL MPV 7.2 Neutrophils % 62 % Lymphocytes % 29 % Monocytes % 6 % Eosinophils % 1 % Basophils % 1 % Neutrophils # 7.3 (1.3-7.7) k/uL Lymphocytes # 3.4 (1.0-4.8) k/uL Monocytes # 0.6 (0-1.0) k/uL Eosinophils # 0.2 (0-0.7) k/uL Basophils # 0.2 (0-0.2) k/uL Anisocytosis Slight Macrocytosis Moderate PT 11.6 (9.0-12.0) sec INR 1.1 (<1.2) APTT 24.1 (22.0-30.0) sec Sodium (137-145) mmol/L Potassium (3.5-5.1) mmol/L Chloride (98-107) mmol/L Carbon Dioxide (22-30) mmol/L Anion Gap mmol/L BUN (9-20) mg/dL Creatinine (0.66-1.25) mg/dL Est GFR (CKD-EPI)AfAm (>60 ml/min/1.73 sqM) Est GFR (CKD-EPI)NonAf (>60 ml/min/1.73 sqM) Glucose (74-99) mg/dL Plasma Lactic Acid Jose Miguel (0.7-2.0) mmol/L Calcium (8.4-10.2) mg/dL Total Bilirubin (0.2-1.3) mg/dL AST (17-59) U/L ALT (4-49) U/L Alkaline Phosphatase (38-126) U/L Total Protein (6.3-8.2) g/dL Albumin (3.5-5.0) g/dL Lipase (23-300) U/L Urine Color Yellow Urine Appearance Cloudy (Clear) Urine pH 6.0 (5.0-8.0) Ur Specific [place] 1.035 (1.001-1.035) Urine Protein 1+ H (Negative) Urine Glucose (UA) Negative (Negative) Urine Ketones Trace H (Negative) Urine Blood Negative (Negative) Urine Nitrite Negative (Negative) Urine Bilirubin 1+ H (Negative) Urine Urobilinogen 3.0 (<2.0) mg/dL Ur Leukocyte Esterase Negative (Negative) Urine RBC 10 H (0-5) /hpf Urine WBC 2 (0-5) /hpf Ur Squamous Epith Cells <1 (0-4) /hpf Calcium Oxalate Crystal Few H (None) /hpf Uric Acid Crystals Rare H (None) /hpf Hyaline Casts 4 H (0-2) /lpf Urine Mucus Rare H (None) /hpf 10/08/21 10/08/21 Range/Units 16:36 17:22 WBC (3.8-10.6) k/uL RBC (4.30-5.90) m/uL Hgb (13.0-17.5) gm/dL Hct (39.0-53.0) % MCV (80.0-100.0) fL MCH (25.0-35.0) pg MCHC (31.0-37.0) g/dL RDW (11.5-15.5) % Plt Count (150-450) k/uL MPV Neutrophils % % Lymphocytes % % Monocytes % % Eosinophils % % Basophils % % Neutrophils # (1.3-7.7) k/uL Lymphocytes # (1.0-4.8) k/uL Monocytes # (0-1.0) k/uL Eosinophils # (0-0.7) k/uL Basophils # (0-0.2) k/uL Anisocytosis Macrocytosis PT (9.0-12.0) sec INR (<1.2) APTT (22.0-30.0) sec Sodium 140 (137-145) mmol/L Potassium 4.2 (3.5-5.1) mmol/L Chloride 97 L (98-107) mmol/L Carbon Dioxide 27 (22-30) mmol/L Anion Gap 16 mmol/L BUN 25 H (9-20) mg/dL Creatinine 1.01 (0.66-1.25) mg/dL Est GFR (CKD-EPI)AfAm 89 (>60 ml/min/1.73 sqM) Est GFR (CKD-EPI)NonAf 77 (>60 ml/min/1.73 sqM) Glucose 120 H (74-99) mg/dL Plasma Lactic Acid Jose Miguel 1.9 (0.7-2.0) mmol/L Calcium 10.0 (8.4-10.2) mg/dL Total Bilirubin 2.3 H (0.2-1.3) mg/dL AST 36 (17-59) U/L ALT 25 (4-49) U/L Alkaline Phosphatase 160 H (38-126) U/L Total Protein 9.6 H (6.3-8.2) g/dL Albumin 5.1 H (3.5-5.0) g/dL Lipase 146 (23-300) U/L Urine Color Urine Appearance (Clear) Urine pH (5.0-8.0) Ur Specific [place] (1.001-1.035) Urine Protein (Negative) Urine Glucose (UA) (Negative) Urine Ketones (Negative) Urine Blood (Negative) Urine Nitrite (Negative) Urine Bilirubin (Negative) Urine Urobilinogen (<2.0) mg/dL Ur Leukocyte Esterase (Negative) Urine RBC (0-5) /hpf Urine WBC (0-5) /hpf Ur Squamous Epith Cells (0-4) /hpf Calcium Oxalate Crystal (None) /hpf Uric Acid Crystals (None) /hpf Hyaline Casts (0-2) /lpf Urine Mucus (None) /hpf Disposition Clinical Impression: Crohn's disease, Small bowel obstruction Disposition: OTHER INSTITUTION NOT DEFINED Condition: Fair Referrals: Kahlil Augustine MD [Primary Care Provider] - 1-2 days - Out of Hospital Transfer - Req. Specs Out of Hospital Transfer - Requested Specifics: Other Emergency Center ([facility])
--- NOTE | 2021-10-08 18:12 | CT ---
EXAMINATION TYPE: CT abdomen pelvis w con DATE OF EXAM: 10/08/2021 COMPARISON: 03/30/2021 INDICATION: abdominal pain, hx of Crohns DLP: 1054.8 mGycm, Automated exposure control for dose reduction was used. CONTRAST: 100 mL of Isovue 300. Study performed without Oral Contrast TECHNIQUE: Axial images were obtained from above the diaphragm to the pubic rami in the axial plane a t 5 mm thick sections. Reconstructed images are reviewed on the computer in the coronal plane. FINDINGS: Limited CT sections are obtained the lung bases. The lung bases are clear. CT ABDOMEN: Liver: Normal. No biliary dilatation is evident. Spleen: Normal Pancreas: Common bile duct within head of pancreas is very prominent. There is a punctate hyperdensit y present within the dependent portion. Tiny calcification may be present. Series 201 image 33. Pancr eatic duct is prominent within the head and body of the pancreas. At the proximal body this is dilate d measuring 0.9 cm. Normal less than 0.2 cm Adrenal glands: The adrenal glands are normal. Gallbladder: Surgically absent. The common bile duct is prominent. Kidneys: No masses are evident. No hydronephrosis is present. No cysts are present. There is a 1.8 cm calcification at the inferior pole right kidney without obstruction. Aorta: Vascular calcification is within the aorta. Inferior vena cava: Normal. CT PELVIS: There are dilated small bowel loops containing fluid extending into an anterior abdominal wall hernia . There appears to be transition in this location. Findings are compatible with small bowel entrapmen t within the periumbilical hernia. Descending colon contains fecal debris. First the right ascending and transverse colon resection. Appendix: Absent Urinary bladder: Decompressed with limited evaluation Genitourinary structures: Prostate contains calcification. Osseous structures: No suspicious lytic or sclerotic lesions. Postsurgical changes are present L5-S1. Report was called to the emergency room by Dr. Schreiber by telephone [id number] hours 10/08/2021 IMPRESSIONS: 1. Small bowel obstruction which appears to transition at the anterior abdominal wall periumbilical hernia. 2. Nonobstructing inferior pole right renal stone. 3. Dilated common bile duct and pancreatic duct. A punctate calcification may be within the pancreati c head. Other etiologies for obstruction however should be worked up. This is an interval finding 2020.
[2021-10-08] MEDS ORDERED: HYDROmorphone 1 MG/ML 1 ML SYRINGE IVP STA (18:33)
[2021-10-08 18:34] LABS: Appearance,Urine Cloudy (Clear); Bilirubin,Urine 1+ (Negative); Blood,Urine Negative (Negative); Calcium Oxalate Crystals,Urine Few /hpf; Color,Urine Yellow; Glucose,Urine (UA) Negative (Negative); Hyaline Casts,Urine 4 /lpf (0-2); Ketones,Urine Trace (Negative); Leukocyte Esterase,Urine Negative (Negative); Mucus,Urine Rare /hpf; Nitrite,Urine Negative (Negative); Protein,Urine 1+ (Negative); RBC,Urine 10 /hpf (0-5); Specific Gravity,Urine 1.035 (1.001-1.035); Squamous Epithelial Cell,Urine <1 /hpf (0-4); Uric Acid Crystals,Urine Rare /hpf; WBC,Urine 2 /hpf (0-5)
[2021-10-08 22:07] VITALS: BP 135/74; PULSE 70
== END 2021-10-08 22:07 | disposition other institution (70) ==
LOC: EC 14:58
DX: K50.90 Crohn's disease, unspecified, without complications (principal); K56.609 Unspecified intestinal obstruction, unspecified as to partial versus complete obstruction; E11.9 Type 2 diabetes mellitus without complications; J45.909 Unspecified asthma, uncomplicated; M19.90 Unspecified osteoarthritis, unspecified site; K21.9 Gastro-esophageal reflux disease without esophagitis; Z87.891 Personal history of nicotine dependence; Z86.73 Personal history of transient ischemic attack (TIA), and cerebral infarction without residual deficits; Z88.6 Allergy status to analgesic agent; Z88.8 Allergy status to other drugs, medicaments and biological substances; Z88.0 Allergy status to penicillin; Z91.030 Bee allergy status; Z79.899 Other long term (current) drug therapy; Z79.51 Long term (current) use of inhaled steroids; Z79.4 Long term (current) use of insulin
CPT/HCPCS: 36415; 80053; 83605; 83690; 85025; 85610; 85730; 81001; 74177; 99285; 96374; 96375; 96376; J0780; J1170 ×2; Q9967; 99284

== ENCOUNTER 2021-12-07 19:42 | Inpatient (IN) | payer MEDICARE ==
[2021-12-07] MEDS ORDERED: IPRATROPIUM-ALBUTEROL 3 ML NEB INHALATION STA (20:25)
[2021-12-07] MEDS ORDERED: methylPREDNISolone SOD SUCCI 125 MG/2 ML VIAL IV STA (20:25)
[2021-12-07] MEDS ORDERED: IPRATROPIUM-ALBUTEROL 3 ML NEB INHALATION ONE (20:55)
[2021-12-07 20:58] LABS: Anisocytosis Slight; Basophils % (A) 0 %; Eosinophils % (A) 0 %; Lymphocytes # (A) 1.8 k/uL (1.0-4.8); Lymphocytes % (A) 25 %; MCH 34.6 pg (25.0-35.0); MCHC 34.1 g/dL (31.0-37.0); MCV 101.6 fL (80.0-100.0); Macrocytosis Slight; Mean Platelet Volume 8.3; Monocytes # (A) 0.4 k/uL (0-1.0); Monocytes % (A) 5 %; Neutrophils # (A) 4.7 k/uL (1.3-7.7); Neutrophils % (A) 67 %; Platelet Count 165 k/uL (150-450); RBC 3.15 m/uL (4.30-5.90); RDW 16.3 % (11.5-15.5); WBC 7.1 k/uL (3.8-10.6)
[2021-12-07 20:59] LABS: Albumin 4.4 g/dL (3.5-5.0); Calcium 8.9 mg/dL (8.4-10.2); Potassium 2.8 mmol/L (3.5-5.1); Total Bilirubin 1.4 mg/dL (0.2-1.3); Total Protein 8.4 g/dL (6.3-8.2)
--- NOTE | 2021-12-07 21:01 | XR ---
EXAMINATION TYPE: XR chest 2V DATE OF EXAM: 12/07/2021 COMPARISON: 03/31/2021 HISTORY: Short of breath TECHNIQUE: 2 views FINDINGS: Heart is normal. Lungs are clear of consolidation. There is some mild blunting of the costo phrenic angles. There are no hilar masses. The bony thorax is intact. There are chest leads. IMPRESSION: Mild pleural reaction at the lung bases which is the same or slightly improved compared t o the old exam. Normal heart.
[2021-12-07] MEDS ORDERED: SODIUM CHLORIDE 0.9% 1,000 ML IV STA ×2 (21:04→22:17)
[2021-12-07] MEDS ORDERED: POTASSIUM CHLORIDE ER 20 MEQ TAB.ER PO STA (21:04)
[2021-12-07 21:06] LABS: INR 1.1 (<1.2); Partial Thromboplastin Time 23.8 sec (22.0-30.0); Prothrombin Time 11.4 sec (9.0-12.0)
[2021-12-07 21:09] LABS: HGB 10.9 gm/dL (13.0-17.5)
[2021-12-07] MEDS: MAGNESIUM SULFATE-D5W PMX 1 GM in DEXTROSE/WATER 1 100ML.BAG IVPB SCH (22:09)
[2021-12-07] MEDS ORDERED: NALOXONE 0.4 MG/ML 1 ML VIAL IV PRN (22:18)
[2021-12-07] MEDS ORDERED: DEXTROSE 50% SYRINGE 50 ML IVP PRN ×2 (22:26)
--- NOTE | 2021-12-07 22:28 | ED ---
General Adult HPI - General Chief complaint: Shortness of Breath Stated complaint: DARLINE Time Seen by Provider: 12/07/21 19:50 Source: patient, RN notes reviewed, old records reviewed Mode of arrival: ambulatory Limitations: no limitations - History of Present Illness Initial comments: Patient is a 66-year-old male who presents emergency Department with complaints of feeling fatigued as well as somewhat short of breath. He is concerned his COPD is acting up. Does have a history of Crohn's disease, however denies any worsening abdominal pain. Has had a few episodes of nausea as well as nonbilious, but emesis over the last few days. Patient has also had a few episodes of nonbloody diarrhea over the last few days. Denies any abdominal pain. Denies any chest pain currently but states he did have brief chest pain earlier today. Lasted less than 10 minutes at approximately 3 PM. Was substernal and over the lower right side of his chest. Resolved on its own. Was mild per patient. Has been having a nonproductive cough. Has been short of breath. Denies any change in his urination. Denies any headaches. Denies any focal weakness but endorses generalized fatigue and weakness. Denies any sick contacts. Presents for further evaluation at this time. - Related Data Home Medications Medication Instructions Recorded Confirmed levETIRAcetam [Keppra] 500 mg PO DAILY 02/22/17 12/07/21 levETIRAcetam [Keppra] 1,000 mg PO HS 03/10/17 12/07/21 Albuterol Sulfate [Albuterol 2 puff INHALATION RT-Q4H PRN 01/21/20 12/07/21 Sulfate Hfa] Insulin Lispro [humaLOG Kwikpen] See Protocol SQ AC-TID 01/21/20 12/07/21 Budesonide/Formoterol Fumarate 2 puff INHALATION RT-BID 05/08/20 12/07/21 [Symbicort 160-4.5 Mcg Inhaler] Atorvastatin [Lipitor] 20 mg PO DAILY 12/01/20 12/07/21 Certolizumab Pegol [Cimzia] 400 mg SQ Q28D 07/17/21 12/07/21 Insulin Glargine,Hum.rec.anlog 6 unit SQ HS 07/17/21 12/07/21 [Lantus Solostar Pen] Tiotropium [place] [Spiriva] 1 cap INHALATION RT-DAILY 07/17/21 12/07/21 Baclofen [Lioresal] 20 mg PO BID 10/08/21 12/07/21 Budesonide [Entocort EC] 9 mg PO DAILY 10/08/21 12/07/21 Nortriptyline [Pamelor] 25 mg PO TID 10/08/21 12/07/21 Omeprazole 20 mg PO DAILY 10/08/21 12/07/21 Lidocaine-Prilocaine Cream [Emla 1 applic TOPICAL Q28D PRN 12/07/21 12/07/21 Cream 2.5%/2.5%] Allergies Allergy/AdvReac Type Severity Reaction Status Date / Time aspirin Allergy Anaphylaxis Verified 12/07/21 21:20 penicillin G Allergy Rash/Hives Verified 12/07/21 21:20 venom-wasp [Wasp Venom] Allergy Anaphylaxis Verified 12/07/21 21:20 nalbuphine HCl [From Nubain] AdvReac Vomiting Verified 12/07/21 21:20 ondansetron HCl [From Zofran] AdvReac severe Verified 12/07/21 21:20 vomiting Review of Systems ROS Statement: Those systems with pertinent positive or pertinent negative responses have been documented in the HPI. Review of Systems: CONST: Denies fever EYES: Denies blurry vision ENT: Denies nasal congestion C/V: Denies Chest pain RESP: Endorses dyspnea GI: Denies abdominal pain : Denies dysuria SKIN: Denies rash. MSK: Denies joint pain. NEURO: Denies headache ROS Other: All systems not noted in ROS Statement are negative. Past Medical History Past Medical History: Asthma, CVA/TIA, Diabetes Mellitus, Deep Vein Thrombosis (DVT), GERD/Reflux, Osteoarthritis (OA), Skin Disorder Additional Past Medical History / Comment(s): HX OF KIDNEY STONES, CROHNS DISEASE, HX OF BLOOD CLOT RT ARM AND BEHIND RT KNEE, TIA/seizure/brain bleed 08/2016, see Dr Wright H&P, "spots of dry skin", hx anemia, september 2018 stone removed L kidney History of Any Multi-Drug Resistant Organisms: MRSA Date of last positivie culture/infection: 2006 MDRO Source:: nose Past Surgical History: Appendectomy, Back Surgery, Bowel Resection, Cholecystectomy, Heart Catheterization, Prostate Surgery Additional Past Surgical History / Comment(s): BOWEL RESECTION X 5, SPINAL SURGERIES X3, LEFT LOBECTOMY. lithotripsy, TURP, neck fusion. Past Anesthesia/Blood Transfusion Reactions: No Reported Reaction Past Psychological History: No Psychological Hx Reported Smoking Status: Former smoker Past Alcohol Use History: None Reported Past Drug Use History: None Reported - Past Family History Mother Family Medical History: Deep Vein Thrombosis (DVT) General Exam - General Exam Comments Initial Comments: General: Appears in no acute distress. HEAD: Normal with no signs of head trauma. EYES: PERRLA, EOMI, conjunctiva normal, no discharge. ENT: Hearing grossly intact, normal oropharynx. RESPIRATORY: Bilateral end expiratory wheezing in both lung sood. No obvious rhonchi. No hypoxia when transitioned to room air. Mild tachypnea. C/V: Regular rate and rhythm. S1 and S2 auscultated, no edema, peripheral pulses 2+ and intact throughout ABD: Abd is soft, nontender, nondistended. No guarding. No peritoneal signs. No rebound tenderness. EXT: Normal range of motion, no obvious deformity SKIN: No rashes or lesions observed on exposed skin. NEURO: Alert and oriented 4. No focal deficits. History of strabismus. Limitations: no limitations Course Vital Signs 12/07/21 12/07/21 12/07/21 19:45 20:03 21:04 Temperature 98.1 F 98.0 F Pulse Rate 101 H 95 Pulse Rate [ 102 H Photo Tube Assembler ] Respiratory 34 H 34 H 24 Rate Blood Pressure 131/90 116/78 O2 Sat by Pulse 99 98 Oximetry 12/07/21 12/07/21 12/07/21 21:17 21:23 22:00 Temperature Pulse Rate 88 88 82 Pulse Rate [ Photo Tube Assembler ] Respiratory 24 Rate Blood Pressure O2 Sat by Pulse 97 Oximetry 12/07/21 23:34 Temperature 98.2 F Pulse Rate 86 Pulse Rate [ Photo Tube Assembler ] Respiratory 23 Rate Blood Pressure 118/82 O2 Sat by Pulse 98 Oximetry Medical Decision Making - Medical Decision Making Based on the patient's presentation and physical exam, he presents as a COPD exacerbation but cannot rule out other causes including infectious as he is having nausea, vomiting, diarrhea. Is not having abdominal pain which is typical for his Crohn's flare. Denies any sick contacts. Endorses generous fatigue. Please see may be sick. Presents for further evaluation at this time. Vital signs are also within normal limits. Mild increased work of breathing. We will treat him for COPD exacerbation with breathing treatments as well as IV steroids. We'll obtain infectious and cut her palm a labs as well. He was in agreement this plan. EKG shows no signs of acute ischemia. Chest x-ray shows no acute cardiopulmonary process. Laboratory studies shows a chronic macrocytic anemia with a hemoglobin of 10.9. Patient has hypokalemic at 2.8. Patient's hypomagnesemic at 1.0. Both were replenished. Patient has an AK I with an anion gap metabolic acidosis, unknown cause. Suspect from dehydration due to the persistent nausea and vomiting. May have a lactic acidosis. This is pending at this time. No leukocytosis. No obvious signs of infection at this time. Troponin is undetectable. Covid and flu were negative. Vital signs in the department remained within normal limits. Successfully titrated the patient to room air. Saturations remained 95% or higher throughout his stay in the ED. Tachypnea resolved. Was resting comfortably. I updated the patient. I would like to admit him to the hospital for further monitoring at this time. He was in agreement this plan. I spoke with the admitting physician, Dr. Sotelo who accepted the admission. We will continue to treat him for COPD exacerbation as well as provide IV fluid hydration and electrolyte replenishment. Electrolyte abnormalities and acidosis could be secondary to his multiple episodes of nausea, vomiting, diarrhea over the last few days as well as dehydration. - Lab Data Result diagrams: 12/07/21 20:20 12/07/21 20:20 Lab Results 12/07/21 12/07/21 12/07/21 Range/Units 20:20 20:20 20:20 WBC 7.1 (3.8-10.6) k/uL RBC 3.15 L (4.30-5.90) m/uL Hgb 10.9 L D (13.0-17.5) gm/dL Hct 32.0 L (39.0-53.0) % MCV 101.6 H (80.0-100.0) fL MCH 34.6 (25.0-35.0) pg MCHC 34.1 (31.0-37.0) g/dL RDW 16.3 H (11.5-15.5) % Plt Count 165 (150-450) k/uL MPV 8.3 Neutrophils % 67 % Lymphocytes % 25 % Monocytes % 5 % Eosinophils % 0 % Basophils % 0 % Neutrophils # 4.7 (1.3-7.7) k/uL Lymphocytes # 1.8 (1.0-4.8) k/uL Monocytes # 0.4 (0-1.0) k/uL Eosinophils # 0.0 (0-0.7) k/uL Basophils # 0.0 (0-0.2) k/uL Anisocytosis Slight Macrocytosis Slight PT 11.4 (9.0-12.0) sec INR 1.1 (<1.2) APTT 23.8 (22.0-30.0) sec Sodium 138 (137-145) mmol/L Potassium 2.8 L (3.5-5.1) mmol/L Chloride 103 (98-107) mmol/L Carbon Dioxide 13 L (22-30) mmol/L Anion Gap 22 mmol/L BUN 36 H (9-20) mg/dL Creatinine 2.89 H (0.66-1.25) mg/dL Est GFR (CKD-EPI)AfAm 25 (>60 ml/min/1.73 sqM) Est GFR (CKD-EPI)NonAf 22 (>60 ml/min/1.73 sqM) Glucose 213 H (74-99) mg/dL Calcium 8.9 (8.4-10.2) mg/dL Magnesium 1.0 L (1.6-2.3) mg/dL Total Bilirubin 1.4 H (0.2-1.3) mg/dL AST 21 (17-59) U/L ALT 19 (4-49) U/L Alkaline Phosphatase 131 H (38-126) U/L Troponin I (0.000-0.034) ng/mL Total Protein 8.4 H (6.3-8.2) g/dL Albumin 4.4 (3.5-5.0) g/dL Coronavirus (PCR) (Not Detectd) Influenza Type A RNA (Not Detectd) Influenza Type B (PCR) (Not Detectd) 12/07/21 12/07/21 12/07/21 Range/Units 20:20 21:01 21:01 WBC (3.8-10.6) k/uL RBC (4.30-5.90) m/uL Hgb (13.0-17.5) gm/dL Hct (39.0-53.0) % MCV (80.0-100.0) fL MCH (25.0-35.0) pg MCHC (31.0-37.0) g/dL RDW (11.5-15.5) % Plt Count (150-450) k/uL MPV Neutrophils % % Lymphocytes % % Monocytes % % Eosinophils % % Basophils % % Neutrophils # (1.3-7.7) k/uL Lymphocytes # (1.0-4.8) k/uL Monocytes # (0-1.0) k/uL Eosinophils # (0-0.7) k/uL Basophils # (0-0.2) k/uL Anisocytosis Macrocytosis PT (9.0-12.0) sec INR (<1.2) APTT (22.0-30.0) sec Sodium (137-145) mmol/L Potassium (3.5-5.1) mmol/L Chloride (98-107) mmol/L Carbon Dioxide (22-30) mmol/L Anion Gap mmol/L BUN (9-20) mg/dL Creatinine (0.66-1.25) mg/dL Est GFR (CKD-EPI)AfAm (>60 ml/min/1.73 sqM) Est GFR (CKD-EPI)NonAf (>60 ml/min/1.73 sqM) Glucose (74-99) mg/dL Calcium (8.4-10.2) mg/dL Magnesium (1.6-2.3) mg/dL Total Bilirubin (0.2-1.3) mg/dL AST (17-59) U/L ALT (4-49) U/L Alkaline Phosphatase (38-126) U/L Troponin I <0.012 (0.000-0.034) ng/mL Total Protein (6.3-8.2) g/dL Albumin (3.5-5.0) g/dL Coronavirus (PCR) Not Detected (Not Detectd) Influenza Type A RNA Not Detected (Not Detectd) Influenza Type B (PCR) Not Detected (Not Detectd) - EKG Data -: EKG Interpreted by Ct EKG Comments: 12-lead Electrocardiogram Interpretation Note EKG was reviewed and interpreted by myself. 12-lead ECG performed at 2108 is interpreted by me as revealing normal sinus rhythm at a rate of 88 beats per minute. Jackson is normal. [place] interval is 173 ms, QRS durations 102 ms, QTc is 437 ms.. There were no ST or T wave abnormalities to suggest myocardial ischemia or injury. R wave progression across the precordium was satisfactory. By my interpretation this EKG is non-diagnostic for acute ischemia. Disposition Clinical Impression: Dehydration, Hypokalemia, Hypomagnesemia, MEL (acute kidney injury), COPD exacerbation, Metabolic acidosis, Vomiting, Diarrhea Disposition: ADMITTED IP TO THIS HOSP Condition: Stable Is patient prescribed a controlled substance at d/c from ED?: No Time of Disposition: 21:10
[2021-12-07] MEDS ORDERED: IPRATROPIUM-ALBUTEROL 3 ML NEB INHALATION PRN (22:34)
[2021-12-08] MEDS ORDERED: IPRATROPIUM-ALBUTEROL 3 ML NEB INHALATION SCH
[2021-12-08 00:30] LABS: VBG PH 7.3 (7.31-7.41)
[2021-12-08 00:33] LABS: Glucose,Whole Blood 260 mg/dL (70-110)
[2021-12-08] MEDS: MAGNESIUM SULFATE-D5W PMX 1 GM in DEXTROSE/WATER 1 100ML.BAG IVPB SCH (00:35)
[2021-12-08] MEDS ORDERED: POTASSIUM CHLORIDE 10 MEQ in WATER FOR INJECTION 1 100ML.BAG IVPB STA (00:46)
[2021-12-08 00:48] LABS: ABG Base Excess -9.9 mmol/L; ABG HCO3 16 mmol/L (21-25); ABG Hematocrit 33 % (34.0-46.0); ABG Oxygen Saturation 82.6 % (94-97); ABG PCO2 29 mmHg (35-45); ABG PH 7.34 (7.35-7.45); ABG TCO2 17 mmol/L (19-24); Allen Test Performed? Yes
[2021-12-08 00:50] LABS: ABG PO2 54 mmHg (83-108)
[2021-12-08] MEDS ORDERED: SODIUM CHLORIDE 0.9% 1,000 ML IV ONE (00:58)
--- NOTE | 2021-12-08 01:10 | XR ---
EXAMINATION TYPE: XR chest 1V portable DATE OF EXAM: 12/08/2021 COMPARISON: 12/07/2021 HISTORY: Respiratory distress TECHNIQUE: Single view FINDINGS: There is no heart failure nor confluent pneumonic infiltrate. There is slight blunting righ t costophrenic angle. There are no hilar masses. There are chest leads. Bony thorax is intact. IMPRESSION: There is some pleural diaphragmatic scarring or fluid lateral right lung base without simran nge. No pulmonary consolidation or heart failure.
[2021-12-08 01:20] LABS: Basophils % (A) 1 %; Eosinophils % (A) 0 %; HCT 28.8 % (39.0-53.0); HGB 9.8 gm/dL (13.0-17.5); Lymphocytes # (A) 0.6 k/uL (1.0-4.8); Lymphocytes % (A) 13 %; MCH 34.6 pg (25.0-35.0); MCHC 33.9 g/dL (31.0-37.0); MCV 101.9 fL (80.0-100.0); Macrocytosis Slight; Mean Platelet Volume 8.2; Monocytes # (A) 0.1 k/uL (0-1.0); Monocytes % (A) 2 %; Neutrophils # (A) 3.7 k/uL (1.3-7.7); Neutrophils % (A) 85 %; Platelet Count 101 k/uL (150-450); RBC 2.83 m/uL (4.30-5.90); RDW 15.7 % (11.5-15.5); WBC 4.4 k/uL (3.8-10.6)
[2021-12-08 01:21] LABS: African American GFR (CKD) 26 (>60 ml/min/1.73 sqM); Anion Gap 20 mmol/L; Blood Urea Nitrogen 37 mg/dL (9-20); Calcium 8.6 mg/dL (8.4-10.2); Carbon Dioxide 15 mmol/L (22-30); Chloride 103 mmol/L (98-107); Glucose 232 mg/dL (74-99); Magnesium 1.2 mg/dL (1.6-2.3); Non-African American GFR(CKD) 22 (>60 ml/min/1.73 sqM); Potassium 2.8 mmol/L (3.5-5.1); Sodium 138 mmol/L (137-145)
[2021-12-08 01:46] LABS: Calcium 7.2 mg/dL (8.4-10.2); Potassium 3.4 mmol/L (3.5-5.1)
[2021-12-08 01:56] LABS: Prothrombin Time 11.3 sec (9.0-12.0)
[2021-12-08] MEDS: HEPARIN SODIUM,PORCINE/PF 5,000 UNIT/0.5 ML SYRINGE SQ SCH ×4 (02:46→22:31)
--- NOTE | 2021-12-08 03:30 | P.HPIM ---
History of Present Illness H&P Date: 12/08/21 The patient is a 66-year-old male with a PMH of seizure disorder, type II DM, COPD, hyperlipidemia who presented to the emergency room with complaints of shortness of breath and fatigue. Before the patient could be seen, he had been moved to the medicine floor where an A team was subsequently activated. The patient was noted to be confused and hypoxic. The patient's vital signs however quickly normalized with supplemental oxygen. Upon arrival at the scene, the patient's BP was 133/75, SpO2 95% on 10 L nasal cannula oxygen, pulse 92, respiratory rate 35, and temperature 98.1F. The patient stated that he has been feeling fatigued over the past few days and has been experiencing nausea wi th episodes of vomiting. He also reported mild abdominal discomfort, unable to quantify. In the emergency room however, the patient did endorse a brief episode of chest discomfort lasting for around 10 minutes, substernal. He also reported a nonproductive cough and was concerned that his COPD may have been acting up.chest x-ray in the emergency room was unremarkable with repeat x-ray also unremarkable. EKG revealed sinus rhythm at 88 bpm with Q waves in leads V4 to V6. Laboratory evaluation was remarkable for VBG showing pH 7.34 and pCO2 29, sodium 138, potassium 2.8, CO2 15, lactic acid 3.1, BUN 37, creatinine 2.79, magnesium 1.0, and troponin less than 0.012. D-dimer was subsequently obtained and was 0.44. Review of systems: Pertinent positives and negatives as discussed in HPI, a complete review of systems was performed and all other systems are negative. Physical examination: General: Somewhat ill-appearing male, no distress, appears at stated age, overweight Derm: no unusual rashes/lesions, warm Head: atraumatic, normocephalic, symmetric Eyes: EOMI, no lid lag, anicteric sclera, pupils equal round reactive to light ENT: Nose and ears atraumatic Neck: No cervical lymphadenopathy, trachea midline, supple Mouth: no lip lesion, mucus membranes moist Cardiovascular: S1S2 reg, no murmur, positive dorsalis pedis pulse bilateral, no edema Lungs: CTA bilateral, no rhonchi, no rales, no accessory muscle use Abdominal: soft, nontender to palpation, no guarding Ext: muscle strength 5 out of 5 in all 4 extremities grossly, no gross muscle atrophy, no contractures, Neuro: CN II-XI grossly intact, no gross focal neuro deficits Psych: Somewhat lethargic, oriented to person and place, not oriented to time, appropriate affect Assessment/plan Altered mental status, unclear etiology -Obtain ammonia levels -Neurochecks -Fall precautions -Neurology consult -Keppra levels ordered -Obtain urine toxicology -CT brain ordered Acute kidney injury, suspected secondary to poor oral intake -Continue with IV fluids -Status post 2 L normal saline bolus -Nephrology consult Hypokalemia and hypomagnesemia -Replace and monitor Acute hypoxic respiratory failure, suspected secondary to acute COPD exacerbation -Continue with DuoNeb's -Solu-Medrol -Supplement oxygen Chronic conditions: Type II DM, COPD, hyperlipidemia, seizure disorder -Continue with home meds -Insulin sliding scale and blood glucose monitoring DVT prophylaxis -Heparin subq The patient is admitted with an anticipated greater than 2 midnight stay for evaluation of AMS CODE STATUS: Full Code Discussed with: Patient Anticipated discharge date: 3-[address]: Home Past Medical History Past Medical History: Asthma, CVA/TIA, Diabetes Mellitus, Deep Vein Thrombosis (DVT), GERD/Reflux, Osteoarthritis (OA), Skin Disorder Additional Past Medical History / Comment(s): HX OF KIDNEY STONES, CROHNS DISEASE, HX OF BLOOD CLOT RT ARM AND BEHIND RT KNEE, TIA/seizure/brain bleed 08/2016, see Dr Wright H&P, "spots of dry skin", hx anemia, september 2018 stone removed L kidney History of Any Multi-Drug Resistant Organisms: MRSA Date of last positivie culture/infection: 2006 MDRO Source:: nose Past Surgical History: Appendectomy, Back Surgery, Bowel Resection, Cholecystectomy, Heart Catheterization, Prostate Surgery Additional Past Surgical History / Comment(s): BOWEL RESECTION X 5, SPINAL SURG ERIES X3, LEFT LOBECTOMY. lithotripsy, TURP, neck fusion. Past Anesthesia/Blood Transfusion Reactions: No Reported Reaction Past Psychological History: No Psychological Hx Reported Smoking Status: Former smoker Past Alcohol Use History: None Reported Past Drug Use History: None Reported - Past Family History Mother Family Medical History: Deep Vein Thrombosis (DVT) Medications and Allergies Home Medications Medication Instructions Recorded Confirmed Type levETIRAcetam [Keppra] 500 mg PO DAILY 02/22/17 12/07/21 History levETIRAcetam [Keppra] 1,000 mg PO HS 03/10/17 12/07/21 History Albuterol Sulfate [Albuterol 2 puff INHALATION RT-Q4H PRN 01/21/20 12/07/21 History Sulfate Hfa] Insulin Lispro [humaLOG Kwikpen] See Protocol SQ AC-TID 01/21/20 12/07/21 History Budesonide/Formoterol Fumarate 2 puff INHALATION RT-BID 05/08/20 12/07/21 History [Symbicort 160-4.5 Mcg Inhaler] Atorvastatin [Lipitor] 20 mg PO DAILY 12/01/20 12/07/21 History Certolizumab Pegol [Cimzia] 400 mg SQ Q28D 07/17/21 12/07/21 History Insulin Glargine,Hum.rec.anlog 6 unit SQ HS 07/17/21 12/07/21 History [Lantus Solostar Pen] Tiotropium [place] [Spiriva] 1 cap INHALATION RT-DAILY 07/17/21 12/07/21 History Baclofen [Lioresal] 20 mg PO BID 10/08/21 12/07/21 History Budesonide [Entocort EC] 9 mg PO DAILY 10/08/21 12/07/21 History Nortriptyline [Pamelor] 25 mg PO TID 10/08/21 12/07/21 History Omeprazole 20 mg PO DAILY 10/08/21 12/07/21 History Lidocaine-Prilocaine Cream [Emla 1 applic TOPICAL Q28D PRN 12/07/21 12/07/21 History Cream 2.5%/2.5%] Allergies Allergy/AdvReac Type Severity Reaction Status Date / Time aspirin Allergy Anaphylaxis Verified 12/07/21 21:20 penicillin G Allergy Rash/Hives Verified 12/07/21 21:20 venom-wasp [Wasp Venom] Allergy Anaphylaxis Verified 12/07/21 21:20 nalbuphine HCl [From Nubain] AdvReac Vomiting Verified 12/07/21 21:20 ondansetron HCl [From Zofran] AdvReac severe Verified 12/07/21 21:20 vomiting Physical Exam Vitals: Vital Signs Temp Pulse Pulse Pulse Resp BP BP 12/07/21 23:50 98.1 F 225 H 40 H 133/75 12/07/21 23:34 98.2 F 86 23 118/82 12/07/21 22:00 82 24 12/07/21 21:23 88 12/07/21 21:17 88 12/07/21 21:04 98.0 F 95 24 116/78 12/07/21 20:03 102 H 34 H 12/07/21 19:45 98.1 F 101 H 34 H 131/90 Pulse Ox 12/07/21 23:50 68 L 12/07/21 23:34 98 12/07/21 22:00 97 12/07/21 21:23 12/07/21 21:17 12/07/21 21:04 98 12/07/21 20:03 12/07/21 19:45 99 Intake and Output 12/07/21 12/07/21 12/08/21 14:59 22:59 06:59 Other: Weight 88.904 kg Results CBC & Chem 7: 12/08/21 01:05 12/08/21 01:20 Labs: Abnormal Lab Results - Last 24 Hours (Table) 12/07/21 12/07/21 12/07/21 Range/Units 20:20 20:20 23:13 RBC 3.15 L (4.30-5.90) m/uL Hgb 10.9 L D (13.0-17.5) gm/dL Hct 32.0 L (39.0-53.0) % MCV 101.6 H (80.0-100.0) fL RDW 16.3 H (11.5-15.5) % Plt Count (150-450) k/uL Lymphocytes # (1.0-4.8) k/uL ABG pH (7.35-7.45) ABG pCO2 (35-45) mmHg ABG pO2 (83-108) mmHg ABG HCO3 (21-25) mmol/L ABG Total CO2 (19-24) mmol/L ABG O2 Saturation (94-97) % ABG Hematocrit (34.0-46.0) % VBG pH (7.31-7.41) VBG pCO2 (37-51) mmHg VBG HCO3 (24-28) mmol/L Hemoglobin (13.0-17.5) gm/dL Sodium (137-145) mmol/L Potassium 2.8 L (3.5-5.1) mmol/L Chloride (98-107) mmol/L Carbon Dioxide 13 L (22-30) mmol/L BUN 36 H (9-20) mg/dL Creatinine 2.89 H (0.66-1.25) mg/dL Glucose 213 H (74-99) mg/dL POC Glucose (mg/dL) (70-110) mg/dL Plasma Lactic Acid Jose Miguel 3.1 H* (0.7-2.0) mmol/L Calcium (8.4-10.2) mg/dL Magnesium 1.0 L (1.6-2.3) mg/dL Total Bilirubin 1.4 H (0.2-1.3) mg/dL Alkaline Phosphatase 131 H (38-126) U/L Total Protein 8.4 H (6.3-8.2) g/dL 12/07/21 12/07/21 12/08/21 Range/Units 23:14 23:15 00:31 RBC (4.30-5.90) m/uL Hgb (13.0-17.5) gm/dL Hct (39.0-53.0) % MCV (80.0-100.0) fL RDW (11.5-15.5) % Plt Count (150-450) k/uL Lymphocytes # (1.0-4.8) k/uL ABG pH (7.35-7.45) ABG pCO2 (35-45) mmHg ABG pO2 (83-108) mmHg ABG HCO3 (21-25) mmol/L ABG Total CO2 (19-24) mmol/L ABG O2 Saturation (94-97) % ABG Hematocrit (34.0-46.0) % VBG pH 7.30 L (7.31-7.41) VBG pCO2 35 L (37-51) mmHg VBG HCO3 17 L (24-28) mmol/L Hemoglobin (13.0-17.5) gm/dL Sodium (137-145) mmol/L Potassium 2.8 L (3.5-5.1) mmol/L Chloride (98-107) mmol/L Carbon Dioxide 15 L (22-30) mmol/L BUN 37 H (9-20) mg/dL Creatinine 2.79 H (0.66-1.25) mg/dL Glucose 232 H (74-99) mg/dL POC Glucose (mg/dL) 260 H (70-110) mg/dL Plasma Lactic Acid Jose Miguel (0.7-2.0) mmol/L Calcium (8.4-10.2) mg/dL Magnesium 1.2 L (1.6-2.3) mg/dL Total Bilirubin (0.2-1.3) mg/dL Alkaline Phosphatase (38-126) U/L Total Protein (6.3-8.2) g/dL 12/08/21 12/08/21 12/08/21 Range/Units 00:46 01:05 01:20 RBC 2.83 L (4.30-5.90) m/uL Hgb 9.8 L (13.0-17.5) gm/dL Hct 28.8 L (39.0-53.0) % MCV 101.9 H (80.0-100.0) fL RDW 15.7 H (11.5-15.5) % Plt Count 101 L (150-450) k/uL Lymphocytes # 0.6 L (1.0-4.8) k/uL ABG pH 7.34 L (7.35-7.45) ABG pCO2 29 L (35-45) mmHg ABG pO2 54 L* (83-108) mmHg ABG HCO3 16 L (21-25) mmol/L ABG Total CO2 17 L (19-24) mmol/L ABG O2 Saturation 82.6 L (94-97) % ABG Hematocrit 33 L (34.0-46.0) % VBG pH (7.31-7.41) VBG pCO2 (37-51) mmHg VBG HCO3 (24-28) mmol/L Hemoglobin 10.7 L (13.0-17.5) gm/dL Sodium 135 L (137-145) mmol/L Potassium 3.4 L (3.5-5.1) mmol/L Chloride 108 H (98-107) mmol/L Carbon Dioxide 12 L (22-30) mmol/L BUN 35 H (9-20) mg/dL Creatinine 2.16 H (0.66-1.25) mg/dL Glucose 248 H (74-99) mg/dL POC Glucose (mg/dL) (70-110) mg/dL Plasma Lactic Acid Jose Miguel (0.7-2.0) mmol/L Calcium 7.2 L (8.4-10.2) mg/dL Magnesium (1.6-2.3) mg/dL Total Bilirubin (0.2-1.3) mg/dL Alkaline Phosphatase (38-126) U/L Total Protein (6.3-8.2) g/dL Thrombosis Risk Factor Assmnt - Choose All That Apply Any of the Below Risk Factors Present?: Yes Each Risk Factor Represents 2 Points: Age 61-74 years Each Risk Factor Represents 3 Points: History of DVT/PE Thrombosis Risk Factor Assessment Total Risk Factor Score: 5 Thrombosis Risk Factor Assessment Level: High Risk
--- NOTE | 2021-12-08 04:07 | CT ---
EXAMINATION TYPE: CT brain wo con DATE OF EXAM: 12/08/2021 COMPARISON: 03/31/2021 HISTORY: increased ams CT DLP: 2335.4 mGycm Automated exposure control for dose reduction was used. Images of the brain obtained with no contrast. Ventricles have normal size. There is no mass effect or midline shift. No sign of intracranial hemorr jamal. There is mild cerebral atrophy. Calvarium is intact. IMPRESSION: Mild atrophy. No acute intracranial abnormality. No significant change.
[2021-12-08 04:15] LABS: Amorphous Sediment,Urine Rare /hpf; Appearance,Urine Cloudy (Clear); Bilirubin,Urine Negative (Negative); Blood,Urine Large (Negative); Color,Urine Yellow; Glucose,Urine (UA) Trace (Negative); Hyaline Casts,Urine 145 /lpf (0-2); Ketones,Urine Trace (Negative); Leukocyte Esterase,Urine Negative (Negative); Mucus,Urine Rare /hpf; Nitrite,Urine Negative (Negative); PH, Urine 5.5 (5.0-8.0); Protein,Urine 1+ (Negative); RBC,Urine 173 /hpf (0-5); Specific Gravity,Urine 1.019 (1.001-1.035); Squamous Epithelial Cell,Urine <1 /hpf (0-4); Urobilinogen,Urine <2.0 mg/dL (<2.0); WBC,Urine 2 /hpf (0-5)
[2021-12-08 05:36] LABS: Basophils % (A) 1 %; Eosinophils % (A) 0 %; HCT 28.8 % (39.0-53.0); HGB 9.6 gm/dL (13.0-17.5); Lymphocytes # (A) 0.6 k/uL (1.0-4.8); Lymphocytes % (A) 19 %; MCH 34.1 pg (25.0-35.0); MCHC 33.4 g/dL (31.0-37.0); Macrocytosis Slight; Mean Platelet Volume 8.5; Monocytes # (A) 0.1 k/uL (0-1.0); Monocytes % (A) 2 %; Neutrophils # (A) 2.6 k/uL (1.3-7.7); Neutrophils % (A) 77 %; Platelet Count 111 k/uL (150-450); RBC 2.82 m/uL (4.30-5.90); RDW 15.7 % (11.5-15.5); WBC 3.4 k/uL (3.8-10.6)
[2021-12-08 07:05] LABS: Glucose,Whole Blood 292 mg/dL (70-110)
[2021-12-08] MEDS ORDERED: IPRATROPIUM 0.5 MG/2.5 ML NEBU INHALATION SCH (08:00)
[2021-12-08] MEDS: IPRATROPIUM-ALBUTEROL 3 ML NEB INHALATION SCH ×4 (08:33→20:10)
[2021-12-08] MEDS: SYMBICORT 160-4.5 MCG INHALER INHALATION SCH ×2 (08:33→20:10)
[2021-12-08] MEDS: ATORVASTATIN 20 MG TAB PO SCH (09:01)
[2021-12-08] MEDS: levETIRAcetam 500 MG TAB PO SCH ×2 (09:01→21:59)
[2021-12-08] MEDS: methylPREDNISolone SOD SUCCI 40 MG/ML 1 ML VIAL IV SCH ×2 (09:01→22:00)
[2021-12-08] MEDS: PANTOPRAZOLE 40 MG TABLET PO SCH (09:01)
[2021-12-08] MEDS: BACLOFEN 10 MG TAB PO SCH ×2 (09:01→21:59)
[2021-12-08] MEDS: INSULIN ASPART (NovoLOG) 100 UNIT/ML VIAL SQ SCH ×3 (09:02→17:11)
[2021-12-08] MEDS: NORTRIPTYLINE 25 MG CAP PO SCH ×3 (09:02→21:59)
[2021-12-08] MEDS: NON FORMULARY DRUG (Budesonide [Entocort Ec] 3 MG Capdr...Er) PO SCH (10:52)
[2021-12-08 11:12] LABS: Glucose,Whole Blood 285 mg/dL (70-110)
[2021-12-08 17:05] LABS: Glucose,Whole Blood 332 mg/dL (70-110)
[2021-12-08 20:51] LABS: Glucose,Whole Blood 283 mg/dL (70-110)
[2021-12-08] MEDS: INSULIN DETEMIR (LEVEMIR) 100 UNIT/ML SYR SQ SCH (22:00)
[2021-12-09 07:17] LABS: Glucose,Whole Blood 301 mg/dL (70-110)
[2021-12-09] MEDS: SYMBICORT 160-4.5 MCG INHALER INHALATION SCH ×2 (07:56→19:11)
[2021-12-09] MEDS: IPRATROPIUM-ALBUTEROL 3 ML NEB INHALATION SCH ×4 (07:56→19:11)
[2021-12-09] MEDS: NON FORMULARY DRUG (Budesonide [Entocort Ec] 3 MG Capdr...Er) PO SCH (08:24)
[2021-12-09] MEDS: levETIRAcetam 500 MG TAB PO SCH ×2 (08:32→21:06)
[2021-12-09] MEDS: PANTOPRAZOLE 40 MG TABLET PO SCH (08:32)
[2021-12-09] MEDS: methylPREDNISolone SOD SUCCI 40 MG/ML 1 ML VIAL IV SCH (08:32)
[2021-12-09] MEDS: BACLOFEN 10 MG TAB PO SCH ×2 (08:32→21:06)
[2021-12-09] MEDS: ATORVASTATIN 20 MG TAB PO SCH (08:32)
[2021-12-09] MEDS: INSULIN ASPART (NovoLOG) 100 UNIT/ML VIAL SQ SCH ×3 (08:32→17:39)
[2021-12-09] MEDS: HEPARIN SODIUM,PORCINE/PF 5,000 UNIT/0.5 ML SYRINGE SQ SCH ×3 (08:32→22:54)
[2021-12-09] MEDS: NORTRIPTYLINE 25 MG CAP PO SCH ×3 (08:33→21:06)
--- NOTE | 2021-12-09 09:05 | P.CNNES ---
History of Present Illness Consult date: 12/08/21 Requesting physician: Rafa Sotelo Reason for Consult: Altered mental status History of Present Illness: Patient is a 66-year-old male came to the hospital by ambulance yesterday at 7:42 PM for trouble breathing, nausea vomiting and diarrhea. As per EMS flow sheet, the nausea started 2 days ago and has progressively gotten worse. Yesterday on the day of admission, his breathing started to become very labored, and felt his throat was sore. Patient was very weak and could not ambulate on his own. Patient's lungs were clear. EKG shows sinus tachycardia. Vital signs at the scene was blood pressure 138/86 pulse rate 106, respiration 24 saturation 100%. Patient tells me that yesterday he went to a family reunion in [facility] where he stayed from 12 noon to 3 PM. He wanted to leave for home early as he was feeling some shortness of breath and difficulty breathing. He started throwing up at home. He does have chronic intermittent diarrhea related to Crohn's disease, therefore is not unusual for him. He does get diarrhea every few days. Because of not feeling well, and nausea vomiting, patient's called the ambulance and he was brought to the hospital. Patient states that last night he had hard time focusing. He just felt as if he wants to go back to sleep. Patient states that he is on memory disturbance going on for 3 months, getting worse particularly in the last 2-3 days. He feels very frustrated. Patient states that he suffered from "brain bleed in 2013". He was treated at [facility]. He is noticing real hard time remembering stuff, medical history or things that have happened. He denies any problems with remembers name of friends and family. Does not get lost. Blood test shows normal WBC hemoglobin 10.9, elevated MCV 101.9, platelets 165. PT/PTT normal. VBG with pH 7.30, pCO2 35 and HCO3 17. Sodium normal, potassium 2.8, BUN 36, creatinine 2.89. Hemoglobin A1c 8.6. Hepatic panel normal, troponin negative. Blood alcohol level negative. Influenza screen and coronavirus PCR negative. Lactate elevated 3.1. ABG shows pH of 7.34, pCO2 29 and oxygen saturation 54 and saturation 82.6. UA is negative for infection. Patient's last hemoglobin A1c 8.6 on 12/07/2021. B12 <150 on 08/29/2021. Patient has history of diabetes for 4 years, hypertension. Patient currently on Keppra 500 mg daily in the morning and 1000 mg at bedtime, albuterol, insulin, Lipitor 20 mg, nortriptyline 25 mg 3 times a day, omeprazole, baclofen 20 mg twice a day. And Cimzia 400 mg subcu every 28 days. Patient says that he used to drink when he was in [place]. None since then. He smoked 1-1/2 pack per day for 35 years, quit smoking in 2006 at age 49. Review of Systems Constitutional: Denies chills, Denies fever Eyes: denies pain, denies loss of vision Ears, nose, mouth and throat: Denies headache, Denies sore throat Cardiovascular: Reports shortness of breath, Denies chest pain, Denies palpitations Respiratory: Denies cough Gastrointestinal: Reports as per HPI Genitourinary: Denies dysuria, Denies incontinence Musculoskeletal: Denies myalgias Integumentary: Denies pruritus, Denies rash Neurological: Reports as per HPI Psychiatric: Denies anxiety, Denies depression Endocrine: Denies fatigue, Denies weight change Hematologic/Lymphatic: Denies easy bleeding Past Medical History Past Medical History: Asthma, CVA/TIA, Diabetes Mellitus, Deep Vein Thrombosis (DVT), GERD/Reflux, Osteoarthritis (OA), Skin Disorder Additional Past Medical History / Comment(s): HX OF KIDNEY STONES, CROHNS DISEASE, HX OF BLOOD CLOT RT ARM AND BEHIND RT KNEE, TIA/seizure/brain bleed 08/2016, see Dr Wright H&P, "spots of dry skin", hx anemia, september 2018 stone removed L kidney History of Any Multi-Drug Resistant Organisms: MRSA Date of last positivie culture/infection: 2006 MDRO Source:: nose Past Surgical History: Appendectomy, Back Surgery, Bowel Resection, Ch olecystectomy, Heart Catheterization, Prostate Surgery Additional Past Surgical History / Comment(s): BOWEL RESECTION X 5, SPINAL SURGERIES X3, LEFT LOBECTOMY. lithotripsy, TURP, neck fusion. Past Anesthesia/Blood Transfusion Reactions: No Reported Reaction Past Psychological History: No Psychological Hx Reported Smoking Status: Former smoker Past Alcohol Use History: None Reported Past Drug Use History: None Reported - Past Family History Mother Family Medical History: Deep Vein Thrombosis (DVT) Medications and Allergies Home Medications Medication Instructions Recorded Confirmed Type levETIRAcetam [Keppra] 500 mg PO DAILY 02/22/17 12/07/21 History levETIRAcetam [Keppra] 1,000 mg PO HS 03/10/17 12/07/21 History Albuterol Sulfate [Albuterol 2 puff INHALATION RT-Q4H PRN 01/21/20 12/07/21 History Sulfate Hfa] Insulin Lispro [humaLOG Kwikpen] See Protocol SQ AC-TID 01/21/20 12/07/21 History Budesonide/Formoterol Fumarate 2 puff INHALATION RT-BID 05/08/20 12/07/21 History [Symbicort 160-4.5 Mcg Inhaler] Atorvastatin [Lipitor] 20 mg PO DAILY 12/01/20 12/07/21 History Certolizumab Pegol [Cimzia] 400 mg SQ Q28D 07/17/21 12/07/21 History Insulin Glargine,Hum.rec.anlog 6 unit SQ HS 07/17/21 12/07/21 History [Lantus Solostar Pen] Tiotropium [place] [Spiriva] 1 cap INHALATION RT-DAILY 07/17/21 12/07/21 History Baclofen [Lioresal] 20 mg PO BID 10/08/21 12/07/21 History Budesonide [Entocort EC] 9 mg PO DAILY 10/08/21 12/07/21 History Nortriptyline [Pamelor] 25 mg PO TID 10/08/21 12/07/21 History Omeprazole 20 mg PO DAILY 10/08/21 12/07/21 History Lidocaine-Prilocaine Cream [Emla 1 applic TOPICAL Q28D PRN 12/07/21 12/07/21 History Cream 2.5%/2.5%] Allergies Allergy/AdvReac Type Severity Reaction Status Date / Time aspirin Allergy Anaphylaxis Verified 12/07/21 21:20 penicillin G Allergy Rash/Hives Verified 12/07/21 21:20 venom-wasp [Wasp Venom] Allergy Anaphylaxis Verified 12/07/21 21:20 nalbuphine HCl [From Nubain] AdvReac Vomiting Verified 12/07/21 21:20 ondansetron HCl [From Zofran] AdvReac severe Verified 12/07/21 21:20 vomiting Physical Examination - Vital Signs Vital Signs: Vital Signs Temp Pulse Pulse Pulse Resp BP BP 12/08/21 08:43 70 12/08/21 08:33 72 12/08/21 06:13 24 12/08/21 05:17 97.5 F L 74 24 120/64 12/08/21 02:00 97.5 F L 74 24 120/64 12/07/21 23:50 98.1 F 225 H 40 H 133/75 12/07/21 23:34 98.2 F 86 23 118/82 12/07/21 22:00 82 24 12/07/21 21:23 88 12/07/21 21:17 88 12/07/21 21:04 98.0 F 95 24 116/78 12/07/21 20:03 102 H 34 H 12/07/21 19:45 98.1 F 101 H 34 H 131/90 Pulse Ox 12/08/21 08:43 12/08/21 08:33 99 12/08/21 06:13 12/08/21 05:17 99 12/08/21 02:00 99 12/07/21 23:50 68 L 12/07/21 23:34 98 12/07/21 22:00 97 12/07/21 21:23 12/07/21 21:17 12/07/21 21:04 98 12/07/21 20:03 12/07/21 19:45 99 Intake and Output 12/07/21 12/08/21 12/08/21 22:59 06:59 14:59 Intake Total 590 Output Total 2 Balance 590 -2 Intake: Oral 590 Output: Urine 1 Stool 1 Other: Voiding Method Bedside Commode # Voids 1 # Bowel Movements 0 Weight 88.904 kg Patient is an elderly male, very pleasant, in no acute distress. Patient is alert awake oriented to time place and person. Patient knows it is November 2021 and that it is Wednesday, and he is in [facility] and he knows name of the current president. Speech and language functions are normal. Patient can name and repeat very well. No aphasia or dysarthria. Attention, concentration and fund of knowledge is adequate. On cranial nerve examination, pupils are equal, round and reacting to light, visual sood are full on confrontation, with no neglect on double simultaneous stimulation. Patient has a lazy eye since . He required surgery on the right eye in his childhood. His right eye has exotropia. When looking at the examiner, it appears that he is looking of the left side of the examiner. Otherwise extraocular muscles are intact with no nystagmus. Face is symmetric, tongue protrudes to the midline. Palatal elevation and sensation normal, hearing slightly decreased and shoulder shrug normal, facial sensation normal. On muscle strength testing, there is left pronation, but no drift. His strength is normal in arms and legs distally and proximally. Deep tendon reflexes are symmetric biceps 1, brachioradialis trace, knee trace to 1, ankles 0 and plantars downgoing. Sensory to touch is equal with no neglect on double simultaneous stimulation. Cerebellar function showed no ataxia for hqjedv-[id number] testing. No dysdiadochokinesia. No ataxia for oqpv-[id number] testing on either side. Tone and bulk of muscles normal. Gait deferred.. On general examination, there is no carotid bruit or murmur, S1-S2 audible. Chest is clear on consultation. Abdomen is soft nontender. No organomegaly, bowel sounds present. Peripheral pulses are present. No edema. Results - Laboratory Findings CBC and BMP: 12/08/21 05:21 12/08/21 01:20 Abnormal Lab Findings: Abnormal Labs 12/07/21 12/07/21 12/07/21 20:20 20:20 20:20 WBC RBC 3.15 L Hgb 10.9 L D Hct 32.0 L MCV 101.6 H RDW 16.3 H Plt Count Lymphocytes # ABG pH ABG pCO2 ABG pO2 ABG HCO3 ABG Total CO2 ABG O2 Saturation ABG Hematocrit VBG pH VBG pCO2 VBG HCO3 Hemoglobin Sodium Potassium 2.8 L Chloride Carbon Dioxide 13 L BUN 36 H Creatinine 2.89 H Glucose 213 H POC Glucose (mg/dL) Hemoglobin A1c 8.6 H Plasma Lactic Acid Jose Miguel Calcium Magnesium 1.0 L Total Bilirubin 1.4 H Alkaline Phosphatase 131 H Total Protein 8.4 H Urine Protein Urine Glucose (UA) Urine Ketones Urine Blood Urine RBC Amorphous Sediment Hyaline Casts Urine Mucus 12/07/21 12/07/21 12/07/21 23:13 23:14 23:15 WBC RBC Hgb Hct MCV RDW Plt Count Lymphocytes # ABG pH ABG pCO2 ABG pO2 ABG HCO3 ABG Total CO2 ABG O2 Saturation ABG Hematocrit VBG pH 7.30 L VBG pCO2 35 L VBG HCO3 17 L Hemoglobin Sodium Potassium 2.8 L Chloride Carbon Dioxide 15 L BUN 37 H Creatinine 2.79 H Glucose 232 H POC Glucose (mg/dL) Hemoglobin A1c Plasma Lactic Acid Jose Miguel 3.1 H* Calcium Magnesium 1.2 L Total Bilirubin Alkaline Phosphatase Total Protein Urine Protein Urine Glucose (UA) Urine Ketones Urine Blood Urine RBC Amorphous Sediment Hyaline Casts Urine Mucus 12/08/21 12/08/21 12/08/21 00:31 00:46 01:05 WBC RBC 2.83 L Hgb 9.8 L Hct 28.8 L MCV 101.9 H RDW 15.7 H Plt Count 101 L Lymphocytes # 0.6 L ABG pH 7.34 L ABG pCO2 29 L ABG pO2 54 L* ABG HCO3 16 L ABG Total CO2 17 L ABG O2 Saturation 82.6 L ABG Hematocrit 33 L VBG pH VBG pCO2 VBG HCO3 Hemoglobin 10.7 L Sodium Potassium Chloride Carbon Dioxide BUN Creatinine Glucose POC Glucose (mg/dL) 260 H Hemoglobin A1c Plasma Lactic Acid Jose Miguel Calcium Magnesium Total Bilirubin Alkaline Phosphatase Total Protein Urine Protein Urine Glucose (UA) Urine Ketones Urine Blood Urine RBC Amorphous Sediment Hyaline Casts Urine Mucus 12/08/21 12/08/21 12/08/21 01:20 04:02 05:21 WBC 3.4 L RBC 2.82 L Hgb 9.6 L Hct 28.8 L MCV 102.0 H RDW 15.7 H Plt Count 111 L Lymphocytes # 0.6 L ABG pH ABG pCO2 ABG pO2 ABG HCO3 ABG Total CO2 ABG O2 Saturation ABG Hematocrit VBG pH VBG pCO2 VBG HCO3 Hemoglobin Sodium 135 L Potassium 3.4 L Chloride 108 H Carbon Dioxide 12 L BUN 35 H Creatinine 2.16 H Glucose 248 H POC Glucose (mg/dL) Hemoglobin A1c Plasma Lactic Acid Jose Miguel Calcium 7.2 L Magnesium Total Bilirubin Alkaline Phosphatase Total Protein Urine Protein 1+ H Urine Glucose (UA) Trace H Urine Ketones Trace H Urine Blood Large H Urine RBC 173 H Amorphous Sediment Rare H Hyaline Casts 145 H Urine Mucus Rare H 12/08/21 07:04 WBC RBC Hgb Hct MCV RDW Plt Count Lymphocytes # ABG pH ABG pCO2 ABG pO2 ABG HCO3 ABG Total CO2 ABG O2 Saturation ABG Hematocrit VBG pH VBG pCO2 VBG HCO3 Hemoglobin Sodium Potassium Chloride Carbon Dioxide BUN Creatinine Glucose POC Glucose (mg/dL) 292 H Hemoglobin A1c Plasma Lactic Acid Jose Miguel Calcium Magnesium Total Bilirubin Alkaline Phosphatase Total Protein Urine Protein Urine Glucose (UA) Urine Ketones Urine Blood Urine RBC Amorphous Sediment Hyaline Casts Urine Mucus Assessment and Plan Assessment: * AMS, probable due to metabolic encepalopathy * Acute kidney injury * Lactic acidosis, respiratory difficulty * B12 deficiency * Anemia * Diabetes Plan: * Patient's altered mental status is likely due to metabolic encephalopathy. Patient has acute kidney injury, also has breathing difficulty. Treatment of medical conditions as per IM. * Patient had history of B12 deficiency. Currently not on B12. We will recheck B12, folate and methylmalonic acid. * Neurology will follow clinically. B12 <150, folate > 120. Patient will be started on B12 replacement. Time with Patient: Greater than 30
[2021-12-09 09:10] LABS: Anisocytosis Slight; HCT 25.1 % (39.0-53.0); HGB 8.7 gm/dL (13.0-17.5); MCH 36.3 pg (25.0-35.0); MCHC 34.4 g/dL (31.0-37.0); MCV 105.4 fL (80.0-100.0); Macrocytosis Moderate; Mean Platelet Volume 8.8; Platelet Count 136 k/uL (150-450); RBC 2.38 m/uL (4.30-5.90); RDW 16.8 % (11.5-15.5); WBC 4.2 k/uL (3.8-10.6)
[2021-12-09 09:29] LABS: African American GFR (CKD) >90 (>60 ml/min/1.73 sqM); Anion Gap 10 mmol/L; Blood Urea Nitrogen 27 mg/dL (9-20); Calcium 7.2 mg/dL (8.4-10.2); Carbon Dioxide 17 mmol/L (22-30); Chloride 108 mmol/L (98-107); Glucose 230 mg/dL (74-99); Non-African American GFR(CKD) 90 (>60 ml/min/1.73 sqM); Sodium 135 mmol/L (137-145)
[2021-12-09 09:33] LABS: Magnesium 1.5 mg/dL (1.6-2.3); Potassium 4.8 mmol/L (3.5-5.1)
[2021-12-09] MEDS: CYANOCOBALAMIN 1,000 MCG/ML 1 ML VIAL IM SCH (09:33)
[2021-12-09] MEDS: MAGNESIUM SULFATE-D5W PMX 1 GM in DEXTROSE/WATER 1 100ML.BAG IVPB SCH ×4 (10:48→15:09)
[2021-12-09 11:04] LABS: Glucose,Whole Blood 156 mg/dL (70-110)
--- NOTE | 2021-12-09 16:00 | P.PN ---
Subjective Progress Note Date: 12/09/21 Patient was seen and examined. No acute events overnight. Currently on 4L NC maintaining O2 saturation > 92%. Patient reports significant improvement in his breathing. He denies any confusion. Denies any chest pain or palpitations. States that he is almost back to baseline. General: non toxic, no distress, appears at stated age Derm: warm, dry Head: atraumatic, normocephalic, symmetric Eyes: EOMI, no lid lag, anicteric sclera Mouth: no lip lesion, mucus membranes moist Cardiovascular: S1S2 reg, no murmur Lungs: Decreased breath sounds bilateral, no rhonchi, no rales , no accessory muscle use Ext: no gross muscle atrophy, no edema, no contractures Neuro: no focal neuro deficits Psych: Alert, oriented, appropriate affect Acute hypoxic respiratory failure, suspected secondary to acute COPD e xacerbation -Continue with DuoNeb's -Solu-Medrol switched to Prednisone -Case discussed with nursing, attempt to wean oxygen today in anticipation for discharge tomorrow Hypomagnesemia -Replace and monitor Metabolic encephalopathy -Resolved, patient back to baseline -Neurochecks -Fall precautions -Neurology on board -Keppra levels within normal limits -Serum alcohol negative -CT brain negative for acute pathology Low vitamin B-12 -Replace Acute kidney injury, suspected secondary to poor oral intake -DC IVF and encourage hydration by mouth -Status post 2 L normal saline bolus -Avoid nephrotoxins -Repeat BMP tomorrow morning Chronic conditions: Type II DM, COPD, hyperlipidemia, seizure disorder -Continue with home meds -Insulin sliding scale and blood glucose monitoring DVT prophylaxis -Heparin subq The patient is admitted with an anticipated greater than 2 midnight stay for evaluation of AMS CODE STATUS: Full Code Discussed with: Patient Anticipated discharge date: 1-2 days Objective - Vital Signs Vital signs: Vital Signs Temp 97.6 F 12/09/21 11:04 Pulse 82 12/09/21 15:31 Resp 18 12/09/21 11:04 BP 110/63 12/09/21 11:04 Pulse Ox 99 12/09/21 15:19 FiO2 Intake & Output 12/08/21 12/09/21 12/09/21 18:59 06:59 18:59 Intake Total 500 Output Total 2 0 Balance -2 500 Intake: Oral 500 Output: Urine 1 Stool 1 0 Other: Voiding Method Bedside Commode Bedside Commode Bedside Commode # Voids 2 2 - Labs CBC & Chem 7: 12/09/21 08:41 12/09/21 08:41 Labs: Abnormal Lab Results - Last 24 Hours (Table) 12/07/21 12/08/21 12/08/21 Range/Units 20:20 17:04 20:41 RBC (4.30-5.90) m/uL Hgb (13.0-17.5) gm/dL Hct (39.0-53.0) % MCV (80.0-100.0) fL MCH (25.0-35.0) pg RDW (11.5-15.5) % Plt Count (150-450) k/uL Sodium (137-145) mmol/L Chloride (98-107) mmol/L Carbon Dioxide (22-30) mmol/L BUN (9-20) mg/dL Glucose (74-99) mg/dL POC Glucose (mg/dL) 332 H 283 H (70-110) mg/dL Calcium (8.4-10.2) mg/dL Magnesium (1.6-2.3) mg/dL Vitamin B12 <150.0 L (200.0-944.0) pg/mL 12/09/21 12/09/21 12/09/21 Range/Units 07:06 08:41 08:41 RBC 2.38 L (4.30-5.90) m/uL Hgb 8.7 L (13.0-17.5) gm/dL Hct 25.1 L (39.0-53.0) % MCV 105.4 H (80.0-100.0) fL MCH 36.3 H (25.0-35.0) pg RDW 16.8 H (11.5-15.5) % Plt Count 136 L (150-450) k/uL Sodium 135 L (137-145) mmol/L Chloride 108 H (98-107) mmol/L Carbon Dioxide 17 L (22-30) mmol/L BUN 27 H (9-20) mg/dL Glucose 230 H (74-99) mg/dL POC Glucose (mg/dL) 301 H (70-110) mg/dL Calcium 7.2 L (8.4-10.2) mg/dL Magnesium 1.5 L (1.6-2.3) mg/dL Vitamin B12 (200.0-944.0) pg/mL 12/09/21 Range/Units 11:02 RBC (4.30-5.90) m/uL Hgb (13.0-17.5) gm/dL Hct (39.0-53.0) % MCV (80.0-100.0) fL MCH (25.0-35.0) pg RDW (11.5-15.5) % Plt Count (150-450) k/uL Sodium (137-145) mmol/L Chloride (98-107) mmol/L Carbon Dioxide (22-30) mmol/L BUN (9-20) mg/dL Glucose (74-99) mg/dL POC Glucose (mg/dL) 156 H (70-110) mg/dL Calcium (8.4-10.2) mg/dL Magnesium (1.6-2.3) mg/dL Vitamin B12 (200.0-944.0) pg/mL Microbiology - Last 24 Hours (Table) 12/07/21 20:16 Blood Culture - Preliminary Blood No Growth after 24 hours 12/07/21 20:26 Blood Culture - Preliminary Blood No Growth after 24 hours
[2021-12-09 17:32] LABS: Glucose,Whole Blood 435 mg/dL (70-110)
[2021-12-09 17:54] VITALS: TEMP 97.4
[2021-12-09 20:25] LABS: Glucose,Whole Blood 388 mg/dL (70-110)
[2021-12-09] MEDS: INSULIN DETEMIR (LEVEMIR) 100 UNIT/ML SYR SQ SCH (21:06)
--- NOTE | 2021-12-09 22:45 | P.PN ---
Subjective Progress Note Date: 12/09/21 Patient was seen for follow-up. Patient denies any new neurological symptoms. Patient states he is feeling better. Objective - Vital Signs Vital signs: Vital Signs Temp 97.4 F L 12/09/21 17:23 Pulse 77 12/09/21 17:23 Resp 17 12/09/21 17:23 BP 107/56 12/09/21 17:23 Pulse Ox 99 12/09/21 17:23 FiO2 Intake & Output 12/08/21 12/09/21 12/09/21 18:59 06:59 18:59 Intake Total 500 400 Output Total 2 0 Balance -2 500 400 Intake: Intake, IV Titration 400 Amount Magnesium Sulfate-D5w Pmx 400 1 gm In Dextrose/Water 1 100ml.bag @ 100 mls/hr IVPB Q1H MONA Rx#: [id number] Oral 500 Output: Urine 1 Stool 1 0 Other: Voiding Method Bedside Commode Bedside Commode Bedside Commode # Voids 2 2 2 - Exam Patient's mental status, speech and language functions are normal. Muscle st rength is normal. Examination is unchanged. - Labs CBC & Chem 7: 12/10/21 05:01 12/10/21 05:01 Labs: Abnormal Lab Results - Last 24 Hours (Table) 12/07/21 12/08/21 12/09/21 Range/Units 20:20 20:41 07:06 RBC (4.30-5.90) m/uL Hgb (13.0-17.5) gm/dL Hct (39.0-53.0) % MCV (80.0-100.0) fL MCH (25.0-35.0) pg RDW (11.5-15.5) % Plt Count (150-450) k/uL Sodium (137-145) mmol/L Chloride (98-107) mmol/L Carbon Dioxide (22-30) mmol/L BUN (9-20) mg/dL Glucose (74-99) mg/dL POC Glucose (mg/dL) 283 H 301 H (70-110) mg/dL Calcium (8.4-10.2) mg/dL Magnesium (1.6-2.3) mg/dL Vitamin B12 <150.0 L (200.0-944.0) pg/mL 12/09/21 12/09/2122 Range/Units 08:41 08:41 11:02 RBC 2.38 L (4.30-5.90) m/uL Hgb 8.7 L (13.0-17.5) gm/dL Hct 25.1 L (39.0-53.0) % MCV 105.4 H (80.0-100.0) fL MCH 36.3 H (25.0-35.0) pg RDW 16.8 H (11.5-15.5) % Plt Count 136 L (150-450) k/uL Sodium 135 L (137-145) mmol/L Chloride 108 H (98-107) mmol/L Carbon Dioxide 17 L (22-30) mmol/L BUN 27 H (9-20) mg/dL Glucose 230 H (74-99) mg/dL POC Glucose (mg/dL) 156 H (70-110) mg/dL Calcium 7.2 L (8.4-10.2) mg/dL Magnesium 1.5 L (1.6-2.3) mg/dL Vitamin B12 (200.0-944.0) pg/mL 12/09/21 Range/Units 17:21 RBC (4.30-5.90) m/uL Hgb (13.0-17.5) gm/dL Hct (39.0-53.0) % MCV (80.0-100.0) fL MCH (25.0-35.0) pg RDW (11.5-15.5) % Plt Count (150-450) k/uL Sodium (137-145) mmol/L Chloride (98-107) mmol/L Carbon Dioxide (22-30) mmol/L BUN (9-20) mg/dL Glucose (74-99) mg/dL POC Glucose (mg/dL) 435 H (70-110) mg/dL Calcium (8.4-10.2) mg/dL Magnesium (1.6-2.3) mg/dL Vitamin B12 (200.0-944.0) pg/mL Microbiology - Last 24 Hours (Table) 12/07/21 20:16 Blood Culture - Preliminary Blood No Growth after 24 hours 12/07/21 20:26 Blood Culture - Preliminary Blood No Growth after 24 hours Assessment and Plan Assessment: * AMS, probable due to metabolic encepalopathy * Acute kidney injury * Lactic acidosis, respiratory difficulty * B12 deficiency * Anemia * Diabetes Plan: * Patient's altered mental status is likely due to metabolic encephalopathy. Patient has acute kidney injury, also has breathing difficulty. Treatment of medical conditions as per IM. * B12 <150, folate >20. Methylmalonic acid pending. * Recommend B12 injections 1000 g IM or subcutaneous daily for 7 days, then weekly for 4 weeks and then twice a month. * Neurologically clear. We will sign off. Please reconsult neurology if any other concerns.
[2021-12-10 01:22] LABS: Urine Alcohol Negative (Negative); Urine Barbiturate Negative (Negative); Urine Cocaine Negative (Negative); Urine Methadone Negative (Negative); Urine Opiates Negative (Negative); Urine Phencyclidine Negative (Negative)
[2021-12-10 07:17] LABS: Glucose,Whole Blood 184 mg/dL (70-110)
[2021-12-10] MEDS: NON FORMULARY DRUG (Budesonide [Entocort Ec] 3 MG Capdr...Er) PO SCH (07:29)
[2021-12-10 07:39] VITALS: RESP 15
[2021-12-10] MEDS: HEPARIN SODIUM,PORCINE/PF 5,000 UNIT/0.5 ML SYRINGE SQ SCH (07:46)
[2021-12-10] MEDS: INSULIN ASPART (NovoLOG) 100 UNIT/ML VIAL SQ SCH ×2 (07:46→12:49)
[2021-12-10] MEDS: ATORVASTATIN 20 MG TAB PO SCH (07:47)
[2021-12-10] MEDS: BACLOFEN 10 MG TAB PO SCH (07:47)
[2021-12-10] MEDS: CYANOCOBALAMIN 1,000 MCG/ML 1 ML VIAL IM SCH (07:48)
[2021-12-10] MEDS: PANTOPRAZOLE 40 MG TABLET PO SCH (07:48)
[2021-12-10] MEDS: NORTRIPTYLINE 25 MG CAP PO SCH (07:48)
[2021-12-10] MEDS: levETIRAcetam 500 MG TAB PO SCH (07:48)
[2021-12-10] MEDS: IPRATROPIUM-ALBUTEROL 3 ML NEB INHALATION SCH ×2 (08:17→10:57)
[2021-12-10] MEDS: SYMBICORT 160-4.5 MCG INHALER INHALATION SCH (08:17)
[2021-12-10] MEDS ORDERED: CERTOLIZUMAB PEGOL 400 MG/2 ML SQ SCH (09:00)
[2021-12-10] MEDS ORDERED: predniSONE 20 MG TAB PO SCH (09:00)
[2021-12-10 09:09] LABS: HCT 21.4 % (39.6-50.0); HGB 7.5 g/dL (13.0-17.0); MCH 35.2 pg (27.0-32.0); MCV 100.5 fL (80.0-97.0); Mean Platelet Volume 9.9 fL (9.5-12.2); NRBC Per 100 WBC 0.5 /100 WBCS (0.0-0.0); Platelet Count 103 X 10*3/uL (140-440); RBC 2.13 X 10*6/uL (4.40-5.60); RDW 16.1 % (11.5-14.5); WBC 3.73 X 10*3/uL (4.50-10.00)
[2021-12-10 09:14] LABS: African American GFR (CKD) 89.9 (60.0-200.0); Anion Gap 6.2 mmol/L (10.00-18.00); BUN/Creat Ratio 18.1 Ratio (12.00-20.00); Blood Urea Nitrogen 18.1 mg/dL (9.0-27.0); Calcium 7.5 mg/dL (8.7-10.3); Carbon Dioxide 24.8 mmol/L (20.0-27.5); Magnesium 2.1 mg/dL (1.5-2.4); Non-African American GFR(CKD) 77.5 (60.0-200.0)
[2021-12-10 11:00] VITALS: PULSE 80
[2021-12-10 11:56] VITALS: BP 112/57
--- NOTE | 2021-12-10 12:19 | P.DS ---
Providers Date of admission: 12/07/21 22:18 Expected date of discharge: 12/10/21 Attending physician: Rafa Sotelo MD Consults: 12/08/21 03:28 Consult Physician Urgent Consulting Provider: Stveen Ballard Consult Reason/Comments: AMS Do you want consulting provider notified?: Yes Primary care physician: Kahlil Augustine MD Hospital Course: The patient is a 66-year-old male with a PMH of seizure disorder, type II DM, COPD, hyperlipidemia who presented to the emergency room with complaints of shortness of breath and fatigue. Before the patient could be seen, he had been moved to the medicine floor where an A team was subsequently activated. The patient was noted to be confused and hypoxic. The patient's vital signs however quickly normalized with supplemental oxygen. Upon arrival at the scene, the patient's BP was 133/75, SpO2 95% on 10 L nasal cannula oxygen, pulse 92, respiratory rate 35, and temperature 98.1F. The patient stated that he has been feeling fatigued over the past few days and has been experiencing nausea with episodes of vomiting. He also reported mild abdominal discomfort, unable to quantify. In the emergency room however, the patient did endorse a brief episode of chest discomfort lasting for around 10 minutes, substernal. He also reported a nonproductive cough and was concerned that his COPD may have been acting up.chest x-ray in the emergency room was unremarkable with repeat x-ray also unremarkable. EKG revealed sinus rhythm at 88 bpm with Q waves in leads V4 to V6. Laboratory evaluation was remarkable for VBG showing pH 7.34 and pCO2 29, sodium 138, potassium 2.8, CO2 15, lactic acid 3.1, BUN 37, creatinine 2.79, magnesium 1.0, and troponin less than 0.012. D-dimer was subsequently obtained and was 0.44. Patient's altered mentation resolved with correction of his hypoxia. CT brain was negative for acute pathology. Serum alcohol level was negative. Keppra levels were within normal limits. Neurology followed the patient during his hospitalization. His acute kidney injury resolved with IV hydration. He did have some cramping of his fingers on both of his hands which resolved with correction of his hypomagnesemia. He is advised to follow-up with his PCP to obtain B12 1000 micrograms IM or subcutaneous daily for 7 days followed by weekly for 4 weeks and then twice a month. With regard to his COPD exacerbation, he was given bronchodilators along with Solu-Medrol. His oxygen was weaned off to room air on the day of discharge. He reported having his inhalers at home and did not need any refills. Inhalers included Symbicort, tiotropium, albuterol as needed. He also reported having a nebulizer machine with DuoNeb treatments at home. He was discharged home with Medrol Dosepak. Patient is advised to follow-up with his PCP within 1-2 days of discharge. He is advised to follow-up with his tin can feeder Dr. Bateman within 1 week of discharge. Patient verbalized understanding of the plan. General: non toxic, no distress, appears at stated age Derm: warm, dry Head: atraumatic, normocephalic, symmetric Eyes: EOMI, no lid lag, anicteric sclera Mouth: no lip lesion, mucus membranes moist Cardiovascular: S1S2 reg, no murmur Lungs: Decreased breath sounds bilateral, no rhonchi, no rales , no accessory muscle use Ext: no gross muscle atrophy, no edema, no contractures Neuro: no focal neuro deficits Psych: Alert, oriented, appropriate affect Discharge diagnosis: Acute hypoxic respiratory failure, suspected secondary to acute COPD exacerbation Magnesium Metabolic encephalopathy, resolved Low vitamin B12 Acute kidney injury, resolved Chronic conditions: Type II DM, COPD, hyperlipidemia, seizure disorder This complex discharge took about 37 minutes to complete. Pertinent Studies: Chest x-ray CT brain Patient Condition at Discharge: Stable Plan - Discharge Summary New Discharge Prescriptions: New Ipratropium-Albuterol Nebulize [Duoneb 0.5 mg-3 mg/3 ml Soln] 3 ml INHALATION RT-QID PRN #120 each PRN Reason: Shortness Of Breath Cyanocobalamin [Vitamin B-12 Injection] 1,000 mcg IM DAILY each methylPREDNISolone Dose Pack [Medrol Dose Pack] 4 mg PO DIRECTED #1 packet Continue levETIRAcetam [Keppra] 500 mg PO DAILY levETIRAcetam [Keppra] 1,000 mg PO HS Albuterol Sulfate [Albuterol Sulfate Hfa] 2 puff INHALATION RT-Q4H PRN PRN Reason: Shortness Of Breath Insulin Lispro [humaLOG Kwikpen] See Protocol SQ AC-TID Budesonide/Formoterol Fumarate [Symbicort 160-4.5 Mcg Inhaler] 2 puff INHALATION RT-BID Atorvastatin [Lipitor] 20 mg PO DAILY Tiotropium [place] [Spiriva] 1 cap INHALATION RT-DAILY Insulin Glargine,Hum.rec.anlog [Lantus Solostar Pen] 6 unit SQ HS Certolizumab Pegol [Cimzia] 400 mg SQ Q28D Nortriptyline [Pamelor] 25 mg PO TID Budesonide [Entocort EC] 9 mg PO DAILY Omeprazole 20 mg PO DAILY Baclofen [Lioresal] 20 mg PO BID Lidocaine-Prilocaine Cream [Emla Cream 2.5%/2.5%] 1 applic TOPICAL Q28D PRN PRN Reason: prior to Cimzia injection Discharge Medication List levETIRAcetam [Keppra] 500 mg PO DAILY 02/22/17 [History] levETIRAcetam [Keppra] 1,000 mg PO HS 03/10/17 [History] Albuterol Sulfate [Albuterol Sulfate Hfa] 2 puff INHALATION RT-Q4H PRN 01/21/20 [History] Insulin Lispro [humaLOG Kwikpen] See Protocol SQ AC-TID 01/21/20 [History] Budesonide/Formoterol Fumarate [Symbicort 160-4.5 Mcg Inhaler] 2 puff INHALATION RT-BID 05/08/20 [History] Atorvastatin [Lipitor] 20 mg PO DAILY 12/01/20 [History] Certolizumab Pegol [Cimzia] 400 mg SQ Q28D 07/17/21 [History] Insulin Glargine,Hum.rec.anlog [Lantus Solostar Pen] 6 unit SQ HS 07/17/21 [History] Tiotropium [place] [Spiriva] 1 cap INHALATION RT-DAILY 07/17/21 [History] Baclofen [Lioresal] 20 mg PO BID 10/08/21 [History] Budesonide [Entocort EC] 9 mg PO DAILY 10/08/21 [History] Nortriptyline [Pamelor] 25 mg PO TID 10/08/21 [History] Omeprazole 20 mg PO DAILY 10/08/21 [History] Lidocaine-Prilocaine Cream [Emla Cream 2.5%/2.5%] 1 applic TOPICAL Q28D PRN 12/07/21 [History] Cyanocobalamin [Vitamin B-12 Injection] 1,000 mcg IM DAILY each 12/10/21 [Rx] Ipratropium-Albuterol Nebulize [Duoneb 0.5 mg-3 mg/3 ml Soln] 3 ml INHALATION RT-QID PRN #120 each 12/10/21 [Rx] methylPREDNISolone Dose Pack [Medrol Dose Pack] 4 mg PO DIRECTED #1 packet 12/10/21 [Rx] Follow up Appointment(s)/Referral(s): Tevin Qureshi MD [STAFF PHYSICIAN] - 12/25/21 1:00 pm Kahlil Augustine MD [Primary Care Provider] - 1-2 days (We tried to make this appointment and got the office voicemail please call and make follow up appintment.) Patient Instructions/Handouts: Acute Kidney Injury (DC), COPD (Chronic Obstructive Pulmonary Disease) (DC) Activity/Diet/Wound Care/Special Instructions: Diet: Regular Follow-up with your PCP within 1-2 days of discharge. Follow-up with pulmonology within 1 week of discharge. Take all medications as advised. Come back to the ED for worsening chest pain, shortness of breath, palpitations or lightheadedness. See your PCP to resume B12 injections. See your PCP for evaluation of concerns of early dementia. Discharge/Stand Alone Forms: Who Do I Call?, Community Resources, Help In The Home, Personal Felt Finishing Supervisor Discharge Disposition: HOME SELF-CARE
[2021-12-10 12:37] LABS: Glucose,Whole Blood 390 mg/dL (70-110)
== END 2021-12-10 14:06 | disposition home or self-care (01) | DRG 190 ==
LOC: EC 19:42 → 5NMEDONC 22:18
PROVIDERS: ADMIT Internal Medicine; ATTEND Internal Medicine
DX: J44.1 Chronic obstructive pulmonary disease with (acute) exacerbation (principal); G93.41 Metabolic encephalopathy; J96.01 Acute respiratory failure with hypoxia; K50.90 Crohn's disease, unspecified, without complications; N17.9 Acute kidney failure, unspecified; E87.2 Acidosis; I10 Essential (primary) hypertension; D53.9 Nutritional anemia, unspecified; E11.9 Type 2 diabetes mellitus without complications; E53.8 Deficiency of other specified B group vitamins; E78.5 Hyperlipidemia, unspecified; E83.42 Hypomagnesemia; E86.0 Dehydration; E87.6 Hypokalemia; G40.909 Epilepsy, unspecified, not intractable, without status epilepticus; Z79.51 Long term (current) use of inhaled steroids; Z79.899 Other long term (current) drug therapy; Z86.73 Personal history of transient ischemic attack (TIA), and cerebral infarction without residual deficits; J45.909 Unspecified asthma, uncomplicated; Z87.891 Personal history of nicotine dependence; Z87.442 Personal history of urinary calculi; Z98.1 Arthrodesis status; Z90.2 Acquired absence of lung [part of]; Z86.14 Personal history of Methicillin resistant Staphylococcus aureus infection; Z88.6 Allergy status to analgesic agent; Z88.0 Allergy status to penicillin; Z86.718 Personal history of other venous thrombosis and embolism
CPT/HCPCS: 36415; 36600; 70450; 71045; 71046; 80048; 80053; 80177; 80306; 80320; 81001; 82607; 82746; 82803; 82805; 83036; 83605; 83735; 83921; 84484; 85025; 85027; 85379; 85610; 85730; 87040; 87502; 87635; 93005; 94640; 94760; 96365; 96366; 96375; 99285

== ENCOUNTER 2022-03-22 15:28 | Inpatient (IN) | payer MEDICARE ==
[2022-03-22] MEDS ORDERED: HYDROcodone/APAP 5-325MG 1 EACH TAB PO STA (16:49)
[2022-03-22] MEDS ORDERED: SULFAMETHOX-TMP 800-160MG 1 EACH TAB PO STA (16:49)
--- NOTE | 2022-03-22 16:56 | ED ---
Skin/Abscess/FB HPI - General Chief complaint: Skin/Abscess/Foreign Body Stated complaint: left hand injury,swollen Time Seen by Provider: 03/22/22 16:22 Source: patient, family, RN notes reviewed Mode of arrival: ambulatory Limitations: no limitations - History of Present Illness Initial comments: This is a 66-year-old male who presents emergency department for left hand pain and swelling. States that last week he cut his left hand on a grocery cart. Over the last 2-3 days, he started to develop pain, swelling, and redness in the left hand. He feels like the pain is starting to travel up into the elbow. He denies any fevers, nausea, and vomiting. He does however have multiple medical conditions such as Crohn's disease putting him in an immunocompromised state. He is also diabetic. Unsure when his last tetanus vaccine was. Denies any fevers, chills, sore throat, cough, dyspnea, chest pain, palpitations, abdominal pain, nausea, vomiting, diarrhea, back pain, or headaches. MD complaint: rash Onset/Timin -: days(s) Tetanus Up to Date: no Location: L hand - Related Data Home Medications Medication Instructions Recorded Confirmed levETIRAcetam [Keppra] 500 mg PO DAILY 02/22/17 03/22/22 levETIRAcetam [Keppra] 1,000 mg PO HS 03/10/17 03/22/22 Albuterol Sulfate [Albuterol 2 puff INHALATION RT-Q4H PRN 01/21/20 03/22/22 Sulfate Hfa] Insulin Lispro [humaLOG Kwikpen] See Protocol SQ AC-TID 01/21/20 03/22/22 Budesonide/Formoterol Fumarate 2 puff INHALATION RT-BID 05/08/20 03/22/22 [Symbicort 160-4.5 Mcg Inhaler] Certolizumab Pegol [Cimzia] 400 mg SQ Q28D 07/17/21 03/22/22 Insulin Glargine,Hum.rec.anlog 6 unit SQ HS 07/17/21 03/22/22 [Lantus Solostar Pen] Tiotropium [place] [Spiriva] 1 cap INHALATION RT-DAILY 07/17/21 03/22/22 Baclofen [Lioresal] 20 mg PO BID 10/08/21 03/22/22 Budesonide [Entocort EC] 9 mg PO DAILY 10/08/21 03/22/22 Nortriptyline [Pamelor] 25 mg PO TID 10/08/21 03/22/22 Omeprazole 20 mg PO DAILY 10/08/21 03/22/22 Lidocaine-Prilocaine Cream [Emla 1 applic TOPICAL Q28D PRN 12/07/21 03/22/22 Cream 2.5%/2.5%] Cyanocobalamin [Vitamin B-12 1,000 mcg SQ Q14D 03/22/22 03/22/22 Injection] Rosuvastatin [Crestor] 10 mg PO DAILY 03/22/22 03/22/22 Previous Rx's Medication Instructions Recorded Ipratropium-Albuterol Nebulize 3 ml INHALATION RT-QID PRN #120 12/10/21 [Duoneb 0.5 mg-3 mg/3 ml Soln] each Allergies Allergy/AdvReac Type Severity Reaction Status Date / Time aspirin Allergy Anaphylaxis Verified 03/22/22 20:41 bee venom protein (honey bee) Allergy Anaphylaxis Verified 03/22/22 20:41 penicillin G Allergy Rash/Hives Verified 03/22/22 20:41 venom-wasp [Wasp Venom] Allergy Anaphylaxis Verified 03/22/22 20:41 nalbuphine HCl [From Nubain] AdvReac Vomiting Verified 03/22/22 20:41 ondansetron HCl [From Zofran] AdvReac severe Verified 03/22/22 20:41 vomiting Review of Systems ROS Statement: Those systems with pertinent positive or pertinent negative responses have been documented in the HPI. ROS Other: All systems not noted in ROS Statement are negative. Past Medical History Past Medical History: Asthma, CVA/TIA, Diabetes Mellitus, Deep Vein Thrombosis (DVT), GERD/Reflux, Osteoarthritis (OA), Skin Disorder Additional Past Medical History / Comment(s): HX OF KIDNEY STONES, CROHNS DISEASE, HX OF BLOOD CLOT RT ARM AND BEHIND RT KNEE, TIA/seizure/brain bleed 08/2016, see Dr Wright H&P, "spots of dry skin", hx anemia, september 2018 stone removed L kidney History of Any Multi-Drug Resistant Organisms: MRSA Date of last positivie culture/infection: 2006 MDRO Source:: nose Past Surgical History: Appendectomy, Back Surgery, Bowel Resection, Cholecystectomy, Heart Catheterization, Prostate Surgery Additional Past Surgical History / Comment(s): BOWEL RESECTION X 5, SPINAL SURGERIES X3, LEFT LOBECTOMY. lithotripsy, TURP, neck fusion. Past Anesthesia/Blood Transfusion Reactions: No Reported Reaction Past Psychological History: No Psychological Hx Reported Smoking Status: Former smoker Past Alcohol Use History: None Reported Past Drug Use History: None Reported - Past Family History Mother Family Medical History: Deep Vein Thrombosis (DVT) General Exam Limitations: no limitations General appearance: alert, in no apparent distress Head exam: Present: atraumatic, normocephalic, normal inspection Respiratory exam: Present: normal lung sounds bilaterally. Absent: respiratory distress, wheezes, rales, rhonchi, stridor Cardiovascular Exam: Present: regular rate, normal rhythm, normal heart sounds. Absent: systolic murmur, diastolic murmur, rubs, gallop, clicks Extremities exam: Present: other (Erythema, swelling, tenderness, and increased heat over the dorsal aspect of the left hand radiating proximally. 2+ radial pulses and capillary refill less than 1 second. There are healing scabs on the left hand with no purulent drainage.) Neurological exam: Present: alert, oriented X3, CN II-XII intact Psychiatric exam: Present: normal affect, normal mood Course Vital Signs 03/22/22 03/22/22 15:35 18:56 Temperature 98.0 F Pulse Rate 98 80 Respiratory 20 18 Rate Blood Pressure 149/83 145/78 O2 Sat by Pulse 99 100 Oximetry Medical Decision Making - Medical Decision Making This is a 66-year-old male who presents to the emergency department for left hand pain and swelling. Based on the recent injury, symptoms are most likely related to a cellulitis. However, given his multiple comorbidities, ultrasound of the left upper extremity was obtained to evaluate for any signs of a blood clot. X-ray of the left hand and forearm obtained as well. My interpretation reveals soft tissue swelling of the left hand with no evidence of subcutaneous gas formation or intraosseous abnormalities. US reveals no evidence of a DVT. Findings discussed with the patient and his daughter, in that this is most likely a cellulitis. Patient's tetanus status was updated. They are concerned about him going home because of his immunocompromised state. He does have Crohn's disease and is on immunosuppressive medication. His daughter also states that the redness has started to progress up the arm since being here. Lab work was obtained, there is a somewhat elevated ESR, however this appears to be chronic for the patient, especially with the Crohn's disease. There is no evidence of leukocytosis or elevated lactic acid. Procalcitonin ordered, results pending. Given the patient's immunocompromised state and tendency to fail outpatient management, will admit to medicine for IV antibiotics. Patient started on vancomycin. This case was discussed in detail with the attending ED physician. Presentation, findings, and treatment plan discussed in detail as well. - Lab Data Result diagrams: 03/22/22 18:27 03/22/22 18:27 Lab Results 03/22/22 03/22/22 03/22/22 Range/Units 18:27 18:27 18:27 WBC 6.4 (3.8-10.6) k/uL RBC 4.39 (4.30-5.90) m/uL Hgb 12.2 L (13.0-17.5) gm/dL Hct 37.2 L (39.0-53.0) % MCV 84.7 (80.0-100.0) fL MCH 27.9 (25.0-35.0) pg MCHC 32.9 (31.0-37.0) g/dL RDW 15.0 (11.5-15.5) % Plt Count 189 (150-450) k/uL MPV 7.1 Neutrophils % 51 % Lymphocytes % 35 % Monocytes % 8 % Eosinophils % 2 % Basophils % 1 % Neutrophils # 3.3 (1.3-7.7) k/uL Lymphocytes # 2.3 (1.0-4.8) k/uL Monocytes # 0.5 (0-1.0) k/uL Eosinophils # 0.1 (0-0.7) k/uL Basophils # 0.0 (0-0.2) k/uL ESR 41 H (0-15) mm/hr Sodium 139 (137-145) mmol/L Potassium 4.1 (3.5-5.1) mmol/L Chloride 105 (98-107) mmol/L Carbon Dioxide 25 (22-30) mmol/L Anion Gap 9 mmol/L BUN 12 (9-20) mg/dL Creatinine 0.65 L (0.66-1.25) mg/dL Est GFR (CKD-EPI)AfAm >90 (>60 ml/min/1.73 sqM) Est GFR (CKD-EPI)NonAf >90 (>60 ml/min/1.73 sqM) Glucose 112 H (74-99) mg/dL Plasma Lactic Acid Jose Miguel 1.2 (0.7-2.0) mmol/L Calcium 8.8 (8.4-10.2) mg/dL Total Bilirubin 0.7 (0.2-1.3) mg/dL AST 21 (17-59) U/L ALT 12 (4-49) U/L Alkaline Phosphatase 98 (38-126) U/L C-Reactive Protein 0.6 (<1.0) mg/dL Total Protein 8.0 (6.3-8.2) g/dL Albumin 4.2 (3.5-5.0) g/dL - Radiology Data Radiology results: report reviewed, image reviewed Disposition Clinical Impression: Cellulitis of left hand, Immunocompromised state Disposition: ADMITTED IP TO THIS HOSP
--- NOTE | 2022-03-22 17:12 | XR ---
Left hand. HISTORY: Pain and swelling following laceration. COMPARISON: None TECHNIQUE: 3 views left hand were obtained. These: There is no fracture, dislocation, intraosseous or intra-articular abnormality. There is no cortical disruption or periosteal reaction. The soft tissues are normal without evidence of soft tissue gas or radiopaque foreign body. IMPRESSION: No significant abnormality seen.
--- NOTE | 2022-03-22 17:13 | XR ---
Left forearm HISTORY: Pain and swelling following laceration. COMPARISON: None TECHNIQUE: 2 views of the left forearm were obtained. FINDINGS: There is no fracture, dislocation, intraosseous or intra-articular abnormality. There is no cortical disruption or periosteal reaction. There is no soft tissue gas or radiopaque foreign body. IMPRESSION: No significant abnormality seen.
--- NOTE | 2022-03-22 17:49 | US ---
EXAMINATION TYPE: US venous doppler duplex UE LT DATE OF EXAM: 03/22/2022 COMPARISON: NONE CLINICAL HISTORY: Pain and swelling. Pain and swelling. Patient does not take blood thinners. Hx of D VT in right arm. SIDE PERFORMED: Left arm Left Arm: No evidence of DVT in veins imaged at this time. Deep venous system of the left upper extremity is patent and compressible with augmentable flow throu ghout. IMPRESSION: No evidence of left upper extremity DVT.
[2022-03-22 18:37] LABS: Basophils % (A) 1 %; Eosinophils # (A) 0.1 k/uL (0-0.7); Eosinophils % (A) 2 %; HCT 37.2 % (39.0-53.0); HGB 12.2 gm/dL (13.0-17.5); Lymphocytes # (A) 2.3 k/uL (1.0-4.8); Lymphocytes % (A) 35 %; MCH 27.9 pg (25.0-35.0); MCHC 32.9 g/dL (31.0-37.0); MCV 84.7 fL (80.0-100.0); Mean Platelet Volume 7.1; Monocytes # (A) 0.5 k/uL (0-1.0); Monocytes % (A) 8 %; Neutrophils # (A) 3.3 k/uL (1.3-7.7); Neutrophils % (A) 51 %; Platelet Count 189 k/uL (150-450); RBC 4.39 m/uL (4.30-5.90); WBC 6.4 k/uL (3.8-10.6)
[2022-03-22 18:49] LABS: ALT 12 U/L (4-49); AST 21 U/L (17-59); African American GFR (CKD) >90 (>60 ml/min/1.73 sqM); Albumin 4.2 g/dL (3.5-5.0); Alkaline Phosphatase 98 U/L (38-126); Anion Gap 9 mmol/L; Blood Urea Nitrogen 12 mg/dL (9-20); C Reactive Protein 0.6 mg/dL (<1.0); Calcium 8.8 mg/dL (8.4-10.2); Carbon Dioxide 25 mmol/L (22-30); Chloride 105 mmol/L (98-107); Glucose 112 mg/dL (74-99); Non-African American GFR(CKD) >90 (>60 ml/min/1.73 sqM); Potassium 4.1 mmol/L (3.5-5.1); Sodium 139 mmol/L (137-145); Total Bilirubin 0.7 mg/dL (0.2-1.3)
[2022-03-22 19:58] LABS: Erythrocyte Sedimentation Rate 41 mm/hr (0-15)
[2022-03-22] MEDS ORDERED: NALOXONE 0.4 MG/ML 1 ML VIAL IV PRN (20:03)
[2022-03-22] MEDS ORDERED: ACETAMINOPHEN TAB 325 MG TAB PO PRN (20:03)
[2022-03-22] MEDS ORDERED: VANCOMYCIN IV PER PHARMACY 1 EACH MISC MISCELLANE PRN (20:06)
[2022-03-22] MEDS ORDERED: HYDROmorphone 0.5 MG/0.5 ML SYRINGE IVP PRN (20:08)
[2022-03-22] MEDS ORDERED: DIPH,PERTUS(ACELL)TETVAC-LF 0.5 ML VIAL IM ONE (20:10)
[2022-03-22] MEDS ORDERED: PANTOPRAZOLE 40 MG/10 ML VIAL IV SCH (20:15)
[2022-03-22] MEDS: VANCOMYCIN 1,250 MG in SODIUM CHLORIDE 0.9% 250 ML IVPB SCH (20:48)
[2022-03-22] MEDS: levETIRAcetam 500 MG TAB PO SCH ×2 (22:23→22:24)
[2022-03-22] MEDS: HYDROmorphone 1 MG/ML 1 ML SYRINGE IVP PRN (22:24)
[2022-03-22] MEDS: BACLOFEN 10 MG TAB PO SCH (22:24)
[2022-03-22] MEDS: NORTRIPTYLINE 25 MG CAP PO SCH (23:19)
[2022-03-23] MEDS: HYDROmorphone 1 MG/ML 1 ML SYRINGE IVP PRN ×6 (03:18→23:31)
[2022-03-23] MEDS: VANCOMYCIN 1,250 MG in SODIUM CHLORIDE 0.9% 250 ML IVPB SCH ×3 (04:13→20:19)
[2022-03-23 06:33] LABS: African American GFR (CKD) >90 (>60 ml/min/1.73 sqM); Non-African American GFR(CKD) >90 (>60 ml/min/1.73 sqM)
[2022-03-23] MEDS: SYMBICORT 160-4.5 MCG INHALER INHALATION SCH ×2 (07:26→21:08)
[2022-03-23] MEDS: IPRATROPIUM 0.5 MG/2.5 ML NEBU INHALATION SCH ×4 (07:26→21:08)
[2022-03-23] MEDS: ATORVASTATIN 20 MG TAB PO SCH (08:02)
[2022-03-23] MEDS: BACLOFEN 10 MG TAB PO SCH ×2 (08:02→20:18)
[2022-03-23] MEDS: PANTOPRAZOLE 40 MG TABLET PO SCH (08:02)
[2022-03-23] MEDS: NORTRIPTYLINE 25 MG CAP PO SCH ×3 (08:34→20:17)
[2022-03-23] MEDS ORDERED: ALBUTEROL HFA INHALER INHALATION PRN (11:44)
[2022-03-23] MEDS ORDERED: IPRATROPIUM-ALBUTEROL 3 ML NEB INHALATION PRN (11:44)
[2022-03-23] MEDS ORDERED: HYDROcodone/APAP 5-325MG 1 EACH TAB PO PRN (11:45)
[2022-03-23] MEDS ORDERED: CYANOCOBALAMIN 1,000 MCG/ML 1 ML VIAL SQ SCH (12:00)
[2022-03-23] MEDS: NON FORMULARY DRUG (Budesonide [Entocort Ec] 3 MG Capdr...Er) PO SCH (12:29)
[2022-03-23] MEDS: METOCLOPRAMIDE 5 MG/ML 2 ML VIAL IVP PRN (12:40)
[2022-03-23] MEDS: HEPARIN SODIUM,PORCINE/PF 5,000 UNIT/0.5 ML SYRINGE SQ SCH ×2 (12:40→20:18)
--- NOTE | 2022-03-23 13:09 | HP ---
HISTORY AND PHYSICAL CHIEF COMPLAINTS: Cellulitis and pain and swelling of the left forearm. HISTORY OF PRESENT ILLNESS: This is a 66-year-old gentleman with a past medical history of multiple medical issues, diabetes mellitus, DVT, history of MRSA, was apparently scratched by a shopping cart a week ago. The Peroxide was used because of lack of improvement. The patient came to [facility] and was admitted for evaluation and treatment. The patient also has difficulty extending the fingers and as well as the pain extending up to the elbow also. There is no history of any fever, rigors, or chills. PAST MEDICAL HISTORY: Reviewed, include MRSA, DVT, asthma, rest of the history and whole chart is reviewed. HOME MEDICATIONS: Reviewed include vitamin B2 injection, dose and rest of medications reviewed. ALLERGIES: Reviewed include aspirin. FAMILY HISTORY: Reviewed, DVT. SOCIAL HISTORY: Previous history of smoking. REVIEW OF SYSTEMS: A 14-point review is negative except as mentioned earlier. PHYSICAL EXAMINATION: VITAL SIGNS: Pulse 77, blood pressure 130/27, and respirations 16. HEENT: Conjunctivae normal. NECK: No jugular venous distention. RESPIRATIONS: Diminished at the basis. ABDOMEN: Soft, nontender. LEGS: No edema, no swelling. NERVOUS SYSTEM: No focal deficit. EXTREMITIES: Left hand forearm tenderness, erythema present in the dorsum which is extending to the fingers. Finger movement, especially extension is painful, limited and also some tenderness extending up to the forearm and as well as elbow also. SKIN: As mentioned. JOINTS: No active deformity. LABS: Reviewed. ASSESSMENT: 1. Left hand dorsa cellulitis with extension and failure of outpatient treatment. 2. Diabetes mellitus, type 2. 3. History of MRSA. 4. History of DVT. 5. Multiple medical issues. RECOMMENDATIONS: This 66-year-old gentleman presented with multiple complex medical issues, we will monitor the patient closely. I would recommend intravenous vancomycin for possible MRSA because the patient failed outpatient treatment and also recommend infectious disease evaluation and orthopedic evaluation, cultures. The venous Doppler and x-rays have been reviewed personally by me, which are showing no significant acute abnormality. Resume the home medications once they are confirmed. Monitor blood sugars closely. Prognosis guarded because of multiple complex medical issues. DVT prophylaxis. Further recommendations to follow. See orders for details. We will closely observe the patient for need for any surgical debridement. MMODL / IJN: [id number] /
--- NOTE | 2022-03-23 16:21 | CT ---
EXAMINATION TYPE: CT hand LT w con DATE OF EXAM: 03/23/2022 COMPARISON: None HISTORY: left hand dorsal abscess from cut injury x8 days ago CT DLP: 265.9 mGycm Automated exposure control for dose reduction was used. Contrast-enhanced CT of the left hand was per formed in the axial, coronal and sagittal planes. CONTRAST: Performed with IV Contrast, patient injected with 100 mL of Isovue 300. FINDINGS: There is soft tissue edema overlying the dorsum of the left hand compatible with underlying celluliti s. I do not see evidence for a drainable abscess. There is no evidence for radiopaque foreign body. I do not see evidence for osteomyelitis. No evidence for fracture. No erosive or destructive osseous c hanges seen. IMPRESSION: CELLULITIS OF THE DORSAL LEFT HAND. NO EVIDENCE FOR DRAINABLE ABSCESS. NO EVIDENCE FOR FOREIGN BODY O R FRACTURE.
--- NOTE | 2022-03-23 19:06 | P.CNOR ---
History of Present Illness - [facility] Consult date: 03/23/22 History of present illness: This patient is a 66-year-old male with a past medical history of diabetes, CVA, Crohn's disease that presented to [facility] emergency department earlier today with complaints of left hand pain and swelling. Patient states he cut his hand on a grocery store shopping cart about a week ago. He started to experience erythema and swelling over the area about 23 days ago. He states that the pain and swelling continues to get worse. He presented to the emergency department for evaluation. Patient's tetanus was updated and he was started on IV vanco. Patient was admitted to the care of internal medicine consult placed to orthopedic surgery. Dr. Park was also consulted for antibiotic management. Patient is evaluated bedside with Dr. Hernandez this evening. He is complaining of isolated left hand pain. He otherwise feels well and has no additional complaints. Vital signs stable. Patient is afebrile. Past Medical History Past Medical History: Asthma, CVA/TIA, Diabetes Mellitus, Deep Vein Thrombosis (DVT), GERD/Reflux, Osteoarthritis (OA), Skin Disorder Additional Past Medical History / Comment(s): HX OF KIDNEY STONES, CROHNS DISEASE, HX OF BLOOD CLOT RT ARM AND BEHIND RT KNEE, TIA/seizure/brain bleed 08/2016, see Dr Wright H&P, "spots of dry skin", hx anemia, september 2018 stone removed L kidney History of Any Multi-Drug Resistant Organisms: MRSA Year Discovered:: 2006 MDRO Source:: nose Past Surgical History: Appendectomy, Back Surgery, Bowel Resection, Cholecystectomy, Heart Catheterization, Prostate Surgery Additional Past Surgical History / Comment(s): BOWEL RESECTION X 5, SPINAL SURGERIES X3, LEFT LOBECTOMY. lithotripsy, TURP, neck fusion. Past Anesthesia/Blood Transfusion Reactions: No Reported Reaction Past Psychological History: No Psychological Hx Reported Smoking Status: Former smoker Past Alcohol Use History: None Reported Past Drug Use History: None Reported - Past Family History Mother Family Medical History: Deep Vein Thrombosis (DVT) Medications and Allergies Home Medications Medication Instructions Recorded Confirmed Type levETIRAcetam [Keppra] 500 mg PO DAILY 02/22/17 03/22/22 History levETIRAcetam [Keppra] 1,000 mg PO HS 03/10/17 03/22/22 History Albuterol Sulfate [Albuterol 2 puff INHALATION RT-Q4H PRN 01/21/20 03/22/22 History Sulfate Hfa] Insulin Lispro [humaLOG Kwikpen] See Protocol SQ AC-TID 01/21/20 03/22/22 History Budesonide/Formoterol Fumarate 2 puff INHALATION RT-BID 05/08/20 03/22/22 History [Symbicort 160-4.5 Mcg Inhaler] Certolizumab Pegol [Cimzia] 400 mg SQ Q28D 07/17/21 03/22/22 History Insulin Glargine,Hum.rec.anlog 6 unit SQ HS 07/17/21 03/22/22 History [Lantus Solostar Pen] Tiotropium [place] [Spiriva] 1 cap INHALATION RT-DAILY 07/17/21 03/22/22 History Baclofen [Lioresal] 20 mg PO BID 10/08/21 03/22/22 History Budesonide [Entocort EC] 9 mg PO DAILY 10/08/21 03/22/22 History Nortriptyline [Pamelor] 25 mg PO TID 10/08/21 03/22/22 History Omeprazole 20 mg PO DAILY 10/08/21 03/22/22 History Lidocaine-Prilocaine Cream [Emla 1 applic TOPICAL Q28D PRN 12/07/21 03/22/22 History Cream 2.5%/2.5%] Ipratropium-Albuterol Nebulize 3 ml INHALATION RT-QID PRN #120 12/10/21 03/22/22 Rx [Duoneb 0.5 mg-3 mg/3 ml Soln] each Cyanocobalamin [Vitamin B-12 1,000 mcg SQ Q14D 03/22/22 03/22/22 History Injection] Rosuvastatin [Crestor] 10 mg PO DAILY 03/22/22 03/22/22 History Allergies Allergy/AdvReac Type Severity Reaction Status Date / Time aspirin Allergy Anaphylaxis Verified 03/22/22 20:41 bee venom protein (honey bee) Allergy Anaphylaxis Verified 03/22/22 20:41 penicillin G Allergy Rash/Hives Verified 03/22/22 20:41 venom-wasp [Wasp Venom] Allergy Anaphylaxis Verified 03/22/22 20:41 nalbuphine HCl [From Nubain] AdvReac Vomiting Verified 03/22/22 20:41 ondansetron HCl [From Zofran] AdvReac severe Verified 03/22/22 20:41 vomiting Physical Examination On examination, patient is sitting up on the gurney in no apparent distress. He is alert and orientated x3. His head appears normocephalic and atraumatic. His breathing is nonlabored. A focused examination of the left hand is conducted. On inspection of the left hand, there is a small healing laceration with surrounding erythema and diffuse swelling. No fluctuance. No drainage. No pain with PROM of the fingers or wrist. Motor and sensory function intact left upper extremity. The left hand warm and well perfused. Results Left hand x-ray and CT left hand reviewed. No abscess identified. - Labs Labs: Abnormal Lab Results - Last 24 Hours (Table) 03/22/22 03/22/22 Range/Units 18:27 18:27 Hgb 12.2 L (13.0-17.5) gm/dL Hct 37.2 L (39.0-53.0) % ESR 41 H (0-15) mm/hr Creatinine 0.65 L (0.66-1.25) mg/dL Glucose 112 H (74-99) mg/dL H & H 03/22/22 Range/Units 18:27 Hgb 12.2 L (13.0-17.5) gm/dL Hct 37.2 L (39.0-53.0) % Result Diagrams: 03/22/22 18:27 03/23/22 05:32 Assessment and Plan Assessment: Left hand cellulitis Plan: - Clinical and imaging findings discussed with the patient. Patient was also examined by Dr. Hernandez today. No surgical intervention recommended at this time. Recommend IV antibiotics and local wound care under the discretion of infectious disease. We will follow patient as he remains inpatient. Please contact with questions or concerns.
[2022-03-23] MEDS: INSULIN DETEMIR (LEVEMIR) 100 UNIT/ML SYR SQ SCH (20:18)
[2022-03-23] MEDS: levETIRAcetam 500 MG TAB PO SCH (20:18)
[2022-03-23 20:22] LABS: Glucose,Whole Blood 152 mg/dL (70-110)
[2022-03-24] MEDS ORDERED: VANCOMYCIN TROUGH DUE 1 EACH MISC MISCELLANE ONE (04:00)
[2022-03-24 04:56] LABS: African American GFR (CKD) >90 (>60 ml/min/1.73 sqM); Anion Gap 5 mmol/L; Blood Urea Nitrogen 15 mg/dL (9-20); Calcium 8.2 mg/dL (8.4-10.2); Carbon Dioxide 29 mmol/L (22-30); Chloride 102 mmol/L (98-107); Glucose 162 mg/dL (74-99); Non-African American GFR(CKD) >90 (>60 ml/min/1.73 sqM); Potassium 4.2 mmol/L (3.5-5.1); Sodium 136 mmol/L (137-145)
[2022-03-24] MEDS: VANCOMYCIN 1,250 MG in SODIUM CHLORIDE 0.9% 250 ML IVPB SCH ×3 (05:25→22:35)
[2022-03-24 06:20] LABS: Glucose,Whole Blood 162 mg/dL (70-110)
--- NOTE | 2022-03-24 06:43 | P.CONS ---
History of Present Illness - Reason for Consult Consult date: 03/23/22 - History of Present Illness History of Present Illness : Patient is 66-year male presenting to the ER for evaluation of left hand pain swelling and redness patient mention he cut his hand on a grocery store shopping cart about a week ago did have a laceration on the dorsum aspect of his left hand and subsequently noticed to having increasing swelling redness and pain with some of the redness extending to the dorsum aspect of his left arm, patient describing the pain to be more of a sharp in nature almost 10 out of 10 in severity with some relief with the pain medication he has received and no radiation of the pain patient did have associated swelling and redness did not have any open wound or any drainage patient on presentation to the hospital was afebrile and no fever have been called subsequently patient did have a normal white count kidney function has been normal liver enzymes are normal patient was started on vancomycin infectious disease was consulted for further management of antibiotic therapy patient did have x-ray of the hand no significant normality seen, patient was started on vancomycin has been admitted to the hospital infectious disease was consulted for further management of antibiotic therapy Review of system: CONSTITUTIONAL: Positive for weakness denies high-grade fever. EYES: No complaint. ENT: No complaint. RESPIRATORY: No complaint. CARDIOVASCULAR: No complaint. GENITOURINARY: No complaint. GASTROINTESTINAL: No complaint. MUSCULOSKELETAL: As per history of present illness. INTEGUMENTARY : As per history of present illness. PSYCHOLOGIC: No complaint. ENDOCRINE: No complaint. NEUROLOGIC: No complaint. Past medical history : Reviewed, documented below Past surgical history : Reviewed, documented below Social history: Reviewed, documented below Medications: Reviewed, as documented below EXAMINATION: Vital sigans= Reviewed and documented below GENERAL DESCRIPTION: Elderly male lying in bed, no distress. No tachypnea or accessory muscle of respiration use. HEENT: Shows Pallor , no scleral icterus. Oral mucous membrane is dry. NECK: Trachea central, no thyromegaly. LUNGS: Unlabored breathing. Clear to auscultation anteriorly. No wheeze or c rackle. HEART: S1, S2, regular rate and rhythm. ABDOMEN: Soft, no tenderness , guarding or rigidity EXTREMITIES: Left hand dorsum did have a area of erythema and significant swelling which is tender to touch no open wound or any drainage SKIN: No rash, no masses palpable. NEUROLOGICAL: The patient is awake, alert, oriented x3, mood and affect normal. LABS AND RADIOLOGY: Reviewed results see below Assessment : 1patient presented to hospital with left hand cellulitis started with a trauma from a grocery cart with a laceration about a week ago now with significantly swelling and redness concerning for cellulitis and possible abscess will need to cover for the gram-positive skin yobany to be the likely pathogen Plan: 1-we will obtain a CT of the left hand to make sure no evidence of any a bscess that may need to be drained 2-Marked area of the redness 3-vancomycin pharmacy to dose target trough of 15 while watching kidney function and vancomycin trough closely We will follow on clinical condition and cultures to further adjust medication if needed Thank you for this consultation we will follow the patient along with you Past Medical History Past Medical History: Asthma, CVA/TIA, Diabetes Mellitus, Deep Vein Thrombosis (DVT), GERD/Reflux, Osteoarthritis (OA), Skin Disorder Additional Past Medical History / Comment(s): HX OF KIDNEY STONES, CROHNS DISEASE, HX OF BLOOD CLOT RT ARM AND BEHIND RT KNEE, TIA/seizure/brain bleed 08/2016, see Dr Wright H&P, "spots of dry skin", hx anemia, september 2018 stone removed L kidney History of Any Multi-Drug Resistant Organisms: MRSA Year Discovered:: 2006 MDRO Source:: nose Past Surgical History: Appendectomy, Back Surgery, Bowel Resection, Cholecystectomy, Heart Catheterization, Prostate Surgery Additional Past Surgical History / Comment(s): BOWEL RESECTION X 5, SPINAL SURGERIES X3, LEFT LOBECTOMY. lithotripsy, TURP, neck fusion. Past Anesthesia/Blood Transfusion Reactions: No Reported Reaction Past Psychological History: No Psychological Hx Reported Smoking Status: Former smoker Past Alcohol Use History: None Reported Past Drug Use History: None Reported - Past Family History Mother Family Medical History: Deep Vein Thrombosis (DVT) Medications and Allergies Home Medications Medication Instructions Recorded Confirmed Type levETIRAcetam [Keppra] 500 mg PO DAILY 02/22/17 03/22/22 History levETIRAcetam [Keppra] 1,000 mg PO HS 03/10/17 03/22/22 History Albuterol Sulfate [Albuterol 2 puff INHALATION RT-Q4H PRN 01/21/20 03/22/22 History Sulfate Hfa] Insulin Lispro [humaLOG Kwikpen] See Protocol SQ AC-TID 01/21/20 03/22/22 History Budesonide/Formoterol Fumarate 2 puff INHALATION RT-BID 05/08/20 03/22/22 History [Symbicort 160-4.5 Mcg Inhaler] Certolizumab Pegol [Cimzia] 400 mg SQ Q28D 07/17/21 03/22/22 History Insulin Glargine,Hum.rec.anlog 6 unit SQ HS 07/17/21 03/22/22 History [Lantus Solostar Pen] Tiotropium [place] [Spiriva] 1 cap INHALATION RT-DAILY 07/17/21 03/22/22 History Baclofen [Lioresal] 20 mg PO BID 10/08/21 03/22/22 History Budesonide [Entocort EC] 9 mg PO DAILY 10/08/21 03/22/22 History Nortriptyline [Pamelor] 25 mg PO TID 10/08/21 03/22/22 History Omeprazole 20 mg PO DAILY 10/08/21 03/22/22 History Lidocaine-Prilocaine Cream [Emla 1 applic TOPICAL Q28D PRN 12/07/21 03/22/22 History Cream 2.5%/2.5%] Ipratropium-Albuterol Nebulize 3 ml INHALATION RT-QID PRN #120 12/10/21 03/22/22 Rx [Duoneb 0.5 mg-3 mg/3 ml Soln] each Cyanocobalamin [Vitamin B-12 1,000 mcg SQ Q14D 03/22/22 03/22/22 History Injection] Rosuvastatin [Crestor] 10 mg PO DAILY 03/22/22 03/22/22 History Allergies Allergy/AdvReac Type Severity Reaction Status Date / Time aspirin Allergy Anaphylaxis Verified 03/22/22 20:41 bee venom protein (honey bee) Allergy Anaphylaxis Verified 03/22/22 20:41 penicillin G Allergy Rash/Hives Verified 03/22/22 20:41 venom-wasp [Wasp Venom] Allergy Anaphylaxis Verified 03/22/22 20:41 nalbuphine HCl [From Nubain] AdvReac Vomiting Verified 03/22/22 20:41 ondansetron HCl [From Zofran] AdvReac severe Verified 03/22/22 20:41 vomiting Physical Exam Vitals: Vital Signs Temp Pulse Resp BP Pulse Ox 03/23/22 11:40 84 03/23/22 11:30 80 03/23/22 07:53 97.7 F 77 16 120/72 97 03/23/22 07:36 86 03/23/22 07:27 84 03/23/22 06:42 98.2 F 78 16 119/68 99 03/23/22 04:00 16 03/23/22 03:17 98.4 F 81 16 125/77 96 03/23/22 01:00 98 F 78 16 122/80 99 03/22/22 23:00 16 03/22/22 18:56 80 18 145/78 100 03/22/22 15:35 98.0 F 98 20 149/83 99 Intake and Output 03/22/22 03/23/22 03/23/22 22:59 06:59 14:59 Other: Weight 74.843 kg Results CBC & Chem 7: 03/22/22 18:27 03/24/22 04:23 Labs: Abnormal Lab Results - Last 24 Hours (Table) 03/22/22 03/22/22 Range/Units 18:27 18:27 Hgb 12.2 L (13.0-17.5) gm/dL Hct 37.2 L (39.0-53.0) % ESR 41 H (0-15) mm/hr Creatinine 0.65 L (0.66-1.25) mg/dL Glucose 112 H (74-99) mg/dL
[2022-03-24] MEDS: SYMBICORT 160-4.5 MCG INHALER INHALATION SCH ×2 (07:40→20:12)
[2022-03-24] MEDS: IPRATROPIUM 0.5 MG/2.5 ML NEBU INHALATION SCH ×4 (07:40→20:12)
[2022-03-24] MEDS: HYDROmorphone 1 MG/ML 1 ML SYRINGE IVP PRN ×3 (08:09→22:11)
[2022-03-24] MEDS: NORTRIPTYLINE 25 MG CAP PO SCH ×3 (08:11→21:36)
[2022-03-24] MEDS: HEPARIN SODIUM,PORCINE/PF 5,000 UNIT/0.5 ML SYRINGE SQ SCH ×2 (08:11→21:36)
[2022-03-24] MEDS: PANTOPRAZOLE 40 MG TABLET PO SCH (08:11)
[2022-03-24] MEDS: levETIRAcetam 500 MG TAB PO SCH ×2 (08:11→21:36)
[2022-03-24] MEDS: ATORVASTATIN 20 MG TAB PO SCH (08:11)
[2022-03-24] MEDS: BACLOFEN 10 MG TAB PO SCH ×2 (08:11→21:36)
[2022-03-24] MEDS: NON FORMULARY DRUG (Budesonide [Entocort Ec] 3 MG Capdr...Er) PO SCH (08:12)
[2022-03-24 09:05] LABS: Basophils # (A) 0.03 X 10*3/uL (0.00-0.10); Basophils % (A) 0.6 %; Eosinophils # (A) 0.14 X 10*3/uL (0.04-0.35); Eosinophils % (A) 2.9 %; HCT 32.5 % (39.6-50.0); HGB 10.1 g/dL (13.0-17.0); Immature Grans, Automated 0.4 %; Lymphocytes # (A) 2.11 X 10*3/uL (0.90-5.00); Lymphocytes % (A) 43.6 %; MCH 27.1 pg (27.0-32.0); MCHC 31.1 g/dL (32.0-37.0); MCV 87.1 fL (80.0-97.0); Mean Platelet Volume 9.6 fL (9.5-12.2); Monocytes # (A) 0.71 X 10*3/uL (0.20-1.00); Monocytes % (A) 14.7 %; NRBC Per 100 WBC 0 /100 WBCS (0.0-0.0); Neutrophils # (A) 1.83 X 10*3/uL (1.80-7.70); Neutrophils % (A) 37.8 %; Platelet Count 179 X 10*3/uL (140-440); RBC 3.73 X 10*6/uL (4.40-5.60); WBC 4.84 X 10*3/uL (4.50-10.00)
[2022-03-24 12:08] LABS: Glucose,Whole Blood 132 mg/dL (70-110)
--- NOTE | 2022-03-24 15:27 | CDI ---
Documentation Clarification Form Date: 03/24/2022 From: Iwona Alcala RN, CCDS Admit Date: 03/23/2022 12:27:00 PM Patient Name: Ky Hickey Visit Number: [id number] Discharge Date: ATTENTION: The Clinical Documentation Specialists (CDI) and [facility] Coding Staff appreciate your assistance in clarifying documentation. Please respond to the clarification below the line at the bottom and electronically sign. The CDI & [facility] Coding staff will review the response and follow-up if needed. Please note: Queries are made part of the Legal Health Record. If you have any questions, please contact the author of this message via ITS. Dr. Shirley Gonsalez Cellulitis is documented ER, H/P and consult. Additional clarification regarding the type of cellulitis is requested. History/risk factors: Diabetes Mellitus, CVA, Crohn's disease Asthma, Osteoarthritis, Clinical Indicators: 66-year-old male present to ER for evaluation of left- hand pain swelling and redness. He cut his hand on a grocery store cart a week ago. He has diabetes mellitus. 149/83 98 20 98.0 99% RA 03/23 XS-ray Left hand/forearm: soft tissue swelling no evidence of subcutaneous gas formation or intraosseous abnormalities. Treatment: Vancomycin 1,250 MG IVPB Q8 HRS (PTD) 03/22-03/24 Please clarify the type of cellulitis, if known: [ ] Cellulitis due to diabetes [ ] Other, please specify: [ ] Unable to determine (Template Last Revised: June 2020) i Unable to determine MTDD
[2022-03-24 17:05] LABS: Glucose,Whole Blood 138 mg/dL (70-110)
[2022-03-24 19:32] LABS: Glucose,Whole Blood 126 mg/dL (70-110)
[2022-03-24] MEDS: INSULIN DETEMIR (LEVEMIR) 100 UNIT/ML SYR SQ SCH (21:36)
[2022-03-25] MEDS: HYDROmorphone 1 MG/ML 1 ML SYRINGE IVP PRN ×5 (02:06→22:06)
--- NOTE | 2022-03-25 03:13 | PN ---
PROGRESS NOTE DATE OF SERVICE: 03/24/2022 HISTORY OF PRESENT ILLNESS: This 66-year-old gentleman admitted with dorsum of the hand cellulitis, failure of outpatient treatment, patient is closely monitored. CT scan does not show any acute abscess. Orthopedic is following the patient closely. Cultures are pending. Patient on broad spectrum IV antibiotics. PHYSICAL EXAMINATION: VITAL SIGNS: Pulse is 70, blood pressure 110/62, and respirations 16. HEENT: Conjunctivae normal. NECK: No jugular venous distention. CARDIOVASCULAR: S1, S2 muffled. RESPIRATIONS: Breath sounds diminished at the bases. ABDOMEN: Soft. EXTREMITIES: Left hand cellulitis, swelling and extension erythema to the fingers as well as dorsum and proximal forearm also present. LABS: Reviewed. ASSESSMENT: 1. Left hand dorsal cellulitis with extension and failure of outpatient treatment. 2. Diabetes mellitus, type 2. 3. History of MRSA. 4. History of DVT. 5. Multiple medical issues. RECOMMENDATIONS: Recommended to continue current management and continue the vancomycin. Continue the rest of medications. Closely follow, see orders for details. Prognosis guarded. Further recommendations to follow. MMODL / IJN: [id number] /
[2022-03-25 05:43] LABS: Glucose,Whole Blood 99 mg/dL (70-110)
[2022-03-25] MEDS: METOCLOPRAMIDE 5 MG/ML 2 ML VIAL IVP PRN (06:09)
[2022-03-25] MEDS: VANCOMYCIN 1,250 MG in SODIUM CHLORIDE 0.9% 250 ML IVPB SCH ×3 (06:10→21:56)
[2022-03-25] MEDS: SYMBICORT 160-4.5 MCG INHALER INHALATION SCH ×2 (08:01→20:41)
[2022-03-25] MEDS: IPRATROPIUM 0.5 MG/2.5 ML NEBU INHALATION SCH ×4 (08:01→20:41)
[2022-03-25 08:11] LABS: African American GFR (CKD) >90 (>60 ml/min/1.73 sqM); Non-African American GFR(CKD) >90 (>60 ml/min/1.73 sqM)
[2022-03-25] MEDS: BACLOFEN 10 MG TAB PO SCH ×2 (08:53→21:56)
[2022-03-25] MEDS: NORTRIPTYLINE 25 MG CAP PO SCH ×3 (08:53→21:56)
[2022-03-25] MEDS: levETIRAcetam 500 MG TAB PO SCH ×2 (08:54→21:57)
[2022-03-25] MEDS: PANTOPRAZOLE 40 MG TABLET PO SCH (08:54)
[2022-03-25] MEDS: ATORVASTATIN 20 MG TAB PO SCH (08:54)
[2022-03-25] MEDS: HEPARIN SODIUM,PORCINE/PF 5,000 UNIT/0.5 ML SYRINGE SQ SCH ×2 (08:54→21:55)
[2022-03-25] MEDS: NON FORMULARY DRUG (Budesonide [Entocort Ec] 3 MG Capdr...Er) PO SCH (10:34)
[2022-03-25 12:32] LABS: Glucose,Whole Blood 121 mg/dL (70-110)
[2022-03-25 17:37] LABS: Glucose,Whole Blood 116 mg/dL (70-110)
[2022-03-25 20:32] LABS: Glucose,Whole Blood 115 mg/dL (70-110)
[2022-03-25] MEDS: INSULIN DETEMIR (LEVEMIR) 100 UNIT/ML SYR SQ SCH (21:56)
[2022-03-26] MEDS: HYDROmorphone 1 MG/ML 1 ML SYRINGE IVP PRN ×2 (03:14→08:50)
[2022-03-26] MEDS ORDERED: VANCOMYCIN TROUGH DUE 1 EACH MISC MISCELLANE ONE (04:00)
[2022-03-26 04:50] LABS: African American GFR (CKD) >90 (>60 ml/min/1.73 sqM); Non-African American GFR(CKD) >90 (>60 ml/min/1.73 sqM)
--- NOTE | 2022-03-26 04:58 | PN ---
PROGRESS NOTE DATE OF SERVICE: 03/25/2022 SUBJECTIVE: This 66-year-old gentleman admitted with significant infection of the dorsal cellulitis, is being closely monitored. The cultures are pending at this time. No chest pain. No palpitations. No fever. OBJECTIVE: VITAL SIGNS: Pulse is 69, blood pressure 140/80, respirations 16. CHEST: Clear to auscultation. CARDIOVASCULAR: S1, S2. ABDOMEN: Soft. EXTREMITIES: Left hand dorsum cellulitis present. Swelling is a little better. LABS: Reviewed. ASSESSMENT: 1. Acute left hand dorsal cellulitis with extension and failure of outpatient treatment. 2. Diabetes mellitus, type 2. 3. History of methicillin-resistant Staphylococcus aureus. 4. History of deep venous thrombosis. 5. Multiple medical issues. RECOMMENDATIONS AND DISCUSSION: Recommend to continue current management and symptomatic treatment. Continue with vancomycin. Otherwise, closely follow with Infectious Disease. Possible discharge in the next 24 to 48 hours on p.o. antibiotics. Prognosis guarded. Further recommendations to follow. MMODL / IJN: [id number] /
[2022-03-26] MEDS: VANCOMYCIN 1,250 MG in SODIUM CHLORIDE 0.9% 250 ML IVPB SCH (06:39)
[2022-03-26] MEDS: SYMBICORT 160-4.5 MCG INHALER INHALATION SCH (07:29)
[2022-03-26] MEDS: IPRATROPIUM 0.5 MG/2.5 ML NEBU INHALATION SCH ×2 (07:29→11:18)
[2022-03-26 07:58] LABS: Glucose,Whole Blood 106 mg/dL (70-110)
[2022-03-26 08:22] VITALS: BP 107/65; RESP 18; TEMP 97.6
[2022-03-26] MEDS: BACLOFEN 10 MG TAB PO SCH (08:45)
[2022-03-26] MEDS: ATORVASTATIN 20 MG TAB PO SCH (08:45)
[2022-03-26] MEDS: levETIRAcetam 500 MG TAB PO SCH (08:45)
[2022-03-26] MEDS: HEPARIN SODIUM,PORCINE/PF 5,000 UNIT/0.5 ML SYRINGE SQ SCH (08:45)
[2022-03-26] MEDS: NORTRIPTYLINE 25 MG CAP PO SCH (08:45)
[2022-03-26] MEDS: PANTOPRAZOLE 40 MG TABLET PO SCH (08:45)
[2022-03-26] MEDS: NON FORMULARY DRUG (Budesonide [Entocort Ec] 3 MG Capdr...Er) PO SCH (08:46)
[2022-03-26 11:20] VITALS: PULSE 84
--- NOTE | 2022-03-26 11:21 | P.PN ---
Subjective Progress Note Date: 03/24/22 Principal diagnosis: Left hand cellulitis Patient is 66-year male presenting to the ER for evaluation of left hand pain swelling and redness patient mention he cut his hand on a grocery store shopping cart about a week ago did have a laceration on the dorsum aspect of his left hand and subsequently noticed to having increasing swelling redness and pain with some of the redness extending to the dorsum aspect of his left arm, patient been diagnosed with a cellulitis he did have a CT that was negative for any abscess. On today's evaluation that is 03/24/2022, the patient denies having any fever or chills, the patient pain and swelling to the left hand dorsum and has decreased in intensity currently with no open wound or any drainage no chest pain shortness of breath or cough no abdominal pain no diarrhea Objective - Vital Signs Vital signs: Vital Signs Temp 97.8 F 03/24/22 08:00 Pulse 80 03/24/22 11:41 Resp 16 03/24/22 08:00 BP 127/65 03/24/22 08:00 Pulse Ox 98 03/24/22 08:00 FiO2 Intake & Output 03/23/22 03/24/22 03/24/22 18:59 06:59 18:59 Intake Total 1000 120 Balance 1000 120 Weight 74.843 kg Intake: Oral 1000 120 Other: Voiding Method Toilet Toilet # Voids 1 - Exam GENERAL DESCRIPTION: An elderly male lying in bed in no distress RESPIRATORY SYSTEM: Unlabored breathing , decreased breath sounds at bases HEART: S1 S2 regular rate and rhythm , ABDOMEN: Soft , no tenderness EXTREMITIES: Left hand dorsum did have area of swelling redness and induration the redness to the left arm has almost resolved - Labs CBC & Chem 7: 03/24/22 04:23 03/26/22 04:18 Labs: Abnormal Lab Results - Last 24 Hours (Table) 03/23/22 03/24/22 03/24/22 Range/Units 20:11 04:23 04:23 RBC 3.73 L (4.40-5.60) X 10*6/uL Hgb 10.1 L (13.0-17.0) g/dL Hct 32.5 L (39.6-50.0) % MCHC 31.1 L (32.0-37.0) g/dL RDW 15.0 H (11.5-14.5) % Sodium 136 L (137-145) mmol/L Glucose 162 H (74-99) mg/dL POC Glucose (mg/dL) 152 H (70-110) mg/dL Calcium 8.2 L (8.4-10.2) mg/dL 03/24/22 03/24/22 Range/Units 06:18 11:56 RBC (4.40-5.60) X 10*6/uL Hgb (13.0-17.0) g/dL Hct (39.6-50.0) % MCHC (32.0-37.0) g/dL RDW (11.5-14.5) % Sodium (137-145) mmol/L Glucose (74-99) mg/dL POC Glucose (mg/dL) 162 H 132 H (70-110) mg/dL Calcium (8.4-10.2) mg/dL Assessment and Plan (1) Cellulitis of left hand Current Visit: Yes Status: Acute Code(s): L03.114 - CELLULITIS OF LEFT UPPER LIMB SNOMED Code(s): 44181194 Plan: 1patient presented to hospital with left hand cellulitis started with a trauma from a grocery cart with a laceration about a week ago now with significantly swelling and redness concerning for cellulitis and possible abscess will need to cover for the gram-positive skin yobany to be the likely pathogen 2patient did have a CT of the left hand that was negative for any drainable abscess. 3patient seemed to have shown some clinical improvement and will continue with the vancomycin while watching his kidney function closely Time with Patient: Less than 30
--- NOTE | 2022-03-26 11:21 | P.PN ---
Subjective Progress Note Date: 03/25/22 Principal diagnosis: Left hand cellulitis Patient is 66-year male presenting to the ER for evaluation of left hand pain swelling and redness patient mention he cut his hand on a grocery store shopping cart about a week ago did have a laceration on the dorsum aspect of his left hand and subsequently noticed to having increasing swelling redness and pain with some of the redness extending to the dorsum aspect of his left arm, patient been diagnosed with a cellulitis he did have a CT that was negative for any abscess. On today's evaluation that is 03/25/2022, the patient remains to be afebrile, the patient pain and swelling to the left hand dorsum and has decreased in intensity, the patient denies chest pain shortness of breath or cough no abdominal pain no diarrhea Objective - Vital Signs Vital signs: Vital Signs Temp 97.6 F 03/25/22 08:00 Pulse 80 03/25/22 11:22 Resp 16 03/25/22 08:00 BP 140/86 03/25/22 08:00 Pulse Ox 96 03/25/22 08:00 FiO2 Intake & Output 03/24/22 03/25/22 03/25/22 18:59 06:59 18:59 Intake Total 600 250 340 Balance 600 250 340 Intake: Intake, IV Titration 250 Amount Vancomycin 1,250 mg In 250 Sodium Chloride 0.9% 250 ml @ 125 mls/hr IVPB Q8H [facility] Rx#:[id number] Oral 600 340 Other: Voiding Method Toilet Toilet # Voids 1 1 - Exam GENERAL DESCRIPTION: An elderly male lying in bed in no distress RESPIRATORY SYSTEM: Unlabored breathing , decreased breath sounds at bases HEART: S1 S2 regular rate and rhythm , ABDOMEN: Soft , no tenderness EXTREMITIES: Left hand dorsum did have area of swelling redness and induration t he redness to the left arm has almost resolved - Labs CBC & Chem 7: 03/24/22 04:23 03/26/22 04:18 Labs: Abnormal Lab Results - Last 24 Hours (Table) 03/24/22 03/24/22 03/25/22 Range/Units 17:01 19:31 07:03 Creatinine 0.60 L (0.66-1.25) mg/dL POC Glucose (mg/dL) 138 H 126 H (70-110) mg/dL 03/25/22 Range/Units 12:31 Creatinine (0.66-1.25) mg/dL POC Glucose (mg/dL) 121 H (70-110) mg/dL Assessment and Plan (1) Cellulitis of left hand Current Visit: Yes Status: Acute Code(s): L03.114 - CELLULITIS OF LEFT UPPER LIMB SNOMED Code(s): 04210461 Plan: 1patient presented to hospital with left hand cellulitis started with a trauma from a grocery cart with a laceration about a week ago now with significantly swelling and redness concerning for cellulitis and possible abscess will need to cover for the gram-positive skin yobany to be the likely pathogen 2patient did have a CT of the left hand that was negative for any drainable abscess. 3patient has shown clinical improvement with vancomycin which will be continued with the plan to finish therapy with oral antibiotics Time with Patient: Less than 30
[2022-03-26 12:10] LABS: Glucose,Whole Blood 107 mg/dL (70-110)
--- NOTE | 2022-03-26 16:57 | P.PN ---
Subjective Progress Note Date: 03/26/22 Principal diagnosis: Left hand cellulitis Patient is 66-year male presenting to the ER for evaluation of left hand pain swelling and redness patient mention he cut his hand on a grocery store shopping cart about a week ago did have a laceration on the dorsum aspect of his left hand and subsequently noticed to having increasing swelling redness and pain with some of the redness extending to the dorsum aspect of his left arm, patient been diagnosed with a cellulitis he did have a CT that was negative for any abscess. On today's evaluation that is 03/26/2022, the patient continues to be afebrile, the patient pain and swelling to the left hand dorsum has decreased in intensity, the patient denies chest pain shortness of breath or cough no abdominal pain no diarrhea, overall feeling better Objective - Vital Signs Vital signs: Vital Signs Temp 97.6 F 03/26/22 08:00 Pulse 84 03/26/22 11:29 Resp 18 03/26/22 08:00 BP 107/65 03/26/22 08:00 Pulse Ox 94 L 03/26/22 08:00 FiO2 Intake & Output 03/25/22 03/26/22 03/26/22 18:59 06:59 18:59 Intake Total 520 Balance 520 Intake: Oral 520 Other: Voiding Method Toilet # Voids 1 1 - Exam GENERAL DESCRIPTION: An elderly male lying in bed in no distress RESPIRATORY SYSTEM: Unlabored breathing , decreased breath sounds at bases HEART: S1 S2 regular rate and rhythm , ABDOMEN: Soft , no tenderness EXTREMITIES: Left hand dorsum did have area of swelling redness and induration the redness to the left arm has almost resolved - Labs CBC & Chem 7: 03/24/22 04:23 03/26/22 04:18 Labs: Abnormal Lab Results - Last 24 Hours (Table) 03/25/22 03/25/22 Range/Units 17:35 20:31 POC Glucose (mg/dL) 116 H 115 H (70-110) mg/dL Assessment and Plan (1) Cellulitis of left hand Status: Acute Code(s): L03.114 - CELLULITIS OF LEFT UPPER LIMB SNOMED Code(s): 08775081 Plan: 1patient presented to hospital with left hand cellulitis started with a trauma from a grocery cart with a laceration about a week ago now with significantly swelling and redness concerning for cellulitis and possible abscess will need to cover for the gram-positive skin yobany to be the likely pathogen 2patient did have a CT of the left hand that was negative for any drainable abscess. 3patient has shown clinical improvement with vancomycin with a plan to finish therapy with oral doxycycline discussed with the [employer] for admitting team Time with Patient: Less than 30
[2022-03-26] MEDS ORDERED: VANCOMYCIN 1,500 MG in SODIUM CHLORIDE 0.9% 500 ML 500 ML IVPB SCH (22:00)
--- NOTE | 2022-03-28 10:41 | P.DS ---
Providers Date of admission: 03/23/22 12:27 Expected date of discharge: 03/26/22 Attending physician: Valerie Burris MD Consults: 03/23/22 11:27 Consult Physician Urgent Consulting Provider: Jacob Park Consult Reason/Comments: left hand cellulitis, swelling Do you want consulting provider notified?: Yes 03/23/22 12:36 Consult Physician Urgent Consulting Provider: Edward Hernandez Consult Reason/Comments: left hand cellulitis Do you want consulting provider notified?: Yes Primary care physician: Damian Burris MD Hospital Course: Final diagnosis Acute left hand dorsal cellulitis with extension and failure of outpatient therapy of the left hand dorsal injury with laceration Diabetes mellitus, type II History of MRSA History of deep vein thrombosis History of CVA/TIA History of osteoarthritis DVT prophylaxis GI prophylaxis Full code Discharge disposition Patient is being discharged in a stable condition with guarded prognosis to home. Patient will follow-up with Dr. Grewal in the outpatient setting upon discharge. Patient is to continue on oral doxycycline twice daily for the next 10 days and also follow-up with infectious disease at the wound care clinic as scheduled. Total time taken is greater than 35 minutes. Hospital course This is a 66-year-old male who was recently admitted with cellulitis of the left hand due to a laceration caused by recyclable cans and bottles and was closely monitored. Patient was evaluated by orthopedics recommending no surgical intervention and continuing with antibiotics. Infectious disease also following and unfortunately no cultures obtained although blood cultures were negative. Patient was continued on IV antibiotics with concerns for MRSA and will continue with local wound care and close outpatient follow-up at the wound care center with Dr. Park and also on oral doxycycline for the next 10 days. Patient will follow-up with primary care provider in the outpatient setting. Patient is a diabetic recommending tight glycemic control Currently no reports of chest pain, shortness of breath, or palpitations. Patient is afebrile. No reports of nausea or vomiting and patient is tolerating diet. Patient will be discharged home today. Guarded prognosis Physical exam: Gen: This is a 66-year-old male who is awake, alert and oriented 3, well- developed, well-nourished HEENT: Head is atraumatic, normocephalic. Pupils equal, round. Sclerae is anicteric. NECK: Supple. No JVD. No lymphadenopathy. No thyromegaly. LUNGS: Clear to auscultation. No wheezes or rhonchi. No intercostal retractio ns. HEART: Regular rate and rhythm. No murmur. ABDOMEN: Soft. Bowel sounds are present. No masses. No tenderness. EXTREMITIES: No pedal edema. No calf tenderness. Left dorsal hand with erythema and swelling noted with surrounding cellulitis with improvement NEUROLOGICAL: Patient is awake, alert and oriented x3. Cranial nerves 2 through 12 are grossly intact. Please refer to medication reconciliation sheet for a list of medications. The impression and plan of care has been dictated by Gladys Clark, Nurse Practitioner as directed. Dr. Wallace MD I have performed a history and examination and MDM of this patient, discussed the same with the dictator, and agree with the dictator's assessment and plan as written ,documented as a scribe. Based on total visit time, I have performed more than 50% of the visit. Patient Condition at Discharge: Stable Plan - Discharge Summary Discharge Rx Participant: No New Discharge Prescriptions: New HYDROcodone/APAP 5-325MG [[place] 5-325] 1 each PO Q6HR PRN #6 tab PRN Reason: Moderate Pain (Scale 4 To 6) Doxycycline [Vibramycin] 100 mg PO BID 30 Days #20 cap Continue levETIRAcetam [Keppra] 500 mg PO DAILY levETIRAcetam [Keppra] 1,000 mg PO HS Albuterol Sulfate [Albuterol Sulfate Hfa] 2 puff INHALATION RT-Q4H PRN PRN Reason: Shortness Of Breath Insulin Lispro [humaLOG Kwikpen] See Protocol SQ AC-TID Budesonide/Formoterol Fumarate [Symbicort 160-4.5 Mcg Inhaler] 2 puff INHALATION RT-BID Tiotropium [place] [Spiriva] 1 cap INHALATION RT-DAILY Insulin Glargine,Hum.rec.anlog [Lantus Solostar Pen] 6 unit SQ HS Certolizumab Pegol [Cimzia] 400 mg SQ Q28D Nortriptyline [Pamelor] 25 mg PO TID Budesonide [Entocort EC] 9 mg PO DAILY Ipratropium-Albuterol Nebulize [Duoneb 0.5 mg-3 mg/3 ml Soln] 3 ml INHALATION RT-QID PRN #120 each PRN Reason: Shortness Of Breath Cyanocobalamin [Vitamin B-12 Injection] 1,000 mcg SQ Q14D Omeprazole 20 mg PO DAILY Baclofen [Lioresal] 20 mg PO BID Lidocaine-Prilocaine Cream [Emla Cream 2.5%/2.5%] 1 applic TOPICAL Q28D PRN PRN Reason: prior to Cimzia injection Rosuvastatin [Crestor] 10 mg PO DAILY Discharge Medication List levETIRAcetam [Keppra] 500 mg PO DAILY 02/22/17 [History] levETIRAcetam [Keppra] 1,000 mg PO HS 03/10/17 [History] Albuterol Sulfate [Albuterol Sulfate Hfa] 2 puff INHALATION RT-Q4H PRN 01/21/20 [History] Insulin Lispro [humaLOG Kwikpen] See Protocol SQ AC-TID 01/21/20 [History] Budesonide/Formoterol Fumarate [Symbicort 160-4.5 Mcg Inhaler] 2 puff INHALATION RT-BID 05/08/20 [History] Certolizumab Pegol [Cimzia] 400 mg SQ Q28D 07/17/21 [History] Insulin Glargine,Hum.rec.anlog [Lantus Solostar Pen] 6 unit SQ HS 07/17/21 [History] Tiotropium [place] [Spiriva] 1 cap INHALATION RT-DAILY 07/17/21 [History] Baclofen [Lioresal] 20 mg PO BID 10/08/21 [History] Budesonide [Entocort EC] 9 mg PO DAILY 10/08/21 [History] Nortriptyline [Pamelor] 25 mg PO TID 10/08/21 [History] Omeprazole 20 mg PO DAILY 10/08/21 [History] Lidocaine-Prilocaine Cream [Emla Cream 2.5%/2.5%] 1 applic TOPICAL Q28D PRN 12/07/21 [History] Ipratropium-Albuterol Nebulize [Duoneb 0.5 mg-3 mg/3 ml Soln] 3 ml INHALATION RT-QID PRN #120 each 12/10/21 [Rx] Cyanocobalamin [Vitamin B-12 Injection] 1,000 mcg SQ Q14D 03/22/22 [History] Rosuvastatin [Crestor] 10 mg PO DAILY 03/22/22 [History] Doxycycline [Vibramycin] 100 mg PO BID 30 Days #20 cap 03/26/22 [Rx] HYDROcodone/APAP 5-325MG [[place] 5-325] 1 each PO Q6HR PRN #6 tab 03/26/22 [Rx] Follow up Appointment(s)/Referral(s): Damian Burris MD [Primary Care Provider] - 1-2 days Jacob Park MD [STAFF PHYSICIAN] - 1 Week (The skull [phone] to make an appointment at [facility] wound care center with Dr. Park) Patient Instructions/Handouts: Cellulitis (GEN) Activity/Diet/Wound Care/Special Instructions: Activity Limited until follow-up Follow-up with primary care provider on discharge Continue taking antibiotics as prescribed Keep the area clean and dry and avoid touching Elevate while at rest Follow-up with infectious disease in one week Discharge Disposition: HOME SELF-CARE
== END 2022-03-26 15:35 | disposition home or self-care (01) | DRG 603 ==
LOC: EC 15:28 → 6NMEDSUR 20:04 → OBSVTOIN 03-23 12:27 → 6NMEDSUR 03-23 18:31
PROVIDERS: ADMIT Internal Medicine; ATTEND Internal Medicine
PROC: 05HC33Z Insertion of Infusion Device into Left Basilic Vein, Percutaneous Approach (ICD-10-PCS; principal; 2022-03-25 13:50)
DX: L03.114 Cellulitis of left upper limb (principal); K50.90 Crohn's disease, unspecified, without complications; D84.9 Immunodeficiency, unspecified; E11.9 Type 2 diabetes mellitus without complications; S41.112A Laceration without foreign body of left upper arm, initial encounter; S61.412A Laceration without foreign body of left hand, initial encounter; J45.909 Unspecified asthma, uncomplicated; Z79.51 Long term (current) use of inhaled steroids; Z79.899 Other long term (current) drug therapy; Z86.14 Personal history of Methicillin resistant Staphylococcus aureus infection; Z86.718 Personal history of other venous thrombosis and embolism; Z86.73 Personal history of transient ischemic attack (TIA), and cerebral infarction without residual deficits; Z87.442 Personal history of urinary calculi; Z87.891 Personal history of nicotine dependence; Z98.1 Arthrodesis status; Z87.19 Personal history of other diseases of the digestive system; Z90.49 Acquired absence of other specified parts of digestive tract
CPT/HCPCS: 36410; 36415; 76937; 80048; 80053; 80202; 82565; 83605; 84145; 85025; 85652; 86140; 90471; 90715; 94640; 96365; 96366; 96372; 96375; 99285

== ENCOUNTER → 2022-03-30 | Outpatient (CLI) | payer MEDICARE | END | disposition home or self-care (01) | LOC: LABWHC1 14:02 | PROVIDERS: ATTEND Family Medicine | DX: E11.9 Type 2 diabetes mellitus without complications (principal) | CPT/HCPCS: 36415; 83036 ==

== ENCOUNTER → 2022-04-09 | Outpatient (CLI) | payer MEDICARE | END | disposition home or self-care (01) | LOC: LABWHC1 15:08 | PROVIDERS: ATTEND Family Medicine | DX: E11.9 Type 2 diabetes mellitus without complications (principal) | CPT/HCPCS: 36415; 83036 ==

== ENCOUNTER 2022-09-13 12:18 | Emergency (ER) | payer MEDICARE ==
[2022-09-13] MEDS ORDERED: SODIUM CHLORIDE 0.9% 1,000 ML IV STA (12:34)
[2022-09-13] MEDS ORDERED: PANTOPRAZOLE 40 MG/10 ML VIAL IVP STA (12:34)
[2022-09-13] MEDS ORDERED: METOCLOPRAMIDE 5 MG/ML 2 ML VIAL IVP STA (12:37)
[2022-09-13] MEDS ORDERED: HYDROmorphone 1 MG/ML 1 ML SYRINGE IVP STA ×3 (12:37→17:37)
--- NOTE | 2022-09-13 12:43 | ED ---
Abdominal Pain HPI - General Chief Complaint: Abdominal Pain Stated Complaint: abdominal pain Time Seen by Provider: 09/13/22 12:21 Source: patient, EMS, RN notes reviewed, old records reviewed Mode of arrival: EMS - History of Present Illness Initial Comments: 67-year-old male with a history of multiple medical issues including kidney stones Crohn's disease DVT COPD who states he woke up this morning with severe right-sided flank pain sharp in nature over his right kidney radiating around to the lower abdomen into the anterior lower abdomen. Nausea vomiting weakness decreased urine output. States it feels very similar to his kidney stones he's had before he states that sharp pain 8-9/10 in severity. He does state he had extensive bowel surgery done in June of this year at [facility]. No issues from that however. He also does say he's scheduled to have an ultrasound was right lower extremity done on today being Wednesday to rule out DVT. He denies any pain he swallowing he states he does have pain when he does ambulate and is upright however. MD Complaint: flank pain - Related Data Home Medications Medication Instructions Recorded Confirmed levETIRAcetam [Keppra] 500 mg PO DAILY 02/22/17 09/13/22 levETIRAcetam [Keppra] 1,000 mg PO HS 03/10/17 09/13/22 Albuterol Sulfate [Albuterol 2 puff INHALATION RT-Q4H PRN 01/21/20 09/13/22 Sulfate Hfa] Budesonide/Formoterol Fumarate 2 puff INHALATION RT-BID 05/08/20 09/13/22 [Symbicort 160-4.5 Mcg Inhaler] Certolizumab Pegol [Cimzia] 400 mg SQ Q28D 07/17/21 09/13/22 Insulin Glargine,Hum.rec.anlog 6 unit SQ HS 07/17/21 09/13/22 [Lantus Solostar Pen] Baclofen [Lioresal] 20 mg PO BID 10/08/21 09/13/22 Nortriptyline [Pamelor] 25 mg PO TID 10/08/21 09/13/22 Omeprazole 20 mg PO DAILY 10/08/21 09/13/22 Lidocaine-Prilocaine Cream [Emla 1 applic TOPICAL Q28D PRN 12/07/21 09/13/22 Cream 2.5%/2.5%] Rosuvastatin [Crestor] 10 mg PO HS 03/22/22 09/13/22 Isosorbide Mononitrate ER [Imdur] 30 mg PO DAILY 09/13/22 09/13/22 Tiotropium 2.5 Mcg/Puff [Spiriva 2 puff INHALATION RT-DAILY 09/13/22 09/13/22 Respimat 2.5 Mcg] Previous Rx's Medication Instructions Recorded Ipratropium-Albuterol Nebulize 3 ml INHALATION RT-QID PRN #120 12/10/21 [Duoneb 0.5 mg-3 mg/3 ml Soln] each HYDROcodone/APAP 7.5-325MG [[place] 1 tab PO Q6HR PRN 3 Days #12 tab 09/13/22 7.5-325] Allergies Allergy/AdvReac Type Severity Reaction Status Date / Time aspirin Allergy Anaphylaxis Verified 09/13/22 17:39 bee venom protein (honey bee) Allergy Anaphylaxis Verified 09/13/22 17:39 penicillin G Allergy Rash/Hives Verified 09/13/22 17:39 venom-wasp [Wasp Venom] Allergy Anaphylaxis Verified 09/13/22 17:39 nalbuphine HCl [From Nubain] AdvReac Vomiting Verified 09/13/22 17:39 ondansetron HCl [From Zofran] AdvReac severe Verified 09/13/22 17:39 vomiting Review of Systems ROS Statement: Those systems with pertinent positive or pertinent negative responses have been documented in the HPI. ROS Other: All systems not noted in ROS Statement are negative. Past Medical History Past Medical History: Asthma, CVA/TIA, Diabetes Mellitus, Deep Vein Thrombosis (DVT), GERD/Reflux, Osteoarthritis (OA), Skin Disorder Additional Past Medical History / Comment(s): HX OF KIDNEY STONES, CROHNS DISEASE, HX OF BLOOD CLOT RT ARM AND BEHIND RT KNEE, TIA/seizure/brain bleed 08/2016, see Dr Wright H&P, "spots of dry skin", hx anemia, september 2018 stone removed L kidney History of Any Multi-Drug Resistant Organisms: MRSA Date of last positivie culture/infection: 2006 MDRO Source:: nose Past Surgical History: Appendectomy, Back Surgery, Bowel Resection, Cholecystectomy, Heart Catheterization, Prostate Surgery Additional Past Surgical History / Comment(s): BOWEL RESECTION X 5, SPINAL SURGERIES X3, LEFT LOBECTOMY. lithotripsy, TURP, neck fusion. Past Anesthesia/Blood Transfusion Reactions: No Reported Reaction Past Psychological History: No Psychological Hx Reported Smoking Status: Former smoker Past Alcohol Use History: None Reported Past Drug Use History: None Reported - Past Family History Mother Family Medical History: Deep Vein Thrombosis (DVT) General Exam - General Exam Comments Initial Comments: This is a well-developed well-nourished awake alert oriented 4 male General appearance: alert, anxious Head exam: Present: atraumatic, normocephalic, normal inspection Eye exam: Present: normal appearance, PERRL, EOMI. Absent: scleral icterus, conjunctival injection, periorbital swelling ENT exam: Present: normal exam, mucous membranes moist Neck exam: Present: normal inspection, full ROM, other (No stridor JVD or bruits). Absent: tenderness, meningismus, lymphadenopathy Respiratory exam: Present: normal lung sounds bilaterally. Absent: respiratory distress, wheezes, rales, rhonchi, stridor Cardiovascular Exam: Present: regular rate, normal rhythm, normal heart sounds. Absent: systolic murmur, diastolic murmur, rubs, gallop, clicks GI/Abdominal exam: Present: soft, normal bowel sounds. Absent: distended, tenderness, guarding, rebound, rigid, bruit, pulsatile mass Rectal exam: Present: deferred Extremities exam: Present: normal inspection, full ROM, normal capillary refill. Absent: tenderness, pedal edema, joint swelling, calf tenderness Back exam: Present: normal inspection, CVA tenderness (R) Neurological exam: Present: alert, oriented X3, CN II-XII intact Psychiatric exam: Present: normal affect, normal mood Skin exam: Present: warm, dry, intact, normal color. Absent: rash Course Vital Signs 09/13/22 09/13/22 12:20 17:40 Temperature 97.7 F Pulse Rate 58 L 64 Respiratory 20 19 Rate Blood Pressure 188/86 178/85 O2 Sat by Pulse 100 98 Oximetry Medical Decision Making - Medical Decision Making Patient did require several shots of pain medication but did feel much improved I did discuss the case with him also with Dr. Dumont. Patient will be discharged with pain medication oral fluids he will call the urology office tomorrow and make an appointment to get evaluated for evaluation of the ureteral stone.Was pt. sent in by a medical professional or institution (, BROOKE, ANODE REBUILDER, urgent care, hospital, or [place] health care facility...) When possible be specific @ -No Did you speak to anyone other than the patient for history (EMS, parent, family, police, friend...)? What history was obtained from this source @ -No Did you review nursing and triage notes (agree or disagree)? Why? @ -I reviewed and agree with nursing and triage notes Were old charts reviewed (outside hosp., previous admission, EMS record, old EKG, old radiological studies, urgent care reports/EKG's, [place] health care facility records)? Report findings @ - old charts were reviewed Differential Diagnosis (chest pain, altered mental status, abdominal pain women, abdominal pain men, vaginal bleeding, weakness, fever, dyspnea, syncope, headache, dizziness, GI bleed, back pain, seizure, CVA, palpatations, mental health, musculoskeletal)? @ -Abdominal pain, flank pain EKG interpreted by me (3pts min.). @ -As above X-rays interpreted by me (1pt min.). @ -As above CT interpreted by me (1pt min.). @ -As above right ureteral stone with hydroureter hydronephrosis] U/S interpreted by me (1pt. min.). @ -None done What testing was considered but not performed or refused? (CT, X-rays, U/S, labs)? Why? @ -None What meds were considered but not given or refused? Why? @ -None Did you discuss the management of the patient with other professionals (professionals i.e. , BROOKE, ANODE REBUILDER, lab, RT, psych nurse, rn social services, contract mail carrier, teacher, fiscal officer, mattress spring encaser)? Give summary @ -Dr. Dumont Was smoking cessation discussed for >3mins.? @ -No Was critical care preformed (if so, how long)? @ -No Were there social determinants of health that impacted care today? How? (Homelessness, low income, unemployed, alcoholism, drug addiction, transportation, low edu. Level, literacy, decrease access to med. care, assisted, r ehab)? @ -No Was there de-escalation of care discussed even if they declined (Discuss DNR or withdrawal of care, Hospice)? DNR status @ -No What co-morbidities impacted this encounter? (DM, HTN, Smoking, COPD, CAD, Cancer, CVA, ARF, Chemo, Hep., AIDS, mental health diagnosis, sleep apnea, morbid obesity)? @ -Kidney stone, bowel surgery Was patient admitted / discharged? Hospital course, mention meds given and route, prescriptions, significant lab abnormalities, going to OR and other pertinent info. @ -hospital course Undiagnosed new problem with uncertain prognosis? @ -No Drug Therapy requiring intensive monitoring for toxicity (Heparin, Nitro, Insulin, Cardizem)? @ -No Were any procedures done? @ -No Diagnosis/symptom? @ -Renal colic, right ureterolithiasis, hydroureter, hydronephrosis Acute, or Chronic, or Acute on Chronic? @ -Acute Uncomplicated (without systemic symptoms) or Complicated (systemic symptoms)? @ -default Side effects of treatment? @ -No Exacerbation, Progression, or Severe Exacerbation? @ -No Poses a threat to life or bodily function? How? (Chest pain, [place], NH, pneumonia, PE, COPD, DKA, ARF, appy, cholecystitis, CVA, Diverticulitis, Homicidal, Suicidal, threat to staff... and all critical care pts) @ -No - Lab Data Result diagrams: 09/13/22 12:42 09/13/22 12:42 Lab Results 09/13/22 09/13/22 09/13/22 Range/Units 12:42 12:42 12:42 WBC 7.7 (3.8-10.6) k/uL RBC 4.87 (4.30-5.90) m/uL Hgb 13.0 (13.0-17.5) gm/dL Hct 41.3 (39.0-53.0) % MCV 84.7 (80.0-100.0) fL MCH 26.6 (25.0-35.0) pg MCHC 31.4 (31.0-37.0) g/dL RDW 16.1 H (11.5-15.5) % Plt Count 177 (150-450) k/uL MPV 7.1 Neutrophils % 72 % Lymphocytes % 20 % Monocytes % 6 % Eosinophils % 1 % Basophils % 0 % Neutrophils # 5.5 (1.3-7.7) k/uL Lymphocytes # 1.5 (1.0-4.8) k/uL Monocytes # 0.5 (0-1.0) k/uL Eosinophils # 0.0 (0-0.7) k/uL Basophils # 0.0 (0-0.2) k/uL Hypochromasia Slight Anisocytosis Slight Sodium 140 (137-145) mmol/L Potassium 3.7 (3.5-5.1) mmol/L Chloride 103 (98-107) mmol/L Carbon Dioxide 27 (22-30) mmol/L Anion Gap 10 mmol/L BUN 18 (9-20) mg/dL Creatinine 1.10 (0.66-1.25) mg/dL Est GFR (CKD-EPI)AfAm 79 (>60 ml/min/1.73 sqM) Est GFR (CKD-EPI)NonAf 69 (>60 ml/min/1.73 sqM) Glucose 97 (74-99) mg/dL Lactic Ac Sepsis Rflx Plasma Lactic Acid Jose Miguel 2.1 H* (0.7-2.0) mmol/L Calcium 8.8 (8.4-10.2) mg/dL Magnesium 1.4 L (1.6-2.3) mg/dL Total Bilirubin 0.8 (0.2-1.3) mg/dL AST 32 (17-59) U/L ALT 26 (4-49) U/L Alkaline Phosphatase 123 (38-126) U/L Creatine Kinase 158 (55-170) U/L Troponin I (0.000-0.034) ng/mL Total Protein 8.1 (6.3-8.2) g/dL Albumin 4.3 (3.5-5.0) g/dL Amylase 60 (30-110) U/L Lipase 171 (23-300) U/L Urine Color Urine Appearance (Clear) Urine pH (5.0-8.0) Ur Specific [place] (1.001-1.035) Urine Protein (Negative) Urine Glucose (UA) (Negative) Urine Ketones (Negative) Urine Blood (Negative) Urine Nitrite (Negative) Urine Bilirubin (Negative) Urine Urobilinogen (<2.0) mg/dL Ur Leukocyte Esterase (Negative) Urine RBC (0-5) /hpf Urine WBC (0-5) /hpf 06/04/23 06/04/23 06/04/23 Range/Units 12:42 12:42 13:26 WBC (3.8-10.6) k/uL RBC (4.30-5.90) m/uL Hgb (13.0-17.5) gm/dL Hct (39.0-53.0) % MCV (80.0-100.0) fL MCH (25.0-35.0) pg MCHC (31.0-37.0) g/dL RDW (11.5-15.5) % Plt Count (150-450) k/uL MPV Neutrophils % % Lymphocytes % % Monocytes % % Eosinophils % % Basophils % % Neutrophils # (1.3-7.7) k/uL Lymphocytes # (1.0-4.8) k/uL Monocytes # (0-1.0) k/uL Eosinophils # (0-0.7) k/uL Basophils # (0-0.2) k/uL Hypochromasia Anisocytosis Sodium (137-145) mmol/L Potassium (3.5-5.1) mmol/L Chloride (98-107) mmol/L Carbon Dioxide (22-30) mmol/L Anion Gap mmol/L BUN (9-20) mg/dL Creatinine (0.66-1.25) mg/dL Est GFR (CKD-EPI)AfAm (>60 ml/min/1.73 sqM) Est GFR (CKD-EPI)NonAf (>60 ml/min/1.73 sqM) Glucose (74-99) mg/dL Lactic Ac Sepsis Rflx Y Plasma Lactic Acid Jose Miguel (0.7-2.0) mmol/L Calcium (8.4-10.2) mg/dL Magnesium (1.6-2.3) mg/dL Total Bilirubin (0.2-1.3) mg/dL AST (17-59) U/L ALT (4-49) U/L Alkaline Phosphatase (38-126) U/L Creatine Kinase (55-170) U/L Troponin I <0.012 (0.000-0.034) ng/mL Total Protein (6.3-8.2) g/dL Albumin (3.5-5.0) g/dL Amylase (30-110) U/L Lipase (23-300) U/L Urine Color Light Yellow Urine Appearance Clear (Clear) Urine pH 8.0 (5.0-8.0) Ur Specific [place] 1.012 (1.001-1.035) Urine Protein Negative (Negative) Urine Glucose (UA) Negative (Negative) Urine Ketones Negative (Negative) Urine Blood Small H (Negative) Urine Nitrite Negative (Negative) Urine Bilirubin Negative (Negative) Urine Urobilinogen <2.0 (<2.0) mg/dL Ur Leukocyte Esterase Negative (Negative) Urine RBC 42 H (0-5) /hpf Urine WBC 2 (0-5) /hpf 09/13/22 Range/Units 15:32 WBC (3.8-10.6) k/uL RBC (4.30-5.90) m/uL Hgb (13.0-17.5) gm/dL Hct (39.0-53.0) % MCV (80.0-100.0) fL MCH (25.0-35.0) pg MCHC (31.0-37.0) g/dL RDW (11.5-15.5) % Plt Count (150-450) k/uL MPV Neutrophils % % Lymphocytes % % Monocytes % % Eosinophils % % Basophils % % Neutrophils # (1.3-7.7) k/uL Lymphocytes # (1.0-4.8) k/uL Monocytes # (0-1.0) k/uL Eosinophils # (0-0.7) k/uL Basophils # (0-0.2) k/uL Hypochromasia Anisocytosis Sodium (137-145) mmol/L Potassium (3.5-5.1) mmol/L Chloride (98-107) mmol/L Carbon Dioxide (22-30) mmol/L Anion Gap mmol/L BUN (9-20) mg/dL Creatinine (0.66-1.25) mg/dL Est GFR (CKD-EPI)AfAm (>60 ml/min/1.73 sqM) Est GFR (CKD-EPI)NonAf (>60 ml/min/1.73 sqM) Glucose (74-99) mg/dL Lactic Ac Sepsis Rflx Plasma Lactic Acid Jose Miguel 1.2 (0.7-2.0) mmol/L Calcium (8.4-10.2) mg/dL Magnesium (1.6-2.3) mg/dL Total Bilirubin (0.2-1.3) mg/dL AST (17-59) U/L ALT (4-49) U/L Alkaline Phosphatase (38-126) U/L Creatine Kinase (55-170) U/L Troponin I (0.000-0.034) ng/mL Total Protein (6.3-8.2) g/dL Albumin (3.5-5.0) g/dL Amylase (30-110) U/L Lipase (23-300) U/L Urine Color Urine Appearance (Clear) Urine pH (5.0-8.0) Ur Specific [place] (1.001-1.035) Urine Protein (Negative) Urine Glucose (UA) (Negative) Urine Ketones (Negative) Urine Blood (Negative) Urine Nitrite (Negative) Urine Bilirubin (Negative) Urine Urobilinogen (<2.0) mg/dL Ur Leukocyte Esterase (Negative) Urine RBC (0-5) /hpf Urine WBC (0-5) /hpf - EKG Data -: EKG Interpreted by Me EKG Comments: EKG interpreted by me shows a sinus bradycardia rate of 54 TN interval 204 QRS S 96 ms QT/QTC 450/[address]-T wave changes - Radiology Data Interpreted by me: the evaluated by me and interpreted no acute process CT shows evidence of a 1.6 cm calculus in the right ureter at the UPJ with evidence of hydroureter and hydronephrosis. Disposition Clinical Impression: Renal colic on right side, Hydronephrosis, Kidney stone on right side Disposition: HOME SELF-CARE Condition: Good Instructions (If sedation given, give patient instructions): Kidney Stones (ED), Renal Colic (ED), Flank Pain (ED) Prescriptions: HYDROcodone/APAP 7.5-325MG [[place] 7.5-325] 1 tab PO Q6HR PRN 3 Days #12 tab PRN Reason: Pain Is patient prescribed a controlled substance at d/c from ED?: Yes When asked, does pt state using other controlled substances?: No If prescribed controlled substance>3 days was MAPS reviewed?: Prescribed <3 Days If opioid is for acute pain is fill amount 7 days or less?: Yes If Rx opioid, was Start Talking consent form obtained?: Yes Referrals: Damian Burris MD [Primary Care Provider] - 1-2 days Decision Date: 09/13/22 Decision Time: 17:50
[2022-09-13 12:58] LABS: Anisocytosis Slight; Basophils % (A) 0 %; Eosinophils % (A) 1 %; HCT 41.3 % (39.0-53.0); Hypochromasia Slight; Lymphocytes # (A) 1.5 k/uL (1.0-4.8); Lymphocytes % (A) 20 %; MCH 26.6 pg (25.0-35.0); MCHC 31.4 g/dL (31.0-37.0); MCV 84.7 fL (80.0-100.0); Mean Platelet Volume 7.1; Monocytes # (A) 0.5 k/uL (0-1.0); Monocytes % (A) 6 %; Neutrophils # (A) 5.5 k/uL (1.3-7.7); Neutrophils % (A) 72 %; Platelet Count 177 k/uL (150-450); RBC 4.87 m/uL (4.30-5.90); RDW 16.1 % (11.5-15.5); WBC 7.7 k/uL (3.8-10.6)
[2022-09-13 13:10] LABS: ALT 26 U/L (4-49); AST 32 U/L (17-59); African American GFR (CKD) 79 (>60 ml/min/1.73 sqM); Albumin 4.3 g/dL (3.5-5.0); Alkaline Phosphatase 123 U/L (38-126); Amylase 60 U/L (30-110); Anion Gap 10 mmol/L; Blood Urea Nitrogen 18 mg/dL (9-20); Calcium 8.8 mg/dL (8.4-10.2); Carbon Dioxide 27 mmol/L (22-30); Chloride 103 mmol/L (98-107); Creatine Kinase 158 U/L (55-170); Glucose 97 mg/dL (74-99); Lipase 171 U/L (23-300); Magnesium 1.4 mg/dL (1.6-2.3); Non-African American GFR(CKD) 69 (>60 ml/min/1.73 sqM); Potassium 3.7 mmol/L (3.5-5.1); Sodium 140 mmol/L (137-145); Total Bilirubin 0.8 mg/dL (0.2-1.3); Total Protein 8.1 g/dL (6.3-8.2)
[2022-09-13 13:43] LABS: Appearance,Urine Clear (Clear); Bilirubin,Urine Negative (Negative); Blood,Urine Small (Negative); Color,Urine Light Yellow; Glucose,Urine (UA) Negative (Negative); Ketones,Urine Negative (Negative); Leukocyte Esterase,Urine Negative (Negative); Nitrite,Urine Negative (Negative); Protein,Urine Negative (Negative); RBC,Urine 42 /hpf (0-5); Specific Gravity,Urine 1.012 (1.001-1.035); Urobilinogen,Urine <2.0 mg/dL (<2.0); WBC,Urine 2 /hpf (0-5)
--- NOTE | 2022-09-13 13:59 | XR ---
EXAMINATION TYPE: XR KUB DATE OF EXAM: 09/13/2022 COMPARISON: NONE HISTORY: Pain TECHNIQUE: Single supine KUB image of the abdomen is obtained FINDINGS: Small bowel demonstrates no evidence for dilatation or air fluid levels. Gas and fecal material is seen in non-distended colon. No convincing evidence for pneumoperitoneum. No unusual calcifications. The lung bases are clear. The osseous structures are intact. IMPRESSION: 1. Overall nonobstructive bowel gas pattern.
--- NOTE | 2022-09-13 14:51 | CT ---
EXAMINATION TYPE: CT abdomen pelvis wo con DATE OF EXAM: 09/13/2022 COMPARISON: 10/08/2021 HISTORY: right flank pain CT DLP: 542.9 mGycm Examination of the solid and hollow viscera is limited given the lack of contrast. FINDINGS: LUNG BASES: No evidence for nodule. No evidence for infiltrate. LIVER/GB: Cholecystectomy changes with some pneumobilia. No space-occupying hepatic lesion. PANCREAS: No pancreatic mass identified. No inflammatory process seen. SPLEEN: No evidence for splenomegaly. No intrasplenic lesions seen. ADRENALS: No adrenal nodules identified. No evidence for thickening. KIDNEYS: There is a 1.6 cm right UPJ calculus resulting in moderate to severe right-sided hydronephro sis and renal edema. There is perinephric stranding with perinephric fluid noted. Nonobstructing 3 mm calculus lower pole right kidney. Superimposed infection is not excluded. The left kidney is unremar kable. Urinary bladder is within normal limits. BOWEL: Appendix has a normal appearance. No evidence of bowel obstruction. No inflammatory process. Lymph nodes: No evidence for adenopathy greater than 1 cm. Abdominal aorta: Atheromatous changes seen. No evidence for aneurysm. Genital organs: Prostate calcifications seen. Other: Postoperative changes of laminectomy and fusion lumbar spine. IMPRESSION: 1.There is a 1.6 cm right UPJ calculus resulting in moderate to severe right-sided hydronephrosis and renal edema. There is perinephric stranding with perinephric fluid noted. Superimposed infection is not excluded.
[2022-09-13 17:40] VITALS: BP 178/85; PULSE 64; RESP 19
[2022-09-13] MEDS ORDERED: HYDROcodone/APAP 7.5-325MG 1 EACH TAB PO ONE (17:52)
[2022-09-13 18:07] VITALS: TEMP 97.8
== END 2022-09-13 18:07 | disposition home or self-care (01) ==
LOC: EC 12:18
DX: N13.2 Hydronephrosis with renal and ureteral calculous obstruction (principal); J44.9 Chronic obstructive pulmonary disease, unspecified; E11.9 Type 2 diabetes mellitus without complications; K21.9 Gastro-esophageal reflux disease without esophagitis; M19.90 Unspecified osteoarthritis, unspecified site; Z86.73 Personal history of transient ischemic attack (TIA), and cerebral infarction without residual deficits; Z86.718 Personal history of other venous thrombosis and embolism; Z87.891 Personal history of nicotine dependence; Z88.0 Allergy status to penicillin; Z88.8 Allergy status to other drugs, medicaments and biological substances; Z88.6 Allergy status to analgesic agent; Z91.030 Bee allergy status; Z79.51 Long term (current) use of inhaled steroids; Z79.899 Other long term (current) drug therapy
CPT/HCPCS: 36415; 93005; 80053; 82150; 82550; 83605; 83690; 83735; 84484; 85025; 81001; 74018; 74176; 99285; 96374; 96375 ×2; 96376 ×2; 96361 ×4; J2765; J1170; C9113

== ENCOUNTER 2022-09-16 15:21 | Day surgery (SDC) | payer MEDICARE ==
[~2022-09-16 15:21] MED LIST changes: +CIPROFLOXACIN/DEXTROSE PMX 400 MG in DEXTROSE/WATER 1 200ML.BAG IVPB PRN; -LACTATED RINGERS 1,000 ML IV SCH
[2022-09-16] MEDS ORDERED: LACTATED RINGERS 1,000 ML IV ONE (15:37)
[2022-09-16 15:45] VITALS: TEMP 97
[2022-09-16] MEDS ORDERED: SUCCINYLCHOLINE CHLORIDE 200 MG/10 ML VIAL IV ONE (15:59)
[2022-09-16] MEDS ORDERED: PROPOFOL 10 MG/ML 20 ML VIAL IV ONE (15:59)
[2022-09-16] MEDS ORDERED: fentaNYL (PF) 50 MCG/ML 2 ML AMP ONE (15:59)
[2022-09-16] MEDS ORDERED: MIDAZOLAM 2 MG/2 ML VIAL ONE (15:59)
[2022-09-16] MEDS ORDERED: LIDOCAINE 2% INJ 20 MG/ML (2 ML VIAL) ONE (15:59)
[2022-09-16 16:10] LABS: Glucose,Whole Blood 96 mg/dL (70-110)
[2022-09-16] MEDS ORDERED: DEXAMETHASONE SOD PHOSPHATE 4 MG/ML 1 ML VIAL IVP ONE (16:11)
--- NOTE | 2022-09-16 16:20 | P.HPIHPCON ---
History of Present Illness H&P Date: 09/16/22 Chief Complaint: Right ureteral stone This is a 67-year-old male with history of 1.6 cm right-sided UPJ stone. He is symptomatically from his stone discussed with him given the size of the stone and his symptoms I do recommend proceeding with stent insertion. Discussed with him risk and benefit of surgery detail. Discussed with him he will require ureteroscopy versus ESWL as an outpatient and stent insertion. He understood all the risk and agreed to proceed Consent for Procedure: I have explained the operation/procedure to the patient, including the risks, benefits, side effects, alternative therapies (including not receiving the proposed treatment or service), the likelihood of the patient achieving his/her goals, and potential recuperation problems for the procedure/sedation/analgesia, as well as any blood products, if indicated. I also explained to the patient the risks, benefits and side effects of the alternatives, as well as the risks related to not receiving the proposed procedure, care, treatment, or services. - Constitutional Constitutional: Denies chills, Denies fever - Cardiovascular Cardiovascular: Denies chest pain, Denies shortness of breath - Respiratory Respiratory: Denies cough, Denies 7 - Gastrointestinal Gastrointestinal: Reports abdominal pain - Genitourinary (Female) Genitourinary: Reports flank pain, Reports kidney stones, Denies dysuria Past Medical History Past Medical History: Asthma, CVA/TIA, Diabetes Mellitus, Deep Vein Thrombosis (DVT), GERD/Reflux, Osteoarthritis (OA), Skin Disorder Additional Past Medical History / Comment(s): HX OF KIDNEY STONES, CROHNS DISEASE, HX OF BLOOD CLOT RT ARM AND BEHIND RT KNEE, TIA/seizure/brain bleed 08/2016, see Dr Wright H&P, "spots of dry skin", hx anemia, september 2018 stone removed L kidney History of Any Multi-Drug Resistant Organisms: MRSA Date of last positivie culture/infection: 2006 MDRO Source:: nose Past Surgical History: Appendectomy, Back Surgery, Bowel Resection, Cholecystectomy, Heart Catheterization, Prostate Surgery Additional Past Surgical History / Comment(s): BOWEL RESECTION X 5, SPINAL SURGERIES X3, LEFT LOBECTOMY. lithotripsy, TURP, neck fusion. Past Anesthesia/Blood Transfusion Reactions: No Reported Reaction Past Psychological History: No Psychological Hx Reported Smoking Status: Former smoker Past Alcohol Use History: None Reported Past Drug Use History: None Reported - Past Family History Mother Family Medical History: Deep Vein Thrombosis (DVT) Medications and Allergies Home Medications Medication Instructions Recorded Confirmed Type levETIRAcetam [Keppra] 500 mg PO DAILY 02/22/17 09/16/22 History levETIRAcetam [Keppra] 1,000 mg PO HS 03/10/17 09/16/22 History Albuterol Sulfate [Albuterol 2 puff INHALATION RT-Q4H PRN 01/21/20 09/16/22 History Sulfate Hfa] Budesonide/Formoterol Fumarate 2 puff INHALATION RT-BID 05/08/20 09/16/22 History [Symbicort 160-4.5 Mcg Inhaler] Certolizumab Pegol [Cimzia] 400 mg SQ Q28D 07/17/21 09/16/22 History Insulin Glargine,Hum.rec.anlog 6 unit SQ HS 07/17/21 09/16/22 History [Lantus Solostar Pen] Baclofen [Lioresal] 20 mg PO BID 10/08/21 09/16/22 History Nortriptyline [Pamelor] 25 mg PO TID 10/08/21 09/16/22 History Omeprazole 20 mg PO DAILY 10/08/21 09/16/22 History Lidocaine-Prilocaine Cream [Emla 1 applic TOPICAL Q28D PRN 12/07/21 09/16/22 History Cream 2.5%/2.5%] Ipratropium-Albuterol Nebulize 3 ml INHALATION RT-QID PRN #120 12/10/21 09/16/22 Rx [Duoneb 0.5 mg-3 mg/3 ml Soln] each Rosuvastatin [Crestor] 10 mg PO HS 03/22/22 09/16/22 History HYDROcodone/APAP 7.5-325MG [[place] 1 tab PO Q6HR PRN 3 Days #12 tab 09/13/22 09/16/22 Rx 7.5-325] Isosorbide Mononitrate ER [Imdur] 30 mg PO DAILY 09/13/22 09/16/22 History Tiotropium 2.5 Mcg/Puff [Spiriva 2 puff INHALATION RT-DAILY 09/13/22 09/16/22 History Respimat 2.5 Mcg] Ketorolac [Toradol] 10 mg PO Q6HR PRN #15 tab 09/16/22 Rx Allergies Allergy/AdvReac Type Severity Reaction Status Date / Time aspirin Allergy Anaphylaxis Verified 09/16/22 15:48 bee venom protein (honey bee) Allergy Anaphylaxis Verified 09/16/22 15:48 penicillin G Allergy Rash/Hives Verified 09/16/22 15:48 venom-wasp [Wasp Venom] Allergy Anaphylaxis Verified 09/16/22 15:48 nalbuphine HCl [From Nubain] AdvReac Vomiting Verified 09/16/22 15:48 ondansetron HCl [From Zofran] AdvReac severe Verified 09/16/22 15:48 vomiting Surgical - Exam Vital Signs Temp Pulse Resp BP Pulse Ox 97.0 F L 85 16 143/70 100 09/16/22 15:41 09/16/22 15:41 09/16/22 15:41 09/16/22 15:41 09/16/22 15:41 - General no distress, no pain - Eyes normal ocular movement, no pale - ENT normal nares, normal mucosa - Respiratory normal expansion, normal respiratory effort - Abdomen Abdomen: soft, tender (Right flank) Assessment and Plan Assessment: OR for cystoscopy and right stent insertion
--- NOTE | 2022-09-16 16:40 | P.OP ---
Date of Procedure: 09/16/22 Preoperative Diagnosis: Right ureteral stone Postoperative Diagnosis: Same Procedure(s) Performed: Cystoscopy and right stent insertion Implants: 6-Irish by 26 cm stent in the right ureter Anesthesia: MUA Surgeon: Fransico Dumont Estimated Blood Loss (ml): 1 Pathology: none sent Condition: stable Disposition: PACU Indications for Procedure: This is a 67-year-old male with history of 1.6 cm right-sided UPJ stone. He is symptomatically from his stone discussed with him given the size of the stone and his symptoms I do recommend proceeding with stent insertion. Discussed with him risk and benefit of surgery detail. Discussed with him he will require ureteroscopy versus ESWL as an outpatient and stent insertion. He understood all the risk and agreed to proceed Description of Procedure: Patient brought to the operating room, general anesthesia was induced. He was prepped and draped in sterile fashion and placed in dorsal lithotomy position. Cystoscopy fitted 21-Irish sheath was inserted per urethra, cystoscopy was performed which showed no abnormality within the bladder. Attention was then carried to the right ureteral orifice. A Glidewire was advanced through the scope and up the right ureteral orifice, and the Glidewire was guided passed the stone. Next a ureteral stent was passed over the wire, the proximal curl was visualized on fluoroscopy and distal curl was visualized the cystoscope. The bladder was emptied and the case. Patient tolerated procedure well was taken to recovery in stable condition
[2022-09-16 17:06] LABS: Glucose,Whole Blood 121 mg/dL (70-110)
--- NOTE | 2022-09-16 17:09 | FL ---
Intraoperative/procedural fluoroscopic services were provided. Total fluoroscopy time is 24 seconds w ith a total of 1 submitted images to PACS. Please see the operative/procedural note for further detai ls. DAP: 2.4479 Gycm2
[2022-09-16 17:28] VITALS: RESP 18
[2022-09-16 17:46] VITALS: BP 109/62; PULSE 70
== END 2022-09-16 18:17 | disposition home or self-care (01) ==
LOC: OR 15:21
PROVIDERS: ATTEND Urology
DX: N20.1 Calculus of ureter (principal); J45.909 Unspecified asthma, uncomplicated; E11.9 Type 2 diabetes mellitus without complications; K21.9 Gastro-esophageal reflux disease without esophagitis; M19.90 Unspecified osteoarthritis, unspecified site; Z86.73 Personal history of transient ischemic attack (TIA), and cerebral infarction without residual deficits; Z90.49 Acquired absence of other specified parts of digestive tract; Z87.891 Personal history of nicotine dependence; Z79.899 Other long term (current) drug therapy
CPT/HCPCS: 52332; C1769; J2250; J0330; J1100; J3010; J0744; J2704; J2001

== ENCOUNTER → 2022-09-17 | Outpatient (CLI) | payer MEDICARE ==
--- NOTE | 2022-09-17 18:32 | US ---
EXAMINATION TYPE: US venous doppler duplex LE RT DATE OF EXAM: 09/17/2022 4:58 PM COMPARISON: NONE CLINICAL INDICATION: Male, 67 years old with history of R22.41 RT LEG EDEMA; Edema and pain right leg for 1 month SIDE PERFORMED: right TECHNIQUE: The lower extremity deep venous system is examined utilizing real time linear array sonog kristin with graded compression, doppler sonography and color-flow sonography. VESSELS IMAGED: Common Femoral Vein Deep Femoral Vein Greater Saphenous Vein * Femoral Vein Popliteal Vein Small Saphenous Vein * Proximal Calf Veins (* superficial vessels) Right Leg: No evidence of DVT IMPRESSION: Grayscale, color doppler, spectral doppler imaging performed of the deep veins of the lo wer extremities. There is normal flow, compressibility, vascular waveforms.
== END | disposition home or self-care (01) ==
LOC: RADUSWWP 16:31
DX: R22.41 Localized swelling, mass and lump, right lower limb (principal)

== ENCOUNTER → 2022-10-14 | Outpatient (CLI) | payer MEDICARE, BC ==
[2022-10-14 15:34] LABS: Basophils # (A) 0.04 X 10*3/uL (0.00-0.10); Basophils % (A) 0.6 %; Eosinophils # (A) 0.38 X 10*3/uL (0.04-0.35); Eosinophils % (A) 6.2 %; HCT 30.9 % (39.6-50.0); HGB 9.2 d/dL (12.0-15.0); Lymphocytes # (A) 2.87 X 10*3/uL (0.90-5.00); Lymphocytes % (A) 46.5 %; MCH 25.6 pg (27.0-32.0); MCHC 29.8 d/dL (32.0-37.0); MCV 86.1 FL (80.0-97.0); Mean Platelet Volume 9.9 FL (9.5-12.2); Monocytes # (A) 0.74 X 10*3/uL (0.20-1.00); NRBC Per 100 WBC 0 X 10*3/uL (0.00-0.01); Neutrophils % (A) 34.1 %; Platelet Count 187 X 10*3/uL (140-440); RBC 3.59 X 10*6/uL (4.40-5.60); RDW 15.9 % (11.5-14.5); WBC 6.17 X 10*3/uL (4.50-10.00)
[2022-10-14 15:49] LABS: Appearance,Urine Clear (Clear); Bilirubin,Urine Negative (Negative); Blood,Urine Large (Negative); Color,Urine Yellow (Yellow); Ketones,Urine Negative (Negative); Nitrite,Urine Negative (Negative); Specific Gravity,Urine 1.017 (1.001-1.030)
[2022-10-14 15:56] LABS: Bacteria,Urine None Seen (None Seen)
[2022-10-14 16:00] LABS: BUN/Creat Ratio 21.75 Ratio (12.00-20.00); Blood Urea Nitrogen 17.4 mg/dL (9.0-27.0); Calcium 8.6 mg/dL (8.7-10.3); Carbon Dioxide 26.4 mmol/L (21.6-31.8); Chloride 107 mmol/L (96-109); Glucose 88 mg/dL (70-110); Potassium 4.3 mmol/L (3.5-5.5); Sodium 143 mmol/L (135-145)
== END | disposition home or self-care (01) ==
LOC: LABWHC1 10:00 → LABPAT 10:00
PROVIDERS: ATTEND Urology
DX: Z01.812 Encounter for preprocedural laboratory examination (principal); N20.0 Calculus of kidney; R31.29 Other microscopic hematuria
CPT/HCPCS: 36415; 80048; 81001; 85025; 87086

== ENCOUNTER 2022-10-20 10:14 | Day surgery (SDC) | payer MEDICARE ==
--- NOTE | 2022-10-20 09:10 | P.HPIHPCON ---
History of Present Illness H&P Date: 10/20/22 Chief Complaint: Right-sided ureteral stone This is a 67-year-old male with history of a 1.6 cm right-sided ureteral stone. He is status post stent insertion. Presents today for right-sided ureteroscopy with holmium laser. Aware of the risk of surgery which includes but not limited to bleeding, infection, injury to the ureter. Risk of anesthesia was discussed with him in detail. He understood all the risk and agreed to proceed Consent for Procedure: I have explained the operation/procedure to the patient, including the risks, benefits, side effects, alternative therapies (including not receiving the proposed treatment or service), the likelihood of the patient achieving his/her goals, and potential recuperation problems for the procedure/sedation/analgesia, as well as any blood products, if indicated. I also explained to the patient the risks, benefits and side effects of the alternatives, as well as the risks related to not receiving the proposed procedure, care, treatment, or services. Past Medical History Past Medical History: Asthma, CVA/TIA, Diabetes Mellitus, Deep Vein Thrombosis (DVT), GERD/Reflux, Osteoarthritis (OA), Skin Disorder Additional Past Medical History / Comment(s): HX OF KIDNEY STONES, CROHNS DISEASE, HX OF BLOOD CLOT RT ARM AND BEHIND RT KNEE, TIA/seizure/brain bleed 08/2016, see Dr Wright H&P, "spots of dry skin", hx anemia, september 2018 stone removed L kidney History of Any Multi-Drug Resistant Organisms: MRSA Date of last positivie culture/infection: 2006 MDRO Source:: nose Past Surgical History: Appendectomy, Back Surgery, Bowel Resection, Cholecystectomy, Heart Catheterization, Prostate Surgery Additional Past Surgical History / Comment(s): BOWEL RESECTION X 5, SPINAL SURGERIES X3, LEFT LOBECTOMY. lithotripsy, TURP, neck fusion. Past Anesthesia/Blood Transfusion Reactions: No Reported Reaction Smoking Status: Former smoker - Past Family History Mother Family Medical History: Deep Vein Thrombosis (DVT) Medications and Allergies Home Medications Medication Instructions Recorded Confirmed Type levETIRAcetam [Keppra] 500 mg PO DAILY 02/22/17 10/14/22 History levETIRAcetam [Keppra] 1,000 mg PO HS 03/10/17 10/14/22 History Albuterol Sulfate [Albuterol 2 puff INHALATION RT-Q4H PRN 01/21/20 10/14/22 History Sulfate Hfa] Budesonide/Formoterol Fumarate 2 puff INHALATION RT-BID 05/08/20 10/14/22 History [Symbicort 160-4.5 Mcg Inhaler] Certolizumab Pegol [Cimzia] 400 mg SQ Q28D 07/17/21 10/14/22 History Insulin Glargine,Hum.rec.anlog 6 unit SQ HS 07/17/21 10/14/22 History [Lantus Solostar Pen] Baclofen [Lioresal] 20 mg PO BID 10/08/21 10/14/22 History Nortriptyline [Pamelor] 25 mg PO TID 10/08/21 10/14/22 History Omeprazole 20 mg PO DAILY 10/08/21 10/14/22 History Lidocaine-Prilocaine Cream [Emla 1 applic TOPICAL Q28D PRN 12/07/21 10/14/22 History Cream 2.5%/2.5%] Ipratropium-Albuterol Nebulize 3 ml INHALATION RT-QID PRN #120 12/10/21 10/14/22 Rx [Duoneb 0.5 mg-3 mg/3 ml Soln] each Rosuvastatin [Crestor] 10 mg PO HS 03/22/22 10/14/22 History Isosorbide Mononitrate ER [Imdur] 30 mg PO DAILY 09/13/22 10/14/22 History Tiotropium 2.5 Mcg/Puff [Spiriva 2 puff INHALATION RT-DAILY 09/13/22 10/14/22 History Respimat 2.5 Mcg] Allergies Allergy/AdvReac Type Severity Reaction Status Date / Time aspirin Allergy Anaphylaxis Verified 10/14/22 12:09 bee venom protein (honey bee) Allergy Anaphylaxis Verified 10/14/22 12:09 penicillin G Allergy Rash/Hives Verified 10/14/22 12:09 venom-wasp [Wasp Venom] Allergy Anaphylaxis Verified 10/14/22 12:09 nalbuphine HCl [From Nubain] AdvReac Vomiting Verified 10/14/22 12:09 ondansetron HCl [From Zofran] AdvReac severe Verified 10/14/22 12:09 vomiting Surgical - Exam - General no distress, no pain - Eyes normal ocular movement, no pale - ENT normal nares, normal mucosa - Respiratory normal expansion, normal respiratory effort Assessment and Plan Assessment: OR for right-sided ureteroscopy, holmium laser lithotripsy, stone basketing, stent removal versus exchange
[~2022-10-20 10:14] MED LIST changes: +DEXAMETHASONE SOD PHOSPHATE 4 MG/ML 1 ML VIAL IV ONE; +LACTATED RINGERS 1,000 ML IV SCH; +LIDOCAINE 1% (10MG/ML) FOR IV START INTRADERMA PRN; +ONDANSETRON 4 MG/2 ML VIAL IVP ONE; +fentaNYL (PF) 50 MCG/ML 2 ML AMP IV PRN
--- NOTE | 2022-10-20 10:49 | XR ---
EXAMINATION TYPE: XR KUB DATE OF EXAM: 10/20/2022 10:26 AM INDICATION: Patient age:Male; 67 years old; Reason for study: N20.0 Right Renal Stone; COMPARISON: 09/13/2022 TECHNIQUE: One radiographic view of the abdomen was obtained. FINDINGS: Right ureteral stent tips in appropriate position. There remains right renal calcification measuring up to 17 mm. There is a large amount stool within the colon. Fixation hardware in the spine appears intact. Right upper quadrant cholecystectomy clips. The bowel gas pattern is nonspecific wit hout dilated loops of small or large bowel. There is no evidence for organomegaly or pneumoperitoneum . The osseous structures are intact. Fecal material and gas are demonstrated throughout the colon and rectum. IMPRESSION: 1. Right ureteral stent with tips in appropriate position. Right renal calcification measuring up to 17 mm. 2. Nonspecific bowel gas pattern without radiographic evidence for acute process. 3. Large stool burden throughout the colon.
[2022-10-20 11:37] LABS: Glucose,Whole Blood 104 mg/dL (70-110)
[2022-10-20] MEDS ORDERED: PROPOFOL 10 MG/ML 20 ML VIAL IV ONE (11:48)
[2022-10-20] MEDS ORDERED: fentaNYL (PF) 50 MCG/ML 2 ML AMP ONE (11:48)
[2022-10-20] MEDS ORDERED: LIDOCAINE 2% INJ 20 MG/ML (2 ML VIAL) ONE (11:48)
[2022-10-20] MEDS ORDERED: SUCCINYLCHOLINE CHLORIDE 200 MG/10 ML VIAL IV ONE (11:48)
[2022-10-20] MEDS ORDERED: SODIUM CHLORIDE 0.9% 1,000 ML with ceFAZolin 4,000 MG IV ONE ×2 (11:52)
[2022-10-20 13:54] VITALS: TEMP 96.8
--- NOTE | 2022-10-20 13:59 | P.OP ---
Date of Procedure: 10/20/22 Preoperative Diagnosis: Renal stones Postoperative Diagnosis: Same Procedure(s) Performed: Cystoscopy, right ureteroscopy, holmium laser lithotripsy, stone basketing and stent exchange Implants: 6 Fr X 26 cm stent in the right ureter left on a string Anesthesia: UMA Surgeon: Fransico Dumont Estimated Blood Loss (ml): 5 Pathology: other (right renal stone) Condition: stable Disposition: PACU Indications for Procedure: This is a 67-year-old male with history of a 1.6 cm right-sided ureteral stone. He is status post stent insertion. Presents today for right-sided ureteroscopy with holmium laser. Aware of the risk of surgery which includes but not limited to bleeding, infection, injury to the ureter. Risk of anesthesia was discussed with him in detail. He understood all the risk and agreed to proceed Operative Findings: Large stone in the lower pole Description of Procedure: Patient brought to the operating room, general anesthesia was induced. He was prepped and draped in sterile fashion and placef in dorsal lithotomy position. Cystoscopy fitted 21-Russian sheath was inserted per urethra, cystoscopy was performed which showed no abnormality within the bladder. Of note patient had trilobar hyperplasia with intravesical extension. At this time the stent was grasped and removed to the meatus. Next a sensor wire was advanced through the stent the stent was removed with the wire in place. Next under fluoroscopy 1113 Russian access sheath was passed over the wire into the proximal ureter. next the flexible ureteroscope was inserted through the access sheath, renoscopy was performed showed a large stone within the lower pole. Next using the stone basket the stone was repositioned into the upper pole. Using the holmium laser the stone was dusted, sizable fragments were removed using using the stone basket and sent for analysis. Repeat renoscopy showed no additional stones in the the kidney or injury to the kidney. Pullback ureteroscopy was performed which showed no injury to the ureter or any ureteral stones, as the ureteroscope was withdrawn a sensor wire was advanced through. Next a ureteral stent was passed over the wire, the proximal curl was visualized on fluoroscopy and distal curl was visualized using the cystoscope. The bladder was emptied at the end of the case. Patient tolerated procedure well taken to recovery in stable condition stent was left on a string and taped to the patient penis
[2022-10-20 14:06] LABS: Glucose,Whole Blood 103 mg/dL (70-110)
--- NOTE | 2022-10-20 14:06 | FL ---
EXAMINATION TYPE: FL guidance operating room DATE OF EXAM: 10/20/2022 HISTORY: Fluoroscopy time Total dose area product (DAP) in uGy*m?, mGy*cm? (or similar): 0.50432 IMPRESSION: 1. Fluoroscopy time.
[2022-10-20 14:48] VITALS: RESP 20
[2022-10-20 14:57] VITALS: BP 146/77; PULSE 55
== END 2022-10-20 15:21 ==
LOC: OR 10:14
PROVIDERS: ATTEND Urology
DX: N20.0 Calculus of kidney (principal); J45.909 Unspecified asthma, uncomplicated; E11.9 Type 2 diabetes mellitus without complications; K21.9 Gastro-esophageal reflux disease without esophagitis; M19.90 Unspecified osteoarthritis, unspecified site; Z90.49 Acquired absence of other specified parts of digestive tract; Z95.5 Presence of coronary angioplasty implant and graft; Z87.891 Personal history of nicotine dependence; Z86.73 Personal history of transient ischemic attack (TIA), and cerebral infarction without residual deficits; Z79.51 Long term (current) use of inhaled steroids; Z79.899 Other long term (current) drug therapy
CPT/HCPCS: 82365; 74018; 52356; C1758 ×4; C1894; C1769 ×3; J0330; J1100; J0690; J3010; J2704; J2001

== ENCOUNTER → 2023-01-22 | Outpatient (CLI) | payer MEDICARE ==
[2023-01-22 16:28] LABS: Basophils # (A) 0.03 X 10*3/uL (0.00-0.10); Basophils % (A) 0.4 %; Eosinophils # (A) 0.11 X 10*3/uL (0.04-0.35); Eosinophils % (A) 1.5 %; HCT 35.6 % (39.6-50.0); HGB 11.1 d/dL (13.0-17.0); Lymphocytes # (A) 2.93 X 10*3/uL (0.90-5.00); MCHC 31.2 d/dL (32.0-37.0); MCV 86.6 FL (80.0-97.0); Mean Platelet Volume 9.4 FL (9.5-12.2); Monocytes # (A) 1.03 X 10*3/uL (0.20-1.00); Monocytes % (A) 13.7 %; NRBC Per 100 WBC 0 X 10*3/uL (0.00-0.01); Neutrophils # (A) 3.34 X 10*3/uL (1.80-7.70); Neutrophils % (A) 44.3 %; Platelet Count 218 X 10*3/uL (140-440); RBC 4.11 X 10*6/uL (4.40-5.60); RDW 17.2 % (11.5-14.5); WBC 7.52 X 10*3/uL (4.50-10.00)
[2023-01-22 17:01] LABS: ALT 14 U/L (10-49); AST 14 U/L (14-35); Albumin 4.2 d/dL (3.8-4.9); Albumin/Globulin Ratio 1.24 Ratio (1.60-3.17); Alkaline Phosphatase 107 U/L (41-126); BUN/Creat Ratio 25.38 Ratio (12.00-20.00); Blood Urea Nitrogen 20.3 mg/dL (9.0-27.0); Calcium 9.2 mg/dL (8.7-10.3); Carbon Dioxide 27.1 mmol/L (21.6-31.8); Chloride 102 mmol/L (96-109); Globulin 3.4 d/dL (1.6-3.3); Glucose 108 mg/dL (70-110); Potassium 4.4 mmol/L (3.5-5.5); Sodium 139 mmol/L (135-145); Total Bilirubin 0.3 mg/dL (0.3-1.2); Total Protein 7.6 d/dL (6.2-8.2)
== END | disposition home or self-care (01) ==
LOC: LABWHC1 07:27
PROVIDERS: ATTEND Internal Medicine Gastroenterology
DX: K50.90 Crohn's disease, unspecified, without complications (principal)
CPT/HCPCS: 36415; 80053; 85025

== ENCOUNTER → 2023-02-01 | Outpatient (CLI) | payer MEDICARE ==
--- NOTE | 2023-02-01 14:16 | XR ---
EXAMINATION TYPE: XR shoulder complete LT DATE OF EXAM: 02/01/2023 1:48 PM CLINICAL INDICATION:Male, 67 years old with history of M25.812; [facility] COMPARISON: None TECHNIQUE: XR shoulder complete LT; shoulder was examined in AP, internally rotated and scapular Y p rojections. FINDINGS: No evidence of acute osseous pathology, joint dislocation, or soft tissue swelling. The remaining por tions of the visualized chest are unremarkable. Mild osteophyte formation the glenoid distal clavicle and acromion. IMPRESSION: 1. No acute osseous pathology. 2. Mild shoulder osteoarthrosis.
== END | disposition home or self-care (01) ==
LOC: RADXRMAIN 13:35
PROVIDERS: ATTEND Family Medicine
DX: M19.012 Primary osteoarthritis, left shoulder (principal); M25.812 Other specified joint disorders, left shoulder

== ENCOUNTER → 2023-02-16 | Outpatient (CLI) | payer MEDICARE ==
--- NOTE | 2023-02-18 12:57 | MR ---
EXAMINATION TYPE: MR shoulder LT wo con DATE OF EXAM: 02/16/2023 COMPARISON: Outside left shoulder x-ray February 09, 2023 HISTORY: Lt shoulder pain with difficulty raising arm overhead for 5 months, possible tear TECHNIQUE: Multiplanar, multisequence imaging of the left shoulder is performed without contrast. FINDINGS: Rotator Cuff: Some increased signal in the supraspinatus and to lesser degree infraspinatus tendons. Subscapularis tendon is intact with surrounding fluid and some increased signal. Rotator cuff muscle bulk is preserved. Acromioclavicular Joint: Mild to moderate narrowing with moderate capsular hypertrophy. Subchondral c ystic changes are present. Mass effect or loss of underlying fat plane noted coronal image 12 and sag ittal image 19 for reference. Glenohumeral Joint: Small size joint effusion. Labrum: Increased signal superior labrum suspicious for tearing near coronal image 13 . Biceps Tendon: The long head of biceps is in normal location within bicipital groove. Increased signa l near the labral anchor is present involving the intracapsular portion sagittal images 17-19 for ref erence. Bone marrow signal: Some heterogeneity consistent with red marrow reconversion. Other: No additional significant abnormality is appreciated. IMPRESSION: 1. Tendinosis of the rotator cuff tendons. 2. Partial tearing of the intracapsular portion of the long head of biceps tendon near the labral anc hor. Superior labral tearing. 3. Degenerative changes are present as detailed above. Underlying impingement suspected. Correlate cl inically.
== END | disposition home or self-care (01) ==
LOC: RADMRIMAIN 05:41
PROVIDERS: ATTEND Orthopaedic Surgery
DX: M67.814 Other specified disorders of tendon, left shoulder (principal); M19.012 Primary osteoarthritis, left shoulder; M75.102 Unspecified rotator cuff tear or rupture of left shoulder, not specified as traumatic

== ENCOUNTER 2023-04-08 07:20 | Day surgery (SDC) | payer MEDICARE ==
[2023-04-01 13:03] VITALS: BMI 27.2
--- NOTE | 2023-04-07 22:01 | HP ---
HISTORY AND PHYSICAL DATE OF SURGERY: 04/08/2023. HISTORY OF PRESENT ILLNESS: Ky Hickey is a 67-year-old gentleman, who was seen with progressive left shoulder pain after having treatment options discussed. He elected to proceed with left shoulder arthroscopy. Consent obtained. Cardiac clearance provided by Dr. Wade. PAST MEDICAL HISTORY: Cardiovascular disease, insulin-dependent diabetes, hypertension, hyperlipidemia, asthma. PAST SURGICAL HISTORY: Cholecystectomy, colon resection, spinal fusion. DAILY MEDICATIONS: 1. Lantus insulin. 2. Rosuvastatin. 3. Tylenol. 4. Albuterol inhaler. 5. Protonix. 6. Symbicort. ALLERGIES: Aspirin, penicillin, Zofran, . SOCIAL HISTORY: He denies tobacco use. PHYSICAL EVALUATION OF THE LEFT SHOULDER: Flexion is 100 degrees, abduction is 90 degrees, external rotation 30 degrees with pain and weakness, tenderness along the anterolateral acromion at rotator cuff insertion site. Impingement positive at 70 degrees. Cross-body adduction sign is positive. Drop-arm sign is positive. Distal neurovascular exam is intact. IMAGING STUDIES: Left shoulder radiographs revealed a type 2 acromion, evidence for acromioclavicular joint osteoarthritis and cystic changes of the tuberosity. MRI of left shoulder revealed a rotator cuff tendon tear, labral tear, biceps tear, and impingement. IMPRESSION: 1. Left shoulder impingement with rotator cuff partial tear. 2. Left shoulder bicipital tendinitis and partial tear. 3. Left shoulder labral tear. 4. Hyperlipidemia. 5. Hypertension. 6. Cardiovascular disease. 7. Asthma. PLAN: Left shoulder arthroscopy with subacromial decompression, biceps tenodesis, possible rotator cuff repair and debridement labral tear. MMODL / IJN: [id number] /
[2023-04-08] MEDS ORDERED: LACTATED RINGERS 1,000 ML IV SCH (07:38)
[2023-04-08] MEDS ORDERED: DEXAMETHASONE SOD PHOSPHATE 4 MG/ML 1 ML VIAL IV ONE (07:38)
[2023-04-08] MEDS ORDERED: LIDOCAINE 1% (10MG/ML) FOR IV START INTRADERMA PRN (07:38)
[2023-04-08] MEDS ORDERED: MIDAZOLAM 2 MG/2 ML VIAL IV PRN (07:38)
[2023-04-08] MEDS ORDERED: HYDROmorphone 0.5 MG/0.5 ML SYRINGE IVP PRN (07:38)
[2023-04-08 08:13] LABS: Glucose,Whole Blood 105 mg/dL (70-110)
[2023-04-08] MEDS ORDERED: ONDANSETRON 4 MG/2 ML VIAL ONE (08:29)
[2023-04-08] MEDS ORDERED: MIDAZOLAM 2 MG/2 ML VIAL IVP ONE (08:44)
[2023-04-08] MEDS ORDERED: DEXAMETHASONE SOD PHOSPHATE 4 MG/ML 1 ML VIAL IVP ONE (08:45)
[2023-04-08] MEDS ORDERED: ROPIVACAINE 5 MG/ML 30 ML VIAL ONE (09:41)
[2023-04-08] MEDS ORDERED: LIDOCAINE 1% INJ 10MG/ML (20 ML MDV) ONE (09:41)
[2023-04-08] MEDS ORDERED: ROCURONIUM 10 MG/ML (5 ML VIAL) IV ONE (09:41)
[2023-04-08] MEDS ORDERED: PROPOFOL 10 MG/ML 20 ML VIAL IV ONE (09:41)
[2023-04-08] MEDS ORDERED: DEXAMETHASONE SOD PHOSPHATE 4 MG/ML 1 ML VIAL ONE (09:41)
[2023-04-08] MEDS ORDERED: MIDAZOLAM 2 MG/2 ML VIAL ONE (09:41)
[2023-04-08] MEDS ORDERED: fentaNYL (PF) 50 MCG/ML 2 ML AMP ONE (09:41)
[2023-04-08] MEDS ORDERED: SUCCINYLCHOLINE CHLORIDE 200 MG/10 ML VIAL IV ONE (09:41)
--- NOTE | 2023-04-08 11:16 | P.OP ---
Date of Procedure: 04/08/23 Preoperative Diagnosis: Left shoulder impingement Postoperative Diagnosis: 1. Left shoulder rotator cuff tear 2. Left shoulder partial biceps tendon tear/bicipital tendinitis 3. Left shoulder impingement Procedure(s) Performed: 1. Left shoulder arthroscopic rotator cuff repair 2. Left shoulder arthroscopic biceps tenodesis 3. Left shoulder arthroscopic subacromial decompression Implants: 2Arthrex 4.75 swivel lock anchors Anesthesia: GETA, regional (Interscalene block) Surgeon: Lan Titus Music Composer #1: Myles Chung Estimated Blood Loss (ml): 8 Pathology: none sent Condition: stable Disposition: PACU Indications for Procedure: 67-year-old patient seen with progressive left shoulder pain. After having treatment options discussed, he elected to proceed with arthroscopy. Operative Findings: See description of procedure Description of Procedure: Patient underwent an interscalene block by department of anesthesia. The patient was then taken to the operative suite. The patient underwent a general anesthetic by the department of anesthesia. The patient was placed into a lateral position and secured. There was appropriate padding of the bony pro minence. Left shoulder was then prepped and draped in normal sterile orthopedic fashion. We placed the extremity in 10 pounds of longitudinal traction. A posterior incision was now made for a posterior working portal site. The trocar and cannula were inserted into the glenohumeral joint. Arthroscopy was initiated. Spinal needle was now inserted anteriorly, to ascertain the anterior working portal site. An incision was now made in that area, a trocar was inserted followed by a probe. The labrum was found to be stable. There was some partial tearing long head biceps tendon with hyperemia consistent with bicipital tendinitis. There were grade 1 chondromalacia changes of the glenohumeral joint. At this point I decided to proceed with arthroscopic biceps tenodesis. I placed a cannula through the anterior portal site. I passed a looped and tacked stitch through the biceps tendon. I released the biceps tendon from the superior labrum. With the assistance of Orion COX a partial hole at the interval for insertion of an anchor. I passed the suture limbs through the eyelet Arthrex 4.75 swivel lock anchor. I placed the eyelet and 4 prepunched hole. I held in position while Orion [employer] tension the suture and the pina the anchor with good fixation noted. Residual suture limb was clipped. We had a stable appearing biceps tenodesis. Instruments were now removed from the glenohumeral joint. Utilizing the posterior working portal site, the trocar and cannula were inserted into the subacromial space. Arthroscopy initiated. I made an incision 2 fingerbreadths lateral to the acromion. I introduced my trocar followed by my ArthroCare ablator. I now began ablating thick subacromial bursal tissue, which exposed the undersurface of the anterior acromion. There was diminished subacromial space. There was a very prominent anterior acromion. A motorized bur was introduced and a subacromial decompression was performed. I also excised some osteophytes off the inferior aspect of the distal clavicle. The AC joint was visualized and noted to be moderately arthritic, I did not think enough toward a Coretta procedure. I now turned my attention to the rotator cuff tend on. I noted a full-thickness perforation along the distal supraspinatus. I debrided the margins getting down to stable tendon tissue. The defect/tear measuring approximately 1.5 cm and was freely mobile over the footprint. I abraded the footprint with a motorized bur. I passed 3 everted mattress sutures through good bites of rotator cuff tendon with the assistance of Orion COX. A partial hole in the footprint area for insertion of an anchor. All 6 limbs of suture were passed through the eyelet of an Arthrex 4.75 swivel lock anchor. I placed the eyelet into the prepunched hole. I held it in position while Orion [employer] tension all 6 limbs of suture and deployed the anchor with good fixation noted. All residual suture limbs were now clipped. We had good compression of the tendon along the entire footprint. Instruments now removed from the portal sites. All portal sites were approximated with nylon suture. Sterile dressings were applied followed by a shoulder sling. Myles COX assisted in this complex case. The patient was awakened, transferred to a bed, and taken to recovery in stable condition.
[2023-04-08 11:27] VITALS: TEMP 97
[2023-04-08 11:51] VITALS: RESP 16
[2023-04-08 13:02] VITALS: BP 147/84; PULSE 63
--- NOTE | 2023-04-09 11:38 | P.ANPRN ---
Procedure Note - Anesthesia - Nerve Block Performed Left Interscalene Single Time Out Performed: Yes Date of Procedure: 04/08/23 Procedure Start Time: :44 Procedure Stop Time: 08:49 Location of Patient: PreOp Indication: Acute Post-Operative Pain, Requested by Surgeon Sedation Type: Sedate with meaningful contact maintained Preparation: Sterile Prep Position: Sitting Needle Types: Pajunk Needle Gauge: 21 Ultrasound used to visualize needle placement: Yes Ultrasound used to observe medication spread: Yes Blood Aspirated: No Pain Paresthesia on Injection Noted: No Resistance on Injection: Normal Image Stored and Saved: Yes Events: Uneventful and Well Tolerated (Ropivacaine 0.5% 20 mL plus dexamethasone 4 mg)
== END 2023-04-08 13:04 | disposition home or self-care (01) ==
LOC: OR 07:20
PROVIDERS: ATTEND Orthopaedic Surgery
DX: S46.212A Strain of muscle, fascia and tendon of other parts of biceps, left arm, initial encounter (principal); M75.102 Unspecified rotator cuff tear or rupture of left shoulder, not specified as traumatic; M75.22 Bicipital tendinitis, left shoulder; I10 Essential (primary) hypertension; I25.10 Atherosclerotic heart disease of native coronary artery without angina pectoris; E11.9 Type 2 diabetes mellitus without complications; E78.5 Hyperlipidemia, unspecified; K50.90 Crohn's disease, unspecified, without complications; J45.909 Unspecified asthma, uncomplicated; G89.18 Other acute postprocedural pain; Z86.73 Personal history of transient ischemic attack (TIA), and cerebral infarction without residual deficits; Z90.49 Acquired absence of other specified parts of digestive tract; Z98.890 Other specified postprocedural states; Z79.51 Long term (current) use of inhaled steroids; Z79.4 Long term (current) use of insulin; Z79.899 Other long term (current) drug therapy; Z88.6 Allergy status to analgesic agent; Z88.0 Allergy status to penicillin; Z88.8 Allergy status to other drugs, medicaments and biological substances; X58.XXXA Exposure to other specified factors, initial encounter
CPT/HCPCS: 29828; 29827; 29826; 64415; C1713 ×3; J2250; J0330; J1100; J0690; J2001; J3010; J2795; J2704

== ENCOUNTER 2023-09-27 07:49 | Day surgery (SDC) | payer MEDICARE ==
--- NOTE | 2023-09-26 20:40 | HP ---
HISTORY AND PHYSICAL DATE OF SCHEDULED SURGERY: 09/27/2023. HISTORY OF PRESENT ILLNESS: Ky Hickey is a 68-year-old gentleman seen with persistent left shoulder adhesive capsulitis with history of previous arthroscopy. We discussed options. He elected to proceed with manipulation under anesthesia left shoulder with steroid injection. Consent was obtained. PAST MEDICAL HISTORY: Asthma, sov-thffoej-mptowjrzy diabetes, hypertension. PAST SURGICAL HISTORY: Cholecystectomy, colon resection, spinal fusion, lobectomy. DAILY MEDICATIONS: 1. Albuterol. 2. Protonix. 3. Spiriva inhaler. 4. Humalog insulin. 5. Rosuvastatin. 6. Hydrocodone. ALLERGIES: Aspirin, penicillin, Zofran. SOCIAL HISTORY: Denies tobacco use. PHYSICAL EVALUATION OF LEFT SHOULDER: He has well-healed arthroscopic portal sites. Flexion is 100 degrees. Abduction is 80 degrees. External rotation is 0 degrees. His distal neurovascular exam is intact. IMAGING STUDIES: Radiographs of the left shoulder revealed stable conversion to a flat acromion. IMPRESSION: 1. Left shoulder adhesive capsulitis. 2. History of previous left shoulder arthroscopy. 3. Insulin-dependent diabetes. 4. Hyperlipidemia. 5. Hypertension. PLAN: Manipulation under anesthesia left shoulder with steroid injection. MMODL / IJN: [id number] /
[2023-09-27] MEDS ORDERED: DEXAMETHASONE SOD PHOSPHATE 4 MG/ML 1 ML VIAL IV ONE (07:59)
[2023-09-27] MEDS ORDERED: MIDAZOLAM 2 MG/2 ML VIAL IV PRN (07:59)
[2023-09-27 08:41] LABS: Glucose,Whole Blood 131 mg/dL (70-110)
[2023-09-27] MEDS: MIDAZOLAM 2 MG/2 ML VIAL IVP ONE (08:48)
[2023-09-27] MEDS: IV FLUID CONTINUATION 1,000 ML IV ONE (08:51)
[2023-09-27] MEDS: LACTATED RINGERS 1,000 ML IV SCH (08:53)
[2023-09-27] MEDS ORDERED: fentaNYL (PF) 50 MCG/ML 2 ML AMP ONE (09:42)
[2023-09-27] MEDS ORDERED: PROPOFOL 10 MG/ML 20 ML VIAL IV ONE (09:42)
[2023-09-27] MEDS ORDERED: KETOROLAC 15 MG/ML 1 ML VIAL ONE (09:42)
[2023-09-27] MEDS ORDERED: BUPIVACAINE (PF) 0.25% 10 ML VIAL INTRAARTIC ONE (09:50)
--- NOTE | 2023-09-27 09:53 | P.OP ---
Date of Procedure: 09/27/23 Preoperative Diagnosis: Left shoulder adhesive capsulitis Postoperative Diagnosis: Left shoulder adhesive capsulitis Procedure(s) Performed: Manipulation under anesthesia left shoulder with steroid injection Anesthesia: MAC Surgeon: Lan Titus Estimated Blood Loss (ml): 0 Pathology: none sent Condition: stable Disposition: PACU Indications for Procedure: 68-year-old gentleman seen with persistent left shoulder adhesive capsulitis. After having treatment options discussed, he elected to proceed with manipulation under anesthesia left shoulder with steroid injection. Operative Findings: See description of procedure Description of Procedure: Patient was taken to a monitored anesthesia area. He underwent IV sedation by the department anesthesia. When sufficient anesthesia was noted I performed a manipulation of the left shoulder achieving full range of motion with audible tearing of the adhesions. The anterior aspect of the shoulder was not prepped and draped in normal orthopedic fashion. I injected a solution of 1 cc Depo- Medrol and 3 cc quarter percent plain Marcaine in the glenohumeral joint under sterile technique. A sterile Band-Aid was applied. The patient was awakened having tolerated procedure well.
[2023-09-27] MEDS: methylPREDNISolone ACETATE 80 MG/ML 1 ML VIAL INTRAARTIC STA (09:55)
[2023-09-27 10:13] VITALS: TEMP 97.2
[2023-09-27] MEDS: HYDROmorphone 0.5 MG/0.5 ML SYRINGE IVP PRN (10:14)
[2023-09-27 10:41] VITALS: RESP 20
[2023-09-27 11:05] VITALS: BP 112/60; PULSE 76
== END 2023-09-27 11:08 | disposition home or self-care (01) ==
LOC: OR 07:49
PROVIDERS: ATTEND Orthopaedic Surgery
DX: M75.02 Adhesive capsulitis of left shoulder (principal); E11.9 Type 2 diabetes mellitus without complications; I10 Essential (primary) hypertension; J44.89 Other specified chronic obstructive pulmonary disease; I25.10 Atherosclerotic heart disease of native coronary artery without angina pectoris; E78.5 Hyperlipidemia, unspecified; G40.909 Epilepsy, unspecified, not intractable, without status epilepticus; K21.9 Gastro-esophageal reflux disease without esophagitis; Z79.4 Long term (current) use of insulin; Z79.51 Long term (current) use of inhaled steroids; Z90.49 Acquired absence of other specified parts of digestive tract; Z88.0 Allergy status to penicillin; Z88.6 Allergy status to analgesic agent; Z88.8 Allergy status to other drugs, medicaments and biological substances; Z79.899 Other long term (current) drug therapy; Z86.718 Personal history of other venous thrombosis and embolism; Z86.73 Personal history of transient ischemic attack (TIA), and cerebral infarction without residual deficits; Z79.02 Long term (current) use of antithrombotics/antiplatelets; Z79.1 Long term (current) use of non-steroidal anti-inflammatories (NSAID); Z98.890 Other specified postprocedural states
CPT/HCPCS: 23700; J2250; J3010; J1885; J2704; J1170; J1010

== ENCOUNTER → 2023-11-04 | Outpatient (CLI) | payer MEDICARE ==
[2023-11-04 10:37] LABS: Eosinophils % (A) 2.2 %; HCT 38.3 % (39.6-50.0); Lymphocytes % (A) 49.6 %; MCH 27.8 pg (27.0-32.0); MCHC 31.3 g/dL (32.0-37.0); MCV 88.9 FL (80.0-97.0); Mean Platelet Volume 8.9 FL (9.5-12.2); Monocytes % (A) 10.3 %; NRBC Per 100 WBC 0 X 10*3/uL (0.00-0.01); Neutrophils % (A) 36.2 %; Platelet Count 203 X 10*3/uL (140-440); RBC 4.31 X 10*6/uL (4.40-5.60); RDW 15.9 % (11.5-14.5); WBC 5.85 X 10*3/uL (4.50-10.00)
[2023-11-04 10:38] LABS: Basophils # (A) 0.04 X 10*3/uL (0.00-0.10); Basophils % (A) 0.7 %; Eosinophils # (A) 0.13 X 10*3/uL (0.04-0.35); Neutrophils # (A) 2.12 X 10*3/uL (1.80-7.70)
[2023-11-04 10:50] LABS: ALT 20 U/L (10-49); AST 21 U/L (14-35); Albumin 4.1 g/dL (3.8-4.9); Albumin/Globulin Ratio 1.17 Ratio (1.60-3.17); Alkaline Phosphatase 131 U/L (41-126); BUN/Creat Ratio 17.86 Ratio (12.00-20.00); Blood Urea Nitrogen 12.5 mg/dL (9.0-27.0); Calcium 8.8 mg/dL (8.7-10.3); Carbon Dioxide 22.5 mmol/L (21.6-31.8); Chloride 103 mmol/L (96-109); Globulin 3.5 g/dL (1.6-3.3); Glucose 116 mg/dL (70-110); Sodium 137 mmol/L (135-145); Total Bilirubin 0.4 mg/dL (0.3-1.2); Total Protein 7.6 g/dL (6.2-8.2)
== END | disposition home or self-care (01) ==
LOC: LABWHC1 07:15
PROVIDERS: ATTEND Internal Medicine Gastroenterology
DX: K50.90 Crohn's disease, unspecified, without complications (principal)
CPT/HCPCS: 36415; 80053; 85025

== ENCOUNTER → 2023-11-09 | Outpatient (CLI) | payer MEDICARE | END | disposition home or self-care (01) | LOC: LABWHC1 10:02 | PROVIDERS: ATTEND Family Medicine | DX: E11.9 Type 2 diabetes mellitus without complications (principal); R53.82 Chronic fatigue, unspecified | CPT/HCPCS: 36415; 83036; 84402; 84403; 84443 ==

== ENCOUNTER → 2024-03-02 | Outpatient (CLI) | payer MEDICARE ==
[2024-03-02 10:29] LABS: Basophils # (A) 0.05 X 10*3/uL (0.00-0.10); Basophils % (A) 0.9 %; Eosinophils # (A) 0.21 X 10*3/uL (0.04-0.35); Eosinophils % (A) 3.6 %; HCT 38.7 % (39.6-50.0); HGB 12.1 g/dL (13.0-17.0); Lymphocytes # (A) 2.73 X 10*3/uL (0.90-5.00); Lymphocytes % (A) 47.4 %; MCH 28.2 pg (27.0-32.0); MCHC 31.3 g/dL (32.0-37.0); MCV 90.2 FL (80.0-97.0); Mean Platelet Volume 9.8 FL (9.5-12.2); Monocytes # (A) 0.73 X 10*3/uL (0.20-1.00); Monocytes % (A) 12.7 %; NRBC Per 100 WBC 0 X 10*3/uL (0.00-0.01); Neutrophils % (A) 34.7 %; Platelet Count 162 X 10*3/uL (140-440); RBC 4.29 X 10*6/uL (4.40-5.60); RDW 15.8 % (11.5-14.5); WBC 5.76 X 10*3/uL (4.50-10.00)
[2024-03-02 10:38] LABS: ALT 23 U/L (10-49); AST 23 U/L (14-35); Albumin 3.9 g/dL (3.8-4.9); Albumin/Globulin Ratio 1.22 Ratio (1.60-3.17); Alkaline Phosphatase 105 U/L (41-126); BUN/Creat Ratio 19.88 Ratio (12.00-20.00); Blood Urea Nitrogen 15.9 mg/dL (9.0-27.0); Calcium 8.8 mg/dL (8.7-10.3); Carbon Dioxide 25.2 mmol/L (21.6-31.8); Chloride 103 mmol/L (96-109); Globulin 3.2 g/dL (1.6-3.3); Glucose 136 mg/dL (70-110); Potassium 4.4 mmol/L (3.5-5.5); Sodium 138 mmol/L (135-145); Total Bilirubin 0.4 mg/dL (0.3-1.2); Total Protein 7.1 g/dL (6.2-8.2)
== END | disposition home or self-care (01) ==
LOC: LABWHC1 07:02
PROVIDERS: ATTEND Internal Medicine Gastroenterology
DX: K50.90 Crohn's disease, unspecified, without complications (principal)
CPT/HCPCS: 36415; 80053; 85025

== ENCOUNTER → 2024-05-09 | Outpatient (CLI) | payer MEDICARE ==
[2024-05-09 15:44] LABS: BUN/Creat Ratio 14.67 Ratio (12.00-20.00); Blood Urea Nitrogen 13.2 mg/dL (9.0-27.0); Calcium 8.6 mg/dL (8.7-10.3); Carbon Dioxide 22.9 mmol/L (21.6-31.8); Chloride 102 mmol/L (96-109); Glucose 131 mg/dL (70-110); Potassium 3.8 mmol/L (3.5-5.5); Sodium 138 mmol/L (135-145)
== END | disposition home or self-care (01) ==
LOC: LABWHC1 10:45
PROVIDERS: ATTEND Family Medicine
DX: I10 Essential (primary) hypertension (principal); E11.9 Type 2 diabetes mellitus without complications; R04.0 Epistaxis
CPT/HCPCS: 36415; 80048; 83036; 85025

== ENCOUNTER → 2024-05-15 | Outpatient (CLI) | payer MEDICARE ==
[2024-05-15 19:40] LABS: Basophils # (A) 0.04 X 10*3/uL (0.00-0.10); Basophils % (A) 0.6 %; Eosinophils # (A) 0.17 X 10*3/uL (0.04-0.35); Eosinophils % (A) 2.4 %; HCT 41.1 % (39.6-50.0); HGB 12.7 g/dL (13.0-17.0); Lymphocytes % (A) 38.6 %; MCH 28.7 pg (27.0-32.0); MCHC 30.9 g/dL (32.0-37.0); Mean Platelet Volume 9.5 FL (9.5-12.2); Monocytes # (A) 0.71 X 10*3/uL (0.20-1.00); Monocytes % (A) 10.1 %; NRBC Per 100 WBC 0 X 10*3/uL (0.00-0.01); Neutrophils # (A) 3.33 X 10*3/uL (1.80-7.70); Neutrophils % (A) 47.6 %; Platelet Count 200 X 10*3/uL (140-440); RBC 4.42 X 10*6/uL (4.40-5.60); RDW 16.5 % (11.5-14.5)
== END | disposition home or self-care (01) ==
LOC: LABWHC1 14:56
PROVIDERS: ATTEND Family Medicine
DX: R04.0 Epistaxis (principal)
CPT/HCPCS: 36415; 85025

== ENCOUNTER → 2024-06-09 | Outpatient (CLI) | payer MEDICARE ==
--- NOTE | 2024-06-10 07:45 | MR ---
INDICATION: Patient age:Male; 68 years old; Reason for study: M48.061 SPINAL STENOSIS, LUMBAR REGION; [facility]. COMPARISONS: CT abdomen pelvis 09/13/2022. TECHNIQUE: Multi planar, multi sequence imaging was performed utilizing: T1-weighted, T2-weighted, a nd turbo inversion recovery imaging of the lumbar spine. The patient was not given contrast. FINDINGS: The lumbar vertebral bodies do have preserved heights and alignment. Postsurgical changes from fusion at L5-S1 with bilateral pedicle screws and rods. No significant disc desiccation is ident ified. Tiny Schmorl's nodes involving the inferior endplate of the 11 and T12 vertebral bodies. No ab normal STIR signal. The conus medullaris and the distal spinal cord do appear unremarkable with rega rds to their signal intensity and morphology. T12-L1: No significant disc pathology is identified. The spinal canal and neural foramen are patent L1-L2: No significant disc pathology is identified. The spinal canal and neural foramen are patent. L2-L3: No significant disc pathology is identified. The spinal canal and neural foramen are patent. L3-L4: Mild broad-based disc bulge with ligamentum flavum buckling and bilateral facet arthropathy c ontribute to moderate central canal stenosis. Prominent posterior epidural fat. Mild left and moderat e right neural foraminal stenosis. L4-L5: Postsurgical changes. Mild broad-based disc bulge with minimal effacement of the anterior thec al sac. No significant central canal stenosis. No significant neural foraminal stenosis. L5-S1: Postsurgical changes. No significant central canal or neural foraminal stenosis. Other significant findings: None. IMPRESSION: 1. Postsurgical changes from posterior fusion L5-S1. Hardware appears intact. 2. Broad-based disc bulge with ligamentum flavum buckling and bilateral facet arthropathy at L3-L4 c ontributing to moderate central canal stenosis. There is mild left and moderate right neural foramina l stenosis at this level. No other significant central canal or neural foraminal stenosis at the othe r lumbar levels. [facility], , 06/10/2024 7:43 AM
== END | disposition home or self-care (01) ==
LOC: RADMRIMAIN 17:39
PROVIDERS: ATTEND Orthopaedic Surgery
DX: M51.369 Other intervertebral disc degeneration, lumbar region without mention of lumbar back pain or lower extremity pain (principal); M47.816 Spondylosis without myelopathy or radiculopathy, lumbar region; M99.73 Connective tissue and disc stenosis of intervertebral foramina of lumbar region; Z98.1 Arthrodesis status
CPT/HCPCS: 72148

== ENCOUNTER → 2024-07-10 | Outpatient (CLI) | payer MEDICARE ==
[2024-07-10 12:45] VITALS: BP 117/64; PULSE 67; RESP 16
--- NOTE | 2024-07-10 15:24 | P.PAINPG ---
PQRS Measure Charge Sheet Comment: HISTORY OF PRESENT ILLNESS: A 68 yr old male as a referral from Nabeel RUIZ presents today w severe and chronic LBp > 1 yr secondary to L4-S1 posterior fusion syndrome for evaluation. Pt states pain level is provoked at 9 /10 in intensity, constant, localized in the lumbar spine, predominantly axial, sharp in character w occasional shooting pain towards the RLE and toes. Pain is provoked by bending. Pain is alleviated by physician guided home stretches daily since Mar 2023, heat, ice, medication, topical, repositioning and rest . Oswestry axial pain score at 33. PMH: OA, Asthma, CVA, NIDDM II, DVT, GERD, Nephrolithiasis, Eczema PSH: L Shoulder Arthroscopy (2022), L Lithotripsy (2018), Appendectomy, Cervical Fusion, Lumbar Surgery x3, Bowel Resection x5, Cholecystectomy, Heart Catheterization, L Lobectomy, TURP SH: Former tobacco user, No ETOH abuse, No illicit drug use FH: Mo- DVT All: See list Meds: See list incl Tyl, Lidocaine REVIEW OF ORGAN SYSTEMS: CONSTITUTIONAL: No fevers or chills. No recent weight loss. NEUROLOGICAL: + numbness and tingling along the distal extremities. No seizure disorders or headaches. MUSCULOSKELETAL: + pain PSYCHIATRIC: Denies current depression or suicidal thoughts. Physical Examinations : Constitutional : Cooperative , not in acute distress . Neurologic : Cranial nerve II to XII intact. No focal neurological deficits. Psychiatric : alert & oriented x 3. Matching mood & appropriate affect. Judgment & insight intact. Musculoskeletal : Cervical Spine Motor strength in the deltoid and biceps: Normal right side. Normal Left side Motor strength biceps and the wrist extensors: Normal right side . Normal left side Motor strength in the triceps muscle: Normal right side. Normal left side Deep tendon reflexes: Normal at the biceps. Normal at Brachioradialis. Normal at triceps Vertebral body tenderness to deep palpation over Cervical facet loading test: positive bilaterally Spurling test: positive bilaterally Neck distraction test: positive bilaterally Ric sign: positive bilaterally Lumbar spine +Incisional scars intact Motor strength lower extremities ,thigh and legs 5/5 Right side , 5/5 Left side Deep tendon reflexes : Normal Knee J erk. Normal Ankle Jerk Vertebral body tenderness over Garcia Test positive BL L5-S1 Lumbar facet Loading Test: positive Right / positive Left Range of motion of the lumbar spine Flexion 30 degrees, extension 10 degrees Straight Leg Raise test: Left/ Right positive at < 30 degrees Gill test: positive right / positive left. Severe tenderness over the Sacroiliac joint on the Right / Left sides Gaenslen test: positive bilaterally Seated flexion test: positive bilaterally. Sacral spine : Severe tenderness over the Sacroiliac joint: right side / left side Range of motion: Flexion of the lumbar spine <60 degrees Range of motion: Extension of the lumbar spine <20 degrees Gaenslen's Test positive Gill test: positive right side / left side Thigh Thrust Test Sacral Thrust Test Imaging: CT non contrast abd/ pelvis from 06/09/24 w incidental findings of lumbar spine reviewed Assessment/ Plan : L4-S1 posterior fusion syndrome Recommendation of Caudal KRIS w Lysis #1. May also benefit from KRIS L3-L4. Risks, benefits of procedure discussed and patient verbalized understanding. Admits to anti- coagulant use or medical history of diabetes. Protocol for discontinuation/ continuation of medications marsha procedure discussed. All questions answered. I have spent greater than 30 minutes on patient care today. Dr Russ was available by phone for the evaluation of this patient. The time was used to review the medical records including relevant urine studies and Prescription history (MAPs), review of the available imaging, evaluation and examination of the patient, coordination of care with the medical staff and if applicable referring physicians, as well as creation of the medical record PQRS Narrative: Smoking Status Former smoker Narcotic Agreement Date Signed 05/08/13 Home Medications: Ambulatory Orders levETIRAcetam [Keppra] 500 mg PO QAM 02/22/17 levETIRAcetam [Keppra] 1,000 mg PO HS 03/10/17 Albuterol Sulfate [Albuterol Sulfate Hfa] 2 puff INHALATION RT-Q4H PRN 01/21/20 Budesonide/Formoterol Fumarate [Symbicort 160-4.5 Mcg Inhaler] 2 puff INHALATION RT-BID 05/08/20 Certolizumab Pegol [Cimzia] 400 mg SQ Q28D 07/17/21 Insulin Glargine,Hum.rec.anlog [Lantus Solostar Pen] 25 unit SQ HS 07/17/21 Nortriptyline [Pamelor] 25 mg PO TID 10/08/21 Omeprazole 20 mg PO DAILY 10/08/21 Rosuvastatin [Crestor] 10 mg PO HS 03/22/22 Tiotropium 2.5 Mcg/Puff [Spiriva Respimat 2.5 Mcg] 2 puff INHALATION RT-DAILY 09/13/22 INSULIN LISPRO (humaLOG) [humaLOG] 0 units SQ AC-TID PRN 04/01/23 Promethazine [Phenergan] 25 mg PO BID PRN 04/01/23 Clopidogrel [Plavix] 75 mg PO DAILY 09/24/23 INSULIN LISPRO (HumaLOG) [humaLOG] 6 units SQ DIRECTED 09/24/23 HYDROcodone/APAP 5-325MG [Gorham 5-325] 1 tab PO Q6HR PRN #12 tab 09/27/23 Isosorbide Mononitrate ER [Imdur] 30 mg PO DAILY 09/27/23 diazePAM [Valium] 5 mg PO DAILY 1 Days #2 tab 07/10/24 Controlled Substance Measures - Controlled Substance Measures Is patient prescribed a controlled substance at discharge?: Yes When asked, does pt state using other controlled substances?: No If prescribed controlled substance>3 days was MAPS reviewed?: Prescribed <3 Days
== END ==
LOC: PNWHC3 11:53
PROVIDERS: ATTEND Specialist
DX: M48.061 Spinal stenosis, lumbar region without neurogenic claudication (principal); M43.27 Fusion of spine, lumbosacral region; Z87.891 Personal history of nicotine dependence; Z91.030 Bee allergy status; Z88.0 Allergy status to penicillin; Z88.6 Allergy status to analgesic agent; Z88.8 Allergy status to other drugs, medicaments and biological substances; Z91.038 Other insect allergy status
CPT/HCPCS: 99211

== ENCOUNTER → 2024-08-01 | Outpatient (CLI) | payer MEDICARE ==
[2024-08-01 14:58] LABS: ALT 16 U/L (10-49); AST 19 U/L (14-35); Chol/HDL Ratio 3.81 Ratio; LDL Cholesterol,Calculated 5.5 mg/dL (0.0-131.0)
== END | disposition home or self-care (01) ==
LOC: LABWHC1 09:21
PROVIDERS: ATTEND Internal Medicine Cardiovascular Disease
DX: E78.2 Mixed hyperlipidemia (principal)
CPT/HCPCS: 36415; 80061; 84450; 84460

== ENCOUNTER → 2024-08-09 | Outpatient (CLI) | payer MEDICARE ==
--- NOTE | 2024-08-09 11:39 | XR ---
EXAMINATION TYPE: XR cervical spine w flex/ext DATE OF EXAM: 08/09/2024 11:14 AM COMPARISON: None. CLINICAL INDICATION: Male, 68 years old with history of M54.2 Cervicalgia, pain TECHNIQUE: Frontal, lateral, oblique, swimmers, and open mouth view of the cervical spine are obtaine d. Flexion and extension views obtained as well. FINDINGS: Postoperative changes of ACDF at C5-6 and C6-7. Anterior fixation plate and screws in place . Intervertebral disc spacers noted to be in place. Postoperative alignment appears near-anatomic. Al ignment remains stable at neutral, flexion and extension. Moderate degenerative narrowing and spondyl osis at C4-5. No fracture or subluxation seen. IMPRESSION: Postoperative changes as noted above. [facility], , 08/09/2024 11:37 AM
[2024-08-09 15:25] LABS: BUN/Creat Ratio 16.56 Ratio (12.00-20.00); Blood Urea Nitrogen 14.9 mg/dL (9.0-27.0); Carbon Dioxide 21.6 mmol/L (21.6-31.8); Chloride 103 mmol/L (96-109); Glucose 137 mg/dL (70-110); Potassium 4.9 mmol/L (3.5-5.5); Sodium 136 mmol/L (135-145)
== END | disposition home or self-care (01) ==
LOC: LABWHC1 10:30
PROVIDERS: ATTEND Family Medicine
DX: M54.2 Cervicalgia (principal); E11.9 Type 2 diabetes mellitus without complications
CPT/HCPCS: 36415; 72052; 80048; 83036

== ENCOUNTER 2024-08-11 06:14 | Day surgery (SDC) | payer MEDICARE ==
[2024-08-09 14:52] VITALS: BMI 27.8
[~2024-08-11 06:14] MED LIST changes: -CIPROFLOXACIN/DEXTROSE PMX 400 MG in DEXTROSE/WATER 1 200ML.BAG IVPB PRN; -DEXAMETHASONE SOD PHOSPHATE 4 MG/ML 1 ML VIAL IV ONE; -LIDOCAINE 1% (10MG/ML) FOR IV START INTRADERMA PRN; -ONDANSETRON 4 MG/2 ML VIAL IVP ONE; -fentaNYL (PF) 50 MCG/ML 2 ML AMP IV PRN
[2024-08-11 07:05] LABS: Glucose,Whole Blood 121 mg/dL (70-110)
[2024-08-11 07:07] VITALS: TEMP 98.2
[2024-08-11] MEDS ORDERED: IOPAMIDOL M200 10 ML VIAL ONE (07:23)
[2024-08-11] MEDS ORDERED: methylPREDNISolone ACETATE 40 MG/ML 1 ML VIAL ONE (07:23)
--- NOTE | 2024-08-11 07:39 | P.PCN ---
Date of Procedure: 08/11/24 Procedure(s) Performed: PREOP DIAGNOSIS: 1- Lumbar postlaminectomy syndrome. POSTOP DIAGNOSIS:1- Lumbar postlaminectomy syndrome. PROCEDURE: 1-Caudal epidural steroid injection with epidurolysis and epidurogram under fluoroscopic guidance. (Fluoroscopy images in the rad Dept ) 2-caudal epidurogram. ANESTHESIA: Lidocaine 1% 5 mL only EBL: Minimal. PROCEDURE INDICATION: The patient with post-laminectomy syndrome with low back pain and radiculopathy radiating down in both legs, here for a caudal epidural steroid injection with epidurolysis. PROCEDURE DESCRIPTION: The patient was seen and identified in the preoperative area. Risks, benefits, complications, and alternatives were discussed with the patient. The patient agreed to proceed with the procedure and signed the consent, and vital signs were stable. Patient was taken to the OR and time out was completed. The patient was placed in the prone position on procedure table and a pillow was placed under the abdomen to reduce lumbar lordosis. The lumbosacral area was prepped and draped in the usual sterile fashion. Vital signs were closely monitored during the procedure. lateral view and the anterior-posterior plates of the sacrum were identified with infiltration of the area overlying the sacral hiatus with 1% lidocaine .A 17 gauge RK epidural needle was used to advance through the sacral hiatus into the caudal epidural space. Omnipaque 180 dye. 2cc was injected and the position of the needle was verified to be in the midline. A Racz catheter was introduced into the epidural space and was advanced towards the L5-S1 interspace under direct fluoroscopic guidance. Multiple passes were made with the catheter for lysis of epidural adhesions. Depo-Medrol 40 mg ( preservative-free) with 3ml of preservative free Lidocaine 1% and 5 ml of preservative free normal saline was injected slowly. Additional spread was seen to L4 under fluoroscopy. The needle and the catheter were withdrawn intact. EPIDUROGRAM: Omnipaque 180 mg dye 2 ml was injected with spread of the dye into the caudal epidural space and with spread cutoff at L5 prior to epidurolysis. Post epidurolysis dye 2 ml was injected and spread was seen to L3-4.There was further spread of the solution together with the dye above the L3 COMPLICATIONS: None. DISPOSITION / PLANS: The patient was placed in a supine position and transferred to the recovery area in a stable condition for observation and was discharged from the recovery room after meeting discharge criteria. Home discharge instructions given to the patient by the staff. The patient was reexamined prior to discharge. The patient will schedule a follow up in the clinic in 2-4 weeks. Plavix last dose was taken more than 7 days ago
--- NOTE | 2024-08-11 07:55 | FL ---
Fluoroscopy History: M54.16 CDL EPDI W/ LYSIS ADHESION [id number] DAP, 9 SECONDS OF FLUORO [facility], , 08/11/2024 7:52 AM
[2024-08-11 08:07] VITALS: BP 125/70; PULSE 68; RESP 18
== END 2024-08-11 08:14 | disposition home or self-care (01) ==
LOC: ORPAIN 06:14
PROVIDERS: ATTEND Specialist
DX: M96.1 Postlaminectomy syndrome, not elsewhere classified (principal)
CPT/HCPCS: 62264; Q9966; J1010